=== PATIENT | male | born 1945 | race Caucasian/White ===

== ENCOUNTER 2021-09-19 07:31 | Outpatient (CLI) | payer OTHER, SELFPAY | END 2021-09-19 07:32 | disposition home or self-care (01) | LOC: INJ CL 07:32 | PROVIDERS: PCP Internal Medicine; Visit Provider Family Medicine | DX: M51.36 Other intervertebral disc degeneration, lumbar region (principal); M54.16 Radiculopathy, lumbar region | CPT/HCPCS: 62323; J0702; Q9966 ==

== ENCOUNTER 2021-10-11 08:54 | Outpatient (CLI) | payer OTHER, SELFPAY ==
[2021-10-11 11:42] LABS: Albumin* 4.1 g/dL (3.3-5.0); Chloride* 106 mmol/L (96-114)
[2021-10-11 11:43] LABS: Potassium* 4.2 mmol/L (3.6-5.1); Sodium* 138 mmol/L (135-149)
[2021-10-11 11:45] LABS: Bilirubin Total* 0.5 mg/dL (0.1-1.5); Carbon Dioxide* 26 mmol/L (20-32); Cholesterol* 158 mg/dL (90-199); Creatinine* 0.8 mg/dL (0.5-1.5); Estimated Glomerular Filt Rate 92 ml/min
[2021-10-11 11:46] LABS: Alanine Aminotransferase* 15 U/L (4-50); Alkaline Phosphatase* 94 U/L (40-150); Aspartate Amino Transferase* 21 U/L (12-35); Blood Urea Nitrogen* 9 mg/dL (7-30); Calcium* 9.4 mg/dL (8.4-10.6); Glucose* 96 mg/dL (60-115); HDL Cholesterol* 52 mg/dL (>=40); LDL Cholesterol Calculated 87 mg/dL (<100); Triglycerides* 94 mg/dL (40-149)
[2021-10-11 12:16] LABS: PSA Screen* 1.07 ng/mL (0.10-4.00)
== END 2021-10-11 08:55 | disposition home or self-care (01) ==
PROVIDERS: PCP Internal Medicine; Visit Provider Internal Medicine
DX: J30.2 Other seasonal allergic rhinitis (principal); J44.9 Chronic obstructive pulmonary disease, unspecified; Z12.5 Encounter for screening for malignant neoplasm of prostate; Z13.6 Encounter for screening for cardiovascular disorders
CPT/HCPCS: 80053; 80061; 84153; 84443

== ENCOUNTER 2022-01-22 11:34 | Emergency (ER) | payer OTHER, SELFPAY ==
[2022-01-22 11:46] VITALS: BP 129/77; PULSE 81; RESP 16; TEMP 37.4; O2SAT 95; BMI 26.6
--- NOTE | 2022-01-22 13:28 | ED.GENADULT ---
HPI - General Adult General Time Seen by Provider: 13:29 Date Seen: 01/22/22 Chief complaint: Back Injury/Pain Stated complaint: Lower back/right side pain Time Seen by Provider: 01/22/22 12:00 Source: patient and RN notes reviewed Mode of arrival: ambulatory (With a cane) Limitations: no limitations History of Present Illness HPI narrative: Butch is a 76-year-old male coming into the ER for concern of new right-sided low back issues. Over the last few days he has been starting to have right low back pain that wraps around into the right low abdomen. There has maybe been a little nausea with this. He does note that he has had increased bowel movements but not diarrheal. He has chronic back issues stemming 23 years ago. He relays the history to me that it started with a back surgery in [facility]. They ended up causing a dural leak, and he states he was leaking CSF fluid. He ended up with 2 different surgeries in the same week. He states he ended up seeing the top neurosurgeon in [place] to give him disability. He notes he is had back injections, he is scheduled to see a neurosurgeon this coming month in the beginning of February. No active fevers. He notes he is sleeping but when he goes to get up in the morning they will be severe pain there. He is wondering if this could be something in his abdomen. He has had a CABG per his report. He is taking chronic oxycodone about twice a day and 1000 mg of Tylenol usually twice a day. He states for this new right-sided low back pain he did go to the smoke shop and got some CBD gummies. They did not help at all and he has not tried them again. He was scheduled to get medicinal marijuana but thought twice about it and has not went through with that. He states he was cleared to get it. He is worried about taking it. Related Data Home Medications Medication Instructions Recorded Confirmed aspirin 81 mg chewable tablet 81 mg PO QDAY 10/11/21 01/19/22 atenolol 25 mg tablet 25 mg PO QDAY 10/11/21 01/19/22 colchicine 0.6 mg tablet 0.6 mg PO QDAY 10/11/21 01/19/22 metoprolol succinate 100 mg 100 mg PO QDAY 10/11/21 01/19/22 tablet,extended release 24 hr acetaminophen 500 mg tablet 500 - 1,000 mg PO Q6H PRN 11/09/21 01/19/22 budesonide-formoterol HFA 80 2 inhalation BID 11/09/21 01/19/22 mcg-4.5 mcg/actuation aerosol inhaler naloxone 4 mg/actuation nasal spray 4 intranasal 11/09/21 01/19/22 omeprazole 20 mg capsule,delayed 20 mg PO DAILY 11/09/21 01/19/22 release vitamin E (dl, acetate) 180 mg 180 mg PO QDAY 11/09/21 01/19/22 (400 unit) capsule THC gummies PO PRN 11/10/21 01/19/22 fexofenadine 180 mg tablet 180 mg PO QDAY 11/10/21 01/19/22 (Joanna Allergy) melatonin 5 mg capsule 10 mg PO .Bedtime as needed PRN 11/10/21 01/19/22 cpap 01/17/22 01/19/22 Previous Rx's Medication Instructions Recorded methimazole 5 mg tablet 5 mg PO QDAY #90 tabs 10/02/21 losartan 25 mg tablet 25 mg PO QDAY Hypertension #90 tabs 10/11/21 triamcinolone acetonide 0.1 % 1 applic topical BID #80 grams 11/10/21 topical cream albuterol sulfate 90 mcg/actuation 2 puff inhalation Q4H PRN 11/14/21 aerosol inhaler shortness of breath or wheezing #8.5 grams fluticasone propionate 50 2 spray intranasal BID Allergies 11/21/21 mcg/actuation nasal #48 grams spray,suspension ipratropium 0.5 mg-albuterol 3 mg 3 ml inhalation TID PRN copd 11/21/21 (2.5 mg base)/3 mL nebulization #1,080 mL soln nitroglycerin 0.4 mg sublingual 0.4 mg sublingual Q5-15M Angina 11/21/21 tablet #100 tabs tiotropium bromide 18 mcg capsule 1 cap inhalation QDAY COPD #90 caps 11/21/21 with inhalation device (Spiriva with HandiHaler) bacitracin 500 unit/gram topical 1 applic topical BID Rash #1 ea 12/06/21 ointment allopurinol 100 mg tablet 100 mg PO DAILY #90 tabs 12/11/21 ipratropium bromide 21 mcg (0.03 2 spray intranasal TID #30 mL 12/11/21 %) nasal spray rosuvastatin 40 mg tablet 40 mg PO DAILY #90 tabs 12/11/21 cyanocobalamin (vitamin B-12) 1,000 mcg PO QDAY Anemia #90 tabs 12/13/21 1,000 mcg tablet roflumilast 500 mcg tablet 500 mcg PO QDAY Anemia #90 tabs 12/13/21 (Daliresp) zolpidem 10 mg tablet 10 mg PO QHS Insomnia #30 tabs 01/04/22 nystatin 100,000 unit/mL oral 500,000 unit (5 mL) PO Q6H #200 mL 01/09/22 suspension oxycodone 5 mg capsule 5 mg PO BID PRN pain #60 caps 01/11/22 cholecalciferol (vitamin D3) 25 50 mcg PO QDAY #180 tabs 01/18/22 mcg (1,000 unit) chewable tablet (Vitamin D3) prednisone 20 mg tablet 20 mg PO BID #10 tabs 01/22/22 Allergies Allergy/AdvReac Type Severity Reaction Status Date / Time bupropion Allergy Unknown tinnitus Verified 01/22/22 11:53 isosorbide Allergy Unknown Headache Verified 01/22/22 11:53 spironolactone Allergy Unknown gynecomasti Verified 01/22/22 11:53 a topiramate Allergy Unknown doses Verified 01/22/22 11:53 higher than 50 daily not tolerated venlafaxine Allergy Unknown Anxiety Verified 01/22/22 11:53 Review of Systems Status of ROS: Reports: 10 or more systems reviewed and unremarkable except as noted in History and below [facility] Medical History (Updated 01/22/22 @ 15:54 by Tiffany Correia MD) Allergies Anemia Angina at rest Aortic aneurysm Carpal tunnel syndrome of right wrist Chronic low back pain Chronic neck pain Chronic obstructive pulmonary disease Chronic pancreatitis Chronic right shoulder pain (2018) Chronic, continuous use of opioids Congestive heart failure COPD (chronic obstructive pulmonary disease) Coronary artery disease Enlarged prostate Gastroesophageal reflux disease History of adenomatous polyp of colon (02/12/18) History of calcium pyrophosphate deposition disease (CPPD) History of depression History of malignant neoplasm of skin Hyperlipidemia Hypertension Hyperthyroidism Insomnia Monoclonal gammopathy Obstructive sleep apnea treated with continuous positive airway pressure (CPAP) Peripheral vascular disease Rash Seasonal allergic rhinitis Surgical History (Updated 01/11/22 @ 13:37 by Phyllis Owens) History of aortic aneurysm repair (2012) History of appendectomy History of carpal tunnel surgery of left wrist (2007) History of carpal tunnel surgery of right wrist (11/30/20) History of cholecystectomy History of colonoscopy with polypectomy History of endarterectomy (2012) History of operative procedure on hip (04/01/18) History of rotator cuff surgery (2007) History of spinal surgery History of umbilical hernia repair (04/16/13) S/P cubital tunnel release (11/30/20) Status post six vessel coronary artery bypass graft (1996) Family History (Updated 10/03/21 @ 12:37 by Trevin Vegas) Father Asthma Sister Asthma Breast cancer Lung cancer Mother Dementia Rheumatoid arthritis Social History Narrative: , five daughters, does not use illicit drugs, nonsmoker Smoking Status: Former smoker Do you use any of these nicotine containing products: None Second hand tobacco smoke exposure: No How often do you have a drink containing alcohol: monthly or less How often do you have six or more drinks on one occasion: Less than monthly AUDIT-C Alcohol total score: 2 Non-prescribed substance use: marijuana (any form) Non-prescribed substance use details: was trying THC gummies but not effective and hasn't had them in a while. Feeling down, depressed, or hopeless: several days service: No Exam Const: Vital Signs, click to edit/add: Vital Signs - 24 hr 01/22/22 11:46 01/22/22 14:06 Temperature 99.4 F Pulse Rate [Pulse Oximeter] 81 77 Respiratory Rate 16 20 Blood Pressure [Le ft Upper Arm] 129/77 127/72 Pulse Oximetry 95 96 Oxygen Delivery Me thod Room Air Documenting provider has reviewed patient's vital signs: yes Common normals: no apparent distress, average body habitus, oriented x3, no limitations, healthy appearing and alert General appearance: cooperative, comfortable, well kempt and well developed HENMT: Common normals: normocephalic, head/scalp atraumatic and hearing grossly normal bilaterally Head and scalp: normocephalic and atraumatic Eye: Common normals: PERRL, EOMs intact bilaterally, conjunctivae normal and no scleral icterus Conjunctiva: conjunctiva(e) normal Pupil: PERRL Neck & C-Spine: Common normals: full ROM, no lymphadenopathy, supple, no meningeal signs, no JVD and thyroid normal Thyroid: thyroid normal Chest: Common normals: inspection of chest normal Resp: Common normals: normal respiratory effort, no retractions, no use of accessory muscles and clear to auscultation bilaterally Auscultation: clear to auscultation bilaterally Cardio: Common normals: no JVD, regular rate, regular rhythm, S1 normal heart sound, S2 normal heart sound, no gallops, no clicks and no murmurs Rate: regular rate Rhythm: regular rhythm Heart sounds: S1 normal and S2 normal GI: Common normals: Normal to inspection, nondistended, normoactive bowel sounds present, soft to palpation (Mild right lower abdominal tenderness without rebound or guarding), no hepatosplenomegaly and no masses Palpation: soft (Mild right lower abdominal tenderness without rebound or guarding) and no hepatosplenomegaly : Common normals: no CVA tenderness Bladder/kidney exam: no CVA tenderness Back & Pelvis: Common normals: no CVA tenderness, thoracic and lumbar spine normal to inspection (Outside of well-healed lower central lumbar spine incision), no thoracic nor lumbar tenderness and straight leg raise negative bilaterally Extremity: Other: No lower extremity edema, no calf tenderness. Ambulates with a cane and does not seem to have any significant difficulty doing so. Neuro: Common normals: oriented x3, CN's II-XII intact bilaterally, moves all extremities, no focal motor deficits and no sensory deficits noted Sensorium/orientation: alert Meningeal signs: no meningeal signs Speech: speech normal Psych: Appearance: well kempt Course Course Hospital Course: Agree with patient, given his age do think we need to rule out intra-abdominal pathology. I have discussed with him that it sounds musculoskeletal in I do wonder if it is stemming from his back. We will get a noncontrast CT, obtain some basic blood work as well as attempt to collect a urinalysis from him. If these are normal, think we can go on with the assumption that this is musculoskeletal pain and likely coming from his back. We will guide therapy accordingly. Reevaluation(s) Reevaluation #1: Reviewed with patient his CT is not showing any significant new findings. His labs look reassuring. We discussed that this seems like it might be his back based on the evaluation today. We discussed possibly trying some prednisone. He thinks he would like to try that. He states he has not taken any recently. Time: 15:57 Vital Signs Vital signs: Initial Vital Signs Temperature 99.4 F 01/22/22 11:46 Temperature Source Temporal Artery Scan 01/22/22 11:46 Pulse Rate 81 01/22/22 11:46 Pulse Rhythm 01/22/22 11:46 Pulse Strength 3+ Normal 01/22/22 11:46 Respiratory Rate 16 01/22/22 11:46 Blood Pressure 129/77 01/22/22 11:46 Blood Pressure Mean 94 01/22/22 11:46 Blood Pressure Position Sitting 01/22/22 11:46 Pulse Oximetry 95 01/22/22 11:46 Oxygen Delivery Method 01/22/22 11:46 Vital Signs Temperature 99.4 F 01/22/22 11:46 Pulse Rate 81 01/22/22 11:46 Respiratory Rate 16 01/22/22 11:46 Blood Pressure 129/77 01/22/22 11:46 Pulse Oximetry 95 01/22/22 11:46 Oxygen Delivery Method 01/22/22 11:46 Temperature 99.4 F 01/22/22 11:46 Pulse Rate 77 01/22/22 14:06 Respiratory Rate 20 01/22/22 14:06 Blood Pressure 127/72 01/22/22 14:06 Pulse Oximetry 96 01/22/22 14:06 Oxygen Delivery Method 01/22/22 11:46 Medical Decision Making Lab Data Lab results reviewed: Yes I reviewed the patient's lab results Labs: Lab Results 01/22/22 01/22/22 01/22/22 Range/Units 02:23 02:23 13:43 WBC 8.66 (4.50-11.00) K/uL RBC 4.65 (4.30-5.90) m/uL Hgb 13.2 L (13.5-17.5) gm/dL Hct 41.4 (37.0-53.0) % MCV 89 (80-100) fL MCH 28 (26-34) pg MCHC 32 (32-36) gm/dL RDW Coeff of Donnie 13.0 (11.5-15.5) % Plt Count 179 (140-440) K/uL Neut % (Auto) 66.6 (42.0-72.0) % Lymph % (Auto) 23.1 (20-44) % [place] % (Auto) 8.1 (0.0-11.0) % Eos % (Auto) 1.8 (0.0-7.0) % Baso % (Auto) 0.1 (0.0-3.0) % Neut # (Auto) 5.76 (1.7-7.0) K/uL Lymph # (Auto) 2.00 (0.90-2.90) K/uL [place] # (Auto) 0.70 (0.00-0.90) K/UL Eos # (Auto) 0.16 (0.00-0.50) K/uL Baso # (Auto) 0.01 (0.00-0.30) K/uL Abs Immat Gran (auto) 0.03 (0.00-0.30) K/uL Imm/Tot Granulo (auto) 0.3 % Sodium 137 (135-149) mmol/L Potassium 4.4 (3.6-5.1) mmol/L Chloride 104 (96-114) mmol/L Carbon Dioxide 25 (20-32) mmol/L BUN 19 (7-30) mg/dL Creatinine 0.9 (0.5-1.5) mg/dL Estimated Creat Clear 72.13 Estimated GFR 89 ml/min Glucose 98 (60-115) mg/dL Calcium 9.4 (8.4-10.6) mg/dL Urine Color Yellow (Yellow) Urine Appearance Clear (Clear) Urine pH 5.0 (5.0-8.5) Ur Specific [place] >= 1.030 (1.000-1.030) Urine Protein Negative (Negative) Urine Glucose (UA) Negative (Negative) Urine Ketones Negative (Negative) Urine Blood Negative (Negative) Urine Nitrite Negative (Negative) Urine Bilirubin Negative (Negative) Urine Urobilinogen 0.2 (0.2-1.0) Ur Leukocyte Esterase Negative (Negative) Imaging Data CT scan - abdomen: Attestation: I have reviewed the pertinent imaging results. Radiologist's impression: Patient: BUTCH CANTRELL Facility:[facility] Patient ID:?[id number] Site Patient ID:?[id number]. Site :?[id number] Study:?CT Abdomen/Pelvis WITHOUT-01/22/2022 2:03:22 PM Ordering Physician:Mariusz Allen Final Report: INDICATION: Low back pain, right-sided pain. TECHNIQUE: CT of the abdomen and pelvis without intravenous contrast. Coronal and sagittal reconstructions. COMPARISON: CT of the abdomen and pelvis 02/11/2020. FINDINGS: The unenhanced liver, spleen, and adrenal glands are normal in appearance. Cholecystectomy. No biliary dilation. Scattered calcifications throughout the pancreas likely related to sequela of prior pancreatitis. No hydronephrosis or ureteral dilation. Mildly prominent bilateral extrarenal pelves. No obstructing urinary calculi identified. The bladder is normal in appearance. Mildly enlarged prostate gland. No small bowel dilation. Moderate to large amount of stool throughout the colon. Redundant sigmoid colon. Appendectomy. No intraperitoneal free air or fluid. Aortoiliac vascular calcifications. Infrarenal abdominal aortic aneurysm status post aortobiiliac stent graft. Stable size of the excluded aneurysm sac. Graft patency cannot be evaluated without IV contrast. Surgical clips in the groin bilaterally. No lymphadenopathy. Degenerative changes of the spine. Stable Schmorl`s nodes in the inferior endplates of L1 and L2. New prominent endplate sclerosis at L1-L2. Posterior instrumented fusion of L4-S1. Stable grade 1-2 anterolisthesis of L5 on S1. Degenerative changes of the hips with sclerosis in the femoral heads. Prior screw tract left proximal femur. Linear atelectasis or scarring in the lung bases. Coronary artery calcifications. IMPRESSION: 1. No acute findings in the abdomen or pelvis on this noncontrast exam. 2. Moderate to large amount of stool. 3. New prominent endplate sclerosis at L1-L2. Please note that all CT scans at this facility use dose modulation, iterative reconstruction, and/or weight-based dosing when appropriate to reduce radiation dose to as low as reasonably achievable. Dictated by Chhaya Sauceda MD @ 01/22/2022 3:44:37 PM (Electronic Signature) Critical Care Time Critical Care Time Critical Care Time: No Discharge Plan Discharge Clinical Impression: Acute right-sided low back pain Patient Disposition: Home, Self-Care Condition: Stable Instructions: Acute Low Back Pain (ED) Additional Instructions: Try prednisone, take as prescribed and take with food to protect your stomach. Follow up in clinic with her primary care provider in the next 1-2 weeks, sooner if worsening or concerns. If you develop any bowel or bladder dysfunction, concerns of motor dysfunction or weakness into the legs, do need to be re-evaluated. Activity Level: Activity as Tolerated Prescriptions: New prednisone 20 mg tablet 20 mg PO BID Qty: 10 0RF No Action naloxone 4 mg/actuation spray,non-aerosol 4 intranasal vitamin E (dl, acetate) 180 mg (400 unit) capsule 180 mg PO QDAY acetaminophen 500 mg tablet 500 - 1,000 mg PO Q6H PRN Rx Instructions: NO MORE THAN 4000 MG/DAY omeprazole 20 mg capsule,delayed release(DR/EC) 20 mg PO DAILY budesonide-formoterol 80-4.5 mcg/actuation HFA aerosol inhaler 2 inhalation BID fexofenadine [Joanna Allergy] 180 mg tablet 180 mg PO QDAY melatonin 5 mg capsule 10 mg PO .Bedtime as needed PRN THC gummies PO PRN triamcinolone acetonide 0.1 % cream 1 applic topical BID Qty: 80 0RF (DME) cpap 0 .Route .MEDSUPPLY colchicine 0.6 mg tablet 0.6 mg PO QDAY metoprolol succinate 100 mg tablet extended release 24 hr 100 mg PO QDAY atenolol 25 mg tablet 25 mg PO QDAY aspirin 81 mg tablet,chewable 81 mg PO QDAY nystatin 100,000 unit/mL suspension 500,000 unit PO Q6H Qty: 200 0RF Rx Instructions: swish and swallow methimazole 5 mg tablet 5 mg PO QDAY Qty: 90 3RF losartan 25 mg tablet 25 mg PO QDAY Qty: 90 3RF albuterol sulfate 90 mcg/actuation HFA aerosol inhaler 2 puff inhalation Q4H PRN (Reason: shortness of breath or wheezing) Qty: 8.5 11RF Spiriva with HandiHaler 18 mcg capsule, w/inhalation device 1 cap inhalation QDAY Qty: 90 3RF ipratropium-albuterol 0.5 mg-3 mg(2.5 mg base)/3 mL solution for nebulization 3 ml inhalation TID PRN (Reason: copd) Qty: 1080 2RF nitroglycerin 0.4 mg tablet, sublingual 0.4 mg sublingual Q5-15M Qty: 100 2RF fluticasone propionate 50 mcg/actuation spray,suspension 2 spray intranasal BID Qty: 48 2RF bacitracin 500 unit/gram ointment 1 applic topical BID Qty: 1 1RF allopurinol 100 mg tablet 100 mg PO DAILY Qty: 90 2RF rosuvastatin 40 mg tablet 40 mg PO DAILY Qty: 90 2RF ipratropium bromide 21 mcg (0.03 %) spray,non-aerosol 2 spray intranasal TID Qty: 30 8RF cyanocobalamin (vitamin B-12) 1,000 mcg tablet 1,000 mcg PO QDAY Qty: 90 3RF Daliresp 500 mcg tablet 500 mcg PO QDAY Qty: 90 2RF zolpidem 10 mg tablet 10 mg PO QHS Qty: 30 0RF oxycodone 5 mg capsule 5 mg PO BID PRN (Reason: pain) Qty: 60 0RF cholecalciferol (vitamin D3) [Vitamin D3] 25 mcg (1,000 unit) tablet,chewable 50 mcg PO QDAY Qty: 180 3RF Follow Up/Referrals: Yordy Morin MD [Primary Care Provider] - Stand Alone Forms: [employer] Info Instructions
--- NOTE | 2022-01-22 13:42 | CRLHL7_ITS ---
For Patients: As a result of the Century Cures Act, medical imaging exams and procedure reports are released immediately into your electronic medical record. You may view this report before your referring provider. If you have questions, please contact your health care provider. INDICATION: Low back pain, right-sided pain. TECHNIQUE: CT of the abdomen and pelvis without intravenous contrast. Coronal and sagittal reconstructions. COMPARISON: CT of the abdomen and pelvis 02/11/2020. FINDINGS: The unenhanced liver, spleen, and adrenal glands are normal in appearance. Cholecystectomy. No biliary dilation. Scattered calcifications throughout the pancreas likely related to sequela of prior pancreatitis. No hydronephrosis or ureteral dilation. Mildly prominent bilateral extrarenal pelves. No obstructing urinary calculi identified. The bladder is normal in appearance. Mildly enlarged prostate gland. No small bowel dilation. Moderate to large amount of stool throughout the colon. Redundant sigmoid colon. Appendectomy. No intraperitoneal free air or fluid. Aortoiliac vascular calcifications. Infrarenal abdominal aortic aneurysm status post aortobiiliac stent graft. Stable size of the excluded aneurysm sac. Graft patency cannot be evaluated without IV contrast. Surgical clips in the groin bilaterally. No lymphadenopathy. Degenerative changes of the spine. Stable Schmorl`s nodes in the inferior endplates of L1 and L2. New prominent endplate sclerosis at L1-L2. Posterior instrumented fusion of L4-S1. Stable grade 1-2 anterolisthesis of L5 on S1. Degenerative changes of the hips with sclerosis in the femoral heads. Prior screw tract left proximal femur. Linear atelectasis or scarring in the lung bases. Coronary artery calcifications. IMPRESSION: 1. No acute findings in the abdomen or pelvis on this noncontrast exam. 2. Moderate to large amount of stool. 3. New prominent endplate sclerosis at L1-L2. Please note that all CT scans at this facility use dose modulation, iterative reconstruction, and/or weight-based dosing when appropriate to reduce radiation dose to as low as reasonably achievable. Dictated by Chhaya Sauceda MD @ 01/22/2022 3:44:37 PM (Electronically Signed)
--- OUTSIDE RECORDS SUMMARY | 2022-01-22 13:46 | XMS_ITS | Clinical Summary ---
:1945 Author Organization [facility] [place] [address] Care Team Providers Name Role Phone Yordy Morin MD Primary Care Provider Allergies Active Allergy Reactions Severity Noted Date Comments Bupropion Tinnitus 12/30/2017 tinnitus Isosorbide Headache 08/19/2013 Headache Spironolactone Other - Describe In Medium 10/31/2018 gyneco mastia Comment Field Topiramate *Unknown 12/01/2018 Doses higher th an 50 daily not tolerated Venlafaxine Anxiety 07/13/2019 anxiety Medications Medication Sig Dispensed Refills Start Date End Date Status albuterol HFA 0 08/16/2021 Activ e (PRO-AIR; VENTOLIN; PROVENTIL) 90 mcg/actuation inhaler allopurinoL 0 07/05/2021 Active (ZYLOPRIM) 100 mg tablet Symbicort 80-4.5 0 08/07/2021 Ac tive mcg/actuation (80-4.5 mcg each actuation) inhaler clindamycin 1% 0 09/01/2020 Acti ve (CLEOCIN-T) 1 % lotion cyanocobalamin Take 1 Tablet 0 01/26/2020 Active (VITAMIN B12) 1,000 by mouth once mcg tablet daily. clotrimazole SLOWLY DISSOLVE 0 02/16/2020 Active (MYCELEX JORDANA) 10 ONE JORDANA IN mg jordana MOUTH 5 TIMES DAILY FOR 6 DAYS fluticasone (50 mcg USE 2 SPRAYS 0 09/11/2019 Active per actuation) nasal INTO BOTH solution (FLONASE) NOSTRILS DAILY ipratropium 0 06/07/2021 Active (ATROVENT NASAL) 21 mcg (0.03 %) nasal spray albuterol-ipratropiu 0 06/19/2021 Active m (DUONEB) (2.5-0.5 mg) in 3 mL NEBULIZATION solution losartan (COZAAR) 25 0 06/27/2021 Active mg tablet melatonin 3 mg Take 3 mg by 0 Ac tive tablet mouth. methIMAzole 0 10/23/2020 Active (TAPAZOLE) 5 mg tablet nitroglycerin 0 06/20/2021 Activ e (NITROSTAT) 0.4 mg sublingual tablet omeprazole 0 08/16/2021 Active (PRILOSEC) 20 mg Delayed-Release capsule oxyCODONE 0 08/10/2021 Active (ROXICODONE) 5 mg immediate release tablet Daliresp 500 mcg 0 07/04/2021 Ac tive tablet rosuvastatin 0 07/05/2021 Active (CRESTOR) 40 mg tablet sildenafil citrate TAKE ONE-HALF 0 01/11/2021 Active (VIAGRA) 100 mg TO ONE TABLET tablet BY MOUTH DAILY NEEDED spiriva 18 mcg 0 06/19/2021 Acti ve inhalation capsule colchicine 0.6 mg Take 1 Tablet 0 10/27/2019 Active tablet by mouth 2 times daily. tiotropium (spiriva) INHALE THE 0 01/08/2020 Active 18 mcg inhalation CONTENTS OF 1 capsule CAPSULE ONE TIME DAILY tamsulosin (FLOMAX) Take 1 Capsule 0 10/16/2019 Active 0.4 mg capsule by mouth once daily. atenoloL (TENORMIN) Take 25 mg by 0 Active 25 mg tablet mouth. cholecalciferol Take 1 Capsule 0 12/25/2021 Active (Vitamin D-3) 2,000 (2,000 units) unit capsule by mouth two times daily. metoprolol succinate Take 1 Tablet 90 Tablet 0 01/12/2022 Active (TOPROL XL) 100 mg (100 mg) by Sustained-Release mouth once tabletIndications: daily. Please ASHD schedule with (arteriosclerotic cardiology for heart disease) additional refills. metoprolol succinate Take 1 Tablet 90 Tablet 4 04/10/2021 11/0 Discontinued (Toprol XL) 100 mg (100 mg) by 2 Sustained-Release mouth once tabletIndications: daily. ASHD (arteriosclerotic heart disease) Active Problems Problem Noted Date Benign prostatic hyperplasia with weak urinary stream 10/16/2019 Overview: Last Assessment & Plan: Formatting of this note might be differe nt from the original. Urology appt next week Monoclonal gammopathy 08/19/2019 Arthritis of right acromioclavicular joint 07/09/2019 Overview: Last Assessment & Plan: Formatting of this note might be differe nt from the original. Orthopedics steroid injection 2 years ag o. He does not recall benefit or lack thereof. Recommended trial of repeat injection Avascular necrosis of right humeral head 07/09/2019 Overview: Last Assessment & Plan: Formatting of this note might be differe nt from the original. Complains of shoulder pain. Imaged 2 yea rs ago with possible loose body. He has topical and oral analgesics Actinic keratosis 10/16/2018 Overview: Last Assessment & Plan: Formatting of this note might be differe nt from the original. Discussed chapo history, rx Avascular necrosis of bone of hip, left 10/16/2018 Overview: Last Assessment & Plan: Formatting of this note might be differe nt from the original. He complains about pain. S/p coring proc edure, bike every other day. Discussed chronic pain, options. Ortho involved Intrinsic eczema 09/04/2018 Graves disease 06/30/2018 Overview: Last Assessment & Plan: Formatting of this note might be differe nt from the original. Endocrinology adjusted methimazole Tinnitus, bilateral 05/09/2018 Overview: Last Assessment & Plan: Formatting of this note might be differe nt from the original. Reduced with new hearing aides Iron deficiency 03/28/2018 History of tobacco abuse 08/21/2017 Overview: Last Assessment & Plan: Formatting of this note might be differe nt from the original. Now quit 3 years Peripheral polyneuropathy 08/21/2017 Overview: Last Assessment & Plan: Formatting of this note might be differe nt from the original. Opioid therapy Continuous opioid dependence 05/21/2017 Overview: Last Assessment & Plan: Formatting of this note might be differe nt from the original. Stable use Chronic pain syndrome 04/22/2017 Overview: Formatting of this note might be differe nt from the original. Patient is followed by Dr Brandon li MD for ongoing prescription of pain medication. All refills should only be approved by this provider, or covering partner. Last Assessment & Plan: Formatting of this note might be differe nt from the original. Controlled substance agreement filed Primary osteoarthritis of ankle 03/05/2017 Sleep related hypoventilation in conditions classified elsewhere 02/03/2016 Overview: Formatting of this note might be differe nt from the original. C PAP Replacing diagnoses that were inactivate d after the 12/09/2020 regulatory import. Primary osteoarthritis of right foot 07/25/2015 Personal history of calcium pyrophosphate deposition d isease (CPPD) 07/04/2015 Overview: Last Assessment & Plan: Formatting of this note might be differe nt from the original. Colchicine therapy Panlobular emphysema 06/13/2015 Overview: Last Assessment & Plan: Formatting of this note might be differe nt from the original. NUR, seems improved subjectively. Carpal tunnel syndrome of right wrist 01/31/2015 REGINALDO (obstructive sleep apnea) 11/23/2014 Overview: Last Assessment & Plan: Formatting of this note might be differe nt from the original. Complex sleep-disordered breathing with central apnea. No CPAP Vitamin B12 deficiency without anemia 08/10/2014 Overview: Formatting of this note might be differe nt from the original. Diagnosis updated by automated process. Provider to review and confirm. Peripheral vascular disease 02/19/2014 Overview: Last Assessment & Plan: Formatting of this note is different fro m the original. BP Readings from Last 1 Encounters: 08/17/19 117/71 continue Formatting of this note might be differe nt from the original. Right femoral endarterectomy with perica rdial patch angioplasty 2012 Last Assessment & Plan: Formatting of this note might be differe nt from the original. S/p Angioplasty, symptoms stable Coronary artery disease involving [place] coronary humberto ry of [place] heart 08/19/2013 without angina pectoris Overview: Formatting of this note might be differe nt from the original. cardiac cath 08/2017: obtuse marginal is chronically occluded; CABG 1996: ADRIENNE to RCA, sequential ARRIAZA to D1, D2 & distal LAD, SVG to OM Last Assessment & Plan: Formatting of this note might be differe nt from the original. Asymptomatic. Cardiology in October Ischemic cardiomyopathy 08/19/2013 Overview: Last Assessment & Plan: Formatting of this note might be differe nt from the original. Discussed. . Nitroglycerin spray rx sent . GERD (gastroesophageal reflux disease) 07/31/2013 Onychomycosis 06/09/2013 Hyperlipidemia LDL goal <70 02/17/2013 Overview: Last Assessment & Plan: Formatting of this note might be differe nt from the original. Treated, continue Rosuvastatin 40mg. Recurrent major depressive disorder, in partial remiss ion 01/28/2013 Overview: Last Assessment & Plan: Formatting of this note might be differe nt from the original. Did not tolerate antidepressants, declin es further interventions Abdominal aortic aneurysm 01/21/2013 Overview: Formatting of this note might be differe nt from the original. Endovascular repair Hx of coronary artery disease 01/21/2013 Overview: Last Assessment & Plan: Formatting of this note might be differe nt from the original. Chronic non cardiac chest pain. Cardiolo gy last 10/2018. Please refer to that note COPD (chronic obstructive pulmonary disease) 2 Tobacco dependence syndrome 08/01/2011 Encounters Date Type Specialty Care Team Description 01/12/2022 Dalton Díaz Refil l Request (Metoprolol Succinate) 12/25/2021 Office Visit Nigel Lanza, Musculo skeletal Problem (2 MD month follow up -[facility]: Left hip intra-artic ular injection on ) 12/25/2021 Travel 11/01/2021 Lab Requisition Emily Pryor MD 10/25/2021 Procedure Only Nigel Lanza, Han acevedoe ([facility]: Left hip MD intra-articular ... 10/25/2021 Travel from Last 3 Months Social History Tobacco Use Types Packs/Day Years Used Date Former Smoker Quit: 09/2016 Smokeless Tobacco: Never Used Tobacco Cessation: Counseling Given: Yes Alcohol Use Standard Drinks/Week Comments Not Currently 0 (1 standard drink = 0.6 oz pure alcoho l) Sex Assigned at Date Recorded Not on file COVID-19 Exposure Response Date Recorded In the last 10 days, have you been in contact with No / Unsu re 12/25/2021 7:31 AM CDT someone who was confirmed or suspected to have Coronavirus/COVID-19? Obstetrics History Last Filed Vital Signs Vital Sign Reading Time Taken Comments Blood Pressure 116/65 12/25/2021 8:00 AM CDT Pulse 67 12/25/2021 8:00 AM CDT Temperature 36.6 ??C (97.9 ??F) 12/25/2021 8:00 AM CDT Respiratory Rate 18 10/25/2021 8:22 AM CDT Oxygen Saturation 95% 12/25/2021 8:00 AM CDT Inhaled Oxygen Concentration - - Weight 92.5 kg (204 lb) 12/25/2021 8:00 AM CDT Height - - Body Mass Index - - Plan of Treatment Health Maintenance Due Date Last Done Comments Pneumococcal series for age 65+ (1 - PCV) 1952 Tdap 1957 Depression screening for age 12+ 1958 BMI (ht and wt on same day) for age 18+ 1964 Hepatitis C screening for age 18-79 1964 Tetanus booster 1966 Colonoscopy through age 75 10/04/1991 Lipids for age 45-75 10/04/1991 Zoster (shingles) series for age 50+ (1 of 1996 2) AAA screening age 55-77 2001 Medicare Wellness for age 65+ 10/04/2011 COVID-19 vaccine series (3 - Booster for 08/04/2020 021, 05/12/2020 Moderna series) Influenza for age 65+ 11/09/2021 Procedures Procedure Name Priority Date/Time Associated Diagnosis Comme nts LAB TRACKING EVENT Routine 10/31/2021 3:30 PM CDT PATH TISSUE EXAM Routine 10/31/2021 3:30 PM Resul ts for this CDT procedure are i n the results section. BEDSIDE US STUDY Routine 10/25/2021 9:51 AM Chronic left hip pain Results for this ARCHIVE CDT Primary osteoarthritis proce dure are in of left hip the results section. from Last 3 Months Results LAB TRACKING EVENT (10/31/2021 3:30 PM CDT) Specimen Anatomical Collection Method Collection Time Receive d Time (Source) Location / / Volume Laterality Other (Other) Client Collect / 10/31/2021 3:30 PM 10/10 3:32 Unknown CDT PM CDT Emily Pryor MD LAB BILL ONLY Performing Organization Address City/State/ZIP Code Phon e Number [facility] [address] [place] [address] LABORATORY-CENTRAL 2000 LABORATORY PATH TISSUE EXAM (10/31/2021 3:30 PM CDT) Component Value Ref Test Analysis Performed At [facility] gist Range Method Time Signature Case Report Pathology Report ?Case: [id number] ? 11/03/2021 [facility] Authorizing Provider: ??Emily Jackson MD ?? Collected: ? 10/31/2021 1530 ? 10:40 AM HEALTH Ordering Location: ? [facility] ?Received: ?11/01/2021 1647 ? CDT [facility]-C Pathologist: ? Nba Diehl MD ? ENTRAL Specimen: ?Right Elbow ? LABORATORY Final A) SKIN, RIGHT ELBOW, BIOPSY: 11/03/2021 [facility] Electronically Diagnosis Squamous cell carcinoma in situ: 10:40 A [facility] signed by Shanita, ?? a. Margins: POSITIVE (Deep and peripheral) CDT LABORATORY-Meme Arango MD on ?? b. No evidence of invasive neoplasm ENTRAL 11/03/2021 at LABORATORY 10:40 AM Clinical A) r/o BCC vs SCC 11/03/2021 [facility] Information vs. irritated 10:[address] [facility] solar lentigo CDT LABORATORY-C [facility]OR[facility]ORY Gross A) Received in formalin, lab eled with the patient's name and right elbow, is a 1.3 x 1.0 cm skin biopsy. There is a 1.2 x 0.9 cm crusted dawson lesion. The specimen is inked red, sectioned and entirely submitted in 2 cassettes. 11/03/2021 [facility] Description 10:[address] [facility] SSS 11/01/2021 CDT LABORATORY-C [facility] LABORATORY Microscopic The final diagnosis is based on microscopic examination of appropriate sections of all specimens. 11/03/2021 [facility] Description 10:40 [facility] CDT LABORATORY-C A) Sections show a hyperkera totic surface epithelium with significant cytologic atypia, marked lack of polarization, and mitotic activity but no invasive component. There is solar elastosis. The presence of red ink is confirmed on tissue sections. ENTRVT LABORATORY Additional 11/03/2021 [facility] Information Interpreted at [facility], Central Laboratory - [address], [place] [address] 10:40 AM HEALTH CDT LABORATORY-C ENTRAL LABORATORY Specimen Anatomical Collection Method Collection Time Receive d Time (Source) Location / / Volume Laterality Other (Right 10/31/2021 3:30 PM 4:47 Elbow) CDT PM CDT Emily Pryor MD PATHOLOGY/CYTOLOGY Performing Organization Address City/State/ZIP Code Phon e Number [facility] [address] [place] [address] LABORATORY-CENTRAL 2000 LABORATORY BEDSIDE US STUDY ARCHIVE (10/25/2021 9:51 AM CDT) Specimen (Source) Anatomical Location Collection Method / Collectio n Time Received Time / Laterality Volume Narrative Vandana [place] - 10/25/2021 9:51 AM CDT The patient was seen for ultrasound guided injection by Dr. Nigel Lanza. Ultrasound was not used for diagnostic p urposes, but to guide the needle placement and document the position of the injection. ?? See patient's EPIC encounter for the det ail of the procedure; see ETHEL for saved images of the injection. Nigel Lanza MD PROCEDURE ORD from Last 3 Months Insurance Payer Benefit Plan / Subscriber ID Effective Dates Phone Addre ss Type Group HUMANA GOLD MR HUMANA CHOICE [id number] 2017-Present [address] [address] [place] [address] Care Teams Cranberry Grower Relationship Specialty Start Date End Date Yordy Morin MD PCP - General Internal Medicine 08/17/211999 [place] [address]
[2022-01-22 14:06] VITALS: BP 127/72; PULSE 77; RESP 20; O2SAT 96
[2022-01-22 14:31] LABS: Appearance Urine Clear (Clear); Bilirubin Urine Negative (Negative); Blood Urine Negative (Negative); Color Urine Yellow (Yellow); Glucose Urine Negative (Negative); Ketones Urine Negative (Negative); Leukocyte Esterase Urine Negative (Negative); Nitrite Urine Negative (Negative); Protein Urine Negative (Negative); Specific Gravity Urine >= 1.030 (1.000-1.030); Urobilinogen Urine 0.2 (0.2-1.0)
[2022-01-22 14:37] LABS: Basophils Absolute Auto 0.01 K/uL (0.00-0.30); Basophils Percent Auto 0.1 % (0.0-3.0); Eosinophils Absolute Auto 0.16 K/uL (0.00-0.50); Eosinophils Percent Auto 1.8 % (0.0-7.0); Hematocrit 41.4 % (37.0-53.0); Hemoglobin* 13.2 gm/dL (13.5-17.5); Immature Granulocytes Abs Auto 0.03 K/uL (0.00-0.30); Immature Granulocytes Pct Auto 0.3 %; Lymphocytes Percent Auto 23.1 % (20-44); Mean Corpuscular HGB Conc 32 gm/dL (32-36); Mean Corpuscular Hemoglobin 28 pg (26-34); Mean Corpuscular Volume 89 fL (80-100); Monocytes Percent Auto 8.1 % (0.0-11.0); Neutrophils Absolute Auto 5.76 K/uL (1.7-7.0); Neutrophils Percent Auto 66.6 % (42.0-72.0); Platelet Count* 179 K/uL (140-440); Red Blood Count 4.65 m/uL (4.30-5.90); White Blood Count* 8.66 K/uL (4.50-11.00)
[2022-01-22 14:39] LABS: Slide Review Reflex No
[2022-01-22 15:03] LABS: Chloride* 104 mmol/L (96-114)
[2022-01-22 15:04] LABS: Potassium* 4.4 mmol/L (3.6-5.1); Sodium* 137 mmol/L (135-149)
[2022-01-22 15:06] LABS: Creatinine* 0.9 mg/dL (0.5-1.5); Est. Creatinine Clearance* 72.13; Estimated Glomerular Filt Rate 89 ml/min
[2022-01-22 15:07] LABS: Blood Urea Nitrogen* 19 mg/dL (7-30); Calcium* 9.4 mg/dL (8.4-10.6); Carbon Dioxide* 25 mmol/L (20-32); Glucose* 98 mg/dL (60-115)
[2022-01-22 17:01] LABS: RBC Urine 0-2 (0-2); WBC Urine 0-2 (0-5)
== END 2022-01-22 16:11 | disposition home or self-care (01) ==
PROVIDERS: Emergency Provider Family Medicine; PCP Internal Medicine
DX: M54.50 Low back pain, unspecified (principal)
CPT/HCPCS: 36415; 74176; 80048; 81001; 85025; 99284

== ENCOUNTER 2022-04-25 06:02 | Day surgery (SDC) | payer OTHER, SELFPAY ==
[2022-04-25] MEDS: LACTATED RINGERS 1000 ML 1,000 ML 100 ML IV (06:15)
[2022-04-25 06:37] VITALS: BMI 27.7
[2022-04-25 06:47] VITALS: BP 139/76; PULSE 61; RESP 18; TEMP 37.1; O2SAT 95
--- NOTE | 2022-04-25 06:51 | SUR.PREOP ---
Patient provided home covid negative results to RN.
[2022-04-25] MEDS: SODIUM CHLORIDE 0.9 % (FLUSH) 10 ML SYRINGE IVF (06:59)
[2022-04-25] MEDS: fentaNYL 100 MCG/2 ML inj IVP (07:17)
[2022-04-25] MEDS: MIDAZOLAM HCL 1 MG/ML inj IVP (07:17)
[2022-04-25 07:18] VITALS: BP 158/85; PULSE 65; RESP 18; O2SAT 97
[2022-04-25 07:25] VITALS: BP 114/75; PULSE 64; RESP 18; O2SAT 97
--- NOTE | 2022-04-25 07:26 | SUR.PREOP ---
TIME?OUT:?0716 PT/natalia castilloRN/Dr. Matt MDA?VERIFICATION?OF?SURGICAL?SITE left wrist,?PROCEDURE,?AND?CONSENT OBTAINED?PRIOR?TO?INVASIVE?PROCEDURE.
[2022-04-25] MEDS: CEFAZOLIN 2 GM in 0.9 % SODIUM CHLORIDE Mini-bag 100 ML IVPB (07:38)
[2022-04-25 08:15] VITALS: BP 120/75; PULSE 67; RESP 14; TEMP 37; O2SAT 91
--- NOTE | 2022-04-25 08:21 | W.ANESCHARGE ---
Anesthesia Charges Start Date/Time Anesthesia Start Date: 04/25/22 Anesthesia Start Time: 07:32 Stop Date/Time Anesthesia Stop Date: 04/25/22 Anesthesia Stop Time: 08:17
[2022-04-25 08:30] VITALS: BP 130/82; PULSE 61; RESP 16; O2SAT 91
[2022-04-25 08:45] VITALS: BP 131/83; PULSE 60; RESP 16; O2SAT 93
--- NOTE | 2022-04-25 08:55 | P.NB_ITS ---
Nerve Block Nerve Block Time Seen by Provider: 07:20 Date Seen: 04/25/22 Type of block requested by surgeon for post-operative analgesia: axillary Side: right Time out performed: Yes Verification of patient name: Yes Verification of date of : Yes Site marking: site marked Name of person performing procedure: Matt Continuous monitoring Was continuous monitoring of O2 sat, B/P, lunchroom monitor, recorded every 15 minutes?: Yes Procedure Checklist: sterile prep, needles and gloves Ultrasound guided. Images saved: Yes Medications given in 5ml increments after negative aspiration: Ropivicaine %: 0.5 mL: 10 Needle gauge: 22 and Lidocaine %: 2 mL: 15 Needle gauge: 22 Patient tolerated procedure well: Yes Additional comments: Needle noted adjacent to nerve Block Charges Block Charge (with Pro Fee): Brachial Plexus Use of Ultrasound Machine for Block: Yes- US Guidance/pain block
--- NOTE | 2022-04-25 08:56 | W.ANESCHARGE ---
Anesthesia Charges Start Date/Time Anesthesia Start Date: 04/25/22 Anesthesia Start Time: 07:32 Stop Date/Time Anesthesia Stop Date: 04/25/22 Anesthesia Stop Time: 08:17 Summary Extremes of Age - Over 70 or under 1: MDA
--- NOTE | 2022-04-25 09:03 | PM.ORPRC ---
Procedure Note Date of procedure: 04/25/22 Procedure: PREOPERATIVE DIAGNOSIS: 1. Left volar wrist benign cyst POSTOPERATIVE DIAGNOSIS: 1. Left volar wrist benign cyst 2. Left wrist scar tissue overlying median nerve through the carpal tunnel PROCEDURE: 1. Left volar wrist benign cyst open excision 2. Left open carpal tunnel release SURGEON: Jason Adams MD. CUSTOMER CARE MANAGER: Trevor Seals PA-C - Of note, an respiratory therapist assistant was critical for this case to aid in patient positioning, tissue retraction, limb manipulation/positioning, patient safety, & closure. ANESTHESIA: Regional block plus MAC EBL: Less than 1 mL IMPLANTS: None TOURNIQUET: 9 minutes at 225 torr COMPLICATIONS: None evident INDICATIONS: The patient is a pleasant 76-year-old male who has experienced left volar wrist benign cyst development. This was suspicious/consistent with a ganglion cyst. This became quite prominent and was putting lateral pressure with a mass effect in the volar wrist. Intermittent causing some numbness tingling symptoms. Given the size and location, surgery was indicated for cyst excision. Upon making our incision and identified the cyst, we also found there was significant thickened scar tissue overlying the median nerve through the carpal tunnel. Given the failure of nonoperative management, and how this affects daily life, surgery was recommended. DESCRIPTION OF PROCEDURE: Following a thorough discussion of risks, benefits, and alternatives consent was obtained and the operative extremity was marked. The patient was brought to the operating room and placed supine on the operating table. 2 g IV Ancef were administered within 1 hour incision preoperatively. Proper time-out was performed identifying proper patient, site, and procedure. The operative extremity was prepped and draped in the appropriate sterile fashion using ChloraPrep. The limb was exsanguinated and the tourniquet inflated. Longitudinal incision was made on the volar hand base in line with the radial border the ring finger. This extended from Ruiz's cardinal line more proximally. As it approached the wrist crease, we angled it to minimize any risk for contracture through this flexor crease. This cyst was encountered in a superficial manner but tracked deep. It was into the carpal tunnel itself. At 1 point, the cyst sac was punctured and a thick, clear, gelatinous fluid was expressed consistent with a ganglion cyst. The sac wall was excised and sent for permanent pathology. Thereafter, as we had penetrated into the carpal tunnel, for the scar tissue was seen both proximally and distally throughout the length of the carpal tunnel. We released this with a combination of 15 blade scalpel and Metzenbaum scissors under direct visualization. The carpal tunnel release was complete from distal to proximal At this stage, the tourniquet was deflated and hemostasis achieved. Closure was performed with 4-O nylon. Soft dressings were applied, and the patient was awoken/transferred to the recovery room in stable condition. PLAN: 1. Encourage elevation of the operative extremity. 2. Range of motion of the operative extremity/digits as tolerated. 3. Ibuprofen, acetaminophen and/or Percocet as needed for pain. 4. Follow up with PA visit in 12-16 days for wound check and suture removal.
== END 2022-04-25 09:09 | disposition home or self-care (01) ==
PROVIDERS: PCP Internal Medicine; Visit Provider Orthopaedic Surgery Sports Medicine
PROC: (CPT 25111; principal; 2022-04-25 07:30)
DX: M67.432 Ganglion, left wrist (principal); G56.02 Carpal tunnel syndrome, left upper limb
CPT/HCPCS: 25111; 64721; 00400; 64415; 76942; 88304; 99100; J0690; J2250; J2704; J2795; J3010; J7120

== ENCOUNTER 2022-08-17 07:44 | Outpatient (CLI) | payer OTHER, SELFPAY ==
--- NOTE | 2022-08-17 08:15 | CRLHL7_ITS ---
For Patients: As a result of the Century Cures Act, medical imaging exams and procedure reports are released immediately into your electronic medical record. You may view this report before your referring provider. If you have questions, please contact your health care provider. Technique: Double-contrast esophagram performed after the uneventful administration of effervescent crystals and thick barium followed by thin barium. Fluoroscopy time 1 minutes 7 seconds. Indication: Dysphagia Comparison: None. Findings: The swallowing mechanism is within normal limits. Postop changes is C4-C7 ACDF no aspiration. Mild tertiary contractions noted within the distal esophagus. A small sliding hiatal hernia is present. No stricture or ulcer. Decreased esophageal motility. Mild spontaneous reflux. Impression: Mild spontaneous reflux and decreased esophageal motility along with a small sliding hiatal hernia and mild distal esophageal reflux esophagitis. Dictated by Aashish Hunt MD @ 08/17/2022 4:57:31 PM (Electronically Signed)
== END 2022-08-17 07:45 | disposition home or self-care (01) ==
LOC: RAD 07:45
PROVIDERS: PCP Internal Medicine; Visit Provider Otolaryngology
DX: R13.10 Dysphagia, unspecified (principal); K21.9 Gastro-esophageal reflux disease without esophagitis; K44.9 Diaphragmatic hernia without obstruction or gangrene
CPT/HCPCS: 74221

== ENCOUNTER 2022-10-23 07:26 | Outpatient (CLI) | payer OTHER, SELFPAY ==
--- NOTE | 2022-10-23 08:15 | CRLHL7_ITS ---
For Patients: As a result of the Century Cures Act, medical imaging exams and procedure reports are released immediately into your electronic medical record. You may view this report before your referring provider. If you have questions, please contact your health care provider. Indication: Left hip pain Procedure : Informed consent was obtained. The site was marked. Time-out was performed. The skin of the left hip was cleansed with ChloraPrep. A sterile drape was placed. 8 cc of 1 percent lidocaine was administered for superficial anesthesia. Subsequently a 22 gauge spinal needle was introduced into the left hip joint under intermittent fluoroscopic guidance. 7 cc 1 percent lidocaine and 2 cc 40 milligram/cc Depo-Medrol then injected into the left hip joint. The needle was removed and hemostasis achieved with direct pressure. A dressing was placed. The patient tolerated the procedure well without immediate complication. Total fluoroscopy time 32 seconds. Impression: Successful fluoroscopically guided left hip injection with 80 milligrams of Depo-Medrol. Dictated by Aashish Hunt MD @ 10/23/2022 9:16:58 AM (Electronically Signed)
== END 2022-10-23 07:27 | disposition home or self-care (01) ==
LOC: RAD 07:27
PROVIDERS: PCP Internal Medicine; Visit Provider Orthopaedic Surgery Sports Medicine
DX: M16.12 Unilateral primary osteoarthritis, left hip (principal)
CPT/HCPCS: 20610; 77002; J1030; Q9966

== ENCOUNTER 2023-01-09 08:55 | Outpatient (CLI) | payer OTHER, SELFPAY | END 2023-01-09 08:56 | disposition home or self-care (01) | PROVIDERS: PCP Internal Medicine; Visit Provider Internal Medicine | DX: Z01.818 Encounter for other preprocedural examination (principal); I10 Essential (primary) hypertension; D64.9 Anemia, unspecified; I11.0 Hypertensive heart disease with heart failure; I50.9 Heart failure, unspecified; J44.9 Chronic obstructive pulmonary disease, unspecified; G47.33 Obstructive sleep apnea (adult) (pediatric); Z99.89 Dependence on other enabling machines and devices; Z79.02 Long term (current) use of antithrombotics/antiplatelets; Z95.828 Presence of other vascular implants and grafts; I71.40 Abdominal aortic aneurysm, without rupture, unspecified; I73.9 Peripheral vascular disease, unspecified | CPT/HCPCS: 80053; 85610 ==

== ENCOUNTER 2023-01-14 09:49 | Outpatient (RCR) | payer OTHER, MEDICAID, SELFPAY ==
--- NOTE | 2023-01-14 13:01 | PT.OPE ---
PT Corrie Outpatient Eval PT [facility] Outpatient Eval Start: 01/14/23 10:44 Freq: Status: Active Protocol: Document 01/14/23 10:58 GINETTE (Rec: 01/14/23 12:52 GINETTE [id number]) E-signed By Jesu Dorman, PT, ATC Physical Therapy Outpatient Evaluation Insurance Information Insurance Name Medicare B Insurance Information/Comments [employer] Medical Diagnosis M16.12 Unilateral primary OA, left hip. Treating Diagnosis L hip pain Referring MD Liz Subjective Subjective Reports a long history of L side hip-groin pain with recent severity increase creating difficulty with self care. Lives alone in the basement of his childrens split-level home. He does drive independently. Scheduled for L hip LOC on 01/21/23. Has questions regarding his outcome and ability to manage for himself. Wondering whether he can stay a few days longer in the hospital. PMHx includes fusion procedures to the distal cervical and mid to lower spine. R RCR, COPD, 6 way heart bypass surgery and gallbladder removal. 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 Balance & Gait Walks with significant limp, shortened L leg stride length and WB'ing time. L hip externally rotated, toes out in stance and walking. Uses can on R side Posture Forward trunk flexion and R lateral trunk lean while standing. Unable to extend knee-hip in supine position. Maintains 30 degree L knee flex Assessment Assessment/Impression Butch is a pleasant 77 year old man who is scheduled for a L LOC on 01/21/23. Because of his living situation and inconsistent help availability , he should be considered for a few extended days of supervised care in the hospital following the procedure. A split-level home, low toilet seat, high bed height and predominantly self care makes him vulnerable to disrupting the internal components and affecting his prison outcome. He has significant pain and contracture entering the procedure so skilled care and PT following is highly advised . His pre-op LOC examination today went moderately well. I think he will struggle with performing the ex.s without assistance as frequent VC'ing was needed when reviewing the program. He did show competence with walker usage. Stairs he shows the capability to climb and descend with the correct sequencing, but did lose balance once during performance. Primary Functional Limitations Walking Standing Self care Transfers Plan of Care Rehabilitation Potential Good Rehabilitation Potential Comments Strongly advise Butch be considered for short term stay and skilled assistance for a few days following procedure. Will speak with hospital PT regarding concerns. Physical Therapy Goals 1.Demonstrate safe and correct walker usage x 100 feet. 2.Able to ascend and descend stairs x 10 using rail and cane for assistance. 3.To show proper technique with HEP phase 1 LOC ex performance Pre-op goals... Post-op goals to be written on day of reevaluation in outpatient PT. Coordination/Communication With Referral Source Frequency/Duration 1 visit prior to LOC 2x per week x 6-12 weeks following procedure. Patient Will Be Discharged From Therapy Independent w/HEP, Independently Progressing Evaluation Billing Untimed Code Treatment Minutes 35 PT Eval No Charge No Complexity Low Certification Information Initial Certification Date 01/14/23 Ending Certification Date 04/16/23 Provider Signature Shows Agreement With POC & Medical Necessity Physician Signature & Date Requested Please Sign/Date Here Physician Comment/Change : Physician NPI Number #
== END 2023-04-03 15:43 | disposition home or self-care (01) ==
PROVIDERS: PCP Internal Medicine; Visit Provider Orthopaedic Surgery Sports Medicine
DX: M16.12 Unilateral primary osteoarthritis, left hip (principal); Z96.642 Presence of left artificial hip joint; M25.552 Pain in left hip; Z51.89 Encounter for other specified aftercare
CPT/HCPCS: 97110; 97116; 97161

== ENCOUNTER 2023-01-21 06:01 | Day surgery (SDC) | payer OTHER, MEDICAID, SELFPAY ==
--- NOTE | 2023-01-14 16:09 | PC.SOCIAL ---
Social work: Received call from ortho clinic requesting social studies department chair contact pt regarding his questions about insurance coverage of short term rehab after LTH scheduled for next week. Pt states he lives alone and things he will need a rehab stay. Pt has [employer] insurance and spoke with them and was promised he had coverage for a rehab stay. Explained to pt about the process for prior authorization and the short list of [employer] contracted prison facilities. Pt states of the contracted list, [facility] [place] or [facility] would be closest to his home in [place]. Pt was appreciative of the information provided. unit control worker will follow up with pt after surgery for discharge planning.
[2023-01-21] VITALS (27 sets, daily range): BP systolic 103–179; BP diastolic 57–110; PULSE 54–114; RESP 12–18; TEMP 35.9–36.9; O2SAT 91–99; BMI 27.1
--- OUTSIDE RECORDS SUMMARY | 2023-01-21 06:04 | XMS_ITS | Continuity of Care Document ---
Author Name Unknown Organization [facility] Address [address] [address] [place] [address] Phone Care Team Providers Care Technical Analyst Name Role Phone Jonas Hubbard MD Unavailable Unavailable Allergies, Adverse Reactions, Alerts Substance Reaction Status Criticality No Known Allergies Active No Inform ation Medications Medication Instructions Dosage Effective Dates (start - stop) Status Comments omeprazole 40 mg capsule,delayed release take 1 capsule by oral route every day before a meal 40 MG - Active acetaminophen 500 mg capsule take 1 capsule by oral route every 6 hours as needed not to exceed 8 capsules per 24hrs 500 MG - Active Pulmicort Flexhaler 90 mcg/actuation breath activated inhale 2 puff by inhalation route every day 180 MCG - Active VITAMIN D3 (unknown strength) Not Available - Active VITAMIN B-12 (unknown strength) take 1 capsule by oral route every day Not Available - Active ipratropium bromide 42 mcg (0.06 %) nasal spray spray 2 spray by intranasal route 3 times every day as needed 2 spray - Active loratadine 10 mg tablet take 1 tablet by oral route every day 10 MG - Active naloxone 0.4 mg/mL injection solution inject 0.4 milliliter by intravenous route over once, may repeat at 2 to 3 minute intervals as needed 0.4 MG - Active Miralax 17 gram/dose oral powder take (17G) by oral route every day mixed with 8 oz. water, juice, soda, coffee or tea - Active melatonin 5 mg tablet x1 a day - Active omeprazole 20 mg tablet,delayed release take 1 capsule by oral route every day 1 capsule - Active Vitamin D3 25 mcg (1,000 unit) tablet take 1 tablet by oral route every day 1 tablet - Active Daliresp 500 mcg tablet take 1 tablet by oral route every day 500 MCG - Active vitamin E 400 unit capsule take 1 capsule by oral route every day 1 capsule - Active methimazole 5 mg tablet take 1 tablet by oral route every day 5 MG - Active rosuvastatin 40 mg tablet take 1 tablet by oral route every day 40 MG - Active Vitamin B-12 1,000 mcg tablet take 1 tablet by oral route every day 1 tablet - Active metoprolol succinate ER 25 mg tablet,extended release 24 hr take 1 tablet by oral route 3 times every day 25 MG - Active losartan 25 mg tablet take 1 tablet by oral route every day 25 MG - Active TYLENOL (unknown strength) take 2 tablet by oral route every 4 hours as needed Not Available - Active oxycodone 5 mg tablet take 1 tablet by oral route every 4 - 6 hours as needed for pain 5 MG - Active CLOTRIMAZOLE (unknown strength) apply by topical route 2 times every day to the affected area(s) as needed Not Available - Active NORCO (unknown strength) take 1 tablet by oral route every 4 - 6 hours as needed for pain Not Available - Active Colcrys 0.6 mg tablet take 1 tablet by oral route 2 times every day 0.6 MG - Active Aspirin Low-Strength 81 mg chewable tablet chew 1 tablet (81MG) by oral route every day - Active nitroglycerin 0.[address] 1 tablet (0.4MG) by sublingual route at the 1st sign of attack; may repeat every 5 min until relief; if pain persists after 3 tablets in 15 min, prompt medical attention is recommended 0.4 MG - Active Flonase 50 mcg/actuation nasal spray,suspension inhale 1 spray (50MCG) by intranasal route every day in each nostril - Active albuterol sulfate 2.5 mg/3 mL (0.083 %) solution for nebulization inhale 3 milliliter (2.5MG) by nebulization route 3 times every day 2.5 MG - Active Spiriva with HandiHaler 18 mcg & inhalation capsules inhale 1 capsule (18MCG) by inhalation route every day - Active Symbicort 160 mcg-4.5 mcg/actuation HFA aerosol inhaler inhale 2 puff by inhalation route every day in the morning and evening 2 puff - Active ipratropium-albutero l 0.5 mg-3 mg(2.5 mg base)/3 mL nebulization soln take one ampule by nebulization every 6 hours as needed - Active Procedures Procedure Date Established Level 3 Colonoscopy Flex; W/remov Les- 21 Ugi Endo; W/remov Tumor/les-sn 21 Level Iv-surg Path Gross/micro 21 New Level 4 or 45-59 min Ugi Endo; W/bx 1/mx Ugi Endo; W/endo Ultrasound Ex 14 Offic/outpt E&m New Mod-hi Routine Serum Collection [id number] Advance Directives Directive Yes / No Effective Date File Name No Information Encounters Encounter Description Practice Location Reason(s) For Visit Diagnoses Date Provider Providers Copied on Encounter [facility], [address] [address], [place], [id number], [place] tel:[phone] [facility] No Information 1 Stevie Mcdaniel. [address], [facility] [address], [facility] [place], [id number] , [place]. tel: [phone] [facility], [address] [address], [place], [id number], [place] tel:[phone] [facility] No Information 1 Stevie Mcdaniel. [address], [place], [place], [id number] , [place]. tel: [phone] Established Level [address] [facility], [address] [address], [place], [place], [id number], [place] tel:[phone] [facility] GI Symptoms or Concerns (chief complaint) Constipation, unspecifiedGastric polyp 1 Stevie Mcdaniel. [address], [place], [place], [address] , [place]. tel: [phone] Referring Provider: Referral Self. [facility], [address] [address], [place], [id number], [place] tel:[phone] [facility] Gastric polypAbnormal weight lossDysphagia, unspecifiedHiatal herniaColorectal polypsDiverticulosi s of colonConstipation, unspecifiedPersonal history of colonic polypsBenign neoplasm of cecumDysphagia, unspecifiedBenign neoplasm of cecum 1 Stevie Mcdaniel. [address], [facility] [address], [place], [place], [id number] , [place]. tel: [phone] Referring Provider: Referral Self. New Level 4 or 45-59 min [facility], [address] [address], [place], [id number], [place] tel:[phone] [facility] GI Symptoms or Concerns (chief complaint) Constipation, unspecified constipation typeWeight lossDysphagia, unspecified typeHx of adenomatous colonic polyps 0 Stevie Mcdaniel. [address], [facility] [address], [place], [place], [id number] , [place]. tel: [phone] Referring Provider: Referral Self. [facility], [address] [address], [place], [place], [address], [place] tel:[phone] [facility] No Information 0 Stevie Mcdaniel. [address], [facility] [address], [place], [place], [id number] , [place]. tel: [phone] [facility], [address] [address], [place], [id number], [place] tel:[phone] [facility] No Information 0 Gary Gracia. [address], [place], [id number] , [place]. tel: [phone] [facility], [address] [address], [place], [id number], [place] tel:[phone] [facility] No Information 4 Ezio Smith. [address], [facility] [address], [place], [id number] , [place]. tel: [phone] Referring Provider: [place], [address], [place], [address]. tel:[phone] Offic/outpt E&m New Mod-hi [facility], [address] [address], [place], [id number], [place] tel:[phone] [facility] Abd Pain GeneralizedConstipa tion UnspecifiedDiarrhea Gastroesophageal Reflux 4 Alicia Chery. [address], [facility] [address], [place], [id number] , [place]. tel: [phone] Referring Provider: [place], [address], [place], [address]. tel:[phone] Family History Family Member Type Diagnosis Age At Onset Sister Problem (finding) Cancer, unknown First degree family history Problem (finding) No history of Cancer, colon Sister Problem (finding) Cancer, basal cell Sister Problem (finding) malignant neop lasm of breast in first degree relative Sister Problem (finding) malignant neoplasm of l lizzette First degree family history Problem (finding) No history of Ulcerative Colitis Daughter Problem (finding) GERD Daughter Problem (finding) irritable bowel syndrom e First degree family history Problem (finding) No history of Crohn's First degree family history Problem (finding) No Family history of No history of Colon Polyps Immunizations Vaccine Date Status Comments influenza, high-dose seasona l, quadrivalent, .7mL dose, preservative free administered Note: [facility] bi-direct ional interface ; Source: Other Registry influenza, high dose seasona l, preservative-free administered Note: [facility] bi-direct ional interface ; Source: Other Registry zoster vaccine recombinant administered N ote: [facility] bi-directional interface ; Source: Other Registry influenza, high dose seasona l, preservative-free administered Note: [facility] bi-direct ional interface ; Source: Other Registry zoster vaccine recombinant administered N ote: [facility] bi-directional interface ; Source: Other Registry influenza, high dose seasona l, preservative-free administered Note: [facility] bi-direct ional interface ; Source: Other Registry influenza, high dose seasona l, preservative-free administered Note: [facility] bi-direct ional interface ; Source: Other Registry Prevnar 13 administered Note: [facility] bi-d irectional interface ; Source: Other Registry tetanus toxoid, reduced diphtheria toxoid, and acellular pertussis vaccine, adsorbed administered Note: [facility] b i-directional interface ; Source: Other Registry influenza, high dose seasona l, preservative-free administered Note: [facility] bi-direct ional interface ; Source: Other Registry Pneumovax 23 administered Note: [facility] bi-d irectional interface ; Source: Other Registry Pneumovax 23 administered Note: [facility] bi-d irectional interface ; Source: Other Registry influenza, high dose seasona l, preservative-free administered Note: [facility] bi-direct ional interface ; Source: Other Registry tetanus toxoid, reduced diphtheria toxoid, and acellular pertussis vaccine, adsorbed administered Note: [facility] b i-directional interface ; Source: Other Registry tetanus and diphtheria toxoi ds, adsorbed, preservative free, for adult use (5 Lf of tetanus toxoid and 2 Lf of diphtheria toxoid) administered Note: [facility] bi-direct ional interface ; Source: Other Registry Influenza, injectable,quadrivalent, preservative free, pediatric administered Note: [facility] bi-directional interface ; Source: Other Registry Pneumovax 23 administered Note: [facility] bi-d irectional interface ; Source: Other Registry Payers Payer name Insurance type Covered republican ID Wei garcia(s) Mark Mayer [id number] Social History Type Description Quantity Date Captured Comments Sex Male Smoking Status No Information Chief Complaint And Reason For Visit No Information Reason For Referral Reason For Referral No Information Plan Of Treatment Date Type Action Status Referral Ordered: follow-up visit 2 Months Appointment date/timeframe: 2 Months ordered Referral Ordered: EGD With Dilation Appointment date/timeframe: 04/05/2020 ordered Referral Ordered: Colonoscopy Appointment date/timeframe: 04/05/2020 ordered History Of Present Illness Encounter Date Complaint History Of Prese nt Illness GI Symptoms or Concerns Butch parra is a pleasant 74-year-old man with a history of previous tobacco use, quit 3 years ago, COPD and sleep apnea, coronary artery disease, thyroiditis and previous adenomatous polyps of the colon, who presents for followup for constipation alternating with diarrhea, abdominal discomfort and weight loss. He was last seen by me on February 17, 2020 for these symptoms. Subsequent to that, we decided to do a colonoscopy and an upper endoscopy, which were completed on April 05, 2020.The upper endoscopy in March showed a medium-sized hiatal hernia and a single large gastric polyp measuring about 10 to 15 mm in diameter, which was consistent with a hyperplastic polyp. This was removed completely with a cold snare. The remainder of the upper endoscopy was normal. Biopsies were negative for H. pylori.The colonoscopy in March was significant for 5 adenomatous polyps, one of which was classified as an advanced adenoma due to the size. He was recommended for re GI Symptoms or Concerns Butch parra is a 74-year-old man with a history of tobacco use which he quit 3 years ago and consequent COPD, also stated history of sleep apnea, some coronary artery disease, thyroiditis and previous adenomatous polyps, who presents at the request of his primary care provider, Dr. Taylor, to discuss progressive weight loss and new constipation symptoms.Butch states that he has lost about 35 pounds over the last year or maybe two. He does still have an appetite, but he feels some of this is decreased appetite related. He also has noticed some constipation for about the last 6 months. He has some discomfort in his lower abdomen as well, which seems to be relieved after bowel movements. However, he still feels that his bowel movements are incomplete and he has a sensation that there is still a stool or pressure in his lower abdomen. His stools are somewhat irregular and hard. He denies any black stool or blood in his stool. He does state that for many years he rosen Functional Status Date Functional Assessmen t No Information Instructions Date Instruction Additional Infor ender Constipation Related to Const ipation, unspecified constipation type Assessments Type Assessment Date No Information Patient Care Teams Name Effective Dates (start - stop) Status Members No Information
--- OUTSIDE RECORDS SUMMARY | 2023-01-21 06:04 | XMS_ITS | Continuity of Care Document ---
Author Name Unknown Organization [facility] Address [address] [place] [address] Phone Care Team Providers Care Cnc Mill And Lathe Operator Name Role Phone Minesh Fonseca Unavailable Unavailable Procedures Procedure Date Office/Outpatient Visit,[place] 2021 Advance Directives Directive Yes / No Effective Date File Name No Information Encounters Encounter Description Practice Location Reason(s) For Visit Diagnoses Date Provider Providers Copied on Encounter Office/Outpat ient Visit,, [facility], [address], [place], [place], [id number], [place] tel:[phone] [facility] Other intervertebral disc degeneration, lumbar region 2 Chavo Edge. [facility], [address], [address], [place], [place], [address] , [place]. tel:[phone] Referring [facility]: [facility] [address] [place] [address], [address]. tel:[phone] Family History Family Member Type Diagnosis Age At Onset No Information Payers Payer name Insurance type Covered democrat ID Authoriza tion(s) [employer] Medicare Gold Choice Sienna MB [id number] Social History Type Description Quantity Date Captured Comments Alcohol Use Details Unknown Caffeine Use Details Unknown Tobacco Use Status No Information Smoking Status Former smoker Non-Smoking Tobacco Use Details : No Details Available : No Details Available Sex Male Vital Signs Date / Time: Height Weight BMI Pulse Rate Blood Pressure Temperature Respiratory Rate Body Surface Area Head Circumference Head Circ. Percentile Wt./Parrish. Percentile BMI percentile Pulse Ox Inhaled Ox 8:08 AM 70.00 in 91.626 kg (202.00 lbs) 28.9 8 kg/m eter (2) Chief Complaint And Reason For Visit No Information Reason For Referral Reason For Referral No Information History Of Present Illness Encounter Date Complaint History Of Prese nt Illness No Information Functional Status Date Functional Assessmen t No Information Instructions Date Instruction Additional Infor mation No Information Assessments Type Assessment Date assessment Other intervertebral disc degene ration, lumbar region Patient Care Teams Name Effective Dates (start - stop) Status Members No Information
--- OUTSIDE RECORDS SUMMARY | 2023-01-21 06:04 | XMS_ITS | Continuity of Care Document ---
Author Name Unknown Organization [facility] Address [facility] [place] [address] Phone Care Team Providers Care Teletypesetter Operator Name Role Phone Santi Rojas MD Unavailable Allergies, Adverse Reactions, Alerts Substance Reaction Status Criticality No Known allergies Medications Medication Instructions Dosage Effective Dates (start - stop) Status Comments bupropion HCl SR 150 mg Tab take 1 tablet (150MG) by oral route every day 150 MG - Active sucralfate 1 gram Tab take 1 tablet (1G) by oral route 4 times every day on an empty stomach 1 hour before meals and at bedtime 1 G - Active Ventolin HFA 90 mcg/Actuation Aerosol Inhaler inhale 2 puff by inhalation route every 4 - 6 hours as needed - Active omeprazole 20 mg Cap, Delayed Release take 1 capsule (20MG) by oral route every day before a meal 20 MG - Active LIPITOR (unknown strength) take 1 tablet by oral route every day Not Available - Active ATENOLOL (unknown strength) take 1 tablet by oral route every day Not Available - Active Procedures Procedure Date UPPER GI ENDOSCOPY/ BX UPPER GI ENDOSCOPY/ BX TISSUE EXAM BY PATHOLOGIST Advance Directives Directive Yes / No Effective Date File Name No Information Encounters Encounter Description Practice Location Reason(s) For Visit Diagnoses Date Provider Providers Copied on Encounter [facility], [address] [place], [place] [address], [place], [id number] tel:[phone] [facility] No Information 3 Bob Hancock. [address] [place] [address], [place], [address]. tel: [phone] [facility], [address] [place], [place] [address], [place], [id number] tel:[phone] [facility] Epigastric Pain (chief complaint)H x H-pylori (chief complaint) Abdominal Pain, EpigastricDyspepsi aChronic Gastritis 1 Bob Hancock. [address] [place] [address], [place], [address]. tel: [phone] [facility], [address] [place] [address] [place], [place], [id number] tel:[phone] [facility] No Information 1 Bob Hancock. [address] [place] [address], [place], [address]. tel: [phone] [facility], [address] [place] [address] [place], [id number] tel:[phone] [facility] No Information 1 Bob Hancock. [address] [place] [address], [place], [address]. tel: [phone] Family History Family Member Type Diagnosis Age At Onset Father Problem (finding) Father Problem (finding) pulmonary emphysema (Ca use Of ) Sister Problem (finding) Lymphoma Payers Payer name Insurance type Covered republican ID Authorracheal garcia(s) Medicare [id number] Social History Type Description Quantity Date Captured [...] mation No Information Assessments Type Assessment Date No Information Patient Care Teams Name Effective Dates (start - stop) Status Members No Information
[2023-01-21] MEDS: ACETAMINOPHEN 500 MG TABLET 1000 MG PO ×3 (06:48→17:06)
[2023-01-21] MEDS: LACTATED RINGERS 1000 ML 1,000 ML 100 ML IV (06:48)
[2023-01-21] MEDS: OXYCODONE (CR) 10 MG TAB.ER.12H PO (06:49)
[2023-01-21] MEDS: SODIUM CHLORIDE 0.9 % (FLUSH) 10 ML SYRINGE IVF ×2 (06:49→19:18)
--- NOTE | 2023-01-21 07:04 | W.PM.H&PU ---
History & Physical Update History & Physical Update H&P Reviewed and patient assessed: No changes noted
--- NOTE | 2023-01-21 07:06 | CRLHL7_ITS ---
For Patients: As a result of the Cures Act, medical imaging exams and procedure reports are released immediately into your electronic medical record. You may view this report before your referring provider. If you have questions, please contact your health care provider. Indication: Post op left LOC Technique: AP hip center pelvis and lateral view left hip Findings/Impression: Hardware from a left total hip arthroplasty is in satisfactory position. Bone alignment is normal. No sign of acute fracture. Postop changes are within normal limits. Dictated by Aashish Hunt MD @ 01/21/2023 11:18:03 AM (Electronically Signed)
--- NOTE | 2023-01-21 07:19 | SUR.PREOP ---
TIME?OUT:?0722 PT/RN/MDA?VERIFICATION?OF?SURGICAL?SITE Left Hip,?PROCEDURE Nerve Block,?AND?CONSENT OBTAINED?PRIOR?TO?INVASIVE?PROCEDURE.
[2023-01-21] MEDS: fentaNYL 100 MCG/2 ML inj IVP (07:23)
[2023-01-21] MEDS: MIDAZOLAM HCL 1 MG/ML inj IVP (07:23)
--- NOTE | 2023-01-21 07:30 | CRLHL7_ITS ---
For Patients: As a result of the Cures Act, medical imaging exams and procedure reports are released immediately into your electronic medical record. You may view this report before your referring provider. If you have questions, please contact your health care provider. Indication: Hip replacement surgery Technique: AP hip fluoroscopic image. Fluoroscopy time 38.9 seconds. Findings/Impression: Hardware from a left total hip arthroplasty is in satisfactory position. Dictated by Aashish Hunt MD @ 01/21/2023 10:58:35 AM (Electronically Signed)
[2023-01-21] MEDS: CEFAZOLIN 2 GM in 0.9 % SODIUM CHLORIDE Mini-bag 100 ML IVPB ×3 (08:10→21:56)
[2023-01-21] MEDS: TRANEXAMIC ACID 100 MG/ML INJ 1000 MG IV (08:18)
--- NOTE | 2023-01-21 10:13 | P.ORPRC_ITS ---
Procedure Note Date of procedure: 01/21/23 Procedure: PREOPERATIVE DIAGNOSIS: 1. Left hip osteoarthritis, severe, primary POSTOPERATIVE DIAGNOSIS: 1. Left hip osteoarthritis, severe, primary PROCEDURE: 1. Left total hip arthroplasty-anterior approach 2. 09648 - intraoperative fluoroscopy up to 1 hour. SURGEON: Jason Adams MD. DECORATING MACHINE TENDER: Trevor Hill; RUPESH Quiros - Of note, a skilled assistant chief train dispatcher was critical for this case to aid in patient positioning, tissue retraction, limb manipulation/positioning, dislocation/relocation, patient safety, and closure. ANESTHESIA: Spinal anesthetic EBL: 450 mL IMPLANTS: DePuy J&J uncemented total hip Sanford cup size 54, hole eliminator, +0 neutral liner Actis stem, high offset, size 9 +1.5 mm ceramic 32 mm head. COMPLICATIONS: None evident INDICATIONS: The patient is a pleasant 77-year-old male who has experienced severe left hip pain and difficulty bearing weight. Workup included x-rays which revealed severe osteoarthrosis in the hip. Given the deformity, the dysf unction, and the pain, as well as the failure of nonoperative management, recommendation was made for surgery. FINDINGS: Full-thickness chondral loss throughout the femoral head and acetabulum. Moderate effusion upon entering the joint. No loose bodies evident. Moderate osteophytes around the femoral head/neck junction and perimeter of the acetabulum. DESCRIPTION OF PROCEDURE: Following a thorough discussion of risks, benefits, and alternatives consent was obtained and the left hip was marked. The patient was brought to the operating room and placed supine on the operating table. In duction of anesthesia was undertaken. 2 g IV Ancef and 1 g tranexamic acid was administered within 1 hr of incision preoperatively. Proper time-out was performed identifying proper patient, site, procedure. The operative extremity was prepped and draped in the appropriate sterile fashion using ChloraPrep after the patient was positioned on the [place] table with head in neutral alignment and all bony prominences well padded. C-arm fluoroscopic imaging was utilized to confirm proper pelvis rotation and position, and to get true AP films of both the contralateral left, and the affected left hip. This is for comparison. A longitudinal incision was made starting approximately 1 cm distal to the ASIS, and 3-4 cm lateral. The incision was extended distally aiming toward the lateral border the patella. Sharp incision through skin and bovie cautery through the subcutaneous tissue allowed identification of the TFL fascia. This was sharply divided, and the fascia bluntly released from the muscle fibers as we dissected medial. Upon coming to the medial border, we were able to retract the TFL laterally, and penetrated the deeper fascia and identify the crossing circumflex vessels. These were ligated/cauterized. The rectus was elevated from the capsule, and retractors placed laterally and medially along the femoral neck to help with visualization of the capsule. We then performed an inverted T capsulotomy. The capsule was tagged for later repair. Retractors were placed inside the capsule. The femoral neck was visualized after releasing medially down to the lesser trochanter, along the saddle laterally, and up onto the acetabulum. The femoral neck cut was made in line with our preoperative templating. The head was removed in a single piece, and sized. We turned our attention to acetabular preparation. Initially, the labrum was resected from around the perimeter, the pulvinar was excised, allowing us to visualize the false wall. We started the reaming with a 43 mm reamer. This was medialized down to the true wall. We then enlarged our reamers sequentially up to one size less than the selected cup size. We trialed at the same size and found it to have an excellent fit. The selected cup was then opened, inserted, and impacted in line with the goal of 40-45? of abduction, and 20-25? of anteversion. This was confirmed on C-arm fluoroscopic imaging to be in the appropriate/goal position. Once the cup was placed we placed a hole eliminator and a liner consistent with preop planning. Attention was turned to the femoral preparation. The limb was extended, ex ternally rotated, and adducted. The posteromedial capsule was released, as retractors were placed allowing excellent access to the proximal femur. Initially a box lidder was followed by canal finder followed by various broaches. We broached sequentially up to size noted above, found it to have excellent rotational control, and trialing various heads and necks, revealed that appropriate neck offset, and the above noted head size provided the greatest stability, and anabaptist of length, and offset. C-arm fluoroscopic imaging confirmed position of the stem, as well as leg lengths, which were compared with the pre procedure all fluoroscopic images. Trial implants were removed, the real femoral stem inserted, as was the ceramic head. After reducing, the leg was placed through range of motion and stability was confirmed anterior, posterior, and lateral. A 3 min Betadine soak was then performed, and thorough irrigation with normal saline followed. Closure of the capsule was performed with #1 PDS. Bleeding was confirmed to be controlled at this stage, and the TFL fascia was closed with #0 strata fix. Subcutaneous, and subcuticular closure was performed with 2-0 Vicryl and 4-0 Monocryl, respectively. Dressings were applied, and the patient was awoken from anesthesia and transferred the PACU in stable condition. A skilled assistant chief train dispatcher was critical for this case to aid in patient positioning, tissue retraction, proximal femur exposure, limb manipulation/positioning, dislocation/relocation, patient safety, and closure. PLAN: 1. Weight bear as tolerated operative extremity. 2. 23 hr perioperative antibiotics. 3. Ice. 4. PT/OT consults for ambulation assistance/mobility education. 5. Social work consult for discharge planning. 6. DVT prophylaxis with at [facility], Jared [place], and Xarelbuddy x5 days followed by plavix/aspirin for a total of 1 month..
--- NOTE | 2023-01-21 10:36 | P.ANES_ITS ---
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
--- NOTE | 2023-01-21 11:00 | W.ANESCHARGE ---
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
[2023-01-21] MEDS: fentaNYL 100 MCG/2 ML inj 50 MCG IVP ×2 (11:07→11:13)
--- NOTE | 2023-01-21 11:14 | P.NB_ITS ---
Nerve Block Nerve Block Time Seen by Provider: 07:27 Date Seen: 01/21/23 Type of block requested by surgeon for post-operative analgesia: SHELBIE/LFCN Side: left Time out performed: Yes Verification of patient name: Yes Verification of date of : Yes Site marking: site marked Name of person performing procedure: Matt Continuous monitoring Was continuous monitoring of O2 sat, B/P, color television console monitor, recorded every 15 minutes?: Yes Procedure Checklist: sterile prep, needles and gloves Ultrasound guided. Images saved: Yes Medications given in 5ml increments after negative aspiration: Ropivicaine %: 0.5 mL: 30 Needle gauge: 20 Decadron (mg): 10 Precedex (mcg): 25 Patient tolerated procedure well: Yes Additional comments: Needle noted below psoas tendon needle noted adjacent to LFCN Block Charges Block Charge (with Pro Fee): Other Periph Nerve Block Use of Ultrasound Machine for Block: Yes- US Guidance/pain block
--- NOTE | 2023-01-21 11:14 | W.ANESCHARGE ---
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
[2023-01-21] MEDS: OXYCODONE 5 MG TABLET PO ×3 (12:35→21:46)
--- NOTE | 2023-01-21 16:13 | PC.SOCIAL ---
Discharge planning- Pt is requesting SNF and would like placement [facility]. [facility] and 2. [facility]. 1. [facility]- Phone call to Nela in admissions at [phone]. There are no openings. 2. [facility]- Phone call to Cathy in admissions at [phone]. Left voicemail inquiring on bed availability. Faxed referral to [phone]. Social work will follow up as needed.
--- NOTE | 2023-01-21 18:25 | P.IMCN_ITS ---
Date of Consult Patient: [facility] Patient Consult date: 01/21/23 Requesting Physician: Orthopedics Primary Care Provider: Yordy Morin MD Consult Narrative Narrative: Butch Nieves III is a 77 year old male Admitted to the hospital for left total hip arthroplasty. Procedures performed by Dr. Adams. No operative complications. He requests consultation for management of medical problems. Patient reports he has otherwise been generally doing well. No other significant new medical problem or illness. He does have a history of heart disease including coronary artery disease, heart failure, aortic aneurysm repair. he has had no recent problems. He has COPD. He has had previous surgeries without significant operative complications, adverse reaction to anesthesia, bleeding or clotting disorders. Review of Systems Narrative: He reports he has been failing well recently. No recent illness or injury. Has a tendency towards constipation with chronic opioid use [facility] Medical History (Updated 01/21/23 @ 18:37 by Nikolay Alvarez MD) TMJ (temporomandibular joint syndrome) ?M26.609 - Unspecified temporomandibular joint disorder, unspecified side (ICD-10) Lumbar degenerative disc disease ?M51.36 - Other intervertebral disc degeneration, lumbar region (ICD-10) Low back pain ?M54.50 - Low back pain, unspecified (ICD-10) COPD (chronic obstructive pulmonary disease) ?J44.9 - Chronic obstructive pulmonary disease, unspecified (ICD-10) Chronic low back pain ?M54.50 - Low back pain, unspecified (ICD-10) ?G89.29 - Other chronic pain (ICD-10) Right shoulder pain ?M25.511 - Pain in right shoulder (ICD-10) Lesion of right external ear ?H61.91 - Disorder of right external ear, unspecified (ICD-10) Thrush, oral ?B37.0 - Candidal stomatitis (ICD-10) Insomnia ?G47.00 - Insomnia, unspecified (ICD-10) Anemia ?D64.9 - Anemia, unspecified (ICD-10) Gout ?M10.9 - Gout, unspecified (ICD-10) Angina at rest ?I20.8 - Other forms of angina pectoris (ICD-10) Hypertension ?I10 - Essential (primary) hypertension (ICD-10) Seasonal allergic rhinitis ?J30.2 - Other seasonal allergic rhinitis (ICD-10) Peripheral vascular disease ?I73.9 - Peripheral vascular disease, unspecified (ICD-10) Obstructive sleep apnea treated with continuous positive airway pressure (CPAP) ?G47.33 - Obstructive sleep apnea (adult) (pediatric) (ICD-10) ?Z99.89 - Dependence on other enabling machines and devices (ICD-10) Monoclonal gammopathy ?D47.2 - Monoclonal gammopathy (ICD-10) Hyperlipidemia ?E78.5 - Hyperlipidemia, unspecified (ICD-10) History of malignant neoplasm of skin ?Z85.828 - Personal history of other malignant neoplasm of skin (ICD-10) History of depression ?Z86.59 - Personal history of other mental and behavioral disorders (ICD-10) History of calcium pyrophosphate deposition disease (CPPD) ?Z87.39 - Personal history of other diseases of the musculoskeletal system and connective tissue (ICD-10) History of adenomatous polyp of colon (02/12/18) ?Z86.010 - Personal history of colonic polyps (ICD-10) Gastroesophageal reflux disease ?K21.9 - Gastro-esophageal reflux disease without esophagitis (ICD-10) Enlarged prostate ?N40.0 - Benign prostatic hyperplasia without lower urinary tract symptoms (ICD-10) Coronary artery disease ?I25.10 - Atherosclerotic heart disease of ho-chunk coronary artery without angina pectoris (ICD-10) Congestive heart failure ?I50.9 - Heart failure, unspecified (ICD-10) Chronic, continuous use of opioids ?F11.90 - Opioid use, unspecified, uncomplicated (ICD-10) Chronic right shoulder pain (2018) ?M25.511 - Pain in right shoulder (ICD-10) ?G89.29 - Other chronic pain (ICD-10) Chronic pancreatitis ?K86.1 - Other chronic pancreatitis (ICD-10) Chronic obstructive pulmonary disease ?J44.9 - Chronic obstructive pulmonary disease, unspecified (ICD-10) Chronic neck pain ?M54.2 - Cervicalgia (ICD-10) ?G89.29 - Other chronic pain (ICD-10) Carpal tunnel syndrome of right wrist ?G56.01 - Carpal tunnel syndrome, right upper limb (ICD-10) Aortic aneurysm ?I71.9 - Aortic aneurysm of unspecified site, without rupture (ICD-10) Hyperthyroidism ?E05.90 - Thyrotoxicosis, unspecified without thyrotoxic crisis or storm (ICD-10) Surgical History H/O excision of ganglion cyst (04/25/22) ?Z98.890 - Other specified postprocedural states (ICD-10) History of carpal tunnel surgery of left wrist (04/25/22) ?Z98.890 - Other specified postprocedural states (ICD-10) Status post coronary angiogram ?Z98.890 - Other specified postprocedural states (ICD-10) History of carpal tunnel surgery of right wrist (11/30/20) ?Z98.890 - Other specified postprocedural states (ICD-10) S/P cubital tunnel release (11/30/20) ?Z98.890 - Other specified postprocedural states (ICD-10) Status post six vessel coronary artery bypass graft (1996) ?Z95.1 - Presence of aortocoronary bypass graft (ICD-10) History of umbilical hernia repair (04/16/13) ?Z98.890 - Other specified postprocedural states (ICD-10) ?Z87.19 - Personal history of other diseases of the digestive system (ICD-10) History of spinal surgery ?Z98.890 - Other specified postprocedural states (ICD-10) History of rotator cuff surgery (2007) ?Z98.890 - Other specified postprocedural states (ICD-10) History of operative procedure on hip (04/01/18) ?Z98.890 - Other specified postprocedural states (ICD-10) History of endarterectomy (2012) ?Z98.890 - Other specified postprocedural states (ICD-10) History of colonoscopy with polypectomy ?Z98.890 - Other specified postprocedural states (ICD-10) ?Z86.010 - Personal history of colonic polyps (ICD-10) History of cholecystectomy ?Z90.49 - Acquired absence of other specified parts of digestive tract (ICD- 10) History of carpal tunnel surgery of left wrist (2007) ?Z98.890 - Other specified postprocedural states (ICD-10) History of appendectomy ?Z90.49 - Acquired absence of other specified parts of digestive tract (ICD- 10) History of aortic aneurysm repair (2012) ?Z98.890 - Other specified postprocedural states (ICD-10) ?Z86.79 - Personal history of other diseases of the circulatory system (ICD- 10) Family History Father Asthma Sister Asthma Breast cancer Lung cancer Mother Dementia Rheumatoid arthritis Social History (Updated 01/21/23 @ 18:32 by Nikolay Alvarez MD) Narrative: , five daughters, does not use illicit drugs, nonsmoker. Occasional alcohol. History of some cannabis use but not recently and not regularly. Lives in [facility]. Is [facility] [place] [facility] following this surgery. What is your current living situation?: I presently have a place to live In the past 12 months, utilities in danger of being shut off: no In past 12 months, lack of transportation kept you from medical appts, meetings, work, or getting things needed for daily living: no In the past 12 mos, have been you worried that your food would run out before you had money to buy more?: never true In the past 12 mos, the food you bought just didn't last and you didn't have money to buy more?: never true Smoking Status: Former smoker Do you use any of these nicotine containing products: None Second hand tobacco smoke exposure: No How often do you have a drink containing alcohol: monthly or less How many standard drinks containing alcohol do you have on a typical day: 3 or 4 How often do you have six or more drinks on one occasion: Less than monthly AUDIT-C Alcohol total score: 3 Non-prescribed substance use: denies use Non-prescribed substance use details: was trying THC gummies but not effective and hasn't had them in a while. Caffeine: No How often does anyone, including family, friends and others, physically hurt you : never How often does anyone, including family, friends and others, insult or talk down to you: never How often does anyone, including family, friends and others, threaten you with harm: never How often does anyone, including family, friends and others, scream or curse at you: never Little interest or pleasure in doing things: more than half the days Feeling down, depressed, or hopeless: several days service: No Meds Home Medications and Allergies Home Medications Medication Instructions Recorded Confirmed Type atenolol 25 mg tablet 25 mg PO DAILY 10/11/21 01/21/23 History metoprolol succinate 100 mg 100 mg PO DAILY 10/11/21 01/21/23 History tablet,extended release 24 hr acetaminophen 500 mg tablet 500 - 1,000 mg PO Q6H PRN 11/09/21 01/21/23 History fexofenadine 180 mg tablet 180 mg PO DAILY 11/10/21 01/21/23 History (Joanna Allergy) melatonin 5 mg capsule 10 mg PO HS PRN 11/10/21 01/21/23 History cpap 01/17/22 01/09/23 History clopidogrel 75 mg tablet 75 mg PO DAILY 04/18/22 01/21/23 History famotidine 20 mg tablet 20 mg PO DAILY 01/09/23 01/21/23 History cholecalciferol (vitamin D3) 25 50 mcg PO DAILY 01/21/23 01/21/23 History mcg (1,000 unit) chewable tablet (Vitamin D3) cyanocobalamin (vitamin B-12) 1,000 mcg PO DAILY Anemia 01/21/23 01/21/23 History 1,000 mcg tablet losartan 25 mg tablet 25 mg PO DAILY Hypertension 01/21/23 01/21/23 History roflumilast 500 mcg tablet 500 mcg PO DAILY Anemia 01/21/23 01/21/23 History (Daliresp) tiotropium bromide 18 mcg capsule 1 cap inhalation DAILY COPD 01/21/23 01/21/23 History with inhalation device (Spiriva with HandiHaler) Allergies Allergy/AdvReac Type Severity Reaction Status Date / Time bupropion Allergy Unknown tinnitus Verified 01/21/23 06:25 isosorbide Allergy Unknown Headache Verified 01/21/23 06:25 spironolactone Allergy Unknown gynecomasti Verified 01/21/23 06:25 a topiramate Allergy Unknown doses Verified 01/21/23 06:25 higher than 50 daily not tolerated venlafaxine Allergy Unknown Anxiety Verified 01/21/23 06:25 Exam Narrative: Exam Narrative: He is alert and appears in no distress. He gives his own history with good detail. Oropharynx is normal. Neck is supple without mass or adenopathy. Respirations are clear to auscultation. Cardiovascular: S1, S2, 1/6 systolic ejection murmur heard best at the right upper sternal border. Regular rate and rhythm. Abdomen is soft without tenderness or mass. Extremities without edema. Intact pedal pulses. He has little weak in dorsiflexion of the left foot and ankle. Const: Vital Signs, click to edit/add: Vital Signs - 24 hr 01/21/23 06:32 01/21/23 07:22 01/21/23 07:27 Temperature 97.8 F Pulse Rate 62 60 60 Pulse Rate [Pulse Oximeter] Respiratory Rate 18 18 18 Blood Pressure 170/80 H 167/75 H 179/85 H Blood Pressure [Le ft Arm] Blood Pressure [Ri ght Arm] Pulse Oximetry 95 99 99 Oxygen Delivery Me thod Room Air Nasal Cannula Nasal Cannula Oxygen Flow Rate 2 2 01/21/23 07:33 01/21/23 10:51 01/21/23 10:55 Temperature 97.2 F L Pulse Rate 60 54 L 56 L Pulse Rate [Pulse Oximeter] Respiratory Rate 18 12 14 Blood Pressure 143/74 H 124/110 H 111/57 L Blood Pressure [Le ft Arm] Blood Pressure [Ri ght Arm] Pulse Oximetry 99 95 96 Oxygen Delivery Me thod Nasal Cannula Room Air Room Air Oxygen Flow Rate 2 01/21/23 11:00 01/21/23 11:05 01/21/23 11:10 Temperature 97.3 F L Pulse Rate 55 L 56 L 56 L Pulse Rate [Pulse Oximeter] Respiratory Rate 12 14 12 Blood Pressure 126/74 118/66 131/66 Blood Pressure [Le ft Arm] Blood Pressure [Ri ght Arm] Pulse Oximetry 96 94 93 Oxygen Delivery Me thod Room Air Room Air Room Air Oxygen Flow Rate 01/21/23 11:15 01/21/23 11:20 01/21/23 11:25 Temperature 97.3 F L Pulse Rate 57 L 56 L 55 L Pulse Rate [Pulse Oximeter] Respiratory Rate 14 14 12 Blood Pressure 125/67 121/67 122/69 Blood Pressure [Le ft Arm] Blood Pressure [Ri ght Arm] Pulse Oximetry 94 94 93 Oxygen Delivery Me thod Room Air Room Air Room Air Oxygen Flow Rate 01/21/23 11:29 01/21/23 11:35 01/21/23 12:00 Temperature 97.4 F L 96.7 F L 97.1 F L Pulse Rate 55 L 55 L Pulse Rate [Pulse Oximeter] 58 L Respiratory Rate 12 18 18 Blood Pressure 121/72 Blood Pressure [Le ft Arm] 134/70 Blood Pressure [Ri ght Arm] 119/79 Pulse Oximetry 94 91 Oxygen Delivery Me thod Room Air Room Air Room Air Oxygen Flow Rate 01/21/23 12:15 01/21/23 12:30 01/21/23 12:45 Temperature 96.9 F L 97 F L 97 F L Pulse Rate Pulse Rate [Pulse Oximeter] 60 70 114 H Respiratory Rate 18 16 16 Blood Pressure Blood Pressure [Le ft Arm] 117/79 119/75 Blood Pressure [Ri ght Arm] 128/89 Pulse Oximetry 92 99 92 Oxygen Delivery Me thod Room Air Room Air Room Air Oxygen Flow Rate 01/21/23 13:00 01/21/23 13:30 01/21/23 14:00 Temperature 97 F L Pulse Rate Pulse Rate [Pulse Oximeter] 62 69 69 Respiratory Rate 16 16 Blood Pressure Blood Pressure [Le ft Arm] 119/68 113/99 H 130/57 L Blood Pressure [Ri ght Arm] Pulse Oximetry 95 93 Oxygen Delivery Me thod Room Air Room Air Oxygen Flow Rate 01/21/23 15:00 01/21/23 15:00 01/21/23 16:00 Temperature Pulse Rate Pulse Rate [Pulse Oximeter] 61 77 Respiratory Rate 16 Blood Pressure Blood Pressure [Le ft Arm] Blood Pressure [Ri ght Arm] 115/70 108/67 Pulse Oximetry 97 Oxygen Delivery Me thod Room Air Oxygen Flow Rate 01/21/23 17:00 Temperature 98.5 F Pulse Rate Pulse Rate [Pulse Oximeter] 80 Respiratory Rate 16 Blood Pressure Blood Pressure [Le ft Arm] Blood Pressure [Ri ght Arm] 103/66 Pulse Oximetry 96 Oxygen Delivery Me thod Room Air Oxygen Flow Rate Assessment and Plan Assessment and plan (1) Osteoarthritis of left hip: Problem comment: Status post left hip arthroplasty 01/21/[address] Adams. Status: Chronic (2) COPD (chronic obstructive pulmonary disease): Problem comment: currently appears stable Status: Chronic (3) Coronary artery disease: Problem comment: no current symptoms Status: Chronic (4) Obstructive sleep apnea treated with continuous positive airway pressure (CPAP): Problem comment: Use home CPAP Status: Chronic (5) Chronic, continuous use of opioids: Problem comment: will likely need more than usual doses of opioids and close outpatient follow- up for pain management Status: Chronic Plan patient's med the hospital for care and recovery after left hip arthroplasty. Will continue Home medications except blood pressure medicines which will be started as blood pressure requires. anticipate possible need for [place] [facility] for rehab prior to returning home. total time spent today is 45 minutes, 30 minutes in coordination of care and discussing with patient and other providers ongoing evaluation management of multiple medical problems
--- NOTE | 2023-01-21 19:16 | PC.NURSE ---
Nursing Care Hours: [id number] Pt this shift arrived from PACU alert and oriented. Post op vitals remained stable, completed at 1700. Pt eating, drinking, and voiding. Ax1 with walker and gait belt to bathroom. Encouraged to use toilet vs urinal to keep active. SL after fluid bag finished. Denies nausea and itching. Bandage CDI, pedal pulses present bilat.
[2023-01-21] MEDS: HYDROmorphone 0.5 mg/0.5 ml inj IVP (19:17)
[2023-01-21] MEDS: FLUTICASONE PROPIONATE NASAL 2 SPRAY NOSTRIL-B (20:17)
[2023-01-21] MEDS: hydrOXYzine pamoate 25 MG CAPSULE PO (21:46)
[2023-01-22 00:53] VITALS: TEMP 36.9
[2023-01-22] MEDS: ACETAMINOPHEN 500 MG TABLET 1000 MG PO (00:53)
[2023-01-22] MEDS: MELATONIN 3 MG TABLET 9 MG PO (00:55)
[2023-01-22] MEDS: OXYCODONE 5 MG TABLET PO ×4 (00:55→14:44)
[2023-01-22 02:41] VITALS: BP 117/73; PULSE 76; RESP 18; TEMP 36.6; O2SAT 92
[2023-01-22] MEDS: hydrOXYzine pamoate 25 MG CAPSULE PO ×2 (04:04→09:24)
--- NOTE | 2023-01-22 06:19 | PC.NURSE ---
Pt rested well this night. allowing Home Meds in Bin. Pt up to BR and voiding. Pain controlled. No n/v. VS unremarkable.
[2023-01-22 06:52] LABS: Hematocrit 34.8 % (37.0-53.0); Hemoglobin* 11.4 gm/dL (13.5-17.5); Immature Granulocytes Pct Auto 0.2 %; Lymphocytes Percent Auto 9.2 % (20-44); Mean Corpuscular HGB Conc 33 gm/dL (32-36); Mean Corpuscular Hemoglobin 29 pg (26-34); Mean Corpuscular Volume 87 fL (80-100); Monocytes Percent Auto 7.8 % (0.0-11.0); Neutrophils Percent Auto 82.8 % (42.0-72.0); Platelet Count* 199 K/uL (140-440); RDW Coefficient of Variation % 13.1 % (11.5-15.5); Red Blood Count 3.99 m/uL (4.30-5.90); White Blood Count* 14.07 K/uL (4.50-11.00)
[2023-01-22 06:55] LABS: Slide Review Reflex No
[2023-01-22 07:12] LABS: Sodium* 136 mmol/L (135-149)
[2023-01-22 07:13] LABS: Potassium* 4.4 mmol/L (3.6-5.1)
[2023-01-22 07:16] LABS: Blood Urea Nitrogen* 16 mg/dL (7-30); Creatinine* 0.8 mg/dL (0.5-1.5); Est. Creatinine Clearance* 71.02; Estimated Glomerular Filt Rate 92 ml/min
[2023-01-22 09:00] VITALS: BP 123/71; PULSE 78; RESP 18; O2SAT 92
[2023-01-22] MEDS: ROSUVASTATIN CALCIUM 10 MG TABLET 40 MG PO (09:07)
[2023-01-22] MEDS: METOPROLOL SUCCINATE (XL) 100 MG TAB PO (09:07)
[2023-01-22] MEDS: CYANOCOBALAMIN (VITAMIN B-12) 500 MCG TABLET 1000 MCG PO (09:08)
[2023-01-22] MEDS: OMEPRAZOLE 20 MG CAPSULE DR PO (09:08)
[2023-01-22] MEDS: allopurinoL 100 MG TABLET PO (09:08)
[2023-01-22] MEDS: LOSARTAN POTASSIUM 50 MG TABLET 25 MG PO (09:08)
[2023-01-22] MEDS: FAMOTIDINE 20 MG TABLET PO (09:09)
[2023-01-22] MEDS: SENNOSIDES 1 TAB TABLET 2 TAB PO (09:09)
[2023-01-22] MEDS: RIVAROXABAN 10 MG TABLET PO (09:09)
[2023-01-22] MEDS: FLUTICASONE PROPIONATE NASAL 2 SPRAY NOSTRIL-B (09:10)
[2023-01-22] MEDS: FEXOFENADINE 180 MG TABLET PO (09:10)
[2023-01-22] MEDS: ACETAMINOPHEN 500 MG TABLET PO (09:24)
[2023-01-22] MEDS: ALBUTEROL INHALER 2 PUFF IH (09:57)
--- NOTE | 2023-01-22 10:36 | PM.ORPN ---
Subjective Subjective Date Seen: 01/22/23 Principal diagnosis: Status postop day 1, left total hip arthroplasty - anterior approach Interval history: Patient reports doing okay. Pain about the hip as well as the ipsilateral heel/ankle. Ambulating to the bathroom was difficult. No acute events over night. Pain managed with scheduled and PRN medications, ice. Patient has been on chronic oxycodone 5 mg a.m., 5 mg p.m. for the past 20 years. He reports that oxycodone does not really help his pain. Notes he was given medication last night at 25 mg which he that was helpful. I believe this is Vistaril. DVT prophylaxis: Chronically on Plavix, also now on Xarelto, bilateral knee high Jared stockings, SCDs, walking. Denies fevers, chills, aches, N/V, CP, SOB/NUR, or lightheadedness. Ortho Exam Narrative Exam Narrative: -Patient appears comfortable in bed; no apparent acute distress -Alert and oriented times 3 -Operative hip mildly swollen; soft tissues supple; no obvious erythema. Warmth appropriate -Surgical dressing clean, dry, intact; no obvious drainage, no erythematous streaking peripheral to the bandage -Bilateral calves soft and supple; no significant swelling, edema, tenderness, erythema, discoloration, warmth, or palpable cords -2+ DP/PT pulses, intact dermatomes and myotomes distally (5/5 strength). No numbness about the lateral femoral cutaneous nerve distribution. Mild discomfort the medial ankle, medial deltoid region as well as mild discomfort with calcaneus palpation; no erythema, ecchymosis, or gross swelling Const Vital Signs, click to edit/add: Vital Signs - 24 hr 01/21/23 10:51 01/21/23 10:55 01/21/23 11:00 Temperature 97.2 F L Pulse Rate 54 L 56 L 55 L Pulse Rate [Pulse Oximeter] Respiratory Rate 12 14 12 Blood Pressure 124/110 H 111/57 L 126/74 Blood Pressure [Left Arm] Blood Pressure [Right Arm] Pulse Oximetry 95 96 96 Oxygen Delivery Method Room Air Room Air Room Air Oxygen Flow Rate 01/21/23 11:05 01/21/23 11:10 01/21/23 11:15 Temperature 97.3 F L Pulse Rate 56 L 56 L 57 L Pulse Rate [Pulse Oximeter] Respiratory Rate 14 12 14 Blood Pressure 118/66 131/66 125/67 Blood Pressure [Left Arm] Blood Pressure [Right Arm] Pulse Oximetry 94 93 94 Oxygen Delivery Method Room Air Room Air Room Air Oxygen Flow Rate 01/21/23 11:20 01/21/23 11:25 01/21/23 11:29 Temperature 97.3 F L 97.4 F L Pulse Rate 56 L 55 L 55 L Pulse Rate [Pulse Oximeter] Respiratory Rate 14 12 12 Blood Pressure 121/67 122/69 121/72 Blood Pressure [Left Arm] Blood Pressure [Right Arm] Pulse Oximetry 94 93 94 Oxygen Delivery Method Room Air Room Air Room Air Oxygen Flow Rate 01/21/23 11:35 01/21/23 12:00 01/21/23 12:15 Temperature 96.7 F L 97.1 F L 96.9 F L Pulse Rate 55 L Pulse Rate [Pulse Oximeter] 58 L 60 Respiratory Rate 18 18 18 Blood Pressure Blood Pressure [Left Arm] 134/70 Blood Pressure [Right Arm] 119/79 128/89 Pulse Oximetry 91 92 Oxygen Delivery Method Room Air Room Air Room Air Oxygen Flow Rate 01/21/23 12:30 01/21/23 12:45 01/21/23 13:00 Temperature 97 F L 97 F L Pulse Rate Pulse Rate [Pulse Oximeter] 70 114 H 62 Respiratory Rate 16 16 Blood Pressure Blood Pressure [Left Arm] 117/79 119/75 119/68 Blood Pressure [Right Arm] Pulse Oximetry 99 92 Oxygen Delivery Method Room Air Room Air Oxygen Flow Rate 01/21/23 13:30 01/21/23 14:00 01/21/23 15:00 Temperature 97 F L Pulse Rate Pulse Rate [Pulse Oximeter] 69 69 Respiratory Rate 16 16 16 Blood Pressure Blood Pressure [Left Arm] 113/99 H 130/57 L Blood Pressure [Right Arm] Pulse Oximetry 95 93 Oxygen Delivery Method Room Air Room Air Oxygen Flow Rate 01/21/23 15:00 01/21/23 16:00 01/21/23 17:00 Temperature 98.5 F Pulse Rate Pulse Rate [Pulse Oximeter] 61 77 80 Respiratory Rate 16 Blood Pressure Blood Pressure [Left Arm] Blood Pressure [Right Arm] 115/70 108/67 103/66 Pulse Oximetry 97 96 Oxygen Delivery Method Room Air Room Air Oxygen Flow Rate 01/21/23 19:21 01/21/23 22:00 01/21/23 22:34 Temperature 98.5 F 98.5 F Pulse Rate Pulse Rate [Pulse Oximeter] 83 82 82 Respiratory Rate 16 16 16 Blood Pressure Blood Pressure [Left Arm] Blood Pressure [Right Arm] 128/71 133/64 Pulse Oximetry 93 93 Oxygen Delivery Method Room Air Room Air Oxygen Flow Rate 0 0 01/22/23 00:53 01/22/23 02:41 01/22/23 09:00 Temperature 98.5 F 98 F Pulse Rate Pulse Rate [Pulse Oximeter] 76 78 Respiratory Rate 18 18 Blood Pressure Blood Pressure [Left Arm] Blood Pressure [Right Arm] 117/73 123/71 Pulse Oximetry 92 92 Oxygen Delivery Method Room Air Oxygen Flow Rate Assessment and Plan Assessment and plan (1) Osteoarthritis of left hip: Problem details: Status post left hip arthroplasty 01/21/[address] Adams. Status: Chronic (2) Chronic low back pain: Status: Chronic Plan - Complete 23 hour perioperative antibiotics. - PT/OT consult for education and assistance. - Social work consult for discharge planning - plan for SNF/rehab (awaiting bed availability) - Prescribed analgesics as needed - understand the patient's pain will be difficult to manage at times due to his tolerance to oxycodone. Will add Vistaril for discharge. - DVT prophylaxis: 5 days rivaroxaban, continued Plavix and bilateral knee high Jared Hose stockings and SCDs. Continuing Plavix due to his multiple coronary stents. - Anticipation is for discharge to SNF once bed is available and if the patient remains medically stable, pain is controlled, and they are safe with mobilization.
[2023-01-22 11:00] VITALS: BP 91/48; PULSE 72; RESP 16; TEMP 37.2; O2SAT 93
--- NOTE | 2023-01-22 11:35 | PC.SOCIAL ---
Addendum entered by OUSMANE Gongora 01/22/23 13:23: Received a phone call from Cathy in admissions at [facility] at [phone]. Cathy informs that she obtained prior authorization from pt's insurance and can admit patient today at 4:00 pm. Met with pt and pt's significant other and provided update. Pt's daughter will provide transportation and will be to [facility] at 3:00 pm at the Emergency Room entrance. Provided update to charge nurse, MD, and pt's assigned nurse. Completed preadmission screening. Confirmation #[id number]. Social work will follow up as needed. Original Note: Discharge planning- Received a voicemail from Cathy at [facility] at [phone]. [facility] has accepted pt for admission in a shared room. Met with pt to provide information. Pt would like to go to [facility] and is fine with sharing a room. Informed pt that [facility] will have to obtain prior authorization from his insurance before he could go there. This worker will keep pt updated. Phone call to Cathy at [facility] and informed that pt would like to accept the room. Cathy will start the process to obtain prior authorization from pt's insurance and will keep this worker updated. Provided update to charge nurse and MD. Social work will follow up as needed.
[2023-01-22 11:42] VITALS: BP 83/47
[2023-01-22 12:01] VITALS: BP 96/51; PULSE 68; RESP 16; O2SAT 90
[2023-01-22] MEDS: CLOPIDOGREL 75 MG TABLET PO (14:53)
--- NOTE | 2023-01-22 15:51 | PC.NURSE ---
Discharge Note: The patient discharged to [facility] @ [id number] all belongings were sent with the patient... He was wheeled out anf picked up by his daughter to be taken there. IV was removed. All information for the care facility was sent with the patient and instructed to be given to them upon arrival. Pain medication given prior to discharge oxy 5mg for moderate- severe pain rating it at a 7/10. KENROY JUNG RN
--- NOTE | 2023-01-22 15:58 | PM.IMPN1 ---
Progress Note: A&P Assessment and plan (1) Osteoarthritis of left hip: Problem details: Status post left hip arthroplasty 01/21/[address] Adams. POD#1: Postoperative management per Orthopedic team. Agree with SNF placement. Recommend resuming home medications upon discharge Status: Chronic Time Spent With Patient Total time spent: Total time spent caring for the patient today was 30 minutes. This includes time spent for the visit reviewing the chart, time spent during the visit, time spent after the visit and documentation and planning in coordination of care. Subjective Date Seen: 01/22/23 Interval history: Patient seen with at bedside. Pain adequately managed. History of chronic narcotic use, > 20 years. No postoperative concerns. Exam Narrative: Exam Narrative: PHYSICAL EXAM General: Pleasant, conversant, NAD Cardiovascular: RRR Pulmonary: No dyspnea Neurological: Alert, answering questions appropriately Const: Vital Signs, click to edit/add: Vital Signs - 24 hr 01/21/23 16:00 01/21/23 17:00 01/21/23 19:21 Temperature 98.5 F 98.5 F Pulse Rate [Pulse Oximeter] 77 80 83 Respiratory Rate 16 16 Blood Pressure [Ri ght Arm] 108/67 103/66 128/71 Pulse Oximetry 96 93 Oxygen Delivery Me thod Room Air Room Air Oxygen Flow Rate 0 01/21/23 22:00 01/21/23 22:34 01/22/23 00:53 Temperature 98.5 F 98.5 F Pulse Rate [Pulse Oximeter] 82 82 Respiratory Rate 16 16 Blood Pressure [Ri ght Arm] 133/64 Pulse Oximetry 93 Oxygen Delivery Me thod Room Air Oxygen Flow Rate 0 01/22/23 02:41 01/22/23 09:00 01/22/23 11:00 Temperature 98 F 98.9 F Pulse Rate [Pulse Oximeter] 76 78 72 Respiratory Rate 18 18 16 Blood Pressure [Ri ght Arm] 117/73 123/71 91/48 L Pulse Oximetry 92 92 93 Oxygen Delivery Me thod Room Air Room Air Oxygen Flow Rate 01/22/23 11:42 01/22/23 12:01 Temperature Pulse Rate [Pulse Oximeter] 68 Respiratory Rate 16 Blood Pressure [Ri ght Arm] 83/47 L 96/51 L Pulse Oximetry 90 Oxygen Delivery Me thod Oxygen Flow Rate Labs Labs: Laboratory Results - last 24 hr 01/22/23 06:22 WBC 14.07 H RBC 3.99 L Hgb 11.4 L Hct 34.8 L MCV 87 MCH 29 MCHC 33 RDW Coeff of Odnnie 13.1 Plt Count 199 Neut % (Auto) 82.8 H Lymph % (Auto) 9.2 L Ford % (Auto) 7.8 Eos % (Auto) 0.0 Baso % (Auto) 0.0 Neut # (Auto) 11.60 H Lymph # (Auto) 1.30 Ford # (Auto) 1.10 H Eos # (Auto) 0.00 Baso # (Auto) 0.00 Abs Immat Gran (auto) 0.00 Imm/Tot Granulo (auto) 0.2 Sodium 136 Potassium 4.4 BUN 16 Creatinine 0.8 Estimated Creat Clear 71.02 Estimated GFR 92
--- OUTSIDE RECORDS SUMMARY | 2023-01-23 10:41 | XMS_ITS | Continuity of Care Document ---
Author Name Unknown Organization [facility] Address [address] [place] [address] Phone Care Team Providers Care [employer] Ambassador Name Role Phone Minesh Fonseca Unavailable Unavailable Procedures Procedure Date Office/Outpatient Visit,[place] 2021 Advance Directives Directive Yes / No Effective Date File Name No Information Encounters Encounter Description Practice Location Reason(s) For Visit Diagnoses Date Provider Providers Copied on Encounter Office/Outpat ient Visit,, [facility], [address], [place], [place], [id number], [place] tel:[phone] [facility] Other intervertebral disc degeneration, lumbar region 2 [address]. [facility], [address], [address], [place], [place], [id number] , [place]. tel:[phone] Ref[facility] Provider: [facility] [address] [place] [address], [address]. tel:[phone] Family History Family Member Type Diagnosis Age At Onset No Information Payers Payer name Insurance type Covered green party ID Authoriza tion(s) [employer] Gold Choice Sienna MB [id number] Social History Type Description Quantity Date [...]
== END 2023-01-22 15:30 ==
LOC: OR 06:02 → MEDSURG 06:04 → OR 01-22 12:51 → MEDSURG 01-22 12:52
PROVIDERS: PCP Internal Medicine; Visit Provider Orthopaedic Surgery Sports Medicine
PROC: (CPT 27130; principal; 2023-01-21 07:30)
DX: M16.12 Unilateral primary osteoarthritis, left hip (principal); G89.18 Other acute postprocedural pain; G47.33 Obstructive sleep apnea (adult) (pediatric); J44.9 Chronic obstructive pulmonary disease, unspecified; I25.10 Atherosclerotic heart disease of native coronary artery without angina pectoris; F11.90 Opioid use, unspecified, uncomplicated; I11.0 Hypertensive heart disease with heart failure; I50.9 Heart failure, unspecified; G89.29 Other chronic pain; M54.50 Low back pain, unspecified
CPT/HCPCS: 27130; 01214; 36415; 64450; 73501; 76000; 76942; 82565; 84132; 84295; 84520; 85025; 97110; 97116; 97161; 97165; 97530; 97535; 99100; A9270; C1776; J0330; J0690; J1100; J1170; J2250; J2405; J2704; J2795; J3010; J7120

== ENCOUNTER 2023-02-04 10:51 | Inpatient (IN) | payer OTHER, MEDICAID, SELFPAY ==
[2023-02-04] VITALS (41 sets, daily range): BP systolic 80–114; BP diastolic 46–71; PULSE 108–136; RESP 18–24; TEMP 37.5–38.1; O2SAT 84–98; BMI 26.8; BMI 26.5
--- NOTE | 2023-02-04 | CRLHL7_ITS ---
For Patients: As a result of the Century Cures Act, medical imaging exams and procedure reports are released immediately into your electronic medical record. You may view this report before your referring provider. If you have questions, please contact your health care provider. INDICATION: .SOB, ABD PAIN, RECENT HIP SURGERY (2 WEEKS) TECHNIQUE: CT chest PE and abdomen pelvis was acquired with 95 cc Isovue 370 IV contrast. COMPARISON: July 2022 FINDINGS: Pulmonary Arteries: Bilateral acute PE extending from the main pulmonary arteries distally into the segmental and subsegmental pulmonary arteries bilaterally, large clot burden. No pulmonary artery hypertension. Questionable right heart strain. Heart and Mediastinum: The visualized portions of the thyroid are normal. No axillary or supraclavicular lymphadenopathy. No mediastinal, hilar or retrocrural lymphadenopathy. Normal heart size. Normal caliber aorta. Atherosclerotic calcifications of the aorta and its branches. Coronary artery calcifications. Mitral annular calcifications. Lungs and Airways: Left lower lobe dependent consolidation. Right lower lobe linear atelectasis. Left lower lobe areas of endobronchial mucous plugging. Retained tracheal secretions. Pleura: Small left pleural effusion. Abdomen: Normal enhancement of the liver. Calcified hepatic granuloma. Cholecystectomy. Normal caliber bowel ducts. Normal enhancement of the spleen. Normal enhancement of the pancreas. Punctate calcifications within the pancreatic body likely reflecting sequela of chronic pancreatitis. Normal adrenal glands. Normal enhancement of the kidneys with subcentimeter hypodensities that are too small to characterize however statistically represent cysts. No hydroureteronephrosis. Stomach is relatively decompressed. Normal caliber small and large bowel loops. Appendix is not definitively visualized. Infrarenal abdominal aortic aneurysm with aorto bi-iliac stent graft. Atherosclerotic calcifications. No lymphadenopathy by size criteria. Urinary bladder is decompressed. Normal size prostate. Calcified vas deferens suggesting underlying diabetes. Bones and soft tissues: Thoracic spondylosis. Sternotomy wires. Changes of lumbar fixation hardware. Left hip arthroplasty. Right hip joint arthrosis. Grade 2 anterolisthesis of L4 on L5. 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 IMPRESSION: 1. Bilateral acute PE extending from the main pulmonary arteries distally into the segmental and subsegmental pulmonary arteries bilaterally, large clot burden. No pulmonary artery hypertension. Questionable right heart strain. 2. Left lower lobe dependent consolidation with small left pleural effusion. Right lower lobe linear atelectasis. Left lower lobe areas of endobronchial mucous plugging. Retained tracheal secretions. Constellation of findings favor aspiration/pneumonia. Please note that all CT scans at this facility use dose modulation, iterative reconstruction, and/or weight-based dosing when appropriate to reduce radiation dose to as low as reasonably achievable. Dictated by Aashish Cho MD @ 02/04/2023 1:23:18 PM (Electronically Signed)
--- NOTE | 2023-02-04 11:28 | ED.GENADULT ---
HPI - General Adult General Chief complaint: Post Op Complication Stated complaint: Pneumonia Time Seen by Provider: 02/04/23 11:16 History of Present Illness HPI narrative: This 77-year-old male comes in by ambulance because of shortness of breath and dysuria symptoms. He had a hip replacement done electively recently. He does have a history of COPD but normally is not on oxygen. He arrives here with a temperature 100.6? and he is diaphoretic. His oximetry was decreased to 85%. With nasal cannula oxygen he is up to 92% oximetry. He arrives with tachycardia. He also reports urine retention and states that a straight catheter was placed yesterday temporarily and removed around 1300 mL of urine. Today again about 600 mL were retained in his bladder. Related Data Home Medications Medication Instructions Recorded Confirmed metoprolol succinate 100 mg 100 mg PO DAILY 10/11/21 01/21/23 tablet,extended release 24 hr acetaminophen 500 mg tablet 500 - 1,000 mg PO Q6H PRN 11/09/21 01/21/23 fexofenadine 180 mg tablet 180 mg PO DAILY 11/10/21 01/21/23 (Joanna Allergy) melatonin 5 mg capsule 10 mg PO HS PRN 11/10/21 01/21/23 cpap 01/17/22 01/09/23 clopidogrel 75 mg tablet 75 mg PO DAILY 04/18/22 01/22/23 famotidine 20 mg tablet 20 mg PO DAILY 01/09/23 01/21/23 cholecalciferol (vitamin D3) 25 50 mcg PO DAILY 01/21/23 01/21/23 mcg (1,000 unit) chewable tablet (Vitamin D3) cyanocobalamin (vitamin B-12) 1,000 mcg PO DAILY Anemia 01/21/23 01/21/23 1,000 mcg tablet losartan 25 mg tablet 25 mg PO DAILY Hypertension 01/21/23 01/21/23 roflumilast 500 mcg tablet 500 mcg PO DAILY Anemia 01/21/23 01/21/23 (Daliresp) tiotropium bromide 18 mcg capsule 1 cap inhalation DAILY COPD 01/21/23 01/21/23 with inhalation device (Spiriva with HandiHaler) Previous Rx's Medication Instructions Recorded budesonide-formoterol HFA 80 2 puff inhalation BID COPD #3 ea 08/20/22 mcg-4.5 mcg/actuation aerosol inhaler (Symbicort) ipratropium 0.5 mg-albuterol 3 mg 3 ml inhalation TID PRN copd 09/03/22 (2.5 mg base)/3 mL nebulization #1,080 mL soln nitroglycerin 0.4 mg sublingual 0.4 mg sublingual Q5-15M Angina 09/03/22 tablet #100 tabs cholecalciferol (vitamin D3) 25 25 mcg PO DAILY Weakness #90 tabs 09/07/22 mcg (1,000 unit) tablet allopurinol 100 mg tablet 100 mg PO DAILY #90 tabs 09/27/22 ipratropium bromide 21 mcg (0.03 2 spray intranasal TID #30 mL 09/27/22 %) nasal spray rosuvastatin 40 mg tablet 40 mg PO DAILY #90 tabs 10/04/22 methimazole 5 mg tablet 5 mg PO QDAY #90 tabs 10/08/22 omeprazole 20 mg capsule,delayed 20 mg PO DAILY #90 caps 11/19/22 release fluticasone propionate 50 2 spray intranasal BID Allergies 12/13/22 mcg/actuation nasal #48 grams spray,suspension albuterol sulfate 90 mcg/actuation 2 puff inhalation Q4H PRN 01/02/23 aerosol inhaler shortness of breath or wheezing #8.5 grams triamcinolone acetonide 0.1 % 1 applic topical BID #80 grams 01/02/23 topical cream hydroxyzine pamoate 25 mg capsule 25 mg PO Q6-8H PRN #20 caps 01/22/23 oxycodone 5 mg tablet 2.5 - 5 mg (0.5 - 1 x 5 mg) PO 01/22/23 Q4-6H PRN pain #42 tabs rivaroxaban 10 mg tablet 10 mg PO DAILY #4 tabs 01/22/23 sennosides 8.6 mg-docusate sodium 1 - 4 tab-cap (1 - 4 x 8.6-50 mg) 01/22/23 50 mg tablet (Senna-S) PO BID PRN constipation #60 tabs Allergies Allergy/AdvReac Type Severity Reaction Status Date / Time bupropion Allergy Unknown tinnitus Verified 01/21/23 06:25 isosorbide Allergy Unknown Headache Verified 01/21/23 06:25 spironolactone Allergy Unknown gynecomasti Verified 01/21/23 06:25 a topiramate Allergy Unknown doses Verified 01/21/23 06:25 higher than 50 daily not tolerated venlafaxine Allergy Unknown Anxiety Verified 01/21/23 06:25 Review of Systems Status of ROS: Reports: 10 or more systems reviewed and unremarkable except as noted in History and below Narrative: Constitutional: No fevers, no weight gain or loss. Eyes: No discharge. No vision changes. HENT: No congestion, no sore throat, no ear pain. Cardiovascular: No chest pain, no palpitations. Respiratory: He reports a cough and shortness of breath. Gastrointestinal: No vomiting, no diarrhea. He reports abdominal pain. Genitourinary: Urinary retention. He reports dark-colored urine. Musculoskeletal: Normal range of motion. He reports some back pain. Skin: No rashes, no pruritis. Neurological: No dizziness, weakness, sensory change, speech change. Endo/Heme/Allergies: No bruising or bleeding. No polydipsia. Pysch: no suicidality, no anxiety, no insomnia. All other systems reviewed and are negative. [facility] Medical History (Updated 02/04/23 @ 14:14 by Sandro Francisco MD) Osteoarthritis of left hip ?M16.12 - Unilateral primary osteoarthritis, left hip (ICD-10) TMJ (temporomandibular joint syndrome) ?M26.609 - Unspecified temporomandibular joint disorder, unspecified side (ICD-10) Lumbar degenerative disc disease ?M51.36 - Other intervertebral disc degeneration, lumbar region (ICD-10) Low back pain ?M54.50 - Low back pain, unspecified (ICD-10) COPD (chronic obstructive pulmonary disease) ?J44.9 - Chronic obstructive pulmonary disease, unspecified (ICD-10) Chronic low back pain ?M54.50 - Low back pain, unspecified (ICD-10) ?G89.29 - Other chronic pain (ICD-10) Right shoulder pain ?M25.511 - Pain in right shoulder (ICD-10) Lesion of right external ear ?H61.91 - Disorder of right external ear, unspecified (ICD-10) Thrush, oral ?B37.0 - Candidal stomatitis (ICD-10) Insomnia ?G47.00 - Insomnia, unspecified (ICD-10) Anemia ?D64.9 - Anemia, unspecified (ICD-10) Gout ?M10.9 - Gout, unspecified (ICD-10) Angina at rest ?I20.8 - Other forms of angina pectoris (ICD-10) Hypertension ?I10 - Essential (primary) hypertension (ICD-10) Seasonal allergic rhinitis ?J30.2 - Other seasonal allergic rhinitis (ICD-10) Peripheral vascular disease ?I73.9 - Peripheral vascular disease, unspecified (ICD-10) Obstructive sleep apnea treated with continuous positive airway pressure (CPAP) ?G47.33 - Obstructive sleep apnea (adult) (pediatric) (ICD-10) ?Z99.89 - Dependence on other enabling machines and devices (ICD-10) Monoclonal gammopathy ?D47.2 - Monoclonal gammopathy (ICD-10) Hyperlipidemia ?E78.5 - Hyperlipidemia, unspecified (ICD-10) History of malignant neoplasm of skin ?Z85.828 - Personal history of other malignant neoplasm of skin (ICD-10) History of depression ?Z86.59 - Personal history of other mental and behavioral disorders (ICD-10) History of calcium pyrophosphate deposition disease (CPPD) ?Z87.39 - Personal history of other diseases of the musculoskeletal system and connective tissue (ICD-10) History of adenomatous polyp of colon (02/12/18) ?Z86.010 - Personal history of colonic polyps (ICD-10) Gastroesophageal reflux disease ?K21.9 - Gastro-esophageal reflux disease without esophagitis (ICD-10) Enlarged prostate ?N40.0 - Benign prostatic hyperplasia without lower urinary tract symptoms (ICD-10) Coronary artery disease ?I25.10 - Atherosclerotic heart disease of [place] coronary artery without angina pectoris (ICD-10) Congestive heart failure ?I50.9 - Heart failure, unspecified (ICD-10) Chronic, continuous use of opioids ?F11.90 - Opioid use, unspecified, uncomplicated (ICD-10) Chronic right shoulder pain (2018) ?M25.511 - Pain in right shoulder (ICD-10) ?G89.29 - Other chronic pain (ICD-10) Chronic pancreatitis ?K86.1 - Other chronic pancreatitis (ICD-10) Chronic obstructive pulmonary disease ?J44.9 - Chronic obstructive pulmonary disease, unspecified (ICD-10) Chronic neck pain ?M54.2 - Cervicalgia (ICD-10) ?G89.29 - Other chronic pain (ICD-10) Carpal tunnel syndrome of right wrist ?G56.01 - Carpal tunnel syndrome, right upper limb (ICD-10) Aortic aneurysm ?I71.9 - Aortic aneurysm of unspecified site, without rupture (ICD-10) Hyperthyroidism ?E05.90 - Thyrotoxicosis, unspecified without thyrotoxic crisis or storm (ICD-10) Surgical History (Updated 01/28/23 @ 09:02 by Sally Barraza ~ [facility], [facility]) History of total left hip replacement (01/21/23) ?Z96.642 - Presence of left artificial hip joint (ICD-10) H/O excision of ganglion cyst (04/25/22) ?Z98.890 - Other specified postprocedural states (ICD-10) History of carpal tunnel surgery of left wrist (04/25/22) ?Z98.890 - Other specified postprocedural states (ICD-10) Status post coronary angiogram ?Z98.890 - Other specified postprocedural states (ICD-10) History of carpal tunnel surgery of right wrist (11/30/20) ?Z98.890 - Other specified postprocedural states (ICD-10) S/P cubital tunnel release (11/30/20) ?Z98.890 - Other specified postprocedural states (ICD-10) Status post six vessel coronary artery bypass graft (1996) ?Z95.1 - Presence of aortocoronary bypass graft (ICD-10) History of umbilical hernia repair (04/16/13) ?Z98.890 - Other specified postprocedural states (ICD-10) ?Z87.19 - Personal history of other diseases of the digestive system (ICD-10) History of spinal surgery ?Z98.890 - Other specified postprocedural states (ICD-10) History of rotator cuff surgery (2007) ?Z98.890 - Other specified postprocedural states (ICD-10) History of operative procedure on hip (04/01/18) ?Z98.890 - Other specified postprocedural states (ICD-10) History of endarterectomy (2012) ?Z98.890 - Other specified postprocedural states (ICD-10) History of colonoscopy with polypectomy ?Z98.890 - Other specified postprocedural states (ICD-10) ?Z86.010 - Personal history of colonic polyps (ICD-10) History of cholecystectomy ?Z90.49 - Acquired absence of other specified parts of digestive tract (ICD-10) History of carpal tunnel surgery of left wrist (2007) ?Z98.890 - Other specified postprocedural states (ICD-10) History of appendectomy ?Z90.49 - Acquired absence of other specified parts of digestive tract (ICD-10) History of aortic aneurysm repair (2012) ?Z98.890 - Other specified postprocedural states (ICD-10) ?Z86.79 - Personal history of other diseases of the circulatory system (ICD-10) Family History Father Asthma Sister Asthma Breast cancer Lung cancer Mother Dementia Rheumatoid arthritis Social History (Updated 01/21/23 @ 18:32 by Nikolay Alvarez MD) Narrative: , five daughters, does not use illicit drugs, nonsmoker. Occasional alcohol. History of some cannabis use but not recently and not regularly. Lives in [facility]. Is seeking longterm facility for rehab following this surgery. What is your current living situation?: I presently have a place to live In the past 12 months, utilities in danger of being shut off: no In past 12 months, lack of transportation kept you from medical appts, meetings, work, or getting things needed for daily living: no In the past 12 mos, have been you worried that your food would run out before you had money to buy more?: never true In the past 12 mos, the food you bought just didn't last and you didn't have money to buy more?: never true Smoking Status: Former smoker Do you use any of these nicotine containing products: None Second hand tobacco smoke exposure: No How often do you have a drink containing alcohol: monthly or less How many standard drinks containing alcohol do you have on a typical day: 3 or 4 How often do you have six or more drinks on one occasion: Less than monthly AUDIT-C Alcohol total score: 3 Non-prescribed substance use: denies use Non-prescribed substance use details: was trying THC gummies but not effective and hasn't had them in a while. Caffeine: No How often does anyone, including family, friends and others, physically hurt you: never How often does anyone, including family, friends and others, insult or talk down to you: never How often does anyone, including family, friends and others, threaten you with harm: never How often does anyone, including family, friends and others, scream or curse at you: never Little interest or pleasure in doing things: more than half the days Feeling down, depressed, or hopeless: several days service: No Exam Narrative: Exam Narrative: Constitutional: Well-developed, well-nourished, no acute distress. He is diaphoretic. HEENT: Normocephalic, atraumatic. Neck: Normal range of motion. Nontender. Supple. Heart: Regular. No murmurs. Tachycardia. Intact distal pulses. Lungs: Clear to auscultation. No chest discomfort. No wheezes, rhonchi, or rales. Abdomen: Normal bowel sounds. Diffuse tenderness throughout the abdomen. Genitalia: Deferred. Back: Normal range of motion. Extremities: Recent left hip replacement. Skin: Intact. No rash. Warm. No erythema or pallor. Neurologic: No altered sensation. No weakness. Alert and oriented. Psychiatric: No suicidality. No anxiety or depression. No insomnia. Nursing notes and vitals signs are reviewed. Const: Vital Signs, click to edit/add: Vital Signs - 24 hr 02/04/23 10:57 02/04/23 11:06 02/04/23 11:47 Temperature 100.6 F H Pulse Rate 133 H Pulse Rate [Pulse Oximeter] 132 H Respiratory Rate 18 Blood Pressure Blood Pressure [Ri ght Upper Arm] 105/58 L Pulse Oximetry 85 L 92 94 Oxygen Delivery Me thod Room Air Nasal Cannula Oxygen Flow Rate 6 02/04/23 12:00 02/04/23 12:02 02/04/23 12:03 Temperature Pulse Rate 133 H 134 H 135 H Pulse Rate [Pulse Oximeter] Respiratory Rate Blood Pressure 82/57 L Blood Pressure [Ri ght Upper Arm] Pulse Oximetry 93 93 93 Oxygen Delivery Me thod Oxygen Flow Rate 02/04/23 12:23 02/04/23 12:24 02/04/23 12:30 Temperature Pulse Rate 129 H 127 H 136 H Pulse Rate [Pulse Oximeter] Respiratory Rate Blood Pressure 87/58 L Blood Pressure [Ri ght Upper Arm] Pulse Oximetry 92 92 93 Oxygen Delivery Me thod Oxygen Flow Rate 02/04/23 12:32 02/04/23 12:33 02/04/23 12:45 Temperature Pulse Rate 129 H 130 H 129 H Pulse Rate [Pulse Oximeter] Respiratory Rate Blood Pressure 104/59 L Blood Pressure [Ri ght Upper Arm] Pulse Oximetry 92 93 95 Oxygen Delivery Me thod Oxygen Flow Rate Course Vital Signs Vital signs: Initial Vital Signs Temperature 100.6 F H 02/04/23 10:57 Temperature Source Temporal Artery Scan 02/04/23 10:57 Pulse Rate 132 H 02/04/23 10:57 Pulse Rhythm Regular 02/04/23 10:57 Respiratory Rate 18 02/04/23 10:57 Blood Pressure 105/58 L 02/04/23 10:57 Blood Pressure Mean 73 02/04/23 10:57 Blood Pressure Position Supine 02/04/23 10:57 Pulse Oximetry 85 L 02/04/23 10:57 Oxygen Delivery Method Room Air 02/04/23 10:57 Vital Signs Temperature 100.6 F H 02/04/23 10:57 Pulse Rate 132 H 02/04/23 10:57 Respiratory Rate 18 02/04/23 10:57 Blood Pressure 105/58 L 02/04/23 10:57 Pulse Oximetry 85 L 02/04/23 10:57 Oxygen Delivery Method Room Air 02/04/23 10:57 Temperature 100.6 F H 02/04/23 10:57 Pulse Rate 129 H 02/04/23 12:45 Respiratory Rate 18 02/04/23 10:57 Blood Pressure 104/59 L 02/04/23 12:32 Pulse Oximetry 95 02/04/23 12:45 Oxygen Delivery Method Nasal Cannula 02/04/23 11:06 Oxygen Flow Rate 6 02/04/23 11:06 Medications Administered Medications: Discontinued Medications Generic Name Dose Route Start Last Admin Trade Name Freq PRN Reason Stop Dose Admin Sodium Chloride 1,000 mls @ 1,000 mls/hr 02/04/23 12:30 02/04/23 13:14 0.9 % Sodium Chloride 1000 Ml IV 02/04/23 13:29 Infused .Q1H MICHELE Infusion Medical Decision Making MDM Narrative Medical decision making narrative: This patient comes in with shortness of breath and tachycardia. He is also diaphoretic. An IV was established and the patient did receive a L of normal saline intravenously. His lactate returns normal. Chest x-ray does show suspicion of a left lower lobe pneumonia which could possibly be aspiration pneumonia. CT imaging of the chest, abdomen, and pelvis are obtained and there is evidence of large bilateral pulmonary embolism. The patient did have a hip replacement a couple weeks ago and did take Xarelto for 5 days but has been off of this medicine now for the past 8 or 9 days. He is not showing any significant sign of right heart strain but continues to have increased heart rate at around 130 beats per minute. His troponin returns at 0. The patient did receive an IV dose of heparin and arrangements are made for admission into the hospital. He also received an IV dose of Zosyn. Lab Data Labs: Lab Results 02/04/23 02/04/23 Range/Units 11:35 13:03 WBC 14.63 H (4.50-11.00) K/uL RBC 3.78 L (4.30-5.90) m/uL Hgb 10.6 L (13.5-17.5) gm/dL Hct 33.6 L (37.0-53.0) % MCV 89 (80-100) fL MCH 28 (26-34) pg MCHC 32 (32-36) gm/dL RDW Coeff of Donnie 13.0 (11.5-15.5) % Plt Count 224 (140-440) K/uL Neut % (Auto) 84.1 H (42.0-72.0) % Lymph % (Auto) 6.6 L (20-44) % [place] % (Auto) 9.0 (0.0-11.0) % Eos % (Auto) 0.0 (0.0-7.0) % Baso % (Auto) 0.1 (0.0-3.0) % Neut # (Auto) 12.30 H (1.7-7.0) K/uL Lymph # (Auto) 1.00 (0.90-2.90) K/uL [place] # (Auto) 1.30 H (0.00-0.90) K/UL Eos # (Auto) 0.00 (0.00-0.50) K/uL Baso # (Auto) 0.00 (0.00-0.30) K/uL Abs Immat Gran (auto) 0.00 (0.00-0.30) K/uL Imm/Tot Granulo (auto) 0.2 % D-Dimer Quant (PE/DVT) 6.64 H (0.00-0.50) ug/ml Sodium 134 L (135-149) mmol/L Potassium 4.3 (3.6-5.1) mmol/L Chloride 103 (96-114) mmol/L Carbon Dioxide 21 (20-32) mmol/L Anion Gap 10 (7-15) mEq/L BUN 37 H (7-30) mg/dL Creatinine 1.1 (0.5-1.5) mg/dL Estimated Creat Clear 66.42 Estimated GFR 70 ml/min Glucose 116 H (60-115) mg/dL Lactate 1.1 (0.5-1.9) mmol/L Calcium 9.6 (8.4-10.6) mg/dL NT-Pro-B Natriuret Pep 1710 pg/mL Urine Color Yellow (Yellow) Urine Appearance Cloudy A (Clear) Urine pH 5.0 (5.0-8.5) Ur Specific [place] 1.020 (1.000-1.030) Urine Protein 2+ A (Negative) Urine Glucose (UA) Negative (Negative) Urine Ketones Trace A (Negative) Urine Blood 1+ A (Negative) Urine Nitrite Negative (Negative) Urine Bilirubin 1+ A (Negative) Urine Urobilinogen 0.2 (0.2-1.0) Ur Leukocyte Esterase Negative (Negative) Urine RBC 5-10 A (0-2) Urine WBC 2-5 (0-5) Ur Squamous Epith Cells Moderate A (None-Few) Amorphous Sediment Many A (None) Other Sediment (None) Urine Bacteria Few A (None) SARS-CoV-2 (PCR) Negative SARS-CoV-2 (Negative) Influenza Type A (PCR) Negative PCR FLU A (Negative) Influenza Type B (PCR) Negative PCR FLU B (Negative) RSV (PCR) Negative PCR RSV (Negative) POC Troponin I 0.00 L (0.01-0.04) ng/ml Imaging Data CT scan - chest: Radiologist's impression: 1. Bilateral acute PE extending from the main pulmonary arteries distally into the segmental and subsegmental pulmonary arteries bilaterally, large clot burden. No pulmonary artery hypertension. Questionable right heart strain. 2. Left lower lobe dependent consolidation with small left pleural effusion. Right lower lobe linear atelectasis. Left lower lobe areas of endobronchial mucous plugging. Retained tracheal secretions. Constellation of findings favor aspiration/pneumonia. ECG Data Attestation: I personally reviewed and interpreted this ECG as follows: Interpretation: Sinus tachycardia, rate 131 beats per minute. There are no specific ST or T-wave abnormalities. Discharge Plan Discharge Clinical Impression: Pulmonary embolism, Pneumonia Patient Disposition: Admitted As Inpatient Condition: Unchanged Prescriptions: No Action acetaminophen 500 mg tablet 500 - 1,000 mg PO Q6H PRN Rx Instructions: NO MORE THAN 4000 MG/DAY fexofenadine [Joanna Allergy] 180 mg tablet 180 mg PO DAILY melatonin 5 mg capsule 10 mg PO HS PRN (DME) cpap 0 .Route .MEDSUPPLY clopidogrel 75 mg tablet 75 mg PO DAILY Hold Instructions: Resume on 01/27/23. May restart this medication after completing Xarelto. famotidine 20 mg tablet 20 mg PO DAILY metoprolol succinate 100 mg tablet extended release 24 hr 100 mg PO DAILY cyanocobalamin (vitamin B-12) 1,000 mcg tablet 1,000 mcg PO DAILY losartan 25 mg tablet 25 mg PO DAILY tiotropium bromide [Spiriva with HandiHaler] 18 mcg capsule, w/inhalation device 1 cap inhalation DAILY cholecalciferol (vitamin D3) [Vitamin D3] 25 mcg (1,000 unit) tablet,chewable 50 mcg PO DAILY roflumilast [Daliresp] 500 mcg tablet 500 mcg PO DAILY hydroxyzine pamoate 25 mg capsule 25 mg PO Q6-8H PRNQty: 20 0RF Rx Instructions: This will help augment oxycodone for pain. sennosides-docusate sodium [Senna-S] 8.6-50 mg tablet 1 - 4 tab-cap PO BID PRN (Reason: constipation) Qty: 60 0RF Rx Instructions: Hold medication if experiencing loose stools. oxycodone 5 mg tablet 2.5 - 5 mg PO Q4-6H MDD 6 PRN (Reason: pain) Qty: 42 0RF Rx Instructions: Take as needed for postop pain: 2.5mg mild pain, 5mg moderate-severe pain; wean as tolerated. rivaroxaban 10 mg tablet 10 mg PO DAILY Qty: 4 0RF Rx Instructions: Medication for deep vein clot prevention post surgery. Complete this medication before starting Aspirin. budesonide-formoterol [Symbicort] 80-4.5 mcg/actuation HFA aerosol inhaler 2 puff inhalation BID Qty: 3 3RF ipratropium-albuterol 0.5 mg-3 mg(2.5 mg base)/3 mL solution for nebulization 3 ml inhalation TID PRN (Reason: copd) Qty: 1080 3RF nitroglycerin 0.4 mg tablet, sublingual 0.4 mg sublingual Q5-15M Qty: 100 1RF cholecalciferol (vitamin D3) 25 mcg (1,000 unit) tablet 25 mcg PO DAILY Qty: 90 0RF allopurinol 100 mg tablet 100 mg PO DAILY Qty: 90 2RF ipratropium bromide 21 mcg (0.03 %) spray,non-aerosol 2 spray intranasal TID Qty: 30 10RF rosuvastatin 40 mg tablet 40 mg PO DAILY Qty: 90 3RF methimazole 5 mg tablet 5 mg PO QDAY Qty: 90 2RF omeprazole 20 mg capsule,delayed release(DR/EC) 20 mg PO DAILY Qty: 90 0RF fluticasone propionate 50 mcg/actuation spray,suspension 2 spray intranasal BID Qty: 48 0RF albuterol sulfate 90 mcg/actuation HFA aerosol inhaler 2 puff inhalation Q4H PRN (Reason: shortness of breath or wheezing) Qty: 8.5 2RF triamcinolone acetonide 0.1 % cream 1 applic topical BID Qty: 80 0RF Follow Up/Referrals: Yordy Morin MD [Primary Care Provider] -
--- OUTSIDE RECORDS SUMMARY | 2023-02-04 11:32 | XMS_ITS | Continuity of Care Document ---
Author Name Unknown Organization [facility] Address [address] [place] [address] Phone Care Team Providers Care Pest Control Applicator Name Role Phone Malachi Beth NP Unavailable Unavailable Allergies, Adverse Reactions, Alerts Substance Reaction Status Criticality No Known Drug Allergies Active No I nformation Medications Medication Instructions Dosage Effective Dates (start - stop) Status Comments aspirin 81 mg tablet,delayed release take 1 tablet by oral route every day 81 MG - Active ezetimibe 10 mg tablet take 1 tablet by oral route every day 10 MG - Active nitroglycerin 0.[address] 1 tablet by sublingual route at the first sign of an attack; no more than 3 tabs are recommended within a 15 minute period. 0.3 MG - Active Spiriva with HandiHaler 18 mcg & inhalation capsules inhale 1 capsule by inhalation route every day - Active Vitamin D2 50,000 unit capsule take 1 capsule by oral route every week - Active albuterol sulfate HFA 90 mcg/actuation Aerosol Inhaler inhale 2 puff by inhalation route every 4 hours as needed 2 puff - Active Symbicort 80 mcg-4.5 mcg/actuation HFA Aerosol Inhaler inhale 2 puff by inhalation route 2 times every day in the morning and evening 2.00 puff - Active Flonase 50 mcg/actuation Nasal Morven spray 2 spray by intranasal route every day in each nostril 2 spray - Active ipratropium-albutero l 18 mcg-103 mcg/actuation Aerosol Inhaler inhale 2 puff by INHALATION route every day - Active atenolol 25 mg tablet take 1 tablet by oral route every day 25 MG - Active loratadine 10 mg capsule take 1 by Oral route every day 1 - Active cyanocobalamin (vit B-12) 1,000 mcg tablet take 1 tablet by mouth daily - Active oxycodone-acetaminop hen 5 mg-325 mg tablet take 1/2 to 1 tablet by mouth every 4-6 hours as needed; max 2 tablets per day - No Longer Active Two month Rx; Okay to fill 04/12/16, to last until 05/12/16. Procedures Procedure Date Est Pt Eval 25 Min Est Pt Eval 25 Min Toxicology Test Group B Est Pt Eval 25 Min Est Pt Eval 25 Min Est Pt Eval 25 Min Est Pt Eval 15 Min Toxicology Test Group C Est Pt Eval 15 Min Est Pt Eval 15 Min Neuromuscular Re-education Therapeutic Procedure Est Pt Eval 15 Min Pain Assessment And Follow Up Plan Docum ent Therapeutic Procedure Neuromuscular Re-education Therapeutic Procedure Therapeutic Activities Neuromuscular Re-education Est Pt Eval 25 Min Assay of amphetamine or methamphetamine Assay of cocaine or metabolite Assay of methadone Opiate(s), drug and metabolites, each pr ocedure Drug confirmation, each procedure Pain Assessment And Follow Up Plan Docum ented Inj Anes Epidur; Lumb/sac 1 Le 15 Epidurography Rad S&i IV Cons Sed First 30M Inj Anes Epidur; Lumb/sac 1 Le 15 Inj Anes Epidur; Lumb/sac 1 Le 15 Inj Anes Epidur; Lumb/sac 1 Le 15 Mod cs by same phys, 5 yrs + Est Pt Eval 25 Min Pain Assessment And Follow Up Plan Docum ent Aquatic Therapy Aquatic Therapy Est Pt Eval 25 Min Pain Assessment And Follow Up Plan Docum ent Aquatic Therapy Aquatic Therapy Phys Therap Eval Therapeutic Procedure Neuromuscular Re-education Mobility: Walking & Moving Around, Goal Mobility: Walking & Moving Around, Curre nt Est Pt Eval 25 Min [facility] Eval 25 Min Assay of benzodiazepines Assay of amphetamine or methamphetamine Assay of barbiturates, not elsewhere spe cified Assay of cocaine or metabolite 15 Assay of methadone Opiate(s), drug and metabolites, each pr ocedure Drug confirmation, each procedure Pain Assessment And Follow Up Plan Docum ent Est Pt Eval 25 Min [facility] Pt Eval 15 Min [facility] Inj Not Lytic-epidur; Cerv/tho 15 Fluoro Guidance - Spine Adverse Events did not occur Patient without preop order for prophyla ctic IV an Epid/SAB Cerv/Thor Fluoroscopic Guidance For Needle Placeme nt - Spine Est Pt Eval 15 Min Pain Assessment And Follow Up Plan Docum ent Est Pt Eval 15 Min Est Pt Eval 25 Min Inj Anes Epidur; Lumb/sac 1 Le 14 Inj Anes Epidur; Lumb/sac 1 Le 14 Inj Anes Epidur; Lumb/sac 1 Le 14 Est Pt Eval 25 Min Inj Anes Epidur; Lumb/sac 1 Le 14 Inj Anes Epidur; Lumb/sac 1 Le 14 Inj Anes Epidur; Lumb/sac 1 Le 14 Inj Anes Epidur; Lumb/sac 1 Le 14 Est Pt Eval 25 Min Psychiatric Diagnostic Evaluation Psycho testing admin by comp Est Pt Eval 25 Min Est Pt Eval 25 Min Est Pt Eval 15 Min Greater Occipital Block Greater Occipital Block Est Pt Eval 25 Min Offic/outpt E&m Estab Mod-hi 2 14 Triggerpoint 1-2 Muscle Depomedrol 80mg Offic/outpt E&m Estab Mod-hi 2 14 Current Med Dosages Verified & Documente d Patient NOT Screened for Alcohol Use May Screen for depression not performed Patient Screened for Tobacco Use with ce ssasion co Pain Assessment And Follow Up Plan Docum ented Offic/outpt E&m Estab Mod-hi 2 14 Current Med Dosages Verified & Documente d Screen for depression not performed Pain Assessment And Follow Up Plan Docum ented Patient NOT Screened for Tobacco Use Apr BMI Not Done No F/U Plan Pre or Hypertensive Blood Pressure no fo llow up do QA DONE Epid/SAB Lumbosacral Epidurography Depomedrol 80mg Lo Osm Contr Mat (200-249mg) Fluoroscopy Radiation Exposure Documente d Celiac Plexus Fluoro Needle NonSpine Lo Osm Contr Mat (200-249mg) Depomedrol 80mg Fluoroscopy Radiation Exposure Documente d QA DONE Offic/outpt E&m New Mod-hi 45 4 Depression Screen Completed & Documented With Follow Up Plan Pain Assessment And Follow Up Plan Docum ented Patient NOT Screened for Alcohol Use Mar Current Meds Documented, Not Verified Ja Patient Screened for Tobacco Use with ce ssasion co Advance Directives Directive Yes / No Effective Date File Name No Information Encounters Encounter Description Practice Location Reason(s) For Visit Diagnoses Date Provider Providers Copied on Encounter Est Pt Eval 25 Min [facility], [address], [place], [place], [address], [place] tel:[phone] [facility] Postlaminecto my syndrome, not elsewhere classifiedLow back painOther cervical disc degeneration, unsp cervical regionLong term (current) use of opiate analgesicOthe r spondylosis with radiculopathy , lumbar regionObesity , unspecified 7 Ignacia Murillo [address], [facility] , [place], [address], [place]. tel:[phone] Referring Provider: Miri Amaya, [address] [place], [address]. tel:[phone] Est Pt Eval 25 Min [facility], [address], [place], [place], [address], [place] tel:[phone] [facility] oysterman (current) use of opiate analgesicLow back painCervicalg iaPostlaminec abel syndrome, not elsewhere classified 7 No Information Referring Provider: Miri Amaya, [address] [place] [address] [address] [place], [address]. tel:[phone] Est Pt Eval 25 Min [facility], [address], [place], [place], [address], [place] tel:[phone] [facility] correction (current) use of opiate analgesicLow back painCervicalg iaPostlaminec abel syndrome, not elsewhere classified Nov-0 6 No Information Referring Provider: Miri Amaya, [address] [place] [address] [address] [place], [address]. tel:[phone] Est Pt Eval 25 Min [facility], [address], [place], [place], [address], [place] tel:[phone] [facility] correction (current) use of opiate analgesicCerv icalgiaLow back painPostlamin ectomy syndrome, not elsewhere classified Sep-0 6 No Information Referring Provider: Miri Amaya, [address] [place] [address] [address] [place], [address]. tel:[phone] Est Pt Eval 25 Min [facility], [address], [place], [place], [address], [place] tel:[phone] [facility] Postlaminecto my syndrome, not elsewhere classifiedLow back painCervicalg iaLong term (current) use of opiate analgesic Colten-0 6 No Information Referring Provider: Miri Amaya, [address] [place] [address] [address] [place], [address]. tel:[phone] Est Pt Eval 15 Min [facility], [address], [place], [place], [address], [place] tel:[phone] [facility] Carpal tunnel syndrome, right upper limbLong term (current) use of opiate analgesicObes ityOther spondylosis with radiculopathy , lumbar region 0-201 6 Op[facility] Too. [address], [place], [address], [place]. tel:[phone] Miri Vargas.Refe rring Provider: Miri Amaya, [address] [place] [address] [address] [place], [address]. tel:[phone] Est Pt Eval 15 Min [facility], [address], [place], [place], [address], [place] tel:[phone] [facility] Other spondylosis with radiculopathy , lumbar regionObesity oysterman (current) use of opiate analgesicCarp al tunnel syndrome, right upper limb 8 6 [facility] Too. [address], [place], [address], [place]. tel:[phone] Referring Provider: Miri Amaya, [address] [place] [address] [address] [place], [address]. tel:[phone] Est Pt Eval 15 Min [facility], [address], [place], [place], [address], [place] tel:[phone] [facility] Other spondylosis with radiculopathy , lumbar regionObesity oysterman (current) use of opiate analgesicCarp al tunnel syndrome, right upper limb 6 [facility] Too. [address], [place], [address], [place]. tel:[phone] Referring Provider: Miri Amaya, [address] [place] [address] [address] [place], [address]. tel:[phone] [facility], [address], [place], [place], [address], [place] tel:[phone] [facility] No Information 5 Barthold PT [place]. [address], [place], [place], [address], [place]. tel:[phone] Referring Provider: Miri Amaya, [address] [place] [address] [address] [place], [address]. tel:[phone] Est Pt Eval 15 Min [facility], [address], [place], [place], [address], [place] tel:[phone] [facility] Other spondylosis with radiculopathy , lumbar regionObesity correction (current) use of opiate analgesic [facility] Too. [address], [place], [address], [place]. tel:[phone] Referring Provider: Miri Amaya, [address] [place] [address] [address] [place] [facility] [place], [place], [address]. tel:[phone] [facility], [address], [place], [place], [address], [place] tel:[phone] [facility] No Information 5 Barthold PT [place]. [address], [address], [place]. tel:[phone] Referring Provider: Miri Amaya, [address] [place] [address] [address] [place], [address]. [phone] [facility], [address], [place], [address], [place] tel:[phone] [facility] No Information 5 Barthold PT [place]. [address], [place], [address], [place]. tel:[phone] Referring Provider: Miri Amaya, [address] [place] [address] [address] [place], [address]. tel:[phone] Est Pt Eval 25 Min [facility], [address], [place], [place], [address], [place] tel:[phone] [facility] correction (current) use of opiate analgesicObes ityOther spondylosis with radiculopathy , lumbar region 9-201 5 Da Gallego. [address], [place], [place], [address], [place]. tel:[phone] Referring Provider: Miri Amaya, [address] [place] [address] [address] [place] [facility] [place], [place], [address]. tel:[phone] [facility], [address], [place], [address], [place] tel:[phone] [facility] No Information Sep-3 0-201 5 Lazaro Zendejas. [address], [place], [place], [address], [place]. tel:[phone] Referring Provider: Aashish Ly, [address], [place], [address]. tel:[phone] [facility], [address], [place], [place], [address], [place] tel:[phone] [facility] No Information Sep-3 0-201 5 Lazaro Zendejas. [address], [place], [place], [address], [place]. tel:[phone] Referring Provider: Miri Amaya, [address] [place] [address] [address] [place], [address]. tel:[phone] Est Pt Eval 25 Min [facility], [address], [place], [place], [address], [place] tel:[phone] [facility] No Information 0 8 5 Openda Too. [address], [place], [address], [place]. tel:[phone] Referring Provider: Miri Amaya, [address] [place] [address] [address] [place], [address]. tel:[phone] [facility], [address], [place], [place], [address], [place] tel:[phone] [facility] No Information 2 5 Herminia Swapna. [address], [place], [place], [address], [place]. tel:[phone] Referring Provider: Miri Amaya, [address] [place] [address] [address] [place], [address]. tel:[phone] [facility], [address], [place], [place], [address], [place] tel:[phone] [facility] No Information 0 5 Herminia Swapna. [address], [place], [place], [address], [place]. tel:[phone] Referring Provider: Miri Amaya, [address] [place] [address] [address] [place], [address]. tel:[phone] Est Pt Eval 25 Min [facility], [address], [place], [place], [address], [place] tel:[phone] [facility] No Information 0 9 5 King AZEEM Zendejas. [address], [facility] , [place], [place], [address], [place]. tel:[phone] Referring Provider: Miri Amaya, [address] [place] [address] [address] [place], [address]. tel:[phone] [facility], [address], [place], [place], [address], [place] tel:[phone] [facility] No Information 5 Herminia Swapna. [address], [place], [place], [address], [place]. tel:[phone] Referring Provider: Miri Amaya, [address] [place] [address] [address] [place] [facility] [place], [place], [address]. tel:[phone] [facility], [address], [place], [place], [address], [place] tel:[phone] [facility] No Information Herminia Swapna. [address], [place], [place], [address], [place]. tel:[phone] Referring Provider: Miri Amaya, [address] [place] [address] [address] [place] [facility] [place], [place], [address]. tel:[phone] [facility], [address], [place], [place], [address], [place] tel:[phone] [facility] No Information 5 Barthold PT [place]. [address], [place], [address], [place]. tel:[phone] Referring Provider: Miri Amaya, [address] [place] [address] [address] [place], [address]. tel:[phone] Est Pt Eval 25 Min [facility], [address], [place], [place], [address], [place] tel:[phone] [facility] No Information Lazaro Zendejas. [address], [place], [place], [address], [place]. tel:[phone] Referring Provider: Miri Amaya, [address] [place] [address] [address] [place], [address]. tel:[phone] Est Pt Eval 25 Min [facility], [address], [place], [place], [address], [place] tel:[phone] [facility] No Information King AZEEM Zendejas. [address], [facility] , [place], [place], [address], [place]. tel:[phone] Referring Provider: Miri Amaya, [address] [place] [address] [address] [place] [facility] [place], [place], [address]. tel:[phone] Est Pt Eval 25 Min [facility], [address], [place], [place], [address], [place] tel:[phone] [facility] No Information King AZEEM Zendejas. [address], [facility] , [place], [place], [address], [place]. tel:[phone] Referring Provider: Miri Amaya, [address] [place] [address] [address] [place], [address]. tel:[phone] Est Pt Eval 15 Min [facility], [address], [place], [place], [address], [place] tel:[phone] [facility] No Information 5 No Information Referring Provider: Miri Amaya, [address] [place] [address] [address] [place], [address]. tel:[phone] [facility] [place], [address], [place], [address], [place] tel:[phone] [facility] No Information [facility]. [address], [place], [address], [place]. Referring Provider: Ozzie Hyman MD, [address] [place] [address] [facility], [place], [address]. tel:[phone] [facility], [facility], [address], [place], [place], [address], [place] tel:[phone] [facility] No Information Boogie Horne. [address] [place], [address] [facility], [place], [address]. tel:[phone] Referring Provider: Miri Amaya, [address] [place] [address] [address] [place], [address]. [phone] Est Pt Eval 15 Min [facility], [address], [place], [place], [address], [place] tel:[phone] [facility] No Information 5 No Information Referring Provider: Miri Amaya, [address] [place] [address] [address] [place], [address]. tel:[phone] Est Pt Eval 15 Min [facility], [address], [place], [place], [address], [place] tel:[phone] [facility] No Information No Information Referring Provider: Miri Amaya, [address] [place] [address] [address] [place], [address]. tel:[phone] Est Pt Eval 25 Min [facility], [address], [place], [place], [address], [place] tel:[phone] [facility] No Information 4 Bart Reyes. [address], [place], [address], [place]. tel:[phone] Referring Provider: Miri Amaya, [address] [place] [address] [address] [place], [address]. [phone] [facility], [address], [place], [address], [place] tel:[phone] [facility] No Information 4 Gwyn Hoffman. [address] [place], [facility], [place], [address]. tel:[phone] Referring Provider: Dalton Avila, [address] [place] [facility], [place], [address]. tel:[phone] [facility], [address], [place], [place], [address], [place] tel:[phone] [facility] No Information 4 Gwyn Hoffman. [address] [place], [facility], [place], [address]. tel:[phone] Referring Provider: Miri Amaya, [address] [place] [address] [address] [place], [address]. tel:[phone] Est Pt Eval 25 Min [facility], [address], [place], [place], [address], [place] tel:[phone] [facility] No Information 4 Vinnie Berrios. [address] [place], [address], [place]. Referring Provider: Miri Amaya, [address] [place] [address] [address] [place], [address]. [phone] [facility], [address], [place], [address], [place] tel:[phone] [facility] [place] [facility] No Information 4 Gwyn Hoffman. [address] [place], [facility], [place], [address]. tel:[phone] Referring Provider: Dalton Avila, [address] [place] [facility], [place], [address]. tel:[phone] [facility], [address], [place], [place], [address], [place] tel:[phone] [facility] No Information 4 Gwyn Hoffman. [address] [place], [facility], [place], [address]. [phone] Referring Provider: Miri Amaya, [address] [place] [address] [address] [place], [address]. tel:[phone] Est Pt Eval 25 Min [facility], [address], [place], [place], [address], [place] tel:[phone] [facility] No Information 4 Vinnie Berrios. [address] [place], [address], [place]. Referring Provider: Miri Amaya, [address] [place] [address] [address] [place], [address]. tel: [phone] [facility], [address], [place], [place], [address], [place] tel:[phone] [facility] No Information 4 Ascencion Mcelroy. [address], [place], [place], [address], [place]. tel:[phone] Referring Provider: Miri Amaya, [address] [place] [address] [address] [place], [address]. tel:[phone] Est Pt Eval 25 Min [facility], [address], [place], [place], [address], [place] tel:[phone] [facility] No Information 4 No Information Referring Provider: Miri Amaya, [address] [place] [address] [address] [place], [address]. tel: [phone] Est Pt Eval 25 Min [facility], [address], [place], [place], [address], [place] tel:[phone] [facility] No Information 4 No Information Referring Provider: Miri Amaya, [address] [place] [address] [address] [place], [address]. tel:[phone] Est Pt Eval 15 Min [facility], [address], [place], [place], [address], [place] tel:[phone] [facility] No Information 4 No Information Referring Provider: Miri Amaya, [address] [place] [address] [address] [place], [address]. tel:[phone] [facility], [address], [place], [place], [address], [place] tel:[phone] [facility] No Information No Information Referring Provider: Miri Amaya, [address] [place] [address] [address] [place], [address]. tel: [phone] Est Pt Eval 25 Min [facility], [facility], [address], [place], [place], [address], [place] tel:[phone] [facility] No Information [facility]. [address] [place], [address], [place]. Referring Provider: Miri Amaya, [address] [place] [address] [address] [place], [address]. tel:[phone] Offic/outpt E&m Estab Mod-hi 2 [facility], [facility], [address], [place], [place], [address], [place] tel:[phone] [facility] No Information Vinnie Quintanilla Yash. [address] [place] [address], [address], [place]. Referring Provider: Miri Amaya, [address] [place] [address] [address] [place], [address]. tel:[phone] [facility], [facility], [address] [facility] [address], [place], [place], [id number], [place] tel:[phone] [facility] No Information No Information Referring Provider: Miri Amaya, [address] [place] [address] [address] [place], [address]. tel:[phone] Offic/outpt E&m Estab Mod-hi 2 [place], [facility], [address] [facility], [place], [place], [id number], [place] tel:[phone] [facility] No Information 4 [facility]. [address] [place], [address], [place]. Referring Provider: Miri Amaya, [address] [place] [address] [address] [place], [address]. tel:[phone] Offic/outpt E&m Estab Mod-hi 2 [place], [facility], [address], [place], [place], [id number], [place] tel:[phone] [facility] No Information 4 [facility]. [address] [place] [address], [address], [place]. Referring Provider: Miri Amaya, [address] [place] [address] [address] [place], [address]. tel:[phone] [facility], [facility], [address] [facility] [address] [address], [place], [place], [id number], [place] tel:[phone] [facility] No Information 4 No Information Referring Provider: Miri Amaya, [address] [place] [address] [address] [place], [address]. tel:[phone] [facility], [address] [facility], [place], [place], [id number], [place] tel:[phone] [facility] No Information 4 Lazaro Zendejas. [address], [place], [place], [id number], [place]. tel:[phone] Referring Provider: Miri Amaya, [address] [place] [address] [address] [place], [address]. tel:[phone] Offic/outpt E&m New Mod-hi [address], [facility], [address], [place], [place], [address], [place] tel:[phone] [facility] No Information 4 Vinnie Berrios. [address] [facility], [place], [address], [place]. Referring Provider: Miri Amaya, [address] [place], [address]. tel:[phone] Family History Family Member Type Diagnosis Age At Onset N/A Problem (finding) No Significant Family H istory Payers Payer name Insurance type Covered republican ID Authoriza tion(s) [employer] Medicare PPO 16 [id number] Social History Type Description Quantity Date Captured Comments Alcohol Use Details 2 drinks weekly Caffeine Use Details coffee 3 cups per day Tobacco Use Status Smoking Status Heavy tobacco smoker Sex Male Vital Signs Date / Time: Height Weight BMI Pulse Rate Blood Pressure Temperature Respiratory Rate Body Surface Area Head Circumference Head Circ. Percentile Wt./Parrish. Percentile BMI percentile Pulse Ox Inhaled Ox 9:22 AM 73 /min 132/75 mm[Hg] 16 /min 92 % Chief Complaint And Reason For Visit No Information Reason For Referral Reason For Referral No Information Plan Of Treatment Date Type Action Status Goal Tobacco cessation counseling completed History Of Present Illness Encounter Date Complaint History Of Prese nt Illness No Information Functional Status Date Functional Assessmen t No Information Instructions Date Instruction Additional Infor mation Epidural Steroid Injection Cervi ondina education Assessments Type Assessment Date No Information Patient Care Teams Name Effective Dates (start - stop) Status Members No Information
--- OUTSIDE RECORDS SUMMARY | 2023-02-04 11:32 | XMS_ITS | Continuity of Care Document ---
Author Name Unknown Organization 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 [address] [place] [address], [place], [id number]. tel: [phone] [facility], [address] [place], [place] [address], [place], [id number] tel:[phone] [facility] Epigastric Pain (chief complaint)H x H-pylori (chief complaint) Abdominal Pain, EpigastricDyspepsi aChronic Gastritis 1 Bob Hacnock. [address] [place] [address], [place], [id number]. tel: [phone] [facility], [address] [place] [address] [place], [place], [id number] tel:[phone] [facility] No Information 1 Bob Hancock. [address] [place] [address], [place], [address]. tel: [phone] [facility], [address] [place] [address] [place], [place], [id number] tel:[phone] [facility] No Information 1 Bob Hancock. [address] [place] [address], [place], [address]. tel: [phone] Family History Family Member Type Diagnosis Age At Onset Father Problem (finding) Father Problem (finding) pulmonary emphysema (Ca use Of ) Sister Problem (finding) Lymphoma Payers Payer name Insurance type Covered constitution party ID Authorracheal garcia(s) Medicare [id number] Social History Type Description Quantity Date Captured [...]
--- OUTSIDE RECORDS SUMMARY | 2023-02-04 11:32 | XMS_ITS | Continuity of Care Document ---
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 [facility], [address], [address], [place], [place], [id number] , [place]. tel:[phone] Ref[facility]: [facility] [address] [place] [address], [address]. tel:[phone] Family History Family Member Type Diagnosis Age At Onset No Information Payers Payer name Insurance type Covered alliance party ID Authoriza tion(s) Hum[employer] Medicare Gold Choice S[place] MB [id number] Social History Type Description Quantity Date [...]
[2023-02-04 11:47] LABS: Basophils Percent Auto 0.1 % (0.0-3.0); Hematocrit 33.6 % (37.0-53.0); Hemoglobin* 10.6 gm/dL (13.5-17.5); Immature Granulocytes Pct Auto 0.2 %; Lactate* 1.1 mmol/L (0.5-1.9); Lymphocytes Percent Auto 6.6 % (20-44); Mean Corpuscular HGB Conc 32 gm/dL (32-36); Mean Corpuscular Hemoglobin 28 pg (26-34); Mean Corpuscular Volume 89 fL (80-100); Neutrophils Percent Auto 84.1 % (42.0-72.0); Platelet Count* 224 K/uL (140-440); Red Blood Count 3.78 m/uL (4.30-5.90); White Blood Count* 14.63 K/uL (4.50-11.00)
[2023-02-04 11:48] LABS: Slide Review Reflex No
[2023-02-04 12:02] LABS: Chloride* 103 mmol/L (96-114); Potassium* 4.3 mmol/L (3.6-5.1); Sodium* 134 mmol/L (135-149)
[2023-02-04 12:04] LABS: Creatinine* 1.1 mg/dL (0.5-1.5); Est. Creatinine Clearance* 66.42; Estimated Glomerular Filt Rate 70 ml/min
[2023-02-04 12:05] LABS: Anion Gap 10 mEq/L (7-15); Blood Urea Nitrogen* 37 mg/dL (7-30); Calcium* 9.6 mg/dL (8.4-10.6); Carbon Dioxide* 21 mmol/L (20-32); Glucose* 116 mg/dL (60-115)
[2023-02-04 12:15] LABS: D Dimer Quantitative* 6.64 ug/ml (0.00-0.50); NT Pro B Type NatriureticPept* 1710 pg/mL
[2023-02-04 12:28] LABS: PCR FLU A Negative PCR FLU A (Negative); PCR FLU B Negative PCR FLU B (Negative); PCR RSV Negative PCR RSV (Negative)
[2023-02-04 12:30] LABS: SARS PCR* Negative SARS-CoV-2 (Negative)
[2023-02-04] MEDS: 0.9 % SODIUM CHLORIDE 1000 ml 1,000 ML IV ×2 (12:33→14:43)
[2023-02-04 13:22] LABS: Appearance Urine Cloudy (Clear); Bilirubin Urine 1+ (Negative); Blood Urine 1+ (Negative); Color Urine Yellow (Yellow); Glucose Urine Negative (Negative); Ketones Urine Trace (Negative); Leukocyte Esterase Urine Negative (Negative); Nitrite Urine Negative (Negative); Protein Urine 2+ (Negative); Urobilinogen Urine 0.2 (0.2-1.0)
[2023-02-04 13:32] LABS: Bacteria Urine Few; Squamous Epithelial Cell Urine Moderate (None-Few)
[2023-02-04 13:33] LABS: Amorphous Sediment Urine Many
[2023-02-04] MEDS: HEPARIN 5,000 UNIT/0.5 ML INJ 7600 UNIT IVP (14:24)
[2023-02-04] MEDS: HEPARIN 25,000 UNIT/500 ML BAG 20 UNIT IV (14:24)
--- NOTE | 2023-02-04 14:28 | ED.NURSE ---
patient resides at [facility] and updated [place] nurse manager of medical at the facility able to reach at this phone number [phone]
[2023-02-04] MEDS: PIPERACILLIN/TAZOBACTAM 3.375 GM in 0.9 % SODIUM CHLORIDE Mini-bag 100 ML IVPB ×2 (14:30→20:35)
--- NOTE | 2023-02-04 15:43 | CRLHL7_ITS ---
For Patients: As a result of the Century Cures Act, medical imaging exams and procedure reports are released immediately into your electronic medical record. You may view this report before your referring provider. If you have questions, please contact your health care provider. INDICATION: Pulmonary embolus, recent left hip surgery TECHNIQUE: Ultrasound venous duplex lower left extremity. Compression venous exam was performed using alston-scale, color Doppler, and spectral Doppler analysis. COMPARISON: None. FINDINGS: Left common femoral vein shows normal compression and waveforms. Left greater saphenous and deep femoral veins show normal compression. At the left femoral vein there is partially occlusive thrombus proximally extending into the midportion. Left popliteal, peroneal, posterior tibial and right common femoral vein show normal compression. Mildly complex, avascular cystic area in the left popliteal fossa measuring 5.0 x 2.0 x 3.7 centimeters. IMPRESSION: 1. Acute partially occlusive deep venous thrombosis involving the left femoral vein. 2. Left Mahoney`s cyst. Dictated by Roe Arenas MD @ 02/04/2023 5:01:48 PM (Electronically Signed)
[2023-02-04 16:26] LABS: Prothrombin Time 16.2 Seconds
[2023-02-04 16:40] LABS: INR 1.22 (0.91-1.10); Partial Thromboplastin Time* 38 Seconds (23-33)
[2023-02-04 16:45] LABS: Magnesium* 2.5 mg/dL (1.5-2.6)
--- NOTE | 2023-02-04 16:50 | P.IMHP_ITS ---
Hospitalist- H&P: HPI History of Present Illness Date Seen: 02/04/23 Chief complaint: Pneumonia Narrative: Butch Nieves III is a 77 year old male status post elective left total hip arthroplasty 14 days ago who presents with bilateral flank pain, abdominal pain, shortness of breath for approximately 1 week. Patient underwent an uncomplicated left total hip arthroplasty 14 days ago. He was discharged to [facility] for rehab. That was going well until about a week ago. At that time he started to have some abdominal discomfort, especially low abdominal discomfort. He also had some left knee and ankle swelling which was suspected to be gout. He became short of breath as well. Yesterday they did a bladder scan which showed 1375 mL of retained urine in his bladder. He had a straight catheter placed but had recurrent problems with emptying his bladder today. He became quite short of breath in the last couple days. Is transferred to the emergency room for evaluation. In the emergency room he was found to have a large burden of bilateral pulmonary emboli as well as a left basilar infiltrate suggestive of pneumonia. He was hypoxic, tachycardic, hypotensive. He received fluid resuscitation. He was started on antibiotics with Zosyn and heparin. I spoke to music therapist [employer], Aashish Wolfe, at [facility] about whether or not he should be given thrombolytics or heparin. They have no beds available at this time and indicated that we could continue to evaluate and treat him here and if he had any deterioration we could call back for interventional radiology doing thrombolysis. Review of Systems Narrative: Patient reports that associated with this past week of illness he has had a poor appetite he has not been able to do his therapy he has had ongoing difficulties with urination. He reports his pain in his hip is fairly well controlled. He is walking with standby assistance with a walker. He feels like the recovery from his hip is going well but this current illness is setting him back. He reports no constipation but has had some loose stools. He is not aware of any fever. [facility] Medical History (Updated 02/04/23 @ 17:10 by Nikolay Alvarez MD) Urinary retention ?R33.9 - Retention of urine, unspecified (ICD-10) Osteoarthritis of left hip ?M16.12 - Unilateral primary osteoarthritis, left hip (ICD-10) TMJ (temporomandibular joint syndrome) ?M26.609 - Unspecified temporomandibular joint disorder, unspecified side (ICD-10) Lumbar degenerative disc disease ?M51.36 - Other intervertebral disc degeneration, lumbar region (ICD-10) Low back pain ?M54.50 - Low back pain, unspecified (ICD-10) COPD (chronic obstructive pulmonary disease) ?J44.9 - Chronic obstructive pulmonary disease, unspecified (ICD-10) Chronic low back pain ?M54.50 - Low back pain, unspecified (ICD-10) ?G89.29 - Other chronic pain (ICD-10) Right shoulder pain ?M25.511 - Pain in right shoulder (ICD-10) Lesion of right external ear ?H61.91 - Disorder of right external ear, unspecified (ICD-10) Thrush, oral ?B37.0 - Candidal stomatitis (ICD-10) Insomnia ?G47.00 - Insomnia, unspecified (ICD-10) Anemia ?D64.9 - Anemia, unspecified (ICD-10) Gout ?M10.9 - Gout, unspecified (ICD-10) Angina at rest ?I20.8 - Other forms of angina pectoris (ICD-10) Hypertension ?I10 - Essential (primary) hypertension (ICD-10) Seasonal allergic rhinitis ?J30.2 - Other seasonal allergic rhinitis (ICD-10) Peripheral vascular disease ?I73.9 - Peripheral vascular disease, unspecified (ICD-10) Obstructive sleep apnea treated with continuous positive airway pressure (CPAP) ?G47.33 - Obstructive sleep apnea (adult) (pediatric) (ICD-10) ?Z99.89 - Dependence on other enabling machines and devices (ICD-10) Monoclonal gammopathy ?D47.2 - Monoclonal gammopathy (ICD-10) Hyperlipidemia ?E78.5 - Hyperlipidemia, unspecified (ICD-10) History of malignant neoplasm of skin ?Z85.828 - Personal history of other malignant neoplasm of skin (ICD-10) History of depression ?Z86.59 - Personal history of other mental and behavioral disorders (ICD-10) History of calcium pyrophosphate deposition disease (CPPD) ?Z87.39 - Personal history of other diseases of the musculoskeletal system and connective tissue (ICD-10) History of adenomatous polyp of colon (02/12/18) ?Z86.010 - Personal history of colonic polyps (ICD-10) Gastroesophageal reflux disease ?K21.9 - Gastro-esophageal reflux disease without esophagitis (ICD-10) Enlarged prostate ?N40.0 - Benign prostatic hyperplasia without lower urinary tract symptoms (ICD-10) Coronary artery disease ?I25.10 - Atherosclerotic heart disease of [place] coronary artery without angina pectoris (ICD-10) Congestive heart failure ?I50.9 - Heart failure, unspecified (ICD-10) Chronic, continuous use of opioids ?F11.90 - Opioid use, unspecified, uncomplicated (ICD-10) Chronic right shoulder pain (2018) ?M25.511 - Pain in right shoulder (ICD-10) ?G89.29 - Other chronic pain (ICD-10) Chronic pancreatitis ?K86.1 - Other chronic pancreatitis (ICD-10) Chronic obstructive pulmonary disease ?J44.9 - Chronic obstructive pulmonary disease, unspecified (ICD-10) Chronic neck pain ?M54.2 - Cervicalgia (ICD-10) ?G89.29 - Other chronic pain (ICD-10) Carpal tunnel syndrome of right wrist ?G56.01 - Carpal tunnel syndrome, right upper limb (ICD-10) Aortic aneurysm ?I71.9 - Aortic aneurysm of unspecified site, without rupture (ICD-10) Hyperthyroidism ?E05.90 - Thyrotoxicosis, unspecified without thyrotoxic crisis or storm (ICD-10) Surgical History History of total left hip replacement (01/21/23) ?Z96.642 - Presence of left artificial hip joint (ICD-10) H/O excision of ganglion cyst (04/25/22) ?Z98.890 - Other specified postprocedural states (ICD-10) History of carpal tunnel surgery of left wrist (04/25/22) ?Z98.890 - Other specified postprocedural states (ICD-10) Status post coronary angiogram ?Z98.890 - Other specified postprocedural states (ICD-10) History of carpal tunnel surgery of right wrist (11/30/20) ?Z98.890 - Other specified postprocedural states (ICD-10) S/P cubital tunnel release (11/30/20) ?Z98.890 - Other specified postprocedural states (ICD-10) Status post six vessel coronary artery bypass graft (1996) ?Z95.1 - Presence of aortocoronary bypass graft (ICD-10) History of umbilical hernia repair (04/16/13) ?Z98.890 - Other specified postprocedural states (ICD-10) ?Z87.19 - Personal history of other diseases of the digestive system (ICD-10) History of spinal surgery ?Z98.890 - Other specified postprocedural states (ICD-10) History of rotator cuff surgery (2007) ?Z98.890 - Other specified postprocedural states (ICD-10) History of operative procedure on hip (04/01/18) ?Z98.890 - Other specified postprocedural states (ICD-10) History of endarterectomy (2012) ?Z98.890 - Other specified postprocedural states (ICD-10) History of colonoscopy with polypectomy ?Z98.890 - Other specified postprocedural states (ICD-10) ?Z86.010 - Personal history of colonic polyps (ICD-10) History of cholecystectomy ?Z90.49 - Acquired absence of other specified parts of digestive tract (ICD- 10) History of carpal tunnel surgery of left wrist (2007) ?Z98.890 - Other specified postprocedural states (ICD-10) History of appendectomy ?Z90.49 - Acquired absence of other specified parts of digestive tract (ICD- 10) History of aortic aneurysm repair (2012) ?Z98.890 - Other specified postprocedural states (ICD-10) ?Z86.79 - Personal history of other diseases of the circulatory system (ICD- 10) Family History Father Asthma Sister Asthma Breast cancer Lung cancer Mother Dementia Rheumatoid arthritis Social History (Updated 02/04/23 @ 16:58 by Nikolay Alvarez MD) Narrative: , five daughters, does not use illicit drugs, nonsmoker. Occasional alcohol. History of some cannabis use but not recently and not regularly. Lives in [facility]. He has been in [facility] for the last 2 weeks for rehab following his hip surgery. What is your current living situation?: I presently have a place to live In the past 12 months, utilities in danger of being shut off: no In past 12 months, lack of transportation kept you from medical appts, meetings, work, or getting things needed for daily living: no In the past 12 mos, have been you worried that your food would run out before you had money to buy more?: never true In the past 12 mos, the food you bought just didn't last and you didn't have money to buy more?: never true Smoking Status: Former smoker Do you use any of these nicotine containing products: None Second hand tobacco smoke exposure: No How often do you have a drink containing alcohol: monthly or less How many standard drinks containing alcohol do you have on a typical day: 3 or 4 How often do you have six or more drinks on one occasion: Less than monthly AUDIT-C Alcohol total score: 3 Non-prescribed substance use: denies use Non-prescribed substance use details: was trying THC gummies but not effective and hasn't had them in a while. Caffeine: No How often does anyone, including family, friends and others, physically hurt you : never How often does anyone, including family, friends and others, insult or talk down to you: never How often does anyone, including family, friends and others, threaten you with harm: never How often does anyone, including family, friends and others, scream or curse at you: never Little interest or pleasure in doing things: more than half the days Feeling down, depressed, or hopeless: several days service: No Meds Home Medications and Allergies Home Medications Medication Instructions Recorded Confirmed Type metoprolol succinate 100 mg 100 mg PO DAILY 10/11/21 02/04/23 History tablet,extended release 24 hr acetaminophen 500 mg tablet 1,000 mg PO Q6H 11/09/21 02/04/23 History fexofenadine 180 mg tablet 180 mg PO DAILY 11/10/21 02/04/23 History (Joanna Allergy) melatonin 5 mg capsule 10 mg PO HS PRN 11/10/21 02/04/23 History cpap 01/17/22 01/09/23 History clopidogrel 75 mg tablet 75 mg PO DAILY 04/18/22 02/04/23 History famotidine 20 mg tablet 20 mg PO DAILY 01/09/23 02/04/23 History cholecalciferol (vitamin D3) 25 50 mcg PO DAILY 01/21/23 02/04/23 History mcg (1,000 unit) chewable tablet (Vitamin D3) cyanocobalamin (vitamin B-12) 1,000 mcg PO DAILY Anemia 01/21/23 02/04/23 History 1,000 mcg tablet losartan 25 mg tablet 25 mg PO DAILY Hypertension 01/21/23 02/04/23 History roflumilast 500 mcg tablet 500 mcg PO DAILY Anemia 01/21/23 02/04/23 History (Daliresp) tiotropium bromide 18 mcg capsule 1 cap inhalation DAILY COPD 01/21/23 02/04/23 History with inhalation device (Spiriva with HandiHaler) ipratropium bromide 21 mcg (0.03 2 spray intranasal TID PRN allergy 02/04/23 02/04/23 History %) nasal spray symptoms methimazole 5 mg tablet 5 mg PO DAILY 02/04/23 02/04/23 History nitroglycerin 0.4 mg sublingual 0.4 mg sublingual Q5-15M PRN Angina 02/04/23 02/04/23 History tablet oxycodone 5 mg tablet 5 mg PO BID pain 02/04/23 02/04/23 History sennosides 8.6 mg-docusate sodium 2 tab-cap PO DAILY PRN constipation 02/04/23 02/04/23 History 50 mg tablet (Senna-S) Allergies Allergy/AdvReac Type Severity Reaction Status Date / Time bupropion Allergy Unknown tinnitus Verified 01/21/23 06:25 isosorbide Allergy Unknown Headache Verified 01/21/23 06:25 spironolactone Allergy Unknown gynecomasti Verified 01/21/23 06:25 a topiramate Allergy Unknown doses Verified 01/21/23 06:25 higher than 50 daily not tolerated venlafaxine Allergy Unknown Anxiety Verified 01/21/23 06:25 Exam Narrative: Exam Narrative: He is alert and oriented. Mildly dyspneic at rest. He is able to give his own history with good detail. No apparent cognitive impairment, mental slowing or confusion. Oropharynx is normal. Neck is supple without mass or adenopathy. Respirations are clear to auscultation except for rare basilar crackle. There is no wheezing. Cardiovascular: S1, S2, regular tachycardia. No murmur gallop or rub. Abdomen: Bowel sounds active. Abdomen is soft. He has mild diffuse tenderness. Extremities 2+ to 3+ edema in the left lower extremity and no edema in the right lower extremity. Const: Vital Signs, click to edit/add: Vital Signs - 24 hr 02/04/23 10:57 02/04/23 11:06 02/04/23 11:47 Temperature 100.6 F H Pulse Rate 133 H Pulse Rate [Pulse Oximeter] 132 H Respiratory Rate 18 Blood Pressure Blood Pressure [Ri ght Upper Arm] 105/58 L Pulse Oximetry 85 L 92 94 Oxygen Delivery Me thod Room Air Nasal Cannula Oxygen Flow Rate 6 02/04/23 12:00 02/04/23 12:02 02/04/23 12:03 Temperature Pulse Rate 133 H 134 H 135 H Pulse Rate [Pulse Oximeter] Respiratory Rate Blood Pressure 82/57 L Blood Pressure [Ri ght Upper Arm] Pulse Oximetry 93 93 93 Oxygen Delivery Me thod Oxygen Flow Rate 02/04/23 12:23 02/04/23 12:24 02/04/23 12:30 Temperature Pulse Rate 129 H 127 H 136 H Pulse Rate [Pulse Oximeter] Respiratory Rate Blood Pressure 87/58 L Blood Pressure [Ri ght Upper Arm] Pulse Oximetry 92 92 93 Oxygen Delivery Me thod Oxygen Flow Rate 02/04/23 12:32 02/04/23 12:33 02/04/23 12:45 Temperature Pulse Rate 129 H 130 H 129 H Pulse Rate [Pulse Oximeter] Respiratory Rate Blood Pressure 104/59 L Blood Pressure [Ri ght Upper Arm] Pulse Oximetry 92 93 95 Oxygen Delivery Me thod Oxygen Flow Rate 02/04/23 13:00 02/04/23 13:02 02/04/23 13:15 Temperature Pulse Rate 128 H 129 H 130 H Pulse Rate [Pulse Oximeter] Respiratory Rate Blood Pressure 98/58 L Blood Pressure [Ri ght Upper Arm] Pulse Oximetry 95 94 94 Oxygen Delivery Me thod Oxygen Flow Rate 02/04/23 13:30 02/04/23 13:32 02/04/23 13:45 Temperature Pulse Rate 130 H 131 H 132 H Pulse Rate [Pulse Oximeter] Respiratory Rate Blood Pressure 109/65 Blood Pressure [Ri ght Upper Arm] Pulse Oximetry 96 96 96 Oxygen Delivery Me thod Oxygen Flow Rate 02/04/23 14:10 02/04/23 14:11 02/04/23 14:15 Temperature Pulse Rate 135 H 132 H 130 H Pulse Rate [Pulse Oximeter] Respiratory Rate Blood Pressure 84/57 L Blood Pressure [Ri ght Upper Arm] Pulse Oximetry 93 92 84 L Oxygen Delivery Me thod Oxygen Flow Rate 02/04/23 14:21 02/04/23 14:23 02/04/23 14:24 Temperature Pulse Rate 133 H 132 H Pulse Rate [Pulse Oximeter] Respiratory Rate Blood Pressure 80/67 L 104/68 Blood Pressure [Ri ght Upper Arm] Pulse Oximetry 94 93 93 Oxygen Delivery Me thod Oxygen Flow Rate 02/04/23 14:30 02/04/23 14:32 02/04/23 14:45 Temperature Pulse Rate 128 H 129 H 118 H Pulse Rate [Pulse Oximeter] Respiratory Rate Blood Pressure 92/59 L Blood Pressure [Ri ght Upper Arm] Pulse Oximetry 96 95 94 Oxygen Delivery Me thod Oxygen Flow Rate 02/04/23 15:00 02/04/23 15:02 02/04/23 15:15 Temperature Pulse Rate 127 H 117 H 108 H Pulse Rate [Pulse Oximeter] Respiratory Rate Blood Pressure 102/63 Blood Pressure [Ri ght Upper Arm] Pulse Oximetry 97 98 98 Oxygen Delivery Me thod Oxygen Flow Rate 02/04/23 15:30 02/04/23 15:32 Temperature Pulse Rate 115 H 113 H Pulse Rate [Pulse Oximeter] Respiratory Rate Blood Pressure 108/71 Blood Pressure [Ri ght Upper Arm] Pulse Oximetry 97 96 Oxygen Delivery Me thod Oxygen Flow Rate Documenting provider has reviewed patient's vital signs: yes Hospitalist - H&P: Result Labs Labs: Short CBC 02/04/23 Range/Units 11:35 WBC 14.63 H (4.50-11.00) K/uL Hgb 10.6 L (13.5-17.5) gm/dL Hct 33.6 L (37.0-53.0) % Plt Count 224 (140-440) K/uL BMP 02/04/23 11:35 Sodium 134 L Potassium 4.3 Chloride 103 Carbon Dioxide 21 BUN 37 H Creatinine 1.1 Glucose 116 H Calcium 9.6 Urine 02/04/23 Range/Units 13:03 Urine Color Yellow (Yellow) Urine Appearance Cloudy A (Clear) Urine pH 5.0 (5.0-8.5) Ur Specific [place] 1.020 (1.000-1.030) Urine Protein 2+ A (Negative) Urine Glucose (UA) Negative (Negative) Imaging CT Chest/Ab/Pelvis: Radiologist's impression: INDICATION: .SOB, ABD PAIN, RECENT HIP SURGERY (2 WEEKS) TECHNIQUE: CT chest PE and abdomen pelvis was acquired with 95 cc Isovue 370 IV contrast. COMPARISON: July 2022 FINDINGS: Pulmonary Arteries: Bilateral acute PE extending from the main pulmonary arteries distally into the segmental and subsegmental pulmonary arteries bilaterally, large clot burden. No pulmonary artery hypertension. Questionable right heart strain. Heart and Mediastinum: The visualized portions of the thyroid are normal. No axillary or supraclavicular lymphadenopathy. No mediastinal, hilar or retrocrural lymphadenopathy. Normal heart size. Normal caliber aorta. Atherosclerotic calcifications of the aorta and its branches. Coronary artery calcifications. Mitral annular calcifications. Lungs and Airways: Left lower lobe dependent consolidation. Right lower lobe linear atelectasis. Left lower lobe areas of endobronchial mucous plugging. Retained tracheal secretions. Pleura: Small left pleural effusion. Abdomen: Normal enhancement of the liver. Calcified hepatic granuloma. Cholecystectomy. Normal caliber bowel ducts. Normal enhancement of the spleen. Normal enhancement of the pancreas. Punctate calcifications within the pancreatic body likely reflecting sequela of chronic pancreatitis. Normal adrenal glands. Normal enhancement of the kidneys with subcentimeter hypodensities that are too small to characterize however statistically represent cysts. No hydroureteronephrosis. Stomach is relatively decompressed. Normal caliber small and large bowel loops. Appendix is not definitively visualized. Infrarenal abdominal aortic aneurysm with aorto bi-iliac stent graft. Atherosclerotic calcifications. No lymphadenopathy by size criteria. Urinary bladder is decompressed. Normal size prostate. Calcified vas deferens suggesting underlying diabetes. Bones and soft tissues: Thoracic spondylosis. Sternotomy wires. Changes of lumbar fixation hardware. Left hip arthroplasty. Right hip joint arthrosis. Grade 2 anterolisthesis of L4 on L5. 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 IMPRESSION: 1. Bilateral acute PE extending from the main pulmonary arteries distally into the segmental and subsegmental pulmonary arteries bilaterally, large clot burden. No pulmonary artery hypertension. Questionable right heart strain. 2. Left lower lobe dependent consolidation with small left pleural effusion. Right lower lobe linear atelectasis. Left lower lobe areas of endobronchial mucous plugging. Retained tracheal secretions. Constellation of findings favor aspiration/pneumonia. INDICATION: .SOB, ABD PAIN, RECENT HIP SURGERY (2 WEEKS) TECHNIQUE: CT chest PE and abdomen pelvis was acquired with 95 cc Isovue 370 IV contrast. COMPARISON: July 2022 FINDINGS: Pulmonary Arteries: Bilateral acute PE extending from the main pulmonary arteries distally into the segmental and subsegmental pulmonary arteries bilaterally, large clot burden. No pulmonary artery hypertension. Questionable right heart strain. Heart and Mediastinum: The visualized portions of the thyroid are normal. No axillary or supraclavicular lymphadenopathy. No mediastinal, hilar or retrocrural lymphadenopathy. Normal heart size. Normal caliber aorta. Atherosclerotic calcifications of the aorta and its branches. Coronary artery calcifications. Mitral annular calcifications. Lungs and Airways: Left lower lobe dependent consolidation. Right lower lobe linear atelectasis. Left lower lobe areas of endobronchial mucous plugging. Retained tracheal secretions. Pleura: Small left pleural effusion. Abdomen: Normal enhancement of the liver. Calcified hepatic granuloma. Cholecystectomy. Normal caliber bowel ducts. Normal enhancement of the spleen. Normal enhancement of the pancreas. Punctate calcifications within the pancreatic body likely reflecting sequela of chronic pancreatitis. Normal adrenal glands. Normal enhancement of the kidneys with subcentimeter hypodensities that are too small to characterize however statistically represent cysts. No hydroureteronephrosis. Stomach is relatively decompressed. Normal caliber small and large bowel loops. Appendix is not definitively visualized. Infrarenal abdominal aortic aneurysm with aorto bi-iliac stent graft. Atherosclerotic calcifications. No lymphadenopathy by size criteria. Urinary bladder is decompressed. Normal size prostate. Calcified vas deferens suggesting underlying diabetes. Bones and soft tissues: Thoracic spondylosis. Sternotomy wires. Changes of lumbar fixation hardware. Left hip arthroplasty. Right hip joint arthrosis. Grade 2 anterolisthesis of L4 on L5. 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 IMPRESSION: 1. Bilateral acute PE extending from the main pulmonary arteries distally into the segmental and subsegmental pulmonary arteries bilaterally, large clot burden. No pulmonary artery hypertension. Questionable right heart strain. 2. Left lower lobe dependent consolidation with small left pleural effusion. Right lower lobe linear atelectasis. Left lower lobe areas of endobronchial mucous plugging. Retained tracheal secretions. Constellation of findings favor aspiration/pneumonia. Assessment and Plan Assessment and plan (1) Sepsis with acute hypoxic respiratory failure: Problem comment: Patient presents with abnormal vitals consistent with sepsis with hypoxic respiratory failure. I believe the primary problem is large burden of pulmonary emboli with secondary issues including pneumonia. Patient will be managed here on IV heparin unless there is deterioration in his status at which point we will attempt transfer to [facility] for Interventional Radiology. Discussed with Dr. Aashish Wolfe, music therapist public [employer] at [place] Status: Acute (2) Pulmonary embolism: Problem comment: Causing hypoxia, tachycardia, hypertension. Obtain echo and follow. If deteriorating will need transfer for Interventional Radiology thrombolytics Status: Acute (3) Pneumonia: Problem comment: Zosyn. Infiltrates could be pulmonary infarcts as well Status: Acute (4) Urinary retention: Problem comment: Place Serrato catheter for now Status: Acute (5) Chronic obstructive pulmonary disease: Problem comment: Underlying COPD. Does not appear to being exacerbation at this time Status: Chronic (6) Hypertension: Problem comment: Hold antihypertensives for now Status: Chronic Plan Patient is admitted to CCU for management of septic shock and hypoxia, pulmonary embolism and pneumonia. Total time spent today is 110 minutes in critical care evaluation and management
[2023-02-04] MEDS: PERFLUTREN LIPID MICROSPHERES 2 ML VIAL IV (17:12)
--- NOTE | 2023-02-04 17:36 | RESP.RT ---
Pt assessed. SPO2 88% on 1l, He is somewhat Short of breathe, just finished Echo. Increased oxygen to 2L. Started aerobika, did well with it. Strong productive cough for thick yellow sputum. Noted his BP was soft, MD noted, and notified nurse. BBS clear after aerobika. continue with Aerobika every 2 hours. Continue with home COPD meds.
[2023-02-04] MEDS: LACTATED RINGERS 1000 ML 1,000 ML 125 ML IV (17:37)
[2023-02-04] MEDS: LACTATED RINGERS 500 ML 500 ML IV (17:38)
[2023-02-04] MEDS: PANTOPRAZOLE SODIUM 40 MG INJ IVP (17:43)
[2023-02-04] MEDS: DIGOXIN 250 MCG/ML inj IV (20:33)
[2023-02-04] MEDS: SODIUM CHLORIDE 0.9 % (FLUSH) 10 ML SYRINGE 5 ML IVF (20:34)
[2023-02-04 20:49] LABS: INR 1.26 (0.91-1.10); Prothrombin Time 16.6 Seconds
[2023-02-04 20:51] LABS: Partial Thromboplastin Time* 88 Seconds (23-33)
[2023-02-04 20:54] LABS: S pneumo Ag Urine S. pneumo Negative (Negative)
[2023-02-04 20:55] LABS: Legionella pneumo Ag Urine L. pneumo Negative (Negative)
[2023-02-04 21:02] LABS: Troponin I* 0.03 ng/mL (0.01-0.04)
[2023-02-05] VITALS (21 sets, daily range): BP systolic 89–135; BP diastolic 55–76; PULSE 77–140; RESP 18–26; TEMP 36.6–38.7; O2SAT 87–94
[2023-02-05] MEDS: LACTATED RINGERS 1000 ML 1,000 ML 125 ML IV ×2 (01:58→09:31)
[2023-02-05] MEDS: DIGOXIN 250 MCG/ML inj 125 MCG IV (02:34)
[2023-02-05] MEDS: PIPERACILLIN/TAZOBACTAM 3.375 GM in 0.9 % SODIUM CHLORIDE Mini-bag 100 ML IVPB ×4 (02:35→20:01)
[2023-02-05 04:27] LABS: HCO3 VBG 23 mmol/L (21-28); PCO2 VBG 38 mmHG (40-50); PO2 VBG 45.6 mmHG (25-47); pH VBG 7.394 (7.32-7.43)
[2023-02-05 04:30] LABS: Basophils Absolute Auto 0.01 K/uL (0.00-0.30); Basophils Percent Auto 0.1 % (0.0-3.0); Eosinophils Absolute Auto 0.09 K/uL (0.00-0.50); Eosinophils Percent Auto 0.9 % (0.0-7.0); Hematocrit 30.9 % (37.0-53.0); Hemoglobin* 9.8 gm/dL (13.5-17.5); Immature Granulocytes Abs Auto 0.02 K/uL (0.00-0.30); Immature Granulocytes Pct Auto 0.2 %; Lymphocytes Percent Auto 11.7 % (20-44); Mean Corpuscular HGB Conc 32 gm/dL (32-36); Mean Corpuscular Hemoglobin 28 pg (26-34); Mean Corpuscular Volume 89 fL (80-100); Monocytes Percent Auto 8.7 % (0.0-11.0); Neutrophils Percent Auto 78.4 % (42.0-72.0); Platelet Count* 222 K/uL (140-440); RDW Coefficient of Variation % 13.2 % (11.5-15.5); Red Blood Count 3.46 m/uL (4.30-5.90); Slide Review Reflex No; White Blood Count* 9.89 K/uL (4.50-11.00)
[2023-02-05 04:42] LABS: Chloride* 104 mmol/L (96-114); Sodium* 136 mmol/L (135-149)
[2023-02-05 04:43] LABS: Potassium* 3.9 mmol/L (3.6-5.1)
[2023-02-05 04:45] LABS: Creatinine* 0.8 mg/dL (0.5-1.5); Est. Creatinine Clearance* 73.07; Estimated Glomerular Filt Rate 92 ml/min
[2023-02-05 04:46] LABS: Anion Gap 10 mEq/L (7-15); Blood Urea Nitrogen* 27 mg/dL (7-30); Calcium* 9.1 mg/dL (8.4-10.6); Carbon Dioxide* 22 mmol/L (20-32); Glucose* 107 mg/dL (60-115); Partial Thromboplastin Time* 57 Seconds (23-33)
[2023-02-05 05:13] LABS: C Reactive Protein* 36.8 mg/dL (0.5-1.0)
[2023-02-05] MEDS: ACETAMINOPHEN 325 MG TABLET 650 MG PO ×2 (05:31→17:39)
[2023-02-05] MEDS: DIGOXIN 250 MCG/ML inj IV (07:45)
[2023-02-05] MEDS: SODIUM CHLORIDE 0.9 % (FLUSH) 10 ML SYRINGE 5 ML IVF ×2 (07:46→20:06)
[2023-02-05] MEDS: METOPROLOL TARTRATE 1 MG/ML inj 5 MG IVP ×2 (08:48→18:20)
--- NOTE | 2023-02-05 08:54 | REH.OT ---
PT/OT orders for eval and treat. Per MD, patient is not appropriate for therapies today due to medical status. He may transfer for a higher level of care. Will assess as able when medically stable.
[2023-02-05] MEDS: methIMAzole 5 MG TABLET PO (09:29)
[2023-02-05] MEDS: METOPROLOL TARTRATE 25 MG TABLET PO ×3 (09:44→20:31)
[2023-02-05 11:18] LABS: Partial Thromboplastin Time* 50 Seconds (23-33)
[2023-02-05] MEDS: HEPARIN 5,000 UNIT/0.5 ML INJ 2900 UNIT IVP ×2 (13:03→22:00)
--- NOTE | 2023-02-05 15:04 | PM.IMPN1 ---
Progress Note: A&P Assessment and plan (1) Sepsis with acute hypoxic respiratory failure: Problem details: Patient presents with abnormal vitals consistent with sepsis with hypoxic respiratory failure. I believe the primary problem is large burden of pulmonary emboli with secondary issues including pneumonia. Patient will be managed here on IV heparin unless there is deterioration in his status at which point we will attempt transfer to [facility] for Interventional Radiology. Discussed with Dr. Aashish Wolfe, cable tool operator at [place] Status: Acute (2) Pulmonary embolism: Problem details: Day 1, clinically improved with hypotension, hypoxia, tachycardia all improving Causing hypoxia, tachycardia, hypertension. Obtain echo and follow. If deteriorating will need transfer for Interventional Radiology thrombolytics Status: Acute (3) Urinary retention: Problem details: Place Serrato catheter for now Status: Acute (4) Pneumonia: Problem details: Zosyn. Infiltrates could be pulmonary infarcts as well Status: Acute (5) History of total left hip replacement: Problem details: Left total hip arthroplasty-anterior approach (Dr. Adams) Status: Acute (6) Chronic obstructive pulmonary disease: Problem details: Underlying COPD. Does not appear to being exacerbation at this time Status: Chronic (7) Congestive heart failure: Problem details: Caution with fluid resuscitation. Status: Chronic (8) Atrial fibrillation with RVR: Problem details: Rate control with digoxin and metoprolol and anticoagulation Status: Acute (9) Bilateral flank pain: Problem details: I suspect this is likely from pulmonary infarcts. No other obvious cause for this. Status: Acute Plan Continue in hospital for evaluation management of hypoxic respiratory failure, hypotension, tachycardia, AFib with RVR, pulmonary emboli with IV heparin, pneumonia, urinary retention. Patient has been improving during the day today and will be transferred to floor status for ongoing monitoring and management. Total time spent today is 70 minutes in critical care evaluation and management Subjective Date Seen: 02/05/23 Interval history: 77-year-old male 2 weeks status post left hip arthroplasty admitted with acute dyspnea, bilateral flank pain, left leg swelling and abdominal pain. Evaluation on the day of admission showed that he had large burden of bilateral PE, left lower lobe infiltrate consistent with pneumonia, left lower extremity DVT, urinary retention. He was hypotensive and tachycardic. Echocardiogram was obtained and showed only mild changes from prior echocardiograms with somewhat decreased right ventricular function. Discussion with cable tool operator at [facility] led to the decision that he would be observed here and continued to be treated with heparin for his pulmonary emboli but be transferred if he had any clinical deterioration. Last evening he went to a into atrial fibrillation with RVR. He was started on digoxin and had improved a rate control with this. This morning metoprolol was added. He is chronically on metoprolol 100 mg daily. With this he had improvement in his heart rate, blood pressure and hypoxia. He remains in the CCU on IV heparin, digoxin, metoprolol, Zosyn. Today he reports feeling a little better. He still gets dyspneic and tachycardic with any activity. Exam Narrative: Exam Narrative: He is alert and appears in no distress. Respirations are clear to auscultation. He has diminished breath sounds. Mildly prolonged expiratory phase. Abdomen is soft with mild diffuse tenderness. Improved from yesterday. Left lower extremity edema is improved from yesterday now at about 1 to 2+. Mild tenderness with palpation around his foot ankle and heel on the left. No redness. No skin breakdown. Hip incision is clean and dry without erythema. Const: Vital Signs, click to edit/add: Vital Signs - 24 hr 02/04/23 15:15 02/04/23 15:30 02/04/23 15:32 Temperature Pulse Rate 108 H 115 H 113 H Pulse Rate [Pulse Oximeter] Respiratory Rate Blood Pressure 108/71 Blood Pressure [Ri ght Arm] Pulse Oximetry 98 97 96 Oxygen Delivery Me thod Oxygen Flow Rate 02/04/23 15:55 02/04/23 16:30 02/04/23 17:14 Temperature 99.5 F Pulse Rate 114 H Pulse Rate [Pulse Oximeter] Respiratory Rate 20 20 Blood Pressure Blood Pressure [Ri ght Arm] 88/46 L Pulse Oximetry 92 91 Oxygen Delivery Me thod Nasal Cannula Nasal Cannula Oxygen Flow Rate 2 3 02/04/23 17:30 02/04/23 20:00 02/04/23 20:15 Temperature 99.5 F 100.3 F H Pulse Rate Pulse Rate [Pulse Oximeter] Respiratory Rate 20 20 Blood Pressure Blood Pressure [Ri ght Arm] 100/58 L 99/59 L Pulse Oximetry 91 90 90 Oxygen Delivery Me thod Nasal Cannula Nasal Cannula Nasal Cannula Oxygen Flow Rate 1 2 2 02/04/23 20:33 02/04/23 20:55 02/04/23 20:55 Temperature Pulse Rate 131 H 131 H Pulse Rate [Pulse Oximeter] Respiratory Rate Blood Pressure Blood Pressure [Ri ght Arm] Pulse Oximetry 92 Oxygen Delivery Me thod Oxygen Flow Rate 02/04/23 20:55 02/04/23 20:55 02/04/23 22:00 Temperature 99.6 F Pulse Rate Pulse Rate [Pulse Oximeter] 131 H Respiratory Rate 20 20 24 Blood Pressure Blood Pressure [Ri ght Arm] 114/62 Pulse Oximetry 92 92 Oxygen Delivery Me thod Nasal Cannula Nasal Cannula Oxygen Flow Rate 2 2 02/05/23 00:00 02/05/23 00:10 02/05/23 02:00 Temperature 100.0 F H 100.3 F H Pulse Rate 106 H Pulse Rate [Pulse Oximeter] 119 H Respiratory Rate 24 24 Blood Pressure Blood Pressure [Ri ght Arm] 111/68 129/69 Pulse Oximetry 92 88 Oxygen Delivery Me thod Nasal Cannula Nasal Cannula Oxygen Flow Rate 2 2 02/05/23 02:34 02/05/23 03:00 02/05/23 04:00 Temperature 101.3 F H Pulse Rate 119 H 106 H Pulse Rate [Pulse Oximeter] 109 H Respiratory Rate 24 Blood Pressure Blood Pressure [Ri ght Arm] 135/76 Pulse Oximetry 90 Oxygen Delivery Me thod Nasal Cannula Oxygen Flow Rate 2 02/05/23 05:31 02/05/23 06:00 02/05/23 07:06 Temperature 101.6 F H 99.9 F H Pulse Rate 133 H Pulse Rate [Pulse Oximeter] 138 H Respiratory Rate 26 H Blood Pressure Blood Pressure [Ri ght Arm] 90/61 Pulse Oximetry 87 L Oxygen Delivery Me thod Nasal Cannula Oxygen Flow Rate 2 02/05/23 07:42 02/05/23 07:45 02/05/23 07:54 Temperature 98.5 F Pulse Rate 135 H Pulse Rate [Pulse Oximeter] 135 H Respiratory Rate 20 Blood Pressure Blood Pressure [Ri ght Arm] 89/60 L Pulse Oximetry 89 89 Oxygen Delivery Me thod Nasal Cannula Oxygen Flow Rate 2 02/05/23 07:54 02/05/23 08:57 02/05/23 11:09 Temperature 99.2 F Pulse Rate Pulse Rate [Pulse Oximeter] 78 77 Respiratory Rate 18 Blood Pressure Blood Pressure [Ri ght Arm] 109/62 101/55 L Pulse Oximetry 89 93 Oxygen Delivery Me thod Nasal Cannula Nasal Cannula Oxygen Flow Rate 2 2 02/05/23 14:17 Temperature 100.3 F H Pulse Rate Pulse Rate [Pulse Oximeter] 93 Respiratory Rate 20 Blood Pressure Blood Pressure [Ri ght Arm] 117/71 Pulse Oximetry 92 Oxygen Delivery Me thod Nasal Cannula Oxygen Flow Rate 2 Documenting provider has reviewed patient's vital signs: yes Labs Labs: Laboratory Results - last 24 hr 02/04/23 02/04/23 02/04/23 11:35 16:11 20:26 WBC RBC Hgb Hct MCV MCH MCHC RDW Coeff of Donnie Plt Count Neut % (Auto) Lymph % (Auto) [place] % (Auto) Eos % (Auto) Baso % (Auto) Neut # (Auto) Lymph # (Auto) [place] # (Auto) Eos # (Auto) Baso # (Auto) Abs Immat Gran (auto) Imm/Tot Granulo (auto) INR 1.22 H 1.26 H APTT 38 H 88 H VBG pH VBG pCO2 VBG pO2 VBG HCO3 Sodium Potassium Chloride Carbon Dioxide Anion Gap BUN Creatinine Estimated Creat Clear Estimated GFR Glucose Calcium Magnesium 2.5 Troponin I 0.03 C-Reactive Protein TSH 1.570 Urine L. pneumophilia Ag Urine Strep pneumoniae Ag Lab Acknowledgement Test Added 02/04/23 02/05/23 02/05/23 Unknown 04:20 10:46 WBC 9.89 RBC 3.46 L Hgb 9.8 L Hct 30.9 L MCV 89 MCH 28 MCHC 32 RDW Coeff of Donnie 13.2 Plt Count 222 Neut % (Auto) 78.4 H Lymph % (Auto) 11.7 L [place] % (Auto) 8.7 Eos % (Auto) 0.9 Baso % (Auto) 0.1 Neut # (Auto) 7.80 H Lymph # (Auto) 1.20 [place] # (Auto) 0.90 Eos # (Auto) 0.09 Baso # (Auto) 0.01 Abs Immat Gran (auto) 0.02 Imm/Tot Granulo (auto) 0.2 INR APTT 57 H 50 H VBG pH 7.394 VBG pCO2 38 L VBG pO2 45.6 VBG HCO3 23 Sodium 136 Potassium 3.9 Chloride 104 Carbon Dioxide 22 Anion Gap 10 BUN 27 Creatinine 0.8 Estimated Creat Clear 73.07 Estimated GFR 92 Glucose 107 Calcium 9.1 Magnesium Troponin I C-Reactive Protein 36.8 H TSH Urine L. pneumophilia Ag L. pneumo Negative Urine Strep pneumoniae Ag S. pneumo Negative Lab Acknowledgement
[2023-02-05] MEDS: DIGOXIN 250 MCG TABLET PO (15:16)
[2023-02-05] MEDS: IPRAT-ALBUT 0.5-2.5 MG/3 ML NEB 1 NEB IH ×2 (15:50→21:59)
[2023-02-05] MEDS: PANTOPRAZOLE SODIUM 40 MG INJ IVP (16:58)
[2023-02-05] MEDS: OXYCODONE 5 MG TABLET 2.5 MG PO ×2 (17:40→22:05)
[2023-02-05] MEDS: HEPARIN 25,000 UNIT/500 ML BAG 20 UNIT IV (18:18)
[2023-02-05 19:56] LABS: INR 1.14 (0.91-1.10); Prothrombin Time 15.4 Seconds
[2023-02-05 19:57] LABS: Partial Thromboplastin Time* 51 Seconds (23-33)
[2023-02-05] MEDS: fentaNYL 100 MCG/2 ML inj 25 MCG IVP (20:31)
[2023-02-05 20:56] LABS: C.Difficile Negative (Negative); CDIFFEPI 027 PRESUMPTIVE NEGATIVE (Negative)
--- NOTE | 2023-02-05 21:31 | PC.NURSE ---
End of Shift: Patient pleasant and cooperative. Afebrile. Rating pain 5/10 and PRN Oxycodone given x1. Incision to left hip C/D/I. CMS intact. Up to bathroom and chair with 1 assist, walker and gait belt. Tolerating regular diet with no nausea. Heart rate increased to the 130s, updated MD and order for Metoprolol. Serrato patent.
[2023-02-06] VITALS (9 sets, daily range): BP systolic 110–129; BP diastolic 57–68; PULSE 70–118; RESP 18–20; TEMP 37.1–38.2; O2SAT 89–94
[2023-02-06] MEDS: METOPROLOL TARTRATE 25 MG TABLET PO ×4 (00:17→10:22)
[2023-02-06] MEDS: PIPERACILLIN/TAZOBACTAM 3.375 GM in 0.9 % SODIUM CHLORIDE Mini-bag 100 ML IVPB ×3 (02:31→15:22)
[2023-02-06 02:34] LABS: Basophils Absolute Auto 0.01 K/uL (0.00-0.30); Basophils Percent Auto 0.1 % (0.0-3.0); Eosinophils Absolute Auto 0.17 K/uL (0.00-0.50); Eosinophils Percent Auto 2.3 % (0.0-7.0); Hematocrit 29.2 % (37.0-53.0); Hemoglobin* 9.4 gm/dL (13.5-17.5); Immature Granulocytes Abs Auto 0.01 K/uL (0.00-0.30); Immature Granulocytes Pct Auto 0.1 %; Lymphocytes Percent Auto 17.7 % (20-44); Mean Corpuscular HGB Conc 32 gm/dL (32-36); Mean Corpuscular Hemoglobin 29 pg (26-34); Mean Corpuscular Volume 89 fL (80-100); Monocytes Percent Auto 9.5 % (0.0-11.0); Neutrophils Absolute Auto 5.25 K/uL (1.7-7.0); Neutrophils Percent Auto 70.3 % (42.0-72.0); Platelet Count* 243 K/uL (140-440); Red Blood Count 3.29 m/uL (4.30-5.90); White Blood Count* 7.47 K/uL (4.50-11.00)
[2023-02-06] MEDS: ACETAMINOPHEN 325 MG TABLET 650 MG PO ×2 (02:35→18:44)
[2023-02-06] MEDS: OXYCODONE 5 MG TABLET 2.5 MG PO (02:35)
[2023-02-06 02:42] LABS: Slide Review Reflex No
[2023-02-06 02:51] LABS: Chloride* 104 mmol/L (96-114); Sodium* 135 mmol/L (135-149)
[2023-02-06 02:52] LABS: Partial Thromboplastin Time* 84 Seconds (23-33); Potassium* 3.9 mmol/L (3.6-5.1)
[2023-02-06 02:54] LABS: Creatinine* 0.7 mg/dL (0.5-1.5); Est. Creatinine Clearance* 73.07; Estimated Glomerular Filt Rate 95 ml/min
[2023-02-06 02:55] LABS: Anion Gap 7 mEq/L (7-15); Blood Urea Nitrogen* 19 mg/dL (7-30); Calcium* 9.1 mg/dL (8.4-10.6); Carbon Dioxide* 24 mmol/L (20-32); Glucose* 108 mg/dL (60-115)
[2023-02-06 03:23] LABS: C Reactive Protein* 28.4 mg/dL (0.5-1.0)
--- NOTE | 2023-02-06 04:56 | PC.NURSE ---
Patient A&O throughout the night. T-max 100.1 in which PRN Tylenol given x1 dose @ 0235. Ax1 with gait belt & walker to commode d/t elevated HR. Up to commode x1 with explosive loose stool > C. Diff negative. Serrato patent & intact, draining clear, francoise urine. Patient on 2-2.5L NC overnight to maintain O2 SATS > 87%. TELE read A. Fib/A. Flutter; sustained in 130s-140s beginning of shift but PO 25mg metoprolol increased from BID to q4H. HR decreased to 60s-80s bpm while asleep. Heparin drip adjusted per MAY. Most recent PTT @ 0215: 84. Heparin gtt currently infusing at 20 mL/hr equalling 1000units/hr. Next PTT draw is @ 0910.
[2023-02-06 08:40] LABS: Troponin I* 0.04 ng/mL (0.01-0.04)
[2023-02-06 08:42] LABS: NT Pro B Type NatriureticPept* 4300 pg/mL
[2023-02-06] MEDS: methIMAzole 5 MG TABLET PO (08:51)
[2023-02-06] MEDS: METOPROLOL SUCCINATE (XL) 50 MG TAB PO (08:51)
[2023-02-06] MEDS: DIGOXIN 125 MCG TABLET PO ×2 (08:51→11:18)
[2023-02-06] MEDS: IPRAT-ALBUT 0.5-2.5 MG/3 ML NEB 1 NEB IH ×2 (08:51→15:00)
[2023-02-06] MEDS: ROSUVASTATIN CALCIUM 10 MG TABLET 40 MG PO (08:52)
[2023-02-06] MEDS: SODIUM CHLORIDE 0.9 % (FLUSH) 10 ML SYRINGE 5 ML IVF (08:53)
[2023-02-06 10:27] LABS: Partial Thromboplastin Time* 52 Seconds (23-33)
[2023-02-06] MEDS: HEPARIN 5,000 UNIT/0.5 ML INJ 2900 UNIT IVP ×2 (10:45→16:50)
[2023-02-06] MEDS: COLCHICINE 0.6 MG CAPSULE PO (11:18)
[2023-02-06 11:21] LABS: Uric Acid* 2.1 mg/dL (2.2-8.4)
--- NOTE | 2023-02-06 11:37 | CRLHL7_ITS ---
For Patients: As a result of the Century Cures Act, medical imaging exams and procedure reports are released immediately into your electronic medical record. You may view this report before your referring provider. If you have questions, please contact your health care provider. Indication: Ankle pain and swelling. Technique: Left ankle 3 views. Comparison: None. Findings: Bones: Alignment is normal. No fractures or bone lesions. Small chronic appearing bone fragment off the tip of the lateral malleolus may be the result of an old injury. Joint spaces: Unremarkable. Soft tissues: Moderate nonspecific generalized swelling. Dictated by Rafael Martel MD @ 02/08/2023 8:24:37 AM (Electronically Signed)
--- NOTE | 2023-02-06 12:15 | P.IMPN_ITS ---
Progress Note: A&P Assessment and plan (1) Sepsis with acute hypoxic respiratory failure: Problem details: Patient presents with abnormal vitals consistent with sepsis with hypoxic respiratory failure. I believe the primary problem is large burden of pulmonary emboli with secondary issues including pneumonia. Patient will be managed here on IV heparin unless there is deterioration in his status at which point we will attempt transfer to [facility] for Interventional Radiology. Slowly improving but with ongoing heart rate problems related to new AFib flutter Status: Acute (2) Pulmonary embolism: Problem details: Generally appears to be improving except heart rate control has been difficult because he is in a new AFib flutter. Blood pressure and oxygenation are Status: Acute (3) Urinary retention: Problem details: Place Serrato catheter for now Status: Acute (4) Pneumonia: Problem details: Zosyn. Infiltrates could be pulmonary infarcts as well. Status: Acute (5) History of total left hip replacement: Problem details: Left total hip arthroplasty-anterior approach (Dr. Adams) January 21 2023 Status: Acute (6) Chronic obstructive pulmonary disease: Problem details: Underlying COPD. Does not appear to being exacerbation at this time Status: Chronic (7) Congestive heart failure: Problem details: No overt signs of heart failure Status: Chronic (8) Atrial fibrillation with RVR: Problem details: Rate control with digoxin and metoprolol and anticoagulation. Increasing doses of metoprolol required for rate control Status: Acute (9) Bilateral flank pain: Problem details: I suspect this is likely from pulmonary infarcts. No other obvious cause for this. Getting better. Status: Acute (10) Gout: Problem details: Left ankle swelling may be gout. Will cautiously treat with colchicine. Possible intra-articular steroids will help as well. Status: Acute Plan Continue in hospital. Continue on IV heparin for now due to slow improvement in cardiac status. Continue to work on rate control with AFib and flutter and provide oxygen. Address left ankle pain which is probably a gout. This will help his ability to rehab his hip surgery as well Time Spent With Patient Total time spent: Total time spent is 55 minutes, 40 minutes in coordination of care discussing with patient other providers management of PE, gout, AFib flutter, pneumonia Subjective Date Seen: 02/06/23 Interval history: 77-year-old male 2 weeks status post left hip arthroplasty admitted with acute dyspnea, bilateral flank pain, left leg swelling and abdominal pain. Evaluation on the day of admission showed that he had large burden of bilateral PE, left lower lobe infiltrate consistent with pneumonia, left lower extremity DVT, urinary retention. He was hypotensive and tachycardic. Echocardiogram was obtained and showed only mild changes from prior echocardiograms with somewhat decreased right ventricular function. Discussion with cold header operator at [facility] led to the decision that he would be observed here and continued to be treated with heparin for his pulmonary emboli but be transferred if he had any clinical deterioration. Last evening he went to into atrial fibrillation with RVR. He was started on digoxin and had improved a rate control with this. This morning metoprolol was added. He is chronically on metoprolol 100 mg daily. With this he had improvement in his heart rate, blood pressure and hypoxia. He remains in the CCU on IV heparin, digoxin, metoprolol, Zosyn. Transferred to medical-surgical bed yesterday afternoon. Had a episode of atrial fib with RVR last evening managed with increased metoprolol. Occurred again this morning with increased metoprolol. He is on 1.5 L of oxygen per nasal cannula to maintain O2 sats in the low to mid 90s.. Exam Narrative: Exam Narrative: He is alert and appears in no distress. Breathing is unlabored. Respirations are clear to auscultation. No wheezing rales or rhonchi. Cardiovascular: S1, S2, irregular tachycardia. Abdomen: Bowel sounds active. Abdomen is soft without tenderness. Extremities notable for right heel and ankle area being quite tender to touch. Not particularly warm. There is mild edema of this area as well. Const: Vital Signs, click to edit/add: Vital Signs - 24 hr 02/05/23 14:17 02/05/23 15:00 02/05/23 15:00 Temperature 100.3 F H Pulse Rate Pulse Rate [Apical ] Pulse Rate [Pulse Oximeter] 93 Respiratory Rate 20 Blood Pressure [Le ft Arm] Blood Pressure [Ri ght Arm] 117/71 Pulse Oximetry 92 94 94 Oxygen Delivery Me thod Nasal Cannula Nasal Cannula Oxygen Flow Rate 2 1 02/05/23 15:00 02/05/23 15:00 02/05/23 15:00 Temperature 98.9 F Pulse Rate 96 Pulse Rate [Apical ] Pulse Rate [Pulse Oximeter] 94 94 Respiratory Rate 20 20 Blood Pressure [Le ft Arm] Blood Pressure [Ri ght Arm] 128/63 Pulse Oximetry 94 Oxygen Delivery Me thod Nasal Cannula Oxygen Flow Rate 1 02/05/23 15:16 02/05/23 18:21 02/05/23 19:47 Temperature 97.9 F 98.8 F Pulse Rate 94 Pulse Rate [Apical ] 140 H Pulse Rate [Pulse Oximeter] 138 H Respiratory Rate 20 Blood Pressure [Le ft Arm] Blood Pressure [Ri ght Arm] 115/70 94/60 Pulse Oximetry 90 87 L Oxygen Delivery Me thod Nasal Cannula Nasal Cannula Oxygen Flow Rate 1 2 02/05/23 22:50 02/05/23 22:50 02/05/23 22:50 Temperature Pulse Rate 109 H Pulse Rate [Apical ] Pulse Rate [Pulse Oximeter] 91 Respiratory Rate 20 Blood Pressure [Le ft Arm] Blood Pressure [Ri ght Arm] Pulse Oximetry 89 Oxygen Delivery Me thod Oxygen Flow Rate 02/05/23 22:50 02/05/23 23:00 02/06/23 02:46 Temperature 100.1 F H 100.1 F H Pulse Rate Pulse Rate [Apical ] Pulse Rate [Pulse Oximeter] 95 85 Respiratory Rate 20 18 18 Blood Pressure [Le ft Arm] 122/71 125/66 Blood Pressure [Ri ght Arm] Pulse Oximetry 90 90 89 Oxygen Delivery Me thod Nasal Cannula Nasal Cannula Nasal Cannula Oxygen Flow Rate 2 2 2 02/06/23 06:57 02/06/23 07:37 02/06/23 07:37 Temperature 98.7 F Pulse Rate Pulse Rate [Apical ] Pulse Rate [Pulse Oximeter] 99 Respiratory Rate Blood Pressure [Le ft Arm] 119/57 L Blood Pressure [Ri ght Arm] Pulse Oximetry 94 94 Oxygen Delivery Me thod Nasal Cannula Oxygen Flow Rate 2 02/06/23 07:37 02/06/23 07:40 02/06/23 08:51 Temperature 99.0 F Pulse Rate 82 82 Pulse Rate [Apical ] 70 Pulse Rate [Pulse Oximeter] Respiratory Rate 20 Blood Pressure [Le ft Arm] Blood Pressure [Ri ght Arm] 110/64 Pulse Oximetry 94 Oxygen Delivery Me thod Nasal Cannula Oxygen Flow Rate 2 02/06/23 11:15 02/06/23 11:18 Temperature 100.7 F H Pulse Rate 118 H Pulse Rate [Apical ] 118 H Pulse Rate [Pulse Oximeter] Respiratory Rate 20 Blood Pressure [Le ft Arm] Blood Pressure [Ri ght Arm] 127/68 Pulse Oximetry 91 Oxygen Delivery Me thod Nasal Cannula Oxygen Flow Rate 2 Documenting provider has reviewed patient's vital signs: yes Labs Labs: Laboratory Results - last 24 hr 02/05/23 02/05/23 02/05/23 10:46 17:23 19:16 WBC RBC Hgb Hct MCV MCH MCHC RDW Coeff of Donnie Plt Count Neut % (Auto) Lymph % (Auto) [place] % (Auto) Eos % (Auto) Baso % (Auto) Neut # (Auto) Lymph # (Auto) [place] # (Auto) Eos # (Auto) Baso # (Auto) Abs Immat Gran (auto) Imm/Tot Granulo (auto) INR 1.14 H APTT 50 H 51 H Sodium Potassium Chloride Carbon Dioxide Anion Gap BUN Creatinine Estimated Creat Clear Estimated GFR Glucose Uric Acid Calcium Troponin I C-Reactive Protein NT-Pro-B Natriuret Pep Stl C. diff Tox B Gene Negative Stl C. diff [id number]-NAP1-BI PRESUMPTIVE NEGATIVE Lab Acknowledgement 02/06/23 02/06/23 02/06/23 02:25 09:46 10:59 WBC 7.47 RBC 3.29 L Hgb 9.4 L Hct 29.2 L MCV 89 MCH 29 MCHC 32 RDW Coeff of Donnie 13.0 Plt Count 243 Neut % (Auto) 70.3 Lymph % (Auto) 17.7 L [place] % (Auto) 9.5 Eos % (Auto) 2.3 Baso % (Auto) 0.1 Neut # (Auto) 5.25 Lymph # (Auto) 1.30 [place] # (Auto) 0.70 Eos # (Auto) 0.17 Baso # (Auto) 0.01 Abs Immat Gran (auto) 0.01 Imm/Tot Granulo (auto) 0.1 INR APTT 84 H 52 H Sodium 135 Potassium 3.9 Chloride 104 Carbon Dioxide 24 Anion Gap 7 BUN 19 Creatinine 0.7 Estimated Creat Clear 73.07 Estimated GFR 95 Glucose 108 Uric Acid 2.1 L Cancelled Calcium 9.1 Troponin I 0.04 C-Reactive Protein 28.4 H NT-Pro-B Natriuret Pep 4300 Stl C. diff Tox B Gene Stl C. diff [id number] Lab Acknowledgement Test Added Test Added
--- NOTE | 2023-02-06 15:13 | PM.ORCN ---
History of Present Illness HPI Date Seen: 02/06/23 Consult date: 02/06/23 Requesting physician: Nikoaly Alvarez Chief complaint: Breathing difficulty, rapid heart rate Narrative: The patient is known to our clinic, and now 2.5 weeks status post left total hip arthroplasty - anterior approach. Returned to [facility] 02/04/2023 with concerns for shortness of breath, rapid breathing, rapid heart rate. Found to have bilateral PE and is currently undergoing treatment at [facility] with heparin drip, rate control medications, supplemental oxygen - transfer of the patient to [facility] for further PE care is pending. Patient also expresses concerns for left ankle discomfort, swelling, stiffness that he has noticed for the last few weeks, now worsening. Reports history of gout in this left foot/ankle. Has taken allopurinol in the past for gout prevention. Pain in the left ankle present with passive and active motion, deep in the joint per patient. Per patient, his symptoms are similar to gout flares he has experienced in the past. Orthopedics consulted for left ankle pain. Review of Systems Narrative: No recent fevers, chills, or aches; no numbness or tingling distally [facility] Medical History Gout ?M10.9 - Gout, unspecified (ICD-10) Atrial fibrillation with RVR ?I48.91 - Unspecified atrial fibrillation (ICD-10) Urinary retention ?R33.9 - Retention of urine, unspecified (ICD-10) Osteoarthritis of left hip ?M16.12 - Unilateral primary osteoarthritis, left hip (ICD-10) TMJ (temporomandibular joint syndrome) ?M26.609 - Unspecified temporomandibular joint disorder, unspecified side (ICD-10) Lumbar degenerative disc disease ?M51.36 - Other intervertebral disc degeneration, lumbar region (ICD-10) Low back pain ?M54.50 - Low back pain, unspecified (ICD-10) COPD (chronic obstructive pulmonary disease) ?J44.9 - Chronic obstructive pulmonary disease, unspecified (ICD-10) Chronic low back pain ?M54.50 - Low back pain, unspecified (ICD-10) ?G89.29 - Other chronic pain (ICD-10) Right shoulder pain ?M25.511 - Pain in right shoulder (ICD-10) Lesion of right external ear ?H61.91 - Disorder of right external ear, unspecified (ICD-10) Thrush, oral ?B37.0 - Candidal stomatitis (ICD-10) Insomnia ?G47.00 - Insomnia, unspecified (ICD-10) Anemia ?D64.9 - Anemia, unspecified (ICD-10) Angina at rest ?I20.8 - Other forms of angina pectoris (ICD-10) Hypertension ?I10 - Essential (primary) hypertension (ICD-10) Seasonal allergic rhinitis ?J30.2 - Other seasonal allergic rhinitis (ICD-10) Peripheral vascular disease ?I73.9 - Peripheral vascular disease, unspecified (ICD-10) Obstructive sleep apnea treated with continuous positive airway pressure (CPAP) ?G47.33 - Obstructive sleep apnea (adult) (pediatric) (ICD-10) ?Z99.89 - Dependence on other enabling machines and devices (ICD-10) Monoclonal gammopathy ?D47.2 - Monoclonal gammopathy (ICD-10) Hyperlipidemia ?E78.5 - Hyperlipidemia, unspecified (ICD-10) History of malignant neoplasm of skin ?Z85.828 - Personal history of other malignant neoplasm of skin (ICD-10) History of depression ?Z86.59 - Personal history of other mental and behavioral disorders (ICD-10) History of calcium pyrophosphate deposition disease (CPPD) ?Z87.39 - Personal history of other diseases of the musculoskeletal system and connective tissue (ICD-10) History of adenomatous polyp of colon (02/12/18) ?Z86.010 - Personal history of colonic polyps (ICD-10) Gastroesophageal reflux disease ?K21.9 - Gastro-esophageal reflux disease without esophagitis (ICD-10) Enlarged prostate ?N40.0 - Benign prostatic hyperplasia without lower urinary tract symptoms (ICD-10) Coronary artery disease ?I25.10 - Atherosclerotic heart disease of tribe coronary artery without angina pectoris (ICD-10) Congestive heart failure ?I50.9 - Heart failure, unspecified (ICD-10) Chronic, continuous use of opioids ?F11.90 - Opioid use, unspecified, uncomplicated (ICD-10) Chronic right shoulder pain (2018) ?M25.511 - Pain in right shoulder (ICD-10) ?G89.29 - Other chronic pain (ICD-10) Chronic pancreatitis ?K86.1 - Other chronic pancreatitis (ICD-10) Chronic obstructive pulmonary disease ?J44.9 - Chronic obstructive pulmonary disease, unspecified (ICD-10) Chronic neck pain ?M54.2 - Cervicalgia (ICD-10) ?G89.29 - Other chronic pain (ICD-10) Carpal tunnel syndrome of right wrist ?G56.01 - Carpal tunnel syndrome, right upper limb (ICD-10) Aortic aneurysm ?I71.9 - Aortic aneurysm of unspecified site, without rupture (ICD-10) Hyperthyroidism ?E05.90 - Thyrotoxicosis, unspecified without thyrotoxic crisis or storm (ICD-10) Surgical History History of total left hip replacement (01/21/23) ?Z96.642 - Presence of left artificial hip joint (ICD-10) H/O excision of ganglion cyst (04/25/22) ?Z98.890 - Other specified postprocedural states (ICD-10) History of carpal tunnel surgery of left wrist (04/25/22) ?Z98.890 - Other specified postprocedural states (ICD-10) Status post coronary angiogram ?Z98.890 - Other specified postprocedural states (ICD-10) History of carpal tunnel surgery of right wrist (11/30/20) ?Z98.890 - Other specified postprocedural states (ICD-10) S/P cubital tunnel release (11/30/20) ?Z98.890 - Other specified postprocedural states (ICD-10) Status post six vessel coronary artery bypass graft (1996) ?Z95.1 - Presence of aortocoronary bypass graft (ICD-10) History of umbilical hernia repair (04/16/13) ?Z98.890 - Other specified postprocedural states (ICD-10) ?Z87.19 - Personal history of other diseases of the digestive system (ICD-10) History of spinal surgery ?Z98.890 - Other specified postprocedural states (ICD-10) History of rotator cuff surgery (2007) ?Z98.890 - Other specified postprocedural states (ICD-10) History of operative procedure on hip (04/01/18) ?Z98.890 - Other specified postprocedural states (ICD-10) History of endarterectomy (2013) ?Z98.890 - Other specified postprocedural states (ICD-10) History of colonoscopy with polypectomy ?Z98.890 - Other specified postprocedural states (ICD-10) ?Z86.010 - Personal history of colonic polyps (ICD-10) History of cholecystectomy ?Z90.49 - Acquired absence of other specified parts of digestive tract (ICD-10) History of carpal tunnel surgery of left wrist (2007) ?Z98.890 - Other specified postprocedural states (ICD-10) History of appendectomy ?Z90.49 - Acquired absence of other specified parts of digestive tract (ICD-10) History of aortic aneurysm repair (2012) ?Z98.890 - Other specified postprocedural states (ICD-10) ?Z86.79 - Personal history of other diseases of the circulatory system (ICD-10) Family History Father Asthma Sister Asthma Breast cancer Lung cancer Mother Dementia Rheumatoid arthritis Social History Narrative: , five daughters, does not use illicit drugs, nonsmoker. Occasional alcohol. History of some cannabis use but not recently and not regularly. Lives in [facility]. He has been in [facility] for the last 2 weeks for rehab following his hip surgery. What is your current living situation?: I presently have a place to live Problems where you live: no known problems Problems where you live details: na In the past 12 months, utilities in danger of being shut off: no In past 12 months, lack of transportation kept you from medical appts, meetings, work, or getting things needed for daily living: no In the past 12 mos, have been you worried that your food would run out before you had money to buy more?: never true In the past 12 mos, the food you bought just didn't last and you didn't have money to buy more?: never true Highest level of school completed/degree received: 12th grade, no diploma Smoking Status: Former smoker Do you use any of these nicotine containing products: None Second hand tobacco smoke exposure: No How often do you have a drink containing alcohol: monthly or less How many standard drinks containing alcohol do you have on a typical day: 1 or 2 How often do you have six or more drinks on one occasion: Less than monthly AUDIT-C Alcohol total score: 2 Non-prescribed substance use: denies use Non-prescribed substance use details: was trying THC gummies but not effective and hasn't had them in a while. Caffeine: Yes How often does anyone, including family, friends and others, physically hurt you: never How often does anyone, including family, friends and others, insult or talk down to you: never How often does anyone, including family, friends and others, threaten you with harm: never How often does anyone, including family, friends and others, scream or curse at you: never Little interest or pleasure in doing things: more than half the days Feeling down, depressed, or hopeless: several days service: Yes Meds Home Medications and Allergies Home Medications Medication Instructions Recorded Confirmed Type metoprolol succinate 100 mg 100 mg PO DAILY 10/11/21 02/04/23 History tablet,extended release 24 hr acetaminophen 500 mg tablet 1,000 mg PO Q6H 11/09/21 02/04/23 History fexofenadine 180 mg tablet 180 mg PO DAILY 11/10/21 02/04/23 History (Joanna Allergy) melatonin 5 mg capsule 10 mg PO HS PRN 11/10/21 02/04/23 History cpap 01/17/22 01/09/23 History clopidogrel 75 mg tablet 75 mg PO DAILY 04/18/22 02/04/23 History famotidine 20 mg tablet 20 mg PO DAILY 01/09/23 02/04/23 History cholecalciferol (vitamin D3) 25 50 mcg PO DAILY 01/21/23 02/04/23 History mcg (1,000 unit) chewable tablet (Vitamin D3) cyanocobalamin (vitamin B-12) 1,000 mcg PO DAILY Anemia 01/21/23 02/04/23 History 1,000 mcg tablet losartan 25 mg tablet 25 mg PO DAILY Hypertension 01/21/23 02/04/23 History roflumilast 500 mcg tablet 500 mcg PO DAILY Anemia 01/21/23 02/04/23 History (Daliresp) tiotropium bromide 18 mcg capsule 1 cap inhalation DAILY COPD 01/21/23 02/04/23 History with inhalation device (Spiriva with HandiHaler) ipratropium bromide 21 mcg (0.03 2 spray intranasal TID PRN allergy 02/04/23 02/04/23 History %) nasal spray symptoms methimazole 5 mg tablet 5 mg PO DAILY 02/04/23 02/04/23 History nitroglycerin 0.4 mg sublingual 0.4 mg sublingual Q5-15M PRN Angina 02/04/23 02/04/23 History tablet oxycodone 5 mg tablet 5 mg PO BID pain 02/04/23 02/04/23 History sennosides 8.6 mg-docusate sodium 2 tab-cap PO DAILY PRN constipation 02/04/23 02/04/23 History 50 mg tablet (Senna-S) Allergies Allergy/AdvReac Type Severity Reaction Status Date / Time bupropion Allergy Unknown tinnitus Verified 01/21/23 06:25 isosorbide Allergy Unknown Headache Verified 01/21/23 06:25 spironolactone Allergy Unknown gynecomasti Verified 01/21/23 06:25 a topiramate Allergy Unknown doses Verified 01/21/23 06:25 higher than 50 daily not tolerated venlafaxine Allergy Unknown Anxiety Verified 01/21/23 06:25 Ortho Exam Narrative Exam Narrative: General: Well-developed, well-nourished, A&Ox 3, no apparent acute distress. Pulmonary: Breathing pattern regular, even, without apparent distress or audible wheeze present. Left Ankle/Foot: Antalgic gait favoring left (also favoring left lower extremity due to recent hip arthroplasty) Moderate swelling and +2 pitting ankle edema, very mild erythema noted just anterior to the medial malleolus, marker outline without erythema extension outside of the marker outline. Mildly increased heat to touch around the ankle, including the lower leg. Painful touch with palpation tibiotalar joint, especially medial. Mild discomfort to calcaneal squeeze. No pain to palpation midfoot and forefoot. Nontender great MTP joint Passive ankle range of motion 15? dorsiflexion, 25? plantar flexion with discomfort deep tibiotalar joint, less discomfort in this treatment with active range of motion 2+ DP/PT pulses, pink warm digits with brisk cap refill; intact dermatomes and myotomes distally including the common peroneal, tibial, saphenous, and sural nerve distributions; 5/5 strength dorsal and plantar flexion. Left hip: Anterior approach wound appears healthy and healing, intact, no drainage Mild discomfort to palpation along the lateral thigh Moderate swelling thigh Intact sensation lateral femoral cutaneous nerve distribution No significant pain to palpation bilateral calves Const Vital Signs, click to edit/add: Vital Signs - 24 hr 02/05/23 15:16 02/05/23 18:21 02/05/23 19:47 Temperature 97.9 F 98.8 F Pulse Rate 94 Pulse Rate [Apical] 140 H Pulse Rate [Pulse Oximeter] 138 H Respiratory Rate 20 Blood Pressure [Left Arm] Blood Pressure [Right Arm] 115/70 94/60 Pulse Oximetry 90 87 L Oxygen Delivery Method Nasal Cannula Nasal Cannula Oxygen Flow Rate 1 2 02/05/23 22:50 02/05/23 22:50 02/05/23 22:50 Temperature Pulse Rate 109 H Pulse Rate [Apical] Pulse Rate [Pulse Oximeter] 91 Respiratory Rate 20 Blood Pressure [Left Arm] Blood Pressure [Right Arm] Pulse Oximetry 89 Oxygen Delivery Method Oxygen Flow Rate 02/05/23 22:50 02/05/23 23:00 02/06/23 02:46 Temperature 100.1 F H 100.1 F H Pulse Rate Pulse Rate [Apical] Pulse Rate [Pulse Oximeter] 95 85 Respiratory Rate 20 18 18 Blood Pressure [Left Arm] 122/71 125/66 Blood Pressure [Right Arm] Pulse Oximetry 90 90 89 Oxygen Delivery Method Nasal Cannula Nasal Cannula Nasal Cannula Oxygen Flow Rate 2 2 2 02/06/23 06:57 02/06/23 07:37 02/06/23 07:37 Temperature 98.7 F Pulse Rate Pulse Rate [Apical] Pulse Rate [Pulse Oximeter] 99 Respiratory Rate Blood Pressure [Left Arm] 119/57 L Blood Pressure [Right Arm] Pulse Oximetry 94 94 Oxygen Delivery Method Nasal Cannula Oxygen Flow Rate 2 02/06/23 07:37 02/06/23 07:40 02/06/23 08:51 Temperature 99.0 F Pulse Rate 82 82 Pulse Rate [Apical] 70 Pulse Rate [Pulse Oximeter] Respiratory Rate 20 Blood Pressure [Left Arm] Blood Pressure [Right Arm] 110/64 Pulse Oximetry 94 Oxygen Delivery Method Nasal Cannula Oxygen Flow Rate 2 02/06/23 11:15 02/06/23 11:18 Temperature 100.7 F H Pulse Rate 118 H Pulse Rate [Apical] 118 H Pulse Rate [Pulse Oximeter] Respiratory Rate 20 Blood Pressure [Left Arm] Blood Pressure [Right Arm] 127/68 Pulse Oximetry 91 Oxygen Delivery Method Nasal Cannula Oxygen Flow Rate 2 Results Labs Labs: Laboratory Results - last 48 hr 02/04/23 02/04/23 02/04/23 11:35 16:11 20:26 WBC RBC Hgb Hct MCV MCH MCHC RDW Coeff of Donnie Plt Count Neut % (Auto) Lymph % (Auto) [place] % (Auto) Eos % (Auto) Baso % (Auto) Neut # (Auto) Lymph # (Auto) [place] # (Auto) Eos # (Auto) Baso # (Auto) Abs Immat Gran (auto) Imm/Tot Granulo (auto) INR 1.22 H 1.26 H APTT 38 H 88 H VBG pH VBG pCO2 VBG pO2 VBG HCO3 Sodium Potassium Chloride Carbon Dioxide Anion Gap BUN Creatinine Estimated Creat Clear Estimated GFR Glucose Uric Acid Calcium Magnesium 2.5 Troponin I 0.03 C-Reactive Protein NT-Pro-B Natriuret Pep TSH 1.570 Urine L. pneumophilia Ag Urine Strep pneumoniae Ag Stl C. diff Tox B Gene Stl C. diff [id number]-[id number] Lab Acknowledgement Test Added 02/04/23 02/05/23 02/05/23 Unknown 04:20 10:46 WBC 9.89 RBC 3.46 L Hgb 9.8 L Hct 30.9 L MCV 89 MCH 28 MCHC 32 RDW Coeff of Donnie 13.2 Plt Count 222 Neut % (Auto) 78.4 H Lymph % (Auto) 11.7 L [place] % (Auto) 8.7 Eos % (Auto) 0.9 Baso % (Auto) 0.1 Neut # (Auto) 7.80 H Lymph # (Auto) 1.20 [place] # (Auto) 0.90 Eos # (Auto) 0.09 Baso # (Auto) 0.01 Abs Immat Gran (auto) 0.02 Imm/Tot Granulo (auto) 0.2 INR APTT 57 H 50 H VBG pH 7.394 VBG pCO2 38 L VBG pO2 45.6 VBG HCO3 23 Sodium 136 Potassium 3.9 Chloride 104 Carbon Dioxide 22 Anion Gap 10 BUN 27 Creatinine 0.8 Estimated Creat Clear 73.07 Estimated GFR 92 Glucose 107 Uric Acid Calcium 9.1 Magnesium Troponin I C-Reactive Protein 36.8 H NT-Pro-B Natriuret Pep TSH Urine L. pneumophilia Ag L. pneumo Negative Urine Strep pneumoniae Ag S. pneumo Negative Stl C. diff Tox B Gene Stl C. diff -NAP1-BI Lab Acknowledgement 02/05/23 02/05/23 02/06/23 17:23 19:16 02:25 WBC 7.47 RBC 3.29 L Hgb 9.4 L Hct 29.2 L MCV 89 MCH 29 MCHC 32 RDW Coeff of Donnie 13.0 Plt Count 243 Neut % (Auto) 70.3 Lymph % (Auto) 17.7 L [place] % (Auto) 9.5 Eos % (Auto) 2.3 Baso % (Auto) 0.1 Neut # (Auto) 5.25 Lymph # (Auto) 1.30 [place] # (Auto) 0.70 Eos # (Auto) 0.17 Baso # (Auto) 0.01 Abs Immat Gran (auto) 0.01 Imm/Tot Granulo (auto) 0.1 INR 1.14 H APTT 51 H 84 H VBG pH VBG pCO2 VBG pO2 VBG HCO3 Sodium 135 Potassium 3.9 Chloride 104 Carbon Dioxide 24 Anion Gap 7 BUN 19 Creatinine 0.7 Estimated Creat Clear 73.07 Estimated GFR 95 Glucose 108 Uric Acid 2.1 L Calcium 9.1 Magnesium Troponin I 0.04 C-Reactive Protein 28.4 H NT-Pro-B Natriuret Pep 4300 TSH Urine L. pneumophilia Ag Urine Strep pneumoniae Ag Stl C. diff Tox B Gene Negative Stl C. diff -NAP1- PRESUMPTIVE NEGATIVE Lab Acknowledgement Test Added 02/06/23 02/06/23 09:46 10:59 WBC RBC Hgb Hct MCV MCH MCHC RDW Coeff of Donnie Plt Count Neut % (Auto) Lymph % (Auto) [place] % (Auto) Eos % (Auto) Baso % (Auto) Neut # (Auto) Lymph # (Auto) [place] # (Auto) Eos # (Auto) Baso # (Auto) Abs Immat Gran (auto) Imm/Tot Granulo (auto) INR APTT 52 H VBG pH VBG pCO2 VBG pO2 VBG HCO3 Sodium Potassium Chloride Carbon Dioxide Anion Gap BUN Creatinine Estimated Creat Clear Estimated GFR Glucose Uric Acid Cancelled Calcium Magnesium Troponin I C-Reactive Protein NT-Pro-B Natriuret Pep TSH Urine L. pneumophilia Ag Urine Strep pneumoniae Ag Stl C. diff Tox B Gene Stl C. diff [id number] Lab Acknowledgement Test Added Diagnostic results Ankle/Foot x-ray: report reviewed and image reviewed Additional Comments: Three views left ankle ordered and preliminarily reviewed today. Images show mild joint space narrowing of the tibiotalar joint, without significant osteophytosis. Generalized soft tissue swelling noted both medial and lateral malleoli. No clear effusion. No fracture. No interosseous pathology. Metallic vascular clips noted along medial lower leg. Assessment and Plan Assessment and plan (1) Sepsis with acute hypoxic respiratory failure: Problem comment: Patient presents with abnormal vitals consistent with sepsis with hypoxic respiratory failure. I believe the primary problem is large burden of pulmonary emboli with secondary issues including pneumonia. Patient will be managed here on IV heparin unless there is deterioration in his status at which point we will attempt transfer to [facility] for Interventional Radiology. Slowly improving but with ongoing heart rate problems related to new AFib flutter Status: Acute Total time spent: Total time spent is greater than 50% in coordination of care (as documented) at patient's floor/unit and/or counseling patient: (2) Pulmonary embolism: Problem comment: Generally appears to be improving except heart rate control has been difficult because he is in a new AFib flutter. Blood pressure and oxygenation are Status: Acute Total time spent: Total time spent is greater than 50% in coordination of care (as documented) at patient's floor/unit and/or counseling patient: (3) Urinary retention: Problem comment: Place Serrato catheter for now Status: Acute Total time spent: Total time spent is greater than 50% in coordination of care (as documented) at patient's floor/unit and/or counseling patient: (4) Pneumonia: Problem comment: Zosyn. Infiltrates could be pulmonary infarcts as well. Status: Acute Total time spent: Total time spent is greater than 50% in coordination of care (as documented) at patient's floor/unit and/or counseling patient: (5) History of total left hip replacement: Problem comment: Left total hip arthroplasty-anterior approach (Dr. Adams) January 21 2023 Status: Acute Total time spent: Total time spent is greater than 50% in coordination of care (as documented) at patient's floor/unit and/or counseling patient: (6) Chronic obstructive pulmonary disease: Problem comment: Underlying COPD. Does not appear to being exacerbation at this time Status: Chronic Total time spent: Total time spent is greater than 50% in coordination of care (as documented) at patient's floor/unit and/or counseling patient: (7) Congestive heart failure: Problem comment: No overt signs of heart failure Status: Chronic Total time spent: Total time spent is greater than 50% in coordination of care (as documented) at patient's floor/unit and/or counseling patient: (8) Atrial fibrillation with RVR: Problem comment: Rate control with digoxin and metoprolol and anticoagulation. Increasing doses of metoprolol required for rate control Status: Acute Total time spent: Total time spent is greater than 50% in coordination of care (as documented) at patient's floor/unit and/or counseling patient: (9) Bilateral flank pain: Problem comment: I suspect this is likely from pulmonary infarcts. No other obvious cause for this. Getting better. Status: Acute Total time spent: Total time spent is greater than 50% in coordination of care (as documented) at patient's floor/unit and/or counseling patient: (10) Gout: Problem comment: Left ankle swelling, probable gout with patient's history of left foot/ankle gout. Initially treated with oral colchicine. Status: Acute Assessment and Plan: We had a thorough discussion regarding pathology. Clinically patient's symptoms and signs support diagnosis of tibiotalar joint acute gout flare. He has some mild joint space narrowing of the tibiotalar joint seen on radiographs, thus primary tibiotalar joint OA is not the primary diagnosis. Treatment options for acute gout flare include oral medications, ice, heat, modified activities. We also discussed corticosteroid injection and possible aspiration. In the setting of 2.5 weeks status post left total hip arthroplasty, and current treatment for pulmonary embolism including imminent transfer to [facility] for further treatment regarding the bilateral PE, with patient shared decision-making, we elect to pursue left ankle corticosteroid injection and attempted aspiration. Risks, benefits, and alternatives to injection provided, including but not limited to: infection, needle encroachment on a nerve or vascular structure, or non sustaining symptom relief. Patient stated understanding, and elects to proceed with the injection and aspiration attempt. After patient written consent was obtained for left ankle aspiration attempt and corticosteroid injection, the left ankle was prepped with iodine swabs. Landmarks identified, and Ethyl Chloride spray was applied to the site as topical anesthetic. Then a 19 gauge needle was introduced with attempted aspirate, no success. Then, combination of 1cc Depo-Medrol (80 mg) and 2cc 0.25% bupivacaine (5mg) was injected from an anterior approach into the right tibiotalar joint space within the sulcus between the medial malleolus and the anterior tibialis tendon, entering just medial to the tendon with the foot in a plantar flexed position, aiming posterior and lateral using a 25 gauge needle without complications. The procedure was tolerated well by the patient. Band-aid applied. Post injection instructions and precautions provided. Post injection, patient had far less discomfort with passive and active ankle range of motion. He may weight as tolerated with his left lower extremity in regards to both status post left total hip arthroplasty and left ankle acute gout flare. He is encouraged to follow up Orthopedics as needed regarding his left ankle. Total time spent: Total time spent is greater than 50% in coordination of care (as documented) at patient's floor/unit and/or counseling patient:
[2023-02-06] MEDS: PANTOPRAZOLE SODIUM 40 MG INJ IVP (15:22)
[2023-02-06] MEDS: AMIODARONE 50 MG/ML inj 150 MG in 5 % DEXTROSE 100 ML 100 ML 618 MG IVPB (15:43)
[2023-02-06] MEDS: AMIODARONE INFUSION 360 MG/200 ML PLAST..BAG 33 MG IV (16:12)
[2023-02-06 16:30] LABS: Partial Thromboplastin Time* 54 Seconds (23-33)
[2023-02-06] MEDS: HEPARIN 25,000 UNIT/500 ML BAG 28 UNIT IV (16:54)
--- NOTE | 2023-02-06 18:47 | PC.NURSE ---
Addendum entered by Sofia Tyler RN 02/06/23 19:13: Pt. transferred to [facility] via [facility] at 1912. Original Note: Pt. will be transferring to [facility] this evening. [id number] report given to Gisell at [facility] - [id number].
== END 2023-02-06 19:12 | disposition short-term general hospital (02) | DRG 871 ==
LOC: ED 14:14 → MEDSURG 14:31
PROVIDERS: Family Medicine; Admitting Provider Family Medicine; Emergency Provider Emergency Medicine Emergency Medical Services; PCP Internal Medicine; Visit Provider Family Medicine
DX: A41.9 Sepsis, unspecified organism (principal); I26.99 Other pulmonary embolism without acute cor pulmonale; J69.0 Pneumonitis due to inhalation of food and vomit; J96.01 Acute respiratory failure with hypoxia; R65.21 Severe sepsis with septic shock; I48.92 Unspecified atrial flutter; I48.20 Chronic atrial fibrillation, unspecified; J44.0 Chronic obstructive pulmonary disease with (acute) lower respiratory infection; R33.9 Retention of urine, unspecified; M10.072 Idiopathic gout, left ankle and foot; F11.90 Opioid use, unspecified, uncomplicated; G47.33 Obstructive sleep apnea (adult) (pediatric); Z99.89 Dependence on other enabling machines and devices; I71.9 Aortic aneurysm of unspecified site, without rupture; G89.29 Other chronic pain; Z79.01 Long term (current) use of anticoagulants; D47.2 Monoclonal gammopathy; I11.0 Hypertensive heart disease with heart failure; I50.9 Heart failure, unspecified; R10.9 Unspecified abdominal pain; I25.10 Atherosclerotic heart disease of native coronary artery without angina pectoris; E05.90 Thyrotoxicosis, unspecified without thyrotoxic crisis or storm; I73.9 Peripheral vascular disease, unspecified; Z96.642 Presence of left artificial hip joint
CPT/HCPCS: 36415; 51701; 71275; 73610; 74177; 80048; 81001; 82803; 83605; 83735; 83880; 84443; 84484; 84550; 85025; 85027; 85379; 85610; 85730; 86140; 87040; 87081; 87086; 87449; 87493; 87631; 87899; 93005; 93306; 93971; 94640; 94664; 94761; 97110; 97163; 97165; 97535; 99285; A9270; C9113; J0282; J1160; J1644; J2543; J3010; J7030; J7120; Q9957; Q9967

== ENCOUNTER 2023-02-06 18:52 | Outpatient (CLI) | payer OTHER, SELFPAY ==
--- OUTSIDE RECORDS SUMMARY | 2023-02-07 09:54 | XMS_ITS | Continuity of Care Document ---
Author Name Unknown Organization [facility] Address [address] [place] [address] Phone Care Team Providers Care Oyster Preparer Name Role Phone Minesh Fonseca Unavailable Unavailable Procedures Procedure Date Office/Outpatient Visit,[place] 2021 Advance Directives Directive Yes / No Effective Date File Name No Information Encounters Encounter Description Practice Location Reason(s) For Visit Diagnoses Date Provider Providers Copied on Encounter Office/Outpat ient Visit,, [facility] [place] [place] [facility], [address], [place], [place], [id number], [place] tel:[phone] [facility] Other intervertebral disc degeneration, lumbar region 2 [address]. [facility], [address], [address], [place], [place], [id number] , [place]. tel:[phone] [facility] [address] [place] [address], [id number]. tel:[phone] Family History Family Member Type Diagnosis Age At Onset No Information Payers Payer name Insurance type Covered green party ID Authoriza tion(s) [employer] Gold Choice [place] MB [id number] Social History Type Description Quantity Date [...]
--- OUTSIDE RECORDS SUMMARY | 2023-02-07 09:55 | XMS_ITS | Continuity of Care Document ---
Author Name Unknown Organization [facility] Address [address] [place] [address] Phone Care Team Providers Care Controls Engineer Name Role Phone Malachi Beth NP Unavailable [...] puff - Active Flonase 50 mcg/actuation Nasal [place] spray 2 spray by intranasal route every [...] Min [facility] Pt Eval 25 Min Assay of benzodiazepines Assay of amphetamine or methamphetamine Assay of barbiturates, not elsewhere spe cified Assay of cocaine or metabolite 15 Assay of methadone Opiate(s), drug and metabolites, each pr ocedure Drug confirmation, each procedure Pain Assessment And Follow Up Plan Docum ent Est Pt Eval 25 Min [facility] Pt Eval 15 Min [facility] Inj Not Lytic-epidur; Cerv/tho 15 Fluoro Guidance [...] Encounter Est Pt Eval 25 Min [facility], [facility], [address], [place], [place], [address], [place] tel:[phone] [facility] Obesity, unspecifiedOt her spondylosis with radiculopathy , lumbar regionLong term (current) use of opiate analgesicOthe r cervical disc degeneration, unsp cervical regionLow back painPostlamin ectomy syndrome, not elsewhere classified 7 Ignacia M. [address], [facility] , [place], [address], [place]. tel:[phone] Referring Provider: Miri Amaya, [address] [facility] [address] [place], [address]. tel:[phone] Est Pt Eval 25 Min [facility], [address], [place], [place], [address], [place] tel:[phone] [facility] parts counterman (current) use of opiate analgesicLow back painCervicalg iaPostlaminec abel syndrome, not elsewhere classified 7 No Information Referring Provider: Miri Amaya, [address] [place] [address] [address] [place], [address]. tel:[phone] Est Pt Eval 25 Min [facility], [address], [place], [place], [address], [place] tel:[phone] [facility] senior living (current) use of opiate analgesicLow back painCervicalg iaPostlaminec abel syndrome, not elsewhere classified Nov-0 6 No Information Referring Provider: Miri Amaya, [address] [place] [address] [address] [place], [address]. tel:[phone] Est Pt Eval 25 Min [facility], [address], [place], [place], [address], [place] tel:[phone] [facility] senior living (current) use of opiate analgesicCerv icalgiaLow back painPostlamin ectomy syndrome, not elsewhere classified Sep-0 - 6 No Information Referring Provider: Miri Amaya, [address] [place] [address] [address] [place], [address]. tel:[phone] Est Pt Eval 25 Min [facility], [address], [place], [place], [address], [place] tel:[phone] [facility] Postlaminecto my syndrome, not elsewhere classifiedLow back painCervicalg iaLong term (current) use of opiate analgesic Col[place]-0 6 No Information Referring Provider: Miri Amaya, [address] [place] [address] [address] [place], [address]. tel:[phone] Est Pt Eval 15 Min [facility], [address], [place], [place], [address], [place] tel:[phone] [facility] Other spondylosis with radiculopathy , lumbar regionObesity senior living (current) use of opiate analgesicCarp al tunnel syndrome, right upper limb 0-201 6 Openda Too. [address], [place], [address], [place]. tel:[phone] Miri Vargas.Refe rring Provider: Miri Amaya, [address] [place] [address] [address] [place], [address]. tel:[phone] Est Pt Eval 15 Min [facility], [address], [place], [place], [address], [place] tel:[phone] [facility] Other spondylosis with radiculopathy , lumbar regionObesity senior living (current) use of opiate analgesicCarp al tunnel syndrome, right upper limb 8- 6 Openda Too. [address], [place], [address], [place]. tel:[phone] Referring Provider: Miri Amaya, [address] [place] [address] [address] [place], [address]. tel:[phone] Est Pt Eval 15 Min [facility], [address], [place], [place], [address], [place] tel:[phone] [facility] Other spondylosis with radiculopathy , lumbar regionObesity parts counterman (current) use of opiate analgesicCarp al tunnel syndrome, right upper limb 6 Openda Too. [address], [place], [address], [place]. tel:[phone] Referring Provider: Miri Amaya, [address] [place] [address] [address] [place], [address]. tel:[phone] [facility], [address], [place], [place], [address], [place] tel:[phone] [facility] No Information 5 Barthold PT [place]. [address], [place], [place], [address], [place]. tel:[phone] Referring Provider: Miri Amaya, [address] [place] [address] [address] [place], [place], [address]. [phone] Est Pt Eval 15 Min Vaughn, [facility], [address], [place], [place], [address], [place] tel:[phone] [facility] Other spondylosis with radiculopathy , lumbar regionObesity parts counterman (current) use of opiate analgesic Openda Too. [address], [place], [address], [place]. tel:[phone] Referring Provider: Miri Amaya, [address] [place] [address] [address] [place], [place], [address]. tel:[phone] [facility], [facility], [address], [place], [place], [address], [place] tel:[phone] [facility] No Information 5 Barthold PT [place]. [address], [address], [place], [address], [place]. tel:[phone] Referring Provider: Miri Amaya, [address] [place] [address] [address] [place], [address]. [phone] [address], [facility], [address], [place], [place], [address], [place] tel:[phone] [facility] No Information 5 Barthold PT [place]. [address], [place], [place], [address], [place]. tel:[phone] Referring Provider: Miri Amaya, [address] [place] [address] [address] [place], [address]. tel:[phone] Est Pt Eval 25 Min [facility], [address], [place], [place], [address], [place] tel:[phone] [facility] Other spondylosis with radiculopathy , lumbar regionObesity senior living (current) use of opiate analgesic Dec- 9 5 Roberson Lashonda. [address], [place], [place], [address], [place]. tel:[phone] Referring Provider: Miri Amaya, [address] [place] [address] [address] [place], [place], [address]. [phone] [facility], [address], [facility], [place], [address], [place] tel:[phone] [facility] No Information Sep-3 0-201 5 Lazaro Zendejas. [address], [place], [place], [address], [place]. tel:[phone] Referring Provider: Aashish Ly, [address], [place], [address]. tel:[phone] [facility], [address], [place], [place], [address], [place] tel:[phone] [facility] No Information Sep-3 0-201 5 Lazaro Zendejas. [address], [place], [place], [address], [place]. tel:[phone] Referring Provider: Miri Amaya, [address] [place] [address] [address] [place], [address]. [phone] Est Pt Eval 25 Min [facility], [address], [place], [place], [address], [place] tel:[phone] [facility] No Information 0 8 5 Openda Too. [address], [place], [address], [place]. tel:[phone] Referring Provider: Miri Amaya, [address] [place] [address] [address] [place], [address]. tel:[phone] [facility], [address], [place], [place], [address], [place] tel:[phone] [facility] No Information 5 Herminia Swapna. [address], [place], [place], [address], [place]. [phone] Referring Provider: Miri Amaya, [address] [place] [address] [address] [place], [address]. tel:[phone] [facility], [address], [place], [place], [address], [place] tel:[phone] [facility] No Information 0 5 Herminia Swapna. [address], [place], [place], [address], [place]. [phone] Referring Provider: Miri Amaya, [address] [place] [address] [address] [place], [address]. tel:[phone] Est Pt Eval [address] [facility], [address], [place], [place], [address], [place] tel:[phone] [facility] No Information 0 9 5 King AZEEM Zendejas. [address], [facility] , [place], [place], [address], [place]. tel:[phone] Referring Provider: Miri Amaya, [address] [place] [address] [address] [place], [address]. tel:[phone] [facility], [address], [place], [place], [address], [place] tel:[phone] [facility] No Information Herminia Swapna. [address], [address], [place], [place], [address], [place]. tel:[phone] Referring Provider: Miri Amaya, [address] [place] [address] [address] [place], [place], [address]. tel:[phone] [facility], [address], [place], [place], [address], [place] tel:[phone] [facility] No Information Herminia Swapna. [address], [place], [place], [address], [place]. [phone] Referring Provider: Miri Amaya, [address] [place] [address] [address] [place], [place], [address]. tel:[phone] [facility], [address], [place], [place], [address], [place] tel:[phone] [facility] No Information 5 Barthold PT [place]. [address], [place], [place], [address], [place]. tel:[phone] Referring Provider: Miri Amaya, [address] [place] [address] [address] [place], [place], [address]. tel:[phone] Est Pt Eval 25 Min [facility], [facility], [address], [place], [place], [address], [place] tel:[phone] [facility] No Information - 5 Lazaro Zendejas. [address], [place], [place], [address], [place]. [phone] Referring Provider: Miri Amaya, [address] [place] [address] [address] [place], [address]. tel:[phone] Est Pt Eval 25 Min [facility], [address], [place], [place], [address], [place] tel:[phone] [facility] No Information King AZEEM Zendejas. [address], [facility] , [place], [place], [address], [place]. tel:[phone] Referring Provider: Miri Amaya, [address] [place] [address] [address] [place], [place], [address]. tel:[phone] Est Pt Eval 25 Min [facility], [address], [place], [place], [address], [place] tel:[phone] [facility] No Information King AZEEM Zendejas. [address], [facility] , [place], [place], [address], [place]. tel:[phone] Referring Provider: Miri Amaya, [address] [place] [address] [address] [place], [address]. tel:[phone] Est Pt Eval 15 Min [facility], [address], [place], [place], [address], [place] tel:[phone] [facility] No Information 5 No Information Referring Provider: Miri Amaya, [address] [place] [address] [address] [place], [address]. tel:[phone] [facility] [place], [address], [place], [address], [place] tel:[phone] [facility] No Information [facility]. [address], [place], [address], [place]. Referring Provider: Ozzie Hyman MD, [address] [place] [facility], , [address]. tel:[phone] [address], [facility], [address], [place], [place], [address], [place] tel:[phone] [facility] No Information Boogie Horne. [address] [place], N [facility], [place], [address]. tel:[phone] Referring Provider: Miri Amaya, [address] [place] [address] [address] [place] [facility] [place], [place], [address]. tel:[phone] Est Pt Eval 15 Min [facility], [facility], [address], [place], [place], [address], [place] tel:[phone] [facility] No Information 5 No Information Referring Provider: Miri Amaya, [address] [place] [address] [address] [place], [address]. tel:[phone] Est Pt Eval 15 Min [facility], [facility], [address], [place], [place], [address], [place] tel:[phone] [facility] No Information No Information Referring Provider: Miri Amaya, [address] [place] [address] [address] [place], [place], [address]. tel:[phone] Est Pt Eval 25 Min [facility], [address], [place], [place], [address], [place] tel:[phone] [facility] No Information 4 Bart Reyes. [address], [place], [address], [place]. tel:[phone] Referring Provider: Miri Amaya, [address] [place] [address] [address] [place], [address]. tel:[phone] [facility], [address], [place], [address], [place] tel:[phone] [facility] No Information 4 Gwyn Hoffman. [address] [place], [facility], [place], [address]. tel:[phone] Referring Provider: Dalton Avila, [address] [place] [facility], , [address]. tel:[phone] [facility], [address], [place], [place], [address], [place] tel:[phone] [facility] No Information 4 Gwyn Hoffman. [address] [place], [facility], [place], [address]. tel:[phone] Referring Provider: Miri Amaya, [address] [place] [address] [address] [place]astro[facility], [address]. tel:[phone] Est Pt Eval 25 Min [facility], [address], [place], [place], [address], [place] tel:[phone] [facility] No Information 4 Vinnie Berrios. [address] [place], [address], [place]. Referring Provider: Miri Amaay, [address] [place] [address] [address] [place], [address]. tel:[phone] [facility], [address], [place], [address], [place] tel:[phone] [facility] No Information 4 Gwyn Hoffman. [address] [place], [facility], [place], [address]. tel:[phone] Referring Provider: Dalton Avila, [address] [place] [facility], , [address]. [phone] [facility], [address], [place], [place], [address], [place] tel:[phone] [facility] No Information 4 Gwyn Hoffman. [address] [place], [facility], [place], [address]. tel:[phone] Referring Provider: Miri Amaya, [address] [place] [address] [address] [place], [address]. [phone] Est Pt Eval [address] [facility], [address], [place], [place], [address], [place] tel:[phone] [facility] No Information 4 Vinnie Berrios. [address] [place], [address], [place]. Referring Provider: Miri Amaya, [address] [place] [address] [address] [place], [address]. tel:[phone] [facility], [address], [place], [place], [address], [place] tel:[phone] [facility] No Information Ascencion Mcelroy. [address], [place], [place], [address], [place]. tel:[phone] Referring Provider: Miri Amaya, [address] [place] [address] [address] [place], [address]. tel:[phone] Est Pt Eval 25 Min [facility], [address], [place], [place], [address], [place] tel:[phone] [facility] No Information No Information Referring Provider: Miri Amaya, [address] [place] [address] [address] [place], [address]. tel:[phone] Est Pt Eval 25 Min [facility], [address], [place], [place], [address], [place] tel:[phone] [facility] No Information No Information Referring Provider: Miri Amaya, [address] [place] [address] [address] [place]astroent[facility] [place], [address]. tel:[phone] Est Pt Eval 15 Min [facility], [address], [place], [place], [address], [place] tel:[phone] [facility] No Information 4 No Information Referring Provider: Miri Amaya, [address] [place] [address] [address] [place], [address]. tel:[phone] [facility], [address], [place], [place], [address], [place] tel:[phone] [facility] No Information No Information Referring Provider: Miri Amaya, [address] [place] [address] [address] [place], [address]. tel:[phone] Est Pt Eval 25 Min [facility], [facility], [address] [facility], [place], [address], [place] tel:[phone] [facility] No Information [facility]. [address] [place], [address], [place]. Referring Provider: Miri Amaya, [address] [place] [address] [address] [place], [address]. tel:[phone] Offic/outpt E&m Estab Mod-hi 2 Vaugh[address], [facility], [address], [address], [place] tel:[phone] [facility] No Information Vinnie Quintanilla [facility]. [address] [place] [address], [address], [place]. Referring Provider: Miri Amaya, [address] [place] [address] [address] [place], [address]. tel:[phone], [facility], [address] [facility], [place], [address], [place] tel:[phone] [facility] No Information No Information Referring Provider: Miri Amaya, [address] [place] [address] [address] [place]astroent[place], [address]. tel:[phone] Offic/outpt E&m Estab Mod-hi [address] [facility], [address], [place], [place], [address], [place] tel:[phone] [facility] No Information 4 [facility] [place] [facility]. [address] [place], [address], [place]. Referring Provider: Miri Amaya, [address] [place] [address] [address] [place], [address]. tel:[phone] Offic/outpt E&m Estab Mod-hi [address], [facility], [address], [place], [place], [address], [place] tel:[phone] [facility] No Information 4 [place] [facility]. [address] [place], [address], [place]. Referring Provider: Miri Amaya, [address] [place] [address] [address] [place], [address]. tel:[phone] [facility], [facility], [address] [facility] [address], [place], [place], [address], [place] tel:[phone] [facility] No Information 4 No Information Referring Provider: Miri Amaya, [address] [place] [address] [address] [place], [address]. tel:[phone] [facility], [address], [place], [address], [place] tel:[phone] [facility] No Information 4 Lazaro Zendejas. [address], [place], [place], [address], [place]. tel:[phone] Referring Provider: Miri Amaya, [address] [place] [address] [address] [place], [address]. tel:[phone] Offic/outpt E&m New Mod-hi [address] [facility], [facility], [address], [place], [place], [address], [place] tel:[phone] [facility] No Information 4 Vinnie Berrios. [address] [facility], [facility] [place], [address], [place]. Referring Provider: Miri Amaya, [address] [facility] [address] [place], [address]. tel:[phone] Family History Family Member Type Diagnosis Age At Onset N/A Problem (finding) No Significant Family H istory Payers Payer name Insurance type Covered green party ID Authorfarhana radha(s) [employer] Medicare PPO 16 [id number] Social History Type Description Quantity Date Captured [...]
--- OUTSIDE RECORDS SUMMARY | 2023-02-07 09:55 | XMS_ITS | Continuity of Care Document ---
Author Name Unknown Organization [facility] Address [facility] [place] [address] Phone Care Team Providers Care Theology Professor Name Role Phone Santi Rojas MD Unavailable [...] Diagnoses Date Provider Providers Copied on Encounter [facility], [address] [place], [place] [address], [place], [id number] tel:[phone] [facility] No Information 3 Bob Hancock. [address] [place] [address], [place], [address]. tel: [phone] [facility], [address] [place], [place] [address], [place], [id number] tel:[phone] [facility] Epigastric Pain (chief complaint)H x H-pylori (chief complaint) Abdominal Pain, EpigastricDyspepsi aChronic Gastritis 1 Bob Hancock. [address] [place] [address], [place], [address]. tel: [phone] [facility], [address] [place] [address] [place], [place], [id number] tel:[phone] [facility] No Information 1 Bob Hancock. [address] [place] [address], [place], [address]. tel: [phone] [facility], [address] [place] [address] [place], [place], [id number] tel:[phone] [facility] No Information 1 Bob Hancock. [address] [place] [address], [place], [address]. tel: [phone] Family History Family Member Type Diagnosis Age At Onset Father Problem (finding) Father Problem (finding) pulmonary emphysema (Ca use Of ) Sister Problem (finding) Lymphoma Payers Payer name Insurance type Covered democrat ID Authorracheal garcia(s) Medicare [id number] Social History Type Description Quantity Date Captured [...]
== END 2023-02-06 18:53 | disposition home or self-care (01) ==
LOC: AMB 02-07 09:52
PROVIDERS: PCP Internal Medicine; Visit Provider Emergency Medicine
DX: R06.09 Other forms of dyspnea (principal)
CPT/HCPCS: A0425; A0434

== ENCOUNTER 2023-03-07 11:34 | Emergency (ER) | payer OTHER, MEDICAID, SELFPAY ==
[2023-03-07 11:57] VITALS: BP 114/72; PULSE 91; RESP 18; TEMP 36.9; O2SAT 94; BMI 25.7
--- NOTE | 2023-03-07 12:11 | CRLHL7_ITS ---
For Patients: As a result of the Century Cures Act, medical imaging exams and procedure reports are released immediately into your electronic medical record. You may view this report before your referring provider. If you have questions, please contact your health care provider. INDICATION: LEFT LEG SWELLING, PREVIOUS DVT 1 MONTH AGO TECHNIQUE: Ultrasound venous duplex lower left extremity. Compression venous exam was performed using alston-scale, color Doppler, and spectral Doppler analysis. COMPARISON: DVT study on 02/04/2023 FINDINGS: Deep veins: Sonographic imaging demonstrates the left common femoral, deep femoral, superficial femoral, popliteal, posterior tibial, peroneal and the contralateral right common femoral veins to be fully compressible with normal color Doppler blood flow. Superficial veins: Greater saphenous vein is fully compressible. Similar-appearing mildly complex popliteal cyst measuring 5.5 x 1.8 x 3.0 centimeters. IMPRESSION: 1. No deep vein thrombosis. Previously visualized DVT in the left femoral vein has resolved. 2. Similar-appearing left Mahoney`s cyst. Dictated by Major Noland MD @ 03/07/2023 2:04:27 PM (Electronically Signed)
--- NOTE | 2023-03-07 12:17 | ED.GENADULT ---
HPI - General Adult General Date Seen: 03/07/23 Chief complaint: Extremity Pain/Injury, Lower Stated complaint: Swollen L leg/foot Time Seen by Provider: 03/07/23 11:36 Source: patient Mode of arrival: ambulatory Limitations: no limitations History of Present Illness HPI narrative: patient is a 77-year-old male with a history of AFib with RVR, recent PE and DVT 1 month ago, left hip surgery 6 weeks ago, currently on Eliquis presenting to the emergency department for left leg swelling. he had hip surgery 6 weeks ago and after that developed a blood clot in his legs and then developed a pulmonary embolism. This happened at the end of January. Since then he has been on Eliquis and he states he is having large amount of edema to his left leg. Does note a gets better when he keeps his leg up but the swelling gets worse as the day goes on as he moves around. States the amount of swelling seems to be getting worse. is having pain in his foot in the lower extremity due to the amount of swelling. He has not had issues with this prior to the surgery and blood clots. Denies fevers, chills, chest pain, shortness of breath, weakness, lightheadedness, dizziness, nausea / vomiting. he states the finding came in today because the physical therapist that helps him at home told him to come in to get evaluated. No other concerns noted at this time Related Data Home Medications Medication Instructions Recorded Confirmed metoprolol succinate 100 mg 100 mg PO DAILY 10/11/21 02/26/23 tablet,extended release 24 hr acetaminophen 500 mg tablet 1,000 mg PO Q6H 11/09/21 02/26/23 fexofenadine 180 mg tablet 180 mg PO DAILY 11/10/21 02/26/23 (Joanna Allergy) melatonin 5 mg capsule 10 mg PO HS PRN 11/10/21 02/26/23 cpap 01/17/22 02/26/23 clopidogrel 75 mg tablet 75 mg PO DAILY 04/18/22 02/26/23 famotidine 20 mg tablet 20 mg PO DAILY 01/09/23 02/26/23 cyanocobalamin (vitamin B-12) 1,000 mcg PO DAILY Anemia 01/21/23 02/26/23 1,000 mcg tablet losartan 25 mg tablet 25 mg PO DAILY Hypertension 01/21/23 02/26/23 roflumilast 500 mcg tablet 500 mcg PO DAILY Anemia 01/21/23 02/26/23 (Daliresp) tiotropium bromide 18 mcg capsule 1 cap inhalation DAILY COPD 01/21/23 02/26/23 with inhalation device (Spiriva with HandiHaler) ipratropium bromide 21 mcg (0.03 2 spray intranasal TID PRN allergy 02/04/23 02/26/23 %) nasal spray symptoms methimazole 5 mg tablet 5 mg PO DAILY 02/04/23 02/26/23 nitroglycerin 0.4 mg sublingual 0.4 mg sublingual Q5-15M PRN Angina 02/04/23 02/26/23 tablet sennosides 8.6 mg-docusate sodium 2 tab-cap PO DAILY PRN constipation 02/04/23 02/26/23 50 mg tablet (Senna-S) apixaban 5 mg tablet (Eliquis) 5 mg PO BID 03/05/23 carvedilol 12.5 mg tablet 12.5 mg PO BID 03/05/23 finasteride 5 mg tablet 5 mg PO QDAY 03/05/23 tamsulosin 0.4 mg capsule 0.4 mg PO QHS 03/05/23 Previous Rx's Medication Instructions Recorded budesonide-formoterol HFA 80 2 puff inhalation BID COPD #3 ea 08/20/22 mcg-4.5 mcg/actuation aerosol inhaler (Symbicort) ipratropium 0.5 mg-albuterol 3 mg 3 ml inhalation TID PRN copd 09/03/22 (2.5 mg base)/3 mL nebulization #1,080 mL soln allopurinol 100 mg tablet 100 mg PO DAILY #90 tabs 09/27/22 rosuvastatin 40 mg tablet 40 mg PO DAILY #90 tabs 10/04/22 omeprazole 20 mg capsule,delayed 20 mg PO DAILY #90 caps 11/19/22 release albuterol sulfate 90 mcg/actuation 2 puff inhalation Q4H PRN 01/02/23 aerosol inhaler shortness of breath or wheezing #8.5 grams triamcinolone acetonide 0.1 % 1 applic topical BID #80 grams 01/02/23 topical cream oxycodone 5 mg tablet 5 mg PO BID pain #60 tabs 02/15/23 cholecalciferol (vitamin D3) 25 50 mcg (2 x 25 mcg (1,000 unit)) 02/26/23 mcg (1,000 unit) chewable tablet PO DAILY Low Vitamin D #90 tabs (Vitamin D3) fluticasone propionate 50 2 spray intranasal BID Allergies 02/26/23 mcg/actuation nasal #48 grams spray,suspension Allergies Allergy/AdvReac Type Severity Reaction Status Date / Time bupropion Allergy Unknown tinnitus Verified 02/26/23 11:10 isosorbide Allergy Unknown Headache Verified 02/26/23 11:10 spironolactone Allergy Unknown gynecomasti Verified 02/26/23 11:10 a topiramate Allergy Unknown doses Verified 02/26/23 11:10 higher than 50 daily not tolerated venlafaxine Allergy Unknown Anxiety Verified 02/26/23 11:10 Review of Systems Status of ROS: Reports: 10 or more systems reviewed and unremarkable except as noted in History and below [facility] Medical History Gout ?M10.9 - Gout, unspecified (ICD-10) Atrial fibrillation with RVR ?I48.91 - Unspecified atrial fibrillation (ICD-10) Urinary retention ?R33.9 - Retention of urine, unspecified (ICD-10) Osteoarthritis of left hip ?M16.12 - Unilateral primary osteoarthritis, left hip (ICD-10) TMJ (temporomandibular joint syndrome) ?M26.609 - Unspecified temporomandibular joint disorder, unspecified side (ICD-10) Lumbar degenerative disc disease ?M51.36 - Other intervertebral disc degeneration, lumbar region (ICD-10) Low back pain ?M54.50 - Low back pain, unspecified (ICD-10) COPD (chronic obstructive pulmonary disease) ?J44.9 - Chronic obstructive pulmonary disease, unspecified (ICD-10) Chronic low back pain ?M54.50 - Low back pain, unspecified (ICD-10) ?G89.29 - Other chronic pain (ICD-10) Right shoulder pain ?M25.511 - Pain in right shoulder (ICD-10) Lesion of right external ear ?H61.91 - Disorder of right external ear, unspecified (ICD-10) Thrush, oral ?B37.0 - Candidal stomatitis (ICD-10) Insomnia ?G47.00 - Insomnia, unspecified (ICD-10) Anemia ?D64.9 - Anemia, unspecified (ICD-10) Angina at rest ?I20.8 - Other forms of angina pectoris (ICD-10) Hypertension ?I10 - Essential (primary) hypertension (ICD-10) Seasonal allergic rhinitis ?J30.2 - Other seasonal allergic rhinitis (ICD-10) Peripheral vascular disease ?I73.9 - Peripheral vascular disease, unspecified (ICD-10) Obstructive sleep apnea treated with continuous positive airway pressure (CPAP) ?G47.33 - Obstructive sleep apnea (adult) (pediatric) (ICD-10) ?Z99.89 - Dependence on other enabling machines and devices (ICD-10) Monoclonal gammopathy ?D47.2 - Monoclonal gammopathy (ICD-10) Hyperlipidemia ?E78.5 - Hyperlipidemia, unspecified (ICD-10) History of malignant neoplasm of skin ?Z85.828 - Personal history of other malignant neoplasm of skin (ICD-10) History of depression ?Z86.59 - Personal history of other mental and behavioral disorders (ICD-10) History of calcium pyrophosphate deposition disease (CPPD) ?Z87.39 - Personal history of other diseases of the musculoskeletal system and connective tissue (ICD-10) History of adenomatous polyp of colon (02/12/18) ?Z86.010 - Personal history of colonic polyps (ICD-10) Gastroesophageal reflux disease ?K21.9 - Gastro-esophageal reflux disease without esophagitis (ICD-10) Enlarged prostate ?N40.0 - Benign prostatic hyperplasia without lower urinary tract symptoms (ICD-10) Coronary artery disease ?I25.10 - Atherosclerotic heart disease of [place] coronary artery without angina pectoris (ICD-10) Congestive heart failure ?I50.9 - Heart failure, unspecified (ICD-10) Chronic, continuous use of opioids ?F11.90 - Opioid use, unspecified, uncomplicated (ICD-10) Chronic right shoulder pain (2018) ?M25.511 - Pain in right shoulder (ICD-10) ?G89.29 - Other chronic pain (ICD-10) Chronic pancreatitis ?K86.1 - Other chronic pancreatitis (ICD-10) Chronic obstructive pulmonary disease ?J44.9 - Chronic obstructive pulmonary disease, unspecified (ICD-10) Chronic neck pain ?M54.2 - Cervicalgia (ICD-10) ?G89.29 - Other chronic pain (ICD-10) Carpal tunnel syndrome of right wrist ?G56.01 - Carpal tunnel syndrome, right upper limb (ICD-10) Aortic aneurysm ?I71.9 - Aortic aneurysm of unspecified site, without rupture (ICD-10) Hyperthyroidism ?E05.90 - Thyrotoxicosis, unspecified without thyrotoxic crisis or storm (ICD-10) Surgical History History of total left hip replacement (01/21/23) ?Z96.642 - Presence of left artificial hip joint (ICD-10) H/O excision of ganglion cyst (04/25/22) ?Z98.890 - Other specified postprocedural states (ICD-10) History of carpal tunnel surgery of left wrist (04/25/22) ?Z98.890 - Other specified postprocedural states (ICD-10) Status post coronary angiogram ?Z98.890 - Other specified postprocedural states (ICD-10) History of carpal tunnel surgery of right wrist (11/30/20) ?Z98.890 - Other specified postprocedural states (ICD-10) S/P cubital tunnel release (11/30/20) ?Z98.890 - Other specified postprocedural states (ICD-10) Status post six vessel coronary artery bypass graft (1996) ?Z95.1 - Presence of aortocoronary bypass graft (ICD-10) History of umbilical hernia repair (04/16/13) ?Z98.890 - Other specified postprocedural states (ICD-10) ?Z87.19 - Personal history of other diseases of the digestive system (ICD-10) History of spinal surgery ?Z98.890 - Other specified postprocedural states (ICD-10) History of rotator cuff surgery (2007) ?Z98.890 - Other specified postprocedural states (ICD-10) History of operative procedure on hip (04/01/18) ?Z98.890 - Other specified postprocedural states (ICD-10) History of endarterectomy (2012) ?Z98.890 - Other specified postprocedural states (ICD-10) History of colonoscopy with polypectomy ?Z98.890 - Other specified postprocedural states (ICD-10) ?Z86.010 - Personal history of colonic polyps (ICD-10) History of cholecystectomy ?Z90.49 - Acquired absence of other specified parts of digestive tract (ICD-10) History of carpal tunnel surgery of left wrist (2007) ?Z98.890 - Other specified postprocedural states (ICD-10) History of appendectomy ?Z90.49 - Acquired absence of other specified parts of digestive tract (ICD-10) History of aortic aneurysm repair (2012) ?Z98.890 - Other specified postprocedural states (ICD-10) ?Z86.79 - Personal history of other diseases of the circulatory system (ICD-10) Family History Father Asthma Sister Asthma Breast cancer Lung cancer Mother Dementia Rheumatoid arthritis Social History Narrative: , five daughters, does not use illicit drugs, nonsmoker. Occasional alcohol. History of some cannabis use but not recently and not regularly. Lives in [facility]. He has been in [facility] for the last 2 weeks for rehab following his hip surgery. What is your current living situation?: I presently have a place to live Problems where you live: no known problems Problems where you live details: na In the past 12 months, utilities in danger of being shut off: no In past 12 months, lack of transportation kept you from medical appts, meetings, work, or getting things needed for daily living: no In the past 12 mos, have been you worried that your food would run out before you had money to buy more?: never true In the past 12 mos, the food you bought just didn't last and you didn't have money to buy more?: never true Highest level of school completed/degree received: 12th grade, no diploma Smoking Status: Former smoker Do you use any of these nicotine containing products: None Second hand tobacco smoke exposure: No How often do you have a drink containing alcohol: monthly or less How many standard drinks containing alcohol do you have on a typical day: 1 or 2 How often do you have six or more drinks on one occasion: Less than monthly AUDIT-C Alcohol total score: 2 Non-prescribed substance use: denies use Non-prescribed substance use details: was trying THC gummies but not effective and hasn't had them in a while. Caffeine: Yes How often does anyone, including family, friends and others, physically hurt you: never How often does anyone, including family, friends and others, insult or talk down to you: never How often does anyone, including family, friends and others, threaten you with harm: never How often does anyone, including family, friends and others, scream or curse at you: never Little interest or pleasure in doing things: more than half the days Feeling down, depressed, or hopeless: several days service: Yes Exam Narrative: Exam Narrative: Const: Well-nourished, Well-developed, in Now distress Eyes: PERRL, no conjunctival injection, and symmetrical lids HENT: Atraumatic external nose and ears. Moist mucous membranes. Neck: Symmetric, trachea midline, No thyromegaly. CVS: RRR, No murmurs or gallops. Peripheral pulses 2+ and equal in all extremities RESP: Unlabored respiratory effort. Clear to auscultation bilaterally. GI: Nontender/Nondistended, No rebound or guarding. MSK:Extremities w/o deformity, Normal Active ROM, +2 left lower extremity pitting edema Skin: Warm, Dry. No rashes or lesions. Neuro: Normal Muscle tone, No focal neurological deficits. Psych: Awake, Alert, & Oriented x3. Appropriate mood and affect. Const: Vital Signs, click to edit/add: Vital Signs - 24 hr 03/07/23 11:57 Temperature 98.4 F Pulse Rate [Right Pulse Oximeter] 91 Respiratory Rate 18 Blood Pressure [Ri ght Upper Arm] 114/72 Pulse Oximetry 94 Oxygen Delivery Me thod Room Air Course Vital Signs Vital signs: Initial Vital Signs Temperature 98.4 F 03/07/23 11:57 Temperature Source Temporal Artery Scan 03/07/23 11:57 Pulse Rate 91 03/07/23 11:57 Respiratory Rate 18 03/07/23 11:57 Blood Pressure 114/72 03/07/23 11:57 Blood Pressure Mean 86 03/07/23 11:57 Blood Pressure Position Sitting 03/07/23 11:57 Pulse Oximetry 94 03/07/23 11:57 Oxygen Delivery Method Room Air 03/07/23 11:57 Vital Signs Temperature 98.4 F 03/07/23 11:57 Pulse Rate 91 03/07/23 11:57 Respiratory Rate 18 03/07/23 11:57 Blood Pressure 114/72 03/07/23 11:57 Pulse Oximetry 94 03/07/23 11:57 Oxygen Delivery Method Room Air 03/07/23 11:57 Temperature 98.4 F 03/07/23 11:57 Pulse Rate 91 03/07/23 11:57 Respiratory Rate 18 03/07/23 11:57 Blood Pressure 114/72 03/07/23 11:57 Pulse Oximetry 94 03/07/23 11:57 Oxygen Delivery Method Room Air 03/07/23 11:57 Medical Decision Making MDM Narrative Medical decision making narrative: Patient is a 77-year-old male presenting for left lower extremity edema. Edema has been going on since his surgery and previous DVTs the occurred over the past month and a half. He is taking Eliquis as directed. While DVTs usually take a few months to resolve completely we will repeat the ultrasound to make sure it is not getting worse. This no signs of cellulitis at this time. 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 Denies any other symptoms other than the leg swelling and pain. He does have some mild swelling to the right leg but not nearly as much. While there could be some CHF related causes of his lower extremity edema since it is mostly on the left side seems more likely related to his recent procedures and dependent edema. I informed him and his daughter the importance of using compression stockings and they state they will go and pick some up today. Patient be discharged home. Discharge Plan Discharge Clinical Impression: Unilateral edema of lower extremity Patient Disposition: Home, Self-Care Condition: Stable Instructions: Leg Edema (ED) Additional Instructions: Follow-up with the primary care provider. Make sure you wear a compression stocking to the legs during the day. Can have them off at night when your legs are elevated. Return to emergency department for new or worsening symptoms Prescriptions: No Action acetaminophen 500 mg tablet 1,000 mg PO Q6H Rx Instructions: NO MORE THAN 4000 MG/DAY fexofenadine [Joanna Allergy] 180 mg tablet 180 mg PO DAILY melatonin 5 mg capsule 10 mg PO HS PRN (DME) cpap 0 .Route .MEDSUPPLY clopidogrel 75 mg tablet 75 mg PO DAILY Hold Instructions: Resume on 01/27/23. May restart this medication after completing Xarelto. famotidine 20 mg tablet 20 mg PO DAILY metoprolol succinate 100 mg tablet extended release 24 hr 100 mg PO DAILY sennosides-docusate sodium [Senna-S] 8.6-50 mg tablet 2 tab-cap PO DAILY PRN (Reason: constipation) nitroglycerin 0.4 mg tablet, sublingual 0.4 mg sublingual Q5-15M PRN (Reason: Angina) methimazole 5 mg tablet 5 mg PO DAILY ipratropium bromide 21 mcg (0.03 %) spray,non-aerosol 2 spray intranasal TID PRN (Reason: allergy symptoms) cyanocobalamin (vitamin B-12) 1,000 mcg tablet 1,000 mcg PO DAILY losartan 25 mg tablet 25 mg PO DAILY tiotropium bromide [Spiriva with HandiHaler] 18 mcg capsule, w/inhalation device 1 cap inhalation DAILY roflumilast [Daliresp] 500 mcg tablet 500 mcg PO DAILY budesonide-formoterol [Symbicort] 80-4.5 mcg/actuation HFA aerosol inhaler 2 puff inhalation BID Qty: 3 3RF ipratropium-albuterol 0.5 mg-3 mg(2.5 mg base)/3 mL solution for nebulization 3 ml inhalation TID PRN (Reason: copd) Qty: 1080 3RF allopurinol 100 mg tablet 100 mg PO DAILY Qty: 90 2RF rosuvastatin 40 mg tablet 40 mg PO DAILY Qty: 90 3RF omeprazole 20 mg capsule,delayed release(DR/EC) 20 mg PO DAILY Qty: 90 0RF albuterol sulfate 90 mcg/actuation HFA aerosol inhaler 2 puff inhalation Q4H PRN (Reason: shortness of breath or wheezing) Qty: 8.5 2RF triamcinolone acetonide 0.1 % cream 1 applic topical BID Qty: 80 0RF oxycodone 5 mg tablet 5 mg PO BID MDD 6 Qty: 60 0RF Rx Instructions: plus 5mg q4h prn fluticasone propionate 50 mcg/actuation spray,suspension 2 spray intranasal BID Qty: 48 0RF cholecalciferol (vitamin D3) [Vitamin D3] 25 mcg (1,000 unit) tablet,chewable 50 mcg PO DAILY Qty: 90 3RF carvedilol 12.5 mg tablet 12.5 mg PO BID Rx Instructions: must administer with a meal/food Eliquis 5 mg tablet 5 mg PO BID finasteride 5 mg tablet 5 mg PO QDAY tamsulosin 0.4 mg capsule 0.4 mg PO QHS Follow Up/Referrals: Yordy Morin MD [Primary Care Provider] - Stand Alone [facility]
== END 2023-03-07 14:26 | disposition home or self-care (01) ==
PROVIDERS: Emergency Provider Student in an Organized Health Care Education/Training Program; PCP Internal Medicine
DX: R60.9 Edema, unspecified (principal)
CPT/HCPCS: 93971; 99283; 99284

== ENCOUNTER 2023-05-31 13:30 | Outpatient (CLI) | payer OTHER, MEDICAID, SELFPAY ==
--- NOTE | 2023-05-31 14:00 | US_ITS ---
Patient: KANDY CANTRELL Facility:?[facility] Patient ID:?[id number] Site Patient ID:?[id number]. Site :?[id number] Study:?US-Extremity left venous-05/31/2023 2:28:41 PM Ordering Physician:Trevor Schreiber Final Report: INDICATION: Lower leg swelling and pain. COMPARISON: Left lower extremity venous ultrasound 03/07/2023. TECHNIQUE: A compression venous ultrasound exam was performed of the left lower extremity using alston-scale imaging, color Doppler, and spectral Doppler analysis. FINDINGS: Sonographic imaging of the left lower extremity demonstrates normal compressibility and color Doppler venous blood flow within the common femoral, femoral, deep femoral, and proximal greater saphenous veins. At a lower level the popliteal, peroneal, and posterior tibial veins also show normal compressibility and color Doppler venous blood flow. IMPRESSION: Negative for acute DVT in the left lower extremity. Dictated by Chhaya Sauceda MD @ 06/02/2023 12:22:02 AM Signed by:?Chhaya Sauceda MD @06/02/2023 12:22:02 AM (Electronic Signature)
== END 2023-05-31 13:31 | disposition home or self-care (01) ==
LOC: US 13:32
PROVIDERS: PCP Internal Medicine; Visit Provider Physician Assistant Surgical
DX: R22.42 Localized swelling, mass and lump, left lower limb (principal); M79.605 Pain in left leg; R60.0 Localized edema; I26.99 Other pulmonary embolism without acute cor pulmonale; I82.409 Acute embolism and thrombosis of unspecified deep veins of unspecified lower extremity
CPT/HCPCS: 93971

== ENCOUNTER 2023-06-05 08:05 | Outpatient (CLI) | payer OTHER, SELFPAY | END 2023-06-05 08:06 | disposition home or self-care (01) | LOC: NFLDREF 06-07 10:31 | PROVIDERS: PCP Internal Medicine; Referring Provider Internal Medicine; Visit Provider Internal Medicine | DX: E05.90 Thyrotoxicosis, unspecified without thyrotoxic crisis or storm (principal); I26.99 Other pulmonary embolism without acute cor pulmonale | CPT/HCPCS: 84443 ==

== ENCOUNTER 2023-09-26 14:04 | Emergency (ER) | payer OTHER, MEDICAID, SELFPAY ==
[2023-09-26] VITALS (15 sets, daily range): BP systolic 101–112; BP diastolic 55–86; PULSE 55–86; RESP 18; TEMP 36.8; O2SAT 95–100; BMI 23.8
--- NOTE | 2023-09-26 14:34 | CRLHL7_ITS ---
For Patients: As a result of the Century Cures Act, medical imaging exams and procedure reports are released immediately into your electronic medical record. You may view this report before your referring provider. If you have questions, please contact your health care provider. Indication: Shortness of breath Technique: Chest 2 views Comparison: Chest x-ray 09/18/2023 Findings/Impression: Cardiovascular and mediastinum: Normal heart size with atherosclerotic calcification. Lungs and pleural spaces: Mild hyperinflation without pleural effusion or pneumothorax. No focal consolidation or significant interval change compared to the prior exam. Bones and soft tissues: Status post median sternotomy. Dictated by Roe Arneas MD @ 09/26/2023 3:10:05 PM (Electronically Signed)
--- OUTSIDE RECORDS SUMMARY | 2023-09-26 14:48 | XMS_ITS | Continuity of Care Document ---
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 Name Role Phone Minesh Fonseca Unavailable Unavailable Procedures Procedure Date Office/Outpatient Visit,[facility] [place] Advance Directives Directive Yes / No Effective Date File Name No Information Encounters Encounter Description Practice Location Reason(s) For Visit Diagnoses Date Provider Providers Copied on Encounter Office/Outpat ient Visit,, [facility], [address], [place], [place], [id number], [place] tel:[phone] [facility] Other intervertebral disc degeneration, lumbar region 2 Chavo Edge. [facility], [address] [place] [address], [address], [place], [place], [id number] , [place]. tel:[phone] Referring Provider: Arnoldo Meyers, [facility] [address] [place] [address], [address]. tel:[phone] Family History Family Member Type Diagnosis Age At Onset No Information Payers Payer name Insurance type Covered republican ID Authoriza tion(s) [employer] Medicare Gold Choice Sienna LAZO [id number] Social History Type Description Quantity Date [...]
--- OUTSIDE RECORDS SUMMARY | 2023-09-26 14:48 | XMS_ITS | Encounter Summary ---
Author Organization [facility] Address [address] [place] [phone] Care Team Providers Care Pediatric Sports Medicine Specialist Name Role Phone Unavailable Primary Care Provider Unavailabl e Reason for Referral * Outpatient (Routine) - Authorized Specialty Diagnoses / Procedures Referred By Contac t Referred To Contact Research Diagnoses Bronchitis Chronic (HCC) Chronic Obstructive Pulmonary Disease (HCC) Fox Alvarez M.D. [address] [place] [phone] [facility] Referral ID Status Reason Start Date Expiration Date V isits Requested Visits Authorized [id number] Authorized 09/19/2023 03/20/2025 1 1 Scheduling Instructions IRB [id number] * Outpatient (Routine) - Authorized Specialty Diagnoses / Procedures Referred By Contac t Referred To Contact Pulmonary Medicine Diagnoses Bronchitis Chronic (HCC) Chronic Obstructive Pulmonary Disease (HCC) Fox Alvarez M.D. [address] [place] [address] [facility] Referral ID Status Reason Start Date Expiration Date Visits Requested Visits Authorized [id number] Authorized Specialty Services Required 09/19/2023 03/20/2025 1 1 Scheduling Instructions Rivera to schedule, IRB [id number] Encounter Details Date Type Department Care Team (Late st Contact Info) Description 09/19/2023 Orders Only Division of Pulmonary Medicine in [place], [place] [address] [place] [phone] LouiseRivera Mandy [address] [place] [phone] Bronchitis Chronic (HCC) (Primary Dx); Chronic Obstructive Pulmonary Disease (HCC) Social History Tobacco Use Types Packs/Day Years Used Date Smoking Tobacco: Never Assessed Nutrition Answer Date Recorded Nutrition: EVOO Fat Source Unknown 05/16 Nutrition: Servings of Fruits/Vegetables per Day Not on file 05/16/2020 Dental Answer Date Recorded Dental: Regular Dentist Unknown 05/19/19 21 Sex and Gender Information Value Date Recorded Sex Assigned at Not on file Gender Identity Not on file Sexual Orientation Not on file documented as of this encounter Plan of Treatment Upcoming Encounters Date Type Department Care Team (Late st Contact Info) Description 10/08/2023 7:30 AM CDT Diagnostic Division of Pulmonary Medicine in [place], [place] [address] [place] [phone] Fox Alvarez M.D. [address] [place] [phone] 10/08/2023 9:30 AM CDT Comprehensive Visit Division of Pulmonary Medicine in [place], [place] [address] [place] [phone] Brooke Sanabria M.D. [address] [place] [phone] 10/08/2023 11:50 AM CDT Appointment Department of Laboratory Medicine and Pathology, [facility], in [place], [place] [address] [place] [phone] Fox Alvarez M.D. [address] [place] [phone] Scheduled Orders Name Type Priority Associated Diagnoses Orde r Schedule Nicotine and Metabolites Lab Routine Bronchitis Chronic (HCC) Chronic Obstructive Pulmonary Disease (HCC) Expected: 09/30/2023, Expires: 12/19/2024 Pulmonary Function Tests PFT Routine Bronchitis Chronic (HCC) Chronic Obstructive Pulmonary Disease (HCC) Expected: 09/30/2023, Expires: 12/19/2024 Scheduled Referrals Name Type Priority Associated Diagnoses Orde r Schedule Pulmonary Medicine - General consult (clinic) Outpatient Referral Routine Bronchitis Chronic (HCC) Chronic Obstructive Pulmonary Disease (HCC) Expected: 09/30/2023, Expires: 12/19/2024 Research Associate Civil Engineer office visit (clinic) Outpatient Referral Routine Bronchitis Chronic (HCC) Chronic Obstructive Pulmonary Disease (HCC) Expected: 09/30/2023, Expires: 12/19/2024 documented as of this encounter Visit Diagnoses Diagnosis Bronchitis Chronic (HCC)- Primary Chronic Obstructive Pulmonary Disease (HCC) documented in this encounter
--- OUTSIDE RECORDS SUMMARY | 2023-09-26 14:48 | XMS_ITS | Continuity of Care Document ---
Author Organization [facility] Address [facility] [place] [address] Phone Care Team Providers Care Commercial Stripper Name Role Phone Santi Rojas MD Unavailable Unavailable Allergies, Adverse Reactions, Alerts Substance Reaction Status Criticality No Known allergies Medications Medication Instructions Dosage Effective Dates (start - stop) Status Comments sucralfate 1 gram Tab take 1 tablet (1G) by oral route 4 times every day on an empty stomach 1 hour before meals and at bedtime 1 G - Active bupropion HCl SR 150 mg Tab take 1 tablet (150MG) by oral route every day 150 MG - Active omeprazole 20 mg Cap, Delayed Release take 1 capsule (20MG) by oral route every day before a meal 20 MG - Active Ventolin HFA 90 mcg/Actuation Aerosol Inhaler inhale 2 puff by inhalation route every 4 - 6 hours as needed - Active ATENOLOL (unknown strength) take 1 tablet by oral route every day Not Available - Active LIPITOR (unknown strength) take 1 tablet by oral route every day Not Available - Active Procedures Procedure Date UPPER GI ENDOSCOPY/ BX UPPER GI ENDOSCOPY/ BX TISSUE EXAM BY PATHOLOGIST Advance Directives Directive Yes / No Effective Date File Name No Information Encounters Encounter Description Practice Location Reason(s) For Visit Diagnoses Date Provider Providers Copied on Encounter [facility], [address] [place], [place] [address], [place], [id number] tel:[phone] [facility] No Information 3 Bob Hancock. [address] [place] [address], [place], [id number]. tel: [phone] [facility], [address] [place], [place] [address], [place], [id number] tel:[phone] [facility] Epigastric Pain (chief complaint)H x H-pylori (chief complaint) Abdominal Pain, EpigastricDyspepsi aChronic Gastritis 1 Bob Hancock. [address] [place] [address], [place], [id number]. tel: [phone] [facility], [address] [place], [place] [address], [place], [id number] tel:[phone] [facility] No Information 1 Bob Hancock. [address] [place] [address], [place], [id number]. tel: [phone] [facility], [address] [place], [place] [address], [place], [id number] tel:[phone] [facility] No Information 1 Bob Hancock. [address] [place] [address], [place], [id number]. tel: [phone] Family History Family Member Type Diagnosis Age At Onset Father Problem (finding) Father Problem (finding) pulmonary emphysema (Ca use Of ) Sister Problem (finding) Lymphoma Payers Payer name Insurance type Covered republican [place] Authorracheal garcia(s) Medicare [id number] Social History Type Description Quantity Date Captured [...]
--- OUTSIDE RECORDS SUMMARY | 2023-09-26 14:48 | XMS_ITS | Continuity of Care Document ---
Author Organization [facility] Address [address] [facility] [place] [address] Phone Care Team Providers Care Cullet Washer Name Role Phone Malachi Beth NP Unavailable [...] puff - Active Flonase 50 mcg/actuation Nasal [place] spray 2 spray by intranasal route every [...] Min [facility] Procedure Neuromuscular Re-education Therapeutic Procedure Therapeutic [...] Docum ent Est Pt Eval 25 Min Assay of benzodiazepines Assay of amphetamine or methamphetamine Assay of barbiturates, not elsewhere spe cified Assay of cocaine or metabolite 15 Assay of methadone Opiate(s), drug and metabolites, each pr ocedure Drug confirmation, each procedure Pain Assessment And Follow Up Plan Docum ent Est Pt Eval 25 Min Pain Assessment And Follow Up Plan Doc ent Est Pt Eval 15 Min Pain Assessment And Follow Up Plan Docum ent Inj Not Lytic-epidur; Cerv/tho 15 Fluoro Guidance - Spine Adverse Events did not occur Patient without preop order for prophyla ctic IV an Epid/SAB Cerv/Thor Fluoroscopic Guidance For Needle Placeme nt - Spine Est Pt Eval 15 Min Pain Assessment And Follow Up Plan Docum ented Est Pt Eval 15 Min Est Pt [...] Pt Eval 25 Min [facility], [address] [facility] [address], [place], [place], [address], [place] tel:[phone] [facility] Postlaminecto my syndrome, not elsewhere classifiedLow back painOther cervical disc degeneration, unsp cervical regionLong term (current) use of opiate analgesicOthe r spondylosis with radiculopathy , lumbar regionObesity , unspecified 7 Ignacia Murillo [address] [facility] [address], [facility] , [place], [address], [place]. tel:[phone] Referring Provider: Miri Amaya, [address] [facility] [address] [place], [address]. tel:[phone] Est Pt Eval 25 Min [facility], [address] [facility] [address], [place], [place], [address], [place] tel:[phone] [facility] Postlaminecto my syndrome, not elsewhere classifiedCer vicalgiaLow back painLong term (current) use of opiate analgesic 7 No Information Referring Provider: Miri Amaya, [address] [place] [address] [address] [place], [address]. tel:[phone] Est Pt Eval 25 Min [facility], [address], [place], [place], [address], [place] tel:[phone] [facility] longterm (current) use of opiate analgesicLow back painCervicalg iaPostlaminec abel syndrome, not elsewhere classified 0 6 No Information Referring Provider: Miri Amaya, [address] [place] [address] [address] [place], [address]. tel:[phone] Est Pt Eval 25 Min [facility], [address], [place], [place], [address], [place] tel:[phone] [facility] exterminator termite (current) use of opiate analgesicCerv icalgiaLow back painPostlamin ectomy syndrome, not elsewhere classified Sep0 6 No Information Referring Provider: Miri Amaya, [address] [place] [address] [address] [place], [address]. tel:[phone] Est Pt Eval 25 Min [facility], [address], [place], [place], [address], [place] tel:[phone] [facility] exterminator termite (current) use of opiate analgesicCerv icalgiaLow back painPostlamin ectomy syndrome, not elsewhere classified 0 6 No Information Referring Provider: Miri Amaya, [address] [place] [address] [address] [place], [address]. tel:[phone] Est Pt Eval 15 Min [facility], [address], [place], [place], [address], [place] tel:[phone] [facility] Other spondylosis with radiculopathy , lumbar regionObesity exterminator termite (current) use of opiate analgesicCarp al tunnel syndrome, right upper limb 0-201 6 Openda Too. [address], [place], [address], [place]. tel:[phone] Miri Vargas.Refe rring Provider: Miri Amaya, [address] [place] [address] [address] [place], [address]. tel:[phone] Est Pt Eval 15 Min [facility], [address], [place], [place], [address], [place] tel:[phone] [facility] Other spondylosis with radiculopathy , lumbar regionObesity longterm (current) use of opiate analgesicCarp al tunnel syndrome, right upper limb 8-201 6 Openda Too. [address], [place], [address], [place]. tel:[phone] Referring Provider: Miri Amaya, [address] [place] [address] [address] [place], [address]. tel:[phone] Est Pt Eval 15 Min [facility], [address], [place], [place], [address], [place] tel:[phone] [facility] Carpal tunnel syndrome, right upper limbLong term (current) use of opiate analgesicObes ityOther spondylosis with radiculopathy , lumbar region 6 Openda Too. [address], [place], [address], [place]. tel:[phone] Referring Provider: Miri Amaya, [address] [place] [address] [address] [place], [address]. tel:[phone] [facility], [address], [place], [place], [address], [place] tel:[phone] [facility] 7390 No Information 5 [facility] [place]. [address], [place], [address], [place]. [phone] Referring Provider: Miri Amaya, [address] [place] [address] [address] [place], [address]. tel:[phone] Est Pt Eval 15 Min [facility], [facility], [address], [place], [place], [address], [place] tel:[phone] [facility] Other spondylosis with radiculopathy , lumbar regionObesity longterm (current) use of opiate analgesic Feb- [facility] Too. [address], [place], [address], [place]. tel:[phone] Referring Provider: Miri Amaya, [address] [place] [address] [address] [place], [address]. tel:[phone] [facility], [address], [place], [address], [place] tel:[phone] [facility] 7390 No Information 5 [facility] [place]. [address], [place], [address], [place]. tel:[phone] Referring Provider: Miri Amaya, [address] [place] [address] [address] [place], [address]. tel:[phone] [facility], [address], [place], [address], [place] tel:[phone] [facility] 7390 No Information 5 [facility] [place]. [address], [place], [address], [place]. tel:[phone] Referring Provider: Miri Amaya, [address] [place] [address] [address] [place], [address]. tel:[phone] Est Pt Eval 25 Min [facility] [address], [place], [place], [address], [place] tel:[phone] [facility] longterm (current) use of opiate analgesicObes ityOther spondylosis with radiculopathy , lumbar region 9-201 5 Da Gallego. [address] [facility], [place], [place], [address], [place]. tel:[phone] Referring Provider: Miri Amaya, [address] [place] [address] [address] [place], [place], [address]. [phone] [facility] [place], [address] [facility], [place], [address], [place] tel:[phone] [facility] [place] No Information Sep-3 0-201 5 Lazaro Zendejas. [address], [place], [place], [address], [place]. tel:[phone] Referring Provider: Aashish Ly, [address], [place], [address]. tel:[phone] [facility], [address], [place], [place], [address], [place] tel:[phone] [facility] Cony No Information Sep-3 0-201 5 Lazaro Zendejas. [address], [place], [place], [address], [place]. tel:[phone] Referring Provider: Miri Amaya, [address] [place] [address] [address] [place], [address]. [phone] Est Pt Eval 25 Min [facility], [address], [place], [place], [address], [place] tel:[phone] [facility] No Information Nov-0 8- 5 Openda Too. [address], [place], [address], [place]. [phone] Referring Provider: Miri Amaya, [address] [place] [address] [address] [place], [address]. tel:[phone] [facility], [facility], [address], [place], [place], [address], [place] tel:[phone] [facility] 7390 No Information Aug-2 3-201 5 Herminia Swapna. [address], [place], [place], [address], [place]. tel:[phone] Referring Provider: Miri Amaya, [address] [place] [address] [address] [place], [address]. tel:[phone] [facility], [facility], [address], [place], [place], [address], [place] tel:[phone] [facility] 7390 No Information 0- 5 Herminia Swapna. [address], [place], [place], [address], [place]. tel:[phone] Referring Provider: Miri Amaya, [address] [place] [address] [address] [place], [address]. tel:[phone] Est Pt Eval 25 Min [facility], [facility], [address], [place], [place], [address], [place] tel:[phone] [facility] No Information Aug-0 9- 5 King AZEEM Zendejas. [address], [facility] , [place], [place], [address], [place]. tel:[phone] Referring Provider: Miri Amaya, [address] [place] [address] [address] [place]astro[place], [address]. tel:[phone] [facility], [address], [place], [place], [address], [place] tel:[phone] [facility] No Information 5 Herminia Swapna. [address], [place], [place], [address], [place]. tel:[phone] Referring Provider: Miri Amaya, [address] [place] [address] [address] [place] Gastroent[place], [place], [address]. tel:[phone] [facility], [address], [place], [place], [address], [place] tel:[phone] [facility] No Information 5 Herminia Swapna. [address], [place], [place], [address], [place]. tel:[phone] Referring Provider: Miri Amaya, [address] [place] [address] [address] [place], [address]. tel:[phone] [facility], [address], [place], [place], [address], [place] tel:[phone] [facility] 7390 No Information 5 [facility] [place]. [address], [place], [address], [place]. tel:[phone] Referring Provider: Miri Amaya, [address] [place] [address] [address] [place], [address]. tel:[phone] Est Pt Eval 25 Min [facility], [address], [place], [place], [address], [place] tel:[phone] [facility] No Information 5 Lazaro Zendejas. [address], [place], [place], [address], [place]. tel:[phone] Referring Provider: Miri Amaya, [address] [place] [address] [address] [place], [place], [address]. tel:[phone] Est Pt Eval 25 Min [facility], [address], [place], [place], [address], [place] tel:[phone] [facility] No Information 5 King AZEEM Zendejas. [address], [facility] , [place], [place], [address], [place]. tel:[phone] Referring Provider: Miri Amaya, [address] [place] [address] [address] [place], [place], [address]. tel:[phone] Est Pt Eval 25 Min [facility], [address], [place], [place], [address], [place] tel:[phone] [facility] No Information 5 King AZEEM Zendejas. [address], [facility] , [place], [place], [address], [place]. tel:[phone] Referring Provider: Miri Amaya, [address] [place] [address] [address] [place], [address]. tel:[phone] Est Pt Eval 15 Min [facility], [address], [place], [place], [address], [place] tel:[phone] [facility] No Information No Information Referring Provider: Miri Amaya, [address] [place] [address] [address] [place], [address]. tel:[phone] [facility], [address], [place], [address], [place] tel:[phone] [facility] No Information [facility]. [address], [place], [address], [place]. Referring Provider: Ozzie Hyman MD, [address] [place] [address] [facility], [place], [address]. tel:[phone] [facility], [address], [place], [place], [address], [place] tel:[phone] [facility] No Information Boogie Horne. [address] [place], N [facility], [place], [address]. tel:[phone] Referring Provider: Miri Amaya, [address] [place] [address] [address] [place], [place], [address]. tel:[phone] Est Pt Eval 15 Min [facility], [facility], [address], [place], [place], [address], [place] tel:[phone] [facility] No Information 5 No Information Referring Provider: Miri Amaya, [address] [place] [address] [address] [place], [address]. tel:[phone] Est Pt Eval 15 Min [facility], [facility], [address], [place], [place], [address], [place] tel:[phone] [facility] No Information Dec-1 1-201 4 No Information Referring Provider: Miri Amaya, [address] [place] [address] [address] [place], [address]. tel:[phone] Est Pt Eval 25 Min [facility], [address], [place], [place], [address], [place] tel:[phone] [facility] No Information 4 Bart Amy. [address], [place], [address], [place]. tel:[phone] Referring Provider: Miri Amaya, [address] [place] [address] [address] [place], [address]. tel:[phone] [facility], [address], [place], [address], [place] tel:[phone] [facility] No Information 4 Gwyn Hoffman. [address] [place], [facility], [place], [address]. tel:[phone] Referring Provider: Dalton Avila, [address] [place] [facility], [place], [address]. tel:[phone] [facility], [address], [place], [place], [address], [place] tel:[phone] [facility] [place] No Information 4 Gwyn Hoffman. [address] [place], [facility], [place], [address]. tel:[phone] Referring Provider: Miri Amaya, [address] [place] [address] [address] [place], [address]. tel:[phone] Est Pt Eval 25 Min [facility], [address], [place], [place], [address], [place] tel:[phone] [facility] No Information 4 Vinnie Berrios. [address] [place], [address], [place]. Referring Provider: Miri Amaya, [address] [place] [address] [address] [place], [address]. tel:[phone] [facility], [address], [place], [address], [place] tel:[phone] [facility] [facility] No Information Nov- 4 Gwyn Hoffman. [address] [place], [facility], [place], [address]. tel:[phone] Referring Provider: Dalton Avila, [address] [place] [facility], [place], [address]. tel:[phone] [facility], [facility], [address], [place], [place], [address], [place] tel:[phone] [facility] No Information 4 Gywn Hoffman. [address] [place], [facility], [place], [address]. tel:[phone] Referring Provider: Miri Amaya, [address] [place] [address] [address] [place], [address]. tel:[phone] Est Pt Eval 25 Min [facility], [facility], [address], [place], [place], [address], [place] tel:[phone] [facility] No Information 4 Vinnie Berrios. [address] [place], [address], [place]. Referring Provider: Miri Amaya, [address] [place] [address] [address] [place], [address]. tel:[phone] Psych[facility], [facility], [address], [place], [place], [address], [place] tel:[phone] [place] [facility] 7390 No Information Lexau Navi. [address] [facility] [address], [place], [place], [address], [place]. tel:[phone] Referring Provider: Miri Amaya, [address] [place] [address] [address] [place], [address]. tel:[phone] Est Pt Eval 25 Min [facility], [facility], [address] [facility], [place], [place], [address], [place] tel:[phone] [facility] No Information No Information Referring Provider: Miri Amaya, [address] [place] [address] [address] [place], [address]. tel:[phone] Est Pt Eval 25 Min [facility], [facility], [address], [place], [place], [address], [place] tel:[phone] [facility] No Information No Information Referring Provider: Miri Amaya, [address] [place] [address] [address] [place], [address]. tel:[phone] Est Pt Eval 15 Min [facility], [facility], [address], [place], [place], [address], [place] tel:[phone] [facility] No Information 4 No Information Referring Provider: Miri Amaya, [address] [place] [address] [address] [place], [address]. tel:[phone] [facility], [address], [place], [place], [address], [place] tel:[phone] [facility] No Information 4 No Information Referring Provider: Miri Amaya, [address] [place] [address] [address] [place], [address]. tel: [phone] Est Pt Eval 25 Min [facility], [facility], [address] [facility] [address], [place], [place], [address], [place] tel:[phone] [facility] No Information Vinnie Nyei. [address] [place], [address], [place]. Referring Provider: Miri Amaya, [address] [place] [address] [address] [place], [address]. tel:[phone] Offic/outpt E&m Estab Mod-hi 2 [facility], [facility], [address], [place], [place], [address], [place] tel:[phone] [facility] No Information 4 Vinnie Nyei. [address] [place], [address], [place]. Referring Provider: Miri Amaya, [address] [place] [address] [address] [place], [address]. tel: [phone] [facility], [address], [place], [place], [address], [place] tel:[phone] [facility] No Information 4 No Information Referring Provider: Miri Amaya, [address] [place] [address] [address] [place], [address]. tel:[phone] Offic/outpt E&m Estab Mod-hi 2 [facility], [facility], [address], [place], [place], [address], [place] tel:[phone] [facility] No Information [address] [facility]. [address] [place], [address], [place]. Referring Provider: Miri Amaya, [address] [place] [address] [address] [place], [address]. tel:[phone] Offic/outpt E&m Estab Mod-hi 2 [facility], [facility], [address], [place], [place], [address], [place] tel:[phone] [facility] No Information 4 [facility]. [address] [place], [address], [place]. Referring Provider: Miri Amaya, [address] [place] [address] [address] [place] og[place]get[place], [place], [address]. tel:[phone] [facility], [address], [place], [place], [address], [place] tel:[phone] [facility] No Information 4 No Information Referring Provider: Miri Amaya, [address] [place] [address] [address] [place], [place], [address]. tel:[phone] [facility], [address], [place], [place], [address], [place] tel:[phone] [facility] No Information 4 Lazaro Zendejas. [address], [place], [place], [address], [place]. tel:[phone] Referring Provider: Miri Amaya, [address] [place] [address] [address] [place], [address]. tel:[phone] Offic/outpt E&m New Mod-hi 45 [facility], [address], [place] Griffith [place], [address], [place] tel:[phone] [facility] No Information 4 Vinnie Berrios. [address] [facility], [place], [address], [place]. Referring Provider: Miri Amaya, [address] [facility] [address] [place], [address]. tel:[phone] Family History Family Member Type Diagnosis Age At Onset N/A Problem (finding) No Significant Family H istory Payers Payer name Insurance type Covered democrat ID Authoriza tion(s) [employer] Medicare PPO 16 [id number] Social History Type Description Quantity Date Captured [...]
--- OUTSIDE RECORDS SUMMARY | 2023-09-26 14:48 | XMS_ITS ---
Author Organization [facility] Address [address] [place] [address] Care Team Providers Care Single Resource Boss Name Role Phone Unavailable Unavailable Unavailable Surgery Details Not on file Complications Check Surgery Details section. Procedure Estimated Blood Loss Check Surgery Details section. Procedure Findings Check Surgery Details section. Procedure Specimens Taken Check Surgery Details section.
--- OUTSIDE RECORDS SUMMARY | 2023-09-26 14:48 | XMS_ITS | Referral Summary ---
Author Organization [facility] Address [address] [place] [address] Care Team Providers Care Deputy Chief Magistrate Name Role Phone Unavailable Primary Care Provider Unavailabl e Source Comments Patient records contain information from all sites at [facility]. For routine questions regarding patient records, call [phone] during business hours, M-F 8:00 AM - 5:00 PM Central Time. Record requests for emergency care only can be directed to [phone] at any time.[facility] Encounters Date Type Department Care Team Description 09/19/2023 Orders Only Division of Pulmonary Medicine in [place], [place] [address] [place] [address] Rivera Gil Bronchitis Chronic (HCC) (Primary Dx); Chronic Obstructive Pulmonary Disease (HCC) from Last 3 Months Social History Tobacco [...] on file Sexual Orientation Not on file Plan of Treatment Upcoming Encounters Date Type Department Care Team (Late st Contact Info) Description 10/08/2023 7:30 AM CDT Diagnostic Division of Pulmonary Medicine in [place], [place] [address] [place] [phone] Fox Alvarez M.D. [address] [place] [address] 10/08/2023 9:30 AM CDT Comprehensive Visit Division of Pulmonary Medicine in [place], [place] [address] [place] [address] Brooke Sanabria M.D. [address] [place] [address] 10/08/2023 11:50 AM CDT Appointment Department of Laboratory Medicine and Pathology, [facility] in [place], [place] [address] [place] [address] Fox Alvarez M.D. [address] [place] [phone] Procedures Procedure Name Priority Date/Time Associated Diagnosis Comments CT ABDOMEN PELVIS WITH IV CONTRAST RAD - Routine (most inpatients and all outpatients) 01/29/2018 1:38 PM CORPORATE ACCOUNTANT from Last 3 Months or Most Recently Relevant to Health Maintenance
--- OUTSIDE RECORDS SUMMARY | 2023-09-26 14:48 | XMS_ITS | Clinical Summary ---
Author Organization [facility] Address [address] [place] [address] Care Team Providers Care International Marketing Manager Name Role Phone Unavailable Primary Care Provider Unavailabl e Source Comments Patient records contain information from all sites at [facility]. For routine questions regarding patient records, call [phone] during business hours, M-F 8:00 AM - 5:00 PM Central Time. Record requests for emergency care only can be directed to [phone] at any time.[facility] Encounters Date Type Department Care Team Description 09/19/2023 Orders Only Division of Pulmonary Medicine in [place], [place] [address] [place] [address] Rivera Gil Bronchitis Chronic (HCC) (Primary Dx); [...] CDT Diagnostic Division of Pulmonary Medicine in [place], [place] [address] [place] [phone] Fox Alvarez M.D. [address] [place] [address] 10/08/2023 9:30 AM CDT Comprehensive Visit Division of Pulmonary Medicine in [place], [place] [address] [place] [address] Brooke Sanabria M.D. [address] [place] [phone] 10/08/2023 11:50 AM CDT Appointment Department of Laboratory Medicine and Pathology, [facility] in [place], [place] [address] [place] [phone] Fox Alvarez M.D. [address] [place] [phone] Health Maintenance Due Date Last Done Comments Hepatitis C Screening 1945 Depression Screening (Annual PHQ-2) 03/11/2023 Fall Risk Screen (Annual) 03/11/2023 COVID-19 Vaccine (2022-2 4 season) 2023 12/25/2022, 10/15/2022, 11/28/2021, Additional history exists Influenza Vaccine (#1) 2023 , 11/15/2021, 01/11/2021, Additional history exists DTaP,Tdap,and Td Vaccines (3 - Td or Tdap) 10/19/2025 10/20/2015, 01/11/2014, 01/21/2013, Additional history exists Pneumococcal vaccine (65+ years) Completed 10/20/2015, 02/10/2014, 01/11/2014, Additional history exists Zoster Vaccines Completed 12/18/2017, 0811/2017, 07/09/2012 Abdominal Aortic Aneurysm (A AA) Screen Discontinued 01/29/2018, 05/03/2013, 02/13/2013 Colonoscopy Discontinued 02/12/2018 Colorectal Cancer Screening Discontinued CT Colonography Discontinued Cologuard Discontinued FIT Discontinued Procedures Procedure Name Priority Date/Time Associated Diagnosis Comments CT ABDOMEN PELVIS WITH IV CONTRAST RAD - Routine (most inpatients and all outpatients) 01/29/2018 1:38 PM ORAL AND MAXILLOFACIAL SURGEON from Last 3 Months or Most Recently Relevant to Health Maintenance
--- OUTSIDE RECORDS SUMMARY | 2023-09-26 14:48 | XMS_ITS | Encounter Summary ---
Author Organization [facility] Address [address] [place] [address] Care Team Providers Care Oracle Dba Name Role Phone Unavailable Primary Care Provider Unavailabl e Encounter Details Date Type Department Care Team (Late st Contact Info) Description 02/06/2018 [facility] [address] [place] [address] Wesley Dugan M.D. [address] [place] [phone] Graves' Disease (Primary Dx) Social History Tobacco Use Types Packs/Day Years Used Date Smoking Tobacco: Never Assessed Sex and Gender Information Value Date Recorded Sex Assigned at Not on file Gender Identity Not on file Sexual Orientation Not on file documented as of this encounter Plan of Treatment Upcoming Encounters Date Type Department Care Team (Late st Contact Info) Description 10/08/2023 7:30 AM CDT Diagnostic Division of Pulmonary Medicine in [place], [place] [address] [place] [phone] Fox Alvarez M.D. [address] [place] [phone] 10/08/2023 9:30 AM CDT Comprehensive Visit Division of Pulmonary Medicine in [place], [place] [address] [place] [address] Brooke Sanabria M.D. [address] [place] [address] 10/08/2023 11:50 AM CDT Appointment Department of Laboratory Medicine and Pathology, [facility], in [place], [place] [address] [place] [phone] Fox Alvarez M.D. [address] [place] [address] documented as of this encounter Visit Diagnoses Diagnosis Graves' Disease- Primary documented in this encounter
--- OUTSIDE RECORDS SUMMARY | 2023-09-26 14:49 | XMS_ITS | Encounter Summary ---
Author Organization [facility] Address [address] [place] [address]. [place] [address] Care Team Providers Care Hose Inspector Name Role Phone Wesley Dugan MD Primary Care Provider Wesley Dugan MD Unavailable [phone] Nela Sheth RN Unavailable Unavailable Ella Matias PA-C Unavailable Santi Heller MD Unavailable [phone] Aashish Leone MD Unavailable Unavail able Tato Mallory MD Unavailable Chirag Taylor MD Primary Care Provider + Miguel Culver PA-C Unavailable Wesley Dugan MD Unavailable [phone] Reason for Visit * Reason Comments Medication Refill Encounter Details Date Type Department Care Team (Late st Contact Info) Description 08/26/2019 Refill [facility] [id number] [place] [address] [place] [id number] [place] [address] Medication Refill Social History Tobacco Use Types Packs/Day Years Used Date Smoking Tobacco: Former Cigarettes 0 1958 - 2016 Smokeless Tobacco: Never Alcohol Use Standard Drinks/Week Comments Not Currently 0 (1 standard drink = 0.6 oz pur e alcohol) PHQ-2 Answer Date Recorded PHQ-2 Score 0 08/17/2019 Sex and Gender Information Value Date Recorded Sex Assigned at Male 03/30/2018 7:28 AM BOARD SETTER Gender Identity Male 03/30/2018 7:28 AM BOARD SETTER Sexual Orientation Straight 02/18/2018 9: 07 AM BOARD SETTER COVID-19 Exposure Response Date Recorded In the last month, have you been in contact with someone who was confirmed or suspected to have Coronavirus / COVID-19? No / Unsure 08/28/2019 8:30 AM CDT documented as of this encounter Miscellaneous Notes * Telephone Encounter - Charlotte Castro RN - 08/26/2019 1:13 PM CDT Medication refilled per [facility] protocol Charlotte Castro RN documented in this encounter Plan of Treatment Not on file documented as of this encounter Visit Diagnoses Diagnosis Hx of coronary artery disease Personal history of other diseases of circulatory system documented in this encounter Additional Health Concerns Assessment Noted Time PHQ-9 Depression Total Score: 8 08/15/19 7:03 AM CDT documented as of this encounter Care Teams Hose Inspector Relationship Specialty [place] [address] [place] [address] PCP - General Family Practice 03/14/21 Chirag Taylor MD [address] [place] [address] PCP - General 03/15/20 03/13/21 [place] [address] [place] [address] Assigned PCP 09/19/14 02/23/22 Ephrata, Nela A, RN Personal Advocate & Liaison (PAL) Family Practice 10/13/19 03/14/20 Ella Matias PA-C [address] [place] [address] Assigned Cancer Care Provider 01/01/20 03/18/21 Santi Heller MD [address] [facility] [address] [place] [address] Assigned Surgical Provider 01/01/2003/01 Aashish Leone MD Assigned Heart and Vascular Provider 01/01/20 05/07/20 [place] [address] [facility] [address] [place] [address] Assigned Musculoskeletal Provider 01/01/20 07/23/20 Miguel Culver PA-C [address] [facility] [place] [address] Assigned Heart and Vascular Provider 05/25/20 04/29/21 [place] [address] [place], [place] [id number] Assigned PCP 05/05/22 10/19/22 documented as of this encounter
--- OUTSIDE RECORDS SUMMARY | 2023-09-26 14:49 | XMS_ITS | Encounter Summary ---
Author Organization [facility] Address [address] [place] [address]. [place] [address] Care Team Providers Care Navy Material Inspector Name Role Phone Wesley Dugan MD Primary Care Provider [phone] Wesley Dugan MD Unavailable [phone] Nela Sheth RN Unavailable Unavailable Ella Matias PA-C Unavailable Santi Heller MD Unavailable Aashish Leone MD Unavailable Unavail able Tato Mallory MD Unavailable [phone] Chirag Taylor MD Primary Care Provider + Miguel Culver PA-C Unavailable [phone] Wesley Dugan MD Unavailable [phone] Reason for Visit * Reason Comments Medication Refill Encounter Details Date Type Department Care Team (Late st Contact Info) Description [facility] [address] [place] [address] [place] Dugan MD [id number] [place] [address] Medication Refill Social History Tobacco Use Types Packs/Day Years Used Date Smoking Tobacco: Former Cigarettes 0 1958 - 2016 Smokeless Tobacco: Never Alcohol Use Standard Drinks/Week Comments Not Currently 0 (1 standard drink = 0.6 oz pur e alcohol) PHQ-2 Answer Date Recorded PHQ-2 Score 2 10/16/2019 Sex and Gender Information Value Date Recorded Sex Assigned at Male 03/30/2018 7:28 AM MAKE UP WORKER Gender Identity Male 03/30/2018 7:28 AM MAKE UP WORKER Sexual Orientation Straight 02/18/2018 9: 07 AM MAKE UP WORKER documented as of this encounter Miscellaneous Notes * Telephone Encounter - Chen Ruiz RN - 12/15/2019 1:04 PM CDT Routing refill request to provider for review/approval because: Drug not on the [facility] refill protocol Chen Ruiz RN [facility] -- Triage Nurse documented in this encounter Plan of Treatment Not on file documented as of this encounter Visit Diagnoses Diagnosis Peripheral polyneuropathy Unspecified hereditary and idiopathic peripheral neuropathy Chronic pain syndrome documented in this encounter Additional Health Concerns Assessment Noted Time PHQ-9 Depression Total Score: 7 10/16/19 20 7:11 AM CDT documented as of this encounter Care Teams Navy Material Inspector Relationship Specialty [place] [address] [place] [address] PCP - General Family Practice 03/14/21 Chirag Taylor MD [address] [place] [address] PCP - General 03/15/20 03/13/21 [place] [address] [place] [address] Assigned PCP 09/19/14 02/23/22 Nela Sheth RN Personal Advocate & Liaison (PAL) Family Practice 10/13/19 03/14/20 Ella Matias PA-C [address] [place] [address] Assigned Cancer Care Provider 01/01/20 03/18/21 Santi Heller MD [address] [facility] [address] [place] [address] Assigned Surgical Provider 01/01/2003/01 Aashish Leone MD Assigned Heart and Vascular Provider 01/01/20 05/07/20 [place] [address] [facility] [address] [place] [address] Assigned Musculoskeletal Provider 01/01/20 07/23/20 Miguel Culver PA-C [address] [place] [address] Assigned Heart and Vascular Provider 05/25/20 04/29/21 [place] [address] [place] [address] Assigned PCP 05/05/22 10/19/22 documented as of this encounter
--- OUTSIDE RECORDS SUMMARY | 2023-09-26 14:49 | XMS_ITS | Encounter Summary ---
Author Organization [facility] Address [address] [place] [address] Care Team Providers Care Feed Mill Tender Name Role Phone Wesley Dugan MD Primary Care Provider [phone] Wesley Dugan MD Unavailable [phone] Wesley Dugan MD Unavailable [phone] Encounter Details Date Type Department Care Team (Late st Contact Info) Description 11/20/2021 [facility] Advice [address] [address] Yael Bardales MA Social History Tobacco Use Types Packs/Day Years Used Date Smoking Tobacco: Former Cigarettes 0 1958 - 2016 Smokeless Tobacco: Never Alcohol Use Standard Drinks/Week Comments Not Currently 0 (1 standard drink = 0.6 oz pur e alcohol) PHQ-2 Answer Date Recorded PHQ-2 Score 2 10/16/2019 Sex and Gender Information Value Date Recorded Sex Assigned at Male 03/30/2018 7:28 AM INTERIM CONTROLLER Gender Identity Male 03/30/2018 7:28 AM INTERIM CONTROLLER Sexual Orientation Straight 02/18/2018 9: 07 AM INTERIM CONTROLLER documented as of this encounter Plan of Treatment Not on file documented as of this encounter Visit Diagnoses Not on filedocumented in this encounter Additional Health Concerns Assessment Noted Time PHQ-9 Depression Total Score: 7 10/16/19 20 7:11 AM CDT documented as of this encounter Care Teams Feed Mill Tender Relationship Specialty [place] [address] [place] [address] PCP - General Family Practice 03/14/21 [place] [address] [place] [address] Assigned PCP 09/19/14 02/23/22 [place] [address] [place] [address] Assigned PCP 05/05/22 10/19/22 documented as of this encounter
--- OUTSIDE RECORDS SUMMARY | 2023-09-26 14:49 | XMS_ITS | Clinical Summary ---
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 Name Role Phone Wesley Dugan MD Primary Care Provider [phone] Allergies Active Allergy Reactions Criticality Noted Date Comments Bupropion 12/30/2017 tinnitus Isosorbide Nitrate 08/19/2013 Headache Spironolactone Other (See Comments) Medium 10/31/2018 gynecomastia Topiramate 12/01/2018 Doses higher than 50 daily not tolerated Venlafaxine 07/13/2019 anxiety Medications Medication Sig Dispensed Refills Start Date End Date Status aspirin 81 MG tabletIndications:C AD (coronary artery disease) Take 1 tablet (81 mg) by mouth daily 30 tablet 3 08/20/2013 Active ORDER FOR DMEIndications:COPD (chronic obstructive pulmonary disease) (H),Hypoxia Equipment being ordered: Home Portable Oxygen Concentrator, Use at 2 Liters/min SpO2 levels: 86% with stairs, 92 % with walking, 95 % at rest Denice 1 each 0 01/11/2014 Active ORDER FOR DMEIndications:COPD (chronic obstructive pulmonary disease) (H) Equipment being ordered: Nasal Cannula 1 Device 11 07/15/2014 Active order for DMEIndications:Slee p-related hypoventilation,[place] lobular emphysema (H),Hypoxia Equipment being ordered: Oxygen concentrator with battery 1 each 06/11/2016 Active order for DMEIndications:Avas cular necrosis of bone of hip, left (H) Equipment being ordered: walk in tub with door 1 each 10/16/2018 Active VITAMIN E PO Take 180 mg by mouth daily Active metoprolol succinate ER (TOPROL XL) 25 MG 24 hr tabletIndications:H TN, goal below 140/90,Hx of coronary artery disease Take 3 tablets (75 mg) by mouth daily 270 tablet 3 02/27/2019 Active rosuvastatin (CRESTOR) 40 MG tabletIndications:H yperlipidemia LDL goal <70 TAKE 1 TABLET EVERY DAY 90 tablet 3 02/27/2019 Active budesonide-formoter ol (SYMBICORT) 160-4.5 MCG/ACT InhalerIndications: Panlobular emphysema (H) Inhale 2 puffs into the lungs 2 times daily 3 Inhaler 3 02/27/2019 Active NARCAN 4 MG/0.1ML nasal sprayIndications:Co ntinuous opioid dependence (H) USE 1 SPRAY IN ONE NOSTRIL, ALTERNATING NOSTRILS ONCE NEEDED FOR OPIOID REVERSAL EVERY 2-3 MINS UNTIL ASSISTANCE ARRIVES 2 each 03/17/2019 Active roflumilast (DALIRESP) 500 MCG TABS tabletIndications:P anlobular emphysema (H) Take 1 tablet (500 mcg) by mouth daily 90 tablet 3 07/09/2019 Active nitroGLYcerin (NITROSTAT) 0.4 MG sublingual tabletIndications:C oronary artery disease involving levelock coronary artery of levelock heart without angina pectoris For chest pain place 1 tablet under the tongue every 5 minutes for 3 doses. If symptoms persist 5 minutes after 1st dose call 911. 25 tablet 11 08/17/2019 Active Vitamin D3 (VITAMIN D3) 25 mcg (1000 units) tabletIndications:V itamin D deficiency Take 1 tablet (25 mcg) by mouth daily 100 tablet 3 08/17/2019 Active losartan (COZAAR) 25 MG tabletIndications:H x of coronary artery disease TAKE 1 TABLET (25 MG) BY MOUTH DAILY 90 tablet 4 08/26/2019 Active melatonin 3 MG tablet Take 3 mg by mouth nightly as needed for sleep Active fluticasone (FLONASE) 50 MCG/ACT nasal sprayIndications:Ch ronic rhinitis USE 2 SPRAYS INTO BOTH NOSTRILS DAILY 48 g 3 09/11/2019 Active tamsulosin (FLOMAX) 0.4 MG capsuleIndications: Benign prostatic hyperplasia with weak urinary stream TAKE 1 CAPSULE EVERY DAY 90 capsule 3 10/16/2019 Active colchicine (COLCRYS) 0.6 MG tabletIndications:P ersonal history of calcium pyrophosphate deposition disease (CPPD) TAKE 1 TABLET TWICE DAILY 180 tablet 1 10/27/2019 Active ipratropium - albuterol 0.5 mg/2.5 mg/3 mL (DUONEB) 0.5-2.5 (3) MG/3ML neb solutionIndications :Panlobular emphysema (H) INHALE THE CONTENTS OF 1 VIAL VIA NEBULIZER EVERY 6 HOURS NEEDED 360 mL 3 12/15/2019 Active SPIRIVA HANDIHALER 18 MCG inhaled capsuleIndications: Panlobular emphysema (H) INHALE THE CONTENTS OF 1 CAPSULE ONE TIME DAILY 90 capsule 01/08/2020 Active oxyCODONE (ROXICODONE) 5 MG tabletIndications:P eripheral polyneuropathy,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 TAKE ONE TABLET BY MOUTH TWICE A DAY NEEDED 60 tablet 01/15/2020 Active methimazole (TAPAZOLE) 5 MG tabletIndications:H yperthyroidism,Hype rthyroidism TAKE 1 TABLET EVERY DAY 90 tablet 1 01/20/2020 Active cyanocobalamin (VITAMIN B-12) 1000 MCG tabletIndications:V itamin B12 deficiency without anemia TAKE 1 TABLET EVERY DAY 90 tablet 2 01/26/2020 Active albuterol (PROAIR HFA/PROVENTIL HFA/VENTOLIN HFA) 108 (90 Base) MCG/ACT inhalerIndications: Panlobular emphysema (H) INHALE 2 PUFFS INTO THE LUNGS EVERY 4 HOURS NEEDED FOR SHORTNESS OF BREATH, DYSPNEA OR WHEEZING 54 g 1 01/26/2020 Active nitroGLYcerin (NITROLINGUAL) 0.4 MG/SPRAY sprayIndications:Hx of coronary artery disease FOR CHEST PAIN SPRAY 1 SPRAY UNDER TONGUE EVERY 5 MINUTES FOR 3 DOSES. IF SYMPTOMS PERSIST 5 MIN AFTER 1ST DOSE CALL 911 4.9 g 1 01/26/2020 Active clotrimazole (MYCELEX) 10 MG lozengeIndications: Stomatitis monilial SLOWLY DISSOLVE ONE MICHELLE IN MOUTH 5 TIMES DAILY FOR 6 DAYS 140 lozenge 3 02/16/2020 Active omeprazole (PRILOSEC) [address] capsuleIndications: Heartburn TAKE 1 CAPSULE EVERY DAY 90 capsule 2 02/23/2020 Active Hospital, Clinic, or Other Facility Administered Medication Ordered Dose Route Frequency Start Date End Date Status lidocaine (XYLOCAINE) 2 % external gelIndications:Dysuria UR ONCE 10/19/2019 Ac tive lidocaine (XYLOCAINE) 2 % external gelIndications:Dysuria UR ONCE 10/19/2019 Ac tive Active Problems Problem Noted Date Diagnosed Date Retrograde ejaculation 10/16/2019 Last Assessment & Plan: Urology investigating Benign prostatic hyperplasia with weak urinary s tream 10/16/2019 Last Assessment & Plan: Urology appt next week Other insomnia 10/16/2019 Last Assessment & Plan: Melatonin discussed Monoclonal gammopathy 08/19/2019 Dysuria 08/17/2019 Last Assessment & Plan: Since Hydroxyzine, continues. BPH likely, nascent obstruction discussed, surgery discussed Weight loss 08/17/2019 Last Assessment & Plan: W/u by oncology, methimazole adjusted downward, weight up Avascular necrosis of right humeral head 020 Last Assessment & Plan: Complains of shoulder pain. Imaged 2 years ago with possible loose body. He has topical and oral analgesics Arthritis of right acromioclavicular joint 07/08 Last Assessment & Plan: Orthopedics steroid injection 2 years ago. He does not recall benefit or lack thereof. Recommended trial of repeat injection Coryza 05/29/2019 Last Assessment & Plan: Cold a few days. Discussed self-isolation. Discussed COVID deterioration. Recommended ready telephone consult for same Stomatitis monilial 02/27/2019 Last Assessment & Plan: Attributed to inhalers. Periodic antifungal Avascular necrosis of bone of hip, left 10/17/19 19 Last Assessment & Plan: He complains about pain. S/p coring procedure, bike every other day. Discussed chronic pain, options. Ortho involved Actinic keratosis 10/16/2018 Last Assessment & Plan: Discussed chapo history, rx Intrinsic eczema 09/04/2018 Heartburn 09/04/2018 Last Assessment & Plan: Controlled, continue Omeprazole. Graves disease 06/30/2018 Last Assessment & Plan: Endocrinology adjusted methimazole Tinnitus, bilateral 05/09/2018 Last Assessment & Plan: Reduced with new hearing aides Iron deficiency 03/28/2018 History of tobacco abuse 08/21/2017 Last Assessment & Plan: Now quit 3 years Peripheral polyneuropathy 08/21/2017 Last Assessment & Plan: Opioid therapy Continuous opioid dependence 05/21/2017 Last Assessment & Plan: Stable use Chronic pain syndrome 04/22/2017 Overview: Patient is followed by Dr Brandon Kelly MD for ongoing prescription of pain medication. All refills should only be approved by this provider, or covering partner. Last Assessment & Plan: Controlled substance agreement filed Primary osteoarthritis of ankle, unspecified lat erality 03/05/2017 Sleep-related hypoventilation 02/03/2016 Overview: C PAP Replacing diagnoses that were inactivated after the 12/09/2020 regulatory import. Primary osteoarthritis of right foot 07/25/2015 Personal history of calcium pyrophosphate deposition disease (CPPD) 07/04/2015 Last Assessment & Plan: Colchicine therapy Synovitis of foot 06/14/2015 Panlobular emphysema 06/13/2015 Last Assessment & Plan: NUR, seems improved subjectively. Carpal tunnel syndrome of right wrist 01/31/2015 Lesion of right ulnar nerve 01/31/2015 REGINALDO (obstructive sleep apnea) 11/23/2014 Last Assessment & Plan: Complex sleep-disordered breathing with central apnea. No CPAP Vitamin B12 deficiency without anemia 08/10/2014 Overview: Diagnosis updated by automated process. Provider to review and confirm. Peripheral vascular disease (H24) 02/19/2014 Overview: Right femoral endarterectomy with pericardial patch angioplasty 2012 Last Assessment & Plan: S/p Angioplasty, symptoms stable Hypoxia 01/19/2014 Last Assessment & Plan: Intermittent O2 at home Seasonal allergic rhinitis 01/08/2014 Last Assessment & Plan: Stop claritin Ischemic cardiomyopathy 08/19/2013 Last Assessment & Plan: Discussed. . Nitroglycerin spray rx sent. Edema 08/19/2013 Coronary artery disease invo lving levelock coronary artery of levelock heart without angina pectoris 08/19/2013 Overview: cardiac cath 08/2017: obtuse marginal is chronically occluded; CABG 1997: ADRIENNE to RCA, sequential ARRIAZA to D1, D2 & distal LAD, SVG to OM Last Assessment & Plan: Asymptomatic. Cardiology in October GERD (gastroesophageal reflux disease) 4 Neck pain 07/12/2013 Cervicalgia 07/03/2013 Onychomycosis 06/09/2013 HTN, goal below 140/90 05/25/2013 Last Assessment & Plan: BP Readings from Last 1 Encounters: 08/17/19 117/71 continue Hyperlipidemia LDL goal <70 02/17/2013 Last Assessment & Plan: Treated, continue Rosuvastatin 40mg. Recurrent major depressive d isorder, in partial remission (H24) 01/28/2013 Last Assessment & Plan: Did not tolerate antidepressants, declines further interventions Abdominal aortic aneurysm (H24) 01/21/2013 Overview: Endovascular repair Hx of coronary artery disease 01/21/2013 Last Assessment & Plan: Chronic non cardiac chest pain. Cardiology last 10/2018. Please refer to that note Resolved Problems Problem Noted Date Diagnosed Date Resolved Date Hyperuricemia 08/17/2019 08/17/2019 Hot flash in male 08/17/2019 10/16/2019 Last Assessment & Plan: With pristiq cessation, weight loss. Broaden data base Special screening for malign ant neoplasm of prostate 08/17/2019 08/17/2019 Last Assessment & Plan: Likely BPH. Urinary hesitancy, decreased stream. 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 Provider to review and confirm. COPD (chronic obstructive pulmonary disease) 4 04/07/2015 Overview: O2 pulmonary medicine Chronic pancreatitis 02/17/2013 017 History of Shingles 01/28/2013 07/19/19 14 History of colonic polyps 01/28/2013 Chronic abdominal pain 01/21/201305/28 Overview: MAPS no longer Hx of cholecystectomy 01/21/20132013 Hx of appendectomy 01/21/2013 4 Tobacco abuse 01/21/2013 08/21/2017 Left Rotator cuff tear with repair 01/21/2013 07/18/2013 History of left carpal tunnel release 01/21/2013 07/18/2013 Immunizations Name Administration Dates Next Due COVID-19 Monovalent 18+ (Moderna) 06/09/2020,06/2020 Influenza (High Dose) 3 olegario nt vaccine 12/01/2018,12/18/2017,12/24/2016,2015,12/21/2014,01/11/2014 Influenza (IIV3) PF 12/09/2012,03/11/2007,2006 Influenza Vaccine 65+ (Fluzone HD) 11/20/2019 Influenza Vaccine IM Ages 6- 35 Months 4 Valent (PF) 12/29/2012 Influenza, Whole Virus 12/25/2010 Influenza, seasonal, injectable, PF 01/04/2012 Pneumo Conj 13-V (2010&after) 10/20/2015 Pneumococcal 23 valent 02/10/2014,01/11/2014,03/2006 Pneumococcal, Unspecified 10/19/2011 TD,PF 7+ (Tenivac) 01/21/2013 TDAP Vaccine (Adacel) 10/20/2015 Zoster recombinant adjuvante d (SHINGRIX) 12/18/2017,10/17/2017 Zoster vaccine, live 07/09/2012 Family History Medical History Relation Comments No Known Problems Brother Asthma Father Dementia Mother Rheumatoid Arthritis Mother Asthma Sister 1 Breast Cancer Sister 1 Lung Cancer Sister 1 No Known Problems Sister 2 Relation Status Comments Brother Alive Daughter 1 Alive Daughter 2 Alive Daughter 3 Alive Daughter 4 Alive Father Maternal Grandfather Maternal Grandmother Mother Alive Other Alive Paternal Grandfather Paternal Grandmother Sister 1 Alive Sister 2 Alive Son Alive Social History Tobacco Use Types Packs/Day Years Used Date Smoking Tobacco: Former Cigarettes 0 1958 - 2016 Smokeless Tobacco: Never Tobacco Cessation:Counseling Given: Yes Alcohol Use Standard Drinks/Week Comments Not Currently 0 (1 standard drink = 0.6 oz pur e alcohol) PHQ-2 Answer Date Recorded PHQ-2 Score 2 10/16/2019 Adolescent Education Answer Date Record ed Getting School Help Needed Not on file 11/30 Sex and Gender Information Value Date Recorded Sex Assigned at Male 03/30/2018 7:28 AM NUCLEAR MONITORING TECHNICIAN Gender Identity Male 03/30/2018 7:28 AM NUCLEAR MONITORING TECHNICIAN Sexual Orientation Straight 02/18/2018 9: 07 AM NUCLEAR MONITORING TECHNICIAN Last Filed Vital Signs Vital Sign Reading Time Taken Comments Blood Pressure 110/60 10/19/2019 10:35 AM CDT Pulse 72 10/16/2019 8:47 AM CDT Temperature 37 ??C (98.6 ??F) 10/16/2019 8:47 AM CDT Respiratory Rate 16 10/16/2019 8:47 AM CDT Oxygen Saturation 96% 10/16/2019 8:47 AM CDT Inhaled Oxygen Concentration - - Weight 84.4 kg (186 lb) 10/19/2019 10:35 AM CDT Height 185.4 cm (6' 1) 10/19/2019 10:35 AM CDT Body Mass Index 24.54 10/19/2019 10:35 AM CDT Plan of Treatment Health Maintenance Due Date Last Done Comments HEPATITIS A IMMUNIZATION (1 of 2 - Risk 2-dose series) 1964 RSV VACCINE ( & 60+) (1 - 1-dose 60+ series) 2006 ANNUAL REVIEW OF HM ORDERS 08/16/2020 08/17/2019, CONTROLLED SUBSTANCE AGREEMENT FOR CHRONIC PAIN MANAGEMENT 08/16/2020 08/17/2019 MEDICARE ANNUAL WELLNESS VISIT 08/16/2020 08/17/2019, 09/15/2013 URINE DRUG SCREEN 08/16/2020 08/17/2019, , 06/14/2017, Additional history exists CMP 09/06/2020 09/07/2019, 10/2019, 09/04/2018, Additional history exists BRITTNEY ASSESSMENT 10/15/2020 10/16/2019, 10/2019, 07/09/2019, Additional history exists PHQ-9 10/15/2020 10/16/2019, 10/2019, 07/09/2019, Additional history exists FALL RISK ASSESSMENT 11/24/2020 11/25/2019, 10/16/2019, 09/25/2018, Additional history exists COVID-19 Vaccine ( season) 2023 12/25/2022, 10/15/2022, 11/28/2021, Additional history exists BMP 07/25/2023 01/24/2023, 10/09, 09/07/2019, Additional history exists LIPID 11/01/2023 10/31/2018, 08/10, 10/02/2016, Additional history exists INFLUENZA VACCINE (#1) 2023 3, 11/15/2021, 01/11/2021, Additional history exists URIC ACID 02/01/2024 01/31/2023, 06/0 10/2019, 02/22/2017, Additional history exists LUNG CANCER SCREENING 02/07/2024 02/06/2023 , 09/10/2019, 11/03/2014 ADVANCE CARE PLANNING 11/24/2024 11/25/2019 , 11/22/2015, 11/23/2014, Additional history exists DTAP/TDAP/TD IMMUNIZATION (3 - Td or Tdap) 10/19/2025 10/20/2015, 01/11/2014, 01/21/2013, Additional history exists GLUCOSE 01/24/2026 01/24/2023, 10/09, 09/07/2019, Additional history exists HEPATITIS C SCREENING Completed 07/25/2015 Pneumococcal Vaccine: 65+ Years Completed 10/20/2015, 02/10/2014, 01/11/2014, Additional history exists DEPRESSION ACTION PLAN Completed 7, 09/28/2016, 10/20/2015, Additional history exists ZOSTER IMMUNIZATION Completed 12/18/2017, 10/17/2017, 07/09/2012 SPIROMETRY Completed 12/20/2017, 11/09, 07/15/2015, Additional history exists COLONOSCOPY Discontinued 02/12/2018, 01/10, 12/24/2007, Additional history exists COLORECTAL CANCER SCREENING Discontinued COPD ACTION PLAN Completed 05/08/2018, , 02/22/2017 CT COLONOGRAPHY Discontinued FIT Discontinued FLEX SIG Discontinued HPV IMMUNIZATION Aged Out No longer e ligible based on patient's age to complete this topic IPV IMMUNIZATION Aged Out No longer e ligible based on patient's age to complete this topic MENINGITIS IMMUNIZATION Aged Out No l onger eligible based on patient's age to complete this topic RSV MONOCLONAL ANTIBODY Aged Out No l onger eligible based on patient's age to complete this topic sDNA (Cologuard) Discontinued Medical Devices Implanted Type Area Pig 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 Device Identifier Shelf Expiration Date Model / Serial / Lot Mesh Ventralex Hernia 2.5 Vidal Med W/Strap [id number] Implanted:Qty: 1 on 04/16/2013 by Hans Schultz MD at [facility] N/A: Umbilical 01/02/2015 [id number] / / [id number] Procedures Procedure Name Priority Date/Time Associated Diagnosis Comments CT CHEST/ABDOMEN/PELVIS W CONTRAST Routine 02/06/2023 10:43 PM NUCLEAR MONITORING TECHNICIAN URIC ACID STAT 01/31/2023 8:25 AM NUCLEAR MONITORING TECHNICIAN Hematuria, unspecified BASIC METABOLIC PANEL Routine 01/24/2023 5:45 AM NUCLEAR MONITORING TECHNICIAN Aftercare following joint replacement surgery COMPREHENSIVE METABOLIC PANEL Routine 09/07/2019 12:48 PM CDT Monoclonal gammopathy Weight loss Fatigue, unspecified type Tarry stools COMPREHEN DRUG ANALYSIS UR Routine 08/17/2019 9:49 AM CDT Chronic pain syndrome LIPID PROFILE STAT 10/31/2018 7:23 AM CDT HTN, goal below 140/90 Hx of coronary artery disease COLONOSCOPY Routine 02/12/2018 9:47 AM NUCLEAR MONITORING TECHNICIAN SPIROMETRY - HIM SCAN Routine 12/20/2017 HEPATITIS C ANTIBODY Routine 07/25/2015 9:30 AM CDT Need for hepatitis C screening test from Last 3 Months or Most Recently Relevant to Health Maintenance Results * Uric acid (01/31/2023 8:25 AM NUCLEAR MONITORING TECHNICIAN) Uric Acid 4.0 3.4 - 7.0 mg/dL 01/31/2023 11:18 AM NUCLEAR MONITORING TECHNICIAN [facility] Blood BLOOD SPECIMEN / Unknown Client Draw / Unknown 01/31/2023 8:25 AM NUCLEAR MONITORING TECHNICIAN 01/31/2023 10:46 AM NUCLEAR MONITORING TECHNICIAN Jazmin Alvarado MD LAB - BLOOD ORDERABL ES [facility] [address] [facility], [address] [id number], [facility] [phone] * Basic metabolic panel (01/24/2023 5:45 AM NUCLEAR MONITORING TECHNICIAN) [facility] Sodium 138 135 - 145 mmol/L 01/24/2023 10:21 AM NUCLEAR MONITORING TECHNICIAN [facility] Comment:Reference intervals for this test were updated on 12/04/2022 to more accurately reflect our healthy population. There may be differences in the flagging of prior results with similar values performed with this method. Interpretation of those prior results can be made in the context of the updated reference intervals. Potassium 4.1 3.4 - 5.3 mmol/L 01/24/2023 10:21 AM NUCLEAR MONITORING TECHNICIAN [facility] Chloride 104 98 - 107 mmol/L 01/24/2023 10:21 AM NUCLEAR MONITORING TECHNICIAN [facility] Carbon Dioxide (CO2) 24 22 - 29 mmol/L 01/24/2023 10:21 AM NUCLEAR MONITORING TECHNICIAN [facility] Anion Gap 10 7 - 15 mmol/L 01/24/2023 10:21 AM NUCLEAR MONITORING TECHNICIAN [facility] Urea Nitrogen 15.2 8.0 - 23.0 mg/dL 01/24/2023 10:21 AM NUCLEAR MONITORING TECHNICIAN [facility] Creatinine 0.87 0.67 - 1.17 mg/dL 01/24/2023 10:21 AM NUCLEAR MONITORING TECHNICIAN [facility] GFR Estimate 89 >60 mL/min/1. 73m2 01/24/2023 10:21 AM NUCLEAR MONITORING TECHNICIAN [facility] Calcium 9.4 8.8 - 10.2 mg/dL 01/24/2023 10:21 AM NUCLEAR MONITORING TECHNICIAN [facility] Glucose 88 70 - 99 mg/dL 01/24/2023 10:21 AM NUCLEAR MONITORING TECHNICIAN [facility] Blood STRUCTURE OF LEFT UPPER LIMB / Unknown Venipuncture / Unknown 01/24/2023 5:45 AM NUCLEAR MONITORING TECHNICIAN 01/24/2023 8:02 AM NUCLEAR MONITORING TECHNICIAN Jazmin Alvarado MD LAB - BLOOD ORDERABL ES [facility] [place] [facility] [address] [facility] [address], [address] [place] [address], [facility] [phone] * (ABNORMAL) Comprehensive metabolic panel (09/07/2019 12:48 PM CDT) Sodium 139 133 - 144 mmol/L 09/07/2019 1:20 PM CDT [facility] Potassium 3.6 3.4 - 5.3 mmol/L 09/07/2019 1:20 PM T [facility] Chloride 107 94 - 109 mmol/L 09/07/2019 1:20 PM [facility] Carbon Dioxide 26 20 - 32 mmol/L 09/07/2019 1:28 PM [facility] Anion Gap 6 3 - 14 mmol/L 09/07/2019 1:28 PM [facility] Glucose 106(H) 70 - 99 mg/dL 09/07/2019 1:28 PM T [facility] Urea Nitrogen 12 7 - 30 mg/dL 09/07/2019 1:28 PM [facility] Creatinine 0.79 0.66 - 1.25 mg/dL 09/07/2019 1:28 PM [facility] GFR Estimate 89 >60 mL/min/{1. 73_m2} 09/07/2019 1:28 PM [facility] Comment: Non GFR Calc Starting 02/25/2018, serum creatinine based estimated GFR (eGFR) will be calculated using the Chronic Kidney Disease Epidemiology Collaboration (CKD-EPI) equation. GFR Estimate If Black >90 >60 mL/min/{1. 73_m2} 09/07/2019 1:28 PM [facility] Comment: GFR Calc Starting 02/25/2018, serum creatinine based estimated GFR (eGFR) will be calculated using the Chronic Kidney Disease Epidemiology Collaboration (CKD-EPI) equation. Calcium 9.0 8.5 - 10.1 mg/dL 09/07/2019 1:28 PM [facility] Bilirubin Total 0.8 0.2 - 1.3 mg/dL 09/07/2019 1:30 PM CDT [facility] Albumin 3.7 3.4 - 5.0 g/dL 09/07/2019 1:30 PM CDT [facility] Protein Total 7.2 6.8 - 8.8 g/dL 09/07/2019 1:30 PM CDT [facility] Alkaline Phosphatase 101 40 - 150 U/L 09/07/2019 1:30 PM CDT [facility] ALT 25 0 - 70 U/L 09/07/2019 1:30 PM CDT [facility] AST 19 0 - 45 U/L 09/07/2019 1:30 PM CDT [facility] Blood specimen (specimen) 09/07/2019 12:48 PM CDT 09/07/2019 12:54 PM CDT Migue Browne MD LAB - BLOOD ORDERA BLES Performing Organization Address City/State/[facility] Co de Phone Number [facility] [address] [phone] * Drug Screen Comprehensive, Urine w/o Reported Meds (Pain Care Package) (08/17/2019 9:49 AM CDT) Pathologist [facility] Drug Analysis UR FINAL 08/20/2019 4:37 PM CDT [facility] Comment: (Note) COMPREHENSIVE DRUG ANALYSIS,UR Test ? Result ? Flag ? Units ? Drug Present Oxycodone ?68 ?ng/mg creat Oxymorphone ?300 ? ng/mg creat Noroxycodone ? 444 ? ng/mg creat Noroxymorphone ? 236 ? ng/mg creat ??Sources of oxycodone are scheduled prescription medications. ??Oxymorphone, noroxycodone, and noroxymorphone are expected ??metabolites of oxycodone. Oxymorphone is also available as a ??scheduled prescription medication. Topiramate ? PRESENT ? Metoprolol ? PRESENT ? Test ?Result ?Flag ?? Units ?Ref Range ? Creatinine ?179 ?mg/dL ?>=20 ? For clinical consultation, please call . Analysis performed by [facility], [employer] [place] [address] Urine specimen (specimen) 08/17/2019 9:49 AM CDT 08/17/2019 9:50 AM CDT Wesley Dugan MD LAB - URINE ORDERABL ES Performing Organization Address City/State/[facility] Co de Phone Number [facility] [phone] [place] [phone] * (ABNORMAL) Lipid Profile (10/31/2018 7:23 AM CDT) Cholesterol 136 <200 mg/dL 10/31/2018 7:55 AM CDT [facility] Triglycerides 113 <150 mg/dL 10/31/2018 7:55 AM CDT [facility] Comment:Fasting specimen HDL Cholesterol 36(L) >39 mg/dL 9 7:58 AM CDT [facility] LDL Cholesterol Calculated 77 <100 mg/dL 10/31/2018 7:58 AM CDT [facility] Comment:Desirable: <100 mg/d l Non HDL Cholesterol 100 <130 mg/dL 10/31/2018 7:58 AM CDT [facility] Blood specimen (specimen) 10/31/2018 7:23 AM CDT 10/31/2018 7:29 AM CDT Miguel Culver PA-C LAB - BLOOD ORDERABL ES [facility] [address] [place] [address], [facility] [phone] [facility] [address] [place] [address], [facility] [phone] * COLONOSCOPY (02/12/2018 9:47 AM NUCLEAR MONITORING TECHNICIAN) COLONOSCOPY [facility] Patient Name: Butch Nieves ?Procedure Date: 02/12/2018 9:47 AM ? Date of : 1945 ?Admit Type: Outpatient Age: 72 ? Gender: Male Attending MD: Joe Dent MD ?? Total Sedation Time: 32_minutes continuous bedside 1:1 Instrument Name: 214 - Pediatric Colonoscope Procedure: ?Colonoscopy Indications: ?High risk colon cancer surveillance: Personal ?history of colonic polyps Providers: ?Joe Dent MD (Doctor) Referring MD: ? Medicines: ?Midazolam 2 mg IV, Fentanyl 100 micrograms IV Complications: ?No immediate complications. Procedure: ?Pre-Anesthesia Assessment: ?- Prior to the procedure, a History and Physical ?was performed, and patient medications and ?allergies were reviewed. The patient is competent. ?The risks and benefits of the procedure and the ?sedation options and risks were discussed with the ?patient. All questions were answered and informed ?consent was obtained. Patient identification and ?proposed procedure were verified by the physician ?in the procedure room. Mental Status Examination: ?alert and oriented. Airway Examination: normal ?oropharyngeal airway and neck mobility. Respiratory ?Examination: clear to auscultation. CV Examination: ?normal. Prophylactic Antibiotics: The patient does ?not require prophylactic antibiotics. Prior ?Anticoagulants: The patient has taken aspirin, last ?dose was 4 days prior to procedure. ASA Grade ?Assessment: II - A patient with mild systemic ?disease. After reviewing the risks and benefits, ?the patient was deemed in satisfactory condition to ?undergo the procedure. The anesthesia plan was to ?use moderate sedation / analgesia (conscious ?sedation). Immediately prior to administration of ?medications, the patient was re-assessed for ?adequacy to receive sedatives. The heart rate, ?respiratory rate, oxygen saturations, blood ?pressure, adequacy of pulmonary ventilation, and ?response to care were monitored throughout the ?procedure. The physical status of the patient was ?re-assessed after the procedure. ?After obtaining informed consent, the colonoscope ?was passed under direct vision. Throughout the ?procedure, the patient's blood pressure, pulse, and ?oxygen saturations were monitored continuously. The ?Olympus Pediatric Colonoscope, Model # [id number]-H190DL, ?Endora # 214, SN # [id number] was introduced through ?the anus and advanced to the cecum, identified by ?appendiceal orifice and ileocecal valve. The ?colonoscopy was performed without difficulty. The ?patient tolerated the procedure well. The quality ?of the bowel preparation was good. ? Findings: ? The perianal and digital rectal examinations were normal. ? Four sessile polyps were found in the hepatic flexure, ascending colon ? and distal ascending colon. The polyps were 4 to 5 mm in size. These ? polyps were removed with a cold snare. Resection and retrieval were ? complete. Verification of patient identification for the specimen was ? done. Estimated blood loss was minimal. ? The exam was otherwise without abnormality on direct and retroflexion ? views. ? Impression: ? - Four 4 to 5 mm polyps at the hepatic flexure, in ?the ascending colon and in the distal ascending ?colon, removed with a cold snare. Resected and ?retrieved. ?- The examination was otherwise normal on direct ?and retroflexion views. Recommendation: ? - Await pathology results. ?- Repeat colonoscopy date to be determined after ?pending pathology results are reviewed for ?surveillance based on pathology results. ? Procedure Code(s): ? --- Professional --- ? 86378, Colonoscopy, flexible; with removal of tumor(s), polyp(s), or ? other lesion(s) by snare technique Diagnosis Code(s): ? --- Professional --- ? D12.3, Benign neoplasm of transverse colon (hepatic flexure or splenic ? flexure) ? D12.2, Benign neoplasm of ascending colon CPT copyright 2017 [employer]. All rights reserved. The codes documented in this report are preliminary and upon public bath attendant review may be revised to meet current compliance requirements. Electronically signed by Joe Dent MD __ Joe Dent MD 02/12/2018 10:36:09 AM I was physically present for the entire viewing portion of the exam. Joe Dent MD Number of Addenda: 0 Note Initiated On: 02/12/2018 9:47 AM MRN: ?[id number] Procedure Date: ? 02/12/2018 9:47:22 AM Scope Withdrawal Time: 0 hours 6 minutes 17 seconds Total Procedure Duration: 0 hours 14 minutes 28 seconds Estimated Blood Loss: ? Scope In: 10:18:46 AM Scope Out: 10:33:14 AM RADIOLOGY RESULTS 02/12/2018 9:47 AM NUCLEAR MONITORING TECHNICIAN Joe Dent MD PROCEDURES RADIOLOGY RESULTS * Spirometry - HIM Scan (12/20/2017) Narrative Arin Berkowitz - 12/20/2017 [facility]-Progress note Provider Outside PFT ORDERABLES * Hepatitis C antibody (07/25/2015 9:30 AM CDT) Hepatitis C Antibody Nonreactive Assay performance characteristics have not been established for newborns, infants, and children NR [facility] Blood specimen (specimen) 07/25/2015 9:30 AM CDT 07/25/2015 9:31 AM CDT Wesley Dugan MD LAB - BLOOD ORDERABL ES [facility] [address] [place] [address] from Last 3 Months or Most Recently Relevant to Health Maintenance Advance Directives For more information, please contact: [phone] Documents on File Type Date Recorded Patient Open Soaper Tender Expl anation Advance Directives and Living Will 11/15/2017 2:53 PM Health Care Directiv e 11/12/17 * Full Code (Latest Code Status on File) Date Activated Date Inactivated Comments 03/06/2015 9:26 AM 04/01/2018 1:20 PM * Full Code Date Activated Date Inactivated Comments 03/05/2015 6:19 PM 03/06/2015 9:26 AM Care Teams Paper Mill Superintendent Relationship Specialty [place] [address] [place] [address] PCP - General Family Practice 03/14/21
--- OUTSIDE RECORDS SUMMARY | 2023-09-26 14:49 | XMS_ITS | Referral Summary ---
Author Organization [facility] Address [address] [place] [address] Care Team Providers Care Lamp Shade Sewer Name Role Phone Wesley Dugan MD Primary Care Provider [phone] Allergies Active Allergy Reactions Criticality Noted Date [...] MG sublingual tabletIndications:C oronary artery disease involving [place] coronary artery of [place] heart without angina pectoris For chest pain [...] Active oxyCODONE (ROXICODONE) 5 MG tabletIndications:P eripheral polyneuropathy,Journeyman Wireman lida pain syndrome TAKE ONE TABLET BY [...] Edema 08/19/2013 Coronary artery disease invo lving [place] coronary artery of [place] heart without angina pectoris 08/19/2013 Overview: cardiac [...] Senior Living 03/09/2015 08/26/2023 Overview: Status: Closed Fruit And Vegetable Parer: Laurence Steele RN [phone] See Letters for [facility] Care Plan Date: [...] d (SHINGRIX) 12/18/2017,10/17/2017 Zoster vaccine, live 07/09/2012 Social History Tobacco Use Types Packs/Day Years [...] Sex Assigned at Male 03/30/2018 7:28 AM TELEVISION MECHANIC Gender Identity Male 03/30/2018 7:28 AM TELEVISION MECHANIC Sexual Orientation Straight 02/18/2018 9: 07 AM TELEVISION MECHANIC Last Filed Vital Signs Vital Sign Reading [...] 10/19/2019 10:35 AM CDT Plan of Treatment Not on file Medical Devices Implanted Type Area Stained Glass Glazier Helper Device Identifier Shelf Expiration Date Model / Serial / Lot Mesh Ventralex Hernia 2.5 [employer] Med W/Strap [id number] Implanted:Qty: 1 on 04/16/2013 by Hans Schultz MD at [facility] N/A: Umbilical 01/02/2015 [id number] / / [id number] Procedures Procedure Name Priority Date/Time Associated Diagnosis Comments CT CHEST/ABDOMEN/PELVIS W CONTRAST Routine 02/06/2023 10:43 PM TELEVISION MECHANIC URIC ACID STAT 01/31/2023 8:25 AM TELEVISION MECHANIC Hematuria, unspecified BASIC METABOLIC PANEL Routine 01/24/2023 5:45 AM TELEVISION MECHANIC Aftercare following joint replacement surgery COMPREHENSIVE METABOLIC PANEL Routine 09/07/2019 12:48 PM CDT Monoclonal gammopathy Weight loss Fatigue, unspecified type Tarry stools COMPREHEN DRUG ANALYSIS UR Routine 08/17/2019 9:49 AM CDT Chronic pain syndrome LIPID PROFILE STAT 10/31/2018 7:23 AM CDT HTN, goal below 140/90 Hx of coronary artery disease COLONOSCOPY Routine 02/12/2018 9:47 AM TELEVISION MECHANIC SPIROMETRY - HIM SCAN Routine 12/20/2017 HEPATITIS C ANTIBODY Routine 07/25/2015 9:30 AM CDT Need for hepatitis C screening test from Last 3 Months or Most Recently Relevant to Health Maintenance Results * Uric acid (01/31/2023 8:25 AM TELEVISION MECHANIC) Uric Acid 4.0 3.4 - 7.0 mg/dL 01/31/2023 11:18 AM TELEVISION MECHANIC [facility] Blood BLOOD SPECIMEN / Unknown Client Draw / Unknown 01/31/2023 8:25 AM TELEVISION MECHANIC 01/31/2023 10:46 AM TELEVISION MECHANIC Jazmin Alvarado MD LAB - BLOOD ORDERABL ES [facility] Core Lab [address] [facility], Room [address] [place] [phone], [facility] [phone] * Basic metabolic panel (01/24/2023 5:45 AM TELEVISION MECHANIC) Sodium 138 135 - 145 mmol/L 01/24/2023 10:21 AM TELEVISION MECHANIC [facility] Comment:Reference intervals for this test were updated on 12/04/2022 to more accurately reflect our healthy population. There may be differences in the flagging of prior results with similar values performed with this method. Interpretation of those prior results can be made in the context of the updated reference intervals. Potassium 4.1 3.4 - 5.3 mmol/L 01/24/2023 10:21 AM TELEVISION MECHANIC [facility] Chloride 104 98 - 107 mmol/L 01/24/2023 10:21 AM TELEVISION MECHANIC [facility] Carbon Dioxide (CO2) 24 22 - 29 mmol/L 01/24/2023 10:21 AM TELEVISION MECHANIC [facility] Anion Gap 10 7 - 15 mmol/L 01/24/2023 10:21 AM TELEVISION MECHANIC [facility] Urea Nitrogen 15.2 8.0 - 23.0 mg/dL 01/24/2023 10:21 AM TELEVISION MECHANIC [facility] Creatinine 0.87 0.67 - 1.17 mg/dL 01/24/2023 10:21 AM TELEVISION MECHANIC [facility] GFR Estimate 89 >60 mL/min/1. 73m2 01/24/2023 10:21 AM TELEVISION MECHANIC [facility] Calcium 9.4 8.8 - 10.2 mg/dL 01/24/2023 10:21 AM TELEVISION MECHANIC [facility] Glucose 88 70 - 99 mg/dL 01/24/2023 10:21 AM TELEVISION MECHANIC [facility] Blood STRUCTURE OF LEFT UPPER LIMB / Unknown Venipuncture / Unknown 01/24/2023 5:45 AM TELEVISION MECHANIC 01/24/2023 8:02 AM TELEVISION MECHANIC Jazmin Alvarado MD LAB - BLOOD ORDERABL ES [facility] [place] Core Lab [address] [facility], [address] [place] [address], [facility] [phone] * (ABNORMAL) Comprehensive metabolic panel (09/07/2019 12:48 PM CDT) Sodium 139 133 - 144 mmol/L 09/07/2019 1:20 PM [facility] Potassium 3.6 3.4 - 5.3 mmol/L 09/07/2019 1:20 PM [facility] Chloride 107 94 - 109 mmol/L 09/07/2019 1:20 PM [facility] Carbon Dioxide 26 20 - 32 mmol/L 09/07/2019 1:28 PM [facility] Anion Gap 6 3 - 14 mmol/L 09/07/2019 1:28 PM [facility] Glucose 106(H) 70 - 99 mg/dL 09/07/2019 1:28 PM [facility] Urea Nitrogen 12 7 - 30 mg/dL 09/07/2019 1:28 PM [facility] Creatinine 0.79 0.66 - 1.25 mg/dL 09/07/2019 1:28 PM [facility] GFR Estimate 89 >60 mL/min/{1. 73_m2} 09/07/2019 1:28 PM [facility] Comment: Non GFR Calc Starting 02/25/2018, serum creatinine based estimated GFR (eGFR) will be calculated using the Chronic Kidney Disease Epidemiology Collaboration (CKD-EPI) equation. GFR Estimate If Black >90 >60 mL/min/{1. 73_m2} 09/07/2019 1:28 PM CDT [facility] Comment: GFR Calc Starting 02/25/2018, serum creatinine based estimated GFR (eGFR) will be calculated using the Chronic Kidney Disease Epidemiology Collaboration (CKD-EPI) equation. Calcium 9.0 8.5 - 10.1 mg/dL 09/07/2019 1:28 PM CDT [facility] Bilirubin Total 0.8 0.2 - 1.3 mg/dL 09/07/2019 1:30 PM CDT [facility] Albumin 3.7 3.4 - 5.0 g/dL 09/07/2019 1:30 PM CDT [facility] Protein Total 7.2 6.8 - 8.8 g/dL 09/07/2019 1:30 PM CDT [facility] Alkaline Phosphatase 101 40 - 150 U/L 09/07/2019 1:30 PM CDT [facility] ALT 25 0 - 70 U/L 09/07/2019 1:30 PM CDT [facility] AST 19 0 - 45 U/L 09/07/2019 1:30 PM CDT [facility] Blood specimen (specimen) 09/07/2019 12:48 PM CDT 09/07/2019 12:54 PM CDT Migue Browne MD LAB - BLOOD ORDERA BLES [facility] [address] [place] [address], [facility] [phone] * Drug Screen Comprehensive, Urine w/o Reported Meds (Pain Care Package) (08/17/2019 9:49 AM CDT) Comprehen Drug Analysis UR FINAL 08/20/2019 4:37 PM CDT [facility] Comment: (Note) COMPREHENSIVE DRUG ANALYSIS,UR Test ? [...] consultation, please call . Analysis performed by [employer] [place] [address] Urine specimen (specimen) 08/17/2019 9:49 AM CDT 08/17/2019 9:50 AM CDT Wesley Dugan MD LAB - URINE ORDERABL ES Performing Organization Address [facility] Co de Phone Number [facility] [id number] [place] [address] * (ABNORMAL) Lipid Profile (10/31/2018 7:23 AM CDT) Cholesterol 136 <200 mg/dL 10/31/2018 7:[address] [facility] Triglycerides 113 <150 mg/dL 10/31/2018 7:[address] [facility] Comment:Fasting specimen HDL Cholesterol 36(L) >39 mg/dL 9 7:58 AM CDT [facility] LDL Cholesterol Calculated 77 <100 mg/dL 10/31/2018 7:58 AM CDT [facility] Comment:Desirable: <100 mg/d l Non HDL Cholesterol 100 <130 mg/dL 10/31/2018 7:58 AM CDT [facility] Blood specimen (specimen) 10/31/2018 7:23 AM CDT 10/31/2018 7:29 AM CDT Miguel Culver PA-C LAB - BLOOD ORDERABL ES [facility] [address] [place] [address], [facility] [phone] [facility] [address] [place] [address], [facility] [phone] * COLONOSCOPY (02/12/2018 9:47 AM TELEVISION MECHANIC) COLONOSCOPY [facility] Patient Name: Butch Nieves ?Procedure Date: 02/12/2018 [...] # [id number], ?Endora # 214, SN # [id number] was introduced through ?the anus and advanced [...] Procedure Code(s): ? --- Professional --- ? 53325, Colonoscopy, flexible; with removal of tumor(s), polyp(s), or ? other lesion(s) by snare technique Diagnosis Code(s): ? --- Professional --- ? D12.3, Benign neoplasm of transverse colon (hepatic flexure or splenic ? flexure) ? D12.2, Benign neoplasm of ascending colon CPT copyright 2017 [employer]. All rights reserved. The codes documented in this report are preliminary and upon sports management intern review may be revised to meet current compliance requirements. Electronically signed by Joe Dent MD __ Joe Dent MD 02/12/2018 10:36:09 AM I was physically present for the entire viewing portion of the exam. Joe Dent MD Number of Addenda: 0 Note Initiated On: 02/12/2018 9:47 AM MRN: ?[id number] Procedure Date: ? 02/12/2018 9:47:22 AM Scope Withdrawal Time: 0 hours 6 minutes 17 seconds Total Procedure Duration: 0 hours 14 minutes 28 seconds Estimated Blood Loss: ? Scope In: 10:18:46 AM Scope Out: 10:33:14 AM RADIOLOGY RESULTS 02/12/2018 9:47 AM TELEVISION MECHANIC Joe Dent MD PROCEDURES RADIOLOGY RESULTS * Spirometry - HIM Scan (12/20/2017) Narrative Arin Berkowitz - 12/20/2017 [facility]-Progress note Provider Outside PFT ORDERABLES * Hepatitis C antibody (07/25/2015 9:30 AM CDT) Hepatitis C Antibody Nonreactive Assay performance characteristics have not been established for newborns, infants, and children NR [facility] Blood specimen (specimen) 07/25/2015 9:30 AM CDT 07/25/2015 9:31 AM CDT Wesley Dugan MD LAB - BLOOD ORDERABL ES [facility] [address] [place] [address] from Last 3 Months or Most Recently Relevant to Health Maintenance Advance Directives For more information, please contact: [phone] Documents on File Type Date Recorded Patient Device Sales Consultant Expl anation Advance Directives and Living Will 11/15/2017 2:53 PM Health Care Directiv e 11/12/17 * Full Code (Latest Code Status on File) Date Activated Date Inactivated Comments 03/06/2015 9:26 AM 04/01/2018 1:20 PM * Full Code Date Activated Date Inactivated Comments 03/05/2015 6:19 PM 03/06/2015 9:26 AM Care Teams Lamp Shade Sewer Relationship Specialty [place] [address] [place] [address] PCP - General Family Practice 03/14/21
--- OUTSIDE RECORDS SUMMARY | 2023-09-26 14:49 | XMS_ITS | Encounter Summary ---
Author Organization [facility] Address [address] [place] [address]. [place] [address] Care Team Providers Care Business Analyst Consultant Name Role Phone Wesley Dugan MD Primary Care Provider [phone] Wesley Dugan MD Unavailable [phone] Nela Sheth RN Unavailable Unavailable Ella Matias PA-C Unavailable Santi Heller MD Unavailable Aashish Leone MD Unavailable Unavail able Tato Mallory MD Unavailable Chirag Taylor MD Primary Care Provider + Miguel Culver PA-C Unavailable Wesley Dugan MD Unavailable [phone] Reason for Visit * Reason Comments Medication Refill Encounter Details Date Type Department Care Team (Late st Contact Info) Description 01/24/2020 Refill [facility] [address] [place] [phone] [place] [id number] [place] [address] Medication Refill Social History Tobacco Use Types Packs/Day Years Used Date Smoking Tobacco: Former Cigarettes 0 1958 - 2016 Smokeless Tobacco: Never Alcohol Use Standard Drinks/Week Comments Not Currently 0 (1 standard drink = 0.6 oz pur e alcohol) PHQ-2 Answer Date Recorded PHQ-2 Score 2 10/16/2019 Sex and Gender Information Value Date Recorded Sex Assigned at Male 03/30/2018 7:28 AM DIGITAL MARKETING OFFICER Gender Identity Male 03/30/2018 7:28 AM DIGITAL MARKETING OFFICER Sexual Orientation Straight 02/18/2018 9: 07 AM DIGITAL MARKETING OFFICER COVID-19 Exposure Response Date Recorded In the last month, have you been in contact with someone who was confirmed or suspected to have Coronavirus / COVID-19? No / Unsure 01/15/2020 9:30 AM DIGITAL MARKETING OFFICER documented as of this encounter Miscellaneous Notes * Telephone Encounter - Amarilis Noble RN - 01/26/2020 1:38 PM CST Routing refill request to provider for review/approval because: Allergy warning Amarilis Noble RN, BSN TAL MARKETING OFFICER documented in this encounter Plan of Treatment Not on file documented as of this encounter Visit Diagnoses Diagnosis Hx of coronary artery disease- Primary Personal history of other diseases of circulatory system Vitamin B12 deficiency without anemia Other B-complex deficiencies Panlobular emphysema (H) Other emphysema documented in this encounter Additional Health Concerns Assessment Noted Time PHQ-9 Depression Total Score: 7 10/16/19 20 7:11 AM CDT documented as of this encounter Care Teams Business Analyst Consultant Relationship Specialty [place] [address] [place] [address] PCP - General Family Practice 03/14/21 [place] [address] [address] PCP - General 03/15/20 03/13/21 [place] [address] [place] [address] Assigned PCP 09/19/14 02/23/22 Nela Sheth, RN Personal Advocate & Liaison (PAL) Family Practice 10/13/19 03/14/20 Ella Matias PA-C [address] [place] [address] Assigned Cancer Care Provider 01/01/20 03/18/21 Santi Heller MD [address] [facility] [address] [place], [place] [address] Assigned Surgical Provider 01/01/2003/01 Aashish Leone MD Assigned Heart and Vascular Provider 01/01/20 05/07/20 [place] [address] [facility] [address] [place] [address] Assigned Musculoskeletal Provider 01/01/20 07/23/20 Miguel Culver PA-C [address] [place] [address] Assigned Heart and Vascular Provider 05/25/20 04/29/21 [place] [address] [place] [address] Assigned PCP 05/05/22 10/19/22 documented as of this encounter
--- OUTSIDE RECORDS SUMMARY | 2023-09-26 14:49 | XMS_ITS | Encounter Summary ---
Author Organization [facility] Address [address] [place] [address]. [place] [address] Care Team Providers Care Horizontal Boring Mill Set Up Operator Name Role Phone Wesley Dugan MD Primary Care Provider Wesley Dugan MD Unavailable [phone] Nela Sheth RN Unavailable Unavailable Ella Matias PA-C Unavailable Santi Heller MD Unavailable Aashish Leone MD Unavailable Unavail able Tato Mallory MD Unavailable Chirag Taylor MD Primary Care Provider + Miguel Culver PA-C Unavailable Wesley Dugan MD Unavailable [phone] Reason for Visit * Reason Comments Medication Refill Encounter Details Date Type Department Care Team (Late st Contact Info) Description [facility] [address] [place] [phone] [place] [id number] [place] [address] Medication Refill Social History Tobacco Use Types Packs/Day Years Used Date Smoking Tobacco: Former Cigarettes 0 1958 - 2016 Smokeless Tobacco: Never Alcohol Use Standard Drinks/Week Comments Not Currently 0 (1 standard drink = 0.6 oz pur e alcohol) PHQ-2 Answer Date Recorded PHQ-2 Score 2 10/16/2019 Sex and Gender Information Value Date Recorded Sex Assigned at Male 03/30/2018 7:28 AM MANAGER OF ENGINEERING Gender Identity Male 03/30/2018 7:28 AM MANAGER OF ENGINEERING Sexual Orientation Straight 02/18/2018 9: 07 AM MANAGER OF ENGINEERING documented as of this encounter Miscellaneous Notes * Telephone Encounter - Brooklyn Katz RN - 12/15/2019 9:15 AM CDT Prescription approved per [facility] Refill Protocol. Brooklyn Katz RN on 12/15/2019 at 9:15 AM documented in this encounter Plan of Treatment Not on file documented as of this encounter Visit Diagnoses Diagnosis Panlobular emphysema (H) Other emphysema documented in this encounter Additional Health Concerns Assessment Noted Time PHQ-9 Depression Total Score: 7 10/16/19 20 7:11 AM CDT documented as of this encounter Care Teams Horizontal Boring Mill Set Up Operator Relationship Specialty [place] [address] [place], [place] [id number] PCP - General Family Practice 03/14/21 Chirag Taylor MD [address] [place] [id number] PCP - General 03/15/20 03/13/21 [place] [address] [place] [address] Assigned PCP 09/19/14 02/23/22 Nela Sheth RN Personal Advocate & Liaison (PAL) Family Practice 10/13/19 03/14/20 Ella Matias, NIRC [address] [place] [address] Assigned Cancer Care Provider 01/01/20 03/18/21 Santi Heller MD [address] [facility] [address] [place] [address] Assigned Surgical Provider 01/01/2003/01 Aashish Leone MD Assigned Heart and Vascular Provider 01/01/20 05/07/20 [place] [address] [facility] [address] [place], [place] [address] Assigned Musculoskeletal Provider 01/01/20 07/23/20 Miguel Cuvler PA-C [address] [place] [address] Assigned Heart and Vascular Provider 05/25/20 04/29/21 [place] [address] [place] [address] Assigned PCP 05/05/22 10/19/22 documented as of this encounter
--- OUTSIDE RECORDS SUMMARY | 2023-09-26 14:49 | XMS_ITS | Encounter Summary ---
Author Organization [facility] Address [address] [place] [address]. [place] [address] Care Team Providers Care Automation Control Technician Name Role Phone Wesley Dugan MD Primary Care Provider Wesley Dugan MD Unavailable [phone] Nela Sheth RN Unavailable Unavailable Ella Matias PA-C Unavailable Santi Heller MD Unavailable Aashish Leone MD Unavailable Unavail able Tato Mallory MD Unavailable [phone] Chirag Taylor MD Primary Care Provider + Miguel Culver PA-C Unavailable [phone] Wesley Dugan MD Unavailable [phone] Reason for Visit * Reason Comments Medication Refill Encounter Details Date Type Department Care Team (Late st Contact Info) Description 12/11/[facility] [address] [place] [phone] [place] [id number] [place] [address] Medication Refill Social History Tobacco Use Types Packs/Day Years Used Date Smoking Tobacco: Former Cigarettes 0 1958 - 2016 Smokeless Tobacco: Never Alcohol Use Standard Drinks/Week Comments Not Currently 0 (1 standard drink = 0.6 oz pur e alcohol) PHQ-2 Answer Date Recorded PHQ-2 Score 2 10/16/2019 Sex and Gender Information Value Date Recorded Sex Assigned at Male 03/30/2018 7:28 AM FILTERING MACHINE TENDER HELPER Gender Identity Male 03/30/2018 7:28 AM FILTERING MACHINE TENDER HELPER Sexual Orientation Straight 02/18/2018 9: 07 AM FILTERING MACHINE TENDER HELPER documented as of this encounter Miscellaneous Notes * Telephone Encounter - Naida Vasquez RN - 12/11/2019 11:27 AM CDT Prescription approved per [facility] Refill Protocol. Naida Vasquez RN Flex documented in this encounter Plan of Treatment Not on file documented as of this encounter Visit Diagnoses Diagnosis Panlobular emphysema (H) Other emphysema documented in this encounter Additional Health Concerns Assessment Noted Time PHQ-9 Depression Total Score: 7 10/16/19 20 7:11 AM CDT documented as of this encounter Care Teams Automation Control Technician Relationship Specialty [place] [address] [place], [place] [id number] PCP - General Family Practice 03/14/21 [place] [address] [address] PCP - General 03/15/20 03/13/21 [place] [address] [place] [address] Assigned PCP 09/19/14 02/23/22 Nela Sheth RN Personal Advocate & Liaison (PAL) Family Practice 10/13/19 03/14/20 Ella Matias, PA-C [address] [place] [address] Assigned Cancer Care Provider 01/01/20 03/18/21 Santi Heller MD 6363 [facility] 500 [place] [address] Assigned Surgical Provider 01/01/2003/01 Aasihsh Leone MD Assigned Heart and Vascular Provider 01/01/20 05/07/20 [place] [address] [facility] [address] [place], [place] [address] Assigned Musculoskeletal Provider 01/01/20 07/23/20 Miguel Culver PA-C 6405 [place], [place] [address] Assigned Heart and Vascular Provider 05/25/20 04/29/21 [place] [address] [place], [place] [id number] Assigned PCP 05/05/22 10/19/22 documented as of this encounter
--- OUTSIDE RECORDS SUMMARY | 2023-09-26 14:49 | XMS_ITS | Encounter Summary ---
Author Organization [facility] Address [address] [place] [address] Care Team Providers Care Mathematics Teacher Name Role Phone Wesley Dugan MD Primary Care Provider Wesley Dugan MD Unavailable [phone] Ella Matias PA-C Unavailable Santi Heller MD Unavailable [phone] Tato Mallory MD Unavailable [phone] Chirag Taylor MD Primary Care Provider + Miguel Culver PA-C Unavailable Wesley Dugan MD Unavailable [phone] Encounter Details Date Type Department Care Team (Late st Contact Info) Description 06/10/2020 Documentation Only INTERFACED REPORT Unknown, Provider Social History Tobacco Use Types Packs/Day Years Used Date Smoking Tobacco: Former Cigarettes 0 1958 - 2016 Smokeless Tobacco: Never Alcohol Use Standard Drinks/Week Comments Not Currently 0 (1 standard drink = 0.6 oz pur e alcohol) PHQ-2 Answer Date Recorded PHQ-2 Score 2 10/16/2019 Sex and Gender Information Value Date Recorded Sex Assigned at Male 03/30/2018 7:28 AM FISH HATCHERY MAN Gender Identity Male 03/30/2018 7:28 AM FISH HATCHERY MAN Sexual Orientation Straight 02/18/2018 9: 07 AM FISH HATCHERY MAN documented as of this encounter Plan of Treatment Not on file documented as of this encounter Visit Diagnoses Not on filedocumented in this encounter Additional Health Concerns Assessment Noted Time PHQ-9 Depression Total Score: 7 10/16/19 20 7:11 AM CDT documented as of this encounter Care Teams Mathematics Teacher Relationship Specialty [place] [address] [place] [address] PCP - General Family Practice 03/14/21 [place] [address] [address] PCP - General 03/15/20 03/13/21 [place] [address] [place] [address] Assigned PCP 09/19/14 02/23/22 Ella Matias PA-C [address]09 [place], [place] [address] Assigned Cancer Care Provider 01/01/20 03/18/21 Santi Heller MD [address] [address] Assigned Surgical Provider 01/01/2003/01 [place] [address] [address] Assigned Musculoskeletal Provider 01/01/20 07/23/20 Miguel Culver PA-C 6405 [place] [address] Assigned Heart and Vascular Provider 05/25/20 04/29/21 [place] [address] [place] [address] Assigned PCP 05/05/22 10/19/22 documented as of this encounter
--- OUTSIDE RECORDS SUMMARY | 2023-09-26 14:49 | XMS_ITS | Clinical Summary ---
Author Organization [facility] [place], [place] [address] Care Team Providers Care Protective Service Specialist Name Role Phone Yordy Morin MD Primary Care Provider Bennett Ayala Unavailable [phone] Allergies Active Allergy Reactions Criticality Noted Date Comments Bupropion Tinnitus 12/30/2017 tinnitus Isosorbide Headache 08/19/2013 Headache Isosorbide Dinitrate Headache 08/19/2013 Headache Spironolactone Other - Describe In Comment Field Medium 10/31/2018 gynecomastia Topiramate *Unknown 12/01/2018 Doses higher than 50 daily not tolerated Venlafaxine Anxiety 07/13/2019 anxiety Medications Medication Sig Dispensed Refills Start Date End Date Status cyanocobalamin (VITAMIN B12) 1,000 mcg tablet Take 1 Tablet by mouth once daily. 01/26/2020 Active tiotropium (spiriva) 18 mcg inhalation capsule Inhale 18 mcg by mouth once daily. 01/08/2020 Active fexofenadine (EUFEMIA) 180 mg tablet Take 180 mg by mouth once daily with a meal. Do not crush or chew. Active albuterol HFA (PRO-AIR; VENTOLIN; PROVENTIL) 90 mcg/actuation inhaler 2 Puffs every 4 hours if needed for Wheezing. 0 01/24/2023 Active allopurinoL (ZYLOPRIM) 100 mg tablet Take 100 mg by mouth once daily. 0 01/24/2023 Active Symbicort 80-4.5 mcg/actuation (80-4.5 mcg each actuation) inhaler Inhale 2 Puffs by mouth two times daily. 10.2 g 01/24/2023 Active famotidine (PEPCID) 20 mg tabletIndications:Gas troesophageal reflux disease, unspecified whether esophagitis present,Dysphagia, unspecified type Take 1 Tablet (20 mg) by mouth once daily. 01/24/2023 Active fluticasone (50 mcg per actuation) nasal solution (FLONASE) Inhale 2 Sprays to both nostrils two times daily. 16 g 01/24/2023 Active albuterol-ipratropium (DUONEB) (2.5-0.5 mg) in 3 mL NEBULIZATION solution Inhale 3 ml via nebulizer up to three times daily if needed 0 01/24/2023 Active melatonin 5 mg tab tablet Take 2 Tablets (10 mg) by mouth at bedtime if needed for Sleep. 01/24/2023 Active methIMAzole (TAPAZOLE) 5 mg tablet Take 5 mg by mouth once daily. Active nitroglycerin (NITROSTAT) 0.4 mg sublingual tabletIndications:Car diovascular symptoms,Peripheral vascular disease (HC),Hx of coronary artery disease Place 0.4 mg under the tongue every 5 minutes if needed. 30 Tablet 01/24/2023 Active omeprazole (PRILOSEC) 20 mg Delayed-Release capsule Take 1 Capsule (20 mg) by mouth once daily before a meal. 0 01/24/2023 Active Daliresp 500 mcg tablet Take 500 mcg by mouth once daily. 0 01/24/2023 Active rosuvastatin (CRESTOR) 40 mg tablet Take 1 Tablet (40 mg) by mouth at bedtime. 0 01/24/2023 Active triamcinolone (ARISTOCORT; KENALOG) 0.1 % cream Apply topically to affected area(s) 2 times daily if needed. Active cholecalciferol, Vitamin D3, 25 mcg (1,000 unit) chew chewable tablet Chew 2 Tablets (2,000 units) by mouth once daily. 40 units = 1 mcg (1000 units = 25 mcg) 0 01/24/2023 Active acetaminophen (TYLENOL EXTRA STRGTH) 500 mg tabletIndications:S/P total left hip arthroplasty Take 1,000 mg by mouth every 6 hours if needed. Max acetaminophen dose: 4000mg in 24 hrs. 90 Tablet 01/24/2023 Active carvediloL (COREG) 12.5 mg tabletIndications:Typ ical atrial flutter (HC) Take 1 Tablet (12.5 mg) by mouth two times daily with meals. 0 02/11/2023 Active aspirin chewable 81 mg chewable tabletIndications:Ath erosclerotic heart disease of [place] coronary artery with other forms of angina pectoris (HC) Chew 1 Tablet (81 mg) by mouth once daily with a meal. 0 02/12/2023 Active apixaban (ELIQUIS) 5 mg tabletIndications:pul monary thromboembolism Take 1 Tablet (5 mg) by mouth two times daily. 60 Tablet 02/12/2023 Active finasteride (PROSCAR) 5 mg tabletIndications:Navi ign prostatic hyperplasia, unspecified whether lower urinary tract symptoms present Take 0.25 Tablets (1.25 mg) by mouth every morning. 0 02/12/2023 Active tamsulosin (FLOMAX) 0.4 mg capsuleIndications:Be nign prostatic hyperplasia, unspecified whether lower urinary tract symptoms present Take 2 Capsules (0.8 mg) by mouth once daily after a meal. 0 02/12/2023 Active oxyCODONE (ROXICODONE) 5 mg immediate release tabletIndications:S/P total left hip arthroplasty Take 1 tablet by mouth twice daily. May take an additional 1 tablet by mouth every 4 hours if needed, but not to exceed more than 3 PRN doses per 24 hours. 20 Tablet 02/18/2023 Active Active Problems Problem Noted Date Diagnosed Date Acute pulmonary embolism with acute cor pulmonal e 02/06/2023 Atrial flutter 02/06/2023 Gout 02/06/2023 Congestive heart failure, un specified HF chronicity, unspecified heart failure type 02/01/2023 Chronic pancreatitis, unspecified pancreatitis t ype 02/01/2023 Atherosclerotic heart diseas e of [place] coronary artery with other forms of angina pectoris 02/01/2023 Benign prostatic hyperplasia with weak urinary s tream 10/16/2019 Overview: Last Assessment & Plan: Urology appt next week Monoclonal gammopathy 08/19/2019 Arthritis of right acromioclavicular joint 07/08 Overview: Last Assessment & Plan: Orthopedics steroid injection 2 years ago. He does not recall benefit or lack thereof. Recommended trial of repeat injection Avascular necrosis of right humeral head 020 Overview: Last Assessment & Plan: Complains of shoulder pain. Imaged 2 years ago with possible loose body. He has topical and oral analgesics Actinic keratosis 10/16/2018 Overview: Last Assessment & Plan: Discussed chapo history, rx Avascular necrosis of bone of hip, left 10/17/19 19 Overview: Last Assessment & Plan: He complains about pain. S/p coring procedure, bike every other day. Discussed chronic pain, options. Ortho involved Intrinsic eczema 09/04/2018 Graves disease 06/30/2018 Overview: Last Assessment & Plan: Endocrinology adjusted methimazole Tinnitus, bilateral 05/09/2018 Overview: Last Assessment & Plan: Reduced with new hearing aides Iron deficiency 03/28/2018 History of tobacco abuse 08/21/2017 Overview: Last Assessment & Plan: Now quit 3 years Peripheral polyneuropathy 08/21/2017 Overview: Last Assessment & Plan: Opioid therapy Continuous opioid dependence 05/21/2017 Overview: Last Assessment & Plan: Stable use Chronic pain syndrome 04/22/2017 Overview: Patient is followed by Dr Brandon Kelly MD for ongoing prescription of pain medication. All refills should only be approved by this provider, or covering partner. Last Assessment & Plan: Controlled substance agreement filed Primary osteoarthritis of ankle 03/05/2017 Sleep related hypoventilatio n in conditions classified elsewhere 02/03/2016 Overview: C PAP Replacing diagnoses that were inactivated after the 12/09/2020 regulatory import. Primary osteoarthritis of right foot 07/25/2015 Personal history of calcium pyrophosphate deposition disease (CPPD) 07/04/2015 Overview: Last Assessment & Plan: Colchicine therapy Panlobular emphysema 06/13/2015 Overview: Last Assessment & Plan: NUR, seems improved subjectively. Carpal tunnel syndrome of right wrist 01/31/2015 REGINALDO (obstructive sleep apnea) 11/23/2014 Overview: Last Assessment & Plan: Complex sleep-disordered breathing with central apnea. No CPAP Vitamin B12 deficiency without anemia 08/10/2014 Overview: Diagnosis updated by automated process. Provider to review and confirm. Peripheral vascular disease 02/19/2014 Overview: Last Assessment & Plan: BP Readings from Last 1 Encounters: 08/17/19 117/71 continue Right femoral endarterectomy with pericardial patch angioplasty 2012 Last Assessment & Plan: S/p Angioplasty, symptoms stable Coronary artery disease invo lving [place] coronary artery of [place] heart without angina pectoris 08/19/2013 Overview: cardiac cath 08/2017: obtuse marginal is chronically occluded; CABG 1996: ADRIENNE to RCA, sequential ARRIAZA to D1, D2 & distal LAD, SVG to OM Last Assessment & Plan: Asymptomatic. Cardiology in October Ischemic cardiomyopathy 08/19/2013 Overview: Last Assessment & Plan: Discussed. . Nitroglycerin spray rx sent. GERD (gastroesophageal reflux disease) 4 Onychomycosis 06/09/2013 Hyperlipidemia LDL goal <70 02/17/2013 Overview: Last Assessment & Plan: Treated, continue Rosuvastatin 40mg. Recurrent major depressive disorder, in partial remission 01/28/2013 Overview: Last Assessment & Plan: Did not tolerate antidepressants, declines further interventions Abdominal aortic aneurysm 01/21/2013 Overview: Endovascular repair Hx of coronary artery disease 01/21/2013 Overview: Last Assessment & Plan: Chronic non cardiac chest pain. Cardiology last 10/2018. Please refer to that note COPD (chronic obstructive pulmonary disease) Tobacco dependence syndrome 08/01/2011 Encounters Date Type Department Care Team Description 07/22/2023 8:00 AM CDT Office Visit [facility] [address] [facility] [address] [place] [address] Dalton Escobar MD Follow Up (3 month f/u review zio done 05/02. /patient states feeling not well. States lots of congestion, SOB, coughing up a lot of flem. Hip replacement 6 month ago.) 07/22/2023 Travel from Last 3 Months Social History Tobacco Use Types Packs/Day Years Used Date Smoking Tobacco: Former Cigarettes Q uit: 09/2016 Smokeless Tobacco: Never Tobacco Cessation:Counseling Given: No Alcohol Use Standard Drinks/Week Comments Not Currently 0 (1 standard drink = 0.6 oz pur e alcohol) Social Connections Answer Date Recorded Frequency of Communication with Friends and Fami ly Not on file 03/11/2021 Financial Resource Strain Answer Date R ecorded Difficulty of Paying Living Expenses Not on file 03/11/2021 Difficulty of Paying Living Expenses Not on file 03/11/2021 Sex and Gender Information Value Date Recorded Sex Assigned at Not on file Gender Identity Not on file Sexual Orientation Not on file Obstetrics History Last Filed Vital Signs Vital Sign Reading Time Taken Comments Blood Pressure 94/62 07/22/2023 7:55 AM CDT Pulse 88 07/22/2023 7:55 AM CDT Temperature 36.6 ??C (97.8 ??F) 02/12/2023 5:55 AM CS T Respiratory Rate 18 02/12/2023 7:55 AM LAB TECH Oxygen Saturation 95% 07/22/2023 7:55 AM CDT Inhaled Oxygen Concentration - - Weight 89.4 kg (197 lb 3.2 oz) 07/22/2023 7:55 A M CDT Height 185.4 cm (6' 1) 07/22/2023 7:55 AM CDT Body Mass Index 26.02 07/22/2023 7:55 AM CDT Plan of Treatment Upcoming Encounters Date Type Department Care Team (Late st Contact Info) Description 11/18/2023 10:00 AM CDT Office Visit [facility] [address] [facility] [address] [place] [phone] Maurilio Thurman MD [address] [facility] [address] [place], [place] [id number] Health Maintenance Due Date Last Done Comments Pneumococcal series for age 65+ (1 of 2 - PCV) 1952 Tdap 1957 Depression screening for age 12+ 1958 Hepatitis C screening for age 18-79 1964 Tetanus booster 1966 Zoster (shingles) series for age 50+ (1 of 2) 1996 Medicare Wellness for age 65+ 10/04/2011 COVID-19 vaccine series ( season) 2022 10/15/2022, 06/09/2020, 05/12/2020 Influenza for age 65+ 11/10/2023 BMI (ht and wt on same day) for age 18+ 07/21/2024 07/22/2023 Advance Directives * Full Code (Latest Code Status on File) Date Activated Date Inactivated Comments 02/06/2023 8:49 PM 02/12/2023 11:55 AM Question Answer Comments Code Status Discussion: Reviewed Preferences * Full Code Date Activated Date Inactivated Comments 02/22/2022 9:26 AM 02/22/2022 6:27 PM Question Answer Comments Code Status Discussion: Reviewed Preferences Care Teams Protective Service Specialist Relationship Specialty Start Date End Date Yordy Morin MD [address] [place] [address] PCP - General Internal Medicine 08/17/21 Bennett Ayala [facility] [address] [place], [place] [id number] Occupational Therapy 02/14/23
--- OUTSIDE RECORDS SUMMARY | 2023-09-26 14:49 | XMS_ITS | Encounter Summary ---
Author Organization [facility] Address [address] [place] [address]. [place] [address] Care Team Providers Care Housetrailer Servicer Name Role Phone Wesley Dugan MD Primary Care Provider [phone] Wesley Dugan MD Unavailable [phone] Nela Sheth RN Unavailable Unavailable Ella Matias PA-C Unavailable Santi Heller MD Unavailable Aashish Leone MD Unavailable Unavail able Tato Mallory MD Unavailable Chirag Taylor MD Primary Care Provider + Miguel Culver PA-C Unavailable [phone] Wesley Dugan MD Unavailable [phone] Reason for Visit * Reason Comments Medication Refill Encounter Details Date Type Department Care Team (Late st Contact Info) Description 02/21/2020 Refill [facility] [address] [place] [phone] [place] [id number] [place] [address] Medication Refill Social History Tobacco Use Types Packs/Day Years Used Date Smoking Tobacco: Former Cigarettes 0 1958 - 2016 Smokeless Tobacco: Never Alcohol Use Standard Drinks/Week Comments Not Currently 0 (1 standard drink = 0.6 oz pur e alcohol) PHQ-2 Answer Date Recorded PHQ-2 Score 2 10/16/2019 Sex and Gender Information Value Date Recorded Sex Assigned at Male 03/30/2018 7:28 AM MEASURING MACHINE OPERATOR Gender Identity Male 03/30/2018 7:28 AM MEASURING MACHINE OPERATOR Sexual Orientation Straight 02/18/2018 9: 07 AM MEASURING MACHINE OPERATOR documented as of this encounter Miscellaneous Notes * Telephone Encounter - Charlotte Castro RN - 02/23/2020 2:24 PM CST Medication refilled per [facility] protocol Charlotte Castro RN URING MACHINE OPERATOR documented in this encounter Plan of Treatment Not on file documented as of this encounter Visit Diagnoses Diagnosis Heartburn documented in this encounter Additional Health Concerns Assessment Noted Time PHQ-9 Depression Total Score: 7 10/16/19 20 7:11 AM CDT documented as of this encounter Care Teams Housetrailer Servicer Relationship Specialty [place] [address] [place] [address] PCP - General Family Practice 03/14/21 Chirag Taylor MD [address] [place] [id number] PCP - General 03/15/20 03/13/21 [place] [address] [place] [address] Assigned PCP 09/19/14 02/23/22 Nela Sheth RN Personal Advocate & Liaison (PAL) Family Practice 10/13/19 03/14/20 Ella Matias, NIRC [address] [place] [address] Assigned Cancer Care Provider 01/01/20 03/18/21 Santi Heller MD 6363 [facility] [address] [place] [address] Assigned Surgical Provider 01/01/2003/01 Aashish Leone MD Assigned Heart and Vascular Provider 01/01/20 05/07/20 [place] [address] [facility] [address] [place], [place] [address] Assigned Musculoskeletal Provider 01/01/20 07/23/20 Miguel Culver PA-C [address] [facility] [place] [address] Assigned Heart and Vascular Provider 05/25/20 04/29/21 [place] [address] [place], [place] [id number] Assigned PCP 05/05/22 10/19/22 documented as of this encounter
--- OUTSIDE RECORDS SUMMARY | 2023-09-26 14:49 | XMS_ITS | Encounter Summary ---
Author Organization [facility] Address [address] [place] [address]. [place] [address] Care Team Providers Care Tour Bus Driver/Guide Name Role Phone Wesley Dugan MD Primary Care Provider Wesley Dugan MD Unavailable [phone] Nela Sheth RN Unavailable Unavailable Ella Matias PA-C Unavailable Santi Heller MD Unavailable Aashish Leone MD Unavailable Unavail able Tato Mallory MD Unavailable [phone] Chirag Taylor MD Primary Care Provider + Miguel Culver PA-C Unavailable [phone] Wesley Dugan MD Unavailable [phone] Reason for Visit * Reason Comments Medication Refill Encounter Details Date Type Department Care Team (Late st Contact Info) Description 03/10/2020 Refill [facility] [address] [place] [phone] [place]ug[place] [address] [place] [address] Medication Refill Social History Tobacco Use Types Packs/Day Years Used Date Smoking Tobacco: Former Cigarettes 0 1958 - 2016 Smokeless Tobacco: Never Alcohol Use Standard Drinks/Week Comments Not Currently 0 (1 standard drink = 0.6 oz pur e alcohol) PHQ-2 Answer Date Recorded PHQ-2 Score 2 10/16/2019 Sex and Gender Information Value Date Recorded Sex Assigned at Male 03/30/2018 7:28 AM AFFILIATE MARKETING SPECIALIST Gender Identity Male 03/30/2018 7:28 AM AFFILIATE MARKETING SPECIALIST Sexual Orientation Straight 02/18/2018 9: 07 AM AFFILIATE MARKETING SPECIALIST documented as of this encounter Miscellaneous Notes * Telephone Encounter - Nela Sheth RN - 03/15/2020 3:34 PM CST PCP changes to Dr. Lane Taylor @ [facility] in [place], [place]. Pt's future rx refills to be obtained from pt's PCP for insurance purposes. Nela Sheth, Registered Nurse, Patient Advocate [facility] LIATE MARKETING SPECIALIST * Telephone Encounter - Wesley Dugan MD - 03/14/2020 5:12 PM CST Due to insurance, changed to Sienna Taylor [place] Please change PCP Refills to new PCP Wesley Dugan MD LIATE MARKETING SPECIALIST * Telephone Encounter - Jazmin Rothman RN - 03/14/2020 8:07 AM CST Routing refill request to provider for review/approval because: Drug not active on patient's medication list Not on med list Jazmin Rothman RN, BSN Message handled by CLINIC NURSE. LIATE MARKETING SPECIALIST documented in this encounter Plan of Treatment Not on file documented as of this encounter Visit Diagnoses Not on filedocumented in this encounter Additional Health Concerns Assessment Noted Time PHQ-9 Depression Total Score: 7 10/16/19 20 7:11 AM CDT documented as of this encounter Care Teams Tour Bus Driver/Guide Relationship Specialty [place] [address] [place] [address] PCP - General Family Practice 03/14/21 [place] [address] [address] PCP - General 03/15/20 03/13/21 [place] [address] [place] [address] Assigned PCP 09/19/14 02/23/22 Nela Sheth RN Personal Advocate & Liaison (PAL) Family Practice 10/13/19 03/14/20 Ella Matias PA-C [address] [place] [address] Assigned Cancer Care Provider 01/01/20 03/18/21 Santi Heller MD [address] [facility] [address] [address] Assigned Surgical Provider 01/01/2003/01 Aashish Leone MD Assigned Heart and Vascular Provider 01/01/20 05/07/20 [place] [address] [address] Assigned Musculoskeletal Provider 01/01/20 07/23/20 Miguel Culver PA-C [address] [facility] [address] [place], [place] [address] Assigned Heart and Vascular Provider 05/25/20 04/29/21 [place] [address] [place] [address] Assigned PCP 05/05/22 10/19/22 documented as of this encounter
--- OUTSIDE RECORDS SUMMARY | 2023-09-26 14:49 | XMS_ITS | Encounter Summary ---
Author Organization [place] Address [address] [place] [address]. [place] [address] Care Team Providers Care Poly Area Supervisor Name Role Phone Wesley Dugan MD Primary Care Provider [phone] Wesely Dugan MD Unavailable [phone] Nela Sheth RN Unavailable Unavailable Ella Matias PA-C Unavailable Santi Heller MD Unavailable Aashish Leone MD Unavailable Unavail able Tato Mallory MD Unavailable [phone] Chirag Taylor MD Primary Care Provider + Miguel Culver PA-C Unavailable Wesley Dugan MD Unavailable [phone] Reason for Visit * Reason Onset Date Comments Medication Refill Refill Request 01/12/2020 Encounter Details Date Type Department Care Team (Late st Contact Info) Description 01/11/2020 Refill [facility] [id number] [place] [phone] [place] [address] [place] [address] Medication Refill; Refill Request Social History Tobacco Use Types Packs/Day Years Used Date Smoking Tobacco: Former Cigarettes 0 1958 - 2016 Smokeless Tobacco: Never Alcohol Use Standard Drinks/Week Comments Not Currently 0 (1 standard drink = 0.6 oz pur e alcohol) PHQ-2 Answer Date Recorded PHQ-2 Score 2 10/16/2019 Sex and Gender Information Value Date Recorded Sex Assigned at Male 03/30/2018 7:28 AM MOTOR EQUIPMENT COMMANDING OFFICER Gender Identity Male 03/30/2018 7:28 AM MOTOR EQUIPMENT COMMANDING OFFICER Sexual Orientation Straight 02/18/2018 9: 07 AM MOTOR EQUIPMENT COMMANDING OFFICER COVID-19 Exposure Response Date Recorded In the last month, have you been in contact with someone who was confirmed or suspected to have Coronavirus / COVID-19? No / Unsure 01/07/2020 7:50 AM CDT documented as of this encounter Miscellaneous Notes * Telephone Encounter - Wesley Dugan MD - 01/11/2020 12:03 PM CST Sent Needs visit virtual Dec Wesley Dugan MD R EQUIPMENT COMMANDING OFFICER * Telephone Encounter - Brooklyn Katz RN - 01/11/2020 10:23 AM MOTOR EQUIPMENT COMMANDING OFFICER Routing refill request to provider for review/approval because: Drug not on the [facility] refill protocol Brooklyn Katz RN on 01/11/2020 at 10:23 AM R EQUIPMENT COMMANDING OFFICER documented in this encounter Plan of Treatment Not on file documented as of this encounter Visit Diagnoses Diagnosis Peripheral polyneuropathy Unspecified hereditary and idiopathic peripheral neuropathy Chronic pain syndrome documented in this encounter Additional Health Concerns Assessment Noted Time PHQ-9 Depression Total Score: 7 10/16/19 20 7:11 AM CDT documented as of this encounter Care Teams Poly Area Supervisor Relationship Specialty [place] [address] [place] [address] PCP - General Family Practice 03/14/21 [place] [address] [address] PCP - General 03/15/20 03/13/21 [place] [address] [place] [address] Assigned PCP 09/19/14 02/23/22 Nela Sheth, RN Personal Advocate & Liaison (PAL) Family Practice 10/13/19 03/14/20 Ella Matias PA-C [address]09 [place] [address] Assigned Cancer Care Provider 01/01/20 03/18/21 Santi Heller MD [address] [facility] [address] [place] [address] Assigned Surgical Provider 01/01/2003/01 Aashish Leone MD Assigned Heart and Vascular Provider 01/01/20 05/07/20 [place] [address] [facility] [address] [place] [address] Assigned Musculoskeletal Provider 01/01/20 07/23/20 Miguel Culver PA-C [address] [place] [address] Assigned Heart and Vascular Provider 05/25/20 04/29/21 [place] [address] [place] [address] Assigned PCP 05/05/22 10/19/22 documented as of this encounter
--- OUTSIDE RECORDS SUMMARY | 2023-09-26 14:49 | XMS_ITS | Encounter Summary ---
Author Organization [place] Address [facility] [place] [address] Care Team Providers Care Quality Assurance Consultant Name Role Phone Wesley Dugan MD Primary Care Provider [phone] Wesley Dugan MD Unavailable [phone] Nela Sheth RN Unavailable Unavailable Ella Matias PA-C Unavailable Santi Heller MD Unavailable [phone] Aashish Leone MD Unavailable Unavail able Tato Mallory MD Unavailable [phone] Chirag Taylor MD Primary Care Provider + Miguel Culver PA-C Unavailable [phone] Wesley Dugan MD Unavailable [phone] Reason for Visit * Reason Onset Date Comments Call Back 10/12/2019 after 1pm call B ack- 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 Please call Butch at: [phone]) Social History Tobacco Use Types Packs/Day Years Used Date Smoking Tobacco: Former Cigarettes 0 1958 - 2016 Smokeless Tobacco: Never Alcohol Use Standard Drinks/Week Comments Not Currently 0 (1 standard drink = 0.6 oz pur e alcohol) PHQ-2 Answer Date Recorded PHQ-2 Score 2 10/16/2019 Sex and Gender Information Value Date Recorded Sex Assigned at Male 03/30/2018 7:28 AM POLYMERIZATION OVEN TENDER Gender Identity Male 03/30/2018 7:28 AM POLYMERIZATION OVEN TENDER Sexual Orientation Straight 02/18/2018 9: 07 AM POLYMERIZATION OVEN TENDER COVID-19 Exposure Response Date Recorded In the last month, have you been in contact with someone who was confirmed or suspected to have Coronavirus / COVID-19? 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 Please call Butch at: [phone] Action Taken: Message routed to: [facility] Clinical Pool Travel Screening: Not Applicable documented in this encounter Plan of Treatment Not on file documented as of this encounter Visit Diagnoses Not on filedocumented in this encounter Additional Health Concerns Assessment Noted Time PHQ-9 Depression Total Score: 8 08/15/19 20 7:03 AM CDT documented as of this encounter Care Teams Quality Assurance Consultant Relationship Specialty [place] [address] [place] [address] PCP - General Family Practice 03/14/21 [place] [address] [address] PCP - General 03/15/20 03/13/21 [place] [address] [place] [address] Assigned PCP 09/19/14 02/23/22 Nela Sheth, JARON Personal Advocate & Liaison (PAL) Family Practice 10/13/19 03/14/20 Ella Matias PA-C [address] [place] [id number] Assigned Cancer Care Provider 01/01/20 03/18/21 Santi Heller MD [address] [address] Assigned Surgical Provider 01/01/2003/01 Aashish Leone MD Assigned Heart and Vascular Provider 01/01/20 05/07/20 Tato Mallory MD [address] [place] [address] Assigned Musculoskeletal Provider 01/01/20 07/23/20 Miguel Culver PA-C [address] [place] [address] Assigned Heart and Vascular Provider 05/25/20 04/29/21 [place] [address] [place] [address] Assigned PCP 05/05/22 10/19/22 documented as of this encounter
--- OUTSIDE RECORDS SUMMARY | 2023-09-26 14:50 | XMS_ITS | Encounter Summary ---
Author Organization [place] Address [address] [place] [address]. [place] [address] Care Team Providers Care Driver Retraining Instructor Name Role Phone Wesley Dugan MD Primary Care Provider Wesley Dugan MD Unavailable [phone] Nela Sheth RN Unavailable Unavailable Ella Matias PA-C Unavailable Santi Heller MD Unavailable Aashish Leone MD Unavailable Unavail able Tato Mallory MD Unavailable Chirag Taylor MD Primary Care Provider + Miguel Culver PA-C Unavailable Wesley Dugan MD Unavailable [phone] Reason for Visit * Reason Comments Medication Refill Encounter Details Date Type Department Care Team (Late st Contact Info) Description 02/23/2019 Refill [facility] [address] [place] [phone] [place] [id number] [place] [address] Medication Refill Social History Tobacco Use Types Packs/Day Years Used Date Smoking Tobacco: Former Cigarettes 0 1958 - 2016 Smokeless Tobacco: Never Alcohol Use Standard Drinks/Week Comments Not Currently 0 (1 standard drink = 0.6 oz pur e alcohol) PHQ-2 Answer Date Recorded PHQ-2 Score 3 02/27/2019 Sex and Gender Information Value Date Recorded Sex Assigned at Male 03/30/2018 7:28 AM DINING MANAGER Gender Identity Male 03/30/2018 7:28 AM DINING MANAGER Sexual Orientation Straight 02/18/2018 9: 07 AM DINING MANAGER documented as of this encounter Miscellaneous Notes * Telephone Encounter - Catherine Posadas RN - 02/25/2019 1:54 PM CST Requested Prescriptions Pending Prescriptions Disp Refills ??? losartan (COZAAR) 25 MG tablet [Pharmacy Med Name: LOSARTAN POTASSIUM 25 MG Tablet] 90 tablet 0 Sig: TAKE 1 TABLET (25 MG) BY MOUTH DAILY Angiotensin-II Receptors Passed - 02/23/2019 1:23 PM Passed - Last blood pressure under 140/90 in past 12 months BP Readings from Last 3 Encounters: 01/19/19 122/76 01/15/19 120/68 01/02/19 129/67 Passed - Recent (12 mo) or future (30 days) visit within the authorizing provider's specialty Patient has had an office visit with the authorizing provider or a provider within the authorizing providers department within the previous 12 mos or has a future within next 30 days. See Patient Info tab in inbasket, or Choose Columns in Meds & Orders section of the refill encounter. Passed - Medication is active on med list Passed - Patient is age 18 or older Passed - Normal serum creatinine on file in past 12 months Recent Labs Lab Test 10/31/18 0723 01/29/18 1317 CR 0.92 < > -- CREAT -- -- 0.8 < > = values in this interval not displayed. Passed - Normal serum potassium on file in past 12 months Recent Labs Lab Test 10/31/18 0723 POTASSIUM 3.9 ??? colchicine (COLCRYS) 0.6 MG tablet [Pharmacy Med Name: COLCRYS 0.6 MG Tablet] 180 tablet 0 Sig: TAKE 1 TABLET TWICE DAILY Gout Agents Protocol Failed - 02/23/2019 1:23 PM Failed - Has Uric Acid on file in past 12 months and value is less than 6 Recent Labs Lab Test 02/22/17 1441 URIC 3.5 If level is 6mg/dL or greater, ok to refill one time and refer to provider. Passed - CBC on file in past 12 months Recent Labs Lab Test 01/02/19 0829 WBC 8.1 RBC 4.96 HGB 14.0 HCT 43.9 PLT 221 Passed - ALT on file in past 12 months Recent Labs Lab Test 01/02/19 0829 ALT 22 Passed - Recent (12 mo) or future (30 days) visit within the authorizing provider's specialty Patient has had an office visit with the authorizing provider or a provider within the authorizing providers department within the previous 12 mos or has a future within next 30 days. See Patient Info tab in inbasket, or Choose Columns in Meds & Orders section of the refill encounter. Passed - Medication is active on med list Passed - Patient is age 18 or older Passed - Normal serum creatinine on file in the past 12 months Recent Labs Lab Test 10/31/18 0723 01/29/18 1317 CR 0.92 < > -- CREAT -- -- 0.8 < > = values in this interval not displayed. ??? SPIRIVA HANDIHALER 18 MCG inhaled capsule [Pharmacy Med Name: SPIRIVA HANDIHALER 18 MCG Capsule] 90 capsule 0 Sig: INHALE THE CONTENTS OF 1 CAPSULE ONE TIME DAILY Asthma Maintenance Inhalers - Anticholinergics Passed - 02/23/2019 1:23 PM Passed - Patient is age 12 years or older Passed - Recent (12 mo) or future (30 days) visit within the authorizing provider's specialty Patient has had an office visit with the authorizing provider or a provider within the authorizing providers department within the previous 12 mos or has a future within next 30 days. See Patient Info tab in inbasket, or Choose Columns in Meds & Orders section of the refill encounter. Passed - Medication is active on med list ??? rosuvastatin (CRESTOR) 40 MG tablet [Pharmacy Med Name: ROSUVASTATIN CALCIUM 40 MG Tablet] 90 tablet 0 Sig: TAKE 1 TABLET EVERY DAY Statins Protocol Passed - 02/23/2019 1:23 PM Passed - LDL on file in past 12 months Recent Labs Lab Test 10/31/18 0723 LDL 77 Passed - No abnormal creatine kinase in past 12 months Recent Labs Lab Test 09/04/18 1528 CKT 171 Passed - Recent (12 mo) or future (30 days) visit within the authorizing provider's specialty Patient has had an office visit with the authorizing provider or a provider within the authorizing providers department within the previous 12 mos or has a future within next 30 days. See Patient Info tab in inbasket, or Choose Columns in Meds & Orders section of the refill encounter. Passed - Medication is active on med list Passed - Patient is age 18 or older Routing refill request to provider for review/approval because: Labs not current: Last uric acid 2016 NG MANAGER documented in this encounter Plan of Treatment Not on file documented as of this encounter Visit Diagnoses Diagnosis Hx of coronary artery disease Personal history of other diseases of circulatory system Personal history of calcium pyrophosphate deposition disease (CPPD) Personal history of arthritis Panlobular emphysema (H) Other emphysema Hyperlipidemia LDL goal <70 Other and unspecified hyperlipidemia documented in this encounter Additional Health Concerns Infection Onset Date Last Indicated Resolved Time Rule Out COVID-19 07/27/2019 07/27/2019 07/27/2019 10:15 PM CDT Assessment Noted Time PHQ-9 Depression Total Score: 8 09/05/19 19 3:51 PM CDT documented as of this encounter Care Teams Driver Retraining Instructor Relationship Specialty [place] [address] [place] [address] PCP - General Family Practice 03/14/21 Chirag Taylor MD [address] [place] [address] PCP - General 03/15/20 03/13/21 [place] [address] [place] [address] Assigned PCP 09/19/14 02/23/22 Nela Sheth RN Personal Advocate & Liaison (PAL) Family Practice 10/13/19 03/14/20 Ella Matias PA-C [address] [place] [address] Assigned Cancer Care Provider 01/01/20 03/18/21 Santi Heller MD 6[address] [facility] [address] [place] [address] Assigned Surgical Provider 01/01/2003/01 Aashish Leone MD Assigned Heart and Vascular Provider 01/01/20 05/07/20 [place] [address] [facility] [address] [place] [address] Assigned Musculoskeletal Provider 01/01/20 07/23/20 Miguel Culver PA-C [address] [place] [address] Assigned Heart and Vascular Provider 05/25/20 04/29/21 [place] [address] [place] [address] Assigned PCP 05/05/22 10/19/22 documented as of this encounter
--- OUTSIDE RECORDS SUMMARY | 2023-09-26 14:50 | XMS_ITS | Encounter Summary ---
Author Organization [facility] Address [address] [place] [address] Care Team Providers Care Dry Cleaning Manager Name Role Phone [facility] Unavailable Ana Maravilla MD Primary Care Provide r Unavailable Wesley Dugan MD Primary Care Provider [phone] Laurence Steele RN Unavailable [phone] Wesley Dugan MD Unavailable [phone] Wesley Dugan MD Unavailable [phone] Nela Sheth RN Unavailable Unavailable Ella Matias PA-C Unavailable Santi Heller MD Unavailable [phone] Aashish Leone MD Unavailable Unavail able Tato Mallory MD Unavailable [phone] Chirag Taylor MD Primary Care Provider + Miguel Culver PA-C Unavailable Wesley Dugan MD Unavailable [phone] Encounter Details Date Type Department Care Team (Late st Contact Info) Description 07/02/2013 Office Visit-[facility] [address] [place] [id number] Milagros Manzano, LEAD PERSON COMPUTER INSTRUCTOR [address] [facility] [address] [place] [address] Social History Tobacco Use Types Packs/Day Years Used Date Smoking Tobacco: Every Day Cigarettes 0.8 53 Smokeless Tobacco: Never Alcohol Use Standard Drinks/Week Comments Yes 0 (1 standard drink = 0.6 oz pur e alcohol) social 2 drinks/week Sex and Gender Information Value Date Recorded Sex Assigned at Male 03/30/2018 7:28 AM BELT PICKER Gender Identity Male 03/30/2018 7:28 AM BELT PICKER Sexual Orientation Straight 02/18/2018 9: 07 AM BELT PICKER documented as of this encounter Progress Notes * Milagros Manzano, AZEEM - 07/08/2013 9:34 AM CDT Progress Note Created by: Milagros Manzano, BRIAN [id number] DATE: 07/02/2013 KANDY CANTRELL DATE OF : 1945 AGE: [age] years old Referring Physician: ANA MARAVILLA Referring Clinic: [facility] CURRENT DIAGNOSES 1. - Hyperlipidemia, 272.4 2. - CAD, 414.00 3. Aneurysm-Abdominal Aortic, 441.4 4. - Cardiomyopathy Ischemic, 414.8 5. - Shortness of Breath, 786.05 6. - Chest Pain-unspecified, 786.50 7. - CABG, V45.81 8. 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 albuterol sulfate 2.5 mg/0.5 mL solution for nebulization, Take as Directed 2. Aspirin Low Dose 81 mg tablet,delayed release (DR/EC), One tablet p.o. daily 3. Crestor 20 mg tablet, 1 p.o. daily 4. Cymbalta 60 mg capsule,delayed release(DR/EC), 1 p.o. daily 5. Flonase 50 mcg/actuation spray,suspension, Take as Directed 6. ipratropium-albuterol 0.5 mg-3 mg(2.5 mg base)/3 mL solution for nebinhl, Take as Directed 7. loratadine 10 mg tablet, 1 p.o. daily 8. losartan 25 mg tablet, One tablet p.o. dailyl 9. metoprolol succinate 25 mg tablet extended release 24 hr, One tablet p.o. daily 10. Neurontin 300 mg capsule, 1 three times daily 11. nitroglycerin 0.4 mg tablet, sublingual, 1 p.o. PRN as Directed 12. omeprazole 20 mg capsule,delayed release(DR/EC), 1 p.o. daily 13. oxycodone 5 mg capsule, 1 p.o. as Directed 14. Spiriva with HandiHaler 18 mcg capsule, w/inhalation device, 1 p.o. daily 15. Symbicort 160-4.5mcg/actuation HFA aerosol inhaler, Take as Directed 16. Vitamin D2 50,000 unit capsule, 1 p.o. every other week CHIEF COMPLAINTS Lightheadedness HISTORY OF PRESENT ILLNESS CHIEF COMPLAINT: Lightheadedness. Mr. Cantrell is a pleasant 67-year-old gentleman who has been seen by Dr. Garrido, as wellas Dr. Mallory for peripheral vascular care. He has a significant history again of peripheral vascular disease. He also has a history of coronary artery disease, having undergone what he tells me was a six-vessel coronary artery bypass graft surgery approximately 15 years ago. He has been treated previously at [facility] for peripheral arterial disease. He underwent endovascular repair of a 5.2 cm abdominal aortic aneurysm, as well as a right femoral endarterectomy with treatment of the common and superficial femoral arteries. Follow-up CT abdomen has shown a stable, type II endoleak with stable aneurysmal sac size and patent iliac runoff. His last visit with Dr. Garrido was in March. She placed him on a small dose of lisinoprilat that time. Follow-up echocardiogram showed an ejection fraction of 35-40% with distal anterior mid and distal anteroseptal and apical wall akinesis. A nuclear stress exam, also done in March, showed a large, fixed defect involving the anterior/anteroseptal and apical wall in the distribution of the LAD representing a nontransmural scar. There was a second, partially fixed defect involving the inferior wall with very mild reversibility, likely representing mild ischemia in the inferior wall. Ejection fraction on that study was noted at 43%. He has visited with Pulmonary Medicine since his last visit. He does wear chronic oxygen. He continues to smoke cigarettes. He has undergone a sleep study and is scheduled to undergo a repeat sleep study tomorrow night. Apparently, he has a history of a central sleep apnea and is being set up to use CPAP. Mr. Cantrell made the appointment today and complains of two episodes of lightheadedness. The first episode was with position change when he had gone from sitting to standing. He became very lightheaded and somewhat diaphoretic. He got down on one knee and rested for a minute. When he felt able, he went up to find his daughter who checked his blood pressure and found it quite elevated at 160/110. After sitting and relaxing for a number of minutes, his blood pressure came down to normal and hefelt fine. He had one additional episode. However, checking his blood pressure during this episode,he found that it was very low with a systolic pressure in the 90s. He denies any chest pain. No palp itations, no syncope, no increased shortness of breath. That last episode was about a month ago. Atthat point, he stopped taking the lisinopril and has no reoccurrence since that time and, in fact, has felt well. On exam, this is a well developed, well nourished male who appears his stated age. He is cooperative and appropriate. Vital signs are stable. Neurologically, he is intact. HEENT: Normocephalic, atraumatic, without tenderness or involuntary movements. Face appears symmetric. Visual reddy are full. EOMs intact, conjunctivae clear. Oral mucosa is pink and moist. Neck is supple with full range of motion. Trachea appears midline. There is no thyromegaly, JVD, or carotid bruit noted. Cardiac exam reveals S1 and S2, regular rate and rhythm with a grade 2/6 systolic murmur. Lungs: Chest expansion appears symmetric. Breath sounds are diminished to the bases. No wheeze or accessory muscle use. Abdomen is soft, nontender. Bowel sounds are present. Extremities are warm and dry without edema. For additional details regarding this clinic visit please see the note below. PAST HISTORY Past Medical Illnesses: Abdominal aortic aneurysm, depression, shingles, hyperlipidemia, chronic pancreatitis, hypertension, COPD, skin cancer, smokes, Past Cardiac Illnesses: coronary artery disease Surgeries/Procedures - General: appendectomy, cholecystectomy, Left rotator cuff repair, left carpal tunnel release, back surgery, head and neck surgery Cardiac and Vascular Surgeries: CABG X -11/1996, R Femoral endarterectomy, Infrarenal abdominal aortic aneurysm repair Cardiology Procedures-NonInvasive: CT abdomen and pelvis, MRA abdomen Feb 2013, echocardiogram Mar 2013, myocardial perfusion (Nuc) Mar 2013 Vascular Procedures-Noninvasive: RUBIN Mar 2012, Carotid Ultrasound Mar 2012 Pulmonary Testing: PFTs/DLCO Mar 2013 PMHx Echo Results: 03/24- Anterior, Septal and apical wall akinesis. Ascending Aorta mild dilated Left Ventricular Ejection Fraction: EF 35-40% by echo 03/24, EF 43% by nuc 03/24 Nuclear Results: 03/2013 large fixed defect involving the anterior anteroseptal and apical wall, mild ischemia in theinferior wall CT Results: Post aortic stent graft repair of AAA with Aneurysm sac 5.3 cm X 4.8 cm Feb 2013 LVEF of 43% documented via nuclear study on 04/09/2013 FAMILY HISTORY: CARDIAC RISK FACTORS SOCIAL HISTORY Alcohol Use - socially; Smoking - smokes cigarettes, less than 1/2 ppd and 53 years; Diet - regulardiet and caffeine use-3-4 per day; Lifestyle - , children and drives car; Exercise - exercise is limited due to physical disability and back; Occupation - disabled and since 1997; Residence -lives with, daughter and lives in [place] year round; REVIEW OF SYSTEMS GENERAL increased energy, no change in appetite INTEGUMENTARY hx skin cancer EYES readers, occasional eye problems EARS, NOSE, THROAT, MOUTH change in voice RESPIRATORY history of COPD, dyspnea with exertion, snoring, on Oxygen 3 ltr prn CARDIOVASCULAR palpitations, Flutter , hx of CABG - 1996, chest discomfort, pains here and there - per pt, pt was told he has a hole in heart , and hx of abdominal aortic aneuryrism, positive for edema of the ankles - has improved ABDOMINAL denies ulcer disease, hematochezia or melena., abdominal bloating, abdominal discomfort, GERD , Hernia , ulcers, positive for constipation and positive for diarrhea (watery) GENITOURINARY-MALE frequency, nocturia MUSCULOSKELETAL chronic back pain, neck pain, joint stiffness, both knees - all over, pain in right hand , left shoulder , left hand carpal tunnel surgery NEUROLOGICAL headaches, Minor - sometimes - per pt PSYCHIATRIC positive for anxiety, positive for stress, positive for depression ENDOCRINE denies any history of thyroid disease or diabetes mellitus. HEMATOLOGICAL/IMMUNOLOGIC denies any food allergies, seasonal allergies, bleeding disorders. PHYSICAL EXAMINATION VITAL SIGNS: Blood Pressure: 128/62Sitting, Right arm, regular cuff Pulse- 72.00/min. Weight- 235.30 lbs. Height- 71 BMI Measurement: 33 CONSTITUTIONAL cooperative, alert and oriented,well developed, well nourished, in no acute distress. SKIN warm and dry to touch, no apparent skin lesions, or masses noted. HEAD normocephalic, atraumatic EYES Pupils equal and round, conjunctivae and lids unremarkable, sclera white, no xanthalasma ENT no pallor or cyanosis, dentition good NECK carotids normal in upstroke, volume and contour.soft bilat bruits. No JVD CHEST poor air entry throughout. No adventitious sounds CARDIAC S1, S2 regular with 2/6 hsm apex. Early 1-2/6 esm base without radiation. No rub. No clear gallop. Distant heart sounds. ABDOMEN abdomen soft, bowel sounds normoactive, no masses, no hepatosplenomegaly, non- tender, no bruits EXTREMITIES & BACK no deformities, clubbing, cyanosis, erythema or edema observed. There are no spinal abnormalities noted. Normal muscle strength and tone. NEUROLOGICAL no gross motor deficits noted, affect appropriate, oriented to time, person and place. VASCULAR Normal PT and radial pulses bilat MEDICATIONS UPDATED/STARTED TODAY: Aspirin Low Dose 81 mg tablet,delayed release (DR/EC), One tablet p.o. daily, #30 (Thirty) Pgqmnoun48 mg capsule,delayed release(DR/EC), 1 p.o. daily, #0 (Zero) losartan 25 mg tablet, One tablet p.o. dailyl, #30 (Thirty) metoprolol succinate 25 mg tablet extended release 24 hr, One tablet p.o. daily, #30 (Thirty) Vitamin D2 50,000 unit capsule, 1 p.o. every other week, #0 (Zero) MEDICATIONS REFILLED/STOPPED TODAY: atenolol 25 mg tablet 1 p.o. daily #0 (Zero) Substitution, Cymbalta 20 mg capsule,delayed release(DR/EC) Dose/instruction UNKNOWN #0 (Zero) Dosage Increased, lisinopril 2.5 mg tablet one tablet daily#30 (Thirty) Patient Terminated, Vitamin D2 50 and 00 unit capsule 1 p.o. weekly #0 (Zero) Dosage De creased IMPRESSIONS/PLAN 1. Lightheadedness. At this time, I am not completely certain what caused Mr. Worthy two episodes of lightheadedness. This could be related to orthostatic changes going from a sitting to standing position; however, he did note very high blood pressure on one of these occasions. Subsequently, he stopped his lisinopril. He has not had any additional episodes in the past month. At this time, I recommended that he simply continue to monitor his symptoms. If this occurs again, or if it becomes more frequent, then certainly we may consider additional diagnostics. 2. Ischemic cardiomyopathy. Ejection fraction by echocardiogram 35-40%, by nuclear exam 43%. He is currently on atenolol and as previously noted, stopped his lisinopril. At this point, I would suggest he switch his atenolol to metoprolol succinate 25 mg daily. I am also going to start him on a low dose of losartan at 25 mg daily. I have asked him to come back and visit with me in two weeks. We will check a BMP, monitor his blood pressures and see how he is feeling at that time. 3. Coronary artery disease with history of coronary artery bypass graft surgery. Most recent stress exam showed a mild area of ischemia in the inferior wall, but otherwise was unremarkable. He has no symptoms of chest pain and no complaints of increased shortness of breath. I have recommended he continue his current medication regimen. He is notcurrently taking an aspirin due to a quite remote history of peptic ulcer disease. At this point, Ihave recommended he resume aspirin 81 mg daily. He is also going to continue his beta-trey and statin therapies. 4. History of peripheral arterial disease and abdominal aortic aneurysm with endovascular repair. Will defer further treatment to Dr. Mallory in the Vascular Clinic. Again, Mr. Cantrell will visit with me in two weeks. If he has any questions or concerns prior tothat time, I have encouraged him to contact the office. Thank you for allowing me to participate in the care of this patient. TODAYS ORDERS 1. BMP 2 weeks 2. Return Visit 2 weeks Milagros Manzano CNP documented in this encounter Plan of Treatment Not on file documented as of this encounter Visit Diagnoses Not on filedocumented in this encounter Additional Health Concerns Infection Onset Date Last Indicated Resolved Time Rule Out COVID-19 07/27/2019 07/27/2019 07/27/2019 10:15 PM CDT documented as of this encounter Care Teams Dry Cleaning Manager Relationship Specialty [place] [address] [place] [address] PCP - General Family Practice 03/02/13 12/21/14 [place] [address] [place] [address] PCP - General Family Practice 03/14/21 [place] [address] [place] [address] PCP - Assigned PCP 09/19/14 05/13/18 [place] [address] [address] PCP - General 03/15/20 03/13/[address] [id number] 02/10/13 03/08/15 Laurence Steele RN Clinic Chocolate Molder Nurse 03/09/15 [place] [address] [place] [address] Assigned PCP 09/19/14 02/23/22 Nela Sheth RN Personal Advocate & Liaison (PAL) Family Practice 10/13/19 03/14/20 Ella Matias, PA-C [address] [place] [address] Assigned Cancer Care Provider 01/01/20 03/18/21 Santi Heller MD [address] [facility] [address] [place] [address] Assigned Surgical Provider 01/01/2003/01 Aashish Leone MD Assigned Heart and Vascular Provider 01/01/20 05/07/20 [place] [address] [address] Assigned Musculoskeletal Provider 01/01/20 07/23/20 Miguel Culver PA-C [address] [place] [address] Assigned Heart and Vascular Provider 05/25/20 04/29/21 [place] [address] [place] [address] Assigned PCP 05/05/22 10/19/22 documented as of this encounter
--- OUTSIDE RECORDS SUMMARY | 2023-09-26 14:50 | XMS_ITS | Encounter Summary ---
Author Organization [facility] Address [address] [place] [address] Care Team Providers Care Welfare Centre Manager Name Role Phone [facility] Unavailable Lashonda Maravilla MD Primary Care Provide r Unavailable Wesley Dugan MD Primary Care Provider [phone] Laurence Steele RN Unavailable [phone] Wesley Dugan MD Unavailable [phone] Wesley Dugan MD Unavailable [phone] Nela Sheth RN Unavailable Unavailable Ella Matias PA-C Unavailable Santi Heller MD Unavailable [phone] Aashish Leone MD Unavailable Unavail able Tato Mallory MD Unavailable [phone] Chirag Taylor MD Primary Care Provider + iMguel Culver PA-C Unavailable [phone] Wesley Dugan MD Unavailable [phone] Encounter Details Date Type Department Care Team (Late st Contact Info) Description 04/13/2013 [facility] [address] [address] Lashonda Maravilla MD NO INFO AVAILABLE 07/12/2022 Social History Tobacco Use Types Packs/Day Years Used Date Smoking Tobacco: Every Day Cigarettes 1 53 Smokeless Tobacco: Never Alcohol Use Standard Drinks/Week Comments Yes 0 (1 standard drink = 0.6 oz pur e alcohol) social 2 drinks/week Sex and Gender Information Value Date Recorded Sex Assigned at Male 03/30/2018 7:28 AM PRODUCT INFO SPECIALIST Gender Identity Male 03/30/2018 7:28 AM PRODUCT INFO SPECIALIST Sexual Orientation Straight 02/18/2018 9: 07 AM PRODUCT INFO SPECIALIST documented as of this encounter Plan of Treatment Not on file documented as of this encounter Visit Diagnoses Not on filedocumented in this encounter Additional Health Concerns Infection Onset Date Last Indicated Resolved Time Rule Out COVID-19 07/27/2019 07/27/2019 07/27/2019 10:15 PM CDT documented as of this encounter Care Teams Welfare Centre Manager Relationship Specialty Start [place] [address] [place] [address] PCP - General Family Practice 03/02/13 12/21/14 [place] [address] [place] [address] PCP - General Family Practice 03/14/21 [place] [address] [place] [address] PCP - Assigned PCP 09/19/14 05/13/18 [place] [address] [address] PCP - General 03/15/20 03/13/21 [facility] [id number] [place] [address] 02/10/13 03/08/15 Laurence Steele RN Clinic Product Support Rep Nurse 03/09/15 [place] [address] [place] [address] Assigned PCP 09/19/14 02/23/22 Nela Sheth, RN Personal Advocate & Liaison (PAL) Family Practice 10/13/19 03/14/20 Ella Matias PA-C [address] [place] [address] Assigned Cancer Care Provider 01/01/20 03/18/21 Santi Heller MD [address] [facility] [address] [place] [address] Assigned Surgical Provider 01/01/2003/01 Aashish Leone MD Assigned Heart and Vascular Provider 01/01/20 05/07/20 [place] [address] [facility] [address] [place] [address] Assigned Musculoskeletal Provider 01/01/20 07/23/20 Miguel Culver PA-C [address] [facility] [place] [address] Assigned Heart and Vascular Provider 05/25/20 04/29/21 [place] [address] [place] [address] Assigned PCP 05/05/22 10/19/22 documented as of this encounter
--- OUTSIDE RECORDS SUMMARY | 2023-09-26 14:50 | XMS_ITS | Encounter Summary ---
Author Organization [facility] Address [address] [place] [address] Care Team Providers Care Bookbinding Machine Operator Name Role Phone Wesley Dugan MD Primary Care Provider Wesley Dugan MD Unavailable [phone] Nela Sheth RN Unavailable Unavailable Ella Matias PA-C Unavailable Santi Heller MD Unavailable [phone] Aashish Leone MD Unavailable Unavail able Tato Mallory MD Unavailable Chirag Taylor MD Primary Care Provider + Miguel Culver PA-C Unavailable [phone] Wesley Dugan MD Unavailable [phone] Reason for Visit * Reason Onset Date Comments Referral 08/18/2019 Pt being referre d for Dysuria/Benign prostatic hyperplasia with weak urinary stream, records and referral in [facility] Referral 08/18/2019 pt is calling ab out the referral, hoping to get a call today Encounter Details Date Type Department Care Team (Late st Contact Info) Description 08/18/2019 Telephone [facility] Prostate and Urologic Cancers [address] [facility] 4th [place] [address] Unknown Referral (Pt being referred for Dysuria/Benign prostatic hyperplasia with weak urinary stream, records and referral in [facility]); Referral (pt is calling about the referral, hoping to get a call today) Social History Tobacco Use Types Packs/Day Years Used Date Smoking Tobacco: Former Cigarettes 0 1958 - 2016 Smokeless Tobacco: Never Alcohol Use Standard Drinks/Week Comments Not Currently 0 (1 standard drink = 0.6 oz pur e alcohol) PHQ-2 Answer Date Recorded PHQ-2 Score 0 08/17/2019 Sex and Gender Information Value Date Recorded Sex Assigned at Male 03/30/2018 7:28 AM SOCIAL SERVICES ANALYST Gender Identity Male 03/30/2018 7:28 AM SOCIAL SERVICES ANALYST Sexual Orientation Straight 02/18/2018 9: 07 AM SOCIAL SERVICES ANALYST COVID-19 Exposure Response Date Recorded In the last month, have you been in contact with someone who was confirmed or suspected to have Coronavirus / COVID-19? No / Unsure 08/17/2019 8:20 AM CDT documented as of this encounter Miscellaneous Notes * Telephone Encounter - Lefty Felipe CMA - 08/21/2019 2:37 PM CDT Hi all, Patient states that he would like to have his ER follow up done at [facility] urology department not here at the [facility]-urology department. Please call patient to coordinate this appointment. Thanks, Lefty Felipe MA * Telephone Encounter - Jeannine Zavala - 08/21/2019 2:24 PM CDT [facility] Phone Message May a detailed message be left on voicemail: yes Reason for Call: Other: Pt is still waiting to hear from the clinic. Please call him back AN as he is having extreme burning and does not want to go the whole weekend without talking to someone. Action Taken: Message routed to: Other: [facility] Travel Screening: Not Applicable * Telephone Encounter - Danette Ye - 08/20/2019 9:17 AM CDT [facility] Phone Message May a detailed message be left on voicemail: yes Reason for Call: Other: pt would like to get in AN. He has burning pain. Please call to schedule. Action Taken: Message routed to: [facility] ([facility]): urology Travel Screening: Not Applicable * Telephone Encounter - Danilo Aracely - 08/18/2019 2:30 PM CDT [facility] Center Phone Message May a detailed message be left on voicemail: yes Reason for Call: Other: Pt being referred for Dysuria/Benign prostatic hyperplasia with weak urinary stream, records and referral in epic Action Taken: Message routed to: [facility] ([facility]): urology. Travel Screening: Not Applicable documented in this encounter Plan of Treatment Not on file documented as of this encounter Visit Diagnoses Not on filedocumented in this encounter Additional Health Concerns Assessment Noted Time PHQ-9 Depression Total Score: 8 08/15/19 7:03 AM CDT documented as of this encounter Care Teams Bookbinding Machine Operator Relationship Specialty Start [place] [address] [place], [place] [id number] PCP - General Family Practice 03/14/21 [place] [address] [address] PCP - General 03/15/20 03/13/21 [place] [address] [place] [address] Assigned PCP 09/19/14 02/23/22 Nela Sheth, JARON Personal Advocate & Liaison (PAL) Family Practice 10/13/19 03/14/20 Ella Matias, PA-C [address] [place] [address] Assigned Cancer Care Provider 01/01/20 03/18/21 Santi Heller MD [address] [facility] 500 [place] [address] Assigned Surgical Provider 01/01/2003/01 Aashish Leone MD Assigned Heart and Vascular Provider 01/01/20 05/07/20 [place] [address] [facility] [address] [place] [address] Assigned Musculoskeletal Provider 01/01/20 07/23/20 Miguel Culver PA-C [address] [place] [address] Assigned Heart and Vascular Provider 05/25/20 04/29/21 [place] [address] [place] [address] Assigned PCP 05/05/22 10/19/22 documented as of this encounter
--- OUTSIDE RECORDS SUMMARY | 2023-09-26 14:50 | XMS_ITS | Encounter Summary ---
Author Organization [facility] Address [address] [place] [address] Care Team Providers Care Switchgear Repairer Name Role Phone [facility] Unavailable Ana Maravilla MD Primary Care Provide r Unavailable Wesley Dugan MD Primary Care Provider [phone] Laurence Steele RN Unavailable Wesley Dugan MD Unavailable [phone] Wesley Dugan MD Unavailable [phone] Nela Sheth RN Unavailable Unavailable Ella Matias PA-C Unavailable Santi Heller MD Unavailable [phone] Aashish Leone MD Unavailable Unavail able Tato Mallory MD Unavailable [phone] Chirag Taylor MD Primary Care Provider + Miguel Culver PA-C Unavailable [phone] Wesley Dugan MD Unavailable [phone] Encounter Details Date Type Department Care Team (Late st Contact Info) Description 07/16/2013 Office Visit-[facility] [address] [place] [phone] Milagros Manzano, COMPUTER NETWORKING INSTRUCTOR ADJUNCT TRUST ACCOUNTS SUPERVISOR [address] [facility] [address] [place] [address] Social History Tobacco Use Types Packs/Day Years Used Date Smoking Tobacco: Every Day Cigarettes 0.8 53 Smokeless Tobacco: Never Alcohol Use Standard Drinks/Week Comments Yes 0 (1 standard drink = 0.6 oz pur e alcohol) social 2 drinks/week Sex and Gender Information Value Date Recorded Sex Assigned at Male 03/30/2018 7:28 AM TYPE INSPECTOR Gender Identity Male 03/30/2018 7:28 AM TYPE INSPECTOR Sexual Orientation Straight 02/18/2018 9: 07 AM TYPE INSPECTOR documented as of this encounter Progress Notes * Milagros Manzano, AZEEM - 07/20/2013 10:50 AM CDT Progress Note Created by: Milagros Manzano, BRIAN [id number] DATE: 07/16/2013 KANDY CANTRELL DATE OF : 1945 AGE: [age] years old Referring Physician: ANA MARAVILLA Referring Clinic: [facility] CURRENT DIAGNOSES 1. - Hyperlipidemia, 272.4 2. - CAD, 414.00 3. - Shortness of Breath, 786.05 4. - Cardiomyopathy Ischemic, 414.8 5. - Chest Pain-unspecified, 786.50 6. - CABG, V45.81 7. 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 Aneurysm-Abdominal Aortic, 441.4 ALLERGIES isosorbide, Headache MEDICATIONS (prior to changes made today) 1. albuterol sulfate 2.5 mg/0.5 mL solution for nebulization, Take as Directed 2. Aspirin Low Dose 81 mg tablet,delayed release (DR/EC), One tablet p.o. daily 3. azithromycin 250 mg tablet, 2 p.o. daily 4. Crestor 40 mg tablet, 1 p.o. daily 5. Flonase 50 mcg/actuation spray,suspension, Take as Directed 6. ipratropium-albuterol 0.5 mg-3 mg(2.5 mg base)/3 mL solution for nebinhl, Take as Directed 7. levofloxacin 500 mg tablet, 1 p.o. daily 8. loratadine 10 mg tablet, 1 p.o. daily 9. losartan 25 mg tablet, One tablet p.o. dailyl 10. metoprolol succinate 25 mg tablet extended release 24 hr, One tablet p.o. daily 11. Neurontin 300 mg capsule, 1 three times daily 12. nicotine 21-14-7 mg/24 hr patch, TD daily, sequential, One patch daily as directed 13. nitroglycerin 0.4 mg tablet, sublingual, 1 p.o. PRN as Directed 14. omeprazole 20 mg capsule,delayed release(DR/EC), 1 p.o. daily 15. oxycodone 5 mg capsule, 1 p.o. as Directed 16. prednisone 20 mg tablet, 1 p.o. daily 17. Spiriva with HandiHaler 18 mcg capsule, w/inhalation device, 1 p.o. daily 18. spironolactone 25mg tablet, 1/2 tablet p.o. daily 19. Symbicort 160-4.5 mcg/actuation HFA aerosol inhaler, Take as Directed 20. Vitamin D2 50,000 unit capsule, 1 p.o. every other week CHIEF COMPLAINTS F/u med changes CHIEF COMPLAINT: Follow up cardiomyopathy. HISTORY OF PRESENT ILLNESS: Mr. Cantrell is a pleasant 67-year-old patient who has been seen previously by Dr. Garrido, as well as by Dr. Mallory, for his history of peripheral vascular disease.He has a history of again of peripheral vascular disease. He also has a history of coronary artery disease, having undergone what he tells me what a six-vessel coronary artery bypass graft surgery approximately 15 years ago. He was treated previously at [facility] for peripheral arterial disease. He underwent endovascular repair of a 5.2 cm abdominal aortic aneurysm, as well as a right femoral endarterectomy with treatment of the common and superficial femoral arteries. Followup CT abdomen h as shown a stable type 2 endoleak with stable aneurysmal sac size and patent iliac runoff. His last visit with Dr. Garrido was in March. She placed him on a small dose of lisinoprilat that time. Followup echocardiogram showed an ejection fraction of 35-40%, with distal anterior, mid and distal anteroseptal and apical wall akinesis. A nuclear stress exam was also done in Marchshowing a large fixed defect involving the anterior/anteroseptal and apical wall in the distribution of the LAD, representing a nontransmural scar. There was a second partially fixed defect involvingthe inferior wall with very mild reversibility, likely representing mild ischemia in the inferior wall. Ejection fraction on that study was noted at 43%. He visits regularly with Pulmonary Medicine for his history of COPD and sleep apnea. He wears chronic oxygen. Unfortunately, he continues to smoke cigarettes, though he expresses a strong desire to quit. He tells me he needs help in doing so and is interested in pursuing nicotine patches. He has central sleep apnea and he uses a CPAP at night. When I saw him last in the clinic it was July 02. He had a couple of complaints of lightheadednessbut beyond that was doing okay. He did not feel that he was tolerating the lisinopril and felt thatit was causing spikes in his blood pressure. That being said, given his cardiomyopathy we stopped the lisinopril and placed him on losartan. We also stopped his atenolol and put him on metoprolol succinate. He returns to clinic today in followup. Overall, he is doing relatively well. Again, he is very frustrated in his inability to quit smoking on his own and expresses a great desire to quit. Laboratories today showed a sodium of 141, potassium 4.1, chloride 102, bicarb 28, BUN 13, creatinine 0.4. He is noticing some lower extremity edema. Breathing has not really changed. There is no orthopnea or paroxysmal nocturnal dyspnea. He denies any specific chest discomfort. On exam this is a well developed, well nourished male who appears his stated age. He is cooperativeand appropriate. Vital signs are stable. Neurologically he is intact. HEENT: Normocephalic, atraumatic, without tenderness or involuntary movements. Face appears symmetric. Visual reddy are full, EOMs intact, conjunctivae clear. Oral mucosa is pink and moist. Neck is supple with full range of motion. Trachea appears midline. No thyromegaly, JVD, or carotid bruit. Cardiac exam reveals S1 and S2, regular rate and rhythm. Lungs: Chest expansion appears symmetric. Breath sounds are clear to auscultation bilaterally. No wheeze or accessory muscle use. Abdomen is soft, nontender. Bowel sounds are p resent. Extremities are warm and dry with trace pretibial edema. For additional details regarding this visit, please see the note below. PAST HISTORY [...] Residence -lives with, daughter and lives in [place] year round; REVIEW OF SYSTEMS GENERAL negative for energy, fatigue, no change in appetite, no change in weight INTEGUMENTARY hx skin cancer, bruising EYES readers, occasional eye problems EARS, NOSE, THROAT, MOUTH change in voice, hoarseness RESPIRATORY history of COPD, dyspnea with exertion, snoring, on Oxygen 4-5 ltr prn, c-pap CARDIOVASCULAR palpitations, Flutter , hx of CABG - 1996, chest discomfort, pains here and there - per pt, pt was told he has a hole in heart , and hx of abdominal aortic aneuryrism, positive for edema of the ankles ABDOMINAL abdominal bloating, abdominal discomfort, GERD , Hernia [...] of thyroid disease or diabetes mellitus. HEMATOLOGICAL/IMMUNOLOGIC easy bruising PHYSICAL EXAMINATION VITAL SIGNS: Blood Pressure: 128/70Sitting, Right arm, large cuff Pulse- 79.00/min. Weight- 235.10 lbs. Height- 71.0 BMI Measurement: 33 CONSTITUTIONAL cooperative, alert and [...] and radial pulses bilat MEDICATIONS UPDATED/STARTED TODAY: azithromycin 250 mg tablet, 2 p.o. daily, #0 (Zero) Crestor 40 mg tablet, 1 p.o. daily, #0 (Zero) levofloxacin 500 mg tablet, 1 p.o. daily, #0 (Zero) nicotine 21-14-7 mg/24 hr patch, TD daily, sequential, One patch daily as directed, #30 (Thirty) prednisone 20 mg tablet, 1 p.o. daily, #0 (Zero) spironolactone 25 mg tablet, 1/2 tablet p.o. daily, #90 (Ninety) MEDICATIONS REFILLED/STOPPED TODAY: Crestor 20 mg tablet 1 p.o. daily #0 (Zero) Dosage Increased, Cymbalta 60 mg capsule and elayed release(DR/EC) 1 p.o. daily #0 (Zero) Patient Terminated IMPRESSION/PLAN: 1. Ischemic cardiomyopathy with history of coronary artery bypass graft surgery and echocardiogram indicating an ejection fraction of 35-40%. Previously we placed him on metoprolol succinate which heis tolerating well. He is also tolerating losartan in place of the lisinopril. At this point I would like to place him on a small dose of spironolactone at 12.5 mg q.d. I am hopeful this will help torelieve some of his lower extremity edema. In addition to this, I did talk to him about restrictingthe sodium in his diet. He will return to visit with me in two months. We will check a BMP at that time. 2. History of coronary artery disease and bypass graft surgery. Most recent stress exam showeda mild area of ischemia in the inferior wall but was otherwise unremarkable. He has no symptoms of chest pain or anginal type equivalents. The last I visited with him I did suggest he resume 81 mg q.d. dose of aspirin. He will also continue his beta-trey and statin therapy. 3. Tobacco abuse. I did send in today a prescription for Mr. Cantrell for a nicotine patch utilizing the 21 mg, 14 mg, 7 mg stepdown approach. He tells me if his insurance does not assist in covering the cost he will not be able to afford it, but he is going to try. 4. Mr. Cantrell is going to visit with me again intwo weeks. We will review his BMP at that time and see how he is doing on his spironolactone. If hehas questions or concerns prior to the next visit I have encouraged him to contact the [...] documented as of this encounter Care Teams Switchgear Repairer Relationship Specialty [place] [address] [place] [address] PCP - General Family Practice 03/02/13 12/21/14 [place] [address] [place] [address] PCP - General Family Practice 03/14/21 [place] [address] [place] [address] PCP - Assigned PCP 09/19/14 05/13/18 [place] [address] [address] PCP - General 03/15/20 03/13/[address] [address] 02/10/13 03/08/15 Laurence Steele RN Clinic Loan Assistant Nurse 03/09/15 [place] [address] [place] [address] Assigned PCP 09/19/14 02/23/22 Nela Sheth RN Personal Advocate & Liaison (PAL) Family Practice 10/13/19 03/14/20 Ella Matias PA-C [address] [place] [address] Assigned Cancer Care Provider 01/01/20 03/18/21 Santi Heller MD [address] [facility] [address] [place] [address] Assigned Surgical Provider 01/01/2003/01 Aashish Leone MD Assigned Heart and Vascular Provider 01/01/20 05/07/20 [place] [address] [address] [facility] [address] [place] [address] Assigned Musculoskeletal Provider 01/01/20 07/23/20 Miguel Culver PA-C [address] [place] [address] Assigned Heart and Vascular Provider 05/25/20 04/29/21 [place] [address] [place] [address] Assigned PCP 05/05/22 10/19/22 documented as of this encounter
--- OUTSIDE RECORDS SUMMARY | 2023-09-26 14:50 | XMS_ITS | Encounter Summary ---
Author Organization [facility] Address [address] [place] [address] Care Team Providers Care Jig Inspector Name Role Phone Wesley Dugan MD Primary Care Provider [phone] Wesley Dugan MD Unavailable [phone] Nela Sheth RN Unavailable Unavailable Ella Matias PA-C Unavailable Santi Heller MD Unavailable Aashish Loene MD Unavailable Unavail able Tato Mallory MD Unavailable Chirag Taylor MD Primary Care Provider + Miguel Culver PA-C Unavailable [phone] Wesley Dugan MD Unavailable [phone] Encounter Details Date Type Department Care Team (Late st Contact Info) Description 07/16/[address] [place] [address] Duran Qureshi Social History Tobacco Use Types Packs/Day Years Used Date Smoking Tobacco: Former Cigarettes 0 1958 - 2016 Smokeless Tobacco: Never Alcohol Use Standard Drinks/Week Comments No 0 (1 standard drink = 0.6 oz pur e alcohol) PHQ-2 Answer Date Recorded PHQ-2 Score 4 03/18/2018 Sex and Gender Information Value Date Recorded Sex Assigned at Male 03/30/2018 7:28 AM SOLUTION SALES SENIOR EXECUTIVE Gender Identity Male 03/30/2018 7:28 AM SOLUTION SALES SENIOR EXECUTIVE Sexual Orientation Straight 02/18/2018 9: 07 AM SOLUTION SALES SENIOR EXECUTIVE documented as of this encounter Plan of Treatment Not on file documented as of this encounter Visit Diagnoses Not on filedocumented in this encounter Additional Health Concerns Infection Onset Date Last Indicated Resolved Time Rule Out COVID-19 07/27/2019 07/27/2019 07/27/2019 10:15 PM CDT Assessment Noted Time PHQ-9 Depression Total Score: 12 019 11:34 AM CDT documented as of this encounter Care Teams Jig Inspector Relationship Specialty Start [place] [address] [place] [address] PCP - General Family Practice 03/14/21 [place] [address] [address] PCP - General 03/15/20 03/13/21 [place] [address] [place] [address] Assigned PCP 09/19/14 02/23/22 Nela Sheth RN Personal Advocate & Liaison (PAL) Family Practice 10/13/19 03/14/20 Ella Matias, PALizzethC [address] [place] [address] Assigned Cancer Care Provider 01/01/20 03/18/21 Santi Heller MD [address] [facility] [address] [place] [address] Assigned Surgical Provider 01/01/2003/01 Aashish Leone MD Assigned Heart and Vascular Provider 01/01/20 05/07/20 [place] [address] [facility] [address] [place] [address] Assigned Musculoskeletal Provider 01/01/20 07/23/20 Miguel Culver PA-C [address] [place] [address] Assigned Heart and Vascular Provider 05/25/20 04/29/21 [place] [address] [place] [address] Assigned PCP 05/05/22 10/19/22 documented as of this encounter
--- OUTSIDE RECORDS SUMMARY | 2023-09-26 14:50 | XMS_ITS | Encounter Summary ---
Author Organization [facility] Address [address] [place] [address]. [place] [address] Care Team Providers Care Boat Camp Operator Name Role Phone [facility] Unavailable Lashonda Maravilla MD Primary Care Provide r Unavailable Wesley uDgan MD Primary Care Provider [phone] Laurence Steele RN Unavailable Wesley Dugan MD Unavailable [phone] Wesley Dugan MD Unavailable [phone] Nela Sheth RN Unavailable Unavailable Ella Matias PA-C Unavailable Santi Heller MD Unavailable [phone] Aashish Leone MD Unavailable Unavail able Tato Mallory MD Unavailable [phone] Chirag Taylor MD Primary Care Provider + Miguel Culver PA-C Unavailable [phone] Wesley Dugan MD Unavailable [phone] Encounter Details Date Type Department Care Team (Late st Contact Info) Description 04/28/2013 Office Visit-[facility] [place] [address] [facility] [address] [place] [phone] Leopoldo Mallory MD [address] [facility] [address] [place] [address] Social History Tobacco Use Types Packs/Day Years Used Date Smoking Tobacco: Every Day Cigarettes 1 53 Smokeless Tobacco: Never Alcohol Use Standard Drinks/Week Comments Yes 0 (1 standard drink = 0.6 oz pur e alcohol) social 2 drinks/week Sex and Gender Information Value Date Recorded Sex Assigned at Male 03/30/2018 7:28 AM GAS LINE SERVICER Gender Identity Male 03/30/2018 7:28 AM GAS LINE SERVICER Sexual Orientation Straight 02/18/2018 9: 07 AM GAS LINE SERVICER documented as of this encounter Progress Notes * Leopoldo Mallory MD - 04/28/2013 10:17 AM CST Progress Note Created by: Leopoldo Mallory MD DATE: 04/23/2013 KANDY CANTRELL DATE OF : 1945 AGE: [age] years old Referring Physician: LEOPOLDO GARDUNO Referring Clinic: [facility] CURRENT DIAGNOSES 1. - Hyperlipidemia, 272.4 2. - CAD, 414.00 3. - Shortness of Breath, 786.05 4. - Chest Pain-unspecified, 786.50 5. - CABG, V45.81 6. 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 Aneurysm-Abdominal Aortic, 441.4 ALLERGIES isosorbide, Headache MEDICATIONS (prior to changes made today) 1. albuterol sulfate 2.5 mg/0.5 mL solution for nebulization, Take as Directed 2. atenolol 25 mg tablet, 1 p.o. daily 3. Crestor 20 mg tablet, 1 p.o. daily 4. Cymbalta 20 mg capsule,delayed release(DR/EC), Dose/instruction UNKNOWN 5. Flonase 50 mcg/actuation spray,suspension, Take as Directed 6. ipratropium-albuterol 0.5 mg-3 mg(2.5 mg base)/3 mL solution for nebinhl, Take as Directed 7. lisinopril 2.5 mg tablet, one tablet daily 8. loratadine 10 mg tablet, 1 p.o. daily 9. Neurontin 300 mg capsule, 1 three times daily 10. nitroglycerin 0.4 mg tablet, sublingual, 1 p.o. PRN as Directed 11. omeprazole 20 mg capsule,delayed release(DR/EC), 1 p.o. daily 12. oxycodone 5 mg capsule, 1 p.o. as Directed 13. Spiriva with HandiHaler 18 mcg capsule, w/inhalation device, 1 p.o. daily 14. Symbicort 160-4.5mcg/actuation HFA aerosol inhaler, Take as Directed 15. Vitamin D2 50,000 unit capsule, 1 p.o. weekly CHIEF COMPLAINTS AAA, PAD HISTORY OF PRESENT ILLNESS Kandy is a very pleasant 67-year-old who sees Dr. Garrido for cardiovascular care. He has asignificant history of peripheral vascular disease and [facility]. He most recently saw Dr. Garrido on 04-07-13 for a preoperative evaluation prior to hernia surgery. He had a transthoracic echocardiogram done on 04-09-13 as well as a nuclear stress test on the. The nuclear stress test was consistent with his past known anterior infarction. There wasvery mild inferior ischemia as well. EF was calculated at 43%. On the transthoracic echocardiogram, the EF was estimated at 35% to 40% with similar regional wall motion abnormalities. No significant valvular heart disease was noted. The patient underwent his abdominal hernia repair uneventfully on 04-16-13. He states that all of hisabdominal and chest discomfort went away after his hernia repair. His peripheral arterial disease history is as follows: He has had been treated previously at [facility]. I have reviewed his records. He had been diagnosed with severe right femoral artery disease on 03-13-12 via an ultrasound. He then underwent further evaluation and eventually underwent endovascular repair of a 5.2 cm abdominal aortic aneurysm as well as a right femoral endarterectomy with treatment of the common and superficial femoral arteries. He had a follow up RUBIN, which showed a normal RUBIN on the right with triphasic waveforms. This was done on 11-26-12. RUBIN on the right was 1.08 and0.[address] of the abdomen for follow up showed a stable Type 2 endoleak with a stableaneurysm sac size and patent iliac runoff. The patient has some exertional leg discomfort that stops him after 1/2 block. He has a difficult time this out from his neurogenic claudication from back pain. He has excellent pulses bilaterally. He has tried to cutback on his cigarette smoking. He has not tolerated isosorbide in the past secondary to severe headaches. He has overall good control of his blood pressure. PAST HISTORY Past Medical Illnesses: Abdominal aortic [...] via nuclear study on 04/09/2013 FAMILY HISTORY: SOCIAL HISTORY Alcohol Use - socially; Smoking - smokes cigarettes, less than 1 ppd and 53 years; Diet - regular diet and caffeine use-3-4 per day; Lifestyle - , children and drives car; Exercise - exerciseis limited due to physical disability and back; Occupation - disabled and since 1997; Residence - lives with, daughter and lives in [place] year round; REVIEW OF SYSTEMS GENERAL increased energy, no change in appetite INTEGUMENTARY hx skin cancer EYES readers, occasional eye problems EARS, NOSE, THROAT, MOUTH change in voice RESPIRATORY history of COPD, cough, dyspnea with exertion, snoring, on Oxygen 3 [...] disorders. PHYSICAL EXAMINATION VITAL SIGNS: Blood Pressure: 128/74Sitting, Left arm, regular cuff Pulse- 68.00/min. Weight- 235.40 lbs. Height- 71 BMI Measurement: 33 CONSTITUTIONAL [...] and radial pulses bilat MEDICATIONS UPDATED/STARTED TODAY: IMPRESSIONS/PLAN 1. Peripheral arterial disease, status post endovascular aortoiliac stent graft + right endarterectomy with normalization of his RUBIN. He currently has stable symptoms. We will consider rechecking with a CT one year from his last one. He had a Type 2 endoleak, which is common. We will check for resolution and stability of the sac size in one to two years. We will see him back in approximately ninemonths to revisit with him. I have urged him to continue nicotine cessation attempts. 2. Coronary artery disease. We reviewed his recent echocardiogram and nuclear stress test. The patient had resolution of his chest discomfort after his hernia surgery. TODAYS ORDERS 1. Return Visit 9 months Leopoldo Mallory MD documented in this encounter Plan of Treatment Not on file documented as of this encounter Visit Diagnoses Not on filedocumented in this encounter Additional Health Concerns Infection Onset Date Last Indicated Resolved Time Rule Out COVID-19 07/27/2019 07/27/2019 07/27/2019 10:15 PM CDT documented as of this encounter Care Teams Boat Camp Operator Relationship Specialty Start [place] [address] [place] [address] PCP - General Family Practice 03/02/13 12/21/14 Wesley Dug[place] [address] [place] [address] PCP - General Family Practice 03/14/21 [place] [address] [place] [address] PCP - Assigned PCP 09/19/14 05/13/18 [place] [address] [address] PCP - General 03/15/20 03/13/21 [facility] [address] [place] [address] 02/10/13 03/08/15 Laurence Steele, J[facility] Clinic Concrete Float Maker Nurse 03/09/15 Wesley Dugan MD [id number] [place] [address] Assigned PCP 09/19/14 02/23/22 Nela Sheth RN Personal Advocate & Liaison (PAL) Family Practice 10/13/19 03/14/20 Ella Matias, PA-C [address] [place] [address] Assigned Cancer Care Provider 01/01/20 03/18/21 Santi Heller MD [address] [place] [address] [place] [address] Assigned Surgical Provider 01/01/2003/01 Aashish Leone MD Assigned Heart and Vascular Provider 01/01/20 05/07/20 [place] [address] [facility] [address] [place], [place] [address] Assigned Musculoskeletal Provider 01/01/20 07/23/20 Miguel Culver PA-C [address] [place] [address] Assigned Heart and Vascular Provider 05/25/20 04/29/21 [place] [address] [place], [place] [address] Assigned PCP 05/05/22 10/19/22 documented as of this encounter
--- OUTSIDE RECORDS SUMMARY | 2023-09-26 14:50 | XMS_ITS | Encounter Summary ---
Author Organization [facility] Address [address] [place] [address]. [place] [address] Care Team Providers Care Retail Service Technician Name Role Phone Wesley Dugan MD Primary Care Provider [phone] Laurence Steele RN Unavailable [phone] Wesley Dugan MD Unavailable [phone] Wesley Dugan MD Unavailable [phone] Nela Sheth RN Unavailable Unavailable Ella Matias PA-C Unavailable Santi Heller MD Unavailable Aashish Leone MD Unavailable Unavail able Tato Mallory MD Unavailable Chirag Taylor MD Primary Care Provider + Miguel Culver PA-C Unavailable Wesley Dugan MD Unavailable [phone] Reason for Visit * Reason Onset Date Comments Medication Question 03/23/2015 Probiotic Encounter Details Date Type Department Care Team (Late st Contact Info) Description 03/23/2015 MyC Medical Advice [facility] [id number] [place] [address] [phone] Wesley Dugan MD [address] [place] [address] Medication Question (Probiotic) Social History Tobacco Use Types Packs/Day Years Used Date Smoking Tobacco: Every Day Cigarettes 1 65 Started: 1957 Smokeless Tobacco: Never Comments:Trying to quit cut down to 1/2 pack daily Alcohol Use Standard Drinks/Week Comments Yes 0 (1 standard drink = 0.6 oz pur e alcohol) 1+ drink per day Sex and Gender Information Value Date Recorded Sex Assigned at Male 03/30/2018 7:28 AM SR. LOGISTICS ANALYST Gender Identity Male 03/30/2018 7:28 AM SR. LOGISTICS ANALYST Sexual Orientation Straight 02/18/2018 9: 07 AM SR. LOGISTICS ANALYST documented as of this encounter Miscellaneous Notes * Telephone Encounter - Wesley Dugan MD - 03/23/2015 4:46 PM CST culturelle is fine Still having diarrhea? Wesley Dugan . LOGISTICS ANALYST * Telephone Encounter - Karo Saini RN - 03/23/2015 9:[address] Dugan-see [employer] Messaging message below. Please advise. Karo Saini RN . LOGISTICS ANALYST documented in this encounter Plan of Treatment Not on file documented as of this encounter Visit Diagnoses Not on filedocumented in this encounter Additional Health Concerns Infection Onset Date Last Indicated Resolved Time Rule Out COVID-19 07/27/2019 07/27/2019 07/27/2019 10:15 PM CDT Assessment Noted Time PHQ-9 Depression Total Score: 15 015 7:16 AM CDT documented as of this encounter Care Teams Retail Service Technician Relationship Specialty [place] [address] [place] [address] PCP - General Family Practice 03/14/21 [place] [address] [place], [place] [id number] PCP - Assigned PCP 09/19/14 05/13/18 [place] [address] [facility] [address] [place], [place] [address] PCP - General 03/15/20 03/13/21 Laurence Steele, JARON Clinic Corporate Manager Nurse 03/09/15 [place] [address] [place], [place] [id number] Assigned PCP 09/19/14 02/23/22 Nela Sheth RN Personal Advocate & Liaison (PAL) Family Practice 10/13/19 03/14/20 Ella Matias PA-C 9 [place] [address] Assigned Cancer Care Provider 01/01/20 03/18/21 Santi Heller MD 6[address] [facility] [address] [address] Assigned Surgical Provider 01/01/2003/01 Aashish Leone MD Assigned Heart and Vascular Provider 01/01/20 05/07/20 [place] [address] 572927 Assigned Musculoskeletal Provider 01/01/20 07/23/20 Miguel Culver PA-C 6405 [facility] [place], [place] [address] Assigned Heart and Vascular Provider 05/25/20 04/29/21 [place] [address] [place] [address] Assigned PCP 05/05/22 10/19/22 documented as of this encounter
--- OUTSIDE RECORDS SUMMARY | 2023-09-26 14:50 | XMS_ITS | Encounter Summary ---
Author Organization [place] Address [address] [place] [address] Care Team Providers Care Airplane Electrician Name Role Phone [facility] Unavailable Lashonda Maravilla MD Primary Care Provide r Unavailable Wesley Dugan MD Primary Care Provider [phone] Laurence Steele RN Unavailable Wesley Dugan MD Unavailable [phone] Wesley Dugan MD Unavailable [phone] Nela Sheth RN Unavailable Unavailable Ella Matias PA-C Unavailable Santi Heller MD Unavailable Aashish Leone MD Unavailable Unavail able Tato Mallory MD Unavailable [phone] Chirag Taylor MD Primary Care Provider + Miguel Culver PA-C Unavailable Wesley Dugan MD Unavailable [phone] Encounter Details Date Type Department Care Team (Late st Contact Info) Description 04/07/2013 Office [facility] [address] [place] [phone] Milagros Garrido MD HEART [facility] [address] [place] [id number] Social History Tobacco Use Types Packs/Day Years Used Date Smoking Tobacco: Every Day Cigarettes 1 53 Smokeless Tobacco: Never Alcohol Use Standard Drinks/Week Comments Yes 0 (1 standard drink = 0.6 oz pur e alcohol) social 2 drinks/week Sex and Gender Information Value Date Recorded Sex Assigned at Male 03/30/2018 7:28 AM SUPERVISOR MAJOR APPLIANCE ASSEMBLY Gender Identity Male 03/30/2018 7:28 AM SUPERVISOR MAJOR APPLIANCE ASSEMBLY Sexual Orientation Straight 02/18/2018 9: 07 AM SUPERVISOR MAJOR APPLIANCE ASSEMBLY documented as of this encounter Progress Notes * Milagros Garrido MD - 04/08/2013 8:34 AM CST Progress Note Created by: Milagros Garrido M.D. [id number] DATE: 04/07/2013 KANDY CANTRELL DATE OF : 1945 AGE: [age] years old Referring Physician: SARMAD AGRDUNO Referring Clinic: [facility] CURRENT DIAGNOSES 1. - Hyperlipidemia, 272.4 2. - CAD, 414.00 3. - Shortness of Breath, 786.05 4. - Chest Pain-unspecified, 786.50 5. - CABG, V45.81 ALLERGIES NKDA MEDICATIONS (prior to changes made today) 1. [...] unit capsule, 1 p.o. weekly CHIEF COMPLAINTS HISTORY OF PRESENT ILLNESS CHIEF COMPLAINT: New patient evaluation for establishment of care. Mr. Cantrell is a pleasant 67-year-old gentleman with an unfortunate longstanding tobacco abuse history and horrible coronary and vascular disease. He had a six vessel bypass in 1996 in [place]. According to the patient, he had a stent repair of a AAA one year ago with repair of the arteries in his groin area. This was done at [facility]. Review of the available records suggests that he did have a right femoral endarterectomy with a pericardial patch angioplasty and infrarenal abdominal aortic aneurysm repair with an gkrus-wl-vavno stent graft and a two piece graft with a femoral cutdown in April 2012. He states that he still has claudicatory symptoms. He has also had back surgery with neurologic impingement causing claudication as well. He states that he gets minor chest pain and has taken a couple of nitroglycerin tablets once every four to five months since the time of his last stress test, which showed no evidence of ischemia in March 2012. His last chest discomfort was a month ago with on set at rest as they always are. He gets no chest discomfort with exertion, but does get substantialshortness of breath with exertion and cannot go up and down stairs at all. He states that it has been getting worse very gradually over the years. Unfortunately, he continues to smoke. He does state that he is trying very hard to stop. He has occasional palpitations that are felt as a skipped heartbeat. He has no prolonged palpitations. He has no clear lightheadedness, presyncope, or syncope. He has no substantial pedal edema or orthopnea. He states that he is having a hernia fixed in his naval on . PAST HISTORY Past Medical Illnesses: Abdominal aortic [...] CT abdomen and pelvis, MRA abdomen Feb 2013 Vascular Procedures-Noninvasive: RUBIN Mar 2012, Carotid Ultrasound Mar 2012 [address] Results: Post aortic stent graft repair of AAA with Aneurysm sac 5.3 cm X 4.8 cm Feb 2013 LVEF not documented FAMILY HISTORY: CARDIAC RISK FACTORS SOCIAL HISTORY Alcohol Use - socially; Smoking - smokes cigarettes, less than 1 ppd and 53 years; Diet - regular diet and caffeine use-3-4 per day; Lifestyle - , children and drives car; Exercise - exerciseis limited due to physical disability and back; Occupation - disabled and since 1997; Residence - lives with, daughter and lives in [place] year round; REVIEW OF SYSTEMS GENERAL weight gain of approximately 30 lbs, in past year, negative for energy, no change in appetite INTEGUMENTARY hx skin cancer EYES readers, occasional eye problems EARS, NOSE, THROAT, MOUTH change in voice RESPIRATORY history of COPD, cough, dyspnea, snoring, on Oxygen 3 ltr prn CARDIOVASCULAR palpitations, Flutter , hx of CABG - 1996, chest discomfort, pains here and there - per pt, pt was told he has a whole in heart , and hx of aeortic annyerism, positive for edema of the ankles ABDOMINAL denies ulcer disease, hematochezia or melena., [...] disorders. PHYSICAL EXAMINATION VITAL SIGNS: Blood Pressure: 108/76Sitting, Right arm, regular cuff Pulse- 66.00/min. Weight- 235.90 lbs. Height- 71.00 BMI Measurement: 33 CONSTITUTIONAL cooperative, alert and [...] adventitious sounds CARDIAC S1, S2 regular with 3/6 hsm apex. Early 1-2/6 esm base without [...] appropriate, oriented to time, person and place. MEDICATIONS UPDATED/STARTED TODAY: albuterol sulfate 2.5 mg/0.5 mL solution for nebulization, Take as Directed, #0 (Zero) atenolol 25 mg tablet, 1 p.o. daily, #0 (Zero) Crestor 20 mg tablet, 1 p.o. daily, #0 (Zero) Cymbalta 20 mg capsule,delayed release(DR/EC), Dose/instruction UNKNOWN, #0 (Zero) Flonase 50 mcg/actuation spray,suspension, Take as Directed, #0 (Zero) ipratropium-albuterol 0.5 mg-3 mg(2.5 mg base)/3 mL solution for nebinhl, Take as Directed, #0 (Zero) lisinopril 2.5 mg tablet, one tablet daily, #30 (Thirty) loratadine 10 mg tablet, 1 p.o. daily, #0 (Zero) Neurontin 300 mg capsule, 1 three times daily, #0 (Zero) nitroglycerin 0.4 mg tablet, sublingual, 1 p.o. PRN as Directed, #0 (Zero) omeprazole 20 mg capsule,delayed release(DR/EC), 1 p.o. daily, #0 (Zero) oxycodone 5 mg capsule, 1 p.o. as Directed, #0 (Zero) Spiriva with HandiHaler 18 mcg capsule, w/inhalation device, 1 p.o. daily, #0 (Zero) Symbicort 160-4.5 mcg/actuation HFA aerosol inhaler, Take as Directed, #0 (Zero) Vitamin D2 50,000 unit capsule, 1p.o. weekly, #0 (Zero) MEDICATIONS REFILLED/STOPPED TODAY: Aspirin Childrens 81 mg tablet,chewable 1 p.o. daily #0 (Zero) Other Physician Order, Crestor 20 mgtablet Dose/instruction UNKNOWN #0 (Zero) Directions Changed-No Abbrvs, hydrochlorothiazide 25 mg tablet 1 p.o. daily #0 (Zero) Physician Order, hydrochlorothiazide 25 mg tablet Dose/instruction UNKNOWN #0 (Zero) Directions Changed-No Abbrvs, Lyrica 100 mg capsule Dose/instruction UNKNOWN #0 (Zero)Substitution, Neurontin 300 mg capsule Take as Directed #0 (Zero) Directions Changed-No Abbrvs and Zetia 10 mg tablet 1 p.o. daily #0 (Zero) Physician Order IMPRESSIONS/PLAN This is a 67-year-old gentleman with dyslipidemia, coronary disease, ongoing tobacco abuse, historyof coronary artery bypass grafting, severe peripheral vascular disease as outlined above, hypertension, and ischemic cardiomyopathy with the last ejection fraction being 40% at the time of a nuclear stress test (which showed a large severe anterior defect in March 2012). At this point, I would recommend a referral to one of our vascular physicians. I have strongly reinforced the importance of stopping smoking at great length. With respect to his medical regimen, I would stop the Zetia with an absence of outcomes benefit as well as his hydrochlorothiazide. Instead, I would initiate lisinopril 2.5 mg daily. We will follow up his labs in a week's time. He will have a clinical evaluation at that point as well. He is not on aspirin because he was told that he had ulcers on an EGD recently. This was temporarily discontinued. I have encouraged him to follow up with the electrical project engineer to determine when he could restart that or another antiplatelet agent given his vascular disease. He has verbalized understanding and agrees. I would like to check a Lexiscan sestamibi and an echocardiogram given his chest discomfort since his last Lexiscan. I would recommend that his hernia surgery be postponed until the Lexiscan sestamibi can be obtained. This will be communicated to his primary physician. We will see him back as soon as possible and will make further recommendations at that time. It was a pleasure being involved in his care. Total time was 45 minutes and 40 minutes was spent in coordination of care and counseling. TODAYS ORDERS 1. 2D, color flow, doppler 1 Day 2. F/U with Any CONTROL CLERK HEAD 7-14 days 3. Lexiscan Infusion 2 Days, able to convert to treadmill stress if pt able to exercise 4. Pulmonary [place] [place] [facility] [place] 5. Pulmonary Function Test Schedule at [facility] Milagros Garrido M.D. documented in this encounter Plan of Treatment Not on file documented as of this encounter Visit Diagnoses Not on filedocumented in this encounter Additional Health Concerns Infection Onset Date Last Indicated Resolved Time Rule Out COVID-19 07/27/2019 07/27/2019 07/27/2019 10:15 PM CDT documented as of this encounter Care Teams Airplane Electrician Relationship Specialty Start [place] [address] [place] [address] PCP - General Family Practice 03/02/13 12/21/14 [place] [address] [place] [address] PCP - General Family Practice 03/14/21 [place] [address] [place] [address] PCP - Assigned PCP 09/19/14 05/13/18 [place] [address] [address] PCP - General 03/15/20 03/13/21 [facility] [address] [place] [address] 02/10/13 03/08/15 Laurence Steele, JARON Clinic Restaurant Management Internship Nurse 03/09/15 [place] [address] [place] [address] Assigned PCP 09/19/14 02/23/22 Nela Sheth, RN Personal Advocate & Liaison (PAL) Family Practice 10/13/19 03/14/20 Ella Matias PA-C 909 [place] [address] Assigned Cancer Care Provider 01/01/20 03/18/21 Santi Heller MD 6363 [facility] 500 [place] [address] Assigned Surgical Provider 01/01/2003/01 Aashish Leone MD Assigned Heart and Vascular Provider 01/01/20 05/07/20 [place] [address] [facility] [address] [place] [address] Assigned Musculoskeletal Provider 01/01/20 07/23/20 Miguel Culver PA-C 6[address] [facility] [place] [address] Assigned Heart and Vascular Provider 05/25/20 04/29/21 [place] [address] [place], [place] [address] Assigned PCP 05/05/22 10/19/22 documented as of this encounter
--- OUTSIDE RECORDS SUMMARY | 2023-09-26 14:50 | XMS_ITS | Encounter Summary ---
Author Organization [place] Address [address] [place] [address] Care Team Providers Care Cotton Ball Bagger Name Role Phone Wesley Dugan MD Primary Care Provider [phone] Laurence Steele RN Unavailable Wesley Dugan MD Unavailable [phone] Wesley Dugan MD Unavailable [phone] Nela Sheth RN Unavailable Unavailable Ella Matias PA-C Unavailable Santi Heller MD Unavailable Aashish Leone MD Unavailable Unavail able Tato Mallory MD Unavailable Chirag Taylor MD Primary Care Provider + Miguel Culver PA-C Unavailable Wesley Dugan MD Unavailable [phone] Encounter Details Date Type Department Care Team (Late st Contact Info) Description 01/30/2016 [facility] Surgery [facility] [address] [place] [address] Hans Schultz MD [address] [place] [address] Social History Tobacco Use Types Packs/Day Years [...] Sex Assigned at Male 03/30/2018 7:28 AM ASPHALT DISTRIBUTOR TENDER Gender Identity Male 03/30/2018 7:28 AM ASPHALT DISTRIBUTOR TENDER Sexual Orientation Straight 02/18/2018 9: 07 AM ASPHALT DISTRIBUTOR TENDER documented as of this encounter Plan of Treatment Not on file documented as of this encounter Visit Diagnoses Not on filedocumented in this encounter Additional Health Concerns Infection Onset Date Last Indicated Resolved Time Rule Out COVID-19 07/27/2019 07/27/2019 07/27/2019 10:15 PM CDT Assessment Noted Time PHQ-9 Depression Total Score: 13 11/22/ 016 7:18 AM CDT documented as of this encounter Care Teams Cotton Ball Bagger Relationship Specialty [place] [address] [place] [address] PCP - General Family Practice 03/14/21 [place] [address] [place] [address] PCP - Assigned PCP 09/19/14 05/13/18 [place] [address] [address] PCP - General 03/15/20 03/13/21 Laurence Steele RN Clinic Press Worker Helper Nurse 03/09/15 [place] [address] [place], [place] [address] Assigned PCP 09/19/14 02/23/22 Nela Sheth, RN Personal Advocate & Liaison (PAL) Family Practice 10/13/19 03/14/20 Ella Matias PA-C 909 [place] [address] Assigned Cancer Care Provider 01/01/20 03/18/21 Santi Heller MD 6363 [facility] 500 [place], [place] [address] Assigned Surgical Provider 01/01/2003/01 Aashish Leone MD Assigned Heart and Vascular Provider 01/01/20 05/07/20 [place] [address] [facility] 300 [place] [address] Assigned Musculoskeletal Provider 01/01/20 07/23/20 Miguel Culver PA-C [address]405 [place] [address] Assigned Heart and Vascular Provider 05/25/20 04/29/21 [place] [address] [place] [address] Assigned PCP 05/05/22 10/19/22 documented as of this encounter
--- OUTSIDE RECORDS SUMMARY | 2023-09-26 14:50 | XMS_ITS | Encounter Summary ---
Author Organization [facility] Address [address] [place] [address]. [place] [address] Care Team Providers Care Research Program Assistant Name Role Phone Wesley Dugan MD Primary Care Provider Wesley Dugan MD Unavailable [phone] Nela Sheth RN Unavailable Unavailable Ella Matias PA-C Unavailable Santi Heller MD Unavailable Aashish Leone MD Unavailable Unavail able Tato Mallory MD Unavailable Chirag Taylor MD Primary Care Provider + Miguel Culver PA-C Unavailable Wesley Dugan MD Unavailable [phone] Reason for Visit * Reason Comments Medication Refill Oxycodone Encounter Details Date Type Department Care Team (Late st Contact Info) Description 06/17/2019 Refill [facility] [address] [place] [address] [place] [address] [place] [address] Medication Refill (Oxycodone) Social History Tobacco Use Types Packs/Day Years Used Date Smoking Tobacco: Former Cigarettes 0 1958 - 2016 Smokeless Tobacco: Never Alcohol Use Standard Drinks/Week Comments Not Currently 0 (1 standard drink = 0.6 oz pur e alcohol) PHQ-2 Answer Date Recorded PHQ-2 Score 2 04/13/2019 Sex and Gender Information Value Date Recorded Sex Assigned at Male 03/30/2018 7:28 AM METAL GAUGE MAKER Gender Identity Male 03/30/2018 7:28 AM METAL GAUGE MAKER Sexual Orientation Straight 02/18/2018 9: 07 AM METAL GAUGE MAKER COVID-19 Exposure Response Date Recorded In the last month, have you been in contact with someone who was confirmed or suspected to have Coronavirus / COVID-19? Unable to assess 05/29/2019 7:44 AM CDT documented as of this encounter Miscellaneous Notes * Telephone Encounter - Karo Saini RN - 06/17/2019 10:36 AM CDT Oxycodone Last OV 05/29/19 telephone Last RF 05/21/19 #60 HOSPITALITY DIRECTOR updated. No concerns noted. Due 06/20/19. Not [facility] med. Sent to provider. Please advise. Karo Saini RN documented in this encounter Plan of Treatment Not on file documented as of this encounter Visit Diagnoses Diagnosis Peripheral polyneuropathy Unspecified hereditary and idiopathic peripheral neuropathy Chronic pain syndrome documented in this encounter Additional Health Concerns Infection Onset Date Last Indicated Resolved Time Rule Out COVID-19 07/27/2019 07/27/2019 07/27/2019 10:15 PM CDT Assessment Noted Time PHQ-9 Depression Total Score: 5 04/14/19 20 7:02 AM METAL GAUGE MAKER documented as of this encounter Care Teams Research Program Assistant Relationship Specialty Start [place] [address] [place] [address] PCP - General Family Practice 03/14/21 [place] [address] [address] PCP - General 03/15/20 03/13/21 [place] [address] [place] [address] Assigned PCP 09/19/14 02/23/22 Nela Sheth, RN Personal Advocate & Liaison (PAL) Family Practice 10/13/19 03/14/20 Ella Matias PA-C 9 [place] [address] Assigned Cancer Care Provider 01/01/20 03/18/21 Santi Heller MD 6363 [facility] 500 [place] [address] Assigned Surgical Provider 01/01/2003/01 Aashish Leone MD Assigned Heart and Vascular Provider 01/01/20 05/07/20 [place] [address] [facility] 300 [place] [address] Assigned Musculoskeletal Provider 01/01/20 07/23/20 Miguel Culver PA-C 6405 [place] [address] Assigned Heart and Vascular Provider 05/25/20 04/29/21 [place] [address] [place], [place] [address] Assigned PCP 05/05/22 10/19/22 documented as of this encounter
--- OUTSIDE RECORDS SUMMARY | 2023-09-26 14:50 | XMS_ITS | Encounter Summary ---
Author Organization [facility] Address [address] [place] [address] Care Team Providers Care Electrical And Instrument Engineer Name Role Phone Wesley Dugan MD Primary Care Provider [phone] Wesley Dugan MD Unavailable [phone] Nela Sheth RN Unavailable Unavailable Ella Matias PA-C Unavailable Santi Heller MD Unavailable Aashish Leone MD Unavailable Unavail able Tato Mallory MD Unavailable [phone] Chirag Taylor MD Primary Care Provider + Miguel Culver PA-C Unavailable [phone] Wesley Dugan MD Unavailable Encounter Details Date Type Department Care Team (Late st Contact Info) Description 09/30/2018 [facility] [address] [address] Varsha Jeronimo RN Social History Tobacco Use Types Packs/Day Years Used Date Smoking Tobacco: Former Cigarettes 0 1958 - 2016 Smokeless Tobacco: Never Alcohol Use Standard Drinks/Week Comments Not Currently 0 (1 standard drink = 0.6 oz pur e alcohol) PHQ-2 Answer Date Recorded PHQ-2 Score 4 03/18/2018 Sex and Gender Information Value Date Recorded Sex Assigned at Male 03/30/2018 7:28 AM BATCH MIXER OPERATOR Gender Identity Male 03/30/2018 7:28 AM BATCH MIXER OPERATOR Sexual Orientation Straight 02/18/2018 9: 07 AM BATCH MIXER OPERATOR documented as of this encounter Plan of Treatment Not on file documented as of this encounter Visit Diagnoses Not on filedocumented in this encounter Additional Health Concerns Infection Onset Date Last Indicated Resolved Time Rule Out COVID-19 07/27/2019 07/27/2019 07/27/2019 10:15 PM CDT Assessment Noted Time PHQ-9 Depression Total Score: 8 09/05/19 19 3:51 PM CDT documented as of this encounter Care Teams Electrical And Instrument Engineer Relationship Specialty Start [place] [address] [place] [address] PCP - General Family Practice 03/14/21 [place] [address] [address] PCP - General 03/15/20 03/13/21 [place] [address] [place] [address] Assigned PCP 09/19/14 02/23/22 Nela Sheth RN Personal Advocate & Liaison (PAL) Family Practice 10/13/19 03/14/20 Ella Matias, PALizzethC 909 [place] [address] Assigned Cancer Care Provider 01/01/20 03/18/21 Santi Heller MD 6363 [facility] 500 [place] [address] Assigned Surgical Provider 01/01/2003/01 Aashish Leone MD Assigned Heart and Vascular Provider 01/01/20 05/07/20 [place] [address] [address] Assigned Musculoskeletal Provider 01/01/20 07/23/20 Miguel Culver PA-C 6405 [place] [address] Assigned Heart and Vascular Provider 05/25/20 04/29/21 [place] [address] [place] [address] Assigned PCP 05/05/22 10/19/22 documented as of this encounter
--- NOTE | 2023-09-26 14:53 | ED.GENADULT ---
HPI - General Adult General Chief complaint: Hypotension Stated complaint: Low bp 63/57, eyesight fuzzy-history of heart issu Time Seen by Provider: 09/26/23 14:09 Source: patient Mode of arrival: ambulatory Limitations: no limitations History of Present Illness HPI narrative: 77-year-old male coming in today with episodes of feeling lightheaded. Patient states he has had 2 episodes today where he was sitting at home relaxing well with some his vision became blurry and he felt lightheaded. The 1st episode happened approximately 5 hours ago and the last episode happened approximately 1 hour ago. They lasted a few minutes. But it leaves him feeling generally unwell. He denies chest pain, no increasing shortness of breath. Patient does state that he is chronically short of breath, has a chronic cough that is unchanged. He does say that he has stomach upset lately-he describes it as a discomfort of the entire stomach area, he denies nausea or vomiting. States that he has been eating normally. He states that he has alternating a constipation and diarrhea which is not new. He denies any urinary symptoms such as increased frequency, urgency or dysuria. No blood in his stool or urine. He complains of losing weight recently-however he cannot tell me how many lb over what amount of time. He does tell me that he has weight has been stable over the last 2 days and tells me that he checks his weight daily. Patient is very concerned today because he was diagnosed with basal cell carcinoma of the skin and has had a couple spots removed, he is concerned about his COPD, he is concerned about his low back pain which is chronic. He does state that he has baseline anxiety and has had panic attacks in the past. Patient is here today with his daughter who is concerned that he has been having panic attacks today. However, when she checked his blood pressure when he was having these episodes and the 1st time his systolic blood pressure was 63 and the 2nd time his systolic blood pressure was 76. Patient is currently taking blood pressure medications including carvedilol, losartan. He is also on amiodarone for chronic atrial flutter/fibrillation which has been rate controlled. Related Data Home Medications ?Medication ?Instructions ?Recorded ?Confirmed acetaminophen 500 mg tablet 1,000 mg PO Q6H 11/09/21 09/18/23 fexofenadine 180 mg tablet 180 mg PO DAILY 11/10/21 09/18/23 (Joanna Allergy) melatonin 5 mg capsule 10 mg PO HS PRN 11/10/21 09/18/23 cpap 01/17/22 08/07/23 clopidogrel 75 mg tablet 75 mg PO DAILY 04/18/22 09/18/23 losartan 25 mg tablet 25 mg PO DAILY Hypertension 01/21/23 09/18/23 sennosides 8.6 mg-docusate sodium 2 tab-cap PO DAILY PRN constipation 02/04/23 09/18/23 50 mg tablet (Senna-S) aspirin 81 mg chewable tablet 81 mg PO QDAY 03/12/23 09/18/23 Previous Rx's ?Medication ?Instructions ?Recorded rosuvastatin 40 mg tablet 40 mg PO DAILY #90 tabs 10/04/22 cholecalciferol (vitamin D3) 25 50 mcg (2 x 25 mcg (1,000 unit)) 02/26/23 mcg (1,000 unit) chewable tablet PO DAILY Low Vitamin D #90 tabs (Vitamin D3) amiodarone 200 mg tablet 200 mg PO QDAY #90 tabs 03/14/23 apixaban 5 mg tablet (Eliquis) 5 mg PO BID #180 tabs 03/14/23 carvedilol 12.5 mg tablet 12.5 mg PO BID #180 tabs 03/14/23 famotidine 20 mg tablet 20 mg PO DAILY #90 tabs 03/14/23 nitroglycerin 0.4 mg sublingual 0.4 mg sublingual DIRECTED for 04/08/23 tablet angina #100 tabs tiotropium bromide 18 mcg capsule 1 cap inhalation QDAY #90 04/19/23 with inhalation device (Spiriva inhalations with HandiHaler) methimazole 5 mg tablet 5 mg PO DAILY #90 tabs 05/31/23 triamcinolone acetonide 0.1 % 1 applic topical BID #80 grams 06/11/23 topical cream allopurinol 100 mg tablet 100 mg PO DAILY #90 tabs 07/19/23 ipratropium bromide 21 mcg (0.03 2 spray intranasal TID PRN COPD 07/19/23 %) nasal spray #90 mL budesonide-formoterol HFA 80 2 puff inhalation BID COPD #3 ea 08/21/23 mcg-4.5 mcg/actuation aerosol inhaler (Symbicort) cyanocobalamin (vitamin B-12) 1,000 mcg PO DAILY Anemia #90 tabs 08/21/23 1,000 mcg tablet fluticasone propionate 50 2 spray intranasal BID for 09/03/23 mcg/actuation nasal allergies #48 grams spray,suspension oxycodone 5 mg tablet 5 mg PO BID pain #60 tabs 09/04/23 ipratropium 0.5 mg-albuterol 3 mg 3 ml inhalation TID PRN copd 09/05/23 (2.5 mg base)/3 mL nebulization #1,080 mL soln albuterol sulfate 90 mcg/actuation 2 puff inhalation Q4H PRN 09/16/23 aerosol inhaler shortness of breath or wheezing #8.5 grams omeprazole 20 mg capsule,delayed 20 mg PO DAILY #90 caps 09/16/23 release roflumilast 500 mcg tablet 500 mcg PO DAILY Anemia #90 tabs 09/16/23 (Daliresp) azithromycin 250 mg tablet See Rx Instructions PO .COMPLEX #6 09/18/23 (Zithromax Z-Brijesh) tabs prednisone 20 mg tablet 20 mg PO BID #10 tabs 09/18/23 Allergies Allergy/AdvReac Type Severity Reaction Status Date / Time bupropion Allergy Unknown tinnitus Verified 09/18/23 12:41 isosorbide Allergy Unknown Headache Verified 09/18/23 12:41 spironolactone Allergy Unknown gynecomasti Verified 09/18/23 12:41 a topiramate Allergy Unknown doses Verified 09/18/23 12:41 higher than 50 daily not tolerated venlafaxine Allergy Unknown Anxiety Verified 09/18/23 12:41 Review of Systems Status of ROS: Reports: 10 or more systems reviewed and unremarkable except as noted in History and below [facility] Medical History Anemia ?D64.9 - Anemia, unspecified (ICD-10) Cough ?R05.9 - Cough, unspecified (ICD-10) Gout ?M10.9 - Gout, unspecified (ICD-10) Atrial fibrillation with RVR ?I48.91 - Unspecified atrial fibrillation (ICD-10) Urinary retention ?R33.9 - Retention of urine, unspecified (ICD-10) Osteoarthritis of left hip ?M16.12 - Unilateral primary osteoarthritis, left hip (ICD-10) TMJ (temporomandibular joint syndrome) ?M26.609 - Unspecified temporomandibular joint disorder, unspecified side (ICD-10) Lumbar degenerative disc disease ?M51.36 - Other intervertebral disc degeneration, lumbar region (ICD-10) Low back pain ?M54.50 - Low back pain, unspecified (ICD-10) COPD (chronic obstructive pulmonary disease) ?J44.9 - Chronic obstructive pulmonary disease, unspecified (ICD-10) Chronic low back pain ?M54.50 - Low back pain, unspecified (ICD-10) ?G89.29 - Other chronic pain (ICD-10) Right shoulder pain ?M25.511 - Pain in right shoulder (ICD-10) Lesion of right external ear ?H61.91 - Disorder of right external ear, unspecified (ICD-10) Thrush, oral ?B37.0 - Candidal stomatitis (ICD-10) Insomnia ?G47.00 - Insomnia, unspecified (ICD-10) Angina at rest ?I20.8 - Other forms of angina pectoris (ICD-10) Hypertension ?I10 - Essential (primary) hypertension (ICD-10) Seasonal allergic rhinitis ?J30.2 - Other seasonal allergic rhinitis (ICD-10) Peripheral vascular disease ?I73.9 - Peripheral vascular disease, unspecified (ICD-10) Obstructive sleep apnea treated with continuous positive airway pressure (CPAP) ?G47.33 - Obstructive sleep apnea (adult) (pediatric) (ICD-10) ?Z99.89 - Dependence on other enabling machines and devices (ICD-10) Monoclonal gammopathy ?D47.2 - Monoclonal gammopathy (ICD-10) Hyperlipidemia ?E78.5 - Hyperlipidemia, unspecified (ICD-10) History of malignant neoplasm of skin ?Z85.828 - Personal history of other malignant neoplasm of skin (ICD-10) History of depression ?Z86.59 - Personal history of other mental and behavioral disorders (ICD-10) History of calcium pyrophosphate deposition disease (CPPD) ?Z87.39 - Personal history of other diseases of the musculoskeletal system and connective tissue (ICD-10) History of adenomatous polyp of colon (02/12/18) ?Z86.010 - Personal history of colonic polyps (ICD-10) Gastroesophageal reflux disease ?K21.9 - Gastro-esophageal reflux disease without esophagitis (ICD-10) Enlarged prostate ?N40.0 - Benign prostatic hyperplasia without lower urinary tract symptoms (ICD-10) Coronary artery disease ?I25.10 - Atherosclerotic heart disease of [place] coronary artery without angina pectoris (ICD-10) Congestive heart failure ?I50.9 - Heart failure, unspecified (ICD-10) Chronic, continuous use of opioids ?F11.90 - Opioid use, unspecified, uncomplicated (ICD-10) Chronic right shoulder pain (2018) ?M25.511 - Pain in right shoulder (ICD-10) ?G89.29 - Other chronic pain (ICD-10) Chronic pancreatitis ?K86.1 - Other chronic pancreatitis (ICD-10) Chronic obstructive pulmonary disease ?J44.9 - Chronic obstructive pulmonary disease, unspecified (ICD-10) Chronic neck pain ?M54.2 - Cervicalgia (ICD-10) ?G89.29 - Other chronic pain (ICD-10) Carpal tunnel syndrome of right wrist ?G56.01 - Carpal tunnel syndrome, right upper limb (ICD-10) Aortic aneurysm ?I71.9 - Aortic aneurysm of unspecified site, without rupture (ICD-10) Hyperthyroidism ?E05.90 - Thyrotoxicosis, unspecified without thyrotoxic crisis or storm (ICD-10) Surgical History History of total left hip replacement (01/21/23) ?Z96.642 - Presence of left artificial hip joint (ICD-10) H/O excision of ganglion cyst (04/25/22) ?Z98.890 - Other specified postprocedural states (ICD-10) History of carpal tunnel surgery of left wrist (04/25/22) ?Z98.890 - Other specified postprocedural states (ICD-10) Status post coronary angiogram ?Z98.890 - Other specified postprocedural states (ICD-10) History of carpal tunnel surgery of right wrist (11/30/20) ?Z98.890 - Other specified postprocedural states (ICD-10) S/P cubital tunnel release (11/30/20) ?Z98.890 - Other specified postprocedural states (ICD-10) Status post six vessel coronary artery bypass graft (1996) ?Z95.1 - Presence of aortocoronary bypass graft (ICD-10) History of umbilical hernia repair (04/16/13) ?Z98.890 - Other specified postprocedural states (ICD-10) ?Z87.19 - Personal history of other diseases of the digestive system (ICD-10) History of spinal surgery ?Z98.890 - Other specified postprocedural states (ICD-10) History of rotator cuff surgery (2007) ?Z98.890 - Other specified postprocedural states (ICD-10) History of operative procedure on hip (04/01/18) ?Z98.890 - Other specified postprocedural states (ICD-10) History of endarterectomy (2012) ?Z98.890 - Other specified postprocedural states (ICD-10) History of colonoscopy with polypectomy ?Z98.890 - Other specified postprocedural states (ICD-10) ?Z86.010 - Personal history of colonic polyps (ICD-10) History of cholecystectomy ?Z90.49 - Acquired absence of other specified parts of digestive tract (ICD-10) History of carpal tunnel surgery of left wrist (2007) ?Z98.890 - Other specified postprocedural states (ICD-10) History of appendectomy ?Z90.49 - Acquired absence of other specified parts of digestive tract (ICD-10) History of aortic aneurysm repair (2012) ?Z98.890 - Other specified postprocedural states (ICD-10) ?Z86.79 - Personal history of other diseases of the circulatory system (ICD-10) Family History Father Asthma Sister Asthma Breast cancer Lung cancer Mother Dementia Rheumatoid arthritis Social History Narrative: , five daughters, does not use illicit drugs, nonsmoker. Occasional alcohol. History of some cannabis use but not recently and not regularly. Lives in [facility]. He has been in [facility] for the last 2 weeks for rehab following his hip surgery. What is your current living situation?: I presently have a place to live Problems where you live: no known problems Problems where you live details: na In the past 12 months, utilities in danger of being shut off: no In past 12 months, lack of transportation kept you from medical appts, meetings, work, or getting things needed for daily living: no In the past 12 mos, have been you worried that your food would run out before you had money to buy more?: never true In the past 12 mos, the food you bought just didn't last and you didn't have money to buy more?: never true Highest level of school completed/degree received: 12th grade, no diploma Smoking Status: Former smoker Do you use any of these nicotine containing products: None Second hand tobacco smoke exposure: No How often do you have a drink containing alcohol: monthly or less How many standard drinks containing alcohol do you have on a typical day: 1 or 2 How often do you have six or more drinks on one occasion: Less than monthly AUDIT-C Alcohol total score: 2 Non-prescribed substance use: denies use Non-prescribed substance use details: was trying THC gummies but not effective and hasn't had them in a while. Caffeine: Yes How often does anyone, including family, friends and others, physically hurt you: never How often does anyone, including family, friends and others, insult or talk down to you: never How often does anyone, including family, friends and others, threaten you with harm: never How often does anyone, including family, friends and others, scream or curse at you: never Little interest or pleasure in doing things: more than half the days Feeling down, depressed, or hopeless: several days service: Yes Exam Narrative: Exam Narrative: Well-nourished well-developed patient in no acute distress but is anxious. Alert and oriented. Answers questions appropriately. Thoughts are goal oriented and rational. Patient speaks in full sentences without needing to catch his breath. HEENT: Normocephalic atraumatic. Pupils are equally round reactive to light. Extraocular muscles are intact. Conjunctivae are moist without any icterus noted. Moist mucous membranes. Posterior pharynx is normal. Neck is soft without any lymphadenopathy or thyromegaly. No masses are appreciated. Cardiovascular: Heart is regular rate and rhythm S1 and S2 are present without any murmurs. Lungs: Decreased breath sounds bilaterally with end-expiratory crackles bilaterally. Abdomen: Soft and nontender nondistended with normal bowel sounds. No guarding or rebound. No masses or organomegaly appreciated. Extremities: Bilateral lower extremities show trace edema. Normal DP and PT pulses. Skin: Well perfused without any obvious rashes. Scattered ecchymosis of the upper extremities. Const: Vital Signs, click to edit/add: Vital Signs - 24 hr 09/26/23 14:14 09/26/23 14:24 09/26/23 14:30 Temperature 98.3 F Pulse Rate 78 80 Pulse Rate [Right Pulse Oximeter] 86 Respiratory Rate 18 Blood Pressure Blood Pressure [Ri ght Upper Arm] 112/86 Pulse Oximetry 96 96 98 Oxygen Delivery Me thod Room Air 09/26/23 14:33 09/26/23 15:02 09/26/23 15:03 Temperature Pulse Rate 69 56 L 55 L Pulse Rate [Right Pulse Oximeter] Respiratory Rate Blood Pressure 107/59 L Blood Pressure [Ri ght Upper Arm] Pulse Oximetry 99 97 96 Oxygen Delivery Me thod 09/26/23 15:06 09/26/23 15:15 Temperature Pulse Rate 60 59 L Pulse Rate [Right Pulse Oximeter] Respiratory Rate Blood Pressure 103/65 Blood Pressure [Ri ght Upper Arm] Pulse Oximetry 99 96 Oxygen Delivery Me thod Course Course ED Course: EKG, read by me, shows atrial flutter, pulse 75. Blood pressure upon presentation is stable at 112/86 CBC shows normal white cell count, anemia worsen at 8.9 hemoglobin, platelet count 252. UA shows 2+ protein, positive nitrites, positive bilirubin. Troponin is normal. Chemistry shows slightly low sodium at 1:33 a.m., otherwise unremarkable. LFTs are unremarkable. CRP is elevated at 4.3. BNP 688. TSH pending at this time. Triple swab is negative. Chest x-ray, read by me, is unremarkable. I discussed results with patient and his daughter. We discussed doing a blood transfusion at this time verses monitoring. The patient is well wish to do a transfusion at this time. He states that he has appoint with his primary care provider in about 4-5 days and he wants to follow up there to decide what to do next. I think that is appropriate at this time. I do want him to stop his losartan. Patient had no other questions. Patient currently asymptomatic. Vital Signs Vital signs: Initial Vital Signs Temperature 98.3 F 09/26/23 14:14 Temperature Source Temporal Artery Scan 09/26/23 14:14 Pulse Rate 86 09/26/23 14:14 Pulse Rhythm Regular 09/26/23 14:14 Pulse Strength 3+ Normal 09/26/23 14:14 Respiratory Rate 18 09/26/23 14:14 Blood Pressure 112/86 09/26/23 14:14 Blood Pressure Mean 94 09/26/23 14:14 Blood Pressure Position High-Fowlers 09/26/23 14:14 Pulse Oximetry 96 09/26/23 14:14 Oxygen Delivery Method Room Air 09/26/23 14:14 Vital Signs Temperature 98.3 F 09/26/23 14:14 Pulse Rate 86 09/26/23 14:14 Respiratory Rate 18 09/26/23 14:14 Blood Pressure 112/86 09/26/23 14:14 Pulse Oximetry 96 09/26/23 14:14 Oxygen Delivery Method Room Air 09/26/23 14:14 Temperature 98.3 F 09/26/23 14:14 Pulse Rate 59 L 09/26/23 15:15 Respiratory Rate 18 09/26/23 14:14 Blood Pressure 103/65 09/26/23 15:06 Pulse Oximetry 96 09/26/23 15:15 Oxygen Delivery Method Room Air 09/26/23 14:14 Medical Decision Making MDM Narrative Medical decision making narrative: 77-year-old male with episodes of lightheadedness and low blood pressure. Patient does have anemia that is worsening over the last year. He will follow up with primary care provider this coming week for repeat hemoglobin. Discussed reasons for anemia, and stop losartan in the meantime. If he feels worse within this time period, he is encouraged to return to the ER. Medical Records Medical records reviewed: Yes I reviewed the patient's medical records Lab Data Lab results reviewed: Yes I reviewed the patient's lab results Labs: Lab Results 09/26/23 09/26/23 09/26/23 Range/Units 14:35 14:40 14:50 WBC 8.18 (4.50-11.00) K/uL RBC 4.26 L (4.30-5.90) m/uL Hgb 8.9 L (13.5-17.5) gm/dL Hct 30.6 L (37.0-53.0) % MCV 72 L (80-100) fL MCH 21 L (26-34) pg MCHC 29 L (32-36) gm/dL RDW Coeff of Donnie 16.0 H (11.5-15.5) % Plt Count 252 (140-440) K/uL Neut % (Auto) 56.5 (42.0-72.0) % Lymph % (Auto) 28.9 (20-44) % [place] % (Auto) 12.8 H (0.0-11.0) % Eos % (Auto) 1.5 (0.0-7.0) % Baso % (Auto) 0.1 (0.0-3.0) % Neut # (Auto) 4.62 (1.7-7.0) K/uL Lymph # (Auto) 2.36 (0.90-2.90) K/uL [place] # (Auto) 1.00 H (0.00-0.90) K/UL Eos # (Auto) 0.12 (0.00-0.50) K/uL Baso # (Auto) 0.01 (0.00-0.30) K/uL Abs Immat Gran (auto) 0.02 (0.00-0.30) K/uL Imm/Tot Granulo (auto) 0.2 % Sodium 133 L (135-149) mmol/L Potassium 3.8 (3.6-5.1) mmol/L Chloride 103 (96-114) mmol/L Carbon Dioxide 24 (20-32) mmol/L Anion Gap 6 L (7-15) mEq/L BUN 21 (7-30) mg/dL Creatinine 1.0 (0.5-1.5) mg/dL Estimated Creat Clear 73.07 Estimated GFR 78 ml/min Glucose 97 (60-115) mg/dL Lactate 1.1 (0.5-1.9) mmol/L Calcium 8.8 (8.4-10.6) mg/dL Magnesium 2.2 (1.5-2.6) mg/dL Total Bilirubin 0.7 (0.1-1.5) mg/dL Direct Bilirubin 0.3 (0.0-0.5) mg/dL AST 15 (12-35) U/L ALT 14 (4-50) U/L Alkaline Phosphatase 87 (40-150) U/L Troponin I < 0.01 L (0.01-0.04) ng/mL C-Reactive Protein 4.3 H (0.5-1.0) mg/dL NT-Pro-B Natriuret Pep 688 pg/mL Total Protein 6.4 (6.0-8.3) g/dL Albumin 3.7 (3.3-5.0) g/dL Urine Color [place] A (Yellow) Urine Appearance Clear (Clear) Urine pH 5.5 (5.0-8.5) Ur Specific [place] >= 1.030 (1.000-1.030) Urine Protein 2+ A (Negative) Urine Glucose (UA) Negative (Negative) Urine Ketones Negative (Negative) Urine Blood Negative (Negative) Urine Nitrite Positive A (Negative) Urine Bilirubin 1+ A (Negative) Urine Urobilinogen 1.0 (0.2-1.0) Ur Leukocyte Esterase Negative (Negative) Urine RBC 0-2 (0-2) Urine WBC 0-2 (0-5) Ur Squamous Epith Cells Few (None-Few) Other Sediment Few A (None) Urine Bacteria Moderate A (None) Urine Mucus Many A (None) SARS-CoV-2 (PCR) (Negative) Influenza Type A (PCR) (Negative) Influenza Type B (PCR) (Negative) RSV (PCR) (Negative) POC Troponin I 0.00 L (0.01-0.04) ng/ml 09/26/23 Range/Units 15:00 WBC (4.50-11.00) K/uL RBC (4.30-5.90) m/uL Hgb (13.5-17.5) gm/dL Hct (37.0-53.0) % MCV (80-100) fL MCH (26-34) pg MCHC (32-36) gm/dL RDW Coeff of Donnie (11.5-15.5) % Plt Count (140-440) K/uL Neut % (Auto) (42.0-72.0) % Lymph % (Auto) (20-44) % [place] % (Auto) (0.0-11.0) % Eos % (Auto) (0.0-7.0) % Baso % (Auto) (0.0-3.0) % Neut # (Auto) (1.7-7.0) K/uL Lymph # (Auto) (0.90-2.90) K/uL [place] # (Auto) (0.00-0.90) K/UL Eos # (Auto) (0.00-0.50) K/uL Baso # (Auto) (0.00-0.30) K/uL Abs Immat Gran (auto) (0.00-0.30) K/uL Imm/Tot Granulo (auto) % Sodium (135-149) mmol/L Potassium (3.6-5.1) mmol/L Chloride (96-114) mmol/L Carbon Dioxide (20-32) mmol/L Anion Gap (7-15) mEq/L BUN (7-30) mg/dL Creatinine (0.5-1.5) mg/dL Estimated Creat Clear Estimated GFR ml/min Glucose (60-115) mg/dL Lactate (0.5-1.9) mmol/L Calcium (8.4-10.6) mg/dL Magnesium (1.5-2.6) mg/dL Total Bilirubin (0.1-1.5) mg/dL Direct Bilirubin (0.0-0.5) mg/dL AST (12-35) U/L ALT (4-50) U/L Alkaline Phosphatase (40-150) U/L Troponin I (0.01-0.04) ng/mL C-Reactive Protein (0.5-1.0) mg/dL NT-Pro-B Natriuret Pep pg/mL Total Protein (6.0-8.3) g/dL Albumin (3.3-5.0) g/dL Urine Color (Yellow) Urine Appearance (Clear) Urine pH (5.0-8.5) Ur Specific [place] (1.000-1.030) Urine Protein (Negative) Urine Glucose (UA) (Negative) Urine Ketones (Negative) Urine Blood (Negative) Urine Nitrite (Negative) Urine Bilirubin (Negative) Urine Urobilinogen (0.2-1.0) Ur Leukocyte Esterase (Negative) Urine RBC (0-2) Urine WBC (0-5) Ur Squamous Epith Cells (None-Few) Other Sediment (None) Urine Bacteria (None) Urine Mucus (None) SARS-CoV-2 (PCR) Negative SARS-CoV-2 (Negative) Influenza Type A (PCR) Negative PCR FLU A (Negative) Influenza Type B (PCR) Negative PCR FLU B (Negative) RSV (PCR) Negative PCR RSV (Negative) POC Troponin I (0.01-0.04) ng/ml Imaging Data Chest x-ray: Attestation: I have reviewed the pertinent imaging results. Radiologist's impression: Chest 2 views Comparison: Chest x-ray 09/18/2023 Findings/Impression: Cardiovascular and mediastinum: Normal heart size with atherosclerotic calcification. Lungs and pleural spaces: Mild hyperinflation without pleural effusion or pneumothorax. No focal consolidation or significant interval change compared to the prior exam. Bones and soft tissues: Status post median sternotomy. ECG Data Attestation: I personally reviewed and interpreted this ECG as follows: Discharge Plan Discharge Clinical Impression: Blood pressure abnormally low, Anemia Patient Disposition: Home, Self-Care Condition: Stable Additional Instructions: Your workup today reveals a hemoglobin of 8.9. It appears that your blood counts have been slowly decreasing over the last year. You should follow-up with your primary care provider this coming week to discuss reasons for this and to have a hemoglobin repeated. Because her blood pressure has been low I do recommend you stop the Losartan at this time until you talk to your primary care provider. If you feel like your symptoms are getting worse before you see your doctor, return to the ER. Prescriptions: No Action acetaminophen 500 mg tablet 1,000 mg PO Q6H Rx Instructions: NO MORE THAN 4000 MG/DAY fexofenadine [Joanna Allergy] 180 mg tablet 180 mg PO DAILY melatonin 5 mg capsule 10 mg PO HS PRN (DME) cpap 0 .Route .MEDSUPPLY clopidogrel 75 mg tablet 75 mg PO DAILY Hold Instructions: Resume on 01/27/23. May restart this medication after completing Xarelto. aspirin 81 mg tablet,chewable 81 mg PO QDAY prednisone 20 mg tablet 20 mg PO BID Qty: 10 0RF azithromycin [Zithromax Z-Brijesh] 250 mg tablet See Rx Instructions PO .COMPLEX Qty: 6 0RF Rx Instructions: For 250 mg dose pack: take 500 mg today (day 1), then 250 mg for 4 days (days 2-5) PO sennosides-docusate sodium [Senna-S] 8.6-50 mg tablet 2 tab-cap PO DAILY PRN (Reason: constipation) losartan 25 mg tablet 25 mg PO DAILY rosuvastatin 40 mg tablet 40 mg PO DAILY Qty: 90 3RF cholecalciferol (vitamin D3) [Vitamin D3] 25 mcg (1,000 unit) tablet,chewable 50 mcg PO DAILY Qty: 90 3RF carvedilol 12.5 mg tablet 12.5 mg PO BID Qty: 180 3RF Rx Instructions: must administer with a meal/food Eliquis 5 mg tablet 5 mg PO BID Qty: 180 3RF amiodarone 200 mg tablet 200 mg PO QDAY Qty: 90 3RF famotidine 20 mg tablet 20 mg PO DAILY Qty: 90 3RF nitroglycerin 0.4 mg tablet, sublingual 0.4 mg sublingual DIRECTED Qty: 100 3RF tiotropium bromide [Spiriva with HandiHaler] 18 mcg capsule, w/inhalation device 1 cap inhalation QDAY Qty: 90 3RF Rx Instructions: puncture 1 cap using device; one dose = 2 inhalations methimazole 5 mg tablet 5 mg PO DAILY Qty: 90 3RF triamcinolone acetonide 0.1 % cream 1 applic topical BID Qty: 80 3RF allopurinol 100 mg tablet 100 mg PO DAILY Qty: 90 0RF ipratropium bromide 21 mcg (0.03 %) spray,non-aerosol 2 spray intranasal TID PRN (Reason: COPD) Qty: 90 0RF budesonide-formoterol [Symbicort] 80-4.5 mcg/actuation HFA aerosol inhaler 2 puff inhalation BID Qty: 3 3RF cyanocobalamin (vitamin B-12) 1,000 mcg tablet 1,000 mcg PO DAILY Qty: 90 3RF fluticasone propionate 50 mcg/actuation spray,suspension 2 spray intranasal BID Qty: 48 11RF oxycodone 5 mg tablet 5 mg PO BID MDD 6 Qty: 60 0RF Rx Instructions: plus 5mg q4h prn ipratropium-albuterol 0.5 mg-3 mg(2.5 mg base)/3 mL solution for nebulization 3 ml inhalation TID PRN (Reason: copd) Qty: 1080 3RF omeprazole 20 mg capsule,delayed release(DR/EC) 20 mg PO DAILY Qty: 90 3RF albuterol sulfate 90 mcg/actuation HFA aerosol inhaler 2 puff inhalation Q4H PRN (Reason: shortness of breath or wheezing) Qty: 8.5 2RF Rx Instructions: 3 inhalers roflumilast [Daliresp] 500 mcg tablet 500 mcg PO DAILY Qty: 90 3RF Follow Up/Referrals: Yordy Morin MD [Primary Care Provider] - Stand Alone Forms: [employer] Info Instructions
[2023-09-26 14:56] LABS: Lactate* 1.1 mmol/L (0.5-1.9)
[2023-09-26 14:58] LABS: Basophils Absolute Auto 0.01 K/uL (0.00-0.30); Basophils Percent Auto 0.1 % (0.0-3.0); Eosinophils Absolute Auto 0.12 K/uL (0.00-0.50); Eosinophils Percent Auto 1.5 % (0.0-7.0); Hematocrit 30.6 % (37.0-53.0); Hemoglobin* 8.9 gm/dL (13.5-17.5); Immature Granulocytes Abs Auto 0.02 K/uL (0.00-0.30); Immature Granulocytes Pct Auto 0.2 %; Lymphocytes Absolute Auto 2.36 K/uL (0.90-2.90); Lymphocytes Percent Auto 28.9 % (20-44); Mean Corpuscular HGB Conc 29 gm/dL (32-36); Mean Corpuscular Hemoglobin 21 pg (26-34); Mean Corpuscular Volume 72 fL (80-100); Monocytes Percent Auto 12.8 % (0.0-11.0); Neutrophils Absolute Auto 4.62 K/uL (1.7-7.0); Neutrophils Percent Auto 56.5 % (42.0-72.0); Platelet Count* 252 K/uL (140-440); Red Blood Count 4.26 m/uL (4.30-5.90); White Blood Count* 8.18 K/uL (4.50-11.00)
[2023-09-26 14:59] LABS: Appearance Urine Clear (Clear); Bilirubin Urine 1+ (Negative); Blood Urine Negative (Negative); Color Urine Orange (Yellow); Glucose Urine Negative (Negative); Ketones Urine Negative (Negative); Leukocyte Esterase Urine Negative (Negative); Nitrite Urine Positive (Negative); Protein Urine 2+ (Negative); Specific Gravity Urine >= 1.030 (1.000-1.030); pH Urine 5.5 (5.0-8.5)
[2023-09-26 14:59] LABS: Slide Review Reflex No
[2023-09-26 15:15] LABS: Albumin* 3.7 g/dL (3.3-5.0); Chloride* 103 mmol/L (96-114); Sodium* 133 mmol/L (135-149)
[2023-09-26 15:16] LABS: Potassium* 3.8 mmol/L (3.6-5.1)
[2023-09-26 15:18] LABS: Anion Gap 6 mEq/L (7-15); Aspartate Amino Transferase* 15 U/L (12-35); Bilirubin Direct* 0.3 mg/dL (0.0-0.5); Bilirubin Total* 0.7 mg/dL (0.1-1.5); Carbon Dioxide* 24 mmol/L (20-32); Est. Creatinine Clearance* 73.07; Estimated Glomerular Filt Rate 78 ml/min; Total Protein* 6.4 g/dL (6.0-8.3)
[2023-09-26 15:19] LABS: Alanine Aminotransferase* 14 U/L (4-50); Alkaline Phosphatase* 87 U/L (40-150); Blood Urea Nitrogen* 21 mg/dL (7-30); Calcium* 8.8 mg/dL (8.4-10.6); Glucose* 97 mg/dL (60-115); Magnesium* 2.2 mg/dL (1.5-2.6)
[2023-09-26 15:21] LABS: C Reactive Protein* 4.3 mg/dL (0.5-1.0)
[2023-09-26 15:23] LABS: Bacteria Urine Moderate; Mucus Urine Many; RBC Urine 0-2 (0-2); Squamous Epithelial Cell Urine Few (None-Few); WBC Urine 0-2 (0-5)
[2023-09-26 15:24] LABS: Other Sediment Urine Few
[2023-09-26 15:36] LABS: NT Pro B Type NatriureticPept* 688 pg/mL
[2023-09-26 15:37] LABS: Troponin I* < 0.01 ng/mL (0.01-0.04)
[2023-09-26 16:08] LABS: PCR FLU A Negative PCR FLU A (Negative); PCR FLU B Negative PCR FLU B (Negative); PCR RSV Negative PCR RSV (Negative); SARS PCR* Negative SARS-CoV-2 (Negative)
== END 2023-09-26 16:27 | disposition home or self-care (01) ==
PROVIDERS: Emergency Provider Family Medicine; PCP Internal Medicine
DX: I95.9 Hypotension, unspecified (principal); D64.9 Anemia, unspecified
CPT/HCPCS: 36415; 71046; 80048; 80076; 81001; 83605; 83735; 83880; 84443; 84484; 85025; 86140; 87086; 87631; 93005; 94761; 99284; 99285

== ENCOUNTER 2023-10-02 09:08 | Outpatient (CLI) | payer OTHER, SELFPAY | END 2023-10-02 09:09 | disposition home or self-care (01) | PROVIDERS: PCP Internal Medicine; Visit Provider Internal Medicine | DX: D64.9 Anemia, unspecified (principal); M10.9 Gout, unspecified; I10 Essential (primary) hypertension; E05.90 Thyrotoxicosis, unspecified without thyrotoxic crisis or storm | CPT/HCPCS: 82607; 82746; 83540; 83550; 85045 ==

== ENCOUNTER 2023-10-07 08:15 | Outpatient (CLI) | payer OTHER, MEDICAID, SELFPAY ==
--- OUTSIDE RECORDS SUMMARY | 2023-10-07 08:18 | XMS_ITS ---
Author Organization [facility] Address [address] [place] [address] Care Team Providers Care Tai Chi Instructor Name Role Phone Unavailable Unavailable Unavailable Surgery Details Not on file Complications Check Surgery Details section. Procedure Estimated Blood Loss Check Surgery Details section. Procedure Findings Check Surgery Details section. Procedure Specimens Taken Check Surgery Details section.
--- OUTSIDE RECORDS SUMMARY | 2023-10-07 08:18 | XMS_ITS | Referral Summary ---
Author Organization [facility] Address [address] [place] [address] Care Team Providers Care Ip Architect Name Role Phone Unavailable Primary Care Provider Unavailabl e Source Comments Patient records contain information from all sites at [facility]. For routine questions regarding patient records, call [phone] during business hours, M-F 8:00 AM - 5:00 PM Central Time. Record requests for emergency care only can be directed to [phone] at any time.[facility] Encounters Date Type Department Care Team Description 09/19/2023 Orders Only Division of Pulmonary Medicine in [place], [place] [address] [place] [address] Rivera Gil Bronchitis Chronic (HCC) (Primary Dx); Chronic Obstructive Pulmonary Disease (HCC) from Last 3 Months Social History Tobacco Use Types Packs/Day Years Used Date Smoking Tobacco: Never Assessed [facility] Utilities Answer Date Recorded In the past 12 months has [facility] [employer], gas, oil, or water [employer] threatened to shut off services in your home? No 10/02/2023 Exercise Vital Sign Answer Date Recorde d On average, how many days pe r week do you engage in moderate to strenuous exercise (like a brisk walk)? 0 days 10/02/2023 On average, how many minutes do you engage in exercise at this level? 0 min 10/02/2023 Hunger Vital Sign Answer Date Recorded Within the past 12 months, y ou worried that your food would run out before you got the money to buy more. Never true Within the past 12 months, t he food you bought just didn't last and you didn't have money to get more. Sometimes true PRAPARE - Transportation Answer Date Re corded In the past 12 months, has l ack of transportation kept you from medical appointments or from getting medications? No 09/09 In the past 12 months, has l ack of transportation kept you from meetings, work, or from getting things needed for daily living? No 10/02/2023 Nutrition Answer Date Recorded On average, how many serving s of fruits and vegetables do you eat per day (serving size is equal to 1 cup or approximately the size of a tennis ball)? 0-2 10/02/2023 Dental Answer Date Recorded Dental: Regular Dentist No 10/02/19 Employment Answer Date Recorded Employment status Permanently disabled Housing Stability Answer Date Recorded What is your living situation today? I [facility] place to [facility] 10/02/2023 Sex and Gender Information Value Date Recorded Sex Assigned at Male 10/02/2023 12:12 PM CDT Gender Identity Male 10/02/2023 12:12 PM CDT Sexual Orientation Straight 10/02/2023 12 :12 PM CDT Plan of Treatment Upcoming Encounters Date Type Department Care Team (Late st Contact Info) Description 10/08/2023 7:30 AM CDT Diagnostic Division of Pulmonary Medicine in [place], [place] [address] [place] [address] Fox Alvarez M.D. [address] [place] [phone] 10/08/2023 9:30 AM CDT Comprehensive Visit Division of Pulmonary Medicine in [place], [place] [address] [place] [address] Brooke Sanabria M.D. [address] [place] [phone] 10/08/2023 11:50 AM CDT Appointment Department of Laboratory Medicine and Pathology, [facility], in [place], [place] [address] [place] [address] Fox Alvarez M.D. [address] [place] [phone]
--- OUTSIDE RECORDS SUMMARY | 2023-10-07 08:18 | XMS_ITS | Encounter Summary ---
Author Organization [facility] Address [address] [place] [address] Care Team Providers Care Cruise Guide Name Role Phone Unavailable Primary Care Provider Unavailabl e Encounter Details Date Type Department Care Team (Late st Contact Info) Description 02/06/2018 [facility] [address] [place] [address] Wesley Dugan M.D. [address] [place] [phone] Graves' Disease (Primary Dx) Social History Tobacco Use Types Packs/Day Years Used Date Smoking Tobacco: Never Assessed Sex and Gender Information Value Date Recorded Sex Assigned at Male 10/02/2023 12:12 PM CDT Gender Identity Male 10/02/2023 12:12 PM CDT Sexual Orientation Straight 10/02/2023 12 :12 PM CDT documented as of this encounter Plan of Treatment Upcoming Encounters Date Type Department Care Team (Late st Contact Info) Description 10/08/2023 7:30 AM CDT Diagnostic Division of Pulmonary Medicine in [place], [place] [address] [place] [phone] Fox Alvarez M.D. [address] [place] [phone] 10/08/2023 9:30 AM CDT Comprehensive Visit Division of Pulmonary Medicine in [place], [place] [address] [place] [phone] Brooke Sanabria M.D. [address] [place] [address] 10/08/2023 11:50 AM CDT Appointment Department of Laboratory Medicine and Pathology, [facility] in [place], [place] [address] [place] [address] Fox Alvarez M.D. [address] [place] [address] documented as of this encounter Visit Diagnoses Diagnosis Graves' Disease- Primary documented in this encounter
--- OUTSIDE RECORDS SUMMARY | 2023-10-07 08:18 | XMS_ITS | Encounter Summary ---
Author Organization [facility] Address [address] [place] [address] Care Team Providers Care Commercial Real Estate Underwriter Name Role Phone Unavailable Primary Care Provider Unavailabl e Reason for Referral * Outpatient (Routine) - Authorized Specialty Diagnoses / Procedures Referred By Contac t Referred To Contact Research Diagnoses Bronchitis Chronic (HCC) Chronic Obstructive Pulmonary Disease (HCC) Fox Alvarez M.D. 200 [place] [address] [facility] Referral ID Status Reason Start Date Expiration Date V isits Requested Visits Authorized [id number] Authorized 09/19/2023 03/20/2025 1 1 Scheduling Instructions IRB [id number] * Outpatient (Routine) - Authorized Specialty Diagnoses / Procedures Referred By Contac t Referred To Contact Pulmonary Medicine Diagnoses Bronchitis Chronic (HCC) Chronic Obstructive Pulmonary Disease (HCC) Fox Alvarez M.D. [address] [place] [address] [facility] Referral ID Status Reason Start Date Expiration Date Visits Requested Visits Authorized [id number] Authorized Specialty Services Required 09/19/2023 03/20/2025 1 1 Scheduling Instructions Rivera to schedule, IRB [id number] Encounter Details Date Type Department Care Team (Late st Contact Info) Description 09/19/2023 Orders Only Division of Pulmonary Medicine in [place], [place] [address] [place] [phone] LouiseRivera [address] [place] [phone] Bronchitis Chronic (HCC) (Primary Dx); Chronic Obstructive [...] CDT Diagnostic Division of Pulmonary Medicine in [place], [place] [address] [place] [phone] Fox Alvarez M.D. [address] [place] [phone] 10/08/2023 9:30 AM CDT Comprehensive Visit Division of Pulmonary Medicine in [place], [place] [address] [place] [phone] Brooke Sanabria M.D. [address] [place] [phone] 10/08/2023 11:50 AM CDT Appointment Department of Laboratory Medicine and Pathology, [facility], in [place], [place] [address] [place] [phone] Fox Alvarez M.D. [address] [place] [phone] Scheduled Orders Name Type Priority Associated Diagnoses [...] Disease (HCC) Expected: 09/30/2023, Expires: 12/19/2024 Research Dispenser Operator office visit (clinic) Outpatient Referral Routine Bronchitis Chronic (HCC) Chronic Obstructive Pulmonary Disease (HCC) Expected: 09/30/2023, Expires: 12/19/2024 documented as of this encounter Visit Diagnoses Diagnosis Bronchitis Chronic (HCC)- Primary Chronic Obstructive Pulmonary Disease (HCC) documented in this encounter
--- OUTSIDE RECORDS SUMMARY | 2023-10-07 08:18 | XMS_ITS | Continuity of Care Document ---
Author Organization [facility] Address [facility] [place] [address] Phone Care Team Providers Care Chief Operator Reformer Name Role Phone Santi Rojas MD Unavailable [...] Diagnoses Date Provider Providers Copied on Encounter [facility], [address] [place], [place] [address], [place], [id number] tel:[phone] [facility] No Information 3 Bob Hancock. [address] [place] [address], [place], [id number]. tel: [phone] [facility], [address] [place], [place] [address], [place], [id number] tel:[phone] [facility] Epigastric Pain (chief complaint)H x H-pylori (chief complaint) Abdominal Pain, EpigastricDyspepsi aChronic Gastritis 1 Bob Hancock. [address] [place] [address], [place], [id number]. tel: [phone] [facility], [address] [place], [place] [address], [place], [id number] tel:[phone] [facility] No Information 1 Bob Hancock. [address] [place] [address], [place], [id number]. tel: [phone] [facility], [address] [place], [place] [address], [place], [id number] tel:[phone] [facility] No Information 1 Bob Hancock. [address] [place] [address], [place], [id number]. tel: [phone] Family History Family Member Type Diagnosis Age At Onset Father Problem (finding) Father Problem (finding) pulmonary emphysema (Ca use Of ) Sister Problem (finding) Lymphoma Payers Payer name Insurance type Covered democrat ID Authorracheal garcia(s) Medicare [id number] Social History Type Description Quantity Date Captured [...]
--- OUTSIDE RECORDS SUMMARY | 2023-10-07 08:18 | XMS_ITS | Clinical Summary ---
Author Organization [facility] Address [address] [place] [address] Care Team Providers Care Tomahawk Weapon System Operator Name Role Phone Unavailable Primary Care Provider Unavailabl e Source Comments Patient records contain information from all sites at [facility]. For routine questions regarding patient records, call [phone] during business hours, M-F 8:00 AM - 5:00 PM Central Time. Record requests for emergency care only can be directed to [phone] at any time.[facility] Encounters Date Type Department Care Team Description 09/19/2023 Orders Only Division of Pulmonary Medicine in [place], [place] [address] [place] [address] Rivera Gil Bronchitis Chronic (HCC) (Primary Dx); Chronic Obstructive Pulmonary Disease (HCC) from Last 3 Months Social History Tobacco Use Types Packs/Day Years Used Date Smoking Tobacco: Never Assessed [facility] Utilities Answer Date Recorded In the past 12 months has [facility] [employer], gas, oil, or water [employer] threatened to shut off services in your [...] your living situation today? I have a [facility] place to live 10/02/2023 Sex and Gender Information Value Date Recorded Sex Assigned at Male 10/02/2023 12:12 PM CDT Gender Identity Male 10/02/2023 12:12 PM CDT Sexual Orientation Straight 10/02/2023 12 :12 PM CDT Plan of Treatment Upcoming Encounters Date Type Department Care Team (Late st Contact Info) Description 10/08/2023 7:30 AM CDT Diagnostic Division of Pulmonary Medicine in [place], [place] [address] [place] [address] Fox Alvarez M.D. [address] [place] [phone] 10/08/2023 9:30 AM CDT Comprehensive Visit Division of Pulmonary Medicine in [place], [place] [address] [place] [address] Brooke Sanabria M.D. [address] [place] [phone] 10/08/2023 11:50 AM CDT Appointment Department of Laboratory Medicine and Pathology, [facility], in [place], [place] [address] [place] [address] Fox Alvarez M.D. [address] [place] [phone] Health Maintenance Due Date Last Done Comments Hepatitis C Screening 1945 Depression Screening (Annual PHQ-2) 03/11/2023 Fall Risk Screen (Annual) 03/11/2023 COVID-19 Vaccine (8 - 2022-2 4 season) 2023 12/25/2022, 10/15/2022, 11/28/2021, Additional history exists Influenza Vaccine (#1) 2023 3, 11/15/2021, 01/11/2021, Additional history exists DTaP,Tdap,and Td Vaccines (3 - Td or Tdap) 10/19/2025 10/20/2015, 01/11/2014, 01/21/2013, Additional history exists Pneumococcal vaccine (65+ years) Completed 10/20/2015, 02/10/2014, 01/11/2014, Additional history exists Zoster Vaccines Completed 12/18/2017, 11/2017, 07/09/2012 Abdominal Aortic Aneurysm (A AA) Screen Discontinued 01/29/2018, 05/03/2013, 02/13/2013 Colonoscopy Discontinued 02/12/2018 Colorectal Cancer Screening Discontinued CT Colonography Discontinued Cologuard Discontinued FIT Discontinued
--- OUTSIDE RECORDS SUMMARY | 2023-10-07 08:19 | XMS_ITS | Clinical Summary ---
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 [address] [facility] [address] [place] [address] Dalton Escobar MD Follow Up (3 month [...] T Respiratory Rate 18 02/12/2023 7:55 AM SCREW EYE ASSEMBLER Oxygen Saturation 95% 07/22/2023 7:55 AM CDT Inhaled Oxygen Concentration - - Weight 89.4 kg (197 lb 3.2 oz) 07/22/2023 7:55 A M CDT Height 185.4 cm (6' 1) 07/22/2023 7:55 AM CDT Body Mass Index 26.02 07/22/2023 7:55 AM CDT Plan of Treatment Upcoming Encounters Date Type Department Care Team (Late st Contact Info) Description 11/18/2023 10:00 AM CDT Office Visit [facility] [address] [facility] [address] [place] [phone] Maurilio Thurman MD [address] [facility] [address] [place], [place] [phone] Health Maintenance Due Date Last Done Comments [...] Code Status Discussion: Reviewed Preferences Care Teams Urogynaecologist Relationship Specialty Start Date End Date Yrody Morin MD [address] [place] [address] PCP - General Internal Medicine 08/17/21 Bennett Ayala COTA [address] [place], [place] [phone] Occupational Therapy 02/14/23
--- OUTSIDE RECORDS SUMMARY | 2023-10-07 08:19 | XMS_ITS | Continuity of Care Document ---
Author Organization [facility] Address [address] [place] [address] Phone Care Team Providers Care Salt Grinder Name Role Phone Minesh Fonseca Unavailable Unavailable Procedures Procedure Date Office/Outpatient Visit,[facility] Advance Directives Directive Yes / No Effective Date File Name No Information Encounters Encounter Description Practice Location Reason(s) For Visit Diagnoses Date Provider Providers Copied on Encounter Office/Outpat ient Visit,, [facility], [address], [place], [place], [id number], [place] tel:[phone] [facility] Other intervertebral disc degeneration, lumbar region 2 Chavo Edge. [facility], [address] [place] [address], [address], [place], [place], [id number] , [place]. tel:[phone] Referring Provider: Arnoldo Meyers, [facility] [address] [place] [address], [address]. tel:[phone] Family History Family Member Type Diagnosis Age At Onset No Information Payers Payer name Insurance type Covered republican ID Authoriza tion(s) [employer] Medicare Gold Choice Sienna LAZO [id number] Social History Type Description Quantity Date [...]
--- OUTSIDE RECORDS SUMMARY | 2023-10-07 08:20 | XMS_ITS | Referral Summary ---
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 TAKE ONE TABLET BY [...] Edema 08/19/2013 Coronary artery disease invo lving [place] coronary artery of [place] heart without angina pectoris 08/19/2013 Overview: cardiac [...] disease, unspecified COPD type 12/25/2016 08/21/2017 [facility] 03/09/2015 08/26/2023 Overview: Status: Closed Aboriginal Education Worker Coordinator: Laurence Steele RN [phone] See Letters for [facility] Care Plan Date: [...] Assigned at Male 03/30/2018 7:28 AM FISH AND WILDLIFE SCIENTIFIC AID Gender Identity Male 03/30/2018 7:28 AM FISH AND WILDLIFE SCIENTIFIC AID Sexual Orientation Straight 02/18/2018 9: 07 AM FISH AND WILDLIFE SCIENTIFIC AID Last Filed Vital Signs Vital Sign Reading [...] on file Medical Devices Implanted Type Area Ic Designer Standard Cells Device Identifier Shelf Expiration Date Model / Serial / Lot Mesh Ventralex Hernia 2.5 [place] [employer] W/Strap [id number] Implanted:Qty: 1 on 04/16/2013 by Hans Schultz MD at [facility] N/A: Umbilical 01/02/2015 [id number] / / [id number] Procedures Procedure Name Priority Date/Time Associated Diagnosis Comments CT CHEST/ABDOMEN/PELVIS W CONTRAST Routine 02/06/2023 10:43 PM [employer] WILDLIFE SCIENTIFIC A[employer] URIC ACID STAT 01/31/2023 8:25 AM [employer]ILDLIFE SCIENTIFIC A[employer] Hematuria, unspecified BASIC METABOLIC PANEL Routine 01/24/2023 5:45 AM [employer]ILDLIFE SCIENT[employer] A[employer] Aftercare following joint replacement surgery COMPREHENSIVE METABOLIC PANEL Routine 09/07/2019 12:48 PM CDT Monoclonal gammopathy Weight loss Fatigue, unspecified type Tarry stools COMPREHEN DRUG ANALYSIS UR Routine 08/17/2019 9:49 AM CDT Chronic pain syndrome LIPID PROFILE STAT 10/31/2018 7:23 AM CDT HTN, goal below 140/90 Hx of coronary artery disease COLONOSCOPY Routine 02/12/2018 9:47 AM [employer]ILDLIFE SCIENT[employer] SPIROMETRY - HIM SCAN Routine 12/20/2017 HEPATITIS C ANTIBODY Routine 07/25/2015 9:30 AM CDT Need for hepatitis C screening test from Last 3 Months or Most Recently Relevant to Health Maintenance Results * Uric acid (01/31/2023 8:25 AM [employer]) Uric Acid 4.0 3.4 - 7.0 mg/dL 01/31/2023 11:18 AM [employer] AND WILDLIFE SCIENT[employer] [facility] Blood BLOOD SPECIMEN / Unknown Client Draw / Unknown 01/31/2023 8:25 AM [employer]ILDLIFE SCIENTIFIC A[employer] 01/31/2023 10:46 AM [employer]IL[employer]IFE SCIENT[employer] A[employer] Jazmin Alvarado MD LAB - BLOOD ORDERABL ES [facility] [address], [address] [place] [phone], [facility] [phone] * Basic metabolic panel (01/24/2023 5:45 AM [employer] WILDLIFE SCIENTIFIC A[employer]) Sodium 138 135 - 145 mmol/L 01/24/2023 10:21 AM [employer]ILDLIFE SCIENTIFIC [employer] [facility] Comment:Reference intervals for this test were updated on 12/04/2022 to more accurately reflect our healthy population. There may be differences in the flagging of prior results with similar values performed with this method. Interpretation of those prior results can be made in the context of the updated reference intervals. Potassium 4.1 3.4 - 5.3 mmol/L 01/24/2023 10:21 AM [employer]ILDLIFE SCIENTIFIC [employer] [facility] Chloride 104 98 - 107 mmol/L 01/24/2023 10:21 AM [employer]ILDLIFE SCIENT[employer] [facility] Carbon Dioxide (CO2) 24 22 - 29 mmol/L 01/24/2023 10:21 AM [employer]IL[employer]IFE [employer]ENT[employer] [facility] Anion Gap 10 7 - 15 mmol/L 01/24/2023 10:21 AM [employer]ENT[employer] [facility] Urea Nitrogen 15.2 8.0 - 23.0 mg/dL 01/24/2023 10:21 AM [employer]IFE [employer] [facility] Creatinine 0.87 0.67 - 1.17 mg/dL 01/24/2023 10:21 AM [employer]IFE [employer] [facility] GFR Estimate 89 >60 mL/min/1. 73m2 01/24/2023 10:21 AM [employer] [facility] Calcium 9.4 8.8 - 10.2 mg/dL 01/24/2023 10:21 AM [employer]ENT[employer] [facility] Glucose 88 70 - 99 mg/dL 01/24/2023 10:21 AM [employer]ILDLIFE SCIENT[employer] [facility] Blood STRUCTURE OF LEFT UPPER LIMB / Unknown Venipuncture / Unknown 01/24/2023 5:45 AM [employer]IFE [employer] A[employer] 01/24/2023 8:02 AM [employer]IFE SCIENT[employer] A[employer] Jazmin Alvarado MD LAB - BLOOD ORDERABL ES [facility] [place] [facility] [address], [address] [place] [address], [facility] [phone] * (ABNORMAL) Comprehensive metabolic panel (09/07/2019 12:48 PM CDT) Sodium 139 133 - 144 mmol/L 09/07/2019 1:20 PM [facility] Potassium 3.6 3.4 - 5.3 mmol/L 09/07/2019 1:20 PM [facility] Chloride 107 94 - 109 mmol/L 09/07/2019 1:20 PM [facility] Carbon Dioxide 26 20 - 32 mmol/L 09/07/2019 1:28 PM [facility] Anion Gap 6 3 - 14 mmol/L 09/07/2019 1:28 PM [facility] Glucose 106(H) 70 - 99 mg/dL 09/07/2019 1:28 PM [facility] Urea Nitrogen 12 7 - 30 mg/dL 09/07/2019 1:28 PM [facility] Creatinine 0.79 0.66 - 1.25 mg/dL 09/07/2019 1:28 PM [facility] GFR Estimate 89 >60 mL/min/{1. 73_m2} 09/07/2019 1:28 PM [facility] Comment: Non GFR Calc Starting 02/25/2018, serum creatinine based estimated GFR (eGFR) will be calculated using the Chronic Kidney Disease Epidemiology Collaboration (CKD-EPI) equation. GFR Estimate If Black >90 >60 mL/min/{1. 73_m2} 09/07/2019 1:28 PM CDT [facility] Comment: GFR Calc Starting 02/25/2018, serum creatinine based estimated GFR (eGFR) will be calculated using the Chronic Kidney Disease Epidemiology Collaboration (CKD-EPI) equation. Calcium 9.0 8.5 - 10.1 mg/dL 09/07/2019 1:28 PM CDT [facility] Bilirubin Total 0.8 0.2 - 1.3 mg/dL 09/07/2019 1:30 PM CDT [facility] Albumin 3.7 3.4 - 5.0 g/dL 09/07/2019 1:30 PM CDT [facility] Protein Total 7.2 6.8 - 8.8 g/dL 09/07/2019 1:30 PM CDT [facility] Alkaline Phosphatase 101 40 - 150 U/L 09/07/2019 1:30 PM CDT [facility] ALT 25 0 - 70 U/L 09/07/2019 1:30 PM CDT [facility] AST 19 0 - 45 U/L 09/07/2019 1:30 PM CDT [facility] Blood specimen (specimen) 09/07/2019 12:48 PM CDT 09/07/2019 12:54 PM CDT Migue Browne MD LAB - BLOOD ORDERA BLES [facility] [address] [place] [address], [facility] [phone] * Drug Screen Comprehensive, Urine w/o Reported Meds (Pain Care Package) (08/17/2019 9:49 AM CDT) Comprehen Drug Analysis UR FINAL 08/20/2019 4:37 PM CDT [facility] Comment: (Note) COMPREHENSIVE DRUG ANALYSIS,UR Test [...] consultation, please call . Analysis performed by [employer] [place] [address] Urine specimen (specimen) 08/17/2019 9:49 AM CDT 08/17/2019 9:50 AM CDT Wesley Dugan MD LAB - URINE ORDERABL ES Performing Organization Address [facility] Co de Phone Number [facility] [id number] [place] [address] * (ABNORMAL) Lipid Profile (10/31/2018 7:23 AM CDT) Cholesterol 136 <200 mg/dL 10/31/2018 7:55 AM CDT [facility] Triglycerides 113 <150 mg/dL 10/31/2018 7:55 AM CDT [facility] Comment:Fasting specimen HDL Cholesterol 36(L) >39 mg/dL 9 7:58 AM CDT [facility] LDL Cholesterol Calculated 77 <100 mg/dL 10/31/2018 7:58 AM CDT [facility] Comment:Desirable: <100 mg/d l Non HDL Cholesterol 100 <130 mg/dL 10/31/2018 7:58 AM CDT [facility] Blood specimen (specimen) 10/31/2018 7:23 AM CDT 10/31/2018 7:29 AM CDT Miguel Culver PA-C LAB - BLOOD ORDERABL ES [facility] [address] [place] [address], [facility] [phone] [facility] [address] [place] [address], [facility] [phone] * COLONOSCOPY (02/12/2018 9:47 AM [employer] WILDLIFE SCIENTIFIC AID) COLONOSCOPY [facility] Patient Name: Butch Nieves ?Procedure Date: [...] # [id number], ?[place] # [id number], SN # [id number] was introduced through ?the anus and advanced [...] Procedure Code(s): ? --- Professional --- ? 00534, Colonoscopy, flexible; with removal of tumor(s), polyp(s), or ? other lesion(s) by snare technique Diagnosis Code(s): ? --- Professional --- ? D12.3, Benign neoplasm of transverse colon (hepatic flexure or splenic ? flexure) ? D12.2, Benign neoplasm of ascending colon CPT copyright 2017 [employer]. All rights reserved. The codes documented in this report are preliminary and upon client solutions director review may be revised to meet current compliance requirements. Electronically signed by Joe Dent MD __ Joe Dent MD 02/12/2018 10:36:09 AM I was physically present for the entire viewing portion of the exam. Joe Dent MD Number of Addenda: 0 Note Initiated On: 02/12/2018 9:47 AM MRN: ?[id number] Procedure Date: ? 02/12/2018 9:47:22 AM Scope Withdrawal Time: 0 hours 6 minutes 17 seconds Total Procedure Duration: 0 hours 14 minutes 28 seconds Estimated Blood Loss: ? Scope In: 10:18:46 AM Scope Out: 10:33:14 AM RADIOLOGY RESULTS 02/12/2018 9:47 AM [employer] A[employer] Joe Dent MD PROCEDURES RADIOLOGY RESULTS * Spirometry - HIM Scan (12/20/2017) Narrative Arin Berkowitz - 12/20/2017 [facility]-Progress note Provider Outside PFT ORDERABLES * Hepatitis C antibody (07/25/2015 9:30 AM CDT) Hepatitis C Antibody Nonreactive Assay performance characteristics have not been established for newborns, infants, and children NR [facility] Blood specimen (specimen) 07/25/2015 9:30 AM CDT 07/25/2015 9:31 AM CDT Wesley Dugan MD LAB - BLOOD ORDERABL ES [facility] [address] [place] [address] from Last 3 Months or Most Recently Relevant to Health Maintenance Advance Directives For more information, please contact: [phone] Documents on File Type Date Recorded Patient Naturalization Examiner Expl anation Advance Directives and Living Will 11/15/2017 2:53 PM Health Care Directiv e 11/12/17 * Full Code (Latest Code Status on File) Date Activated Date Inactivated Comments 03/06/2015 9:26 AM 04/01/2018 1:20 PM * Full Code Date Activated Date Inactivated Comments 03/05/2015 6:19 PM 03/06/2015 9:26 AM Care Teams Cloth Cutter Relationship Specialty [place] [address] [place] [address] PCP - General Family Practice 03/14/21
--- OUTSIDE RECORDS SUMMARY | 2023-10-07 08:20 | XMS_ITS | Encounter Summary ---
Author Organization [facility] Address [address] [place] [address]. [place] [address] Care Team Providers Care Environmental Health And Safety Leader Name Role Phone Wesley Dugan MD Primary Care Provider Wesley Dugan MD Unavailable [phone] Nela Sheth RN Unavailable Unavailable Ella Matias PA-C Unavailable Santi Heller MD Unavailable Aashish Leone MD Unavailable Unavail able Tato Mallory MD Unavailable [phone] Chirag Taylor MD Primary Care Provider + Miguel Culver PA-C Unavailable Wesley Dugan MD Unavailable [phone] Reason for Visit * Reason Comments Medication Refill Encounter Details Date Type Department Care Team (Late st Contact Info) Description [facility] [address] [place] [phone] [place] [id number] [place] [address] Medication Refill Social History Tobacco Use Types Packs/Day Years Used Date Smoking Tobacco: Former Cigarettes 0 1958 - 2016 Smokeless Tobacco: Never Alcohol Use Standard Drinks/Week Comments Not Currently 0 (1 standard drink = 0.6 oz pur e alcohol) PHQ-2 Answer Date Recorded PHQ-2 Score 2 10/16/2019 Sex and Gender Information Value Date Recorded Sex Assigned at Male 03/30/2018 7:28 AM ASSISTANT THERAPY AIDE Gender Identity Male 03/30/2018 7:28 AM ASSISTANT THERAPY AIDE Sexual Orientation Straight 02/18/2018 9: 07 AM ASSISTANT THERAPY AIDE documented as of this encounter Miscellaneous Notes * Telephone Encounter - Chen Ruiz RN - 12/15/2019 1:04 PM CDT Routing refill request to provider for review/approval because: Drug not on the [facility] refill protocol Chen Ruiz RN [facility] -- Triage Nurse documented in this encounter Plan of Treatment Not on file documented as of this encounter Visit Diagnoses Diagnosis Peripheral polyneuropathy Unspecified hereditary and idiopathic peripheral neuropathy Chronic pain syndrome documented in this encounter Additional Health Concerns Assessment Noted Time PHQ-9 Depression Total Score: 7 10/16/19 20 7:11 AM CDT documented as of this encounter Care Teams Environmental Health And Safety Leader Relationship Specialty [place] [address] [place] [address] PCP - General Family Practice 03/14/21 Chirag Taylor MD [address] [place] [address] PCP - General 03/15/20 03/13/21 [place] [address] [place] [address] Assigned PCP 09/19/14 02/23/22 Nela Sheth RN Personal Advocate & Liaison (PAL) Family Practice 10/13/19 03/14/20 Ella Matias PA-C [address] [place] [address] Assigned Cancer Care Provider 01/01/20 03/18/21 Santi Heller MD [address] [facility] [address] [place] [address] Assigned Surgical Provider 01/01/2003/01 Aashish Leone MD Assigned Heart and Vascular Provider 01/01/20 05/07/20 [place] [address] [facility] [address] [place] [address] Assigned Musculoskeletal Provider 01/01/20 07/23/20 Miguel Culver PA-C [address] [place] [address] Assigned Heart and Vascular Provider 05/25/20 04/29/21 [place] [address] [place] [address] Assigned PCP 05/05/22 10/19/22 documented as of this encounter
--- OUTSIDE RECORDS SUMMARY | 2023-10-07 08:20 | XMS_ITS | Encounter Summary ---
Author Organization [place] Address [address] [place] [address]. [place] [address] Care Team Providers Care Predator Control Trapper Name Role Phone Wesley Dugan MD Primary Care Provider Wesley Dugan MD Unavailable [phone] Nela Sheth RN Unavailable Unavailable Ella Matias PA-C Unavailable Santi Heller MD Unavailable [phone] Aashish Leone MD Unavailable Unavail able Tato Mallory MD Unavailable Chirag Taylor MD Primary Care Provider + Miguel Culver PA-C Unavailable Wesley Dugan MD Unavailable [phone] Reason for Visit * Reason Comments Medication Refill Encounter Details Date Type Department Care Team (Late st Contact Info) Description [facility] [address] [place] [phone] [place]ug[place] [address] [place] [address] Medication Refill Social History Tobacco Use Types Packs/Day Years Used Date Smoking Tobacco: Former Cigarettes 0 1958 - 2016 Smokeless Tobacco: Never Alcohol Use Standard Drinks/Week Comments Not Currently 0 (1 standard drink = 0.6 oz pur e alcohol) PHQ-2 Answer Date Recorded PHQ-2 Score 2 10/16/2019 Sex and Gender Information Value Date Recorded Sex Assigned at Male 03/30/2018 7:28 AM VACUUM EVAPORATION OPERATOR Gender Identity Male 03/30/2018 7:28 AM VACUUM EVAPORATION OPERATOR Sexual Orientation Straight 02/18/2018 9: 07 AM VACUUM EVAPORATION OPERATOR documented as of this encounter Miscellaneous Notes * Telephone Encounter - Brooklyn Katz RN - 12/15/2019 9:15 AM CDT Prescription approved per [facility] Refill Protocol. Brooklyn Katz RN on 12/15/2019 at 9:15 AM documented in this encounter Plan of Treatment Not on file documented as of this encounter Visit Diagnoses Diagnosis Panlobular emphysema (H) Other emphysema documented in this encounter Additional Health Concerns Assessment Noted Time PHQ-9 Depression Total Score: 7 10/16/19 20 7:11 AM CDT documented as of this encounter Care Teams Predator Control Trapper Relationship Specialty [place] [address] [place], [place] [id number] PCP - General Family Practice 03/14/21 Chirag Taylor MD [address] [place] [address] PCP - General 03/15/20 03/13/21 [place] [address] [place] [address] Assigned PCP 09/19/14 02/23/22 Nela Sheth RN Personal Advocate & Liaison (PAL) Family Practice 10/13/19 03/14/20 Ella Matias, NIRC [address] [place] [address] Assigned Cancer Care Provider 01/01/20 03/18/21 Santi Heller MD [address] [facility] [address] [place] [address] Assigned Surgical Provider 01/01/2003/01 Aashish Leone MD Assigned Heart and Vascular Provider 01/01/20 05/07/20 [place] [address] [facility] [address] [place], [place] [address] Assigned Musculoskeletal Provider 01/01/20 07/23/20 Miguel Culver PA-C [address] [place] [address] Assigned Heart and Vascular Provider 05/25/20 04/29/21 [place] [address] [place] [address] Assigned PCP 05/05/22 10/19/22 documented as of this encounter
--- OUTSIDE RECORDS SUMMARY | 2023-10-07 08:20 | XMS_ITS | Encounter Summary ---
Author Organization [facility] Address [address] [place] [address]. [place] [address] Care Team Providers Care Maint Mechanic Name Role Phone Wesley Dugan MD Primary Care Provider Wesley Dugan MD Unavailable [phone] Nela Sheth RN Unavailable Unavailable Ella Matias PA-C Unavailable Santi Heller MD Unavailable Aashish Leone MD Unavailable Unavail able Tato Mallory MD Unavailable [phone] Chirag Taylor MD Primary Care Provider + Miguel Culver PA-C Unavailable [phone] Wesley Dugan MD Unavailable [phone] Reason for Visit * Reason Comments Medication Refill Encounter Details Date Type Department Care Team (Late st Contact Info) Description 03/10/2020 Refill [facility] [address] [place] [phone] Wesley Dugan [place] [address] [place] [address] Medication Refill Social History Tobacco Use Types Packs/Day Years Used Date Smoking Tobacco: Former Cigarettes 0 1958 - 2016 Smokeless Tobacco: Never Alcohol Use Standard Drinks/Week Comments Not Currently 0 (1 standard drink = 0.6 oz pur e alcohol) PHQ-2 Answer Date Recorded PHQ-2 Score 2 10/16/2019 Sex and Gender Information Value Date Recorded Sex Assigned at Male 03/30/2018 7:28 AM CHIEF ACCOUNTANT Gender Identity Male 03/30/2018 7:28 AM CHIEF ACCOUNTANT Sexual Orientation Straight 02/18/2018 9: 07 AM CHIEF ACCOUNTANT documented as of this encounter Miscellaneous Notes * Telephone Encounter - Nela Sheth RN - 03/15/2020 3:34 PM CST PCP changes to Dr. Lane Taylor @ [facility] in [place], [place]. Pt's future rx refills to be obtained from pt's PCP for insurance purposes. Nela Sheth, Registered Nurse, Patient Advocate [facility] F ACCOUNTANT * Telephone Encounter - Wesley Dugan MD - 03/14/2020 5:12 PM CST Due to insurance, changed to Sienna Taylor [facility] Please change PCP Refills to new PCP Wesley Dugan MD F ACCOUNTANT * Telephone Encounter - Jazmin Rothman RN - 03/14/2020 8:07 AM CST Routing refill request to provider for review/approval because: Drug not active on patient's medication list Not on med list Jazmin Rothman RN, BSN Message handled by CLINIC NURSE. F ACCOUNTANT documented in this encounter Plan of Treatment Not on file documented as of this encounter Visit Diagnoses Not on filedocumented in this encounter Additional Health Concerns Assessment Noted Time PHQ-9 Depression Total Score: 7 10/16/19 20 7:11 AM CDT documented as of this encounter Care Teams Maint Mechanic Relationship Specialty [place] [address] [place] [address] PCP - General Family Practice 03/14/21 [place] [address] [address] PCP - General 03/15/20 03/13/21 [place] [address] [place] [address] Assigned PCP 09/19/14 02/23/22 Nela Sheth RN Personal Advocate & Liaison (PAL) Family Practice 10/13/19 03/14/20 Ella Matias PA-C [address] [place] [address] Assigned Cancer Care Provider 01/01/20 03/18/21 Santi Heller MD [address] [facility] [address] [address] Assigned Surgical Provider 01/01/2003/01 Aashish Leone MD Assigned Heart and Vascular Provider 01/01/20 05/07/20 [place] [address] [address] Assigned Musculoskeletal Provider 01/01/20 07/23/20 Miguel Culver PA-C [address] [facility] [address] [place], [place] [address] Assigned Heart and Vascular Provider 05/25/20 04/29/21 [place] [address] [place] [address] Assigned PCP 05/05/22 10/19/22 documented as of this encounter
--- OUTSIDE RECORDS SUMMARY | 2023-10-07 08:20 | XMS_ITS | Encounter Summary ---
Author Organization [place] Address [address] [place] [address]. [place] [address] Care Team Providers Care Straddle Buggy Operator Name Role Phone Wesley Dugan MD Primary Care Provider [phone] Wesley Dugan MD Unavailable [phone] Nela Sheth RN Unavailable Unavailable Ella Matias PA-C Unavailable Santi Heller MD Unavailable Aashish Leone MD Unavailable Unavail able Tato Mallory MD Unavailable [phone] Chirag Taylor MD Primary Care Provider + Miguel Culver PA-C Unavailable Wesley Dugan MD Unavailable [phone] Reason for Visit * Reason Onset Date Comments Medication Refill Refill Request 01/12/2020 Encounter Details Date Type Department Care Team (Late st Contact Info) Description 01/11/2020 Refill [facility] [id number] [place] [address] [place] [address] [place] [address] Medication Refill; Refill Request Social [...] Sex Assigned at Male 03/30/2018 7:28 AM CONICAL MIXER Gender Identity Male 03/30/2018 7:28 AM CONICAL MIXER Sexual Orientation Straight 02/18/2018 9: 07 AM CONICAL MIXER COVID-19 Exposure Response Date Recorded In the last month, have you been in contact with someone who was confirmed or suspected to have Coronavirus / COVID-19? No / Unsure 01/07/2020 7:50 AM CDT documented as of this encounter Miscellaneous Notes * Telephone Encounter - Wesley Dugan MD - 01/11/2020 12:03 PM CST Sent Needs visit virtual Dec Wesley Dugan MD CAL MIXER * Telephone Encounter - Brooklyn Katz RN - 01/11/2020 10:23 AM CONICAL MIXER Routing refill request to provider for review/approval because: Drug not on the [facility] refill protocol Brooklyn Katz RN on 01/11/2020 at 10:23 AM CAL MIXER documented in this encounter Plan of Treatment Not on file documented as of this encounter Visit Diagnoses Diagnosis Peripheral polyneuropathy Unspecified hereditary and idiopathic peripheral neuropathy Chronic pain syndrome documented in this encounter Additional Health Concerns Assessment Noted Time PHQ-9 Depression Total Score: 7 10/16/19 20 7:11 AM CDT documented as of this encounter Care Teams Straddle Buggy Operator Relationship Specialty [place] [address] [place] [address] PCP - General Family Practice 03/14/21 [place] [address] [address] PCP - General 03/15/20 03/13/21 [place] [address] [place] [address] Assigned PCP 09/19/14 02/23/22 Nela Sheth, RN Personal Advocate & Liaison (PAL) Family Practice 10/13/19 03/14/20 Ella Matias PA-C 909 [place] [address] Assigned Cancer Care Provider 01/01/20 03/18/21 Santi Heller MD 6363 [facility] 500 [place] [address] Assigned Surgical Provider 01/01/2003/01 Aashish Leone MD Assigned Heart and Vascular Provider 01/01/20 05/07/20 [place] [address] [facility] [address] [place] [address] Assigned Musculoskeletal Provider 01/01/20 07/23/20 Miguel Culver PA-C 6405 [place] [address] Assigned Heart and Vascular Provider 05/25/20 04/29/21 [place] [address] [place] [address] Assigned PCP 05/05/22 10/19/22 documented as of this encounter
--- OUTSIDE RECORDS SUMMARY | 2023-10-07 08:20 | XMS_ITS | Encounter Summary ---
Author Organization [place] Address [address] [place] [address] Care Team Providers Care Personnel Assistant Name Role Phone Wesley Dugan MD Primary Care Provider Wesley Dugan MD Unavailable [phone] Ella Matias PA-C Unavailable Santi Heller MD Unavailable Tato Mallory MD Unavailable Chirag Taylor MD Primary Care Provider + Miguel Culver PA-C Unavailable Wesley Dugan MD Unavailable [phone] Encounter Details Date Type Department Care [...] Sex Assigned at Male 03/30/2018 7:28 AM RECORDING STUDIO INTERNSHIP Gender Identity Male 03/30/2018 7:28 AM RECORDING STUDIO INTERNSHIP Sexual Orientation Straight 02/18/2018 9: 07 AM RECORDING STUDIO INTERNSHIP documented as of this encounter Plan of Treatment Not on file documented as of this encounter Visit Diagnoses Not on filedocumented in this encounter Additional Health Concerns Assessment Noted Time PHQ-9 Depression Total Score: 7 10/16/19 20 7:11 AM CDT documented as of this encounter Care Teams Personnel Assistant Relationship Specialty [place] [address] [place] [address] PCP - General Family Practice 03/14/21 [place] [address] [address] PCP - General 03/15/20 03/13/21 [place] [address] [place] [address] Assigned PCP 09/19/14 02/23/22 Ella Matias PA-C 909 [place], [place] [address] Assigned Cancer Care Provider 01/01/20 03/18/21 Santi Heller MD [address] [address] Assigned Surgical Provider 01/01/2003/01 [place] [address] [address] Assigned Musculoskeletal Provider 01/01/20 07/23/20 Miguel Culver PA-C 6405 [place] [address] Assigned Heart and Vascular Provider 05/25/20 04/29/21 [place] [address] [place] [address] Assigned PCP 05/05/22 10/19/22 documented as of this encounter
--- OUTSIDE RECORDS SUMMARY | 2023-10-07 08:20 | XMS_ITS | Encounter Summary ---
Author Organization [place] Address [address] [place] [address]. [place] [address] Care Team Providers Care Glass Laminating Operator Name Role Phone Wesley Dugan MD Primary Care Provider [phone] Wesley Dugan MD Unavailable [phone] Nela Sheth RN Unavailable Unavailable Ella Matias PA-C Unavailable Santi Heller MD Unavailable [phone] Aashish Leone MD Unavailable Unavail able Tato Mallory MD Unavailable Chirag Taylor MD Primary Care Provider + Miguel Culver PA-C Unavailable [phone] Wesley Dugan MD Unavailable [phone] Reason for Visit * Reason Comments Medication Refill Encounter Details Date Type Department Care Team (Late st Contact Info) Description 01/24/2020 Refill [facility] [address] [place] [address] Wesley [place]ug[place] [address] [place] [address] Medication Refill Social History Tobacco Use Types Packs/Day Years Used Date Smoking Tobacco: Former Cigarettes 0 1958 - 2016 Smokeless Tobacco: Never Alcohol Use Standard Drinks/Week Comments Not Currently 0 (1 standard drink = 0.6 oz pur e alcohol) PHQ-2 Answer Date Recorded PHQ-2 Score 2 10/16/2019 Sex and Gender Information Value Date Recorded Sex Assigned at Male 03/30/2018 7:28 AM MANAGEMENT DEVELOPMENT SPECIALIST Gender Identity Male 03/30/2018 7:28 AM MANAGEMENT DEVELOPMENT SPECIALIST Sexual Orientation Straight 02/18/2018 9: 07 AM MANAGEMENT DEVELOPMENT SPECIALIST COVID-19 Exposure Response Date Recorded In the last month, have you been in contact with someone who was confirmed or suspected to have Coronavirus / COVID-19? No / Unsure 01/15/2020 9:30 AM MANAGEMENT DEVELOPMENT SPECIALIST documented as of this encounter Miscellaneous Notes * Telephone Encounter - Amarilis Noble RN - 01/26/2020 1:38 PM CST Routing refill request to provider for review/approval because: Allergy warning Amarilis Noble RN, BSN GEMENT DEVELOPMENT SPECIALIST documented in this encounter Plan of [...] documented as of this encounter Care Teams Glass Laminating Operator Relationship Specialty [place] [address] [place] [address] PCP - General Family Practice 03/14/21 [place] [address] [address] PCP - General 03/15/20 03/13/21 [place] [address] [place] [address] Assigned PCP 09/19/14 02/23/22 Nela Sheth, RN Personal Advocate & Liaison (PAL) Family Practice 10/13/19 03/14/20 Ella Matias PA-C 909 [place] [address] Assigned Cancer Care Provider 01/01/20 03/18/21 Santi Heller MD 6363 [facility] 500 [place], [place] [address] Assigned Surgical Provider 01/01/2003/01 Aashish Leone MD Assigned Heart and Vascular Provider 01/01/20 05/07/20 [place] [address] [facility] 300 [place] [address] Assigned Musculoskeletal Provider 01/01/20 07/23/20 Miguel Culver PA-C [address] [facility] [place] [address] Assigned Heart and Vascular Provider 05/25/20 04/29/21 [place] [address] [place] [address] Assigned PCP 05/05/22 10/19/22 documented as of this encounter
--- OUTSIDE RECORDS SUMMARY | 2023-10-07 08:20 | XMS_ITS | Encounter Summary ---
Author Organization [place] Address [address] [place] [address] Care Team Providers Care Motor Patrol Operator Name Role Phone Wesley Dugan MD Primary Care Provider [phone] Wesley Dugan MD Unavailable [phone] Wesley Dugan MD Unavailable [phone] Encounter Details Date Type Department Care Team (Late st Contact Info) Description 11/20/2021 [facility] [address] [address] Yael Bardales MA Social History [...] Sex Assigned at Male 03/30/2018 7:28 AM MANUFACTURING MILLWRIGHT Gender Identity Male 03/30/2018 7:28 AM MANUFACTURING MILLWRIGHT Sexual Orientation Straight 02/18/2018 9: 07 AM MANUFACTURING MILLWRIGHT documented as of this encounter Plan of Treatment Not on file documented as of this encounter Visit Diagnoses Not on filedocumented in this encounter Additional Health Concerns Assessment Noted Time PHQ-9 Depression Total Score: 7 10/16/19 20 7:11 AM CDT documented as of this encounter Care Teams Motor Patrol Operator Relationship Specialty [place] [address] [place] [address] PCP - General Family Practice 03/14/21 [place] [address] [place] [address] Assigned PCP 09/19/14 02/23/22 [place] [address] [place] [address] Assigned PCP 05/05/22 10/19/22 documented as of this encounter
--- OUTSIDE RECORDS SUMMARY | 2023-10-07 08:20 | XMS_ITS | Encounter Summary ---
Author Organization [place] Address [address] [place] [address]. [place] [address] Care Team Providers Care Rack Puller Name Role Phone Wesley Dugan MD Primary Care Provider Wesley Dugan MD Unavailable [phone] Nela Sheth RN Unavailable Unavailable Ella Matias PA-C Unavailable Santi Heller MD Unavailable [phone] Aashish Leoen MD Unavailable Unavail able Tato Mallory MD Unavailable Chirag Taylor MD Primary Care Provider + Miguel Culver PA-C Unavailable [phone] Wesley Dugan MD Unavailable [phone] Reason for Visit * Reason Comments Medication Refill Encounter Details Date Type Department Care Team (Late st Contact Info) Description [facility] [address] [place] [address] [place] [address] [place] [address] Medication Refill Social History Tobacco Use Types Packs/Day Years Used Date Smoking Tobacco: Former Cigarettes 0 1958 - 2016 Smokeless Tobacco: Never Alcohol Use Standard Drinks/Week Comments Not Currently 0 (1 standard drink = 0.6 oz pur e alcohol) PHQ-2 Answer Date Recorded PHQ-2 Score 2 10/16/2019 Sex and Gender Information Value Date Recorded Sex Assigned at Male 03/30/2018 7:28 AM DEHYDRATION PLANT OPERATOR Gender Identity Male 03/30/2018 7:28 AM DEHYDRATION PLANT OPERATOR Sexual Orientation Straight 02/18/2018 9: 07 AM DEHYDRATION PLANT OPERATOR documented as of this encounter Miscellaneous Notes * Telephone Encounter - Naida Vasquez RN - 12/11/2019 11:27 AM CDT Prescription approved per [facility] Refill Protocol. Naida Vasquez RN Flex documented in this encounter Plan of Treatment Not on file documented as of this encounter Visit Diagnoses Diagnosis Panlobular emphysema (H) Other emphysema documented in this encounter Additional Health Concerns Assessment Noted Time PHQ-9 Depression Total Score: 7 10/16/19 20 7:11 AM CDT documented as of this encounter Care Teams Rack Puller Relationship Specialty [place] [address] [place], [place] [id number] PCP - General Family Practice 03/14/21 [place] [address] [address] PCP - General 03/15/20 03/13/21 [place] [address] [place] [address] Assigned PCP 09/19/14 02/23/22 Nela Sheth RN Personal Advocate & Liaison (PAL) Family Practice 10/13/19 03/14/20 Ella Matisa, PA-C [address] [place] [address] Assigned Cancer Care Provider 01/01/20 03/18/21 Santi Heller MD 6363 [facility] 500 [place] [address] Assigned Surgical Provider 01/01/2003/01 Aashish Leone MD Assigned Heart and Vascular Provider 01/01/20 05/07/20 [place] [address] [facility] 300 [place], [place] [address] Assigned Musculoskeletal Provider 01/01/20 07/23/20 Miguel Culver PA-C 6405 [place], [place] [address] Assigned Heart and Vascular Provider 05/25/20 04/29/21 [place] [address] [place], [place] [address] Assigned PCP 05/05/22 10/19/22 documented as of this encounter
--- OUTSIDE RECORDS SUMMARY | 2023-10-07 08:20 | XMS_ITS | Encounter Summary ---
Author Organization [place] Address [address] [place] [address]. [place] [address] Care Team Providers Care Sill Worker Name Role Phone Wesley Dugan MD Primary Care Provider Wesley Dugan MD Unavailable [phone] Nela Sheth RN Unavailable Unavailable Ella Matias PA-C Unavailable Santi Heller MD Unavailable [phone] Aashish Leone MD Unavailable Unavail able Tato Mallory MD Unavailable Chirag Taylor MD Primary Care Provider + Miguel Culver PA-C Unavailable Wesley Dugan MD Unavailable [phone] Reason for Visit * Reason Comments Medication Refill Encounter Details Date Type Department Care Team (Late st Contact Info) Description 02/21/2020 Refill [facility] [address] [place] [address] Wesley Dugan [place] [address] [place] [address] Medication Refill Social History Tobacco Use Types Packs/Day Years Used Date Smoking Tobacco: Former Cigarettes 0 1958 - 2016 Smokeless Tobacco: Never Alcohol Use Standard Drinks/Week Comments Not Currently 0 (1 standard drink = 0.6 oz pur e alcohol) PHQ-2 Answer Date Recorded PHQ-2 Score 2 10/16/2019 Sex and Gender Information Value Date Recorded Sex Assigned at Male 03/30/2018 7:28 AM DOG RACES MANAGER Gender Identity Male 03/30/2018 7:28 AM DOG RACES MANAGER Sexual Orientation Straight 02/18/2018 9: 07 AM DOG RACES MANAGER documented as of this encounter Miscellaneous Notes * Telephone Encounter - Charlotte Castro RN - 02/23/2020 2:24 PM CST Medication refilled per [facility] protocol Charlotte Castro RN RACES MANAGER documented in this encounter Plan of Treatment Not on file documented as of this encounter Visit Diagnoses Diagnosis Heartburn documented in this encounter Additional Health Concerns Assessment Noted Time PHQ-9 Depression Total Score: 7 10/16/19 20 7:11 AM CDT documented as of this encounter Care Teams Sill Worker Relationship Specialty [place] [address] [place] [address] PCP - General Family Practice 03/14/21 Chirag Taylor MD [address] [place] [address] PCP - General 03/15/20 03/13/21 [place] [address] [place] [address] Assigned PCP 09/19/14 02/23/22 Nela Sheth RN Personal Advocate & Liaison (PAL) Family Practice 10/13/19 03/14/20 Ella Matias, NIRC [address] [place] [address] Assigned Cancer Care Provider 01/01/20 03/18/21 Santi Heller MD 6363 [facility] 500 [place] [address] Assigned Surgical Provider 01/01/2003/01 Aashish Leone MD Assigned Heart and Vascular Provider 01/01/20 05/07/20 Tato Mallory MD [facility] 300 [place], [place] [address] Assigned Musculoskeletal Provider 01/01/20 07/23/20 Miguel Culver PA-C 6405 [facility] [place] [address] Assigned Heart and Vascular Provider 05/25/20 04/29/21 [place] [address] [place], [place] [address] Assigned PCP 05/05/22 10/19/22 documented as of this encounter
--- OUTSIDE RECORDS SUMMARY | 2023-10-07 08:20 | XMS_ITS | Encounter Summary ---
Author Organization [place] Address [address] [place] [address]. [place] [address] Care Team Providers Care Hospice Bereavement Coordinator Name Role Phone Wesley Dugan MD Primary Care Provider Wesley Dugan MD Unavailable [phone] Nela Sheth RN Unavailable Unavailable Ella Matias PA-C Unavailable Santi Heller MD Unavailable [phone] Aashish Leone MD Unavailable Unavail able Tato Mallory MD Unavailable Chirag Taylor MD Primary Care Provider + Miguel Culver PA-C Unavailable Wesley Dugan MD Unavailable [phone] Reason for Visit * Reason Comments Medication Refill Encounter Details Date Type Department Care Team (Late st Contact Info) Description 08/26/2019 Refill [facility] [address] [place] [phone] Wesley Dugan [place] [address] [place] [address] Medication Refill Social History Tobacco Use Types Packs/Day Years Used Date Smoking Tobacco: Former Cigarettes 0 1958 - 2016 Smokeless Tobacco: Never Alcohol Use Standard Drinks/Week Comments Not Currently 0 (1 standard drink = 0.6 oz pur e alcohol) PHQ-2 Answer Date Recorded PHQ-2 Score 0 08/17/2019 Sex and Gender Information Value Date Recorded Sex Assigned at Male 03/30/2018 7:28 AM SEWING MACHINE OPERATOR PAPER BAGS Gender Identity Male 03/30/2018 7:28 AM SEWING MACHINE OPERATOR PAPER BAGS Sexual Orientation Straight 02/18/2018 9: 07 AM SEWING MACHINE OPERATOR PAPER BAGS COVID-19 Exposure Response Date Recorded In the last month, have you been in contact with someone who was confirmed or suspected to have Coronavirus / COVID-19? No / Unsure 08/28/2019 8:30 AM CDT documented as of this encounter Miscellaneous Notes * Telephone Encounter - Charlotte Castro RN - 08/26/2019 1:13 PM CDT Medication [place]illed [place] [facility] [place] Charlotte Castro RN documented in this encounter Plan of Treatment Not on file documented as of this encounter Visit Diagnoses Diagnosis Hx of coronary artery disease Personal history of other diseases of circulatory system documented in this encounter Additional Health Concerns Assessment Noted Time PHQ-9 Depression Total Score: 8 08/15/19 7:03 AM CDT documented as of this encounter Care Teams Hospice Bereavement Coordinator Relationship Specialty [place] [address] [place] [address] PCP - General Family Practice 03/14/21 Chirag Taylor MD [address] [place] [address] PCP - General 03/15/20 03/13/21 [place] [address] [place] [address] Assigned PCP 09/19/14 02/23/22 Satilla, Nela A, RN Personal Advocate & Liaison (PAL) Family Practice 10/13/19 03/14/20 Ella Matias PA-C 909 [place] [address] Assigned Cancer Care Provider 01/01/20 03/18/21 Santi Heller MD 6363 [facility] 500 [place] [address] Assigned Surgical Provider 01/01/2003/01 Aashish Leone MD Assigned Heart and Vascular Provider 01/01/20 05/07/20 [place] [address] [facility] 300 [place] [address] Assigned Musculoskeletal Provider 01/01/20 07/23/20 Miguel Culver PA-C [address] [facility] [place] [address] Assigned Heart and Vascular Provider 05/25/20 04/29/21 [place] [address] [place], [place] [address] Assigned PCP 05/05/22 10/19/22 documented as of this encounter
--- OUTSIDE RECORDS SUMMARY | 2023-10-07 08:20 | XMS_ITS | Encounter Summary ---
Author Organization [place] Address [facility] 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 Please call Butch at: [phone]) Social History Tobacco Use Types Packs/Day Years Used Date Smoking Tobacco: Former Cigarettes 0 1958 - 2016 Smokeless Tobacco: Never Alcohol Use Standard Drinks/Week Comments Not Currently 0 (1 standard drink = 0.6 oz pur e alcohol) PHQ-2 Answer Date Recorded PHQ-2 Score 2 10/16/2019 Sex and Gender Information Value Date Recorded Sex Assigned at Male 03/30/2018 7:28 AM INSTRUCTIONAL TECHNOLOGY DIRECTOR Gender Identity Male 03/30/2018 7:28 AM INSTRUCTIONAL TECHNOLOGY DIRECTOR Sexual Orientation Straight 02/18/2018 9: 07 AM INSTRUCTIONAL TECHNOLOGY DIRECTOR COVID-19 Exposure Response Date Recorded In the last month, have you been in contact with someone who was confirmed or suspected to have Coronavirus / COVID-19? 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 Please call Butch at: Action Taken: Message routed to: [facility] Clinical Pool Travel Screening: Not Applicable documented in this encounter Plan of Treatment Not on file documented as of this encounter Visit Diagnoses Not on filedocumented in this encounter Additional Health Concerns Assessment Noted Time PHQ-9 Depression Total Score: 8 08/15/19 20 7:03 AM CDT documented as of this encounter Care Teams Washer Machine Relationship Specialty [place] [address] [place] [address] PCP - General Family Practice 03/14/21 [place] [address] [address] PCP - General 03/15/20 03/13/21 [place] [address] [place] [address] Assigned PCP 09/19/14 02/23/22 Nela Sheth, JARON Personal Advocate & Liaison (PAL) Family Practice 10/13/19 03/14/20 Ella Matias PA-C [address] [place] [id number] Assigned Cancer Care Provider 01/01/20 03/18/21 Santi Heller MD [address] [address] Assigned Surgical Provider 01/01/2003/01 Aashish Leone MD Assigned Heart and Vascular Provider 01/01/20 05/07/20 Tato Mallory MD [address] [place] [address] Assigned Musculoskeletal Provider 01/01/20 07/23/20 Miguel Culver PA-C 6405 [place] [address] Assigned Heart and Vascular Provider 05/25/20 04/29/21 [place] [address] [place] [address] Assigned PCP 05/05/22 10/19/22 documented as of this encounter
--- OUTSIDE RECORDS SUMMARY | 2023-10-07 08:20 | XMS_ITS | Clinical Summary ---
Author Organization [place] Address [address] [place] [address] Care Team Providers Care Machine Wedger Name Role Phone Wesley Dugan MD Primary Care Provider [phone] Allergies Active Allergy Reactions Criticality Noted Date [...] MG sublingual tabletIndications:C oronary artery disease involving [place] coronary artery of [place] heart without angina pectoris For chest pain [...] Active oxyCODONE (ROXICODONE) 5 MG tabletIndications:P eripheral polyneuropathy,Middleware Architect lida pain syndrome TAKE ONE TABLET BY [...] Edema 08/19/2013 Coronary artery disease invo lving [place] coronary artery of [place] heart without angina pectoris 08/19/2013 Overview: cardiac [...] disease, unspecified COPD type 12/25/2016 08/21/2017 Health Retirement 03/09/2015 08/26/2023 Overview: Status: Closed Director Of Environmental Services: Laurence Steele RN [phone] See Letters for [facility] Care Plan Date: [...] Sex Assigned at Male 03/30/2018 7:28 AM CONTROL CLERK FOOD AND BEVERAGE Gender Identity Male 03/30/2018 7:28 AM CONTROL CLERK FOOD AND BEVERAGE Sexual Orientation Straight 02/18/2018 9: 07 AM CONTROL CLERK FOOD AND BEVERAGE Last Filed Vital Signs Vital Sign Reading [...] (Cologuard) Discontinued Medical Devices Implanted Type Area Fourdrinier Operator Device Identifier Shelf Expiration Date Model / Serial / Lot Mesh Ventralex Hernia 2.5 [place] [employer] W/Strap [id number] Implanted:Qty: 1 on 04/16/2013 by Hans Schultz MD at [facility] N/A: Umbilical 01/02/2015 [id number] / / [id number] Procedures Procedure Name Priority Date/Time Associated Diagnosis Comments CT CHEST/ABDOMEN/PELVIS W CONTRAST Routine 02/06/2023 10:43 PM CONTROL CLERK FOOD AND BEVERAGE URIC ACID STAT 01/31/2023 8:25 AM CONTROL CLERK FOOD AND BEVERAGE Hematuria, unspecified BASIC METABOLIC PANEL Routine 01/24/2023 5:45 AM CONTROL CLERK FOOD AND BEVERAGE Aftercare following joint replacement surgery COMPREHENSIVE METABOLIC PANEL Routine 09/07/2019 12:48 PM CDT Monoclonal gammopathy Weight loss Fatigue, unspecified type Tarry stools COMPREHEN DRUG ANALYSIS UR Routine 08/17/2019 9:49 AM CDT Chronic pain syndrome LIPID PROFILE STAT 10/31/2018 7:23 AM CDT HTN, goal below 140/90 Hx of coronary artery disease COLONOSCOPY Routine 02/12/2018 9:47 AM CONTROL CLERK FOOD AND BEVERAGE SPIROMETRY - HIM SCAN Routine 12/20/2017 HEPATITIS C ANTIBODY Routine 07/25/2015 9:30 AM CDT Need for hepatitis C screening test from Last 3 Months or Most Recently Relevant to Health Maintenance Results * Uric acid (01/31/2023 8:25 AM CONTROL CLERK FOOD AND BEVERAGE) Uric Acid 4.0 3.4 - 7.0 mg/dL 01/31/2023 11:18 AM CONTROL CLERK FOOD AND BEVERAGE [facility] Blood BLOOD SPECIMEN / Unknown Client Draw / Unknown 01/31/2023 8:25 AM CONTROL CLERK FOOD AND BEVERAGE 01/31/2023 10:46 AM CONTROL CLERK FOOD AND BEVERAGE Jazmin Alvarado MD LAB - BLOOD ORDERABL ES [facility] [address] [facility], [address] [phone], [facility] [phone] * Basic metabolic panel (01/24/2023 5:45 AM CONTROL CLERK FOOD AND BEVERAGE) [facility] Sodium 138 135 - 145 mmol/L 01/24/2023 10:21 AM CONTROL CLERK FOOD AND BEVERAGE [facility] Comment:Reference intervals for this test were updated on 12/04/2022 to more accurately reflect our healthy population. There may be differences in the flagging of prior results with similar values performed with this method. Interpretation of those prior results can be made in the context of the updated reference intervals. Potassium 4.1 3.4 - 5.3 mmol/L 01/24/2023 10:21 AM CONTROL CLERK FOOD AND BEVERAGE [facility] Chloride 104 98 - 107 mmol/L 01/24/2023 10:21 AM CONTROL CLERK FOOD AND BEVERAGE [facility] Carbon Dioxide (CO2) 24 22 - 29 mmol/L 01/24/2023 10:21 AM CONTROL CLERK FOOD AND BEVERAGE [facility] Anion Gap 10 7 - 15 mmol/L 01/24/2023 10:21 AM CONTROL CLERK FOOD AND BEVERAGE [facility] Urea Nitrogen 15.2 8.0 - 23.0 mg/dL 01/24/2023 10:21 AM CONTROL CLERK FOOD AND BEVERAGE [facility] Creatinine 0.87 0.67 - 1.17 mg/dL 01/24/2023 10:21 AM CONTROL CLERK FOOD AND BEVERAGE [facility] GFR Estimate 89 >60 mL/min/1. 73m2 01/24/2023 10:21 AM CONTROL CLERK FOOD AND BEVERAGE [facility] Calcium 9.4 8.8 - 10.2 mg/dL 01/24/2023 10:21 AM CONTROL CLERK FOOD AND BEVERAGE [facility] Glucose 88 70 - 99 mg/dL 01/24/2023 10:21 AM CONTROL CLERK FOOD AND BEVERAGE [facility] Blood STRUCTURE OF LEFT UPPER LIMB / Unknown Venipuncture / Unknown 01/24/2023 5:45 AM CONTROL CLERK FOOD AND BEVERAGE 01/24/2023 8:02 AM CONTROL CLERK FOOD AND BEVERAGE Jazmin Alvarado MD LAB - BLOOD ORDERABL ES [facility] [address] [facility] [address] Building, [address] [place] [address], [facility] [phone] * (ABNORMAL) Comprehensive metabolic panel (09/07/2019 12:48 PM CDT) Sodium 139 133 - 144 mmol/L 09/07/2019 1:20 PM CDT [facility] Potassium 3.6 3.4 - 5.3 mmol/L 09/07/2019 1:20 PM T [facility] Chloride 107 94 - 109 mmol/L 09/07/2019 1:20 PM [facility] Carbon Dioxide 26 20 - 32 mmol/L 09/07/2019 1:28 PM [facility] Anion Gap 6 3 - 14 mmol/L 09/07/2019 1:28 PM [facility] Glucose 106(H) 70 - 99 mg/dL 09/07/2019 1:28 PM T [facility] Urea Nitrogen 12 7 - 30 mg/dL 09/07/2019 1:28 PM [facility] Creatinine 0.79 0.66 - 1.25 mg/dL 09/07/2019 1:28 PM [facility] GFR Estimate 89 >60 mL/min/{1. 73_m2} 09/07/2019 1:28 PM [facility] Comment: Non GFR Calc Starting 02/25/2018, serum creatinine based estimated GFR (eGFR) will be calculated using the Chronic Kidney Disease Epidemiology Collaboration (CKD-EPI) equation. GFR Estimate If [place] >90 >60 mL/min/{1. 73_m2} 09/07/2019 1:28 PM [facility] Comment: GFR Calc Starting 02/25/2018, serum creatinine based estimated GFR (eGFR) will be calculated using the Chronic Kidney Disease Epidemiology Collaboration (CKD-EPI) equation. Calcium 9.0 8.5 - 10.1 mg/dL 09/07/2019 1:28 PM [facility] Bilirubin Total 0.8 0.2 - 1.3 mg/dL 09/07/2019 1:30 PM CDT [facility] Albumin 3.7 3.4 - 5.0 g/dL 09/07/2019 1:30 PM CDT [facility] Protein Total 7.2 6.8 - 8.8 g/dL 09/07/2019 1:30 PM CDT [facility] Alkaline Phosphatase 101 40 - 150 U/L 09/07/2019 1:30 PM CDT [facility] ALT 25 0 - 70 U/L 09/07/2019 1:30 PM CDT [facility] AST 19 0 - 45 U/L 09/07/2019 1:30 PM CDT [facility] Blood specimen (specimen) 09/07/2019 12:48 PM CDT 09/07/2019 12:54 PM CDT Migue Browne MD LAB - BLOOD ORDERA BLES Performing Organization Address City/State/[facility] Co de Phone Number [facility] [address] [phone] * Drug Screen Comprehensive, Urine w/o Reported Meds (Pain Care Package) (08/17/2019 9:49 AM CDT) Pathologist [facility] Drug Analysis UR FINAL 08/20/2019 4:37 PM CDT [facility] Comment: (Note) COMPREHENSIVE DRUG ANALYSIS,UR Test [...] consultation, please call . Analysis performed by [employer], [employer] [place] [address] Urine specimen (specimen) 08/17/2019 9:49 AM CDT 08/17/2019 9:50 AM CDT Wesley Dugan MD LAB - URINE ORDERABL ES Performing Organization Address City/State/[facility] Co de Phone Number [facility] [phone] [place] [address] * (ABNORMAL) Lipid Profile (10/31/2018 7:23 AM CDT) Cholesterol 136 <200 mg/dL 10/31/2018 7:55 AM CDT [facility] Triglycerides 113 <150 mg/dL 10/31/2018 7:55 AM CDT [facility] Comment:Fasting specimen HDL Cholesterol 36(L) >39 mg/dL 9 7:58 AM CDT [facility] LDL Cholesterol Calculated 77 <100 mg/dL 10/31/2018 7:58 AM CDT [facility] Comment:Desirable: <100 mg/d l Non HDL Cholesterol 100 <130 mg/dL 10/31/2018 7:58 AM CDT [facility] Blood specimen (specimen) 10/31/2018 7:23 AM CDT 10/31/2018 7:29 AM CDT Miguel Culver PA-C LAB - BLOOD ORDERABL ES [facility] [address] [place] [address] [place] [address], [facility] [phone] [facility] [address] [place] [address], [facility] [phone] * COLONOSCOPY (02/12/2018 9:47 AM CONTROL CLERK FOOD AND BEVERAGE) COLONOSCOPY [facility] Patient Name: Butch Nieves ?Procedure Date: 02/12/2018 [...] # [id number], ?[place] # [id number], SN # [id number] was introduced through ?the anus and advanced [...] Procedure Code(s): ? --- Professional --- ? 74149, Colonoscopy, flexible; with removal of tumor(s), polyp(s), or ? other lesion(s) by snare technique Diagnosis Code(s): ? --- Professional --- ? D12.3, Benign neoplasm of transverse colon (hepatic flexure or splenic ? flexure) ? D12.2, Benign neoplasm of ascending colon CPT copyright 2017 [employer]. All rights reserved. The codes documented in this report are preliminary and upon palm and back forger review may be revised to meet current compliance requirements. Electronically signed by Joe Dent MD __ Joe Dent MD 02/12/2018 10:36:09 AM I was physically present for the entire viewing portion of the exam. Joe Dent MD Number of Addenda: 0 Note Initiated On: 02/12/2018 9:47 AM MRN: ?[id number] Procedure Date: ? 02/12/2018 9:47:22 AM Scope Withdrawal Time: 0 hours 6 minutes 17 seconds Total Procedure Duration: 0 hours 14 minutes 28 seconds Estimated Blood Loss: ? Scope In: 10:18:46 AM Scope Out: 10:33:14 AM RADIOLOGY RESULTS 02/12/2018 9:47 AM CONTROL CLERK FOOD AND BEVERAGE Joe Dent MD PROCEDURES RADIOLOGY RESULTS * Spirometry - HIM Scan (12/20/2017) Narrative Arin Berkowitz - 12/20/2017 [facility]-Progress note Provider Outside PFT ORDERABLES * Hepatitis C antibody (07/25/2015 9:30 AM CDT) Hepatitis C Antibody Nonreactive Assay performance characteristics have not been established for newborns, infants, and children NR [facility] Blood specimen (specimen) 07/25/2015 9:30 AM CDT 07/25/2015 9:31 AM CDT Wesley Dugan MD LAB - BLOOD ORDERABL ES [facility] [address] [place] [address] from Last 3 Months or Most Recently Relevant to Health Maintenance Advance Directives For more information, please contact: [phone] Documents on File Type Date Recorded Patient Head Chopper Expl anation Advance Directives and Living Will 11/15/2017 2:53 PM Health Care Directiv e 11/12/17 * Full Code (Latest Code Status on File) Date Activated Date Inactivated Comments 03/06/2015 9:26 AM 04/01/2018 1:20 PM * Full Code Date Activated Date Inactivated Comments 03/05/2015 6:19 PM 03/06/2015 9:26 AM Care Teams Machine Wedger Relationship Specialty [place] [address] [place] [address] PCP - General Family Practice 03/14/21
--- OUTSIDE RECORDS SUMMARY | 2023-10-07 08:21 | XMS_ITS | Encounter Summary ---
Author Organization [place] Address [address] [place] [address] Care Team Providers Care Couples Therapist Name Role Phone [facility] Unavailable Lashonda Maravilla MD Primary Care Provide r Unavailable Wesley Dugan MD Primary Care Provider [phone] Laurence Steele RN Unavailable [phone] Wesley Dugan MD Unavailable [phone] Wesley Dugan MD Unavailable [phone] Nela Sheth RN Unavailable Unavailable Ella Matias PA-C Unavailable Santi Heller MD Unavailable Aashish Leone MD Unavailable Unavail able Tato Mallory MD Unavailable [phone] Chirag Taylor MD Primary Care Provider + Miguel Culver PA-C Unavailable Wesley Dugan MD Unavailable [phone] Encounter Details Date Type Department Care Team (Late st Contact Info) Description 04/07/2013 Office Visit-[facility] [address] [place] [phone] Milagros Garrido MD HEART [facility] [address] [place] [id number] Social History Tobacco Use Types Packs/Day Years Used Date Smoking Tobacco: Every Day Cigarettes 1 53 Smokeless Tobacco: Never Alcohol Use Standard Drinks/Week Comments Yes 0 (1 standard drink = 0.6 oz pur e alcohol) social 2 drinks/week Sex and Gender Information Value Date Recorded Sex Assigned at Male 03/30/2018 7:28 AM INTERN BRAND Gender Identity Male 03/30/2018 7:28 AM INTERN BRAND Sexual Orientation Straight 02/18/2018 9: 07 AM INTERN BRAND documented as of this encounter Progress Notes * Milagros Garrido MD - 04/08/2013 8:34 AM CST Progress Note Created by: Milagros Garrido M.D. [id number] DATE: 04/07/2013 KANDY CANTRELL DATE OF : 1945 AGE: [age] years old Referring Physician: SARMAD GARDUNO Referring Clinic: [facility] CURRENT DIAGNOSES 1. - Hyperlipidemia, 272.4 2. [...] a six vessel bypass in 1996 in [place]. According to the patient, he had a stent repair of a AAA one year ago with repair of the arteries in his groin area. This was done at [facility]. Review of the available records suggests that he did have a right femoral endarterectomy with a pericardial patch angioplasty and infrarenal abdominal aortic aneurysm repair with an ulowx-pr-drink stent graft and a two piece graft [...] - lives with, daughter and lives in [place] year round; REVIEW OF SYSTEMS GENERAL weight [...] encouraged him to follow up with the enterprise solutions architect to determine when he could restart that [...] doppler 1 Day 2. F/U with Any ANNUAL GIVING DIRECTOR 7-14 days 3. Lexiscan Infusion 2 Days, able to convert to treadmill stress if pt able to exercise 4. Pulmonary [place] [place] [facility] [place] 5. Pulmonary Function Test Schedule at [facility] 234 BEDS AT [facility] Milagros Garrido M.D. documented in this encounter Plan of Treatment Not on file documented as of this encounter Visit Diagnoses Not on filedocumented in this encounter Additional Health Concerns Infection Onset Date Last Indicated Resolved Time Rule Out COVID-19 07/27/2019 07/27/2019 07/27/2019 10:15 PM CDT documented as of this encounter Care Teams Couples Therapist Relationship Specialty Start [place] [address] [place] [address] PCP - General Family Practice 03/02/13 12/21/14 [place] [address] [place] [address] PCP - General Family Practice 03/14/21 [place] [address] [place] [address] PCP - Assigned PCP 09/19/14 05/13/18 [place] [address] [address] PCP - General 03/15/20 03/13/21 [facility] [id number] [place] [address] 02/10/13 03/08/15 Laurence Steele, JARON Clinic Senior Pharmacy Technician Nurse 03/09/15 [place] [address] [place] [address] Assigned PCP 09/19/14 02/23/22 Nela Sheth, RN Personal Advocate & Liaison (PAL) Family Practice 10/13/19 03/14/20 Ella Matias PA-C [address] [place] [address] Assigned Cancer Care Provider 01/01/20 03/18/21 Santi Heller MD [address] [facility] [address] [place] [address] Assigned Surgical Provider 01/01/2003/01 Aashish Leone MD Assigned Heart and Vascular Provider 01/01/20 05/07/20 [place] [address] [facility] [address] [place] [address] Assigned Musculoskeletal Provider 01/01/20 07/23/20 Miguel Culver PA-C [address] [facility] [place] [address] Assigned Heart and Vascular Provider 05/25/20 04/29/21 [place] [address] [place], [place] [address] Assigned PCP 05/05/22 10/19/22 documented as of this encounter
--- OUTSIDE RECORDS SUMMARY | 2023-10-07 08:21 | XMS_ITS | Encounter Summary ---
Author Organization [place] Address [address] [place] [address] Care Team Providers Care Tow Feeder Name Role Phone [facility] Unavailable Lashonda Maravilla MD Primary Care Provide r Unavailable Wesley Dugan MD Primary Care Provider [phone] Laurence Steele RN Unavailable [phone] Wesley Dugan MD Unavailable [phone] Wesley Dugan MD Unavailable [phone] Nela Sheth RN Unavailable Unavailable Ella Matias PA-C Unavailable Santi Heller MD Unavailable [phone] Aashish Leone MD Unavailable Unavail able Tato Mallory MD Unavailable [phone] Chirag Taylor MD Primary Care Provider + Miguel Culver PA-C Unavailable [phone] Wesley Dugan MD Unavailable [phone] Encounter Details Date Type Department Care Team (Late st Contact Info) Description 04/13/2013 [facility] [address] [address] Lashonda Maravilla MD NO INFO AVAILABLE 07/12/2022 Social History Tobacco Use Types Packs/Day Years Used Date Smoking Tobacco: Every Day Cigarettes 1 53 Smokeless Tobacco: Never Alcohol Use Standard Drinks/Week Comments Yes 0 (1 standard drink = 0.6 oz pur e alcohol) social 2 drinks/week Sex and Gender Information Value Date Recorded Sex Assigned at Male 03/30/2018 7:28 AM CREPING MACHINE OPERATOR HELPER Gender Identity Male 03/30/2018 7:28 AM CREPING MACHINE OPERATOR HELPER Sexual Orientation Straight 02/18/2018 9: 07 AM CREPING MACHINE OPERATOR HELPER documented as of this encounter Plan of Treatment Not on file documented as of this encounter Visit Diagnoses Not on filedocumented in this encounter Additional Health Concerns Infection Onset Date Last Indicated Resolved Time Rule Out COVID-19 07/27/2019 07/27/2019 07/27/2019 10:15 PM CDT documented as of this encounter Care Teams Tow Feeder Relationship Specialty Start [place] [address] [place] [address] PCP - General Family Practice 03/02/13 12/21/14 [place] [address] [place] [address] PCP - General Family Practice 03/14/21 [place] [address] [place] [address] PCP - Assigned PCP 09/19/14 05/13/18 [place] [address] [address] PCP - General 03/15/20 03/13/21 [facility] [address] [place] [address] 02/10/13 03/08/15 Laurence Steele RN Clinic Spinneret Person Nurse 03/09/15 [place] [address] [place] [address] Assigned PCP 09/19/14 02/23/22 Nela Sheth, RN Personal Advocate & Liaison (PAL) Family Practice 10/13/19 03/14/20 Ella Matias PA-C [address] [place] [address] Assigned Cancer Care Provider 01/01/20 03/18/21 Santi Heller MD [address] [facility] [address] [place] [address] Assigned Surgical Provider 01/01/2003/01 Aashish Leone MD Assigned Heart and Vascular Provider 01/01/20 05/07/20 [place] [address] [facility] [address] [place] [address] Assigned Musculoskeletal Provider 01/01/20 07/23/20 Miguel Culver PA-C [address] [facility] [place] [address] Assigned Heart and Vascular Provider 05/25/20 04/29/21 [place] [address] [place] [address] Assigned PCP 05/05/22 10/19/22 documented as of this encounter
--- OUTSIDE RECORDS SUMMARY | 2023-10-07 08:21 | XMS_ITS | Encounter Summary ---
Author Organization [place] Address [address] [place] [address] Care Team Providers Care Dogman/Woman Name Role Phone [facility] Unavailable Ana Maravilla MD Primary Care Provide r Unavailable Wesley Dugan MD Primary Care Provider [phone] Laurence Steele RN Unavailable Wesley Dugan MD Unavailable [phone] Wesley Dugan MD Unavailable [phone] Nela Sheth RN Unavailable Unavailable Ella Matias PA-C Unavailable Santi Heller MD Unavailable [phone] Aashish Leone MD Unavailable Unavail able Tato Mallory MD Unavailable [phone] Chirag Taylor MD Primary Care Provider + Miguel Culver PA-C Unavailable [phone] Wesley Dugan MD Unavailable Encounter Details Date Type Department Care Team (Late st Contact Info) Description 07/16/2013 Office Visit-[facility] [address] [place] [phone] Milagros Manzano, AUTOMATIC SPINNING LATHE OPERATOR SYSTEM VALIDATION ENGINEER [address] [facility] [address] [place] [address] Social History Tobacco Use Types Packs/Day Years Used Date Smoking Tobacco: Every Day Cigarettes 0.8 53 Smokeless Tobacco: Never Alcohol Use Standard Drinks/Week Comments Yes 0 (1 standard drink = 0.6 oz pur e alcohol) social 2 drinks/week Sex and Gender Information Value Date Recorded Sex Assigned at Male 03/30/2018 7:28 AM CREDIT ASSESSMENT ANALYST Gender Identity Male 03/30/2018 7:28 AM CREDIT ASSESSMENT ANALYST Sexual Orientation Straight 02/18/2018 9: 07 AM CREDIT ASSESSMENT ANALYST documented as of this encounter Progress Notes * Milagros Manzano, AZEEM - 07/20/2013 10:50 AM CDT Progress Note Created by: Milagros Manzano, BRIAN [id number] DATE: 07/16/2013 KANDY CANTRELL DATE OF : [...] years ago. He was treated previously at [facility] for peripheral arterial disease. He [...] Residence -lives with, daughter and lives in [place] year round; REVIEW OF SYSTEMS GENERAL negative [...] documented as of this encounter Care Teams Dogman/Woman Relationship Specialty [place] [address] [place] [address] PCP - General Family Practice 03/02/13 12/21/14 [place] [address] [place] [address] PCP - General Family Practice 03/14/21 [place] [address] [place] [address] PCP - Assigned PCP 09/19/14 05/13/18 [place] [address] [address] PCP - General 03/15/20 03/13/[address] [address] 02/10/13 03/08/15 Laurence Steele RN Clinic Channel Supervisor Nurse 03/09/15 [place] [address] [place] [address] Assigned PCP 09/19/14 02/23/22 Nela Sheth RN Personal Advocate & Liaison (PAL) Family Practice 10/13/19 03/14/20 Ella Matias PA-C [address] [place] [address] Assigned Cancer Care Provider 01/01/20 03/18/21 Santi Heller MD [address] [facility] 500 [place] [address] Assigned Surgical Provider 01/01/2003/01 Aashish Leone MD Assigned Heart and Vascular Provider 01/01/20 05/07/20 [place] [address] [facility] [address] [place] [address] Assigned Musculoskeletal Provider 01/01/20 07/23/20 Miguel Culver PA-C [address] [place] [address] Assigned Heart and Vascular Provider 05/25/20 04/29/21 [place] [address] [place] [address] Assigned PCP 05/05/22 10/19/22 documented as of this encounter
--- OUTSIDE RECORDS SUMMARY | 2023-10-07 08:21 | XMS_ITS | Encounter Summary ---
Author Organization [place] Address [address] [place] [address]. [place] [address] Care Team Providers Care Manpower Development Specialist Manager Name Role Phone Wesley Dugan MD Primary Care Provider [phone] Laurence Steele RN Unavailable Wesley Dugan MD Unavailable [phone] Wesley Dugan MD Unavailable Nela Sheth RN Unavailable Unavailable Ella Matias PA-C Unavailable Santi Heller MD Unavailable Aashish Leone MD Unavailable Unavail able Tato Mallory MD Unavailable Chirag Taylor MD Primary Care Provider + Miguel Culver PA-C Unavailable [phone] Wesley Dugan MD Unavailable [phone] Reason for Visit * Reason Onset Date Comments Medication Question 03/23/2015 Probiotic Encounter Details Date Type Department Care Team (Late st Contact Info) Description 03/23/2015 MyC Medical Advice [facility] [address] [place] [address] [phone] Wesley Dugan MD [address] [place] [address] Medication Question (Probiotic) Social History Tobacco [...] Sex Assigned at Male 03/30/2018 7:28 AM VENDING SUPERVISOR Gender Identity Male 03/30/2018 7:28 AM VENDING SUPERVISOR Sexual Orientation Straight 02/18/2018 9: 07 AM VENDING SUPERVISOR documented as of this encounter Miscellaneous Notes * Telephone Encounter - Wesley Dugan MD - 03/23/2015 4:46 PM CST culturelle is fine Still having diarrhea? Wesley Dugan ING SUPERVISOR * Telephone Encounter - Karo Saini RN - 03/23/2015 9:[address] Dugan-see [employer] message below. Please advise. Karo Saini RN ING SUPERVISOR documented in this encounter Plan of Treatment Not on file documented as of this encounter Visit Diagnoses Not on filedocumented in this encounter Additional Health Concerns Infection Onset Date Last Indicated Resolved Time Rule Out COVID-19 07/27/2019 07/27/2019 07/27/2019 10:15 PM CDT Assessment Noted Time PHQ-9 Depression Total Score: 15 015 7:16 AM CDT documented as of this encounter Care Teams Manpower Development Specialist Manager Relationship Specialty [place] [address] [place] [address] PCP - General Family Practice 03/14/21 [place] [address] [place], [place] [address] PCP - Assigned PCP 09/19/14 05/13/18 [place] [address] [facility] 300 [place], [place] [address] PCP - General 03/15/20 03/13/21 Laurence Steele, JARON Clinic Wood Preserving Plant Laborer Nurse 03/09/15 [place] [address] [place], [place] [address] Assigned PCP 09/19/14 02/23/22 Nela Sheth RN Personal Advocate & Liaison (PAL) Family Practice 10/13/19 03/14/20 Ella Matais PA-C 9 [place] [address] Assigned Cancer Care Provider 01/01/20 03/18/21 Santi Heller MD 6363 [facility] [address] [address]220[address] Assigned Surgical Provider 01/01/2003/01 Aashish Leone MD Assigned Heart and Vascular Provider 01/01/20 05/07/20 [place] [address] [address] Assigned Musculoskeletal Provider 01/01/20 07/23/20 Miguel Culver PA-C 6405 [facility] [place], [place] [address] Assigned Heart and Vascular Provider 05/25/20 04/29/21 [place] [address] [place] [address] Assigned PCP 05/05/22 10/19/22 documented as of this encounter
--- OUTSIDE RECORDS SUMMARY | 2023-10-07 08:21 | XMS_ITS | Encounter Summary ---
Author Organization [place] Address [address] [place] [address] Care Team Providers Care Dobie Worker Name Role Phone Wesley Dugan MD Primary Care Provider [phone] Laurence Steele RN Unavailable [phone] Wesley Dugan MD Unavailable [phone] Wesley Dugan MD Unavailable [phone] Nela Sheth RN Unavailable Unavailable Ella Matias PA-C Unavailable Santi Heller MD Unavailable Aashish Leone MD Unavailable Unavail able Tato Mallory MD Unavailable [phone] Chirag Taylor MD Primary Care Provider + Miguel Culver PA-C Unavailable Wesley Dugan MD Unavailable [phone] Encounter Details Date Type Department Care Team (Late st Contact Info) Description 01/30/2016 [facility] [address] [place] [address] Hans Schultz MD [address] [place] [address] Social History Tobacco Use Types [...] Sex Assigned at Male 03/30/2018 7:28 AM DIE MOUNTER Gender Identity Male 03/30/2018 7:28 AM DIE MOUNTER Sexual Orientation Straight 02/18/2018 9: 07 AM DIE MOUNTER documented as of this encounter Plan of Treatment Not on file documented as of this encounter Visit Diagnoses Not on filedocumented in this encounter Additional Health Concerns Infection Onset Date Last Indicated Resolved Time Rule Out COVID-19 07/27/2019 07/27/2019 07/27/2019 10:15 PM CDT Assessment Noted Time PHQ-9 Depression Total Score: 13 11/22/ 016 7:18 AM CDT documented as of this encounter Care Teams Dobie Worker Relationship Specialty [place] [address] [place] [address] PCP - General Family Practice 03/14/21 [place] [address] [place] [address] PCP - Assigned PCP 09/19/14 05/13/18 [place] [address] [address] PCP - General 03/15/20 03/13/21 Laurence Steele RN Clinic Gardening Instructor Nurse 03/09/15 [place] [address] [place], [place] [address] Assigned PCP 09/19/14 02/23/22 Nela Sheth, RN Personal Advocate & Liaison (PAL) Family Practice 10/13/19 03/14/20 Ella Matias PA-C 909 [place] [address] Assigned Cancer Care Provider 01/01/20 03/18/21 Santi Heller MD 6363 [facility] 500 [place], [place] [address] Assigned Surgical Provider 01/01/2003/01 Aashish Leone MD Assigned Heart and Vascular Provider 01/01/20 05/07/20 [place] [address] [facility] 300 [place] [address] Assigned Musculoskeletal Provider 01/01/20 07/23/20 Miguel Culver PA-C 6405 [place] [address] Assigned Heart and Vascular Provider 05/25/20 04/29/21 [place] [address] [place] [address] Assigned PCP 05/05/22 10/19/22 documented as of this encounter
--- OUTSIDE RECORDS SUMMARY | 2023-10-07 08:21 | XMS_ITS | Encounter Summary ---
Author Organization [place] Address [address] [place] [address] Care Team Providers Care Pond Tender Name Role Phone Wesley Dugan MD Primary Care Provider Wesley Dugan MD Unavailable [phone] Nela Sheth RN Unavailable Unavailable Ella Matias PA-C Unavailable Santi Heller MD Unavailable [phone] Aashish Leone MD Unavailable Unavail able Tato Mallory MD Unavailable [phone] Chirag Taylor MD Primary Care Provider + Miguel Culver PA-C Unavailable [phone] Wesley Dugan MD Unavailable [phone] Encounter Details Date Type Department Care Team (Late st Contact Info) Description 07/16/[address] [place] [address] Duran Qureshi Social History Tobacco Use Types Packs/Day Years Used Date Smoking Tobacco: Former Cigarettes 0 1958 - 2016 Smokeless Tobacco: Never Alcohol Use Standard Drinks/Week Comments No 0 (1 standard drink = 0.6 oz pur e alcohol) PHQ-2 Answer Date Recorded PHQ-2 Score 4 03/18/2018 Sex and Gender Information Value Date Recorded Sex Assigned at Male 03/30/2018 7:28 AM A AUXILIARY Gender Identity Male 03/30/2018 7:28 AM A AUXILIARY Sexual Orientation Straight 02/18/2018 9: 07 AM A AUXILIARY documented as of this encounter Plan of Treatment Not on file documented as of this encounter Visit Diagnoses Not on filedocumented in this encounter Additional Health Concerns Infection Onset Date Last Indicated Resolved Time Rule Out COVID-19 07/27/2019 07/27/2019 07/27/2019 10:15 PM CDT Assessment Noted Time PHQ-9 Depression Total Score: 12 019 11:34 AM CDT documented as of this encounter Care Teams Pond Tender Relationship Specialty [place] [address] [place] [address] PCP - General Family Practice 03/14/21 [place] [address] [address] PCP - General 03/15/20 03/13/21 [place] [address] [place] [address] Assigned PCP 09/19/14 02/23/22 Nela Sheth RN Personal Advocate & Liaison (PAL) Family Practice 10/13/19 03/14/20 Ella Matias, PALizzethC 9 [place] [address] Assigned Cancer Care Provider 01/01/20 03/18/21 Santi Heller MD 6363 [facility] 500 [place] [address] Assigned Surgical Provider 01/01/2003/01 Aashish Leone MD Assigned Heart and Vascular Provider 01/01/20 05/07/20 [place] [address] [facility] 300 [place] [address] Assigned Musculoskeletal Provider 01/01/20 07/23/20 Miguel Culver PA-C 6405 [place] [address] Assigned Heart and Vascular Provider 05/25/20 04/29/21 [place] [address] [place] [address] Assigned PCP 05/05/22 10/19/22 documented as of this encounter
--- OUTSIDE RECORDS SUMMARY | 2023-10-07 08:21 | XMS_ITS | Encounter Summary ---
Author Organization [place] Address [address] [place] [address]. [place] [address] Care Team Providers Care Junior Legal Secretary Name Role Phone Wesley Dugan MD Primary Care Provider Wesley Dugan MD Unavailable [phone] Nela Sheth RN Unavailable Unavailable Ella Matias PA-C Unavailable Santi Heller MD Unavailable Aashish Leone MD Unavailable Unavail able Tato Mallory MD Unavailable Chirag Taylor MD Primary Care Provider + Miguel Culver PA-C Unavailable [phone] Wesley Dugan MD Unavailable [phone] Reason for Visit * Reason Comments Medication Refill Oxycodone Encounter Details Date Type Department Care Team (Late st Contact Info) Description 06/17/2019 Refill [facility] [address] [place] [address] [place] [address] [place] [address] Medication Refill (Oxycodone) Social History [...] Sex Assigned at Male 03/30/2018 7:28 AM WIRE WRAPPER MACHINE OPERATOR Gender Identity Male 03/30/2018 7:28 AM WIRE WRAPPER MACHINE OPERATOR Sexual Orientation Straight 02/18/2018 9: 07 AM WIRE WRAPPER MACHINE OPERATOR COVID-19 Exposure Response Date Recorded In the last month, have you been in contact with someone who was confirmed or suspected to have Coronavirus / COVID-19? Unable to assess 05/29/2019 7:44 AM CDT documented as of this encounter Miscellaneous Notes * Telephone Encounter - Karo Saini RN - 06/17/2019 10:36 AM CDT Oxycodone Last OV 05/29/19 telephone Last RF 05/21/19 #60 MULTIMEDIA EDUCATIONAL SPECIALIST updated. No concerns noted. Due 06/20/19. Not [...] Total Score: 5 04/14/19 20 7:02 AM WIRE WRAPPER MACHINE OPERATOR documented as of this encounter Care Teams Junior Legal Secretary Relationship Specialty [place] [address] [place] [address] PCP - General Family Practice 03/14/21 [place] [address] [address] PCP - General 03/15/20 03/13/21 [place] [address] [place] [address] Assigned PCP 09/19/14 02/23/22 Nela Sheth, RN Personal Advocate & Liaison (PAL) Family Practice 10/13/19 03/14/20 Ella Matias PA-C 9 [place] [address] Assigned Cancer Care Provider 01/01/20 03/18/21 Santi Heller MD 6363 [facility] 500 [place] [address] Assigned Surgical Provider 01/01/2003/01 Aashish Leone MD Assigned Heart and Vascular Provider 01/01/20 05/07/20 [place] [address] [facility] 300 [place] [address] Assigned Musculoskeletal Provider 01/01/20 07/23/20 Miguel Culver PA-C 6405 [place] [address] Assigned Heart and Vascular Provider 05/25/20 04/29/21 [place] [address] [place], [place] [address] Assigned PCP 05/05/22 10/19/22 documented as of this encounter
--- OUTSIDE RECORDS SUMMARY | 2023-10-07 08:21 | XMS_ITS | Encounter Summary ---
Author Organization [place] Address [address] [place] [address] Care Team Providers Care Manager Floor Name Role Phone Wesley Dugan MD Primary Care Provider Wesley Dugan MD Unavailable [phone] Nela Sheth RN Unavailable Unavailable Ella Matias PA-C Unavailable Santi Heller MD Unavailable Aashish Leone MD Unavailable Unavail able Tato Mallory MD Unavailable Chirag Taylor MD Primary Care Provider + Miguel Culver PA-C Unavailable [phone] Wesley Dugan MD Unavailable [phone] Reason for Visit * Reason Onset Date Comments Referral 08/18/2019 Pt being referre d for Dysuria/Benign prostatic hyperplasia with weak urinary stream, records and referral in [facility] Referral 08/18/2019 pt is calling ab out the referral, hoping to get a call today Encounter Details Date Type Department Care Team (Late st Contact Info) Description 08/18/[address] [facility] [address] [facility] 4th [place] [address] Unknown Referral (Pt being referred for Dysuria/Benign prostatic hyperplasia with weak urinary stream, records and referral in [facility]); Referral (pt is calling about the [...] Assigned at Male 03/30/2018 7:28 AM CHIEF LIBRARIAN CIRCULATION DEPARTMENT Gender Identity Male 03/30/2018 7:28 AM CHIEF LIBRARIAN CIRCULATION DEPARTMENT Sexual Orientation Straight 02/18/2018 9: 07 AM CHIEF LIBRARIAN CIRCULATION DEPARTMENT COVID-19 Exposure Response Date Recorded In the [...] have his ER follow up done at [facility] urology department not here at the [facility]-urology department. Please call patient to coordinate this [...] someone. Action Taken: Message routed to: Other: [facility] Travel Screening: Not Applicable * Telephone Encounter - Danette Ye - 08/20/2019 9:17 AM CDT [facility] Phone Message May a detailed message be left on voicemail: yes Reason for Call: Other: pt would like to get in AN. He has burning pain. Please call to schedule. Action Taken: Message routed to: [facility] ([facility]): urology Travel Screening: Not Applicable * Telephone Encounter - Danilo Aracely - 08/18/2019 2:[address] [facility] Phone Message May a detailed message be left on voicemail: yes Reason for Call: Other: Pt being referred for Dysuria/Benign prostatic hyperplasia with weak urinary stream, records and referral in [facility] Action Taken: Message routed to: [facility] ([facility]): urology. Travel Screening: Not Applicable documented in this encounter Plan of Treatment Not on file documented as of this encounter Visit Diagnoses Not on filedocumented in this encounter Additional Health Concerns Assessment Noted Time PHQ-9 Depression Total Score: 8 08/15/19 7:03 AM CDT documented as of this encounter Care Teams Manager Floor Relationship Specialty [place] [address] [place], [place] [id number] PCP - General Family Practice 03/14/21 [place] [address] [address] PCP - General 03/15/20 03/13/21 [place] [address] [place] [address] Assigned PCP 09/19/14 02/23/22 Nela Sheth, JARON Personal Advocate & Liaison (PAL) Family Practice 10/13/19 03/14/20 Ella Matias, PA-C 909 [place] [address] Assigned Cancer Care Provider 01/01/20 03/18/21 Santi Heller MD 6363 [facility] 500 [place] [address] Assigned Surgical Provider 01/01/2003/01 Aashish Leone MD Assigned Heart and Vascular Provider 01/01/20 05/07/20 [place] [address] [facility] 300 [place] [address] Assigned Musculoskeletal Provider 01/01/20 07/23/20 Miguel Culver PA-C 6405 [place] [address] Assigned Heart and Vascular Provider 05/25/20 04/29/21 [place] [address] [place] [address] Assigned PCP 05/05/22 10/19/22 documented as of this encounter
--- OUTSIDE RECORDS SUMMARY | 2023-10-07 08:21 | XMS_ITS | Encounter Summary ---
Author Organization [place] Address [address] [place] [address] Care Team Providers Care Watch Technician Name Role Phone Wesley Dugan MD Primary Care Provider [phone] Wesley Dugan MD Unavailable [phone] Nela Sheth RN Unavailable Unavailable Ella Matias PA-C Unavailable Santi Heller MD Unavailable [phone] Aashish Leone MD Unavailable Unavail able Tato Mallory MD Unavailable [phone] Chirag Taylor MD Primary Care Provider + Miguel Culver PA-C Unavailable [phone] Wesley Dugan MD Unavailable [phone] Encounter Details Date Type Department Care Team (Late st Contact Info) Description 09/30/2018 [facility] [address] [address] Varsha Jeronimo RN Social History [...] Sex Assigned at Male 03/30/2018 7:28 AM FILM PROJECTOR OPERATOR Gender Identity Male 03/30/2018 7:28 AM FILM PROJECTOR OPERATOR Sexual Orientation Straight 02/18/2018 9: 07 AM FILM PROJECTOR OPERATOR documented as of this encounter Plan [...] documented as of this encounter Care Teams Watch Technician Relationship Specialty [place] [address] [place] [address] PCP - General Family Practice 03/14/21 [place] [address] [address] PCP - General 03/15/20 03/13/21 [place] [address] [place] [address] Assigned PCP 09/19/14 02/23/22 Nela Sheth RN Personal Advocate & Liaison (PAL) Family Practice 10/13/19 03/14/20 Ella Matias, PALizzethC 909 [place] [address] Assigned Cancer Care Provider 01/01/20 03/18/21 Santi Heller MD 6363 [facility] 500 [place] [address] Assigned Surgical Provider 01/01/2003/01 Aashish Leone MD Assigned Heart and Vascular Provider 01/01/20 05/07/20 [place] [address] [address] Assigned Musculoskeletal Provider 01/01/20 07/23/20 Miguel Culver PA-C 6405 [place] [address] Assigned Heart and Vascular Provider 05/25/20 04/29/21 [place] [address] [place] [address] Assigned PCP 05/05/22 10/19/22 documented as of this encounter
--- OUTSIDE RECORDS SUMMARY | 2023-10-07 08:21 | XMS_ITS | Encounter Summary ---
Author Organization [facility] Address [address] [place] [address]. [place] [address] Care Team Providers Care Urban Gardening Specialist Name Role Phone Welsey Dugan MD Primary Care Provider [phone] Wesely Dugan MD Unavailable [phone] Nela Sheth RN Unavailable Unavailable Ella Matias PA-C Unavailable Santi Heller MD Unavailable Aashish Leone MD Unavailable Unavail able Tato Mallory MD Unavailable Chirag Taylor MD Primary Care Provider + Miguel Culver PA-C Unavailable [phone] Wesley Dugan MD Unavailable [phone] Reason for Visit * Reason Comments Medication Refill Encounter Details Date Type Department Care Team (Late st Contact Info) Description 02/23/2019 Refill [facility] [address] [place] [address] [place] [address] [place] [address] Medication Refill Social History Tobacco Use Types Packs/Day Years Used Date Smoking Tobacco: Former Cigarettes 0 1958 - 2016 Smokeless Tobacco: Never Alcohol Use Standard Drinks/Week Comments Not Currently 0 (1 standard drink = 0.6 oz pur e alcohol) PHQ-2 Answer Date Recorded PHQ-2 Score 3 02/27/2019 Sex and Gender Information Value Date Recorded Sex Assigned at Male 03/30/2018 7:28 AM INSULATION FOREMAN Gender Identity Male 03/30/2018 7:28 AM INSULATION FOREMAN Sexual Orientation Straight 02/18/2018 9: 07 AM INSULATION FOREMAN documented as of this encounter Miscellaneous Notes [...] Labs not current: Last uric acid 2016 LATION FOREMAN documented in this encounter Plan of Treatment [...] documented as of this encounter Care Teams Urban Gardening Specialist Relationship Specialty [place] [address] [place] [address] PCP - General Family Practice 03/14/21 Chirag Taylor MD [address] [place] [address] PCP - General 03/15/20 03/13/21 [place] [address] [place] [address] Assigned PCP 09/19/14 02/23/22 Nela Sheth RN Personal Advocate & Liaison (PAL) Family Practice 10/13/19 03/14/20 Ella Matias PA-C 909 [place] [address] Assigned Cancer Care Provider 01/01/20 03/18/21 Santi Heller MD 6363 [facility] 500 [place] [address] Assigned Surgical Provider 01/01/2003/01 aAshish Leone MD Assigned Heart and Vascular Provider 01/01/20 05/07/20 [place] [address] [facility] 300 [place] [address] Assigned Musculoskeletal Provider 01/01/20 07/23/20 Miguel Culver PA-C 6405 [place] [address] Assigned Heart and Vascular Provider 05/25/20 04/29/21 [place] [address] [place] [address] Assigned PCP 05/05/22 10/19/22 documented as of this encounter
--- OUTSIDE RECORDS SUMMARY | 2023-10-07 08:21 | XMS_ITS | Encounter Summary ---
Author Organization [place] Address [address] [place] [address] Care Team Providers Care Grinder Set Up Operator Centerless Name Role Phone [facility] Unavailable Ana Maravilla MD Primary Care Provide r Unavailable Wesley Dugan MD Primary Care Provider [phone] Laurence Steele RN Unavailable Wesley Dugan MD Unavailable [phone] Wesley Dugan MD Unavailable Nela Sheth RN Unavailable Unavailable Ella Matias PA-C Unavailable Santi Heller MD Unavailable [phone] Aashish Leone MD Unavailable Unavail able Tato Mallory MD Unavailable [phone] Chirag Taylor MD Primary Care Provider + Miguel Culver PA-C Unavailable Wesley Dugan MD Unavailable [phone] Encounter Details Date Type Department Care Team (Late st Contact Info) Description 07/02/2013 Office Visit-[facility] [address] [place] [phone] Milagros Manzano, SUPERVISOR FISH PROCESSING SOFTWARE DEVELOPMENT TEST ENGINEER 6[address] [facility] [address] [place] [address] Social History Tobacco Use Types Packs/Day Years Used Date Smoking Tobacco: Every Day Cigarettes 0.8 53 Smokeless Tobacco: Never Alcohol Use Standard Drinks/Week Comments Yes 0 (1 standard drink = 0.6 oz pur e alcohol) social 2 drinks/week Sex and Gender Information Value Date Recorded Sex Assigned at Male 03/30/2018 7:28 AM BUFFING AND POLISHING WHEEL REPAIRER Gender Identity Male 03/30/2018 7:28 AM BUFFING AND POLISHING WHEEL REPAIRER Sexual Orientation Straight 02/18/2018 9: 07 AM BUFFING AND POLISHING WHEEL REPAIRER documented as of this encounter Progress Notes * Milagros Manzano, AZEEM - 07/08/2013 9:34 AM CDT Progress Note Created by: Milagros Manzano, BRIAN [id number] DATE: 07/02/2013 KANDY CANTRELL DATE OF : [...] ago. He has been treated previously at [facility] for peripheral arterial disease. He underwent endovascular [...] Residence -lives with, daughter and lives in [place] year round; REVIEW OF SYSTEMS GENERAL increased [...] (DR/EC), One tablet p.o. daily, #30 (Thirty) Pravlnee00 mg capsule,delayed release(DR/EC), 1 p.o. daily, #0 [...] documented as of this encounter Care Teams Grinder Set Up Operator Centerless Relationship Specialty [place] [address] [place] [address] PCP - General Family Practice 03/02/13 12/21/14 [place] [address] [place] [address] PCP - General Family Practice 03/14/21 [place] [address] [place] [address] PCP - Assigned PCP 09/19/14 05/13/18 [place] [address] [address] PCP - General 03/15/20 03/13/[address] [id number] 02/10/13 03/08/15 Laurence Steele RN Clinic Chemical Processing Technician Nurse 03/09/15 [place] [address] [place] [address] Assigned PCP 09/19/14 02/23/22 Nela Sheth RN Personal Advocate & Liaison (PAL) Family Practice 10/13/19 03/14/20 Ella Matias, PA-C 909 [place] [address] Assigned Cancer Care Provider 01/01/20 03/18/21 Santi Heller MD 6363 [facility] 500 [place] [address] Assigned Surgical Provider 01/01/2003/01 Aashish Leone MD Assigned Heart and Vascular Provider 01/01/20 05/07/20 [place] [address] [address] Assigned Musculoskeletal Provider 01/01/20 07/23/20 Miguel Culver PA-C 6405 [place] [address] Assigned Heart and Vascular Provider 05/25/20 04/29/21 [place] [address] [place] [address] Assigned PCP 05/05/22 10/19/22 documented as of this encounter
--- OUTSIDE RECORDS SUMMARY | 2023-10-07 08:21 | XMS_ITS | Encounter Summary ---
Author Organization [place] Address [address] [place] [address]. [place] [address] Care Team Providers Care Flotation Tender Name Role Phone [facility] Unavailable Lashonda Maravilla MD Primary Care Provide r Unavailable Wesley Dugan MD Primary Care Provider [phone] Laurence Steele RN Unavailable [phone] Wesley Dugan MD Unavailable [phone] Wesley Dugan MD Unavailable [phone] Nela Sheth RN Unavailable Unavailable Ella Matias PA-C Unavailable Santi Heller MD Unavailable [phone] Aashish Leone MD Unavailable Unavail able Tato Mallory MD Unavailable [phone] Chirag Taylor MD Primary Care Provider + Miguel Culver PA-C Unavailable [phone] Wesley Dugan MD Unavailable [phone] Encounter Details Date Type Department Care Team (Late st Contact Info) Description 04/28/2013 Office Visit-[facility] [place] [address] [facility] [address] [place] [id number] Leopoldo Mallory MD [address] [facility] [address] [place] [address] Social History Tobacco Use Types Packs/Day Years Used Date Smoking Tobacco: Every Day Cigarettes 1 53 Smokeless Tobacco: Never Alcohol Use Standard Drinks/Week Comments Yes 0 (1 standard drink = 0.6 oz pur e alcohol) social 2 drinks/week Sex and Gender Information Value Date Recorded Sex Assigned at Male 03/30/2018 7:28 AM LIQUID FLAVOR COMPOUNDER Gender Identity Male 03/30/2018 7:28 AM LIQUID FLAVOR COMPOUNDER Sexual Orientation Straight 02/18/2018 9: 07 AM LIQUID FLAVOR COMPOUNDER documented as of this encounter Progress Notes * Leopoldo Mallory MD - 04/28/2013 10:17 AM CST Progress Note Created by: Leopoldo Mallory MD DATE: 04/23/2013 KANDY CANTRELL DATE OF : 1945 AGE: [age] years old Referring Physician: LEOPOLDO GARDUNO Referring Clinic: [facility] CURRENT DIAGNOSES 1. - Hyperlipidemia, 272.4 2. [...] He has had been treated previously at [facility]. I have reviewed his records. He had [...] - lives with, daughter and lives in [place] year round; REVIEW OF SYSTEMS GENERAL increased [...] documented as of this encounter Care Teams Flotation Tender Relationship Specialty [place] [address] [place] [address] PCP - General Family Practice 03/02/13 12/21/14 [place]ug[place] [id number] [place] [address] PCP - General Family Practice 03/14/21 [place] [address] [place] [address] PCP - Assigned PCP 09/19/14 05/13/18 [place] [address] [address] PCP - General 03/15/20 03/13/21 [facility] [id number] [place] [address] 02/10/13 03/08/15 Laurence Steele, [facility] Operator Nurse 03/09/15 Wesley Dugan MD [id number] [place] [address] Assigned PCP 09/19/14 02/23/22 Nela Sheth RN Personal Advocate & Liaison (PAL) Family Practice 10/13/19 03/14/20 Ella Matias, PA-C [address] [place] [address] Assigned Cancer Care Provider 01/01/20 03/18/21 Santi Heller MD [address] [place] [address] Assigned Surgical Provider 01/01/2003/01 Aashish Leone MD Assigned Heart and Vascular Provider 01/01/20 05/07/20 [place] [address] [facility] [address] [place], [place] [address] Assigned Musculoskeletal Provider 01/01/20 07/23/20 Miguel Culver PA-C [address] [place] [address] Assigned Heart and Vascular Provider 05/25/20 04/29/21 [place] [address] [place], [place] [id number] Assigned PCP 05/05/22 10/19/22 documented as of this encounter
--- NOTE | 2023-10-07 09:20 | P.ANES_ITS ---
Anesthesia Charges Start Date/Time Anesthesia Start Date: 10/07/23 Anesthesia Start Time: 08:45 Stop Date/Time Anesthesia Stop Date: 10/07/23 Anesthesia Stop Time: 09:17 Summary Extremes of Age - Over 70 or under 1: FACTORY REPRESENTATIVE
== END 2023-10-07 08:16 | disposition home or self-care (01) ==
LOC: OP CLINIC 08:16
PROVIDERS: PCP Internal Medicine; Visit Provider Internal Medicine
DX: D50.9 Iron deficiency anemia, unspecified (principal); K64.8 Other hemorrhoids
CPT/HCPCS: 00813; 43239; 45378; 88305; 99100; J2704; J3010

== ENCOUNTER 2023-11-15 07:56 | Outpatient (CLI) | payer OTHER, MEDICAID, SELFPAY ==
--- OUTSIDE RECORDS SUMMARY | 2023-11-15 07:59 | XMS_ITS | Encounter Summary ---
Author Organization [facility] Address [address] [place] [address] Care Team Providers Care Learning Analyst Name Role Phone Unavailable Primary Care Provider Unavailabl e Encounter Details Date Type Department Care Team (Late st Contact Info) Description 11/08/2023 Orders Only Division of Pulmonary Medicine in [place], [place] [address] [place] [address] Astrid Sullivan Social History Tobacco Use Types Packs/Day Years Used Date Smoking Tobacco: Former Cigarettes Q uit: 2017 Smokeless Tobacco: Never Alcohol Use Standard Drinks/Week Comments Not Currently 0 (1 standard drink = 0.6 oz pur e alcohol) [facility] Utilities Answer Date Recorded In the past 12 months has th e electric, gas, oil, or water company threatened to shut off services in your [...] your living situation today? I have a [facility] place to live 10/02/2023 Sex and Gender Information Value Date Recorded Sex Assigned at Male 10/02/2023 12:12 PM CDT Gender Identity Male 10/02/2023 12:12 PM CDT Sexual Orientation Straight 10/02/2023 12 :12 PM CDT documented as of this encounter Plan of Treatment Upcoming Encounters Date Type Department Care Team (Latest Contact Info) Description 12/13/2023 8:00 AM CDT Hospital Encounter Post Anesthesia Care Unit in [place], [place] [address] [place] [phone] Hans Felix M.D. [address] [place] [phone] 12/13/2023 8:00 AM CDT - 12/13/2023 9:30 AM CDT Surgery [facility]IN OR [address] [place] [phone] Hans Felix M.D. [address] [place] [phone] BRONCHOSCOPY FLEXIBLE Scheduled Procedures Name Priority Associated Diagnoses Date/Ti me BRONCHOSCOPY FLEXIBLE Bronchitis Chronic (HCC) Chronic Obstructive Pulmonary Disease (HCC) 12/13/2023 8:00 AM CDT documented as of this encounter Visit Diagnoses Not on filedocumented in this encounter
--- OUTSIDE RECORDS SUMMARY | 2023-11-15 07:59 | XMS_ITS | Encounter Summary ---
Author Organization [facility] Address [address] [place] [address] Care Team Providers Care Personal Secretary Name Role Phone Unavailable Primary Care Provider Unavailabl e Reason for Visit * Auth/Cert (Routine) Specialty Diagnoses / Procedures Referred By Contac t Referred To Contact Diagnoses Bronchitis Chronic (HCC) Chronic Obstructive Pulmonary Disease (HCC) Bronchitis Chronic (HCC) [J42] Chronic Obstructive Pulmonary Disease (HCC) [J44.9] Procedures MD BRONCH DX W CELL WASH FLUOR BRONCHOSCOPY FLEXIBLE Harsha Roberto M.D. 200 [place] [address] Referral ID Status Reason Start Date Expiration Date Visits Re quested Visits Authorized [id number] 1 1 Encounter Details Date Type Department Care Team (Late st Contact Info) Description 11/08/2023 7:15 AM CDT - 11/08/2023 8:36 AM CDT Surgery [facility] OR [address] [place] [phone] Harsha Roberto M.D. [address] [place] [phone] 1st case, BRONCHOSCOPY FLEXIBLE, Rheoplast. Social History Tobacco Use Types Packs/Day Years Used Date Smoking Tobacco: Former Cigarettes Q uit: 2017 Smokeless Tobacco: Never Tobacco Cessation:Counseling Given: Not Answered Alcohol Use Standard Drinks/Week Comments Not Currently 0 (1 standard drink = 0.6 oz pur e alcohol) [facility] Utilities Answer Date Recorded In the [...] your living situation today? I have a [facility] place to live 10/02/2023 Sex and Gender Information Value Date Recorded Sex Assigned at Male 10/02/2023 12:12 PM CDT Gender Identity Male 10/02/2023 12:12 PM CDT Sexual Orientation Straight 10/02/2023 12 :12 PM CDT documented as of this encounter Last Filed Vital Signs Vital Sign Reading Time Taken Comments Blood Pressure 123/64 11/08/2023 6:53 AM CDT Pulse - - Temperature 36.7 ??C (98.1 ??F) 11/08/2023 6:53 AM CD T Respiratory Rate 16 11/08/2023 6:53 AM CDT Oxygen Saturation 95% 11/08/2023 6:53 AM CDT Inhaled Oxygen Concentration - - Weight 79 kg (174 lb 2.6 oz) 11/08/2023 6:53 AM CDT Height 177.8 cm (5' 10) 11/08/2023 6:53 AM CDT Body Mass Index 24.99 11/08/2023 6:53 AM CDT documented in this encounter Discharge Instructions * Attachments The following attachments cannot be sent through Care Everywhere. * Bronchoscopy: Looking at Your Airways (Faroese) documented in this encounter Medications at Time of Discharge Medication Sig Dispensed Refills Start Date End Date acetaminophen (TylenoL) 500 mg tablet Take 1,000 mg by mouth every 6 (six) hours as needed. 01/24/2023 albuterol 90 mcg/actuation inhaler Inhale 2 puffs every 4 (four) hours as needed for wheezing or shortness of breath. 01/26/2020 allopurinoL (Zyloprim) 100 mg tablet Take 100 mg by mouth daily. 07/19/2023 amiodarone (Pacerone) 200 mg tablet Take 200 mg by mouth 2 (two) times a day. 03/14/2023 apixaban (Eliquis) 5 mg tablet Take 1 tablet by mouth daily. 02/12/[address] tablet Take 1 tablet by mouth daily. 08/20/2013 budesonide-formoteroL (Symbicort) 80-4.5 mcg/actuation inhaler Inhale 2 puffs 2 (two) times a day. 08/21/2023 carvediloL (Coreg) 12.5 mg tablet Take 12.5 mg by mouth 2 (two) times a day with meals. 02/11/2023 cholecalciferol, vitamin D3, 25 mcg (1,000 Unit) tablet Take 25 mcg by mouth daily. 08/17/2019 clopidogreL (Plavix) 75 mg tablet Take 75 mg by mouth daily. 04/18/2022 cyanocobalamin (Vitamin B-12) 1,000 mcg tablet Take 1 tablet by mouth daily. 01/26/2020 diphenhydrAMINE (BenadryL) 25 mg capsule Take 25 mg by mouth as needed for allergies. famotidine (Pepcid) 20 mg tablet Take 1 tablet by mouth daily. 01/24/2023 ferrous sulfate 325 mg (65 mg iron) DR tablet Take 65 mg of iron by mouth daily. ferrous sulfate 325 mg (65 mg iron) tablet Take 325 mg by mouth daily. fexofenadine (Joanna) 180 mg tablet Take 180 mg by mouth daily. 11/10/2021 fluticasone propionate (Flonase) 50 mcg/actuation nasal spray Administer 2 sprays into nostril(s) 2 (two) times a day. 09/03/2023 ipratropium-albuteroL (DuoNeb) 0.5-2.5 mg/3 mL nebulizer solution Inhale 3 mL 4 (four) times a day as needed. 09/05/2023 losartan (Cozaar) 25 mg tablet Take 12.5 mg by mouth daily. 01/21/2023 melatonin 5 mg capsule Take 10 mg by mouth at bedtime as needed. 11/10/2021 methIMAzole (Tapazole) 5 mg tablet Take 5 mg by mouth daily. 05/31/2023 Narcan 4 mg/actuation nasal spray Administer 4 mg into one nostril as needed. 03/17/2019 nitroglycerin (Nitrostat) 0.[address] 0.4 mg under the tongue as needed for chest pain. 08/17/2019 omeprazole (PriLOSEC) [address] capsule Take 1 capsule by mouth daily. 02/23/2020 oxyCODONE (Roxicodone) 5 mg immediate release tablet Take 5 mg by mouth as needed for pain. 01/15/2020 predniSONE (Deltasone) 20 mg tablet Take 2 tablets (40 mg total) by mouth daily. 10 tablet 11/05/2023 roflumilast (Daliresp) 500 mcg tablet Take 500 mcg by mouth daily. 09/16/2023 rosuvastatin (Crestor) 40 mg tablet Take 40 mg by mouth daily. 02/27/2019 sennosides-docusate sodium (Senokot-S) 8.6-50 mg per tablet Take 2 tablets by mouth as needed for constipation. 02/04/2023 Spiriva with HandiHaler 18 mcg inhalation capsule Inhale 1 capsule daily. 11/26/2011 documented as of this encounter OR Notes * Op Note - Harsha Roberto M.D. - 11/08/2023 7:56 AM CDT Pre-op Diagnosis Bronchitis Chronic (HCC) Chronic Obstructive Pulmonary Disease (HCC) Post-op Diagnosis Bronchitis Chronic (HCC) Chronic Obstructive Pulmonary Disease (HCC) Findings As expected Complications None Operative Note Narrative Procedures #1 Fiberoptic bronchoscopy #2 Bronchial rheoplasty for study purposes to the right lung After standard procedural pause and adequate general anesthesia the therapeutic bronchoscope was inserted through an existing endotracheal tube and inspection of the visible tracheobronchial tree completed. This demonstrated a copious amount of tenacious mucoid secretions bilaterally. The underlying mucosa was otherwise unremarkable. The rheoplasty device was then deployed through the therapeuticbronchoscope and the right lung sequentially treated starting at RB [address] to RB 1 with treatments to include the right lower lobe bronchus, right middle lobe bronchus, bronchus intermedius, and right mainstem as well as segmental and subsegmental bronchi. A total of 73 actuations were performed. The procedure was tolerated well and the patient was extubated and in stable condition when transferred to the recovery area. Washings were sent for culture. Harsha Roberto M.D. documented in this encounter Plan of Treatment Upcoming Encounters Date Type Department Care Team (Latest Contact Info) Description 12/13/2023 8:00 AM CDT Hospital Encounter Post Anesthesia Care Unit in [address] [phone] Hans Felix M.D. [address] [place] [phone] 12/13/2023 8:00 AM CDT - 12/13/2023 9:30 AM CDT Surgery [facility] OR [address] [place] [phone] Hans Felix M.D. [address] [place] [phone] BRONCHOSCOPY FLEXIBLE Pending Results Name Type Priority Associated Diagnoses Date /Time Fungal Culture, Routine Microbiology Routine Bronchitis Chronic (HCC) Chronic Obstructive Pulmonary Disease (HCC) 11/08/2023 8:14 AM CDT Mycobacterial Culture Microbiology Routine Bronchitis Chronic (HCC) Chronic Obstructive Pulmonary Disease (HCC) 11/08/2023 8:14 AM CDT Scheduled Orders Name Type Priority Associated Diagnoses Orde r Schedule Mycobacterial Culture Microbiology Routine Bronchitis Chronic (HCC) Chronic Obstructive Pulmonary Disease (HCC) Release Upon Ordering for 1 Occurrences starting 11/08/2023 until 11/17/2023 Scheduled Procedures Name Priority Associated Diagnoses Date/Ti me BRONCHOSCOPY FLEXIBLE Bronchitis Chronic (HCC) Chronic Obstructive Pulmonary Disease (HCC) 12/13/2023 8:00 AM CDT documented as of this encounter Procedures Procedure Name Priority Date/Time Associated Diagnosis Comments ADULT OXYGEN THERAPY Routine 11/08/2023 8:55 AM CDT BACTERIAL CULTURE, AEROBIC + SUSC, RESP Routine 11/08/2023 8:14 AM CDT FUNGAL SMEAR Routine 11/08/2023 8:14 AM CDT Bronchitis Chronic (HCC) Chronic Obstructive Pulmonary Disease (HCC) ACID FAST SMEAR FOR MYCOBACTERIUM Routine 11/08/2023 8:14 AM CDT Bronchitis Chronic (HCC) Chronic Obstructive Pulmonary Disease (HCC) GRAM STAIN Routine 11/08/2023 8:14 AM CDT Bronchitis Chronic (HCC) Chronic Obstructive Pulmonary Disease (HCC) FUNGAL CULTURE, ROUTINE Routine 11/08/2023 8:14 AM CDT Bronchitis Chronic (HCC) Chronic Obstructive Pulmonary Disease (HCC) BRONCHOSCOPY FLEXIBLE 11/08/2023 7:14 AM CDT Bronchitis Chronic (HCC) Chronic Obstructive Pulmonary Disease (HCC) ECG STAT 11/08/2023 6:55 AM CDT documented in this encounter Results * Bacterial Culture, Aerobic + Susceptibility, Respiratory (11/08/2023 8:14 AM CDT) Bacterial Culture, Aerobic, Resp Upper respiratory/or al microbiota 11/10/2023 9:15 AM CDT DTL Bronchial Washing 11/08/2023 8:14 AM CDT 11/08/2023 9:55 AM CDT Comment:Specimen Source Site : Wash Harsha Roberto M.D. LAB MICROBIOLOGY - G ENERAL ORDERABLES Performing Organization Address City/[facility]/ZIP Co de Phone Number [facility] [address] [place] [address], [facility] [address] [place] [address] * Fungal Smear (11/08/2023 8:14 AM CDT) Fungal Smear Negative. 11/08/2023 3:02 PM CDT DTL Wash (Bronchus) 11/08/2023 8 :14 AM CDT Harsha Roberto M.D. LAB MICROBIOLOGY - G ENERAL ORDERABLES Performing Organization Address City/[facility] Co de Phone Number [facility] [address] [place], [place] [address] [address] [place] [address] * Acid Fast Smear for Mycobacterium (11/08/2023 8:14 AM CDT) Acid Fast Smear For Mycobacterium Negative. 11/08/2023 6:22 PM CDT DTL Wash (Bronchus) 11/08/2023 8 :14 AM CDT Harsha Roberto M.D. LAB MICROBIOLOGY - G ENERAL ORDERABLES Performing Organization Address City/[facility] Co de Phone Number [facility] [address] [place] [address], [facility] [address] [place] [address] * Gram Stain (11/08/2023 8:14 AM CDT) Gram Stain Upper respiratory/ora l microbiota White blood cells, Few Epithelial cells, Rare 11/08/2023 12:38 PM CDT DTL Wash (Bronchus) 11/08/2023 8 :14 AM CDT Harsha Roberto M.D. LAB MICROBIOLOGY - G ENERAL ORDERABLES [facility] [address] [place] [address], [facility] DTL [facility] [address] [place] [address] * ECG 12 Lead (11/08/2023 6:55 AM CDT) Ventricular Rate ECG/Min 88 BPM MUSE QRSD Interval 102 ms MUSE QT Interval 402 ms MUSE QTC Interval 486 ms MUSE P [place] 77 degrees MUSE R [place] 62 degrees MUSE T Wave [place] 68 degrees MUSE 11/08/2023 6:55 AM CDT 11/08/2023 6:57 AM CDT Impressions MUSE - 11/08/2023 6:57 AM CDT Atrial flutter with variable A-V block Low anterior forces Nonspecific ST and T wave abnormality When compared with ECG of 08-Oct-2023 12:14, No significant change was found Reviewed by ALEK Weston Narrative Procedure Note Joe Rehman M.D. - 11/08/2023 IMPRESSION: Atrial flutter with variable A-V block Low anterior forces Nonspecific ST and T wave abnormality When compared with ECG of 08-Oct-2023 12:14, No significant change was found Reviewed by ALEK Weston Marifer Coleman APRN, CRNA, D.NTarunP. ECG [facility] Organization Address City/State/ZIP Co de Phone Number MUSE NA documented in this encounter Visit Diagnoses Diagnosis Bronchitis Chronic (HCC) Chronic Obstructive Pulmonary Disease (HCC) Bronchitis Chronic (HCC) Chronic Obstructive Pulmonary Disease (HCC) Bronchitis Chronic (HCC) Chronic Obstructive Pulmonary Disease (HCC) documented in this encounter Administered Medications documented in this encounter Active and Recently Administered Medications Times are shown in CDT. Scheduled Medication Order 11/06/2023 11/07/2023 11/08/2023 acetaminophen tablet 1,000 mg (TylenoL) 1,000 mg, oral, Once, On Sat11/08/23 at 0700, For 1 dose, Pre-Op 0700 (Due) ipratropium-albuteroL 0.5-2.5 mg/3 mL nebulizer solution 3 mL (DuoNeb) 3 mL, nebulization, Once, On Sat11/08/23 at 0700, For 1 dose, Pre-Op 0700 (Due) sodium chloride 0.9 % injection 3 mL 3 mL, intravenous, Every 12 hours scheduled, First dose on Sat11/08/23 at 0900, Pre-Op, Peripheral Intravenous Catheter and Rapid Infusion Catheter, when no infusion to maintain patency 0900 (Due) Continuous Medication Order 11/06/2023 11/07/2023 11/08/2023 Lactated Ringer's 20 mL/hr, intravenous, Continuous, Starting on Sat11/08/23 at 0700, Pre-Op 0700 (Due) Lactated Ringer's 20 mL/hr, intravenous, Continuous, Starting on Sat11/08/23 at 0900, PACU & Post-Op 0900 (Due) PRN Medication Order 11/06/2023 11/07/2023 11/08/2023 fentaNYL injection 25 mcg (Sublimaze) 25 mcg, intravenous, Every 2 min PRN, moderate pain or score 4-6 of 10, severe pain or score 7-10 of 10, Starting on Sat11/08/23 at 0855, PACU (only), Up to maximum total dose of 200 mcg granisetron (PF) injection 1 mg (KytriL) 1 mg, intravenous, Once as needed, nausea, vomiting, Starting on Sat11/08/23 at 0855, For 1 dose, PACU (only), If patient does not respond to ondansetron or haloperidol. (Order of antiemetic administration - ondansetron then haloperidol or droperidol then granisetron) ipratropium-albuteroL 0.5-2.5 mg/3 mL nebulizer solution 3 mL (DuoNeb) 3 mL, nebulization, Once as needed, shortness of breath, Starting on Sat11/08/23 at 0855, For 1 dose, PACU (only) sodium chloride 0.9 % injection 10 mL 10 mL, intravenous, As needed, line care, Starting on Sat11/08/23 at 0630, Pre-Op, Peripheral Intravenous Catheter and Rapid Infusion Catheter, prior to blood sampling, post blood transfusion or post blood sampling sodium chloride 0.9 % injection 3 mL 3 mL, intravenous, As needed, line care, Starting on Sat11/08/23 at 0630, Pre-Op, Prior to and following infusion and between multiple consecutive infusions: sodium chloride 0.9 % injection documented in this encounter
--- OUTSIDE RECORDS SUMMARY | 2023-11-15 07:59 | XMS_ITS | Encounter Summary ---
Author Organization [facility] Address [address] [place] [id number] Care Team Providers Care Serology Technician Name Role Phone Unavailable Primary Care Provider Unavailabl e Reason for Visit * Auth/Cert (Routine) Specialty Diagnoses / Procedures Referred By Contac t Referred To Contact Diagnoses Bronchitis Chronic (HCC) Chronic Obstructive Pulmonary Disease (HCC) Bronchitis Chronic (HCC) [J42] Chronic Obstructive Pulmonary Disease (HCC) [J44.9] Procedures CT BRONCH DX W CELL WASH FLUOR BRONCHOSCOPY FLEXIBLE Harsha Roberto M.D. [address] [place] [phone] Referral ID Status Reason Start Date Expiration Date Visits Re quested Visits Authorized [id number] 1 1 Encounter Details Date Type Department Care Team ([facility] st Contact Info) Description 11/08/2023 7:46 AM CDT Anesthesia Event RST ROMB MAIN OR [address] [place] [phone] Fox Oswald M.D. [address] [place] [phone] Brooke Tran M.D. [address] [place] [phone] Anesthesia Record Procedure Summary Procedure Name Responsible Anesthesiologist Anesthesia Start Time Anesthesia Stop Time 1st case, BRONCHOSCOPY FLEXIBLE, Rheoplast. Fox Oswald M.D. 11/08/23 0746 11/08/23 0854 Events Date Time Event Comment 11/08/2023 0746 An Start Machine/Equipme nt Checked Infection Precautions Followed Procedure/Site Verified NPO Status Verified Supine Standard ASA Monitors Applied 0749 An Induction 0751 An Intubation 0753 Turnover to Proceduralist 0756 Proc Start 0833 Turnover to ANE Staff 0835 Proc Fin 0846 Airway Removal Criteria Met 0846 Extubation/Airway Removed 0846 an stop data 0854 An End I completed my handoff to the receiving staff during which we 1. Identified the patient 2. Identified the responsible provider 3. Reviewed the pertinent medical history 4. Discussed the surgical course 5. Reviewed intra-op anesthesia management and issues during anesthesia 6. Set expectations for post-procedure period 7. Allowed opportunity for questions and acknowledgement of understanding. Meds Name Total fentanyl injection 50 mcg/mL 50 mcg lidocaine 2% (mg) injection 80 mg rocuronium 10 mg/mL injection 50 mg phenylephrine 100 mcg/mL injection 300 m cg sugammadex 100 mg/mL injection 200 mg propofol 10 mg/mL infusion 389.87 mg propofol 10 mg/mL injection 130 mg dexAMETHasone (Decadron) injection 4 mg/ mL 8 mg Lactated Ringers Free Drip 350 mL * Agents No agents on file. * Blood No blood administrations on file. Lines, Drains, and Airways Type Details Placement Removal Peripheral IV Placement Date: 10/11 ; Placement Time: 06; Catheter Size: 18 G; Orientation: Anterior, Left, Lower; Location: Forearm; Site Prep: Chlorhexidine (Preferred); Insertion Attempts: 1 11/08/23 0635 by Verito Garcia ETT Placement Date: 10/11 ; Placement Time: 075 (created via procedure documentation); Mask Ventilation: Easy mask; Technique: Video laryngoscopy; Type: Standard ETT; Single Lumen Tube Size: 8.5 mm; Cuffed: Yes; Location: Oral; Grade View: Grade 1; Insertion Attempts: 1; Placement Verification: Bilateral breath sounds, Positive ETCO2, Symmetrical chest wall movement; Removal Date: 11/08/23; Removal Time: 0846 11/08/23 0751 by Marifer Coleman APRN, CRNA, D.N.P. 11/08/23 0846 by Marifer Coleman APRN, CRNA, D.N.P. documented in this encounter Social History Tobacco Use Types Packs/Day Years Used Date Smoking Tobacco: Former Cigarettes Q uit: 2017 Smokeless Tobacco: Never Alcohol Use Standard Drinks/Week Comments Not Currently 0 (1 standard drink = 0.6 oz pur e alcohol) [facility] Utilities Answer Date Recorded In the past [...] your living situation today? I have a [facility] place to live 10/02/2023 Sex and Gender Information Value Date Recorded Sex Assigned at Male 10/02/2023 12:12 PM CDT Gender Identity Male 10/02/2023 12:12 PM CDT Sexual Orientation Straight 10/02/2023 12 :12 PM CDT documented as of this encounter OR Notes * Anesthesia Postprocedure Evaluation - Fox Oswald M.D. - 11/08/2023 10:00 AM CDT Patient: Butch Nieves Procedure Summary Date: 11/08/23 Room / Location: [place] [address] / [facility] in [place], [place] Anesthesia Start: 745 Anesthesia Stop: 853 Procedure: 1st case, BRONCHOSCOPY FLEXIBLE, Rheoplast. Diagnosis: Bronchitis Chronic (HCC) Chronic Obstructive Pulmonary Disease (HCC) (Bronchitis Chronic (HCC) [J42], Chronic Obstructive Pulmonary Disease (HCC) [J44.9].) Providers: Harsha Roberto M.D. Responsible Provider: Fox Oswald M.D. Anesthesia Type: general ASA Status: 4 Anesthesia Type: general Last vitals Vitals Value Taken Time BP 119/77 11/08/23 0920 Temp 36.2 ??C 11/08/23 0850 Pulse 95 11/08/23 0920 Resp 19 11/08/23 0920 SpO2 92 % 11/08/23 0920 Please reference Vitals flowsheet for most recent vital signs. Anesthesia Post Evaluation Cardiovascular status: hemodynamics (HR & BP) acceptable Respiratory status: patent airway with spontaneous effort Temperature: normothermic Oxygen requirements: room air Level of consciousness: awake Pain score: pain adequately controlled and/or at baseline Post Op nausea/vomiting: none Hydration status: euvolemic Comments: Patient discharged by the PACU nurse after discharge criteria were met. Notable Events No notable events documented. * Anesthesia Procedure Notes - Marifer Coleman APRN, CRNA, D.N.P. - 11/08/2023 8:00 AM CDTAssociated Order(s): Airway Airway Date/Time: 11/08/2023 7:51 AM Performed by: Marifer Coleman APRN, CRNA, D.N.P. Authorized by: Fox Oswald M.D. Patient location during procedure: OR / Procedure Area PROCEDURE DETAILS: Mask difficulty assessment: easy mask Final airway type: video laryngoscope Laryngeal Manipulation: no Final best view of glottic structures - Cormack/Lehane Score: grade 1 ETT location: oral VL device: glide scope [place] scope blade size: 4 Tube size: 8.5 ETT distance at teeth/gum: 25 Oral tube type: standard ETT Cuffed: yes Number of attempt to successful placement: 1 Airway confirmation: bilateral breath sounds, positive ETCO2 and bilateral chest rise Other previous techniques attempted: none PRE PROCEDURE DETAILS: Pre evaluation for airway management: procedure Urgency: elective Preop assessment of probable difficulty: no difficulty anticipated Preoxygenation: bag valve mask SEDATION / ANESTHESIA Anesthesia method: anesthesia POST PROCEDURE DETAILS: Procedure outcome: successful Notable Events: no complications * Anesthesia Preprocedure Evaluation - Fox Oswald M.D. - 11/07/2023 5:33 PM CDT Preprocedure Anesthesia & H&P Assessment Procedure Summary Date/Time: 11/08/23714 Procedure: 1st case, BRONCHOSCOPY FLEXIBLE, Rheoplast. - Schedule as first case if possible, per Dr. Felix IRB#[id number]. Diagnosis: Bronchitis Chronic (HCC) [J42] Chronic Obstructive Pulmonary Disease (HCC) [J44.9] Pre-op diagnosis: Bronchitis Chronic (HCC) [J42], Chronic Obstructive Pulmonary Disease (HCC) [J44.9]. Location: [place] [address] / [facility] in [place], [place] Providers: Harsha Roberto M.D. Pertinent components of the patient's history including current problem list, medical history, surgical history, family history, social history, medications and allergies were reviewed. Present illness and pre-op diagnosis were confirmed. The planned surgery / procedure was verified with the patient / legal guardian. The patient's general health condition remains unchanged RELEVANT COMORBID CONDITIONS No relevant active problems OBJECTIVE PHYSICAL EXAMINATION Airway (HEENT) Mallampati: II TM Distance: >3 FB Neck ROM: Full Mouth Opening: >3 cm Cardiovascular Rhythm: Irregular Rate: Normal Cardiovascular Assessment: cardiovascular normal Functional Capacity: <4 METS Pulmonary Pulmonary Assessment: Clear and non labored General / Constitutional Constitutional Assessment: Normal General State of Health:: calm Neurological Neurologic Assessment: alert Dental edentuous ASSESSMENT / PLAN ANESTHESIA PLAN ASA: 4 Anesthesia Plan: MAC Patient seen and allergies reviewed; anesthesia plan and risks discussed directly with patient / legal guardian, or through an contact worker; patient evaluated and approved for anesthesia / sedation Risks/Benefits/Alternatives of Blood transfusion discussed with patient / legal guardian, includingan opportunity to ask questions and/or decline some or all transfusion therapies. The patient / legal guardian consented to the use of all blood products, as deemed medically necessary Approval to Proceed: approved for anesthesia History reviewed with the patient and his friend. Plan MAC, GA prn documented in this encounter Plan of Treatment Upcoming Encounters Date Type Department Care Team (Latest Contact Info) Description 12/13/2023 8:00 AM CDT Hospital Encounter Post Anesthesia Care Unit in [place] [id number] [place] [phone] Hans Felix M.D. [address] [place] [phone] 12/13/2023 8:00 AM CDT - 12/13/2023 9:30 AM CDT Surgery RST ROMB MAIN OR [address] [place] [phone] Hans Felix M.D. [address] [place] [phone] BRONCHOSCOPY FLEXIBLE Scheduled Procedures Name Priority Associated Diagnoses Date/Ti me BRONCHOSCOPY FLEXIBLE Bronchitis Chronic (HCC) Chronic Obstructive Pulmonary Disease (HCC) 12/13/2023 8:00 AM CDT documented as of this encounter Procedures Procedure Name Priority Date/Time Associated Diagnosis Comments LDA ANE ENDOTRACHEAL AIRWAY Routine 11/08/2023 7:51 AM CDT documented in this encounter Results * LDA ANE ENDOTRACHEAL AIRWAY (11/08/2023 7:51 AM CDT) Narrative Marifer Coleman APRN, CRNA, D.N.P. - 11/08/2023 7:51 AM CDT Marifer Coleman APRN, CRNA, D.N.P. ? 11/08/2023 ??8:01 AM Airway Date/Time: 11/08/2023 7:51 AM Performed by: Marifer Coleman APRN, PEMA, D.N.P. Authorized by: Fox Oswald M.D. ?? Patient location during procedure: OR / Procedure Area PROCEDURE DETAILS: Mask difficulty assessment: easy mask Final airway type: video laryngoscope Laryngeal Manipulation: no ?? Final best view of glottic structures - Cormack/Lehane Score: grade 1 ETT location: oral VL device: glide scope [place] scope blade size: 4 Tube size: 8.5 ETT distance at teeth/gum: 25 Oral tube type: standard ETT Cuffed: yes Number of attempt to successful placement: 1 Airway confirmation: bilateral breath sounds, positive ETCO2 and bilateral chest rise Other previous techniques attempted: none PRE PROCEDURE DETAILS: Pre evaluation for airway management: procedure Urgency: elective Preop assessment of probable difficulty: no difficulty anticipated Preoxygenation: bag valve mask SEDATION / ANESTHESIA Anesthesia method: anesthesia POST PROCEDURE DETAILS: ? Procedure outcome: successful ?? Notable Events: no complications Fox Oswald M.D. ANESTHESIA ALESHA DOZIER documented in this encounter Visit Diagnoses Not on filedocumented in this encounter Administered Medications Inactive Administered Medications - up to 3 most recent administrations Medication Order MAR Action Action Date Dose Rate Site dexAMETHasone injection (Decadron) intravenous, As needed, Starting on Sat11/08/23 at 0801, Anesthesia Intra-op Given 11/08/2023 8:01 AM CDT 8 mg fentaNYL injection (Sublimaze) intravenous, As needed, Starting on Sat11/08/23 at 0750, Anesthesia Intra-op Given 11/08/2023 7:50 AM CDT 50 mcg Lactated Ringer's intravenous, Continuous Infusion: Per Instructions PRN, Starting on Sat11/08/23 at 0748, Anesthesia Intra-op New Bag 11/08/2023 7:48 AM CDT lidocaine (PF) (cardiac) injection intravenous, As needed, Starting on Sat11/08/23 at 0750, Anesthesia Intra-op Given 11/08/2023 7:50 AM CDT 80 mg phenylephrine injection intravenous, As needed, Starting on Sat11/08/23 at 0808, Anesthesia Intra-op Given 11/08/2023 8:30 AM CDT 100 mcg Given 11/08/2023 8:08 AM CDT 200 mcg propofol 10 mg/mL infusion (Diprivan) intravenous, Continuous Infusion: Per Instructions PRN, Starting on Sat11/08/23 at 0752, Anesthesia Intra-op Rate/Dose Change 11/08/2023 8:31 AM CDT 80 mcg/kg/min 37.92 mL/hr New Bag 11/08/2023 8:21 AM CDT 100 mcg/kg/min 47.4 mL/h r Rate/Dose Change 11/08/2023 8:12 AM CDT 100 mcg/kg/min 47. 4 mL/hr propofoL injection (Diprivan) intravenous, As needed, Starting on Sat11/08/23 at 0750, Anesthesia Intra-op Given 11/08/2023 7:50 AM CDT 130 mg rocuronium injection (Zemuron) intravenous, As needed, Starting on Sat11/08/23 at 0750, Anesthesia Intra-op Given 11/08/2023 7:50 AM CDT 50 mg sugammadex injection (Bridion) intravenous, As needed, Starting on Sat11/08/23 at 0833, Anesthesia Intra-op Given 11/08/2023 8:33 AM CDT 200 mg documented in this encounter
--- OUTSIDE RECORDS SUMMARY | 2023-11-15 07:59 | XMS_ITS | Clinical Summary ---
Author Organization [facility] Address [address] [place] [address] Care Team Providers Care Alodize Machine Helper Name Role Phone Unavailable Primary Care Provider Unavailabl e Source Comments Patient records contain information from all sites at [facility]. For routine questions regarding patient records, call [phone] during business hours, M-F 8:00 AM - 5:00 PM Central Time. Record requests for emergency care only can be directed to [phone] at any time.[facility] Allergies No known active allergies Medications Medication Sig Dispensed Refills Start Date End Date Status predniSONE (Deltasone) 20 mg tablet Take 2 tablets (40 mg total) by mouth daily. 10 tablet 11/05/2023 Active acetaminophen (TylenoL) 500 mg tablet Take 1,000 mg by mouth every 6 (six) hours as needed. 01/24/2023 Active albuterol 90 mcg/actuation inhaler Inhale 2 puffs every 4 (four) hours as needed for wheezing or shortness of breath. 01/26/2020 Active allopurinoL (Zyloprim) 100 mg tablet Take 100 mg by mouth daily. 07/19/[address] tablet Take 1 tablet by mouth daily. 08/20/2013 Active budesonide-formoter oL (Symbicort) 80-4.5 mcg/actuation inhaler Inhale 2 puffs 2 (two) times a day. 08/21/2023 Active clopidogreL (Plavix) 75 mg tablet Take 75 mg by mouth daily. 04/18/2022 Active fluticasone propionate (Flonase) 50 mcg/actuation nasal spray Administer 2 sprays into nostril(s) 2 (two) times a day. 09/03/2023 Active ipratropium-albuter oL (DuoNeb) 0.5-2.5 mg/3 mL nebulizer solution Inhale 3 mL 4 (four) times a day as needed. 09/05/2023 Active melatonin 5 mg capsule Take 10 mg by mouth at bedtime as needed. 11/10/2021 Active methIMAzole (Tapazole) 5 mg tablet Take 5 mg by mouth daily. 05/31/2023 Active Narcan 4 mg/actuation nasal spray Administer 4 mg into one nostril as needed. 03/17/2019 Active nitroglycerin (Nitrostat) 0.[address] 0.4 mg under the tongue as needed for chest pain. 08/17/2019 Active omeprazole (PriLOSEC) [address] capsule Take 1 capsule by mouth daily. 02/23/2020 Active oxyCODONE (Roxicodone) 5 mg immediate release tablet Take 5 mg by mouth as needed for pain. 01/15/2020 Active roflumilast (Daliresp) 500 mcg tablet Take 500 mcg by mouth daily. 09/16/2023 Active famotidine (Pepcid) 20 mg tablet Take 1 tablet by mouth daily. 01/24/2023 Active rosuvastatin (Crestor) 40 mg tablet Take 40 mg by mouth daily. 02/27/2019 Active Spiriva with HandiHaler 18 mcg inhalation capsule Inhale 1 capsule daily. 11/26/2011 Active cyanocobalamin (Vitamin B-12) 1,000 mcg tablet Take 1 tablet by mouth daily. 01/26/2020 Active cholecalciferol, vitamin D3, 25 mcg (1,000 Unit) tablet Take 25 mcg by mouth daily. 08/17/2019 Active amiodarone (Pacerone) 200 mg tablet Take 200 mg by mouth 2 (two) times a day. 03/14/2023 Active carvediloL (Coreg) 12.5 mg tablet Take 12.5 mg by mouth 2 (two) times a day with meals. 02/11/2023 Active apixaban (Eliquis) 5 mg tablet Take 1 tablet by mouth daily. 02/12/2023 Active losartan (Cozaar) 25 mg tablet Take 12.5 mg by mouth daily. 01/21/2023 Active sennosides-docusate sodium (Senokot-S) 8.6-50 mg per tablet Take 2 tablets by mouth as needed for constipation. 02/04/2023 Active fexofenadine (Joanna) 180 mg tablet Take 180 mg by mouth daily. 11/10/2021 Active ferrous sulfate 325 mg (65 mg iron) DR tablet Take 65 mg of iron by mouth daily. Active diphenhydrAMINE (BenadryL) 25 mg capsule Take 25 mg by mouth as needed for allergies. Active ferrous sulfate 325 mg (65 mg iron) tablet Take 325 mg by mouth daily. Active Encounters Date Type Department Care Team Description 11/12/2023 Orders Only Division of Pulmonary Medicine in [place], [place] [address] [place] [phone] Gildardo Canales Bronchitis Chronic (HCC) (Primary Dx); Chronic Obstructive Pulmonary Disease (HCC) 11/08/2023 7:46 AM CDT Anesthesia Event [facility] OR [address] [place] [phone] Fox Oswald M.D. Manento, Megan N, M.D. 11/08/2023 7:15 AM CDT - 11/08/2023 8:36 AM CDT [facility] [address] [place] [phone] Harsha Roberto M.D. 1st case, BRONCHOSCOPY FLEXIBLE, Rheoplast. 11/08/2023 5:53 AM CDT - 11/08/2023 9:45 AM CDT Hospital Encounter [facility] OR [address] [place] [phone] Harsha Roberto M.D. Bronchitis Chronic (HCC); Chronic Obstructive Pulmonary Disease (HCC) Discharge Disposition: Home or Self Care 11/08/2023 Orders Only Division of Pulmonary Medicine in [place], [place] [address] [place] [phone] Astrid Sullivan 11/05/2023 Orders Only Division of Pulmonary Medicine in [place], [place] [address] [place] [phone] Gildardo Canales 11/05/2023 Orders Only Division of Pulmonary Medicine in [place], [place] [address] [place] [phone] Brooke Sanabria M.D. 10/23/2023 Orders Only Division of Pulmonary Medicine in [place], [place] [address] [place] [phone] Gildardo Canales Bronchitis Chronic (HCC) (Primary Dx); Chronic Obstructive Pulmonary Disease (HCC) 10/22/2023 Orders Only Division of Pulmonary Medicine in [place], [place] [address] [place] [address] Gildardo Canales 10/08/2023 11:20 AM CDT - 10/08/2023 11:59 PM CDT Hospital Encounter Department of Laboratory Medicine and Pathology, [facility] in [place], [place] [address] [place] [phone] Fox Alvarez M.D. Bronchitis Chronic (HCC); Chronic Obstructive Pulmonary Disease (HCC) Discharge Disposition: Home or Self Care 10/08/2023 11:07 AM CDT - 10/08/2023 11:19 AM CDT Hospital Encounter Department of Radiology, [facility], in [place], [place] [address] [place] [address] Brooke Sanabria M.D. Bronchitis Chronic (HCC); Chronic Obstructive Pulmonary Disease (HCC) Discharge Disposition: Home or Self Care 10/08/2023 9:30 AM CDT Comprehensive Visit Division of Pulmonary Medicine in [place], [place] [address] [place] [phone] Brooke Sanabria M.D. Chronic Obstructive Pulmonary Disease (HCC) (Primary Dx); Bronchitis Chronic (HCC); Flutter Atrial (HCC); Embolus Pulmonary Personal History 09/19/2023 Orders Only Division of Pulmonary Medicine in [place], [place] [address] [place] [phone] Rivera Gil Bronchitis Chronic (HCC) (Primary Dx); Chronic Obstructive Pulmonary Disease (HCC) from Last 3 Months Social History Tobacco Use Types Packs/Day Years Used Date Smoking Tobacco: Former Cigarettes Q uit: 2017 Smokeless Tobacco: Never Tobacco Cessation:Counseling Given: Not Answered Alcohol Use Standard Drinks/Week Comments Not Currently 0 (1 standard drink = 0.6 oz pur e alcohol) [facility] Utilities Answer Date Recorded In [...] your living situation today? I have a [facility] place to live 10/02/2023 Sex and Gender Information Value Date Recorded Sex Assigned at Male 10/02/2023 12:12 PM CDT Gender Identity Male 10/02/2023 12:12 PM CDT Sexual Orientation Straight 10/02/2023 12 :12 PM CDT Last Filed Vital Signs Vital Sign Reading Time Taken Comments Blood Pressure 119/77 11/08/2023 9:20 AM CDT Pulse 95 11/08/2023 9:20 AM CDT Temperature 36.2 ??C (97.2 ??F) 11/08/2023 8:50 AM CD T Respiratory Rate 19 11/08/2023 9:20 AM CDT Oxygen Saturation 92% 11/08/2023 9:20 AM CDT Inhaled Oxygen Concentration - - Weight 79 kg (174 lb 2.6 oz) 11/08/2023 6:53 AM CDT Height 177.8 cm (5' 10) 11/08/2023 6:53 AM CDT Body Mass Index 24.99 11/08/2023 6:53 AM CDT Plan of Treatment Upcoming Encounters Date Type Department Care Team (Latest Contact Info) Description 12/13/2023 8:00 AM CDT Hospital Encounter Post Anesthesia Care Unit in [place], [place] [address] [place] [phone] Hans Felix M.D. [address] [place] [phone] 12/13/2023 8:00 AM CDT - 12/13/2023 9:30 AM CDT Surgery [facility] OR [address] [place] [phone] Hans Felix M.D. [address] [place] [phone] BRONCHOSCOPY FLEXIBLE Scheduled Procedures Name Priority Associated Diagnoses Date/Ti me BRONCHOSCOPY FLEXIBLE Bronchitis Chronic (HCC) Chronic Obstructive Pulmonary Disease (HCC) 12/13/2023 8:00 AM CDT Health Maintenance Due Date Last Done Comments Hepatitis C Screening 1945 Depression Screening (Annual PHQ-2) 03/11/2023 COVID-19 Vaccine (2022- 4 season) 2023 12/25/2022, 10/15/2022, 11/28/2021, Additional history exists Influenza Vaccine (#1) 2023 3, 11/15/2021, 01/11/2021, Additional history exists Creatinine Level (Kidney Fun ction Test) 02/12/2024 02/11/2023, 02/09/2023, 02/08/2023, Additional history exists Potassium Level 02/12/2024 02/11/2023, 04/2022, 02/08/2023, Additional history exists Sodium Level 02/12/2024 02/11/2023, 04/2022, 02/08/2023, Additional history exists DTaP,Tdap,and Td Vaccines (3 - Td or Tdap) 10/19/2025 10/20/2015, 01/11/2014, 01/21/2013, Additional history exists Pneumococcal vaccine (65+ years) Completed 10/20/2015, 02/10/2014, 01/11/2014, Additional history exists Zoster Vaccines Completed 12/18/2017, 11/2017, 07/09/2012 Abdominal Aortic Aneurysm (A AA) Screen Discontinued 01/29/2018, 05/03/2013, 02/13/2013 Colonoscopy Discontinued 02/12/2018 Colorectal Cancer Screening Discontinued Fall Risk Screen (Annual) Completed 11/08/2023 CT Colonography Discontinued Cologuard Discontinued FIT Discontinued Medical Devices Implanted Type Area Motor Bus Driver Device Identifier Shelf Expiration Date Model / Serial / Lot Cardiac Stent Cardiac Stent Chest Hardware E.G. Pins/Screws/R ods Hardware e.g. pins/screws/ rods Neck Hardware E.G. Pins/Screws/R ods Hardware e.g. pins/screws/ rods Back Hip Implant Hip Implant Left: Hip Imaging Marker Imaging Marker Abdomen Description:Galbladder surge ry marker Mesh Or Patch Mesh or Patch Abdomen Valve Clip Valve Clip Chest Procedures Procedure Name Priority Date/Time Associated Diagnosis [...] Chronic (HCC) Chronic Obstructive Pulmonary Disease (HCC) LDA ANE ENDOTRACHEAL AIRWAY Routine 11/08/2023 7:51 AM CDT BRONCHOSCOPY FLEXIBLE 11/08/2023 7:14 AM CDT Bronchitis Chronic (HCC) Chronic Obstructive Pulmonary Disease (HCC) ECG STAT 11/08/2023 6:55 AM CDT ECG Routine 10/08/2023 12:14 PM CDT Bronchitis Chronic (HCC) Chronic Obstructive Pulmonary Disease (HCC) Flutter Atrial (HCC) NICOTINE AND METABOLITES, S Routine 10/08/2023 11:33 AM CDT Bronchitis Chronic (HCC) Chronic Obstructive Pulmonary Disease (HCC) DX CHEST AP OR PA AND LATERAL 2 VIEWS RAD - Routine (most inpatients and all outpatients) 10/08/2023 11:14 AM CDT Bronchitis Chronic (HCC) Chronic Obstructive Pulmonary Disease (HCC) PULMONARY FUNCTION TESTS Routine 10/08/2023 7:31 AM CDT Bronchitis Chronic (HCC) Chronic Obstructive Pulmonary Disease (HCC) from Last 3 Months Results * Bacterial Culture, Aerobic + Susceptibility, Respiratory (11/08/2023 8:14 AM CDT) Bacterial Culture, Aerobic, Resp Upper respiratory/or al microbiota 11/10/2023 9:15 AM CDT DTL Bronchial Washing 11/08/2023 8:14 AM CDT 11/08/2023 9:55 AM CDT Comment:Specimen Source Site : Wash Harsha Roberto M.D. LAB MICROBIOLOGY - G ENERAL ORDERABLES [facility] [address] [place] [address], [place] DTL [facility] [place][note 2] [address] [place] [address] * Fungal Smear (11/08/2023 8:14 AM CDT) Fungal Smear Negative. 11/08/2023 3:02 PM CDT DTL Wash (Bronchus) 11/08/2023 8 :14 AM CDT Harsha Roberto M.D. LAB MICROBIOLOGY - G ENERAL ORDERABLES Performing Organization Address City/[facility]/ZIP Co de Phone Number [facility] [address] [place] [address] * Acid Fast Smear for Mycobacterium (11/08/2023 8:14 AM CDT) Acid Fast Smear For Mycobacterium Negative. 11/08/2023 6:22 PM CDT DTL Wash (Bronchus) 11/08/2023 8 :14 AM CDT Harsha Roberto M.D. LAB MICROBIOLOGY - G ENERAL ORDERABLES Performing Organization Address City/[facility]/ZIP Co de Phone Number [facility] [address] [place] [address], [facility] [address] [place] [address] * Gram Stain (11/08/2023 8:14 AM CDT) Gram Stain Upper respiratory/ora l microbiota White blood cells, Few Epithelial cells, Rare 11/08/2023 12:38 PM CDT DTL Wash (Bronchus) 11/08/2023 8 :14 AM CDT Harsha Roberto M.D. LAB MICROBIOLOGY - G ENERAL ORDERABLES Performing Organization Address City/[facility]/ZIP Co de Phone Number [facility] [address] [place] [address], [facility] [address] [place] [address] * LDA ANE ENDOTRACHEAL AIRWAY (11/08/2023 7:51 AM CDT) Narrative Marifer Coleman APRN, PEMA, D.N.P. - 11/08/2023 7:51 AM CDT Marifer Coleman APRN, CRNA, D.N.P. ? 11/08/2023 ??8:01 AM Airway Date/Time: 11/08/2023 7:51 AM Performed by: Marifer Coleman APRN, CRNA D.N.P. Authorized by: Fox Oswald M.D. ?? Patient location during procedure: OR / Procedure Area PROCEDURE DETAILS: Mask difficulty assessment: easy mask Final airway type: video laryngoscope Laryngeal Manipulation: no ?? Final best view of glottic structures - Cormack/Lehane Score: grade 1 ETT location: oral VL device: glide scope Tolar scope blade size: 4 Tube size: 8.5 [...] complications Fox Oswald M.D. ANESTHESIA ALESHA DOZIER * ECG 12 Lead (11/08/2023 6:55 AM CDT) Only the most recent of2 resultswithin the time period is included. Ventricular Rate ECG/Min 88 BPM MUSE QRSD Interval 102 ms MUSE QT Interval 402 ms MUSE QTC Interval 486 ms MUSE P [place] 77 degrees MUSE R [place] 62 degrees MUSE T Wave [place] 68 degrees MUSE 11/08/2023 6:55 AM CDT 11/08/2023 6:57 AM CDT Impressions MUSE - 11/08/2023 6:57 AM CDT Atrial flutter with variable A-V block Low anterior forces Nonspecific ST and T wave abnormality When compared with ECG of 08-Oct-2023 12:14, No significant change was found Reviewed by ALEK Weston Narrative Procedure Note Rehman, Vic, M.D. - 11/08/2023 IMPRESSION: Atrial flutter with variable A-V block Low anterior forces Nonspecific ST and T wave abnormality When compared with ECG of 08-Oct-2023 12:14, No significant change was found Reviewed by ALEK Weston Marifer Coleman APRN, CRNA, D.N.P. ECG ALESHA DOZIER MUSE NA * Nicotine and Metabolites (10/08/2023 11:33 AM CDT) Pathologist [facility] Nicotine <3.0 <3.0 ng/mL 10/09/2023 10:09 AM CDT SDS Cotinine <3.0 <3.0 ng/mL 10/09/2023 10:09 AM CDT [facility] Comment: ----ADDITIONAL INFORMATION---- This test was developed and its performance characteristics determined by [facility] in a manner consistent with CLIA requirements. This test has not been cleared or approved by the U.S. Food and Drug Administration. Blood (Blood, Venous) 10/08/2023 11:33 AM CDT 10/09/2023 7:30 AM CDT Fox Alvarez M.D. LAB BLOOD ADD-ON Performing Organization Address City/[facility] Co de Phone Number [facility] SUPPORT [place] [address] [place] [address] [facility] [address] [place] [address] [place] [address] * DX Chest AP or PA and Lateral 2 Views (10/08/2023 11:14 AM CDT) Anatomical Region Laterality Modality Chest, Thoracic RST LOS, Tho racic ARZ LOS, Thoracic FLA LOS N/A Digital Radiography Impressions 10/08/2023 11:42 AM CDT Sternotomy. Calcification aorta. Hyperinflation both lungs. Scarring in the lung bases. Anterior wedging of mid thoracic vertebral bodies. PO changes cervical spine. Narrative 10/08/2023 11:42 AM CDT EXAM: ??DX CHEST AP OR PA AND LATERAL 2 VIEWS Procedure Note Andrey Sahni M.D. - 10/08/2023 EXAM: DX CHEST AP OR PA AND LATERAL 2 VIEWS IMPRESSION: Sternotomy. Calcification aorta. Hyperinflation both lungs. Scarring inthe lung bases. Anterior wedging of mid thoracic vertebral bodies. POchanges cervical spine. Brooke BARBAG DIAGNO STIC IMAGING PROCEDURES * Pulmonary Function Tests (10/08/2023 7:31 AM CDT) PostFVC 3.44 L 10/08/2023 1:58 PM CDT [facility] PostFEV1 1.34 L 10/08/2023 1:58 PM CDT [facility] FEV1/FVC POST 38.95 % 10/08/2023 1:58 PM CDT [facility] FEF 25-75 % POST 0.32 L/s 10/08/2023 1:58 PM CDT [facility] PEF POST 4.11 L/s 10/08/2023 1:58 PM CDT [facility] PIF POST 4.66 L/s 10/08/2023 1:58 PM CDT [facility] FEF 50 % FIF 50 POST 7.13 % 10/08/2023 1:58 PM CDT [facility] FET POST 15.22 sec 10/08/2023 1:58 PM CDT [facility] DLCO SINGLE BREATH POST 9.13 ml/(min*mm Hg) 10/08/2023 1:58 PM CDT [facility] VA SINGLE BREATH POST 6.40 L 10/08/2023 1:58 PM CDT [facility] TLC POST 9.37 L 10/08/2023 1:58 PM CDT [facility] RV 5.64 L 10/08/2023 1:58 PM CDT [facility] RV % TLC POST 60.17 % 10/08/2023 1:58 PM CDT [facility] FVC 3.04 L 10/08/2023 1:58 PM CDT [facility] FEV1 1.09 L 10/08/2023 1:58 PM CDT [facility] FEV1/FVC 35.80 % 10/08/2023 1:58 PM CDT [facility] ZXY64-66% 0.24 L/s 10/08/2023 1:58 PM CDT [facility] PEF PRE 4.38 L/s 10/08/2023 1:58 PM CDT [facility] PIF PRE 4.29 L/s 10/08/2023 1:58 PM CDT [facility] FEF 50 % FIF 50 PRE 6.33 % 10/08/2023 1:58 PM CDT [facility] FET PRE 15.54 sec 10/08/2023 1:58 PM CDT [facility] SUBSTANCE POST Albuterol 10/08/2023 1:58 PM CDT [facility] 10/08/2023 7:31 AM CDT Impressions [facility] - 10/08/2023 1:58 PM CDT Abnormal. Moderate obstruction with air trapping. No significant bronchodilator response. Severe reduction in diffusion capacity secondary to a pulmonary parenchymal abnormality, vascular process, or anemia. Resting pulse oximetery is normal. Exercise not performed due to saftey concerns. Narrative Procedure Note Nanda London M.B.BTarunS. - 10/08/2023 IMPRESSION: Abnormal. Moderate obstruction with air trapping. No significantbronchodilator response. Severe reduction in diffusion capacity secondaryto a pulmonary parenchymal abnormality, vascular process, or anemia.Resting pulse oximetery is normal. Exercise not performed due to saftey concerns. Fox Alvarez M.D. PFT ORDERABLES [facility] NA from Last 3 Months
--- OUTSIDE RECORDS SUMMARY | 2023-11-15 07:59 | XMS_ITS | Encounter Summary ---
Author Organization [facility] Address [address] [place] [address] Care Team Providers Care Tax Preparer Name Role Phone Unavailable Primary Care Provider Unavailabl e Encounter Details Date Type Department Care Team (Late st Contact Info) Description 11/12/2023 Orders Only Division of Pulmonary Medicine in [place], [place] [address] [place] [phone] Gildardo Canales Bronchitis Chronic (HCC) (Primary Dx); Chronic Obstructive Pulmonary Disease (HCC) Social History Tobacco Use Types Packs/Day Years Used Date Smoking Tobacco: Former Cigarettes Q uit: 2017 Smokeless Tobacco: Never Alcohol Use Standard Drinks/Week Comments Not Currently 0 (1 standard drink = 0.6 oz pur e alcohol) [facility] Utilities Answer Date Recorded In the past 12 months has e electric, gas, oil, or water Rep threatened to shut off services in your [...] your living situation today? I have a [facility] place to live 10/02/2023 Sex and [...] Hospital Encounter Post Anesthesia Care Unit in [place], [place] [address] [place] [phone] Hans Felix M.D. [address] [place] [phone] 12/13/2023 8:00 AM CDT - 12/13/2023 9:30 AM CDT Surgery [facility] OR [address] [place] [phone] Hans Felix M.D. [address] [place] [phone] BRONCHOSCOPY FLEXIBLE Scheduled Procedures Name Priority Associated Diagnoses Date/Ti me BRONCHOSCOPY FLEXIBLE Bronchitis Chronic (HCC) Chronic Obstructive Pulmonary Disease (HCC) 12/13/2023 8:00 AM CDT documented as of this encounter Visit Diagnoses Diagnosis Bronchitis Chronic (HCC)- Primary Chronic Obstructive Pulmonary Disease (HCC) Bronchitis Chronic (HCC) Chronic Obstructive Pulmonary Disease (HCC) documented in this encounter
--- OUTSIDE RECORDS SUMMARY | 2023-11-15 07:59 | XMS_ITS | Referral Summary ---
Author Organization [facility] Address [address] [place] [address] Care Team Providers Care Tariff Compiling Clerk Name Role Phone Unavailable Primary Care Provider Unavailabl e Source Comments Patient records contain information from all sites at [facility]. For routine questions regarding patient records, call [phone] during business hours, M-F 8:00 AM - 5:00 PM Central Time. Record requests for emergency care only can be directed to [phone] at any time.[facility] Encounters Date Type Department Care Team Description 11/12/2023 Orders Only Division of Pulmonary Medicine in [place], [place] [address] [place] [address] Gildardo Canales Bronchitis Chronic (HCC) (Primary Dx); Chronic Obstructive Pulmonary Disease (HCC) 11/08/2023 Orders Only Division of Pulmonary Medicine in [place], [place] [address] [place] [address] Astrid Sullivan 11/08/2023 7:15 AM CDT - 11/08/2023 8:36 AM CDT Surgery [facility] OR [address] [place] [phone] Harsha Roberto M.D. 1st case, BRONCHOSCOPY FLEXIBLE, Rheoplast. 11/08/2023 7:46 AM CDT Anesthesia Event [facility] OR [address] [place] [phone] Fox Oswald M.D. Manento, Megan N, M.D. 11/08/2023 5:53 AM CDT - 11/08/2023 9:45 AM CDT Hospital Encounter [facility] [address] [place] [address] Harsha Roberto M.D. Bronchitis Chronic (HCC); Chronic Obstructive Pulmonary Disease (HCC) Discharge Disposition: Home or Self Care 11/05/2023 Orders Only Division of Pulmonary Medicine in [place], [place] [address] [place] [phone] Gildardo Canales 11/05/2023 Orders Only Division of Pulmonary Medicine in [place], [place] [address] [place] [phone] Brooke Sanabria M.D. 10/23/2023 Orders Only Division of Pulmonary Medicine in [place], [place] [address] [place] [phone] Gildardo Canales Bronchitis Chronic (HCC) (Primary Dx); Chronic Obstructive Pulmonary Disease (HCC) 10/22/2023 Orders Only Division of Pulmonary Medicine in [place], [place] [address] [place] [phone] Gildardo Canales 10/08/2023 11:07 AM CDT - 10/08/2023 11:19 AM CDT Hospital Encounter Department of Radiology, [facility] in [place], [place] [address] [place] [phone] Brooke Sanabria M.D. Bronchitis Chronic (HCC); Chronic Obstructive Pulmonary Disease (HCC) Discharge Disposition: Home or Self Care 10/08/2023 11:20 AM CDT - 10/08/2023 11:59 PM CDT Hospital Encounter Department of Laboratory Medicine and Pathology, [facility] in [place], [place] [address] [place] [address] Fox Alvarez M.D. Bronchitis Chronic (HCC); Chronic Obstructive Pulmonary Disease (HCC) Discharge Disposition: Home or Self Care 10/08/2023 9:30 AM CDT Comprehensive Visit Division of Pulmonary Medicine in [place], [place] [address] [place] [address] Dulohery Scrodin, Brooke M, M.D. Chronic Obstructive Pulmonary Disease (HCC) (Primary Dx); Bronchitis Chronic (HCC); Flutter Atrial (HCC); Embolus Pulmonary Personal History 09/19/2023 Orders Only Division of Pulmonary Medicine in [place], [place] [address] [place] [address] Rivera Gil Bronchitis Chronic (HCC) (Primary Dx); Chronic Obstructive Pulmonary Disease (HCC) from Last 3 Months Allergies No known active allergies Medications Medication [...] Take 325 mg by mouth daily. Active Social History Tobacco Use Types Packs/Day Years Used Date Smoking Tobacco: Former Cigarettes Q uit: 2017 Smokeless Tobacco: Never Tobacco Cessation:Counseling Given: Not Answered Alcohol Use Standard Drinks/Week Comments Not Currently 0 (1 standard drink = 0.6 oz pur e alcohol) [facility] Utilities Answer Date [...] situation today? I have a [facility] place to live 10/02/2023 Sex and [...] Hospital Encounter Post Anesthesia Care Unit in [place], [place] [address] [place] [phone] Hans Felix M.D. [address] [place] [phone] 12/13/2023 8:00 AM CDT - 12/13/2023 9:30 AM CDT Surgery [facility] OR [address] [place] [phone] Hans Felix M.D. [address] [place] [phone] BRONCHOSCOPY FLEXIBLE Scheduled Procedures Name Priority Associated Diagnoses Date/Ti me BRONCHOSCOPY FLEXIBLE Bronchitis Chronic (HCC) Chronic Obstructive Pulmonary Disease (HCC) 12/13/2023 8:00 AM CDT Medical Devices Implanted Type Area Account Manager Trainee Device Identifier Shelf Expiration Date Model / [...] M.D. LAB MICROBIOLOGY - G ENERAL ORDERABLES [facility] [address] [place] [address], [facility] 200 [place] [address] * Fungal Smear (11/08/2023 8:14 AM CDT) Fungal Smear Negative. 11/08/2023 3:02 PM CDT DTL Wash (Bronchus) 11/08/2023 8 :14 AM CDT Harsha Roberto M.D. LAB MICROBIOLOGY - G ENERAL ORDERABLES Performing Organization Address City/[facility]/ZIP Co de Phone Number [facility] [address] [place] [address], [facility] 200 [place] [address] * Acid Fast Smear for Mycobacterium (11/08/2023 8:14 AM CDT) Acid Fast Smear For Mycobacterium Negative. 11/08/2023 6:22 PM CDT DTL Wash (Bronchus) 11/08/2023 8 :14 AM CDT Harsha Roberto M.D. LAB MICROBIOLOGY - G ENERAL ORDERABLES Performing Organization Address City/[facility]/ZIP Co de Phone Number [facility] [address] [place] [address], [facility] [address] [place] [address] * Gram Stain (11/08/2023 8:14 AM CDT) Gram Stain Upper respiratory/ora l microbiota White blood cells, Few Epithelial cells, Rare 11/08/2023 12:38 PM CDT DTL Wash (Bronchus) 11/08/2023 8 :14 AM CDT Harsha Roberto M.D. LAB MICROBIOLOGY - G ENERAL ORDERABLES [facility] [address] [place] [address], [place] DTL [facility] [address] [place] [address] * LDA ANE ENDOTRACHEAL AIRWAY (11/08/2023 7:51 AM CDT) Narrative Marifer Coleman APRN, CRNA D.N.P. - 11/08/2023 7:51 AM CDT Marifer Coleman APRN, CRNA D.N.P. ? 11/08/2023 ??8:01 AM Airway Date/Time: 11/08/2023 7:51 AM Performed by: Marifer Coleman APRN, CRNA, D.N.P. Authorized by: Fox Oswald M.D. ?? Patient location during procedure: OR / Procedure Area PROCEDURE DETAILS: Mask difficulty assessment: easy mask Final airway type: video laryngoscope Laryngeal Manipulation: no ?? Final best view of glottic structures - Cormack/Lehane Score: grade 1 ETT location: oral VL device: glide scope [place] scope blade size: 4 Tube size: 8.5 [...] MUSE QTC Interval 486 ms MUSE P [place] 77 degrees MUSE R [place] 62 degrees MUSE T Wave [place] 68 degrees MUSE 11/08/2023 6:55 AM CDT [...] [place] Marifer Coleman APRN, CRNA, D.N.P. ECG ORDE RABLES Performing Organization Address [facility] Co de Phone Number MUSE NA * Nicotine and Metabolites (10/08/2023 11:33 AM CDT) [facility] Nicotine <3.0 <3.0 ng/mL 10/09/2023 10:09 AM CDT [facility] Cotinine <3.0 <3.0 ng/mL 10/09/2023 10:09 AM CDT [facility] Comment: ----ADDITIONAL INFORMATION---- This test was developed and its performance characteristics determined by [facility] in a manner consistent with CLIA requirements. This test has not been cleared or approved by the U.S. Food and Drug Administration. Blood (Blood, Venous) 10/08/2023 11:33 AM CDT 10/09/2023 7:30 AM CDT Fox Alvarez M.D. LAB BLOOD ADD-ON [facility] [place] [address] [place] [address] [facility] [address] [place] [address] [place] [address] * DX Chest AP or PA and [...] thoracic vertebral bodies. POchanges cervical spine. Brooke SAUCEDA DIAGNO STIC IMAGING PROCEDURES * Pulmonary Function Tests (10/08/2023 7:31 AM CDT) PostFVC 3.44 L 10/08/2023 1:58 PM CDT [facility] PostFEV1 1.34 L 10/08/2023 1:58 PM CDT [facility] FEV1/FVC POST 38.95 % 10/08/2023 1:58 PM CDT [facility] FEF 25-75 % POST 0.32 L/s 10/08/2023 1:58 PM CDT [facility] PEF POST 4.11 L/s 10/08/2023 1:58 PM CDT [facility] PIF POST 4.66 L/s 10/08/2023 1:58 PM CDT [facility] FEF 50 % FIF 50 POST 7.13 % 10/08/2023 1:58 PM CDT [facility] FET POST 15.22 sec 10/08/2023 1:58 PM CDT [facility] DLCO SINGLE BREATH POST 9.13 ml/(min*mm Hg) 10/08/2023 1:58 PM CDT [facility] VA SINGLE BREATH POST 6.40 L 10/08/2023 1:58 PM CDT [facility] TLC POST 9.37 L 10/08/2023 1:58 PM CDT [facility] RV 5.64 L 10/08/2023 1:58 PM CDT [facility] RV % TLC POST 60.17 % 10/08/2023 1:58 PM CDT [facility] FVC 3.04 L 10/08/2023 1:58 PM CDT [facility] FEV1 1.09 L 10/08/2023 1:58 PM CDT [facility] FEV1/FVC 35.80 % 10/08/2023 1:58 PM CDT [facility] PXS94-12% 0.24 L/s 10/08/2023 1:58 PM CDT [facility] PEF PRE 4.38 L/s 10/08/2023 1:58 PM CDT [facility] PIF PRE 4.29 L/s 10/08/2023 1:58 PM CDT [facility] FEF 50 % FIF 50 PRE 6.33 % 10/08/2023 1:58 PM CDT [facility] FET PRE 15.54 sec 10/08/2023 1:58 PM CDT [facility] SUBSTANCE POST Albuterol 10/08/2023 1:58 PM CDT [facility] 10/08/2023 7:31 AM CDT Impressions [facility] - 10/08/2023 1:58 PM CDT Abnormal. Moderate [...] saftey concerns. Fox Alvarez M.D. PFT ORDERABLES [facility] NA from Last 3 Months
--- OUTSIDE RECORDS SUMMARY | 2023-11-15 07:59 | XMS_ITS ---
Author Organization [facility] Address [address] [place] [address] Care Team Providers Care Artificial Glass Eye Maker Name Role Phone Unavailable Unavailable Unavailable Surgery Details Not on file Complications Check Surgery Details section. Procedure Estimated Blood Loss Check Surgery Details section. Procedure Findings Check Surgery Details section. Procedure Specimens Taken Check Surgery Details section.
--- OUTSIDE RECORDS SUMMARY | 2023-11-15 08:00 | XMS_ITS | Encounter Summary ---
Author Organization [facility] Address [address] [place] [address] Care Team Providers Care Director Of Student Financial Services Name Role Phone Unavailable Primary Care Provider Unavailabl e Encounter Details Date Type Department Care Team (Late st Contact Info) Description 10/23/2023 Orders Only Division of Pulmonary Medicine in [place], [place] [address] [place] [address] Gildardo Canales Bronchitis Chronic (HCC) (Primary Dx); Chronic Obstructive Pulmonary Disease (HCC) Social History Tobacco Use Types Packs/Day Years Used Date Smoking Tobacco: Never Assessed [facility] Utilities Answer Date Recorded In the past [...] your living situation today? I have a [facility] place to live 10/02/2023 Sex and Gender [...] Hospital Encounter Post Anesthesia Care Unit in [place], [place] [address] [place] [phone] Hans Felix M.D. [address] [place] [phone] 12/13/2023 8:00 AM CDT - 12/13/2023 9:30 AM CDT Surgery [facility] OR [address] [place] [phone] Hans Felix M.D. [address] [place] [phone] BRONCHOSCOPY FLEXIBLE Scheduled Procedures Name Priority Associated Diagnoses Date/Ti me BRONCHOSCOPY FLEXIBLE Bronchitis Chronic (HCC) Chronic Obstructive Pulmonary Disease (HCC) 12/13/2023 8:00 AM CDT documented as of this encounter Visit Diagnoses Diagnosis Bronchitis Chronic (HCC)- Primary Chronic Obstructive Pulmonary Disease (HCC) Bronchitis Chronic (HCC) Chronic Obstructive Pulmonary Disease (HCC) documented in this encounter
--- OUTSIDE RECORDS SUMMARY | 2023-11-15 08:00 | XMS_ITS | Encounter Summary ---
Author Organization [facility] Address [address] [place] [address] Care Team Providers Care Fitness Specialist Name Role Phone Unavailable Primary Care Provider Unavailabl e Encounter Details Date Type Department Care Team (Late st Contact Info) Description 02/06/2018 [facility] [address] [place] [address] Wesley Dugan M.D. [address] [place] [phone] Graves' Disease (Primary Dx) Social History Tobacco [...] Hospital Encounter Post Anesthesia Care Unit in [place], [place] [address] [place] [phone] Hans Felix M.D. [address] [place] [phone] 12/13/2023 8:00 AM CDT - 12/13/2023 9:30 AM CDT Surgery [facility] OR [address] [place] [phone] Hans Felix M.D. [address] [place] [address] BRONCHOSCOPY FLEXIBLE Scheduled Procedures Name Priority Associated Diagnoses Date/Ti me BRONCHOSCOPY FLEXIBLE Bronchitis Chronic (HCC) Chronic Obstructive Pulmonary Disease (HCC) 12/13/2023 8:00 AM CDT documented as of this encounter Visit Diagnoses Diagnosis Graves' Disease- Primary Bronchitis Chronic (HCC) Chronic Obstructive Pulmonary Disease (HCC) documented in this encounter
--- OUTSIDE RECORDS SUMMARY | 2023-11-15 08:00 | XMS_ITS | Encounter Summary ---
Author Organization [facility] Address [address] [place] [address] Care Team Providers Care Boiler Or Engine Operator Name Role Phone Unavailable Primary Care Provider Unavailabl e Reason for Referral * Outpatient (Routine) - Closed Specialty Diagnoses / Procedures Referred By Kajal ramirez Referred To Contact Diagnoses Bronchitis Chronic (HCC) Chronic Obstructive Pulmonary Disease (HCC) Procedures DX Chest AP or PA and Lateral 2 Views Brooke Sanabria M.D. [address] [place] [address] [facility] Referral ID Status Reason Start Date Expiration Date Visits Re quested Visits Authorized [id number] Closed 10/08/2023 10/07/2024 1 1 * Outpatient (Routine) - Closed Specialty Diagnoses / Procedures Referred By Kajal ramierz Referred To Contact Diagnoses Bronchitis Chronic (HCC) Chronic Obstructive Pulmonary Disease (HCC) Flutter Atrial (HCC) Procedures ECG 12 Lead Brooke Sanabria M.D. [address] [place] [address] [facility] Referral ID Status Reason Start Date Expiration Date Visits Re quested Visits Authorized [id number] Closed 10/08/2023 10/07/2024 1 1 Reason for Visit * Outpatient (Routine) - Closed Specialty Diagnoses / Procedures Referred By Contac t Referred To Contact Pulmonary Medicine Diagnoses Bronchitis Chronic (HCC) Chronic Obstructive Pulmonary Disease (HCC) Fox Alvarez M.D. [address] [place] [address] [facility] Referral ID Status Reason Start Date Expiration Date V isits Requested Visits Authorized [id number] Closed Specialty Services Required 09/19/2023 03/20/2025 1 1 Encounter Details Date Type Department Care Team (Latest Contact Info) Description 10/08/2023 9:30 AM CDT Comprehensive Visit Division of Pulmonary Medicine in [place], [place] [address] [place] [phone] Brooke Sanabria M.D. [address] [place] [address] Chronic Obstructive Pulmonary Disease (HCC) (Primary Dx); Bronchitis Chronic (HCC); Flutter Atrial (HCC); Embolus Pulmonary Personal History Social History Tobacco Use Types Packs/Day Years Used Date Smoking Tobacco: Never Assessed [facility] Utilities Answer Date Recorded In the past 12 months has th e electric, gas, oil, or water [employer] threatened to shut off services in your [...] your living situation today? I have a [facility] place to live 10/02/2023 Sex and [...] Hospital Encounter Post Anesthesia Care Unit in [place] [id number] [place] [phone] Hans Felix M.D. [address] [place] [phone] 12/13/2023 8:00 AM CDT - 12/13/2023 9:30 AM CDT Surgery [facility] OR [address] [place] [phone] Hans Felix M.D. [address] [place] [phone] BRONCHOSCOPY FLEXIBLE Scheduled Procedures Name Priority Associated Diagnoses Date/Ti me BRONCHOSCOPY FLEXIBLE Bronchitis Chronic (HCC) Chronic Obstructive Pulmonary Disease (HCC) 12/13/2023 8:00 AM CDT documented as of this encounter Results * ECG 12 Lead (10/08/2023 12:14 PM CDT) Ventricular Rate ECG/Min 105 BPM MUSE QRSD Interval 100 ms MUSE QT Interval 388 ms MUSE QTC Interval 512 ms MUSE R [place] 61 degrees MUSE T Wave [place] 76 degrees MUSE 10/08/2023 12:1 4 PM CDT 10/08/2023 4:09 PM CDT Impressions MUSE - 10/08/2023 12:47 PM CDT Atrial flutter with variable A-V block Low anterior forces Nonspecific ST and T wave abnormality No previous ECGs available Revised Report Narrative Procedure Note Vic Petty Jr., M.D. - 10/08/2023 IMPRESSION: Atrial flutter with variable A-V block Low anterior forces Nonspecific ST and T wave abnormality No previous ECGs available Revised Report Brooke Mulligan M.D. ECG ORDERA BLES MUSE NA * DX Chest AP or PA and [...] thoracic vertebral bodies. POchanges cervical spine. Brooke Mulligan M.D. IMG DIAGNO STIC IMAGING PROCEDURES documented in this encounter Visit Diagnoses Diagnosis Chronic Obstructive Pulmonary Disease (HCC)- Primary Bronchitis Chronic (HCC) Flutter Atrial (HCC) Embolus Pulmonary Personal History Bronchitis Chronic (HCC) Chronic Obstructive Pulmonary Disease (HCC) Bronchitis Chronic (HCC) Chronic Obstructive Pulmonary Disease (HCC) documented in this encounter
--- OUTSIDE RECORDS SUMMARY | 2023-11-15 08:00 | XMS_ITS | Continuity of Care Document ---
[facility] [address] [place] [address] Phone Care Team Providers Care Organizational Development Manager Name Role Phone Malachi Beth NP Unavailable Unavailable Allergies, Adverse Reactions, Alerts Substance Reaction Status Criticality No Known Drug Allergies Active No I nformation Medications Medication Instructions Dosage Effective Dates (start - stop) Status Comments loratadine 10 mg capsule take 1 by Oral route every day 1 - Active atenolol 25 mg tablet take 1 tablet by oral route every day 25 MG - Active ipratropium-albutero l 18 mcg-103 mcg/actuation Aerosol Inhaler inhale 2 puff by INHALATION route every day - Active Flonase 50 mcg/actuation Nasal [place] spray 2 spray by intranasal route every day in each nostril 2 spray - Active Symbicort 80 mcg-4.5 mcg/actuation HFA Aerosol Inhaler inhale 2 puff by inhalation route 2 times every day in the morning and evening 2.00 puff - Active albuterol sulfate HFA 90 mcg/actuation Aerosol Inhaler inhale 2 puff by inhalation route every 4 hours as needed 2 puff - Active Vitamin D2 50,000 unit capsule take 1 capsule by oral route every week - Active Spiriva with HandiHaler 18 mcg & inhalation capsules inhale 1 capsule by inhalation route every day - Active nitroglycerin 0.[address] 1 tablet by sublingual route at the first sign of an attack; no more than 3 tabs are recommended within a 15 minute period. 0.3 MG - Active ezetimibe 10 mg tablet take 1 tablet by oral route every day 10 MG - Active aspirin 81 mg tablet,delayed release take 1 tablet by oral route every day 81 MG - Active cyanocobalamin (vit B-12) 1,000 mcg [...] Min Pain Assessment And Follow Up Plan [facility] Therapeutic Procedure Neuromuscular Re-education Therapeutic Procedure Therapeutic Activities Neuromuscular Re-education Est Pt Eval 25 Min Assay of amphetamine or methamphetamine Assay of cocaine or metabolite 15 Assay of methadone Opiate(s), drug and metabolites, each pr ocedure Drug confirmation, each procedure Pain Assessment And Follow Up Plan Docum ent Inj Anes Epidur; Lumb/sac 1 Le 15 [...] Pt Eval 25 Min [facility], [address], [place], [place], [address], [place] tel:[phone] [facility] Postlaminecto my syndrome, not elsewhere classifiedLow back painOther cervical disc degeneration, unsp cervical regionLong term (current) use of opiate analgesicOthe r spondylosis with radiculopathy , lumbar regionObesity , unspecified 7 Ignacia Murillo [address], [facility] , [place], [address], [place]. tel:[phone] Referring Provider: Miri Amaya, [address] [facility] [address] [facility] [address] [place], [address]. tel:[phone] Est Pt Eval 25 Min [facility], [address], [place], [place], [address], [place] tel:[phone] [facility] alf (current) use of opiate analgesicLow back painCervicalg iaPostlaminec abel syndrome, not elsewhere classified 7 No Information Referring Provider: Miri Amaya, [address] [place] [address] [address] [place], [address]. tel:[phone] Est Pt Eval 25 Min [facility], [address], [place], [place], [address], [place] tel:[phone] [facility] alf (current) use of opiate analgesicLow back painCervicalg iaPostlaminec abel syndrome, not elsewhere classified Nov-0 6 No Information Referring Provider: Miri Amaya, [address] [place] [address] [address] [place], [address]. tel:[phone] Est Pt Eval 25 Min [facility], [address], [place], [place], [address], [place] tel:[phone] [facility] alf (current) use of opiate analgesicCerv icalgiaLow back painPostlamin ectomy syndrome, not elsewhere classified Sep-0 - 6 No Information Referring Provider: Miri Amaya, [address] [place] [address] [address] [place], [address]. tel:[phone] Est Pt Eval 25 Min [facility], [address], [place], [place], [address], [place] tel:[phone] [facility] Postlaminecto my syndrome, not elsewhere classifiedLow back painCervicalg iaLong term (current) use of opiate analgesic Col[place]-0 6 No Information Referring Provider: Miri Amaya, [address] [place] [address] [address] [place], [address]. tel:[phone] Est Pt Eval 15 Min [facility], [address], [place], [place], [address], [place] tel:[phone] [facility] Other spondylosis with radiculopathy , lumbar regionObesity ferry terminal agent (current) use of opiate analgesicCarp al tunnel syndrome, right upper limb 0-201 6 Openda Too. [address], [place], [address], [place]. tel:[phone] Miri Vargas.Refe rring Provider: Miri Amaya, [address] [place] [address] [address] [place], [address]. tel:[phone] Est Pt Eval 15 Min [facility], [address], [place], [place], [address], [place] tel:[phone] [facility] Other spondylosis with radiculopathy , lumbar regionObesity alf (current) use of opiate analgesicCarp al tunnel syndrome, right upper limb 8-201 6 Openda Too. [address], [place], [address], [place]. tel:[phone] Referring Provider: Miri Amaya, [address] [place] [address] [address] [place], [address]. tel:[phone] Est Pt Eval 15 Min [facility], [address], [place], [place], [address], [place] tel:[phone] [facility] Carpal tunnel syndrome, right upper limbLong term (current) use of opiate analgesicObes ityOther spondylosis with radiculopathy , lumbar region 6 Openda Too. [address], [place], [address], [place]. tel:[phone] Referring Provider: Miri Amaya, [address] [place] [address] [address] [place], [address]. tel:[phone] [facility], [address], [place], [place], [address], [place] tel:[phone] [facility] 7390 No Information 5 [facility] [place]. [address], [place], [address], [place]. [phone] Referring Provider: Miri Amaya, [address] [place] [address] [address] [place], [address]. tel:[phone] Est Pt Eval 15 Min [facility], [facility], [address], [place], [place], [address], [place] tel:[phone] [facility] Other spondylosis with radiculopathy , lumbar regionObesity alf (current) use of opiate analgesic Feb- Openda Too. [address], [place], [address], [place]. tel:[phone] Referring Provider: Miri Amaya, [address] [place] [address] [address] [place], [address]. tel:[phone] [facility], [address], [place], [address], [place] tel:[phone] [facility] 7390 No Information 5 [facility] [place]. [address], [place], [address], [place]. tel:[phone] Referring Provider: Miri Amaya, [address] [place] [address] [address] [place], [address]. tel:[phone] [facility], [address], [place], [address], [place] tel:[phone] [facility] 7390 No Information 5 [facility] [place]. [address], [place], [address], [place]. tel:[phone] Referring Provider: Miri Amaya, [address] [place] [address] [address] [place], [address]. 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 [address], [place], [place], [address], [place]. tel:[phone] Referring Provider: Miri Amaya, [address] [place] [address] [address] [place], [place], [address]. [phone] [facility] [place], [address], [place], [address], [place] tel:[phone] [facility] No Information Sep-3 0-201 5 Lazaro Zendejas. [address], [place], [place], [address], [place]. tel:[phone] Referring Provider: Aashish Ly, [address], [place], [address]. tel:[phone] [facility], [address], [place], [place], [address], [place] tel:[phone] [facility] [place] No Information Sep-3 0-201 5 Lazaro Zendejas. [address], [place], [place], [address], [place]. tel:[phone] Referring Provider: Miri Amaya, [address] [place] [address] [address] [place], [address]. [phone] Est Pt Eval 25 Min [facility], [address], [place], [place], [address], [place] tel:[phone] [facility] No Information Nov-0 8- 5 Openda Too. [address], [place], [address], [place]. [phone] Referring Provider: Miri Amaya, [address] [place] [address] [address] [place], [address]. tel:[phone] [facility], [address], [place], [place], [address], [place] tel:[phone] [facility] 7390 No Information Aug-2 3-201 5 Herminia Swapna. [address], [place], [place], [address], [place]. tel:[phone] Referring Provider: Miri Amaya, [address] [place] [address] [address] [place], [address]. tel:[phone] [facility], [facility], [address], [place], [place], [address], [place] tel:[phone] [facility] 7390 No Information 0- 5 Herminia Swapna. [address], [place], [place], [address], [place]. tel:[phone] Referring Provider: Miri Amaya, [address] [place] [address] [address] [place], [address]. tel:[phone] Est Pt Eval 25 Min [facility], [facility], [address], [place], [place], [address], [place] tel:[phone] [facility] No Information Aug-0 9- 5 King AZEEM Zendejas. [address], [facility] , [place], [place], [address], [place]. tel:[phone] Referring Provider: Miri Amaya, [address] [place] [address] [address] [place], [address]. tel:[phone] [facility], [address], [place], [place], [address], [place] tel:[phone] [facility] No Information 5 Herminia Swapna. [address], [place], [place], [address], [place]. tel:[phone] Referring Provider: Miri Amaya, [address] [place] [address] [address] [place]astroent[place], [place], [address]. tel:[phone] [facility], [address], [place], [place], [address], [place] tel:[phone] [facility] No Information 5 Herminia Swapna. [address], [place], [place], [address], [place]. tel:[phone] Referring Provider: Miri Amaya, [address] [place] [address] [address] [place], [address]. tel:[phone] [facility], [address], [place], [place], [address], [place] tel:[phone] [facility] 7390 No Information 5 Barth[facility] PT [place]. [address], [place], [address], [place]. tel:[phone] Referring Provider: Miri Amaya, [address] [place] [address] [address] [place], [address]. tel:[phone] Est Pt Eval 25 Min [facility], [address], [place], [place], [address], [place] tel:[phone] [facility] No Information 5 Lazaro Zendejas. [address], [place], [place], [address], [place]. tel:[phone] Referring Provider: Miri Amaya, [address] [place] [address] [address] [place], [place], [address]. tel:[phone] Est Pt Eval 25 Min [facility], [address], [place], [place], [address], [place] tel:[phone] [facility] No Information 5 King AZEEM Zendejas. [address], [facility] , [place], [place], [address], [place]. tel:[phone] Referring Provider: Miri Amaya, [address] [place] [address] [address] [place] [facility] [place], [place], [address]. tel:[phone] Est Pt Eval 25 Min [facility], [address], [place], [place], [address], [place] tel:[phone] [facility] No Information 5 King AZEEM Zendejas. [address], [facility] , [place], [place], [address], [place]. tel:[phone] Referring Provider: Miri Amaya, [address] [place] [address] [address] [place], [address]. tel:[phone] Est Pt Eval 15 Min [facility], [address], [place], [place], [address], [place] tel:[phone] [facility] No Information No Information Referring Provider: Miri Amaya, [address] [place] [address] [address] [place], [address]. tel:[phone] [facility], [address], [place], [address], [place] tel:[phone] [facility] No Information [facility]. [address], [place], [address], [place]. Referring Provider: Ozzie Hyman MD, [address] [place] [address] [facility], [place], [address]. tel:[phone] [facility], [address], [place], [place], [address], [place] tel:[phone] [facility] No Information Boogie Horne. [address] [place], [address] [facility], [place], [address]. tel:[phone] Referring Provider: Miri Amaya, [address] [place] [address] [address] [place] [facility] [place], [place], [address]. tel:[phone] Est Pt Eval 15 Min [facility], [address], [place], [place], [address], [place] tel:[phone] [facility] No Information 5 No Information Referring Provider: Miri Amaya, [address] [place] [address] [address] [place], [address]. tel:[phone] Est Pt Eval 15 Min [facility], [address], [place], [place], [address], [place] tel:[phone] [facility] No Information Dec-1 1-201 4 No Information Referring Provider: Miri Amaya, [address] [place] [address] [address] [place], [address]. tel:[phone] Est Pt Eval 25 Min [facility], [address], [place], [place], [address], [place] tel:[phone] [facility] No Information 4 Bart Amy. [address], [place], [address], [place]. tel:[phone] Referring Provider: Miri Amaya, [address] [place] [address] [address] [place], [address]. tel:[phone] [facility], [address], [place], [address], [place] tel:[phone] [facility] No Information 4 Gwyn Hoffman. [address] [place], [facility], [place], [address]. tel:[phone] Referring Provider: Dalton Avila, [address] [place] [facility], [place], [address]. tel:[phone] [facility], [address], [place], [place], [address], [place] tel:[phone] [facility] [place] No Information 4 Gwyn Hoffman. [address] [place], [facility], [place], [address]. tel:[phone] Referring Provider: Miri Amaya, [address] [place] [address] [address] [place], [address]. tel:[phone] Est Pt Eval 25 Min [facility], [address], [place], [place], [address], [place] tel:[phone] [facility] No Information 4 Vinnie Berrios. [address] [place], [address], [place]. Referring Provider: Miri Amaya, [address] [place] [address] [address] [place], [address]. tel:[phone] [facility], [address], [place], [address], [place] tel:[phone] [facility] [place] No Information Nov- 4 Gwyn Hoffman. [address] [place], [facility], [place], [address]. tel:[phone] Referring Provider: Dalton Avila, [address] [place] [facility], [place], [address]. tel:[phone] [facility], [address], [place], [place], [address], [place] tel:[phone] [facility] No Information 4 Gwyn Hoffman. [address] [place], [facility], [place], [address]. tel:[phone] Referring Provider: Miri Amaya, [address] [place] [address] [address] [place], [address]. tel:[phone] Est Pt Eval 25 Min [facility], [address], [place], [place], [address], [place] tel:[phone] [facility] No Information 4 Vinnie Berrios. [address] [place], [address], [place]. Referring Provider: Miri Amaya, [address] [place] [address] [address] [place], [address]. tel:[phone] Psychiatric Diagnostic Evaluation [facility], [facility], [address], [place], [place], [address], [place] tel:[phone] Con[facility] 7390 No Information Lexau Navi. [address], [place], [place], [address], [place]. tel:[phone] Referring Provider: Miri Amaya, [address] [place] [address] [address] [place], [address]. tel:[phone] Est Pt Eval 25 Min [facility], [facility], [address], [place], [place], [address], [place] tel:[phone] [facility] No Information No Information Referring Provider: Miri Amaya, [address] [place] [address] [address] [place], [address]. tel:[phone] Est Pt Eval 25 Min [facility], [facility], [address], [place], [place], [address], [place] tel:[phone] [facility] No Information No Information Referring Provider: Miri Amaya, [address] [place] [address] [address] [place], [address]. tel:[phone] Est Pt Eval 15 Min [facility], [facility], [address], [place], [place], [address], [place] tel:[phone] [facility] No Information 4 No Information Referring Provider: Miri Amaya, [address] [place] [address] [address] [place], [address]. tel:[phone] [facility], [address], [place], [place], [address], [place] tel:[phone] [facility] No Information 4 No Information Referring Provider: Miri Amaya, [address] [place] [address] [address] [place], [address]. tel: [phone] Est Pt Eval 25 Min [facility], [address], [place], [place], [address], [place] tel:[phone] [facility] No Information Vinnie Nyei. [address] [place], [address], [place]. Referring Provider: Miri Amaya, [address] [place] [address] [address] [place], [address]. tel:[phone] Offic/outpt E&m Estab Mod-hi 2 [facility], [address], [place], [place], [address], [place] tel:[phone] [facility] No Information 4 Vinnie Nyei. [address] [place], [address], [place]. Referring Provider: Miri Amaya, [address] [place] [address] [address] [place], [address]. tel: [phone] [facility], [address], [place], [place], [address], [place] tel:[phone] [facility] No Information 4 No Information Referring Provider: Miri Amaya, [address] [place] [address] [address] [place], [address]. tel:[phone] Offic/outpt E&m Estab Mod-hi 2 [facility], [address], [place], [place], [address], [place] tel:[phone] [facility] No Information 4 [facility]. [address] [place], [address], [place]. Referring Provider: Miri Amaya, [address] [place] [address] [address] [place], [address]. tel:[phone] Offic/outpt E&m Estab Mod-hi 2 [facility], [facility], [address], [place], [place], [address], [place] tel:[phone] [facility] No Information 4 [facility]. [address] [place], [address], [place]. Referring Provider: Miri Amaya, [address] [place] [address] [address] [place] [place], [place], [address]. tel:[phone] [facility], [address], [place], [place], [address], [place] tel:[phone] [facility] No Information 4 No Information Referring Provider: Miri Amaya, [address] [place] [address] [address] [place] [facility] [place], [place], [address]. tel:[phone] [facility], [address], [place], [place], [address], [place] tel:[phone] [facility] No Information 4 Lazaro Zendejas. [address], [place], [place], [address], [place]. tel:[phone] Referring Provider: Miri Amaya, [address] [place] [address] [address] [place], [address]. tel:[phone] Offic/outpt E&m New Mod-hi 45 [facility], [address], [place], [address], [place] tel:[phone] [facility] No Information 4 Vinnie Berrios. [address] [facility], [place], [address], [place]. Referring Provider: Miri Amaya, [address] [facility] [address] [place], [address]. tel:[phone] Family History Family Member Type Diagnosis Age At Onset N/A Problem (finding) No Significant Family H istory Payers Payer name Insurance type Covered alliance party ID Authoriza tion(s) [employer] Medicare PPO 16 [id number] Social History Type Description Quantity Date Captured [...]
--- OUTSIDE RECORDS SUMMARY | 2023-11-15 08:00 | XMS_ITS | Encounter Summary ---
Author Organization [facility] Address [address] [place] [address] Care Team Providers Care Youth Court Judge Name Role Phone Unavailable Primary Care Provider Unavailabl e Encounter Details Date Type Department Care Team (Late st Contact Info) Description 11/05/2023 Orders Only Division of Pulmonary Medicine in [place], [place] [address] [place] [phone] Brooke Sanabria M.D. [address] [place] [address] Social History Tobacco Use Types Packs/Day Years Used Date Smoking Tobacco: Never Assessed [facility] Utilities Answer Date Recorded In the [...] Hospital Encounter Post Anesthesia Care Unit in [place], [place] [address] [place] [phone] Hans Felix M.D. [address] [place] [phone] 12/13/2023 8:00 AM CDT - 12/13/2023 9:30 AM CDT Surgery RST ROMB MAIN OR [address] [place] [phone] Hans Felix M.D. [address] [place] [phone] BRONCHOSCOPY FLEXIBLE Scheduled Procedures Name Priority Associated Diagnoses Date/Ti me BRONCHOSCOPY FLEXIBLE Bronchitis Chronic (HCC) Chronic Obstructive Pulmonary Disease (HCC) 12/13/2023 8:00 AM CDT documented as of this encounter Visit Diagnoses Not on filedocumented in this encounter
--- OUTSIDE RECORDS SUMMARY | 2023-11-15 08:00 | XMS_ITS | Encounter Summary ---
Author Organization [facility] Address [address] [place] [address] Care Team Providers Care Washing Machine Loader Name Role Phone Unavailable Primary Care Provider Unavailabl e Reason for Referral * Outpatient (Routine) - Closed Specialty Diagnoses / Procedures Referred By Contac t Referred To Contact Research Diagnoses Bronchitis Chronic (HCC) Chronic Obstructive Pulmonary Disease (HCC) Fox Alvarez M.D. [address] [place] [phone] [facility] Referral ID Status Reason Start Date Expiration Date Visits Re quested Visits Authorized [id number] Closed 09/19/2023 03/20/2025 1 1 Scheduling Instructions IRB [id number] * Outpatient (Routine) - Closed Specialty Diagnoses / Procedures Referred By Contac t Referred To Contact Pulmonary Medicine Diagnoses Bronchitis Chronic (HCC) Chronic Obstructive Pulmonary Disease (HCC) Fox Alvarez M.D. 200 [place] [address] [facility] Referral ID Status Reason Start Date Expiration Date V isits Requested Visits Authorized [id number] Closed Specialty Services Required 09/19/2023 03/20/2025 1 1 Scheduling Instructions Rivera to schedule, IRB [id number] Encounter Details Date Type Department Care Team (Late st Contact Info) Description 09/19/2023 Orders Only Division of Pulmonary Medicine in [place], [place] [address] [place] [phone] Rivera Gil [address] [place] [phone] Bronchitis Chronic (HCC) (Primary Dx); Chronic Obstructive [...] Hospital Encounter Post Anesthesia Care Unit in [place], [place] [address] [place] [phone] Hans Felix M.D. [address] [place] [phone] 12/13/2023 8:00 AM CDT - 12/13/2023 9:30 AM CDT Surgery [facility]ST ROMB MAIN OR [address] [place] [phone] Hans Felix M.D. [address] [place] [phone] BRONCHOSCOPY FLEXIBLE Scheduled Procedures Name Priority Associated Diagnoses Date/Ti me BRONCHOSCOPY FLEXIBLE Bronchitis Chronic (HCC) Chronic Obstructive Pulmonary Disease (HCC) 12/13/2023 8:00 AM CDT Scheduled Referrals Name Type Priority Associated Diagnoses Orde r Schedule Pulmonary Medicine - General consult (clinic) Outpatient Referral Routine Bronchitis Chronic (HCC) Chronic Obstructive Pulmonary Disease (HCC) Expected: 09/30/2023, Expires: 12/19/2024 Research Installer office visit (clinic) Outpatient Referral Routine Bronchitis Chronic (HCC) Chronic Obstructive Pulmonary Disease (HCC) Expected: 09/30/2023, Expires: 12/19/2024 documented as of this encounter Results * Nicotine and Metabolites (10/08/2023 11:33 AM CDT) [facility] Nicotine <3.0 <3.0 ng/mL 10/09/2023 10:09 AM CDT [facility] Cotinine <3.0 <3.0 ng/mL 10/09/2023 10:09 AM CDT [facility] Comment: ----ADDITIONAL INFORMATION---- This test was developed and its performance characteristics determined by [facility] in a manner consistent with CLIA requirements. This test has not been cleared or approved by the U.S. Food and Drug Administration. Blood (Blood, Venous) 10/08/2023 11:33 AM CDT 10/09/2023 7:30 AM CDT Fox Alvarez M.D. LAB BLOOD ADD-ON [facility] [address] [place] [address] [facility] [address] [place] [address] [place] [address] * Pulmonary Function Tests (10/08/2023 7:31 AM CDT) [facility] PostFVC 3.44 L 10/08/2023 1:58 PM CDT [facility] PostFEV1 1.34 L 10/08/2023 1:58 PM CDT [facility] FEV1/FVC POST 38.95 % 10/08/2023 1:58 PM CDT [facility] FEF 25-75 % POST 0.32 L/s 10/08/2023 1:58 PM CDT [facility] PEF POST 4.11 L/s 10/08/2023 1:58 PM CDT [facility] PIF POST 4.66 L/s 10/08/2023 1:58 PM CDT [facility] FEF 50 % FIF 50 POST 7.13 % 10/08/2023 1:58 PM CDT [facility] FET POST 15.22 sec 10/08/2023 1:58 PM CDT [facility] DLCO SINGLE BREATH POST 9.13 ml/(min*mm Hg) 10/08/2023 1:58 PM CDT [facility] VA SINGLE BREATH POST 6.40 L 10/08/2023 1:58 PM CDT [facility] TLC POST 9.37 L 10/08/2023 1:58 PM CDT [facility] RV 5.64 L 10/08/2023 1:58 PM CDT [facility] RV % TLC POST 60.17 % 10/08/2023 1:58 PM CDT [facility] FVC 3.04 L 10/08/2023 1:58 PM CDT [facility] FEV1 1.09 L 10/08/2023 1:58 PM CDT [facility] FEV1/FVC 35.80 % 10/08/2023 1:58 PM CDT [facility] PXS40-39% 0.24 L/s 10/08/2023 1:58 PM CDT [facility] PEF PRE 4.38 L/s 10/08/2023 1:58 PM CDT [facility] PIF PRE 4.29 L/s 10/08/2023 1:58 PM CDT [facility] FEF 50 % FIF 50 PRE 6.33 % 10/08/2023 1:58 PM CDT [facility] FET PRE 15.54 sec 10/08/2023 1:58 PM CDT [facility] SUBSTANCE POST Albuterol 10/08/2023 1:58 PM CDT [facility] 10/08/2023 7:31 AM CDT Impressions [facility] - 10/08/2023 1:58 PM CDT Abnormal. Moderate [...] saftey concerns. Fox Alvarez M.D. PFT ORDERABLES [facility] NA documented in this encounter Visit Diagnoses Diagnosis Bronchitis Chronic (HCC)- Primary Chronic Obstructive Pulmonary Disease (HCC) Bronchitis Chronic (HCC) Chronic Obstructive Pulmonary Disease (HCC) documented in this encounter
--- OUTSIDE RECORDS SUMMARY | 2023-11-15 08:00 | XMS_ITS | Encounter Summary ---
Author Organization [facility] Address [address] [place] [address] Care Team Providers Care Archival Studies Professor Name Role Phone Unavailable Primary Care Provider Unavailabl e Encounter Details Date Type Department Care Team (Latest Contact Info) Description 10/08/2023 11:20 AM CDT - 10/08/2023 11:59 PM CDT Hospital Encounter Department of Laboratory Medicine and Pathology, [facility], in [place], [place] [address] [place] [address] Fox Alvarez M.D. [address] [place] [phone] Bronchitis Chronic (HCC); Chronic Obstructive Pulmonary Disease (HCC) Discharge Disposition: Home or Self Care Social History Tobacco Use Types Packs/Day Years Used Date Smoking Tobacco: Never Assessed [facility] Utilities Answer Date Recorded In the past 12 months has [facility] [employer], gas, oil, or water [employer] threatened to shut off services in your [...] your living situation today? I have a [facility] place to live 10/02/2023 Sex and Gender Information Value Date Recorded Sex Assigned at Male 10/02/2023 12:12 PM CDT Gender Identity Male 10/02/2023 12:12 PM CDT Sexual Orientation Straight 10/02/2023 12 :12 PM CDT documented as of this encounter Medications at Time of Discharge [...] Take 1 tablet by mouth daily. 01/26/2020 famotidine (Pepcid) 20 mg tablet Take 1 tablet by mouth daily. 01/24/2023 fexofenadine (Joanna) 180 mg tablet Take 180 [...] by mouth as needed for pain. 01/15/2020 roflumilast (Daliresp) 500 mcg tablet Take 500 mcg by mouth daily. 09/16/2023 rosuvastatin (Crestor) 40 mg tablet Take 40 mg by mouth daily. 02/27/2019 sennosides-docusate sodium (Senokot-S) 8.6-50 mg per tablet Take 2 tablets by mouth as needed for constipation. 02/04/2023 Spiriva with HandiHaler 18 mcg inhalation capsule Inhale 1 capsule daily. 11/26/2011 documented as of this encounter Plan of Treatment Upcoming Encounters Date Type Department Care Team (Latest Contact Info) Description 12/13/2023 8:00 AM CDT Hospital Encounter Post Anesthesia Care Unit in [place], [place] [address] [place] [phone] Hans Felix M.D. [address] [place] [phone] 12/13/2023 8:00 AM CDT - 12/13/2023 9:30 AM CDT Surgery [facility]ST ROMB MAIN OR [address] [place] [phone] Hans Felix M.D. [address] [place] [phone] BRONCHOSCOPY FLEXIBLE Scheduled Procedures Name Priority Associated Diagnoses Date/Ti me BRONCHOSCOPY FLEXIBLE Bronchitis Chronic (HCC) Chronic Obstructive Pulmonary Disease (HCC) 12/13/2023 8:00 AM CDT documented as of this encounter Procedures Procedure Name Priority Date/Time Associated Diagnosis Comments NICOTINE AND METABOLITES, S Routine 10/08/2023 11:33 AM CDT Bronchitis Chronic (HCC) Chronic Obstructive Pulmonary Disease (HCC) documented in this encounter Results * Nicotine and Metabolites (10/08/2023 11:33 AM CDT) Pathologist [facility] Nicotine <3.0 <3.0 ng/mL 10/09/2023 10:09 AM CDT [facility] Cotinine <3.0 <3.0 ng/mL 10/09/2023 10:09 AM CDT [facility] Comment: ----ADDITIONAL INFORMATION---- This test was developed and its performance characteristics determined by [facility] in a manner consistent with CLIA requirements. This test has not been cleared or approved by the U.S. Food and Drug Administration. Blood (Blood, Venous) 10/08/2023 11:33 AM CDT 10/09/2023 7:30 AM CDT Fox Alvarez M.D. LAB BLOOD ADD-ON [facility] [address] [place] [address] [facility] [address] [place] [address] [place] [address] documented in this encounter Visit Diagnoses Diagnosis Bronchitis Chronic (HCC) Chronic Obstructive Pulmonary Disease (HCC) Bronchitis Chronic (HCC) Chronic Obstructive Pulmonary Disease (HCC) documented in this encounter
--- OUTSIDE RECORDS SUMMARY | 2023-11-15 08:00 | XMS_ITS | Encounter Summary ---
Author Organization [facility] Address 200 [place] [address] Care Team Providers Care Signal Tester Name Role Phone Unavailable Primary Care Provider Unavailabl e Reason for Visit * Auth/Cert (Routine) Specialty Diagnoses / Procedures Referred By Contac t Referred To Contact Diagnoses Bronchitis Chronic (HCC) Chronic Obstructive Pulmonary Disease (HCC) Bronchitis Chronic (HCC) [J42] Chronic Obstructive Pulmonary Disease (HCC) [J44.9] Procedures WI BRONCH DX W CELL WASH FLUOR BRONCHOSCOPY FLEXIBLE Harsha Roberto M.D. 200 [place] [address] Referral ID Status Reason Start Date Expiration Date Visits Re quested Visits Authorized [id number] 1 1 Encounter Details Date Type Department Care Team (Latest Contact Info) Description 11/08/2023 5:53 AM CDT - 11/08/2023 9:45 AM CDT Hospital Encounter RST ROMB MAIN OR [address] [place] [phone] Harsha Roberto M.D. 200 [place] [address] Bronchitis Chronic (HCC); Chronic Obstructive Pulmonary Disease (HCC) Discharge Disposition: Home or Self Care Social History Tobacco Use Types Packs/Day Years Used Date Smoking Tobacco: Former Cigarettes Q uit: 2017 Smokeless Tobacco: Never Tobacco Cessation:Counseling Given: Not Answered Alcohol Use Standard Drinks/Week Comments Not Currently 0 (1 standard drink = 0.6 oz pur e alcohol) [place] Utilities Answer Date Recorded In the past 12 months has th e [employer], gas, oil, or water [employer] threatened to shut off services in your [...] your living situation today? I have a [facility] place to live 10/02/2023 Sex and [...] Everywhere. * Bronchoscopy: Looking at [employer] (Indonesian) documented in this encounter Medications at Time [...] Hospital Encounter Post Anesthesia Care Unit in [place] [phone] [place] [phone] Hans Felix M.D. [address] [place] [phone] 12/13/2023 8:00 AM CDT - 12/13/2023 9:30 AM CDT Surgery RST ROMB MAIN OR [address] [place] [phone] Hans Felix M.D. [address] [place] [phone] BRONCHOSCOPY FLEXIBLE Pending Results Name Type Priority [...] - G ENERAL ORDERABLES Performing Organization Address City/[facility]/ZIP Co de Phone Number [facility] [address] 200 [place] [address] * Fungal Smear (11/08/2023 8:14 AM CDT) Fungal Smear Negative. 11/08/2023 3:02 PM CDT DTL Wash (Bronchus) 11/08/2023 8 :14 AM CDT Harsha Roberto M.D. LAB MICROBIOLOGY - G ENERAL ORDERABLES Performing Organization Address City/[facility] Co de Phone Number [facility] 200 [place], [place] [phone] [place] [address] 200 [place] [address] * Acid Fast Smear for Mycobacterium (11/08/2023 8:14 AM CDT) Acid Fast Smear For Mycobacterium Negative. 11/08/2023 6:22 PM CDT DTL Wash (Bronchus) 11/08/2023 8 :14 AM CDT Harsha Roberto M.D. LAB MICROBIOLOGY - G ENERAL ORDERABLES Performing Organization Address City/[facility] Co de Phone Number [facility] 200 [place], [place] [address] [place] [address] 200 [place] [address] * Gram Stain (11/08/2023 8:14 AM CDT) Gram Stain Upper respiratory/ora l microbiota White blood cells, Few Epithelial cells, Rare 11/08/2023 12:38 PM CDT DTL Wash (Bronchus) 11/08/2023 8 :14 AM CDT Harsha Roberto M.D. LAB MICROBIOLOGY - G ENERAL ORDERABLES Performing Organization Address [facility] Co de Phone Number [facility] [address] [place] [address], [facility] DTL [facility] [address] [place] [address] * ECG 12 Lead (11/08/2023 6:55 AM CDT) Ventricular Rate ECG/Min 88 BPM MUSE QRSD Interval 102 ms MUSE QT Interval 402 ms MUSE QTC Interval 486 ms MUSE P [place] 77 degrees MUSE R [place] 62 degrees MUSE T Wave [place] 68 degrees MUSE 11/08/2023 6:55 AM CDT [...] D.N.P. ECG ORDE RABLES Performing Organization Address [facility] Co de Phone Number MUSE NA documented [...]
--- OUTSIDE RECORDS SUMMARY | 2023-11-15 08:00 | XMS_ITS | Encounter Summary ---
Author Organization [facility] Address [address] [place] [address] Care Team Providers Care Lens Assistant Name Role Phone Unavailable Primary Care Provider Unavailabl e Encounter Details Date Type Department Care Team (Late st Contact Info) Description 11/05/2023 Orders Only Division of Pulmonary Medicine in [place], [place] [address] [place] [address] Gildardo Canales Social History Tobacco Use Types Packs/Day Years Used Date Smoking Tobacco: Never Assessed [facility] Utilities Answer Date Recorded In the [...] your living situation today? I have a [facility] place to live 10/02/2023 Sex and [...] Hospital Encounter Post Anesthesia Care Unit in [place], [place] [address] [place] [phone] Hnas Felix M.D. [address] [place] [phone] 12/13/2023 8:00 AM CDT - 12/13/2023 9:30 AM CDT Surgery RST ROMB MAIN OR [address] [place] [phone] Hans Felix M.D. [address] [place] [phone] BRONCHOSCOPY FLEXIBLE Scheduled Procedures Name Priority Associated Diagnoses Date/Ti me BRONCHOSCOPY FLEXIBLE Bronchitis Chronic (HCC) Chronic Obstructive Pulmonary Disease (HCC) 12/13/2023 8:00 AM CDT documented as of this encounter Visit Diagnoses Not on filedocumented in this encounter
--- OUTSIDE RECORDS SUMMARY | 2023-11-15 08:00 | XMS_ITS | Encounter Summary ---
Author Organization [facility] Address [address] [place] [address] Care Team Providers Care Day Care Aide Name Role Phone Unavailable Primary Care Provider Unavailabl e Reason for Referral * Outpatient (Routine) - Closed Specialty Diagnoses / Procedures Referred By Rojasac t Referred To Contact Diagnoses Bronchitis Chronic (HCC) Chronic Obstructive Pulmonary Disease (HCC) Procedures DX Chest AP or PA and Lateral 2 Views Brooke Sanabria M.D. [address] [place] [phone] [facility] Referral ID Status Reason Start Date Expiration Date Visits Re quested Visits Authorized [id number] Closed 10/08/2023 10/07/2024 1 1 Reason for Visit * Outpatient (Routine) - Closed Specialty Diagnoses / Procedures Referred By Kajal ramirez Referred To Contact Diagnoses Bronchitis Chronic (HCC) Chronic Obstructive Pulmonary Disease (HCC) Procedures DX Chest AP or PA and Lateral 2 Views Brooke Sanabria M.D. [address] [place] [phone] [facility] Referral ID Status Reason Start Date Expiration Date Visits Re quested Visits Authorized [id number] Closed 10/08/2023 10/07/2024 1 1 Encounter Details Date Type Department Care Team (Latest Contact Info) Description 10/08/2023 11:07 AM CDT - 10/08/2023 11:19 AM CDT Hospital Encounter Department of Radiology, [facility], in [place], [place] 200 [place] [address] Brooke Sanabria M.D. 200 [place] [address] Bronchitis Chronic (HCC); Chronic Obstructive Pulmonary Disease (HCC) Discharge Disposition: Home or Self Care Social History Tobacco Use Types Packs/Day Years Used Date Smoking Tobacco: Never Assessed [facility] Utilities Answer Date Recorded In the past 12 months has th e [employer], gas, oil, or water [employer] threatened to shut off services in your [...] your living situation today? I have a [facility] place to live 10/02/2023 Sex and [...] Hospital Encounter Post Anesthesia Care Unit in [place] [address] [place] [phone] Hans Felix M.D. [address] [place] [phone] 12/13/2023 8:00 AM CDT - 12/13/2023 9:30 AM CDT Surgery RST ROMB MAIN OR [address] [place] [phone] Hans Felix M.D. [address] [place] [phone] BRONCHOSCOPY FLEXIBLE Scheduled Procedures Name Priority Associated Diagnoses Date/Ti me BRONCHOSCOPY FLEXIBLE Bronchitis Chronic (HCC) Chronic Obstructive Pulmonary Disease (HCC) 12/13/2023 8:00 AM CDT documented as of this encounter Procedures Procedure Name Priority Date/Time Associated Diagnosis Comments DX CHEST AP OR PA AND LATERAL 2 VIEWS RAD - Routine (most inpatients and all outpatients) 10/08/2023 11:14 AM CDT Bronchitis Chronic (HCC) Chronic Obstructive Pulmonary Disease (HCC) documented in this encounter Results * DX Chest AP or PA and [...] bodies. POchanges cervical spine. Brooke Mulligan M.D. [employer] DIAGNO STIC IMAGING PROCEDURES documented in this encounter Visit Diagnoses Diagnosis Bronchitis Chronic (HCC) Chronic Obstructive Pulmonary Disease (HCC) Bronchitis Chronic (HCC) Chronic Obstructive Pulmonary Disease (HCC) documented in this encounter
--- OUTSIDE RECORDS SUMMARY | 2023-11-15 08:00 | XMS_ITS | Continuity of Care Document ---
Author Organization [facility] Address [address] [place] [address] Phone Care Team Providers Care Mine Development Engineer Name Role Phone Minesh Fonseca Unavailable Unavailable Procedures Procedure Date Office/Outpatient Visit,[facility] 2021 Advance Directives Directive Yes / No Effective Date File Name No Information Encounters Encounter Description Practice Location Reason(s) For Visit Diagnoses Date Provider Providers Copied on Encounter Office/Outpat ient Visit,, [facility], [address], [place], [place], [id number], [place] tel:[phone] [facility] Other intervertebral disc degeneration, lumbar region 2 Chavo Edge. [facility], [address] [place] [address], [address], [place], [place], [id number] , [place]. tel:[phone] Referring Provider: Arnoldo Meyers, [facility] [address] [place] [address], [address]. tel:[phone] Family History Family Member Type Diagnosis Age At Onset No Information Payers Payer name Insurance type Covered constitution party ID Authoriza tion(s) [employer] Medicare Gold Choice Sienna LAZO [id number] Social History Type Description Quantity Date [...]
--- OUTSIDE RECORDS SUMMARY | 2023-11-15 08:00 | XMS_ITS | Encounter Summary ---
Author Organization [facility] Address [address] [place] [address] Care Team Providers Care Paper Sample Clerk Name Role Phone Unavailable Primary Care Provider Unavailabl e Encounter Details Date Type Department Care Team (Late st Contact Info) Description 10/22/2023 Orders Only Division of Pulmonary Medicine in [place], [place] [address] [place] [address] Gildardo Canales Social History Tobacco Use Types [...] your living situation today? I have a [facility] place to live 10/02/2023 Sex [...] Hospital Encounter Post Anesthesia Care Unit in [place], [place] [address] [place] [phone] Hans Felix M.D. [address] [place] [phone] 12/13/2023 8:00 AM CDT - 12/13/2023 9:30 AM CDT Surgery RST ROMB MAIN OR [address] [place] [phone] Hans Felix M.D. [address] [place] [phone] BRONCHOSCOPY FLEXIBLE Scheduled Procedures Name Priority Associated Diagnoses Date/Ti me BRONCHOSCOPY FLEXIBLE Bronchitis Chronic (HCC) Chronic Obstructive Pulmonary Disease (HCC) 12/13/2023 8:00 AM CDT documented as of this encounter Visit Diagnoses Not on filedocumented in this encounter
--- OUTSIDE RECORDS SUMMARY | 2023-11-15 08:01 | XMS_ITS | Clinical Summary ---
Author Organization [place] Address [address] [place] [address] Care Team Providers Care Varnish Finisher Name Role Phone Wesley Dugan MD Primary Care Provider [phone] Allergies Active Allergy Reactions Criticality Noted Date [...] MG sublingual tabletIndications:C oronary artery disease involving angoon coronary artery of [place] heart without angina pectoris For chest pain [...] Active oxyCODONE (ROXICODONE) 5 MG tabletIndications:P eripheral polyneuropathy,Plumber And Tinner lida pain syndrome TAKE ONE TABLET BY [...] Edema 08/19/2013 Coronary artery disease invo lving angoon coronary artery of [place]go[place] heart without angina pectoris 08/19/2013 Overview: cardiac [...] disease, unspecified COPD type 12/25/2016 08/21/2017 [facility] 03/09/2015 08/26/2023 Overview: Status: Closed Manager Oracle: Laurence Steele RN [phone] See Letters for [facility] Care Plan Date: [...] Monovalent 18+ (Moderna) 06/09/2020,06/2020 Influenza (High Dose) Trival ent,PF (Fluzone) 12/01/2018,12/18/2017,12/24/2016,2015,12/21/2014,01/11/2014 Influenza (IIV3) PF 12/09/2012,03/11/2007,2006 Influenza Vaccine [...] Sex Assigned at Male 03/30/2018 7:28 AM ASSURANCE ASSISTANT Gender Identity Male 03/30/2018 7:28 AM ASSURANCE ASSISTANT Sexual Orientation Straight 02/18/2018 9: 07 AM ASSURANCE ASSISTANT Last Filed Vital Signs Vital Sign Reading [...] - Risk 2-dose series) 1965 RSV VACCINE (1 - 1-dose 60+ series) 2006 ANNUAL [...] 11/24/2020 11/25/2019, 10/16/2019, 09/25/2018, Additional history exists BMP 07/25/2023 01/24/2023, 10/09, 09/07/2019, Additional history exists LIPID 11/01/2023 10/31/2018, 2 09/2018, 10/02/2016, Additional history exists COVID-19 Vaccine ( season) 2023 12/25/2022, 10/15/2022, 11/28/2021, Additional history exists INFLUENZA VACCINE (#1) 2023 , 11/15/2021, 01/11/2021, Additional history exists URIC ACID [...] (Cologuard) Discontinued Medical Devices Implanted Type Area Installment Agent Device Identifier Shelf Expiration Date Model / Serial / Lot Mesh Ventralex Hernia 2.5 [place] [employer] W/Strap [id number] Implanted:Qty: 1 on 04/16/2013 by Hans Schultz MD at [facility] N/A: Umbilical 01/02/2015 [id number] / / [id number] Procedures Procedure Name Priority Date/Time Associated Diagnosis Comments URIC ACID STAT 01/31/2023 8:25 AM ASSURANCE ASSISTANT Hematuria, unspecified BASIC METABOLIC PANEL Routine 01/24/2023 5:45 AM ASSURANCE ASSISTANT Aftercare following joint replacement surgery CT CHEST/ABDOMEN/PELVIS W CONTRAST Routine 09/10/2019 9:34 AM CDT Monoclonal gammopathy Weight loss Fatigue, unspecified type Tarry stools COMPREHENSIVE METABOLIC PANEL Routine 09/07/2019 12:48 PM CDT Monoclonal gammopathy Weight loss Fatigue, unspecified type Tarry stools COMPREHEN DRUG ANALYSIS UR Routine 08/17/2019 9:49 AM CDT Chronic pain syndrome LIPID PROFILE STAT 10/31/2018 7:23 AM CDT HTN, goal below 140/90 Hx of coronary artery disease COLONOSCOPY Routine 02/12/2018 9:47 AM ASSURANCE ASSISTANT SPIROMETRY - HIM SCAN Routine 12/20/2017 HEPATITIS C ANTIBODY Routine 07/25/2015 9:30 AM CDT Need for hepatitis C screening test from Last 3 Months or Most Recently Relevant to Health Maintenance Results * Uric acid (01/31/2023 8:25 AM ASSURANCE ASSISTANT) Uric Acid 4.0 3.4 - 7.0 mg/dL 01/31/2023 11:18 AM ASSURANCE ASSISTANT [facility] Blood BLOOD SPECIMEN / Unknown Client Draw / Unknown 01/31/2023 8:25 AM ASSURANCE ASSISTANT 01/31/2023 10:46 AM ASSURANCE ASSISTANT Jazmin Alvarado MD LAB - BLOOD ORDERABL ES [facility] [place] [facility] [address] [facility], [address] [address], [facility] [phone] * Basic metabolic panel (01/24/2023 5:45 AM ASSURANCE ASSISTANT) [facility] Sodium 138 135 - 145 mmol/L 01/24/2023 10:21 AM ASSURANCE ASSISTANT [facility] Comment:Reference intervals for this test were updated on 12/04/2022 to more accurately reflect our healthy population. There may be differences in the flagging of prior results with similar values performed with this method. Interpretation of those prior results can be made in the context of the updated reference intervals. Potassium 4.1 3.4 - 5.3 mmol/L 01/24/2023 10:21 AM ASSURANCE ASSISTANT [facility] Chloride 104 98 - 107 mmol/L 01/24/2023 10:21 AM ASSURANCE ASSISTANT [facility] Carbon Dioxide (CO2) 24 22 - 29 mmol/L 01/24/2023 10:21 AM ASSURANCE ASSISTANT [facility] Anion Gap 10 7 - 15 mmol/L 01/24/2023 10:21 AM ASSURANCE ASSISTANT [facility] Urea Nitrogen 15.2 8.0 - 23.0 mg/dL 01/24/2023 10:21 AM ASSURANCE ASSISTANT [facility] Creatinine 0.87 0.67 - 1.17 mg/dL 01/24/2023 10:21 AM ASSURANCE ASSISTANT [facility] GFR Estimate 89 >60 mL/min/1. 73m2 01/24/2023 10:21 AM ASSURANCE ASSISTANT [facility] Calcium 9.4 8.8 - 10.2 mg/dL 01/24/2023 10:21 AM ASSURANCE ASSISTANT [facility] Glucose 88 70 - 99 mg/dL 01/24/2023 10:21 AM ASSURANCE ASSISTANT [facility] Blood STRUCTURE OF LEFT UPPER LIMB / Unknown Venipuncture / Unknown 01/24/2023 5:45 AM ASSURANCE ASSISTANT 01/24/2023 8:02 AM ASSURANCE ASSISTANT Jazmin Alvarado MD LAB - BLOOD ORDERABL ES [facility] [place] [facility] [address] [facility] [address] [facility], [address] [place] [address], [facility] [phone] * CT Chest/Abdomen/Pelvis w Contrast (09/10/2019 9:34 AM CDT) Anatomical Region Laterality Modality Abdomen/Pelvis, Chest, SUBRA D CT BODY, UMP CT CHEST, UMP CT ABDOMEN PELVIS, RAD CT Computed Tomography Impressions 09/10/2019 10:15 AM CDT IMPRESSION: 1. ??No evidence of malignancy in the chest, abdomen, or pelvis. 2. ??Slight asymmetry of the prostate gland is unchanged. Consider urology consultation and correlation with PSA if clinically indicated. 3. ??Atherosclerotic disease with mild aneurysmal enlargement of the ascending aorta (4.1 cm). An infrarenal abdominal aortic aneurysm has not significantly changed in size at 5.8 cm in transverse dimension. An aortobiiliac stent graft is present. Again seen is high attenuation within the excluded lumen. 4. ??2 mm pulmonary nodules. Consider 12 month follow-up. JULIET LISA MD Narrative 09/10/2019 10:[address] CHEST/ABDOMEN/PELVIS W CONTRAST 09/10/2019 9:34 AM CLINICAL HISTORY: 15 lbs weight loss in a month; change in caliber of stool; poor appetite and energy; Monoclonal gammopathy; Weight loss; Fatigue, unspecified type; Tarry stools TECHNIQUE: CT scan of the chest, abdomen, and pelvis was performed following injection of IV contrast. Multiplanar reformats were obtained. Dose reduction techniques were used. CONTRAST: 100mL Isovue-370 COMPARISON: 01/29/2018 FINDINGS: LUNGS AND PLEURA: There is a small amount of debris and airways. No bronchial wall thickening or bronchiectasis. There is centrilobular emphysema. A 2 mm right upper lobe nodule has not changed (series 12 image 116). There is a 2 mm left lower lobe nodule (image 189). MEDIASTINUM/AXILLAE: Normal size of the heart. Normal esophagus. No lymphadenopathy. The ascending aorta is enlarged at 41 mm in maximum diameter (unchanged). There is coronary artery calcification. Status post CABG. HEPATOBILIARY: Cholecystectomy. PANCREAS: Punctate pancreatic calcifications. SPLEEN: Normal. ADRENAL GLANDS: Normal. KIDNEYS/BLADDER: Normal. BOWEL: Normal stomach. Normal caliber of the small bowel. Normal appearance of the colon. PELVIC ORGANS: There is unchanged slight asymmetry of the prostate gland. ADDITIONAL FINDINGS: There is atherosclerotic disease. An aortobiiliac stent graft is present. The excluded aneurysm is 4.8 cm AP by 5.8 cm transverse (previously 4.7 x 5.7 cm). Again seen is high attenuation within the excluded aneurysm. There is a 1.7 x 1.3 cm structure in the left lower pelvis near internal iliac artery branches which could represent a small aneurysm and has not changed (series 4 image 284). 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 Evidence of prior left femur hardware. There is hardware from L4 to S1. Anterior cervical fusion hardware is noted. Diffuse median sternotomy noted. Procedure Note Juliet Lisa MD - 09/10/2019 CT CHEST/ABDOMEN/PELVIS W CONTRAST 09/10/2019 9:34 AM CLINICAL HISTORY: 15 lbs weight loss in a month; change in caliber of stool; poor appetite and energy; Monoclonal gammopathy; Weight loss; Fatigue, unspecified type; Tarry stools TECHNIQUE: CT scan of the chest, abdomen, and pelvis was performed following injection of IV contrast. Multiplanar reformats were obtained. Dose reduction techniques were used. CONTRAST: 100mL Isovue-370 COMPARISON: 01/29/2018 FINDINGS: LUNGS AND PLEURA: There is a small amount of debris and airways. No bronchial wall thickening or bronchiectasis. There is centrilobular emphysema. A 2 mm right upper lobe nodule has not changed (series 12 image 116). There is a 2 mm left lower lobe nodule (image 189). MEDIASTINUM/AXILLAE: Normal size of the heart. Normal esophagus. No lymphadenopathy. The ascending aorta is enlarged at 41 mm in maximum diameter (unchanged). There is coronary artery calcification. Status post CABG. HEPATOBILIARY: Cholecystectomy. PANCREAS: Punctate pancreatic calcifications. SPLEEN: Normal. ADRENAL GLANDS: Normal. KIDNEYS/BLADDER: Normal. BOWEL: Normal stomach. Normal caliber of the small bowel. Normal appearance of the colon. PELVIC ORGANS: There is unchanged slight asymmetry of the prostate gland. ADDITIONAL FINDINGS: There is atherosclerotic disease. An aortobiiliac stent graft is present. The excluded aneurysm is 4.8 cm AP by 5.8 cm transverse (previously 4.7 x 5.7 cm). Again seen is high attenuation within the excluded aneurysm. There is a 1.7 x 1.3 cm structure in the left lower pelvis near internal iliac artery branches which could represent a small aneurysm and has not changed (series 4 image 284). 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 Evidence of prior left femur hardware. There is hardware from L4 to S1. Anterior cervical fusion hardware is noted. Diffuse median sternotomy noted. IMPRESSION: 1. No evidence of malignancy in the chest, abdomen, or pelvis. 2. Slight asymmetry of the prostate gland is unchanged. Consider urology consultation and correlation with PSA if clinically indicated. 3. Atherosclerotic disease with mild aneurysmal enlargement of the ascending aorta (4.1 cm). An infrarenal abdominal aortic aneurysm has not significantly changed in size at 5.8 cm in transverse dimension. An aortobiiliac stent graft is present. Again seen is high attenuation within the excluded lumen. 4. 2 mm pulmonary nodules. Consider 12 month follow-up. JULIET LISA MD Migue Browne MD IMG CT ORDERABLES * (ABNORMAL) Comprehensive metabolic panel (09/07/2019 12:48 PM CDT) Sodium 139 133 - 144 mmol/L 09/07/2019 1:20 PM [facility] Potassium 3.6 3.4 - 5.3 mmol/L 09/07/2019 1:20 PM T [facility] Chloride 107 94 - 109 mmol/L 09/07/2019 1:20 PM T [facility] Carbon Dioxide 26 20 - 32 mmol/L 09/07/2019 1:28 PM T [facility] Anion Gap 6 3 - 14 mmol/L 09/07/2019 1:28 PM [facility] Glucose 106(H) 70 - 99 mg/dL 09/07/2019 1:28 PM T [facility] Urea Nitrogen 12 7 - 30 mg/dL 09/07/2019 1:28 PM [facility] Creatinine 0.79 0.66 - 1.25 mg/dL 09/07/2019 1:28 PM T [facility] GFR Estimate 89 >60 mL/min/{1. 73_m2} 09/07/2019 1:28 PM T [facility] Comment: Non GFR Calc Starting 02/25/2018, serum creatinine based estimated GFR (eGFR) will be calculated using the Chronic Kidney Disease Epidemiology Collaboration (CKD-EPI) equation. GFR Estimate If Black >90 >60 mL/min/{1. 73_m2} 09/07/2019 1:28 PM CDT [facility] Comment: GFR Calc Starting 02/25/2018, serum creatinine based estimated GFR (eGFR) will be calculated using the Chronic Kidney Disease Epidemiology Collaboration (CKD-EPI) equation. Calcium 9.0 8.5 - 10.1 mg/dL 09/07/2019 1:28 PM T [facility] Bilirubin Total 0.8 0.2 - 1.3 mg/dL 09/07/2019 1:30 PM [facility] Albumin 3.7 3.4 - 5.0 g/dL 09/07/2019 1:30 PM [facility] Protein Total 7.2 6.8 - 8.8 g/dL 09/07/2019 1:30 PM [facility] Alkaline Phosphatase 101 40 - 150 U/L 09/07/2019 1:30 PM [facility] ALT 25 0 - 70 U/L 09/07/2019 1:30 PM [facility] AST 19 0 - 45 U/L 09/07/2019 1:30 PM [facility] Blood specimen (specimen) 09/07/2019 12:48 PM CDT 09/07/2019 12:54 PM CDT Migue Browne MD LAB - BLOOD ORDERA BLES [facility] [place] [address] [address], [facility] [phone] * Drug Screen Comprehensive, Urine w/o Reported Meds (Pain Care Package) (08/17/2019 9:49 AM CDT) [facility] Drug Analysis UR FINAL 08/20/2019 4:37 PM CDT [facility] Comment: (Note) COMPREHENSIVE DRUG ANALYSIS,UR Test [...] consultation, please call . Analysis performed by [employer] [place] [address] Urine specimen (specimen) 08/17/2019 9:49 AM CDT 08/17/2019 9:50 AM CDT Wesley Dugan MD LAB - URINE ORDERABL ES Performing Organization Address City/State/[facility] [[email or web address]] Co il Phone Number [facility] [address] [place] [address] * (ABNORMAL) Lipid Profile (10/31/2018 7:23 AM CDT) Cholesterol 136 <200 mg/dL 10/31/2018 7:55 AM CDT [facility] Triglycerides 113 <150 mg/dL 10/31/2018 7:55 AM CDT [facility] Comment:Fasting specimen HDL Cholesterol 36(L) >39 mg/dL 9 7:58 AM CDT [facility] LDL Cholesterol Calculated 77 <100 mg/dL 10/31/2018 7:58 AM CDT [facility] Comment:Desirable: <100 mg/d l Non HDL Cholesterol 100 <130 mg/dL 10/31/2018 7:58 AM CDT [facility] Blood specimen (specimen) 10/31/2018 7:23 AM CDT 10/31/2018 7:29 AM CDT Miguel Culver PA-C LAB - BLOOD ORDERABL ES Performing Organization Address City/[facility]/ZIP Co de Phone Number [facility] [address] [place] [address], [facility] [phone] [facility] [address] [place] [address], [facility] [phone] * COLONOSCOPY (02/12/2018 9:47 AM ASSURANCE ASSISTANT) COLONOSCOPY [facility] Patient Name: Butch Nieves ?Procedure [...] # [id number], ?[place] # [id number], SN # [id number] was introduced through ?the anus and advanced [...] Procedure Code(s): ? --- Professional --- ? 59682, Colonoscopy, flexible; with removal of tumor(s), polyp(s), or ? other lesion(s) by snare technique Diagnosis Code(s): ? --- Professional --- ? D12.3, Benign neoplasm of transverse colon (hepatic flexure or splenic ? flexure) ? D12.2, Benign neoplasm of ascending colon CPT copyright 2017 [employer]. All rights reserved. The codes documented in this report are preliminary and upon general service technician review may be revised to meet current compliance requirements. Electronically signed by Joe Dent MD __ Joe Dent MD 02/12/2018 10:36:09 AM I was physically present for the entire viewing portion of the exam. Joe Dent MD Number of Addenda: 0 Note Initiated On: 02/12/2018 9:47 AM MRN: [id number] Procedure Date: ? 02/12/2018 9:47:22 AM Scope Withdrawal Time: 0 hours 6 minutes 17 seconds Total Procedure Duration: 0 hours 14 minutes 28 seconds Estimated Blood Loss: ? Scope In: 10:18:46 AM Scope Out: 10:33:14 AM RADIOLOGY RESULTS 02/12/2018 9:47 AM ASSURANCE ASSISTANT Joe Dent MD PROCEDURES RADIOLOGY RESULTS * Spirometry - HIM Scan (12/20/2017) Narrative Arin Berkowitz - 12/20/2017 [facility]-Progress note Provider Outside PFT ORDERABLES * Hepatitis C antibody (07/25/2015 9:30 AM CDT) Hepatitis C Antibody Nonreactive Assay performance characteristics have not been established for newborns, infants, and children [facility] Blood specimen (specimen) 07/25/2015 9:30 AM CDT 07/25/2015 9:31 AM CDT Wesley Dugan MD LAB - BLOOD ORDERABL ES [facility] [address] [place] [address] from Last 3 Months or Most Recently Relevant to Health Maintenance Advance Directives For more information, please contact: [phone] Documents on File Type Date Recorded Patient Final Inspector Shuttle Expl anation Advance Directives and Living Will 11/15/2017 2:53 PM Health Care Directiv e 11/12/17 * Full Code (Latest Code Status on File) Date Activated Date Inactivated Comments 03/06/2015 9:26 AM 04/01/2018 1:20 PM * Full Code Date Activated Date Inactivated Comments 03/05/2015 6:19 PM 03/06/2015 9:26 AM Care Teams Varnish Finisher Relationship Specialty [place] [address] [place] [address] PCP - General Family Practice 03/14/21
--- OUTSIDE RECORDS SUMMARY | 2023-11-15 08:01 | XMS_ITS | Clinical Summary ---
Author Organization [facility] Address [place], [place] [address] Care Team Providers Care Oil Dipper Name Role Phone Yordy Morin MD Primary [...] mg chewable tabletIndications:Ath erosclerotic heart disease of [place] coronary artery with other forms of angina [...] ype 02/01/2023 Atherosclerotic heart diseas e of [place] coronary artery with other forms of angina [...] symptoms stable Coronary artery disease invo lving lovelock coronary artery of lo[place] heart without angina pectoris 08/19/2013 Overview: cardiac [...] Encounters Date Type Department Care Team Description 11/14/2023 Travel 10/09/[address] Baird [address] [place] [address] Dalton Escobar MD Questions 10/07/2023 Lab Requisition [facility] [phone] Yordy Morin MD from Last 3 Months Social History Tobacco [...] T Respiratory Rate 18 02/12/2023 7:55 AM VESSEL WELDER Oxygen Saturation 95% 07/22/2023 7:55 AM CDT Inhaled Oxygen Concentration - - Weight 89.4 kg (197 lb 3.2 oz) 07/22/2023 7:55 A M CDT Height 185.4 cm (6' 1) 07/22/2023 7:55 AM CDT Body Mass Index 26.02 07/22/2023 7:55 AM CDT Plan of Treatment Upcoming Encounters Date Type Department Care Team (Late st Contact Info) Description 11/18/2023 10:00 AM CDT Office Visit [facility] [address] [facility] [address] [place] [address] Maurilio Thurman MD [address] [place], [place] [id number] Health Maintenance Due Date Last Done Comments Pneumococcal series for age 65+ (1 of 2 - PCV) 1952 Tdap 1957 Depression screening for age 12+ 1958 Hepatitis C screening for age 18-79 1964 Tetanus booster 1966 Zoster (shingles) series for age 50+ (1 of 2) 1996 RSV vaccine for adults or pr egnancy (1 - 1-dose 60+ series) 2006 Medicare Wellness for age 65+ 10/04/2011 COVID-19 vaccine series (2022- season) 2023 10/15/2022, 06/09/2020, 05/12/2020 Influenza for age 65+ 11/10/2023 BMI (ht and wt on same day) for age 18+ 07/21/2024 07/22/2023 Procedures Procedure Name Priority Date/Time Associated Diagnosis Comments LAB TRACKING EVENT Routine 10/07/2023 8: 50 AM CDT PATH TISSUE EXAM Routine 10/07/2023 8:50 AM CDT from Last 3 Months Results * LAB TRACKING EVENT (10/07/2023 8:50 AM CDT) Other (Other) Client Collect / Unknown 10/07/2023 8:50 AM CDT 10/07/2023 10:08 PM CDT Yordy Morin MD LAB BILL ONLY [facility] [address] [place] [address], * PATH TISSUE EXAM (10/07/2023 8:50 AM CDT) Case Report Pathology Report ?Case: [id number] ? Authorizing Provider: ??Yordy Morin MD ?Collected: ? 10/07/2023 0850 ? Ordering Location: ? [facility] ?Received: ?10/08/2023 0823 ? Pathologist: ? Antoine Wade, ? MD ? Specimens: ?? A) - Duodenum Biopsy ? B) - Stomach Biopsy ? 10/09/2023 11:33 AM CDT [email or web address] Final Diagnosis A) DUODENUM, BIOPSY: 1. Normal duodenal mucosa 2. Negative for celiac disease and other enteropathy B) STOMACH, ANTRUM AND BODY, BIOPSY: 1. Normal gastric antral and body mucosae 2. Negative for Helicobacter 10/09/2023 11:33 AM T [email or web address] Clinical Information Iron deficiency anemia. Upper endoscopy was grossly normal. 10/09/2023 11:33 AM T [email or web address] Gross Description A) Received in formalin is a dawson mucosal fragment measuring 3 mm in greatest dimension, which is entirely submitted in one cassette. It is labeled with the patient's name and designated duodenum. B) Received in formalin are 2 dawson mucosal fragments averaging 2 mm in greatest dimension, which are entirely submitted in one cassette. It is labeled with the patient's name and designated random stomach. Victor Hugo Basilio 10/08/2023 9:08 AM 10/09/2023 11:33 AM CDT [facility] Microscopic Description The final diagnosis is based on microscopic examination of appropriate sections of all specimens. 10/09/2023 11:33 AM CDT [facility] Additional Information Interpreted at [facility] Central Laboratory - [address] [facility] [address], [place] [address] 10/09/2023 11:33 AM CDT [facility] Other (Duodenum Biopsy) 10/07/2023 8:50 AM CDT 10/08/2023 8:23 AM CDT Specimen (specimen) (Stomach Biopsy) 10/07/2023 8:50 AM CDT 10/08/2023 8:23 AM CDT Yordy Morin MD PATHOLOGY/CYTOLOGY [facility] [address] [place] [address], from Last 3 Months Advance Directives * Full Code (Latest Code Status on File) Date Activated Date Inactivated Comments 02/06/2023 8:49 PM 02/12/2023 11:55 AM Question Answer Comments Code Status Discussion: Reviewed Preferences * Full Code Date Activated Date Inactivated Comments 02/22/2022 9:26 AM 02/22/2022 6:27 PM Question Answer Comments Code Status Discussion: Reviewed Preferences Care Teams Oil Dipper Relationship Specialty Start Date End Date Yordy Morin MD [address] [place], [place] [phone] PCP - General Internal Medicine 08/17/21 Bennett Ayala COTA [address] [place], [place] [phone] Occupational Therapy 02/14/23
--- OUTSIDE RECORDS SUMMARY | 2023-11-15 08:01 | XMS_ITS | Referral Summary ---
Author Organization [facility] Address [address] [place] [address] Care Team Providers Care Radial Arm Saw Operator Name Role Phone Wesley Dugan MD Primary Care Provider [phone] Allergies Active Allergy Reactions Criticality Noted Date [...] MG sublingual tabletIndications:C oronary artery disease involving koi coronary artery of koi heart without angina pectoris For chest pain [...] Active oxyCODONE (ROXICODONE) 5 MG tabletIndications:P eripheral polyneuropathy,Clinical Engineering Manager lida pain syndrome TAKE ONE TABLET BY [...] Edema 08/19/2013 Coronary artery disease invo lving koi coronary artery of koi heart without angina pectoris 08/19/2013 Overview: cardiac [...] disease, unspecified COPD type 12/25/2016 08/21/2017 Health Skilled Nursing 03/09/2015 08/26/2023 Overview: Status: Closed Mine Boss: Laurence Steele RN [phone] See Letters for [facility] Care Plan Date: [...] Sex Assigned at Male 03/30/2018 7:28 AM TAG MARKER Gender Identity Male 03/30/2018 7:28 AM TAG MARKER Sexual Orientation Straight 02/18/2018 9: 07 AM TAG MARKER Last Filed Vital Signs Vital Sign Reading [...] on file Medical Devices Implanted Type Area Fax Machine Repairer Device Identifier Shelf Expiration Date Model / Serial / Lot Mesh Ventralex Hernia 2.5 Jackson Med W/Strap [id number] Implanted:Qty: 1 on 04/16/2013 by Hans Schultz MD at [facility] N/A: Umbilical 01/02/2015 [id number] / / [id number] Procedures Procedure Name Priority Date/Time Associated Diagnosis Comments URIC ACID STAT 01/31/2023 8:25 AM TAG MARKER Hematuria, unspecified BASIC METABOLIC PANEL Routine 01/24/2023 5:45 AM TAG MARKER Aftercare following joint replacement surgery CT CHEST/ABDOMEN/PELVIS [...] artery disease COLONOSCOPY Routine 02/12/2018 9:47 AM TAG MARKER SPIROMETRY - HIM SCAN Routine 12/20/2017 HEPATITIS C ANTIBODY Routine 07/25/2015 9:30 AM CDT Need for hepatitis C screening test from Last 3 Months or Most Recently Relevant to Health Maintenance Results * Uric acid (01/31/2023 8:25 AM TAG MARKER) Uric Acid 4.0 3.4 - 7.0 mg/dL 01/31/2023 11:18 AM TAG MARKER [facility] Blood BLOOD SPECIMEN / Unknown Client Draw / Unknown 01/31/2023 8:25 AM TAG MARKER 01/31/2023 10:46 AM TAG MARKER Jazmin Alvarado MD LAB - BLOOD ORDERABL ES [facility] [place] [facility] Lab [address] [facility], [address] [id number], [facility] [phone] * Basic metabolic panel (01/24/2023 5:45 AM TAG MARKER) Sodium 138 135 - 145 mmol/L 01/24/2023 10:21 AM TAG MARKER [facility] Comment:Reference intervals for this test were updated on 12/04/2022 to more accurately reflect our healthy population. There may be differences in the flagging of prior results with similar values performed with this method. Interpretation of those prior results can be made in the context of the updated reference intervals. Potassium 4.1 3.4 - 5.3 mmol/L 01/24/2023 10:21 AM TAG MARKER [facility] Chloride 104 98 - 107 mmol/L 01/24/2023 10:21 AM TAG MARKER [facility] Carbon Dioxide (CO2) 24 22 - 29 mmol/L 01/24/2023 10:21 AM TAG MARKER [facility] Anion Gap 10 7 - 15 mmol/L 01/24/2023 10:21 AM TAG MARKER [facility] Urea Nitrogen 15.2 8.0 - 23.0 mg/dL 01/24/2023 10:21 AM TAG MARKER [facility] Creatinine 0.87 0.67 - 1.17 mg/dL 01/24/2023 10:21 AM TAG MARKER [facility] GFR Estimate 89 >60 mL/min/1. 73m2 01/24/2023 10:21 AM TAG MARKER [facility] Calcium 9.4 8.8 - 10.2 mg/dL 01/24/2023 10:21 AM TAG MARKER [facility] Glucose 88 70 - 99 mg/dL 01/24/2023 10:21 AM TAG MARKER [facility] Blood STRUCTURE OF LEFT UPPER LIMB / Unknown Venipuncture / Unknown 01/24/2023 5:45 AM TAG MARKER 01/24/2023 8:02 AM TAG MARKER Jazmin Alvarado MD LAB - BLOOD ORDERABL ES [facility] [place] [facility] [address] [facility] [place] [address], [facility] [phone] * CT Chest/Abdomen/Pelvis w Contrast (09/10/2019 9:34 [...] - 144 mmol/L 09/07/2019 1:20 PM CDT [facility] Potassium 3.6 3.4 - 5.3 mmol/L 09/07/2019 1:20 PM CDT [facility] Chloride 107 94 - 109 mmol/L 09/07/2019 1:20 PM [facility] Carbon Dioxide 26 20 - 32 mmol/L 09/07/2019 1:28 PM [facility] Anion Gap 6 3 - 14 mmol/L 09/07/2019 1:28 PM [facility] Glucose 106(H) 70 - 99 mg/dL 09/07/2019 1:28 PM [facility] Urea Nitrogen 12 7 - 30 mg/dL 09/07/2019 1:28 PM [facility] Creatinine 0.79 0.66 - 1.25 mg/dL 09/07/2019 1:28 PM [facility] GFR Estimate 89 >60 mL/min/{1. 73_m2} 09/07/2019 1:28 PM [facility] Comment: Non GFR Calc Starting 02/25/2018, serum creatinine based estimated GFR (eGFR) will be calculated using the Chronic Kidney Disease Epidemiology Collaboration (CKD-EPI) equation. GFR Estimate If Black >90 >60 mL/min/{1. 73_m2} 09/07/2019 1:28 PM [facility] Comment: GFR Calc Starting 02/25/2018, serum creatinine based estimated GFR (eGFR) will be calculated using the Chronic Kidney Disease Epidemiology Collaboration (CKD-EPI) equation. Calcium 9.0 8.5 - 10.1 mg/dL 09/07/2019 1:28 PM [facility] Bilirubin Total 0.8 0.2 - 1.3 mg/dL 09/07/2019 1:30 PM [facility] Albumin 3.7 3.4 - 5.0 g/dL 09/07/2019 1:30 PM [facility] Protein Total 7.2 6.8 - 8.8 g/dL 09/07/2019 1:30 PM [facility] Alkaline Phosphatase 101 40 - 150 U/L 09/07/2019 1:30 PM [facility] ALT 25 0 - 70 U/L 09/07/2019 1:30 PM [facility] AST 19 0 - 45 U/L 09/07/2019 1:30 PM [facility] Blood specimen (specimen) 09/07/2019 12:48 PM CDT 09/07/2019 12:54 PM CDT Migue Browne MD LAB - BLOOD CHRISTOPHER DIEGO [facility] [address] [place] [id number], [facility] [phone] * Drug Screen Comprehensive, Urine w/o Reported Meds (Pain Care Package) (08/17/2019 9:49 AM CDT) Pathologist [facility] Comprehen Drug Analysis UR FINAL 08/20/2019 4:37 PM CDT [facility] Comment: (Note) COMPREHENSIVE DRUG ANALYSIS,UR Test [...] consultation, please call . Analysis performed by [facility], [employer] [place] [address] Urine specimen (specimen) 08/17/2019 9:49 AM CDT 08/17/2019 9:50 AM CDT Wesley Dugan MD LAB - URINE ORDERABL ES Performing Organization Address City/[facility]/ZIP Co de Phone Number [facility] [address] [place] [address] * (ABNORMAL) Lipid Profile (10/31/2018 7:23 AM CDT) Cholesterol 136 <200 mg/dL 10/31/2018 7:55 AM CDT [facility] Triglycerides 113 <150 mg/dL 10/31/2018 7:55 AM T [facility] Comment:Fasting specimen HDL Cholesterol 36(L) >39 mg/dL 9 7:58 AM T [facility] LDL Cholesterol Calculated 77 <100 mg/dL 10/31/2018 7:58 AM T [facility] Comment:Desirable: <100 mg/d l Non HDL Cholesterol 100 <130 mg/dL 10/31/2018 7:58 AM T [facility] Blood specimen (specimen) 10/31/2018 7:23 AM CDT 10/31/2018 7:29 AM CDT Miguel Culver PA-C LAB - BLOOD ORDERABL ES Performing Organization Address City/[facility]/ZIP Co de Phone Number [facility] [address] [place] [address], [facility] [phone] [facility] [address] [place] [address], [facility] [phone] * COLONOSCOPY (02/12/2018 9:47 AM TAG MARKER) COLONOSCOPY [facility] Patient Name: Butch Nieves ?Procedure [...] # [id number], ?[place] # [id number], SN # [id number] was introduced through ?the anus and advanced [...] Procedure Code(s): ? --- Professional --- ? 23842, Colonoscopy, flexible; with removal of tumor(s), polyp(s), or ? other lesion(s) by snare technique Diagnosis Code(s): ? --- Professional --- ? D12.3, Benign neoplasm of transverse colon (hepatic flexure or splenic ? flexure) ? D12.2, Benign neoplasm of ascending colon CPT copyright 2017 [employer]. All rights reserved. The codes documented in this report are preliminary and upon hand worker review may be revised to meet current compliance requirements. Electronically signed by Joe Dent MD __ Joe Dent MD 02/12/2018 10:36:09 AM I was physically present for the entire viewing portion of the exam. Joe Dent MD Number of Addenda: 0 Note Initiated On: 02/12/2018 9:47 AM MRN: ?[id number] Procedure Date: ? 02/12/2018 9:47:22 AM Scope Withdrawal Time: 0 hours 6 minutes 17 seconds Total Procedure Duration: 0 hours 14 minutes 28 seconds Estimated Blood Loss: ? Scope In: 10:18:46 AM Scope Out: 10:33:14 AM RADIOLOGY RESULTS 02/12/2018 9:47 AM TAG MARKER Joe Dent MD PROCEDURES RADIOLOGY RESULTS * Spirometry - HIM Scan (12/20/2017) Narrative Arin Berkowitz - 12/20/2017 [facility]-Progress note Provider Outside PFT ORDERABLES * Hepatitis C antibody (07/25/2015 9:30 AM CDT) Hepatitis C Antibody Nonreactive Assay performance characteristics have not been established for newborns, infants, and children NR [facility] Blood specimen (specimen) 07/25/2015 9:30 AM CDT 07/25/2015 9:31 AM CDT Wesley Dugan MD LAB - BLOOD ORDERABL ES [facility] [address] [place] [address] from Last 3 Months or Most Recently Relevant to Health Maintenance Advance Directives For more information, please contact: [phone] Documents on File Type Date Recorded Patient Site Manager Expl anation Advance Directives and Living Will 11/15/2017 2:53 PM Health Care Directiv e 11/12/17 * Full Code (Latest Code Status on File) Date Activated Date Inactivated Comments 03/06/2015 9:26 AM 04/01/2018 1:20 PM * Full Code Date Activated Date Inactivated Comments 03/05/2015 6:19 PM 03/06/2015 9:26 AM Care Teams Radial Arm Saw Operator Relationship Specialty [place] [address] [place] [address] PCP - General Family Practice 03/14/21
--- OUTSIDE RECORDS SUMMARY | 2023-11-15 08:02 | XMS_ITS | Encounter Summary ---
Author Organization [facility] Address [address] [place] [address]. [place] [address] Care Team Providers Care Training Instructor Name Role Phone Wesley Dugan MD Primary Care Provider Wesley Dugan MD Unavailable [phone] Nela Sheth RN Unavailable Unavailable Ella Matias PA-C Unavailable Santi Heller MD Unavailable [phone] Aashish Leone MD Unavailable Unavail able Tato Mallory MD Unavailable [phone] Chirag Taylor MD Primary Care Provider + Miguel Culver PA-C Unavailable Wesley Dugan MD Unavailable [phone] Reason for Visit * Reason Comments Medication Refill Encounter Details Date Type Department Care Team (Late st Contact Info) Description 08/26/2019 Refill [facility] [address] [place] [address] [place] [id number] [place] [address] Medication Refill Social History Tobacco Use Types Packs/Day Years Used Date Smoking Tobacco: Former Cigarettes 0 1958 - 2016 Smokeless Tobacco: Never Alcohol Use Standard Drinks/Week Comments Not Currently 0 (1 standard drink = 0.6 oz pur e alcohol) PHQ-2 Answer Date Recorded PHQ-2 Score 0 08/17/2019 Sex and Gender Information Value Date Recorded Sex Assigned at Male 03/30/2018 7:28 AM EMBEDDED SYSTEMS DEVELOPER Gender Identity Male 03/30/2018 7:28 AM EMBEDDED SYSTEMS DEVELOPER Sexual Orientation Straight 02/18/2018 9: 07 AM EMBEDDED SYSTEMS DEVELOPER COVID-19 Exposure Response Date Recorded In the last month, have you been in contact with someone who was confirmed or suspected to have Coronavirus / COVID-19? No / Unsure 08/28/2019 8:30 AM CDT documented as of this encounter Miscellaneous Notes * Telephone Encounter - Charlotte Castro RN - 08/26/2019 1:13 PM CDT Medication refilled per [facility] protocol Charlotte Castro RN documented in this encounter Plan of Treatment Not on file documented as of this encounter Visit Diagnoses Diagnosis Hx of coronary artery disease Personal history of other diseases of circulatory system documented in this encounter Additional Health Concerns Assessment Noted Time PHQ-9 Depression Total Score: 8 08/15/19 7:03 AM CDT documented as of this encounter Care Teams Training Instructor Relationship Specialty [place] [address] [place] [address] PCP - General Family Practice 03/14/21 Chirag Taylor MD [address] [place] [address] PCP - General 03/15/20 03/13/21 [place] [address] [place] [address] Assigned PCP 09/19/14 02/23/22 Ulen, Nela A, RN Personal Advocate & Liaison (PAL) Family Practice 10/13/19 03/14/20 Ella Matias PA-C [address] [place] [address] Assigned Cancer Care Provider 01/01/20 03/18/21 Santi Heller MD [address] [facility] [address] [place] [address] Assigned Surgical Provider 01/01/2003/01 Aashish Leone MD Assigned Heart and Vascular Provider 01/01/20 05/07/20 [place] [address] [facility] [address] [place] [address] Assigned Musculoskeletal Provider 01/01/20 07/23/20 Miguel Culver PA-C [address] [place] [address] Assigned Heart and Vascular Provider 05/25/20 04/29/21 [place] [address] [place], [place] [address] Assigned PCP 05/05/22 10/19/22 documented as of this encounter
--- OUTSIDE RECORDS SUMMARY | 2023-11-15 08:02 | XMS_ITS | Encounter Summary ---
Author Organization [facility] Address [address] [place] [address] Care Team Providers Care Environmental Services Technician Name Role Phone [facility] Unavailable Ana Maravilla MD Primary Care Provide r Unavailable Wesley Dugan MD Primary Care Provider [phone] Laurence Steele RN Unavailable [phone] Wesley Dugan MD Unavailable Wesley Dugan MD Unavailable [phone] Nela Sheth RN Unavailable Unavailable Ella Matias PA-C Unavailable Santi Heller MD Unavailable Aashish Leone MD Unavailable Unavail able Tato Mallory MD Unavailable [phone] Chirag Taylor MD Primary Care Provider + Miguel Culver PA-C Unavailable Wesley Dugan MD Unavailable [phone] Encounter Details Date Type Department Care Team (Late st Contact Info) Description 07/02/2013 Office Visit-[facility] [address] [place] [phone] Milagros Manzano, TABLE WORKER PACKAGER RECREATION DIRECTOR [address] [facility] [address] [place] [address] Social History Tobacco Use Types Packs/Day Years Used Date Smoking Tobacco: Every Day Cigarettes 0.8 53 Smokeless Tobacco: Never Alcohol Use Standard Drinks/Week Comments Yes 0 (1 standard drink = 0.6 oz pur e alcohol) social 2 drinks/week Sex and Gender Information Value Date Recorded Sex Assigned at Male 03/30/2018 7:28 AM CEO & FOUNDER Gender Identity Male 03/30/2018 7:28 AM CEO & FOUNDER Sexual Orientation Straight 02/18/2018 9: 07 AM CEO & FOUNDER documented as of this encounter Progress Notes * Milagros Manzano, AZEEM - 07/08/2013 9:34 AM CDT Progress Note Created by: Milagros Manzano, BRIAN [id number] DATE: 07/02/2013 KANDY CANTRELL DATE OF : [...] ago. He has been treated previously at [facility] for peripheral arterial disease. He underwent endovascular [...] Residence -lives with, daughter and lives in [place] year round; REVIEW OF SYSTEMS GENERAL increased [...] (DR/EC), One tablet p.o. daily, #30 (Thirty) Usysmrgt19 mg capsule,delayed release(DR/EC), 1 p.o. daily, #0 [...] as of this encounter Care Teams Environmental Services Technician Relationship Specialty [place] [address] [place] [address] PCP - General Family Practice 03/02/13 12/21/14 [place] [address] [place] [address] PCP - General Family Practice 03/14/21 [place] [address] [place] [address] PCP - Assigned PCP 09/19/14 05/13/18 [place] [address] [address] PCP - General 03/15/20 03/13/[address] [id number] 02/10/13 03/08/15 Laurence Steele RN Clinic Printing Machine Operator Nurse 03/09/15 [place] [address] [place] [address] Assigned PCP 09/19/14 02/23/22 Nela Sheth RN Personal Advocate & Liaison (PAL) Family Practice 10/13/19 03/14/20 Ella Matias, PA-C 9[address] [place] [address] Assigned Cancer Care Provider 01/01/20 03/18/21 Santi Heller MD [address] [facility] [address] [place] [address] Assigned Surgical Provider 01/01/2003/01 Aashish Leone MD Assigned Heart and Vascular Provider 01/01/20 05/07/20 [place] [address] [address] Assigned Musculoskeletal Provider 01/01/20 07/23/20 Miguel Culver PA-C [address] [place] [address] Assigned Heart and Vascular Provider 05/25/20 04/29/21 [place] [address] [place] [address] Assigned PCP 05/05/22 10/19/22 documented as of this encounter
--- OUTSIDE RECORDS SUMMARY | 2023-11-15 08:02 | XMS_ITS | Encounter Summary ---
Author Organization [facility] Address [address] [place] [address] Care Team Providers Care Alarm Technician Name Role Phone [facility] Unavailable Ana Maravilla MD Primary Care Provide r Unavailable Wesley Dugan MD Primary Care Provider [phone] Laurence Steele RN Unavailable Wesley Dugan MD Unavailable [phone] Wesley Dugan MD Unavailable [phone] Nela Sheth RN Unavailable Unavailable Ella Matias PA-C Unavailable Santi Heller MD Unavailable Aashish Leone MD Unavailable Unavail able Tato Mallory MD Unavailable [phone] Chirag Taylor MD Primary Care Provider + Miguel Culver PA-C Unavailable [phone] Wesley Dugan MD Unavailable [phone] Encounter Details Date Type Department Care Team (Late st Contact Info) Description 07/16/2013 Office Visit-[facility] [address] [place] [phone] Milagros Manzano, MOLDING AND TRIM INSTALLER [employer] CONCRETE PRODUCTS INSTALLER [address] [facility] [address] [place] [address] Social History Tobacco Use Types Packs/Day Years Used Date Smoking Tobacco: Every Day Cigarettes 0.8 53 Smokeless Tobacco: Never Alcohol Use Standard Drinks/Week Comments Yes 0 (1 standard drink = 0.6 oz pur e alcohol) social 2 drinks/week Sex and Gender Information Value Date Recorded Sex Assigned at Male 03/30/2018 7:28 AM MICROPHONE BOOM OPERATOR Gender Identity Male 03/30/2018 7:28 AM MICROPHONE BOOM OPERATOR Sexual Orientation Straight 02/18/2018 9: 07 AM MICROPHONE BOOM OPERATOR documented as of this encounter Progress Notes * Milagros Manzano, AZEEM - 07/20/2013 10:50 AM CDT Progress Note Created by: Milagros Manzano, BRIAN [id number] DATE: 07/16/2013 KANDY CANTRELL DATE OF : [...] years ago. He was treated previously at [facility] for peripheral arterial disease. He underwent [...] Residence -lives with, daughter and lives in [place] year round; REVIEW OF SYSTEMS GENERAL negative [...] documented as of this encounter Care Teams Alarm Technician Relationship Specialty [place] [address] [place] [address] PCP - General Family Practice 03/02/13 12/21/14 [place] [address] [place] [address] PCP - General Family Practice 03/14/21 [place] [address] [place] [address] PCP - Assigned PCP 09/19/14 05/13/18 [place] [address] [address] PCP - General 03/15/20 03/13/[address] [address] 02/10/13 03/08/15 Laurence Steele RN Clinic Proofer Prepress Nurse 03/09/15 [place] [address] [place] [address] Assigned PCP 09/19/14 02/23/22 Nela Sheth RN Personal Advocate & Liaison (PAL) Family Practice 10/13/19 03/14/20 Ella Matias PA-C [address] [place] [address] Assigned Cancer Care Provider 01/01/20 03/18/21 Santi Heller MD [address] [facility] 500 [place] [address] Assigned Surgical Provider 01/01/2003/01 Aashish Leone MD Assigned Heart and Vascular Provider 01/01/20 05/07/20 [place] [address] [employer] [facility] [address] [place] [address] Assigned Musculoskeletal Provider 01/01/20 07/23/20 Miguel Culver PA-C [address] [place] [address] Assigned Heart and Vascular Provider 05/25/20 04/29/21 [place] [address] [place] [address] Assigned PCP 05/05/22 10/19/22 documented as of this encounter
--- OUTSIDE RECORDS SUMMARY | 2023-11-15 08:02 | XMS_ITS | Encounter Summary ---
Author Organization [facility] Address [address] [place] [address] Care Team Providers Care Solar Sales Energy Advisor Name Role Phone Wesley Dugan MD Primary Care Provider [phone] Wesley Dugan MD Unavailable [phone] Nela Sheth RN Unavailable Unavailable Ella Matias PA-C Unavailable Santi Heller MD Unavailable Aashish Leone MD Unavailable Unavail able Tato Mallory MD Unavailable [phone] Chirag Taylor MD Primary Care Provider + Miguel Culver PA-C Unavailable [phone] Wesley Dugan MD Unavailable [phone] Encounter Details Date Type Department Care Team (Late st Contact Info) Description 09/30/2018 [facility] [address] [address] Varsha Jeronimo RN Social History [...] Sex Assigned at Male 03/30/2018 7:28 AM SUPERINTENDENT DIVISION Gender Identity Male 03/30/2018 7:28 AM SUPERINTENDENT DIVISION Sexual Orientation Straight 02/18/2018 9: 07 AM SUPERINTENDENT DIVISION documented as of this encounter Plan of Treatment Not on file documented as of this encounter Visit Diagnoses Not on filedocumented in this encounter Additional Health Concerns Infection Onset Date Last Indicated Resolved Time Rule Out COVID-19 07/27/2019 07/27/2019 07/27/2019 10:15 PM CDT Assessment Noted Time PHQ-9 Depression Total Score: 8 09/05/19 19 3:51 PM CDT documented as of this encounter Care Teams Solar Sales Energy Advisor Relationship Specialty [place] [address] [place] [address] PCP - General Family Practice 03/14/21 [place] [address] [address] PCP - General 03/15/20 03/13/21 [place] [address] [place] [address] Assigned PCP 09/19/14 02/23/22 Nela Sheth RN Personal Advocate & Liaison (PAL) Family Practice 10/13/19 03/14/20 Ella Matias, PALizzethC [address] [place] [address] Assigned Cancer Care Provider 01/01/20 03/18/21 Santi Heller MD 6[address] [facility] 500 [place] [address] Assigned Surgical Provider 01/01/2003/01 Aashish Leone MD Assigned Heart and Vascular Provider 01/01/20 05/07/20 [place] [address] [address] Assigned Musculoskeletal Provider 01/01/20 07/23/20 Miguel Culver PA-C [address] [place] [address] Assigned Heart and Vascular Provider 05/25/20 04/29/21 [place] [address] [place] [address] Assigned PCP 05/05/22 10/19/22 documented as of this encounter
--- OUTSIDE RECORDS SUMMARY | 2023-11-15 08:02 | XMS_ITS | Encounter Summary ---
Author Organization [facility] Address [address] [place] [address]. [place] [address] Care Team Providers Care Strike On Machine Operator Name Role Phone Wesley Dugan MD Primary Care Provider Wesley Dugan MD Unavailable [phone] Nela Sheth RN Unavailable Unavailable Ella Matias PA-C Unavailable Santi Heller MD Unavailable [phone] Aashish Leone MD Unavailable Unavail able Tato Mallory MD Unavailable Chirag Taylor MD Primary Care Provider + Miguel Culver PA-C Unavailable Wesley Dugan MD Unavailable [phone] Reason for Visit * Reason Comments Medication Refill Encounter Details Date Type Department Care Team (Late st Contact Info) Description 02/23/2019 Refill [facility] [id number] [place] [address] [place]ug[place] [id number] [place] [address] Medication Refill Social History Tobacco Use Types Packs/Day Years Used Date Smoking Tobacco: Former Cigarettes 0 1958 - 2016 Smokeless Tobacco: Never Alcohol Use Standard Drinks/Week Comments Not Currently 0 (1 standard drink = 0.6 oz pur e alcohol) PHQ-2 Answer Date Recorded PHQ-2 Score 3 02/27/2019 Sex and Gender Information Value Date Recorded Sex Assigned at Male 03/30/2018 7:28 AM ASSISTANT ASSOCIATE FULL PROFESSOR Gender Identity Male 03/30/2018 7:28 AM ASSISTANT ASSOCIATE FULL PROFESSOR Sexual Orientation Straight 02/18/2018 9: 07 AM ASSISTANT ASSOCIATE FULL PROFESSOR documented as of this encounter Miscellaneous Notes [...] Labs not current: Last uric acid 2016 STANT ASSOCIATE FULL PROFESSOR documented in this encounter Plan of Treatment [...] documented as of this encounter Care Teams Strike On Machine Operator Relationship Specialty [place] [address] [place] [address] PCP - General Family Practice 03/14/21 Chirag Taylor MD [address] [place] [address] PCP - General 03/15/20 03/13/21 [place] [address] [place] [address] Assigned PCP 09/19/14 02/23/22 Nela Sheth RN Personal Advocate & Liaison (PAL) Family Practice 10/13/19 03/14/20 Ella Matias PA-C 909 [place] [address] Assigned Cancer Care Provider 01/01/20 03/18/21 Santi Heller MD 6363 [facility] 500 [place] [address] Assigned Surgical Provider 01/01/2003/01 Aashish Leone MD Assigned Heart and Vascular Provider 01/01/20 05/07/20 [place] [address] [facility] 300 [place] [address] Assigned Musculoskeletal Provider 01/01/20 07/23/20 Miguel Culver PA-C 6405 [place] [address] Assigned Heart and Vascular Provider 05/25/20 04/29/21 [place] [address] [place] [address] Assigned PCP 05/05/22 10/19/22 documented as of this encounter
--- OUTSIDE RECORDS SUMMARY | 2023-11-15 08:02 | XMS_ITS | Encounter Summary ---
Author Organization [facility] Address [address] [place] [address]. [place] [address] Care Team Providers Care Senior Enterprise Architect Name Role Phone Wesley Dugan MD Primary Care Provider [phone] Wesley Dugan MD Unavailable [phone] Nela Sheth RN Unavailable Unavailable Ella Matias PA-C Unavailable Santi Heller MD Unavailable Aashish Leone MD Unavailable Unavail able Tato Mallory MD Unavailable Chirag Taylor MD Primary Care Provider + Miguel Culver PA-C Unavailable [phone] Wesley Dugan MD Unavailable [phone] Reason for Visit * Reason Onset Date Comments Medication Refill Refill Request 01/12/2020 Encounter Details Date Type Department Care Team (Late st Contact Info) Description 01/11/2020 Refill [facility] [address] [place] [phone] [place] [address] [place] [address] Medication Refill; Refill Request Social [...] Sex Assigned at Male 03/30/2018 7:28 AM DETECTIVE HOMICIDE SQUAD Gender Identity Male 03/30/2018 7:28 AM DETECTIVE HOMICIDE SQUAD Sexual Orientation Straight 02/18/2018 9: 07 AM DETECTIVE HOMICIDE SQUAD COVID-19 Exposure Response Date Recorded In the last month, have you been in contact with someone who was confirmed or suspected to have Coronavirus / COVID-19? No / Unsure 01/07/2020 7:50 AM CDT documented as of this encounter Miscellaneous Notes * Telephone Encounter - Wesley Dugan MD - 01/11/2020 12:03 PM CST Sent Needs visit virtual Dec Wesley Dugan MD CTIVE HOMICIDE SQUAD * Telephone Encounter - Brooklyn Katz RN - 01/11/2020 10:23 AM DETECTIVE HOMICIDE SQUAD Routing refill request to provider for review/approval because: [place] [facility] [place] Brooklyn Katz RN on 01/11/2020 at 10:23 AM CTIVE HOMICIDE SQUAD documented in this encounter Plan of Treatment Not on file documented as of this encounter Visit Diagnoses Diagnosis Peripheral polyneuropathy Unspecified hereditary and idiopathic peripheral neuropathy Chronic pain syndrome documented in this encounter Additional Health Concerns Assessment Noted Time PHQ-9 Depression Total Score: 7 10/16/19 20 7:11 AM CDT documented as of this encounter Care Teams Senior Enterprise Architect Relationship Specialty [place] [address] [place] [address] PCP - General Family Practice 03/14/21 [place] [address] [address] PCP - General 03/15/20 03/13/21 [place] [address] [place] [address] Assigned PCP 09/19/14 02/23/22 Nela Sheth, RN Personal Advocate & Liaison (PAL) Family Practice 10/13/19 03/14/20 Ella Matias PA-C 909 [place] [address] Assigned Cancer Care Provider 01/01/20 03/18/21 Santi Heller MD 6363 [facility] 500 [place] [address] Assigned Surgical Provider 01/01/2003/01 Aashish Leone MD Assigned Heart and Vascular Provider 01/01/20 05/07/20 [place] [address] [facility] 300 [place] [address] Assigned Musculoskeletal Provider 01/01/20 07/23/20 Miguel Culver PA-C 6405 [place] [address] Assigned Heart and Vascular Provider 05/25/20 04/29/21 [place] [address] [place] [address] Assigned PCP 05/05/22 10/19/22 documented as of this encounter
--- OUTSIDE RECORDS SUMMARY | 2023-11-15 08:02 | XMS_ITS | Encounter Summary ---
Author Organization [place] Address [address] [place] [address]. [place] [address] Care Team Providers Care Gaming Cage Cashier Name Role Phone Wesley Dugan MD Primary Care Provider Wesley Dugan MD Unavailable [phone] Nela Sheth RN Unavailable Unavailable Ella Matias PA-C Unavailable Santi Heller MD Unavailable Aashish Leone MD Unavailable Unavail able Tato Mallory MD Unavailable Chirag Taylor MD Primary Care Provider + Miguel Culver PA-C Unavailable Wesley Dugan MD Unavailable [phone] Reason for Visit * Reason Comments Medication Refill Encounter Details Date Type Department Care Team (Late st Contact Info) Description 01/24/2020 Refill [facility] [address] [place] [phone] [place]ug[place] [address] [place] [address] Medication Refill Social History Tobacco Use Types Packs/Day Years Used Date Smoking Tobacco: Former Cigarettes 0 1958 - 2016 Smokeless Tobacco: Never Alcohol Use Standard Drinks/Week Comments Not Currently 0 (1 standard drink = 0.6 oz pur e alcohol) PHQ-2 Answer Date Recorded PHQ-2 Score 2 10/16/2019 Sex and Gender Information Value Date Recorded Sex Assigned at Male 03/30/2018 7:28 AM BEVERAGE SALES CONSULTANT Gender Identity Male 03/30/2018 7:28 AM BEVERAGE SALES CONSULTANT Sexual Orientation Straight 02/18/2018 9: 07 AM BEVERAGE SALES CONSULTANT COVID-19 Exposure Response Date Recorded In the last month, have you been in contact with someone who was confirmed or suspected to have Coronavirus / COVID-19? No / Unsure 01/15/2020 9:30 AM BEVERAGE SALES CONSULTANT documented as of this encounter Miscellaneous Notes * Telephone Encounter - Amarilis Noble RN - 01/26/2020 1:38 PM CST Routing refill request to provider for review/approval because: Allergy warning Amarilis Noble RN, BSN RAGE SALES CONSULTANT documented in this encounter Plan of Treatment [...] documented as of this encounter Care Teams Gaming Cage Cashier Relationship Specialty [place] [address] [place] [address] PCP - General Family Practice 03/14/21 [place] [address] [address] PCP - General 03/15/20 03/13/21 [place] [address] [place] [address] Assigned PCP 09/19/14 02/23/22 Nela Sheth, RN Personal Advocate & Liaison (PAL) Family Practice 10/13/19 03/14/20 Ella Matias PA-C 909 [place] [address] Assigned Cancer Care Provider 01/01/20 03/18/21 Santi Heller MD [address] [facility] 500 [place], [place] [address] Assigned Surgical Provider 01/01/2003/01 Aashish Leone MD Assigned Heart and Vascular Provider 01/01/20 05/07/20 [place] [address] [facility] 300 [place] [address] Assigned Musculoskeletal Provider 01/01/20 07/23/20 Miguel Culver PA-C [address] [facility] [place] [address] Assigned Heart and Vascular Provider 05/25/20 04/29/21 [place] [address] [place] [address] Assigned PCP 05/05/22 10/19/22 documented as of this encounter
--- OUTSIDE RECORDS SUMMARY | 2023-11-15 08:02 | XMS_ITS | Encounter Summary ---
Author Organization [facility] Address [address] [place] [address] Care Team Providers Care Rubber Tile Floor Layer Name Role Phone Wesley Dugan MD Primary Care Provider [phone] Wesley Dugan MD Unavailable [phone] Wesley Dugan MD Unavailable [phone] Encounter Details Date Type Department Care Team (Late st Contact Info) Description 11/20/2021 [facility] Medical Advice [address] [address] Yael Bardales MA Social History [...] Sex Assigned at Male 03/30/2018 7:28 AM SENIOR PRODUCT DEVELOPMENT ENGINEER Gender Identity Male 03/30/2018 7:28 AM SENIOR PRODUCT DEVELOPMENT ENGINEER Sexual Orientation Straight 02/18/2018 9: 07 AM SENIOR PRODUCT DEVELOPMENT ENGINEER documented as of this encounter Plan of Treatment Not on file documented as of this encounter Visit Diagnoses Not on filedocumented in this encounter Additional Health Concerns Assessment Noted Time PHQ-9 Depression Total Score: 7 10/16/19 20 7:11 AM CDT documented as of this encounter Care Teams Rubber Tile Floor Layer Relationship Specialty [place] [address] [place] [address] PCP - General Family Practice 03/14/21 [place] [address] [place] [address] Assigned PCP 09/19/14 02/23/22 [place] [address] [place] [address] Assigned PCP 05/05/22 10/19/22 documented as of this encounter
--- OUTSIDE RECORDS SUMMARY | 2023-11-15 08:02 | XMS_ITS | Encounter Summary ---
Author Organization [facility] Address [address] [place] [address] Care Team Providers Care Quality Assurance Specialist Name Role Phone Wesley Dugan MD Primary Care Provider Wesley Dugan MD Unavailable [phone] Nela Sheth RN Unavailable Unavailable Ella Matias PA-C Unavailable Santi Heller MD Unavailable Aashish Leone MD Unavailable Unavail able Tato Mallory MD Unavailable Chirag Taylor MD Primary Care Provider + Miguel Culver PA-C Unavailable Wesley Dugan MD Unavailable [phone] Reason for Visit * Reason Onset Date Comments Referral 08/18/2019 Pt being referre d for Dysuria/Benign prostatic hyperplasia with weak urinary stream, records and referral in [facility] Referral 08/18/2019 pt is calling ab out the referral, hoping to get a call today Encounter Details Date Type Department Care Team (Late st Contact Info) Description 08/18/2019 Telephone [facility] Prostate [facility] Urologic Cancers 909 [facility] 4th [place] [address] Unknown Referral (Pt being referred for Dysuria/Benign prostatic hyperplasia with weak urinary stream, records and referral in [facility]); Referral (pt is calling about the [...] Sex Assigned at Male 03/30/2018 7:28 AM PATTERN TECHNICIAN Gender Identity Male 03/30/2018 7:28 AM PATTERN TECHNICIAN Sexual Orientation Straight 02/18/2018 9: 07 AM PATTERN TECHNICIAN COVID-19 Exposure Response Date Recorded In the [...] have his ER follow up done at [facility] urology department not here at the [facility]urology department. Please call patient to coordinate this [...] someone. Action Taken: Message routed to: Other: [facility] Travel Screening: Not Applicable * Telephone Encounter - Danette Ye - 08/20/2019 9:17 AM CDT [facility] Phone Message May a detailed message be left on voicemail: yes Reason for Call: Other: pt would like to get in AN. He has burning pain. Please call to schedule. Action Taken: Message routed to: [facility] ([facility]): urology Travel Screening: Not Applicable * Telephone Encounter - Danilo Aracely - 08/18/2019 2:30 PM CDT [facility] Center Phone Message May a detailed message be left on voicemail: yes Reason for Call: Other: Pt being referred for Dysuria/Benign prostatic hyperplasia with weak urinary stream, records and referral in [facility] Action Taken: Message routed to: [facility] ([facility]): urology. Travel Screening: Not Applicable documented in this encounter Plan of Treatment Not on file documented as of this encounter Visit Diagnoses Not on filedocumented in this encounter Additional Health Concerns Assessment Noted Time PHQ-9 Depression Total Score: 8 08/15/19 7:03 AM CDT documented as of this encounter Care Teams Quality Assurance Specialist Relationship Specialty [place] [address] [place], [place] [id number] PCP - General Family Practice 03/14/21 [place] [address] [address] PCP - General 03/15/20 03/13/21 [place] [address] [place] [address] Assigned PCP 09/19/14 02/23/22 Nela Sheth, JARON Personal Advocate & Liaison (PAL) Family Practice 10/13/19 03/14/20 Ella Matias, PA-C 909 [place] [address] Assigned Cancer Care Provider 01/01/20 03/18/21 Santi Heller MD 6363 [facility] 500 [place] [address] Assigned Surgical Provider 01/01/2003/01 Aashish Leone MD Assigned Heart and Vascular Provider 01/01/20 05/07/20 [place] [address] [facility] 300 [place] [address] Assigned Musculoskeletal Provider 01/01/20 07/23/20 Miguel Culver PA-C 6405 [place] [address] Assigned Heart and Vascular Provider 05/25/20 04/29/21 [place] [address] [place] [address] Assigned PCP 05/05/22 10/19/22 documented as of this encounter
--- OUTSIDE RECORDS SUMMARY | 2023-11-15 08:02 | XMS_ITS | Encounter Summary ---
Author Organization [facility] Address [address] [place] [address]. [place] [address] Care Team Providers Care Slicing Machine Tender Name Role Phone Wesley Dugan MD Primary Care Provider Wesley Dugan MD Unavailable [phone] Nela Sheth RN Unavailable Unavailable Ella Matias PA-C Unavailable Santi Heller MD Unavailable [phone] Aashish Leone MD Unavailable Unavail able Tato Mallory MD Unavailable Chirag Taylor MD Primary Care Provider + Miguel Culver PA-C Unavailable Wesley Dugan MD Unavailable [phone] Reason for Visit * Reason Comments Medication Refill Encounter Details Date Type Department Care Team (Late st Contact Info) Description [facility] [address] [place] [address] Wesley Dugan [place] [id number] [place] [address] Medication Refill Social History Tobacco Use Types Packs/Day Years Used Date Smoking Tobacco: Former Cigarettes 0 1958 - 2016 Smokeless Tobacco: Never Alcohol Use Standard Drinks/Week Comments Not Currently 0 (1 standard drink = 0.6 oz pur e alcohol) PHQ-2 Answer Date Recorded PHQ-2 Score 2 10/16/2019 Sex and Gender Information Value Date Recorded Sex Assigned at Male 03/30/2018 7:28 AM HAND CELL TUBER Gender Identity Male 03/30/2018 7:28 AM HAND CELL TUBER Sexual Orientation Straight 02/18/2018 9: 07 AM HAND CELL TUBER documented as of this encounter Miscellaneous Notes * Telephone Encounter - Brooklyn Katz RN - 12/15/2019 9:15 AM CDT Prescription approved per [facility] Refill Protocol. Brooklyn Katz RN on 12/15/2019 at 9:15 AM documented in this encounter Plan of Treatment Not on file documented as of this encounter Visit Diagnoses Diagnosis Panlobular emphysema (H) Other emphysema documented in this encounter Additional Health Concerns Assessment Noted Time PHQ-9 Depression Total Score: 7 10/16/19 20 7:11 AM CDT documented as of this encounter Care Teams Slicing Machine Tender Relationship Specialty [place] [address] [place], [place] [id number] PCP - General Family Practice 03/14/21 Chirag Taylor MD [address] [place] [address] PCP - General 03/15/20 03/13/21 [place] [address] [place] [address] Assigned PCP 09/19/14 02/23/22 Nela Sheth RN Personal Advocate & Liaison (PAL) Family Practice 10/13/19 03/14/20 Ella Matias, NIRC 909 [place] [address] Assigned Cancer Care Provider 01/01/20 03/18/21 Santi Heller MD 6363 [facility] 500 [place] [address] Assigned Surgical Provider 01/01/2003/01 Aashish Leone MD Assigned Heart and Vascular Provider 01/01/20 05/07/20 [place] [address] [facility] 300 [place], [place] [address] Assigned Musculoskeletal Provider 01/01/20 07/23/20 Miguel Culver PA-C [address] [place] [address] Assigned Heart and Vascular Provider 05/25/20 04/29/21 [place] [address] [place] [address] Assigned PCP 05/05/22 10/19/22 documented as of this encounter
--- OUTSIDE RECORDS SUMMARY | 2023-11-15 08:02 | XMS_ITS | Encounter Summary ---
Author Organization [facility] Address [address] [place] [address]. [place] [address] Care Team Providers Care Supervisor Of Officials Name Role Phone Wesley Dugan MD Primary Care Provider Wesley Dugan MD Unavailable [phone] Nela Sheth RN Unavailable Unavailable Ella Matias PA-C Unavailable Santi Heller MD Unavailable Aashish Leone MD Unavailable Unavail able Tato Mallory MD Unavailable [phone] Chirag Taylor MD Primary Care Provider + Miguel Culver PA-C Unavailable [phone] Wesley Dugan MD Unavailable [phone] Reason for Visit * Reason Comments Medication Refill Encounter Details Date Type Department Care Team (Late st Contact Info) Description [facility] [address] [place] [phone] Wesley Dugan [place] [id number] [place] [address] Medication Refill Social History Tobacco Use Types Packs/Day Years Used Date Smoking Tobacco: Former Cigarettes 0 1958 - 2016 Smokeless Tobacco: Never Alcohol Use Standard Drinks/Week Comments Not Currently 0 (1 standard drink = 0.6 oz pur e alcohol) PHQ-2 Answer Date Recorded PHQ-2 Score 2 10/16/2019 Sex and Gender Information Value Date Recorded Sex Assigned at Male 03/30/2018 7:28 AM MARKETING REP Gender Identity Male 03/30/2018 7:28 AM MARKETING REP Sexual Orientation Straight 02/18/2018 9: 07 AM MARKETING REP documented as of this encounter Miscellaneous Notes * Telephone Encounter - Naida Vasquez RN - 12/11/2019 11:27 AM CDT Prescription approved per [facility] Refill Protocol. Naida Vasquez RN Flex documented in this encounter Plan of Treatment Not on file documented as of this encounter Visit Diagnoses Diagnosis Panlobular emphysema (H) Other emphysema documented in this encounter Additional Health Concerns Assessment Noted Time PHQ-9 Depression Total Score: 7 10/16/19 20 7:11 AM CDT documented as of this encounter Care Teams Supervisor Of Officials Relationship Specialty [place] [address] [place], [place] [phone] PCP - General Family Practice 03/14/21 [place] [address] [address] PCP - General 03/15/20 03/13/21 [place] [address] [place] [address] Assigned PCP 09/19/14 02/23/22 Nela Sheth RN Personal Advocate & Liaison (PAL) Family Practice 10/13/19 03/14/20 Ella Matias, PA-C [address] [place] [address] Assigned Cancer Care Provider 01/01/20 03/18/21 Santi Heller MD 6363 [facility] 500 [place] [address] Assigned Surgical Provider 01/01/2003/01 Aashish Leone MD Assigned Heart and Vascular Provider 01/01/20 05/07/20 [place] [address] [facility] 300 [place], [place] [address] Assigned Musculoskeletal Provider 01/01/20 07/23/20 Miguel Culver PA-C 6405 [place], [place] [address] Assigned Heart and Vascular Provider 05/25/20 04/29/21 [place] [address] [place], [place] [address] Assigned PCP 05/05/22 10/19/22 documented as of this encounter
--- OUTSIDE RECORDS SUMMARY | 2023-11-15 08:02 | XMS_ITS | Encounter Summary ---
Author Organization [facility] Address [address] [place] [address]. [place] [address] Care Team Providers Care Procurement Professional Name Role Phone Wesley Dugan MD Primary Care Provider Wesley Dugan MD Unavailable [phone] Nela Sheth RN Unavailable Unavailable Ella Matias PA-C Unavailable Santi Heller MD Unavailable Aashish Leone MD Unavailable Unavail able Tato Mallory MD Unavailable Chirag Taylor MD Primary Care Provider + Miguel Culver PA-C Unavailable Wesley Dugan MD Unavailable [phone] Reason for Visit * Reason Comments Medication Refill Encounter Details Date Type Department Care Team (Late st Contact Info) Description [facility] [address] [place] [phone] Wesley Dugan [place] [address] [place] [address] Medication Refill Social History Tobacco Use Types Packs/Day Years Used Date Smoking Tobacco: Former Cigarettes 0 1958 - 2016 Smokeless Tobacco: Never Alcohol Use Standard Drinks/Week Comments Not Currently 0 (1 standard drink = 0.6 oz pur e alcohol) PHQ-2 Answer Date Recorded PHQ-2 Score 2 10/16/2019 Sex and Gender Information Value Date Recorded Sex Assigned at Male 03/30/2018 7:28 AM DIRECTOR BUSINESS INTELLIGENCE Gender Identity Male 03/30/2018 7:28 AM DIRECTOR BUSINESS INTELLIGENCE Sexual Orientation Straight 02/18/2018 9: 07 AM DIRECTOR BUSINESS INTELLIGENCE documented as of this encounter Miscellaneous Notes [...] documented as of this encounter Care Teams Procurement Professional Relationship Specialty Start [place] [address] [place] [address] PCP - General Family Practice 03/14/21 Chirag Taylor MD [address] [place] [address] PCP - General 03/15/20 03/13/21 [place] [address] [place] [address] Assigned PCP 09/19/14 02/23/22 Nela Sheth RN Personal Advocate & Liaison (PAL) Family Practice 10/13/19 03/14/20 Ella Matias PA-C 909 [place] [address] Assigned Cancer Care Provider 01/01/20 03/18/21 Santi Heller MD 6363 [facility] 500 [place] [address] Assigned Surgical Provider 01/01/2003/01 Aashish Leone MD Assigned Heart and Vascular Provider 01/01/20 05/07/20 [place] [address] [facility] 300 [place] [address] Assigned Musculoskeletal Provider 01/01/20 07/23/20 Miguel Culver PA-C 6405 [place] [address] Assigned Heart and Vascular Provider 05/25/20 04/29/21 [place] [address] [place] [address] Assigned PCP 05/05/22 10/19/22 documented as of this encounter
--- OUTSIDE RECORDS SUMMARY | 2023-11-15 08:02 | XMS_ITS | Encounter Summary ---
Author Organization [facility] Address [address] [place] [address] Care Team Providers Care Motel Manager Name Role Phone Wesley Dugan MD Primary Care Provider [phone] Laurence Steele RN Unavailable Wesley Dugan MD Unavailable [phone] Wesley Dugan MD Unavailable [phone] Nela Sheth RN Unavailable Unavailable Ella Matias PA-C Unavailable Santi Heller MD Unavailable Aashish Leone MD Unavailable Unavail able Tato Mallory MD Unavailable [phone] Chirag Taylor MD Primary Care Provider + Miguel Culver PA-C Unavailable Wesley Dugan MD Unavailable [phone] Encounter Details Date Type Department Care Team (Late st Contact Info) Description 01/30/2016 [facility] [address] [place] [address] Hans Schultz MD [address] [place] [address] Social History Tobacco Use Types Packs/Day Years Used Date Smoking Tobacco: Every Day Cigarettes 1 65.1 Started: 1957 Smokeless Tobacco: Never Comments:Trying to quit cut down to 1/2 pack daily Alcohol Use Standard Drinks/Week Comments Yes 0 (1 standard drink = 0.6 oz pur e alcohol) 1+ drink per day Sex and Gender Information Value Date Recorded Sex Assigned at Male 03/30/2018 7:28 AM MARKETING CONTENT COORDINATOR Gender Identity Male 03/30/2018 7:28 AM MARKETING CONTENT COORDINATOR Sexual Orientation Straight 02/18/2018 9: 07 AM MARKETING CONTENT COORDINATOR documented as of this encounter Plan of Treatment Not on file documented as of this encounter Visit Diagnoses Not on filedocumented in this encounter Additional Health Concerns Infection Onset Date Last Indicated Resolved Time Rule Out COVID-19 07/27/2019 07/27/2019 07/27/2019 10:15 PM CDT Assessment Noted Time PHQ-9 Depression Total Score: 13 11/22/ 016 7:18 AM CDT documented as of this encounter Care Teams Motel Manager Relationship Specialty [place] [address] [place] [address] PCP - General Family Practice 03/14/21 [place] [address] [place] [address] PCP - Assigned PCP 09/19/14 05/13/18 [place] [address] [address] PCP - General 03/15/20 03/13/21 Laurence Steele RN Clinic Throw Out Clerk Nurse 03/09/15 [place] [address] [place], [place] [address] Assigned PCP 09/19/14 02/23/22 Nela Sheth, RN Personal Advocate & Liaison (PAL) Family Practice 10/13/19 03/14/20 Ella Matias PA-C 909 [place], [place] [address] Assigned Cancer Care Provider 01/01/20 03/18/21 Santi Heller MD [address] [address] Assigned Surgical Provider 01/01/2003/01 Aashish Leone MD Assigned Heart and Vascular Provider 01/01/20 05/07/20 [place] [address] [facility] [address] [place] [address] Assigned Musculoskeletal Provider 01/01/20 07/23/20 Miguel Culver PA-C 6405 [place] [address] Assigned Heart and Vascular Provider 05/25/20 04/29/21 [place] [address] [place] [address] Assigned PCP 05/05/22 10/19/22 documented as of this encounter
--- OUTSIDE RECORDS SUMMARY | 2023-11-15 08:02 | XMS_ITS | Encounter Summary ---
Author Organization [facility] Address [address] [place] [address] Care Team Providers Care Content Engineer Name Role Phone Wesley Dugan MD Primary Care Provider [phone] Wesley Dugan MD Unavailable [phone] Nela Sheth RN Unavailable Unavailable Ella Matias PA-C Unavailable Santi Heller MD Unavailable [phone] Aashish Leone MD Unavailable Unavail able Tato Mallory MD Unavailable Chirag Taylor MD Primary Care Provider + Miguel Culver PA-C Unavailable Wesley Dugan MD Unavailable [phone] Encounter Details Date Type Department Care Team (Late st Contact Info) Description 07/16/[address] [place] [address] Duran Qureshi Social History Tobacco Use Types Packs/Day Years Used Date Smoking Tobacco: Former Cigarettes 0 1958 - 2016 Smokeless Tobacco: Never Alcohol Use Standard Drinks/Week Comments No 0 (1 standard drink = 0.6 oz pur e alcohol) PHQ-2 Answer Date Recorded PHQ-2 Score 4 03/18/2018 Sex and Gender Information Value Date Recorded Sex Assigned at Male 03/30/2018 7:28 AM PRODUCTION SAMPLER Gender Identity Male 03/30/2018 7:28 AM PRODUCTION SAMPLER Sexual Orientation Straight 02/18/2018 9: 07 AM PRODUCTION SAMPLER documented as of this encounter Plan of Treatment Not on file documented as of this encounter Visit Diagnoses Not on filedocumented in this encounter Additional Health Concerns Infection Onset Date Last Indicated Resolved Time Rule Out COVID-19 07/27/2019 07/27/2019 07/27/2019 10:15 PM CDT Assessment Noted Time PHQ-9 Depression Total Score: 12 019 11:34 AM CDT documented as of this encounter Care Teams Content Engineer Relationship Specialty [place] [address] [place] [address] PCP - General Family Practice 03/14/21 [place] [address] [address] PCP - General 03/15/20 03/13/21 [place] [address] [place] [address] Assigned PCP 09/19/14 02/23/22 Nela Sheth RN Personal Advocate & Liaison (PAL) Family Practice 10/13/19 03/14/20 Ella Matias, PALizzethC 9 [place] [address] Assigned Cancer Care Provider 01/01/20 03/18/21 Santi Heller MD [address] [facility] 500 [place] [address] Assigned Surgical Provider 01/01/2003/01 Aashish Leone MD Assigned Heart and Vascular Provider 01/01/20 05/07/20 [place] [address] [facility] 300 [place] [address] Assigned Musculoskeletal Provider 01/01/20 07/23/20 Miguel Culver PA-C 6405 [place] [address] Assigned Heart and Vascular Provider 05/25/20 04/29/21 [place] [address] [place] [address] Assigned PCP 05/05/22 10/19/22 documented as of this encounter
--- OUTSIDE RECORDS SUMMARY | 2023-11-15 08:02 | XMS_ITS | Encounter Summary ---
Author Organization [place] Address [address] [place] [address] Care Team Providers Care Education And Training Manager Name Role Phone Wesley Dugan MD Primary Care Provider Wesley Dugan MD Unavailable [phone] Ella Matias PA-C Unavailable Santi Heller MD Unavailable Tato Mallory MD Unavailable [phone] Chirag Taylor MD Primary Care Provider + Miguel Culver PA-C Unavailable Wesley Dugan MD Unavailable [phone] Encounter Details Date Type Department Care [...] Sex Assigned at Male 03/30/2018 7:28 AM REPORT SPECIALIST Gender Identity Male 03/30/2018 7:28 AM REPORT SPECIALIST Sexual Orientation Straight 02/18/2018 9: 07 AM REPORT SPECIALIST documented as of this encounter Plan of Treatment Not on file documented as of this encounter Visit Diagnoses Not on filedocumented in this encounter Additional Health Concerns Assessment Noted Time PHQ-9 Depression Total Score: 7 10/16/19 20 7:11 AM CDT documented as of this encounter Care Teams Education And Training Manager Relationship Specialty [place] [address] [place] [address] PCP - General Family Practice 03/14/21 [place] [address] [address] PCP - General 03/15/20 03/13/21 [place] [address] [place] [address] Assigned PCP 09/19/14 02/23/22 Ella Matias PA-C 909 [place], [place] [address] Assigned Cancer Care Provider 01/01/20 03/18/21 Santi Heller MD [address] [address] Assigned Surgical Provider 01/01/2003/01 [place] [address] [address] Assigned Musculoskeletal Provider 01/01/20 07/23/20 Miguel Culver PA-C 6405 [place] [address] Assigned Heart and Vascular Provider 05/25/20 04/29/21 [place] [address] [place] [address] Assigned PCP 05/05/22 10/19/22 documented as of this encounter
--- OUTSIDE RECORDS SUMMARY | 2023-11-15 08:02 | XMS_ITS | Encounter Summary ---
Author Organization [facility] Address [address] [place] [address]. [place] [address] Care Team Providers Care Rack Room Worker Name Role Phone Wesley Dugan MD Primary Care Provider Wesley Dugan MD Unavailable [phone] Nela Sheth RN Unavailable Unavailable Ella Matias PA-C Unavailable Santi Heller MD Unavailable [phone] Aashish Leone MD Unavailable Unavail able Tato Mallory MD Unavailable Chirag Taylor MD Primary Care Provider + Miguel Culver PA-C Unavailable Wesley Dugan MD Unavailable [phone] Reason for Visit * Reason Comments Medication Refill Encounter Details Date Type Department Care Team (Late st Contact Info) Description 03/10/2020 Refill [facility] [address] [place] [address] [place] Dug[place] [address] [place] [address] Medication Refill Social History Tobacco Use Types Packs/Day Years Used Date Smoking Tobacco: Former Cigarettes 0 1958 - 2016 Smokeless Tobacco: Never Alcohol Use Standard Drinks/Week Comments Not Currently 0 (1 standard drink = 0.6 oz pur e alcohol) PHQ-2 Answer Date Recorded PHQ-2 Score 2 10/16/2019 Sex and Gender Information Value Date Recorded Sex Assigned at Male 03/30/2018 7:28 AM DIRECTOR BIOINFORMATICS Gender Identity Male 03/30/2018 7:28 AM DIRECTOR BIOINFORMATICS Sexual Orientation Straight 02/18/2018 9: 07 AM DIRECTOR BIOINFORMATICS documented as of this encounter Miscellaneous Notes * Telephone Encounter - Nela Sheth RN - 03/15/2020 3:34 PM CST PCP changes to Dr. Lane Taylor @ [facility] in [place], [place]. Pt's future rx refills to be obtained from pt's PCP for insurance purposes. Nela Sheth, Registered Nurse, Patient Advocate [facility] CTOR BIOINFORMATICS * Telephone Encounter - Wesley Dugan MD - 03/14/2020 5:12 PM CST Due to insurance, changed to Sienna Taylor [place] Please change PCP Refills to new PCP Wesley Dugan MD CTOR BIOINFORMATICS * Telephone Encounter - Jazmin Rothman RN - 03/14/2020 8:07 AM CST Routing refill request to provider for review/approval because: Drug not active on patient's medication list Not on med list Jazmin Rothman RN, BSN Message handled by CLINIC NURSE. CTOR BIOINFORMATICS documented in this encounter Plan of Treatment Not on file documented as of this encounter Visit Diagnoses Not on filedocumented in this encounter Additional Health Concerns Assessment Noted Time PHQ-9 Depression Total Score: 7 10/16/19 20 7:11 AM CDT documented as of this encounter Care Teams Rack Room Worker Relationship Specialty [place] [address] [place] [address] PCP - General Family Practice 03/14/21 [place] [address] [address] PCP - General 03/15/20 03/13/21 [place] [address] [place] [address] Assigned PCP 09/19/14 02/23/22 Nela Sheth RN Personal Advocate & Liaison (PAL) Family Practice 10/13/19 03/14/20 Ella Matias PA-C [address] [place] [address] Assigned Cancer Care Provider 01/01/20 03/18/21 Santi Heller MD 6[address] [facility] [address] [address] Assigned Surgical Provider 01/01/2003/01 Aashish Leone MD Assigned Heart and Vascular Provider 01/01/20 05/07/20 [place] [address] [address] Assigned Musculoskeletal Provider 01/01/20 07/23/20 Miguel Culver PA-C [address] [address] [address] [place], [place] [address] Assigned Heart and Vascular Provider 05/25/20 04/29/21 [place] [address] [place] [address] Assigned PCP 05/05/22 10/19/22 documented as of this encounter
--- OUTSIDE RECORDS SUMMARY | 2023-11-15 08:02 | XMS_ITS | Encounter Summary ---
Author Organization [facility] Address [address] [place] [address]. [place] [address] Care Team Providers Care Computational Chemist Name Role Phone Wesley Dugan MD Primary Care Provider [phone] Laurence Steele RN Unavailable Wesley Dugan MD Unavailable [phone] Wesley Dugan MD Unavailable [phone] Nela Sheth RN Unavailable Unavailable Ella Matias PA-C Unavailable Santi Heller MD Unavailable Aashish Leone MD Unavailable Unavail able Tato Mallory MD Unavailable [phone] Chirag Taylor MD Primary Care Provider + Miguel Culver PA-C Unavailable Wesley Dugan MD Unavailable [phone] Reason for Visit * Reason Onset Date Comments Medication Question 03/23/2015 Probiotic Encounter Details Date Type Department Care Team (Late st Contact Info) Description 03/23/2015 MyC Medical Advice [facility] [address] [place] [phone] Wesley Dugan MD [address] [place] [address] Medication Question (Probiotic) Social History Tobacco [...] Assigned at Male 03/30/2018 7:28 AM DIRECTOR SMB SALES Gender Identity Male 03/30/2018 7:28 AM DIRECTOR SMB SALES Sexual Orientation Straight 02/18/2018 9: 07 AM DIRECTOR SMB SALES documented as of this encounter Miscellaneous Notes * Telephone Encounter - Wesley Dugan MD - 03/23/2015 4:46 PM CST culturelle is fine Still having diarrhea? Wesley Dugan CTOR SMB SALES * Telephone Encounter - Karo Saini RN - 03/23/2015 9:[address] Dugan-see [facility] message below. Please advise. Karo Saini RN CTOR SMB SALES documented in this encounter Plan of Treatment Not on file documented as of this encounter Visit Diagnoses Not on filedocumented in this encounter Additional Health Concerns Infection Onset Date Last Indicated Resolved Time Rule Out COVID-19 07/27/2019 07/27/2019 07/27/2019 10:15 PM CDT Assessment Noted Time PHQ-9 Depression Total Score: 15 015 7:16 AM CDT documented as of this encounter Care Teams Computational Chemist Relationship Specialty [place] [address] [place] [address] PCP - General Family Practice 03/14/21 [place] [address] [place], [place] [address] PCP - Assigned PCP 09/19/14 05/13/18 [place] [address] [address] PCP - General 03/15/20 03/13/21 Laurence Steele, JARON Clinic Studio Grip Nurse 03/09/15 [place] [address] [place], [place] [address] Assigned PCP 09/19/14 02/23/22 Nela Sheth RN Personal Advocate & Liaison (PAL) Family Practice 10/13/19 03/14/20 Ella Matias PA-C 9 [place], [place] [address] Assigned Cancer Care Provider 01/01/20 03/18/21 Santi Heller MD 6363 [facility] [address] [address] Assigned Surgical Provider 01/01/2003/01 Aashish Leone MD Assigned Heart and Vascular Provider 01/01/20 05/07/20 [place] [address] 7[address]807 Assigned Musculoskeletal Provider 01/01/20 07/23/20 Miguel Culver PA-C 6405 [facility] [place], [place] [address] Assigned Heart and Vascular Provider 05/25/20 04/29/21 [place] [address] [place] [address] Assigned PCP 05/05/22 10/19/22 documented as of this encounter
--- OUTSIDE RECORDS SUMMARY | 2023-11-15 08:02 | XMS_ITS | Encounter Summary ---
Author Organization [place] Address [facility] [place] [address] Care Team Providers Care Material Disposition Inspector Name Role Phone Wesley Dugan MD Primary Care Provider Wesley Dugan MD Unavailable [phone] Nela Sheth RN Unavailable Unavailable Ella Matias PA-C Unavailable Santi Heller MD Unavailable [phone] Aashish Leone MD Unavailable Unavail able Tato Mallory MD Unavailable Chirag Taylor MD Primary Care Provider + Miguel Culver PA-C Unavailable Wesley Dugan MD Unavailable [phone] Reason for Visit * Reason Onset Date Comments Call Back 10/12/2019 after 1pm call B ack- 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 Please call Butch at: [phone] Encounter Details Date Type Department Care Team (Late st Contact Info) Description 10/12/2019 Telephone [facility] [address] [place] [address] Santi Heller MD [address] [place] [address] Call Back (after 1pm call Back- 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 Please call Butch at: [phone]) Social History Tobacco Use Types Packs/Day Years Used Date Smoking Tobacco: Former Cigarettes 0 1958 - 2016 Smokeless Tobacco: Never Alcohol Use Standard Drinks/Week Comments Not Currently 0 (1 standard drink = 0.6 oz pur e alcohol) PHQ-2 Answer Date Recorded PHQ-2 Score 2 10/16/2019 Sex and Gender Information Value Date Recorded Sex Assigned at Male 03/30/2018 7:28 AM MANUAL TESTER Gender Identity Male 03/30/2018 7:28 AM MANUAL TESTER Sexual Orientation Straight 02/18/2018 9: 07 AM MANUAL TESTER COVID-19 Exposure Response Date Recorded In the last month, have you been in contact with someone who was confirmed or suspected to have Coronavirus / COVID-19? No / Unsure 09/16/2019 8:12 AM CDT documented as of this encounter Miscellaneous Notes * Telephone Encounter - Fide Garcia - 10/12/2019 10:38 AM CDT [facility] Call Center Phone Message May a detailed message be left on voicemail: no Reason for Call: Other: after 1pm call Back- 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 Please call Butch at: [phone] Action Taken: Message routed to: [facility] Clinical Pool Travel Screening: Not Applicable documented in this encounter Plan of Treatment Not on file documented as of this encounter Visit Diagnoses Not on filedocumented in this encounter Additional Health Concerns Assessment Noted Time PHQ-9 Depression Total Score: 8 08/15/19 20 7:03 AM CDT documented as of this encounter Care Teams Material Disposition Inspector Relationship Specialty [place] [address] [place] [address] PCP - General Family Practice 03/14/21 [place] [address] [address] PCP - General 03/15/20 03/13/21 [place] [address] [place] [address] Assigned PCP 09/19/14 02/23/22 Nela Sheth, JARON Personal Advocate & Liaison (PAL) Family Practice 10/13/19 03/14/20 Ella Matias PA-C [address] [place] [address] Assigned Cancer Care Provider 01/01/20 03/18/21 Santi Heller MD [address] [address] Assigned Surgical Provider 01/01/2003/01 Aashish Leone MD Assigned Heart and Vascular Provider 01/01/20 05/07/20 Tato Mallory MD [address] [place] [address] Assigned Musculoskeletal Provider 01/01/20 07/23/20 Miguel Culver PA-C 6405 [place] [address] Assigned Heart and Vascular Provider 05/25/20 04/29/21 [place] [address] [place] [address] Assigned PCP 05/05/22 10/19/22 documented as of this encounter
--- OUTSIDE RECORDS SUMMARY | 2023-11-15 08:02 | XMS_ITS | Encounter Summary ---
Author Organization [facility] Address [address] [place] [address]. [place] [address] Care Team Providers Care Cinder Snapper Name Role Phone Wesley Dugan MD Primary Care Provider Wesley Dugan MD Unavailable [phone] Nela Sheth RN Unavailable Unavailable Ella Matias PA-C Unavailable Santi Heller MD Unavailable Aashish Leone MD Unavailable Unavail able Tato Mallory MD Unavailable Chirag Taylro MD Primary Care Provider + Miguel Culver PA-C Unavailable [phone] Wesley Dugan MD Unavailable [phone] Reason for Visit * Reason Comments Medication Refill Encounter Details Date Type Department Care Team (Late st Contact Info) Description 02/21/2020 Refill [facility] [address] [place] [address] [place] [address] [place] [address] Medication Refill Social History Tobacco Use Types Packs/Day Years Used Date Smoking Tobacco: Former Cigarettes 0 1958 - 2016 Smokeless Tobacco: Never Alcohol Use Standard Drinks/Week Comments Not Currently 0 (1 standard drink = 0.6 oz pur e alcohol) PHQ-2 Answer Date Recorded PHQ-2 Score 2 10/16/2019 Sex and Gender Information Value Date Recorded Sex Assigned at Male 03/30/2018 7:28 AM MEDICAL LABORATORY TECHNICIANS Gender Identity Male 03/30/2018 7:28 AM MEDICAL LABORATORY TECHNICIANS Sexual Orientation Straight 02/18/2018 9: 07 AM MEDICAL LABORATORY TECHNICIANS documented as of this encounter Miscellaneous Notes * Telephone Encounter - Charlotte Castro RN - 02/23/2020 2:24 PM CST Medication refilled per [facility] protocol Charlotte Castro RN CAL LABORATORY TECHNICIANS documented in this encounter Plan of Treatment Not on file documented as of this encounter Visit Diagnoses Diagnosis Heartburn documented in this encounter Additional Health Concerns Assessment Noted Time PHQ-9 Depression Total Score: 7 10/16/19 20 7:11 AM CDT documented as of this encounter Care Teams Cinder Snapper Relationship Specialty [place] [address] [place] [address] PCP - General Family Practice 03/14/21 Chirag Taylor MD [address] [place] [address] PCP - General 03/15/20 03/13/21 [place] [address] [place] [address] Assigned PCP 09/19/14 02/23/22 Nela Sheth RN Personal Advocate & Liaison (PAL) Family Practice 10/13/19 03/14/20 Ella Matias, NIRC [address] [place] [address] 817385 Assigned Cancer Care Provider 01/01/20 03/18/21 Santi Heller MD 6363 [facility] 500 [place] [address] Assigned Surgical Provider 01/01/2003/01 Aashish Leone MD Assigned Heart and Vascular Provider 01/01/20 05/07/20 [place] [address] [facility] 300 [place], [place] [address] Assigned Musculoskeletal Provider 01/01/20 07/23/20 Miguel Culver PA-C 6405 [facility] [place] [address] Assigned Heart and Vascular Provider 05/25/20 04/29/21 [place] [address] [place] [address] Assigned PCP 05/05/22 10/19/22 documented as of this encounter
--- OUTSIDE RECORDS SUMMARY | 2023-11-15 08:02 | XMS_ITS | Encounter Summary ---
Author Organization [facility] [facility] Address [address] [place] [address]. [place] [address] Care Team Providers Care Plate Glass Installer Helper Name Role Phone Wesley Dugan MD Primary Care Provider Wesley Dugan MD Unavailable [phone] Nela Sheth RN Unavailable Unavailable Ella Matias PA-C Unavailable Santi Heller MD Unavailable Aashish Leone MD Unavailable Unavail able Tato Mallory MD Unavailable Chirag Taylor MD Primary Care Provider + Miguel Culver PA-C Unavailable Wesley uDgan MD Unavailable [phone] Reason for Visit * Reason Comments Medication Refill Oxycodone Encounter Details Date Type Department Care Team (Late st Contact Info) Description 06/17/2019 Refill [facility] [address] [place] [phone] [place] [address] [place] [address] Medication Refill (Oxycodone) Social History [...] Assigned at Male 03/30/2018 7:28 AM SUPERVISOR PRINTING AND STAMPING Gender Identity Male 03/30/2018 7:28 AM SUPERVISOR PRINTING AND STAMPING Sexual Orientation Straight 02/18/2018 9: 07 AM SUPERVISOR PRINTING AND STAMPING COVID-19 Exposure Response Date Recorded In the last month, have you been in contact with someone who was confirmed or suspected to have Coronavirus / COVID-19? Unable to assess 05/29/2019 7:44 AM CDT documented as of this encounter Miscellaneous Notes * Telephone Encounter - Karo Saini RN - 06/17/2019 10:36 AM CDT Oxycodone Last OV 05/29/19 telephone Last RF 05/21/19 #60 STRIPPER AND OPAQUER APPRENTICE updated. No concerns noted. Due 06/20/19. Not [...] Total Score: 5 04/14/19 20 7:02 AM SUPERVISOR PRINTING AND STAMPING documented as of this encounter Care Teams Plate Glass Installer Helper Relationship Specialty [place] [address] [place] [address] PCP - General Family Practice 03/14/21 [place] [address] [address] PCP - General 03/15/20 03/13/21 [place] [address] [place] [address] Assigned PCP 09/19/14 02/23/22 Nela Sheth, RN Personal Advocate & Liaison (PAL) Family Practice 10/13/19 03/14/20 Ella Matias PA-C 9 [place] [address] Assigned Cancer Care Provider 01/01/20 03/18/21 Santi Heller MD 6363 [facility] 500 [place] [address] Assigned Surgical Provider 01/01/2003/01 Aashish Leone MD Assigned Heart and Vascular Provider 01/01/20 05/07/20 [place] [address] [facility] 300 [place] [address] Assigned Musculoskeletal Provider 01/01/20 07/23/20 Miguel Culver PA-C 6405 [place] [address] Assigned Heart and Vascular Provider 05/25/20 04/29/21 [place] [address] [place], [place] [address] Assigned PCP 05/05/22 10/19/22 documented as of this encounter
--- OUTSIDE RECORDS SUMMARY | 2023-11-15 08:03 | XMS_ITS | Encounter Summary ---
Author Organization [place] Address [address] [place] [address] Care Team Providers Care Bioanalyst Name Role Phone [facility] Unavailable Lashonda Maravilla MD Primary Care Provide r Unavailable Wesley Dugan MD Primary Care Provider [phone] Laurence Steele RN Unavailable Wesley Dugan MD Unavailable [phone] Wesley Dugan MD Unavailable [phone] Nela Sheth RN Unavailable Unavailable Ella Matias PA-C Unavailable Santi Heller MD Unavailable Aashish Leone MD Unavailable Unavail able Tato Mlalory MD Unavailable [phone] Chirag Taylor MD Primary Care Provider + Miguel Culver PA-C Unavailable [phone] Wesley Dugan MD Unavailable [phone] Encounter Details Date Type Department Care Team (Late st Contact Info) Description 04/07/2013 Office Visit-[facility] [address] [place] [phone] Milagros Garrido MD [facility] [address] [place] [id number] Social History Tobacco Use Types Packs/Day Years Used Date Smoking Tobacco: Every Day Cigarettes 1 53 Smokeless Tobacco: Never Alcohol Use Standard Drinks/Week Comments Yes 0 (1 standard drink = 0.6 oz pur e alcohol) social 2 drinks/week Sex and Gender Information Value Date Recorded Sex Assigned at Male 03/30/2018 7:28 AM GLASS ETCHER Gender Identity Male 03/30/2018 7:28 AM GLASS ETCHER Sexual Orientation Straight 02/18/2018 9: 07 AM GLASS ETCHER documented as of this encounter Progress Notes * Milagros Garrido MD - 04/08/2013 8:34 AM CST Progress Note Created by: Milagros Garrido M.D. [id number] DATE: 04/07/2013 KANDY CANTRELL DATE OF : 1945 AGE: [age] years old Referring Physician: SARMAD GARDUNO Referring Clinic: [facility] CURRENT DIAGNOSES 1. - Hyperlipidemia, 272.4 2. [...] a six vessel bypass in 1996 in [place]. According to the patient, he had a stent repair of a AAA one year ago with repair of the arteries in his groin area. This was done at [facility]. Review of the available records suggests that he did have a right femoral endarterectomy with a pericardial patch angioplasty and infrarenal abdominal aortic aneurysm repair with an [id number] stent graft and a two piece graft [...] - lives with, daughter and lives in [place] year round; REVIEW OF SYSTEMS GENERAL weight [...] encouraged him to follow up with the manager strategic alliances to determine when he could restart that [...] doppler 1 Day 2. F/U with Any SPOON MAKER 7-14 days 3. Lexiscan Infusion 2 Days, able to convert to treadmill stress if pt able to exercise 4. Pulmonary [place] [place] 5. Pulmonary Function Test Schedule at [facility] Milagros Garrido M.D. documented in this encounter Plan of Treatment Not on file documented as of this encounter Visit Diagnoses Not on filedocumented in this encounter Additional Health Concerns Infection Onset Date Last Indicated Resolved Time Rule Out COVID-19 07/27/2019 07/27/2019 07/27/2019 10:15 PM CDT documented as of this encounter Care Teams Bioanalyst Relationship Specialty Start [place] [address] [place] [address] PCP - General Family Practice 03/02/13 12/21/14 [place] [address] [place] [address] PCP - General Family Practice 03/14/21 [place] [address] [place] [address] PCP - Assigned PCP 09/19/14 05/13/18 [place] [address] [address] PCP - General 03/15/20 03/13/21 [facility] [address] [place] [address] 02/10/13 03/08/15 Laurence Steele, JARON Clinic Automation Tester Nurse 03/09/15 [place] [address] [place] [address] Assigned PCP 09/19/14 02/23/22 Nela Sheth, RN Personal Advocate & Liaison (PAL) Family Practice 10/13/19 03/14/20 Ella Matias PA-C [address]09 [place] [address] Assigned Cancer Care Provider 01/01/20 03/18/21 Santi Heller MD [address] [facility] [address] [place] [address] Assigned Surgical Provider 01/01/2003/01 Aashish Leone MD Assigned Heart and Vascular Provider 01/01/20 05/07/20 [place] [address] [facility] [address] [place] [address] Assigned Musculoskeletal Provider 01/01/20 07/23/20 Miguel Culver PA-C [address] [facility] [place] [address] Assigned Heart and Vascular Provider 05/25/20 04/29/21 [place] [address] [place], [place] [id number] Assigned PCP 05/05/22 10/19/22 documented as of this encounter
--- OUTSIDE RECORDS SUMMARY | 2023-11-15 08:03 | XMS_ITS | Encounter Summary ---
Author Organization [place] Address [address] [place] [address]. [place] [address] Care Team Providers Care Spent Grain Dryer Name Role Phone [facility] Unavailable Lashonda Maravilla MD Primary Care Provide r Unavailable Wesley Dugan MD Primary Care Provider [phone] Laurence Steele RN Unavailable Wesley Dugan MD Unavailable [phone] Wesley Dugan MD Unavailable [phone] Nela Sheth RN Unavailable Unavailable Ella Matias PA-C Unavailable Santi Heller MD Unavailable [phone] Aashish Leone MD Unavailable Unavail able Tato Mlalory MD Unavailable [phone] Chirag Taylor MD Primary Care Provider + Miguel Culver PA-C Unavailable [phone] Wesley Dugan MD Unavailable [phone] Encounter Details Date Type Department Care Team (Late st Contact Info) Description 04/28/2013 Office Visit-[facility] [place] [address] [facility] [address] [place] [phone] Leopoldo Mallory MD [address] [facility] [address] [place] [address] Social History Tobacco Use Types Packs/Day Years Used Date Smoking Tobacco: Every Day Cigarettes 1 53 Smokeless Tobacco: Never Alcohol Use Standard Drinks/Week Comments Yes 0 (1 standard drink = 0.6 oz pur e alcohol) social 2 drinks/week Sex and Gender Information Value Date Recorded Sex Assigned at Male 03/30/2018 7:28 AM SOURCING INTERNSHIP Gender Identity Male 03/30/2018 7:28 AM SOURCING INTERNSHIP Sexual Orientation Straight 02/18/2018 9: 07 AM SOURCING INTERNSHIP documented as of this encounter Progress Notes * Leopoldo Mallory MD - 04/28/2013 10:17 AM CST Progress Note Created by: Leopoldo Mallory MD DATE: 04/23/2013 KANDY CANTRELL DATE OF : 1945 AGE: [age] years old Referring Physician: LEOPOLDO GARDUNO Referring Clinic: [facility] CURRENT DIAGNOSES 1. - Hyperlipidemia, 272.4 2. [...] He has had been treated previously at [facility]. I have reviewed his records. He [...] - lives with, daughter and lives in [place] year round; REVIEW OF SYSTEMS GENERAL increased [...] documented as of this encounter Care Teams Spent Grain Dryer Relationship Specialty [place] [address] [place] [address] PCP - General Family Practice 03/02/13 12/21/14 [place] [address] [place] [address] PCP - General Family Practice 03/14/21 [place] [address] [place] [address] PCP - Assigned PCP 09/19/14 05/13/18 [place] [address] [address] PCP - General 03/15/20 03/13/21 [facility] [address] [place] [address] 02/10/13 03/08/15 Laurence Steele, JARON Clinic Concrete Tester Nurse 03/09/15 [place]ug[place] [id number] [place] [address] Assigned PCP 09/19/14 02/23/22 Nela Sheth RN Personal Advocate & Liaison (PAL) Family Practice 10/13/19 03/14/20 Ella Matias, PA-C [address] [place] [address] Assigned Cancer Care Provider 01/01/20 03/18/21 Santi Heller MD [address] [place] [address] Assigned Surgical Provider 01/01/2003/01 Aashish Leone MD Assigned Heart and Vascular Provider 01/01/20 05/07/20 [place] [address] [facility] [address] [place], [place] [address] Assigned Musculoskeletal Provider 01/01/20 07/23/20 Miguel Culver PA-C [address] [place] [address] Assigned Heart and Vascular Provider 05/25/20 04/29/21 [place] [address] [place], [place] [id number] Assigned PCP 05/05/22 10/19/22 documented as of this encounter
--- OUTSIDE RECORDS SUMMARY | 2023-11-15 08:03 | XMS_ITS | Encounter Summary ---
Author Organization [place] Address [address] [place] [address] Care Team Providers Care Sales Service Supervisor Name Role Phone [facility] Unavailable Lashonda Maravilla MD Primary Care Provide r Unavailable Wesley Dugan MD Primary Care Provider [phone] Laurence Steele RN Unavailable [phone] Wesley Dugan MD Unavailable [phone] Wesley Dugan MD Unavailable [phone] Nela Sheth RN Unavailable Unavailable Ella Matias PA-C Unavailable Santi Heller MD Unavailable [phone] Aashish Leone MD Unavailable Unavail able Tato Mallory MD Unavailable [phone] Chirag Taylor MD Primary Care Provider + Miguel Culver PA-C Unavailable [phone] Wesley Dugan MD Unavailable [phone] Encounter Details Date Type Department Care Team (Late st Contact Info) Description 04/13/2013 [facility] [address] [phone] Lashonda Maravilla MD NO INFO AVAILABLE 07/12/2022 Social History Tobacco Use Types Packs/Day Years Used Date Smoking Tobacco: Every Day Cigarettes 1 53 Smokeless Tobacco: Never Alcohol Use Standard Drinks/Week Comments Yes 0 (1 standard drink = 0.6 oz pur e alcohol) social 2 drinks/week Sex and Gender Information Value Date Recorded Sex Assigned at Male 03/30/2018 7:28 AM 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 Gender Identity Male 03/30/2018 7:28 AM 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 Sexual Orientation Straight 02/18/2018 9: 07 AM 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 documented as of this encounter Plan of Treatment Not on file documented as of this encounter Visit Diagnoses Not on filedocumented in this encounter Additional Health Concerns Infection Onset Date Last Indicated Resolved Time Rule Out COVID-19 07/27/2019 07/27/2019 07/27/2019 10:15 PM CDT documented as of this encounter Care Teams Sales Service Supervisor Relationship Specialty Start [place] [address] [place] [address] PCP - General Family Practice 03/02/13 12/21/14 [place] [address] [place] [address] PCP - General Family Practice 03/14/21 [place] [address] [place] [address] PCP - Assigned PCP 09/19/14 05/13/18 [place] [address] [address] PCP - General 03/15/20 03/13/21 [facility] [address] [place] [address] 02/10/13 03/08/15 Laurence Steele RN Clinic Combat Rifle Crewmember Nurse 03/09/15 [place] [address] [place] [address] Assigned PCP 09/19/14 02/23/22 Nela Sheth, RN Personal Advocate & Liaison (PAL) Family Practice 10/13/19 03/14/20 Ella Matias PA-C 909 [place] [address] Assigned Cancer Care Provider 01/01/20 03/18/21 Santi Heller MD [address] [facility] 500 [place] [address] Assigned Surgical Provider 01/01/2003/01 Aashish Leone MD Assigned Heart and Vascular Provider 01/01/20 05/07/20 [place] [address] [facility] [address] [place] [address] Assigned Musculoskeletal Provider 01/01/20 07/23/20 Miguel Culver PA-C [address] [facility] [place] [address] Assigned Heart and Vascular Provider 05/25/20 04/29/21 [place] [address] [place] [address] Assigned PCP 05/05/22 10/19/22 documented as of this encounter
[2023-11-15 08:34] LABS: Creatinine* 0.7 mg/dL (0.5-1.5); Estimated Glomerular Filt Rate 95 ml/min
--- NOTE | 2023-11-15 09:00 | CRLHL7_ITS ---
For Patients: As a result of the 21st Century Cures Act, medical imaging exams and procedure reports are released immediately into your electronic medical record. You may view this report before your referring provider. If you have questions, please contact your health care provider. INDICATION: Abnormal weight loss. TECHNIQUE: CT chest, abdomen and pelvis acquired with 89 cc Isovue 370 IV contrast. Water oral contrast was utilized. COMPARISON: CT angiogram of the chest and CT scan of the abdomen and pelvis 02/04/2023. FINDINGS: CHEST: Lower neck and chest wall: Unremarkable thyroid. No chest wall mass or axillary lymphadenopathy. Bilateral gynecomastia, unchanged. Mediastinum and chelly: No mediastinal or hilar lymphadenopathy. Heart and vasculature: Status post CABG. Severe coronary artery calcification. No cardiomegaly. Mild atherosclerosis of the thoracic aorta without aneurysm. No central pulmonary artery filling defects. Lungs: Paraseptal and centrilobular emphysema. Diffuse bronchial wall thickening. Resolution of left lower lobe consolidation with minimal residual scar. Minimal linear atelectasis and/or scar in the lung bases. No pulmonary consolidation or mass. Pleura: No pleural effusion or pneumothorax. Bones: Old sternotomy. Anterior spinal fusion of the lower cervical spine. Degenerative spondylosis of the thoracic and upper lumbar spine. No acute fracture or suspicious bone lesion. ABDOMEN AND PELVIS: Limitations: Images are mildly degraded secondary to artifact from spinal instrumentation and left hip replacement. Liver: Normal in size and attenuation. No suspicious masses. Gallbladder and bile ducts: Status post cholecystectomy. Normal caliber common bile duct. Pancreas: Unremarkable. No mass or inflammation. Spleen: Normal in size. No masses. Adrenal glands: Normal in size. No nodules. Kidneys, ureters and urinary bladder: Too small to accurately characterize renal low-density lesions, unchanged. No renal stone or hydronephrosis. Symmetric renal enhancement. Unremarkable urinary bladder. GI tract: Unremarkable. Normal in caliber. No sign of mass or inflammation. No appendicitis. Vasculature: Infrarenal abdominal aortic aneurysm with abdominal bi-iliac endoluminal stent graft, unchanged. Lymph nodes: No lymphadenopathy. Peritoneum: Unremarkable. No sign of mass or infiltration. No free air or significant free fluid. Pelvis: Unremarkable. No pelvic mass. Abdominal wall: Unremarkable. No mass or bowel containing hernia. Bones: Posterior spinal fusion with pedicle screw and leola instrumentation from L3-L5 and left total hip arthroplasty, unchanged. 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 IMPRESSION: 1. Interval resolution of pulmonary emboli and left lower lobe consolidation since the previous exam. 2. Pulmonary emphysema and minimal linear atelectasis and/or scar. 3. Infrarenal abdominal aortic aneurysm and endoluminal stent graft, unchanged. 4. No acute abnormality identified. Please note that all CT scans at this facility use dose modulation, iterative reconstruction, and/or weight-based dosing when appropriate to reduce radiation dose to as low as reasonably achievable. Dictated by Leopoldo Pryor MD @ 11/15/2023 12:25:43 PM (Electronically Signed)
== END 2023-11-15 07:57 | disposition home or self-care (01) ==
LOC: CT 07:57
PROVIDERS: PCP Internal Medicine; Visit Provider Internal Medicine
DX: R63.4 Abnormal weight loss (principal); I26.99 Other pulmonary embolism without acute cor pulmonale; I71.40 Abdominal aortic aneurysm, without rupture, unspecified
CPT/HCPCS: 36415; 71260; 74177; 82565; Q9967

== ENCOUNTER 2024-01-02 08:31 | Outpatient (CLI) | payer OTHER, SELFPAY ==
--- OUTSIDE RECORDS SUMMARY | 2024-01-02 08:35 | XMS_ITS ---
Author Organization [facility] Address [address] [place] [address] Care Team Providers Care Crm Analyst Name Role Phone Unavailable Unavailable Unavailable Surgery Details Not on file Complications Check Surgery Details section. Procedure Estimated Blood Loss Check Surgery Details section. Procedure Findings Check Surgery Details section. Procedure Specimens Taken Check Surgery Details section.
--- OUTSIDE RECORDS SUMMARY | 2024-01-02 08:35 | XMS_ITS | Encounter Summary ---
Author Organization [facility] Address [address] [place] [address] Care Team Providers Care Char Filter Tank Tender Head Name Role Phone Unavailable Primary Care Provider Unavailabl e Encounter Details Date Type Department Care Team (Late st Contact Info) Description 12/13/2023 10:35 AM CDT Ancillary Procedure Department of General Surgery Social History Tobacco Use Types Packs/Day Years Used Date Smoking Tobacco: Former Cigarettes Q uit: 2017 Smokeless Tobacco: Never Alcohol Use Standard Drinks/Week Comments Not Currently 0 (1 standard drink = 0.6 oz pur e alcohol) [facility] Utilities Answer Date Recorded In the past [...] your living situation today? I have a [facility] place to live 10/02/2023 Sex and Gender Information Value Date Recorded Sex Assigned at Male 10/02/2023 12:12 PM CDT Legal Sex Male 10:21 AM HUMAN RESOURCE OFFICER Gender Identity Male 10/02/2023 12:12 PM CDT Sexual Orientation Straight 10/02/2023 12 :12 PM CDT documented as of this encounter Plan of Treatment Not on file documented as of this encounter Procedures Procedure Name Priority Date/Time Associated Diagnosis Comments SURGERY IMAGE EXAM Routine 12/13/2023 10 :35 AM CDT documented in this encounter Results * Surgery Image Exam-Surgery Image Exam (12/13/2023 10:35 AM CDT) 12/13/2023 10:3 1 AM CDT Narrative [facility] - 12/13/2023 11:35 AM CDT This order has been created and auto-finalized to support the import of images acquired without order. The clinical documentation to support these images can be found on the encounter that produced images. us Provider Not In System IMG NON RAD IMAGING PROCE DURES Final Result [facility] NA documented in this encounter Visit Diagnoses Not on filedocumented in this encounter
--- OUTSIDE RECORDS SUMMARY | 2024-01-02 08:35 | XMS_ITS | Encounter Summary ---
Author Organization [facility] Address [address] [place] [address] Care Team Providers Care Fractionating Still Operator Name Role Phone Unavailable Primary Care Provider Unavailabl e Reason for Visit * Auth/Cert (Routine) Specialty Diagnoses / Procedures Referred By Contac t Referred To Contact Diagnoses Bronchitis Chronic (HCC) Chronic Obstructive Pulmonary Disease (HCC) Bronchitis Chronic (HCC) [J42] Chronic Obstructive Pulmonary Disease (HCC) [J44.9] Procedures [place] BRONCH DX W CELL WASH FLUOR BRONCHOSCOPY FLEXIBLE Hans Felix M.D. 200 [place] [address] Phone: tel: fax: Referral ID Status Reason Start Date Expiration Date Visits Re quested Visits Authorized [id number] 1 1 Encounter Details Date Type Department Care Team (Late st Contact Info) Description 12/13/2023 9:07 AM CDT - 12/13/2023 10:37 AM CDT Surgery [facility] OR [address] [place] [phone] Hans Felix M.D. [address] [place] [phone] BRONCHOSCOPY FLEXIBLE [facility] Social History Tobacco Use Types Packs/Day Years Used Date Smoking Tobacco: Former Cigarettes Q uit: 2017 Smokeless Tobacco: Never Alcohol Use Standard Drinks/Week Comments Not Currently 0 (1 standard drink = 0.6 oz pur e alcohol) [facility] Utilities Answer Date Recorded In the past 12 months has [employer], or [employer] threatened to shut off services in your [...] living situation today? I have a [facility] place to live 10/02/2023 Sex and Gender Information Value Date Recorded Sex Assigned at Male 10/02/2023 12:12 PM CDT Legal Sex Male 10:21 AM TELEGRAPH EQUIPMENT MAINTAINER Gender Identity Male 10/02/2023 12:12 PM CDT Sexual Orientation Straight 10/02/2023 12 :12 PM CDT documented as of this encounter Last Filed Vital Signs Vital Sign Reading Time Taken Comments Blood Pressure 113/84 12/13/2023 8:20 AM CDT Pulse 126 12/13/2023 7:51 AM CDT Temperature 36.6 ??C (97.9 ??F) 12/13/2023 7:24 AM CD T Respiratory Rate 21 12/13/2023 8:20 AM CDT Oxygen Saturation 95% 12/13/2023 7:24 AM CDT Inhaled Oxygen Concentration - - Weight 79.3 kg (174 lb 13.2 oz) 12/13/2023 7:24 AM CDT Height 177.8 cm (5' 10) 12/13/2023 7:24 AM CDT Body Mass Index 25.08 12/13/2023 7:24 AM CDT documented in this encounter Discharge Instructions * Attachments The following attachments cannot be sent through Care Everywhere. * Bronchoscopy: Looking at Your Airways (Puerto Rican) * Instructions After Sedation or Anesthesia for Adults (Puerto Rican) documented in this encounter Medications at Time of Discharge acetaminophen (TylenoL) 500 mg tablet Take 1,000 [...] Take 1 tablet by mouth daily. 08/20/2013 budesonide-formo teroL (Symbicort) 80-4.5 mcg/actuation inhaler Inhale 2 puffs [...] nostril(s) 2 (two) times a day. 09/03/2023 ipratropium-albu teroL (DuoNeb) 0.5-2.5 mg/3 mL nebulizer solution Inhale [...] mg total) by mouth daily. 10 tablet 12/11/2023 roflumilast (Daliresp) 500 mcg tablet Take 500 mcg by mouth daily. 09/16/2023 rosuvastatin (Crestor) 40 mg tablet Take 40 mg by mouth daily. 02/27/2019 sennosides-docus ate sodium (Senokot-S) 8.6-50 mg per tablet Take 2 tablets by mouth as needed for constipation. 02/04/2023 Spiriva with HandiHaler 18 mcg inhalation capsule Inhale 1 capsule daily. 11/26/2011 documented as of this encounter OR Notes * Op Rowena - Hans Felix M.D. - 12/13/2023 11:00 AM CDT Procedure: Flexible bronchoscopy Bronchial rheoplasty of the left lung Pre-op Diagnosis Bronchitis Chronic (HCC) Chronic Obstructive Pulmonary Disease (HCC) Post-op Diagnosis Bronchitis Chronic (HCC) Chronic Obstructive Pulmonary Disease (HCC) Findings As expected Complications None Operative Note Narrative After informed consent and procedure pause the patient was intubated with a size eight endotrachealtube by the anesthesia service. The right and left tracheobronchial trees were inspected using a therapeutic bronchoscope. We foundviscous mucus in both lungs but no purulence. Secretions were suctioned free. We then used the bronchial rheoplasty device and treated all the visible segmental airways in the left lower lobe, left upper lobe, and left mainstem bronchus for a total of 67 activations. I then suctioned out more secretions. He tolerated procedure well with no complication and was extubated and sent to recovery in good condition. Hans Felix M.D. documented in this encounter Plan of Treatment Not on file documented as of this encounter Procedures Procedure Name Priority Date/Time Associated Diagnosis Comments BRONCHOSCOPY FLEXIBLE 12/13/2023 10:15 AM CDT Bronchitis Chronic (HCC) Chronic Obstructive Pulmonary Disease (HCC) documented in this encounter Visit Diagnoses Diagnosis Heart Failure NOS Ischemic Heart Disease NOS Chronic Obstructive Pulmonary Disease Without Exacerbation (HCC) Peripheral Vascular Disease (HCC) Cardiac Arrhythmia NOS Gastroesophageal Reflux Disease Without Esophagitis Other Specified Disorders Of Thyroid Embolus Pulmonary Personal History Bronchitis Chronic (HCC) Chronic Obstructive Pulmonary Disease (HCC) documented in this encounter Administered Medications Inactive Administered Medications - up to 3 most recent administrations Medication Order MAR Action Action Date Dose Rate Site amiodarone tablet 200 mg (Pacerone) 200 mg, oral, Once, On Sat12/13/23 at 0800, For 1 dose, Pre-Op Given 12/13/2023 8:25 AM CDT 200 mg famotidine injection 20 mg (Pepcid) 20 mg, intravenous, Once, On Sat12/13/23 at 0715, For 1 dose, Pre-Op, 30 minutes pre-op, Drug Monitoring Program: Pharmacist to adjust medication dosing based on indication and drug clearance factors. Given 12/13/2023 8:25 AM CDT 20 mg metoprolol tablet 12.5 mg (Lopressor) 12.5 mg, oral, Once, On Sat12/13/23 at 0800, For 1 dose, Pre-Op Given 12/13/2023 7:51 AM CDT 12.5 mg documented in this encounter Active and Recently Administered Medications Times are shown in CDT. Scheduled Medication Order 12/11/2023 12/12/2023 12/13/2023 amiodarone tablet 200 mg (Pacerone) (COMPLETED) 200 mg, oral, Once, On Sat12/13/23 at 0800, For 1 dose, Pre-Op 0825 (Given - Provid er: Nela Doss R.N.) famotidine injection 20 mg (Pepcid) (COMPLETED) 20 mg, intravenous, Once, On Sat12/13/23 at 0715, For 1 dose, Pre-Op, 30 minutes pre-op, Drug Monitoring Program: Pharmacist to adjust medication dosing based on indication and drug clearance factors. 0825 (Given - Provid er: Nela Doss R.N.) metoprolol tablet 12.5 mg (Lopressor) (COMPLETED) 12.5 mg, oral, Once, On Sat12/13/23 at 0800, For 1 dose, Pre-Op 0751 (Given - Provid er: Hailee Desai R.N.) sodium chloride 0.9 % injection 3 mL 3 mL, intravenous, Every 12 hours scheduled, First dose on Sat12/13/23 at 0900, Pre-Op, Peripheral Intravenous Catheter and Rapid Infusion Catheter, when no infusion to maintain patency 0900 (Due) Continuous Medication Order 12/11/2023 12/12/2023 12/13/2023 Lactated Ringer's 50 mL/hr, intravenous, Continuous, Starting on Sat12/13/23 at 1145, PACU & Post-Op 1145 (Due) PRN Medication Order 12/11/2023 12/12/2023 12/13/2023 fentaNYL injection 25 mcg (Sublimaze) 25 mcg, intravenous, Every 2 min PRN, moderate pain or score 4-6 of 10, severe pain or score 7-10 of 10, Starting on Sat12/13/23 at 1200, PACU (only), Up to maximum total dose of 200 mcg hydrALAZINE injection 5 mg (Apresoline) 5 mg, intravenous, Once as needed, high blood pressure, per Provider instructions, Starting on Sat12/13/23 at 1200, For 1 dose, PACU (only), Follow institution's IV administration guidelines ondansetron (PF) injection 4 mg (Zofran) 4 mg, intravenous, Once as needed, nausea, vomiting, Starting on Sat12/13/23 at 0656, For 1 dose, Pre-Op sodium chloride 0.9 % injection 10 mL 10 mL, intravenous, As needed, line care, Starting on Sat12/13/23 at 0656, Pre-Op, Peripheral Intravenous Catheter and Rapid Infusion Catheter, prior to blood sampling, post blood transfusion or post blood sampling sodium chloride 0.9 % injection 3 mL 3 mL, intravenous, As needed, line care, Starting on Sat12/13/23 at 0656, Pre-Op, Prior to and following infusion and between multiple consecutive infusions: sodium chloride 0.9 % injection documented in this encounter
--- OUTSIDE RECORDS SUMMARY | 2024-01-02 08:35 | XMS_ITS | Encounter Summary ---
Author Organization [facility] Address [address] [place] [address] Care Team Providers Care Skiver Machine Operator Name Role Phone Unavailable Primary Care Provider Unavailabl e Encounter Details Date Type Department Care Team (Late st Contact Info) Description 11/12/2023 Orders Only Division of Pulmonary Medicine in [place], [place] [address] [place] [address] Gildardo Canales Bronchitis Chronic (HCC) (Primary Dx); Chronic Obstructive Pulmonary Disease (HCC) Social History Tobacco Use Types Packs/Day Years Used Date Smoking Tobacco: Former Cigarettes Q uit: 2017 Smokeless Tobacco: Never Alcohol Use Standard Drinks/Week Comments Not Currently 0 (1 standard drink = 0.6 oz pur e alcohol) [facility] Utilities Answer Date Recorded In the past 12 months has th e electric, gas, oil, or water [employer] threatened to shut off services in your [...] your living situation today? 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
--- OUTSIDE RECORDS SUMMARY | 2024-01-02 08:35 | XMS_ITS | Encounter Summary ---
Author Organization [facility] Address [address] [place] [address] Care Team Providers Care Director Of Online Education Name Role Phone Unavailable Primary Care Provider Unavailabl e Reason for Visit * Auth/Cert (Routine) Specialty Diagnoses / Procedures Referred By Contac t Referred To Contact Diagnoses Bronchitis Chronic (HCC) Chronic Obstructive Pulmonary Disease (HCC) Bronchitis Chronic (HCC) [J42] Chronic Obstructive Pulmonary Disease (HCC) [J44.9] Procedures [place] BRONCH DX W CELL WASH FLUOR BRONCHOSCOPY FLEXIBLE Hans Felix M.D. [address] [place] [address] Phone: tel: fax: Referral ID Status Reason Start Date Expiration Date Visits Re quested Visits Authorized [id number] 1 1 Encounter Details Date Type Department Care Team (Latest Contact Info) Description 12/13/2023 5:47 AM CDT - 12/13/2023 12:42 PM CDT Hospital Encounter [facility] MAIN OR [address] [place] [address] Hans Felix M.D. [address] [place] [phone] Discharge Disposition: Home or Self Care Social History Tobacco Use Types Packs/Day Years Used Date Smoking Tobacco: Former Cigarettes Q uit: 2017 Smokeless Tobacco: Never Alcohol Use Standard Drinks/Week Comments Not Currently 0 (1 standard drink = 0.6 oz pur e alcohol) [facility] Utilities Answer Date Recorded In the past 12 months has [employer], gas, oil, or water company threatened to [...] your living situation today? 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 Gender Identity Male 10/02/2023 12:12 PM CDT Sexual Orientation Straight 10/02/2023 12 :12 PM CDT documented as of this encounter Last Filed Vital Signs Vital Sign Reading Time Taken Comments Blood Pressure 103/55 12/13/2023 12:30 PM CDT Pulse 67 12/13/2023 12:30 PM CDT Temperature 36.4 ??C (97.5 ??F) 12/13/2023 1 2:30 PM CDT Respiratory Rate 18 12/13/2023 12:3 0 PM CDT Oxygen Saturation 94% 12/13/2023 12: 30 PM CDT Inhaled Oxygen Concentration - - Weight 79.3 kg (174 lb 13.2 oz) 12/13/2023 7:24 AM CDT Height 177.8 cm (5' 10) 12/13/2023 7:24 AM CDT Body Mass Index 25.08 12/13/2023 7:24 AM CDT documented in this encounter Discharge Instructions * Attachments The following attachments cannot be sent through Care Everywhere. * Bronchoscopy: Looking at Your Airways ([place]) * Instructions After Sedation or Anesthesia for Adults ([place]) documented in this encounter Medications at Time [...] Disorders Of Thyroid Embolus Pulmonary Personal History documented in this encounter Administered Medications Inactive [...] Pre-Op 0825 (Given - Provid er: Nela Doss, R.N.) famotidine injection 20 mg (Pepcid) (COMPLETED) [...]
--- OUTSIDE RECORDS SUMMARY | 2024-01-02 08:35 | XMS_ITS | Encounter Summary ---
Author Organization [facility] Address [address] [place] [address] Care Team Providers Care Psychiatrist Name Role Phone Unavailable Primary Care Provider Unavailabl e Encounter Details Date Type Department Care Team (Late st Contact Info) Description 12/11/2023 Orders Only Division of Pulmonary Medicine in [place], [place] [address] [place] [address] Brooke Sanabria M.D. [address] [place] [address] Social History Tobacco Use Types Packs/Day Years Used Date Smoking Tobacco: Former Cigarettes Q uit: 2017 Smokeless Tobacco: Never Alcohol Use Standard Drinks/Week Comments Not Currently 0 (1 standard drink = 0.6 oz pur e alcohol) [facility] Utilities Answer Date Recorded In the past 12 months has [facility] [place], gas, oil, or water [employer] threatened to shut off services in your [...] your living situation today? 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
--- OUTSIDE RECORDS SUMMARY | 2024-01-02 08:35 | XMS_ITS | Referral Summary ---
Author Organization [facility] Address [address] [place] [address] Care Team Providers Care Wheel Inspector Name Role Phone Unavailable Primary Care Provider Unavailabl e Source Comments Patient records contain information from all sites at [facility]. For routine questions regarding patient records, call [phone] during business hours, M-F 8:00 AM - 5:00 PM Central Time. Record requests for emergency care only can be directed to [phone] at any time.[facility] Encounters * This document contains information received from the source organization and may not represent a complete record from that organization. Date Type Department Care Team Description 12/13/2023 10:35 AM CDT Ancillary Procedure Department of General Surgery 12/13/2023 9:07 AM CDT - 12/13/2023 10:37 AM CDT Surgery [facility] [address] [place] [phone] Hans Felix M.D. BRONCHOSCOPY FLEXIBLE [facility] 12/13/2023 10:46 AM CDT Anesthesia Event [facility] [address] [place] [phone] Adilia Bahena APRN, CRNA, DNAP Heather Portillo APRN, CRNA, DNAP 12/13/2023 5:47 AM CDT - 12/13/2023 12:42 PM CDT Hospital Encounter [facility] [place] [phone] Hans Felix M.D. Discharge Disposition: Home or Self Care 12/11/2023 Orders Only Division of Pulmonary Medicine in [place], [place] [address] [place] [phone] Brooke Sanabria M.D. 11/12/2023 Orders Only Division of Pulmonary Medicine in [place], [place] [address] [place] [phone] Gildardo Canales Bronchitis Chronic (HCC) (Primary Dx); Chronic Obstructive Pulmonary Disease (HCC) 11/08/2023 Orders Only Division of Pulmonary Medicine in [place], [place] [address] [place] [phone] Astrid Sullivan 11/08/2023 7:15 AM CDT - 11/08/2023 8:36 AM CDT Surgery [facility] [address] [place] [phone] Harsha Roberto M.D. 1st case, BRONCHOSCOPY FLEXIBLE, [facility]. 11/08/2023 7:46 AM CDT Anesthesia Event [facility] OR [address] [place] [phone] Fox Oswald M.D. [facility] CenterBrooke gimenez M.D. 11/08/2023 5:53 AM CDT - 11/08/2023 9:45 AM CDT Hospital Encounter [facility] [address] [place] [phone] Harsha Rboerto M.D. Bronchitis Chronic (HCC); Chronic Obstructive Pulmonary Disease (HCC) Discharge Disposition: Home or Self Care 11/05/2023 Orders Only Division of Pulmonary Medicine in [place], [place] [address] [place] [phone] Gildardo Canales 11/05/2023 Orders Only Division of Pulmonary Medicine in [place], [place] [address] [place] [phone] Brooke Sanabria M.D. 10/23/2023 Orders Only Division of Pulmonary Medicine in [place], [place] [address] [place] [phone] Gildardo Canales Bronchitis Chronic (HCC) (Primary Dx); Chronic Obstructive Pulmonary Disease (HCC) 10/22/2023 Orders Only Division of Pulmonary Medicine in [place], [place] [address] [place] [address] Gildardo Canales 10/08/2023 11:07 AM CDT - 10/08/2023 11:19 AM CDT Hospital Encounter Department of Radiology, [facility], in [place], [place] [address] [place] [phone] Brooke Sanabria M.D. Bronchitis Chronic (HCC); Chronic Obstructive Pulmonary Disease (HCC) Discharge Disposition: Home or Self Care 10/08/2023 11:20 AM CDT - 10/08/2023 11:59 PM CDT Hospital Encounter Department of Laboratory Medicine and Pathology, [facility] in [place], [place] [address] [place] [phone] Fox Alvarez M.D. Bronchitis Chronic (HCC); Chronic Obstructive Pulmonary Disease (HCC) Discharge Disposition: Home or Self Care 10/08/2023 9:30 AM CDT Comprehensive Visit Division of Pulmonary Medicine in [place], [place] [address] [place] [phone] Brooke Sanabria M.D. Chronic Obstructive Pulmonary Disease (HCC) (Primary Dx); Bronchitis Chronic (HCC); Flutter Atrial (HCC); Embolus Pulmonary Personal History from Last 3 Months Allergies No known active allergies Medications * This document contains information received from the source organization and may not represent a complete record from that organization. acetaminophen (TylenoL) 500 mg tablet Take 1,000 mg by mouth every 6 (six) hours as needed. 3 Active albuterol 90 mcg/actuation inhaler Inhale 2 puffs every 4 (four) hours as needed for wheezing or shortness of breath. 0 Active allopurinoL (Zyloprim) 100 mg tablet Take 100 mg by mouth daily. 4 Active aspirin [address] tablet Take 1 tablet by mouth daily. 4 Active budesonide-for moteroL (Symbicort) 80-4.5 mcg/actuation inhaler Inhale 2 puffs 2 (two) times a day. 4 Active clopidogreL (Plavix) 75 mg tablet Take 75 mg by mouth daily. 3 Active fluticasone propionate (Flonase) 50 mcg/actuation nasal spray Administer 2 sprays into nostril(s) 2 (two) times a day. 4 Active ipratropium-al buteroL (DuoNeb) 0.5-2.5 mg/3 mL nebulizer solution Inhale 3 mL 4 (four) times a day as needed. 4 Active melatonin 5 mg capsule Take 10 mg by mouth at bedtime as needed. 2 Active methIMAzole (Tapazole) 5 mg tablet Take 5 mg by mouth daily. 4 Active Narcan 4 mg/actuation nasal spray Administer 4 mg into one nostril as needed. 0 Active nitroglycerin (Nitrostat) 0.[address] 0.4 mg under the tongue as needed for chest pain. 0 Active omeprazole (PriLOSEC) [address] capsule Take 1 capsule by mouth daily. 0 Active oxyCODONE (Roxicodone) 5 mg immediate release tablet Take 5 mg by mouth as needed for pain. 0 Active roflumilast (Daliresp) 500 mcg tablet Take 500 mcg by mouth daily. 4 Active famotidine (Pepcid) 20 mg tablet Take 1 tablet by mouth daily. 3 Active rosuvastatin (Crestor) 40 mg tablet Take 40 mg by mouth daily. 9 Active Spiriva with HandiHaler 18 mcg inhalation capsule Inhale 1 capsule daily. 2 Active cyanocobalamin (Vitamin B-12) 1,000 mcg tablet Take 1 tablet by mouth daily. 0 Active cholecalcifero l, vitamin D3, 25 mcg (1,000 Unit) tablet Take 25 mcg by mouth daily. 0 Active amiodarone (Pacerone) 200 mg tablet Take 200 mg by mouth 2 (two) times a day. 4 Active carvediloL (Coreg) 12.5 mg tablet Take 12.5 mg by mouth 2 (two) times a day with meals. 3 Active apixaban (Eliquis) 5 mg tablet Take 1 tablet by mouth daily. 3 Active losartan (Cozaar) 25 mg tablet Take 12.5 mg by mouth daily. 3 Active sennosides-doc usate sodium (Senokot-S) 8.6-50 mg per tablet Take 2 tablets by mouth as needed for constipation. 3 Active fexofenadine (Joanna) 180 mg tablet Take 180 mg by mouth daily. 2 Active ferrous sulfate 325 mg (65 mg iron) DR tablet Take 65 mg of iron by mouth daily. Active diphenhydrAMIN E (BenadryL) 25 mg capsule Take 25 mg by mouth as needed for allergies. Active ferrous sulfate 325 mg (65 mg iron) tablet Take 325 mg by mouth daily. Active predniSONE (Deltasone) 20 mg tablet Take 2 tablets (40 mg total) by mouth daily. 10 tablet 4 Active predniSONE (Deltasone) 20 mg tablet Take 2 tablets (40 mg total) by mouth daily. 10 tablet 4 12/11/19 24 Discontinu ed(Reorder ) Active Problems Problem Noted Date Diagnosed Date Heart Failure NOS 12/13/2023 Ischemic Heart Disease NOS 12/13/2023 Chronic Obstructive Pulmonary Disease Without Ex acerbation 12/13/2023 Peripheral Vascular Disease 12/13/2023 Cardiac Arrhythmia NOS 12/13/2023 Gastroesophageal Reflux Disease Without Esophagi tis 12/13/2023 Other Specified Disorders Of Thyroid 12/13/2023 Embolus Pulmonary Personal History 12/13/2023 Social History Tobacco Use Types Packs/Day Years Used Date Smoking Tobacco: Former Cigarettes Q uit: 2017 Smokeless Tobacco: Never Tobacco Cessation:Counseling Given: Not Answered Alcohol Use Standard Drinks/Week Comments Not Currently 0 (1 standard drink = 0.6 oz pur e alcohol) [facility] Utilities Answer Date Recorded In the past 12 months has e [employer], gas, oil, or water [employer] threatened to shut off services in your [...] PM CDT 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 Gender Identity Male 10/02/2023 12:12 PM CDT [...] Mass Index 25.08 12/13/2023 7:24 AM CDT Plan of Treatment Not on file Medical Devices Implanted Type Area Livestock Dealer Device Identifier Shelf Expiration Date Model / [...] Diagnosis Comments LDA ANE ENDOTRACHEAL AIRWAY Routine 12/13/2023 10:54 AM CDT SURGERY IMAGE EXAM Routine 12/13/2023 10:35 AM CDT BRONCHOSCOPY FLEXIBLE 12/13/2023 10:15 AM CDT Bronchitis Chronic (HCC) Chronic Obstructive Pulmonary Disease (HCC) ADULT OXYGEN THERAPY Routine 11/08/2023 8:55 AM CDT BACTERIAL CULTURE, AEROBIC + SUSC, RESP Routine 11/08/2023 8:14 AM CDT MYCOBACTERIAL CULTURE, V Routine 11/08/2023 8:14 AM CDT Bronchitis Chronic (HCC) Chronic Obstructive Pulmonary Disease (HCC) FUNGAL SMEAR Routine 11/08/2023 8:14 AM CDT [...] (HCC) from Last 3 Months Results * LDA ANE ENDOTRACHEAL AIRWAY (12/13/2023 10:54 AM CDT) Narrative Heather Portillo APRN, PEMA, DNAP - 12/13/2023 10:54 AM CDT Heather Portillo APRN, CRNA, DNAP ? 12/13/2023 11:01 AM Airway Date/Time: 12/13/2023 10:54 AM Performed by: Liza Ortiz RTarunNTarun, CCRN Authorized by: Heather Portillo APRN NUCLEAR REACTOR TECHNICIAN, DNAP ?? Patient location during procedure: OR / Procedure Area PROCEDURE DETAILS: Mask difficulty assessment: easy mask Final airway type: video laryngoscope Laryngeal Manipulation: no ?? Final best view of glottic structures - Cormack/Lehane Score: grade 1 ETT location: oral VL device: glide scope Descanso scope blade size: 4 Tube size: 8 ETT distance at teeth/gum: 21 Oral tube type: standard ETT Cuffed: yes [...] outcome: successful ?? Notable Events: no complications Heather Chandni Portillo CIGARETTE MAKER, NUCLEAR REACTOR TECHNICIAN, DNAP ANESTHESIA ORDE JACOBY Final Result * Surgery Image Exam-Surgery Image Exam (12/13/2023 10:35 AM CDT) 12/13/2023 10:3 1 AM CDT Narrative IIMS - 12/13/2023 11:35 AM CDT This order has been created and auto-finalized to support the import of images acquired without order. The clinical documentation to support these images can be found on the encounter that produced images. Provider Not In System IMG NON RAD IMAGING PROCE DURES Final Result IINY NA * Bacterial Culture, Aerobic + Susceptibility, Respiratory (11/08/2023 8:14 AM CDT) Bacterial Culture, Aerobic, Resp Upper respiratory/or al microbiota 11/10/2023 9:15 AM CDT DTL Bronchial Washing 11/08/2023 8:14 AM CDT 11/08/2023 9:55 AM CDT Comment:Specimen Source Site : Wash Harsha Roberto M.D. LAB MICROBIOLOGY - GENERAL OR DERABLES Final Result [facility] [address] [place] [address], [facility] [place] [address] [place] [address] * Mycobacterial Culture (11/08/2023 8:14 AM CDT) Mycobacterial Culture No growth after 42 days of incubation . 12/20/2023 1:01 PM CDT DTL Wash (Bronchus) 11/08/2023 8 :14 AM CDT us Harsha Roberto M.D. LAB MICROBIOLOGY - GENERAL OR DERABLES Final Result [facility] [address] [place] [address], [facility] [address] [place] [address] * Fungal Smear (11/08/2023 8:14 AM CDT) Fungal Smear Negative. 11/08/2023 3:02 PM CDT DTL Wash (Bronchus) 11/08/2023 8 :14 AM CDT us Harsha Roberto M.D. LAB MICROBIOLOGY - GENERAL OR DERABLES Final Result Performing Organization Address City/[facility] Co de Phone Number [facility] [address] [place] [address], [facility] [address] [place] [address] * Acid Fast Smear for Mycobacterium (11/08/2023 8:14 AM CDT) Acid Fast Smear For Mycobacterium Negative. 11/08/2023 6:22 PM CDT DTL Wash (Bronchus) 11/08/2023 8 :14 AM CDT us Harsha Roberto M.D. LAB MICROBIOLOGY - GENERAL OR DERABLES Final Result Performing Organization Address City/[facility]/ZIP Co de Phone Number [facility] [address] [place] [address], [facility] [address] [place] [address] * Gram Stain (11/08/2023 8:14 AM CDT) Gram Stain Upper respiratory/ora l microbiota White blood cells, Few Epithelial cells, Rare 11/08/2023 12:38 PM CDT DTL Wash (Bronchus) 11/08/2023 8 :14 AM CDT Harsha Roberto M.D. LAB MICROBIOLOGY - GENERAL OR DERABLES Final Result Performing Organization Address [facility] Co de Phone Number [facility] [address] [place] [address], [facility] [address] [place] [address] * (ABNORMAL) Fungal Culture, Routine (11/08/2023 8:14 AM CDT) Fungal Culture, Routine Mixed Fungal Casi(A) 12/02/2023 12:09 PM CDT DTL Fungal Culture, Routine PENICILLIUM sp Few (A) 12/02/2023 12:09 PM CDT DTL Comment: Susceptibility testing is not routinely recommended for this organism. Clinical correlation required. Fungal Culture, Routine ALTERNARIA sp Few (A) 12/02/2023 12:09 PM CDT DTL Comment: Susceptibility testing is not indicated for all molds. Not all molds are clinically significant. If the ordering clinician feels that the culture result is clinically significant, infectious disease consultation is required to order mold susceptibility testing. Wash (Bronchus) 11/08/2023 8 :14 AM CDT Harsha Roberto M.D. LAB MICROBIOLOGY - GENERAL OR DERABLES Final Result Performing Organization Address [facility] de Phone Number [facility] [address] [place] [address], [facility] [address] [place] [address] * LDA ANE ENDOTRACHEAL AIRWAY (11/08/2023 7:51 [...] ETT location: oral VL device: glide scope Descanso scope blade size: 4 Tube size: 8.5 [...] Events: no complications Fox Oswald M.D. ANESTHESIA ORDERABLES F inal Result * ECG 12 Lead (11/08/2023 6:55 AM CDT) Only the most recent of2 resultswithin the time period is included. Ventricular Rate ECG/Min 88 BPM MUSE QRSD Interval 102 ms MUSE QT Interval 402 ms MUSE QTC Interval 486 ms MUSE P [place] 77 degrees MUSE R [place] 62 degrees MUSE T Wave [place] 68 degrees MUSE 11/08/2023 6:55 AM CDT [...] change was found Reviewed by ALEK Weston us Marifer Coleman APRN, CRNA, D.N.P. ECG ORDERABLES Final Result MUSE NA * Nicotine and Metabolites (10/08/2023 11:33 AM CDT) [facility] Nicotine <3.0 <3.0 ng/mL 10/09/2023 10:09 AM CDT [facility] Cotinine <3.0 <3.0 ng/mL 10/09/2023 10:09 AM CDT [facility] Comment: ----ADDITIONAL INFORMATION---- This test was developed and its performance characteristics determined by [facility] in a manner consistent with CLIA requirements. This test has not been cleared or approved by the U.S. Food and Drug Administration. Blood (Blood, Venous) 10/08/2023 11:33 AM CDT 10/09/2023 7:30 AM CDT us Fox Alvarez M.D. LAB BLOOD ADD-ON Final Resu lt [facility] [address] [place] [address] [facility] [address] [place] [address] [place] [address] * DX Chest AP or PA and [...] POchanges cervical spine. Brooke Mulligan M.D. [employer] DIAGNOSTIC DAE GING PROCEDURES Final Result * Pulmonary Function Tests (10/08/2023 7:31 AM CDT) PostFVC 3.44 L 10/08/2023 1:58 PM CDT [facility] PostFEV1 1.34 L 10/08/2023 1:58 PM CDT [facility] FEV1/FVC POST 38.95 % 10/08/2023 1:58 PM CDT [facility] FEF 25-75 % POST 0.32 L/s 10/08/2023 1:58 PM CDT [facility] PEF POST 4.11 L/s 10/08/2023 1:58 PM CDT [facility] PIF POST 4.66 L/s 10/08/2023 1:58 PM CDT [facility] FEF 50 % FIF 50 POST 7.13 % 10/08/2023 1:58 PM CDT [facility] FET POST 15.22 sec 10/08/2023 1:58 PM CDT [facility] DLCO SINGLE BREATH POST 9.13 ml/(min*mm Hg) 10/08/2023 1:58 PM CDT [facility] VA SINGLE BREATH POST 6.40 L 10/08/2023 1:58 PM CDT [facility] TLC POST 9.37 L 10/08/2023 1:58 PM CDT [facility] RV 5.64 L 10/08/2023 1:58 PM CDT [facility] RV % TLC POST 60.17 % 10/08/2023 1:58 PM CDT [facility] FVC 3.04 L 10/08/2023 1:58 PM CDT [facility] FEV1 1.09 L 10/08/2023 1:58 PM CDT [facility] FEV1/FVC 35.80 % 10/08/2023 1:58 PM CDT [facility] KPF75-75% 0.24 L/s 10/08/2023 1:58 PM CDT [facility] PEF PRE 4.38 L/s 10/08/2023 1:58 PM CDT [facility] PIF PRE 4.29 L/s 10/08/2023 1:58 PM CDT [facility] FEF 50 % FIF 50 PRE 6.33 % 10/08/2023 1:58 PM CDT [facility] FET PRE 15.54 sec 10/08/2023 1:58 PM CDT [facility] SUBSTANCE POST Albuterol 10/08/2023 1:58 PM CDT [facility] 10/08/2023 7:31 AM CDT Impressions [facility] - 10/08/2023 1:58 PM CDT Abnormal. [...] Exercise not performed due to saftey concerns. us Fox Alvarez M.D. PFT ORDERABLES Final Resul t [facility] NA from Last 3 Months Insurance [employer]
--- OUTSIDE RECORDS SUMMARY | 2024-01-02 08:35 | XMS_ITS | Encounter Summary ---
Author Organization [facility] Address [address] [place] [address] Care Team Providers Care Ambulatory Nurse Name Role Phone Unavailable Primary Care Provider Unavailabl e Reason for Visit * Auth/Cert (Routine) Specialty Diagnoses / Procedures Referred By Contmine t Referred To Contact Diagnoses Bronchitis Chronic (HCC) Chronic Obstructive Pulmonary Disease (HCC) Bronchitis Chronic (HCC) [J42] Chronic Obstructive Pulmonary Disease (HCC) [J44.9] Procedures MD BRONCH DX W CELL WASH FLUOR BRONCHOSCOPY FLEXIBLE Hans Felix M.D. [address] [place] [phone] Phone: tel: fax: Referral ID Status Reason Start Date Expiration Date Visits Re quested Visits Authorized [id number] 1 1 Encounter Details Date Type Department Care Team (Late st Contact Info) Description 12/13/2023 10:46 AM CDT Anesthesia Event RST ROMB MAIN OR [address] [place] [phone] Adilia Bahena APRN, CRNA, DNAP [address] [place] [phone] Heather Portillo APRN, CRNA, DNAP [address] [place] [phone] Anesthesia Record Procedure Summary Procedure Name Responsible Anesthesiologist Anesthesia Start Time Anesthesia Stop Time BRONCHOSCOPY FLEXIBLE Rheoplast Adilia Bahena APRN, CRNA, DNAP 12/13/23 1046 12/13/23 1153 Events Date Time Event Comment 12/13/2023 1046 An Start Machine/Equipme nt Checked Infection Precautions Followed Procedure/Site Verified NPO Status Verified Supine Standard ASA Monitors Applied 1050 An Induction 1054 An Intubation 1054 Turnover to Proceduralist 1100 Proc Start 1128 Proc Fin 1133 Turnover to ANE Staff 1140 Airway Removal Criteria Met 1140 Extubation/Airway Removed 1144 an stop data 1153 An End I completed my handoff to [...] Meds Name Total fentanyl injection 50 mcg/mL 100 mcg lidocaine 2% (mg) injection 80 mg rocuronium 10 mg/mL injection 50 mg phenylephrine 100 mcg/mL injection 100 m cg ondansetron 4 mg/2 mL injection 4 mg sugammadex 100 mg/mL injection 200 mg propofol 10 mg/mL infusion 327.11 mg propofol 10 mg/mL injection 120 mg phenylephrine 20 mg/250 mL infusion 2.04 mg phenylephrine bolus from bag 600 mcg dexAMETHasone (Decadron) injection 4 mg/ mL 10 mg esmoloL (Brevibloc) injection 100 mg/10 mL 30 mg Lactated Ringers Free Drip 700 mL * Agents No agents on file. * Blood No blood administrations on file. Lines, Drains, and Airways Type Details Placement Removal Peripheral IV Placement Date: 10/11 ; Placement Time: 0635; Catheter Size: 18 G; Orientation: Anterior, Left, Lower; Location: Forearm; Site Prep: Chlorhexidine (Preferred); Insertion Attempts: 1 11/08/23 0635 by Verito Garcia Peripheral IV Placement Date: 07/02; Placement Time: 0717; Catheter Size: 20 G; Orientation: Right; Location: Antecubital; Site Prep: Chlorhexidine (Preferred); Technique: Anatomical landmarks; Inserted by: NICHOLE; Insertion Attempts: 1; Removal Date: 12/13/23; Removal Time: 1231; Removal Reason: Patient discharged 12/13/23 0717 by Nicholas Butt 12/13/23 1231 by Cady Mckeon, RTarunNTarun ETT Placement Date: 07/02; Placement Time: 1054 (created via procedure documentation); Mask Ventilation: Easy mask; Technique: Video laryngoscopy; Type: Standard ETT; Single Lumen Tube Size: 8 mm; Cuffed: Yes; Location: Oral; Grade View: Grade 1; Insertion Attempts: 1; Placement Verification: Bilateral breath sounds, Positive ETCO2, Symmetrical chest wall movement; Removal Date: 12/13/23; Removal Time: 1140 12/13/23 1054 by Liza Ortiz R.N., CCRN 12/13/23 1140 by Heather Portillo PROTOTYPE SPECIAL BUILD, MARINE 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 Gender Identity Male 10/02/2023 12:12 PM CDT Sexual Orientation Straight 10/02/2023 12 :12 PM CDT documented as of this encounter OR Notes * Anesthesia Postprocedure Evaluation - Adilia Bahena APRN, CRNA, DNAP - 12/13/2023 11:53 AM CDT Patient: Butch Nieves Procedure Summary Date: 12/13/23 Room / Location: [place] [address] / [facility] in [place], [place] Anesthesia Start: 1046 Anesthesia Stop: 1153 Procedure: BRONCHOSCOPY FLEXIBLE Rheoplast Diagnosis: Bronchitis Chronic (HCC) Chronic Obstructive Pulmonary Disease (HCC) (Please Schedule 1st case if possibe; Bronchitis Chronic (HCC) [J42]) (Chronic Obstructive Pulmonary Disease (HCC) [J44.9]) Providers: Hans Felix M.D. Responsible Provider: Adilia Bahena APRN, CRNA, DNAP Anesthesia Type: general ASA Status: 3 Anesthesia Type: general Last vitals Vitals Value Taken Time BP 127/56 12/13/23 1148 Temp Pulse 63 12/13/23 1152 Resp 17 12/13/23 1152 SpO2 97 % 12/13/23 1152 Vitals shown include unfiled device data. Please reference Vitals flowsheet for most recent vital signs. Anesthesia Post Evaluation Patient Disposition: general care unit Cardiovascular status: hemodynamics (HR & BP) acceptable Respiratory status: patent airway with spontaneous effort Temperature: normothermic Oxygen requirements: room air Level of consciousness: awake Pain score: pain adequately controlled and/or at baseline Post Op nausea/vomiting: none Hydration status: euvolemic Notable Events No notable events documented. * Anesthesia Procedure Notes - KwHeather baugh APRN, CRNA, DNAP - 12/13/2023 10:59 AM CDTAssociated Order(s): Airway Airway Date/Time: 12/13/2023 10:54 AM Performed by: Liza Ortiz R.N., CCRN Authorized by: Heather Portillo APRN, CRNA, DNAP Patient location during procedure: OR / Procedure Area PROCEDURE DETAILS: Mask difficulty assessment: easy mask Final airway type: video laryngoscope Laryngeal Manipulation: no Final best view of glottic structures - Cormack/Lehane Score: grade 1 ETT location: oral VL device: glide scope Norton scope blade size: 4 Tube size: 8 [...] no complications * Anesthesia Preprocedure Evaluation - Nuha Caceres M.D. - 12/13/2023 7:18 AM CDT Preprocedure Anesthesia & H&P Assessment Procedure Summary Date/Time: 12/13/23906 Procedure: BRONCHOSCOPY FLEXIBLE Rheoplast Diagnosis: Bronchitis Chronic (HCC) [J42] Chronic Obstructive Pulmonary Disease (HCC) [J44.9] Pre-op diagnosis: Please Schedule 1st case if possibe; Bronchitis Chronic (HCC) [J42] Chronic Obstructive Pulmonary Disease (HCC) [J44.9] Location: [place] [address] / [facility] in [place], [place] Providers: Hans Felix M.D. Pertinent components of the patient's history including current problem list, medical history, surgical history, family history, social history, medications and allergies were reviewed. Present illness and pre-op diagnosis were confirmed. The planned surgery / procedure was verified with the patient / legal guardian. The patient's general health condition remains unchanged RELEVANT COMORBID CONDITIONS ANESTHESIA (within normal limits) CV 1996 CABG sequential DAE graft to the first and second diagonal and distal LAD. He also had a ADRIENNE to the right coronary artery and a saphenous vein graft to the OM ECHO Echo contrast was administered to enhance visualization of all left ventricular segments. 2. Normal LV size, normal wall thickness, low normal global systolic function with an estimated EF of 50 - 55%. 3. Anterior septum is abnormal. 4. Right ventricular is suboptimally visualized but grossly cavity size is normal (RV basal dimension 3.8 cm), global systolic RV function is grossly moderately reduced (TAPSE 1.0). 5. The aortic sinus is normal for age/sex/bsa with a maximal diameter of 4.0 cm. 6. The ascending aorta is dilated with a maximal diameter of 4.2 cm. 7. The aortic valve is trileaflet and sclerotic, no stenosis and no regurgitation. 8. IVC geometry compatible with an intermediate estimated RA pressure (8 mmHg). (+) Cardiac Arrhythmia NOS (+) Embolus Pulmonary Personal History (+) Heart Failure NOS (+) Ischemic Heart Disease NOS (+) Peripheral Vascular Disease (HCC) (AAA) RESP (+) Chronic Obstructive Pulmonary Disease Without Exacerbation (HCC) ENDO (+) Other Specified Disorders Of Thyroid (Grave's disease) GI (+) Gastroesophageal Reflux Disease Without Esophagitis OBJECTIVE PHYSICAL EXAMINATION Airway (HEENT) Mallampati: II TM Distance: >3 FB Neck ROM: Full Mouth Opening: >3 cm Cardiovascular Rhythm: Irregular Rate: Abnormal Cardiovascular Assessment: cardiovascular normal Functional Capacity: >4 METS Pulmonary Pulmonary Assessment: Diminished and wheezing General / Constitutional Constitutional Assessment: Normal Neurological Neurologic Assessment: alert and alert and oriented x 3 Dental Dental Assessment: upper dentures and lower dentures ASSESSMENT / PLAN ANESTHESIA PLAN ASA: 3 Anesthesia Plan: general Patient seen and allergies reviewed, anesthesia plan and risks discussed directly with patient /legal guardian or through an official court interpreter. The use of blood products not discussed Approval to Proceed: approved for anesthesia documented in this encounter Plan of Treatment Not on file documented as of this encounter Procedures Procedure Name Priority Date/Time Associated Diagnosis Comments LDA ANE ENDOTRACHEAL AIRWAY Routine 12/13/2023 10:54 AM CDT documented in this encounter Results * LDA ANE ENDOTRACHEAL AIRWAY (12/13/2023 10:54 AM CDT) Narrative Heather Portillo APRN, CRNA, DNAP - 12/13/2023 10:54 AM CDT Heather Portillo APRN, CRNA, DNAP ? 12/13/2023 11:01 AM Airway Date/Time: 12/13/2023 10:54 AM Performed by: Liza Ortiz R.N., CCRN Authorized by: Heather Portillo APRN, CRNA, DNAP ?? Patient location during procedure: OR / Procedure Area PROCEDURE DETAILS: Mask difficulty assessment: easy mask Final airway type: video laryngoscope Laryngeal Manipulation: no ?? Final best view of glottic structures - Cormack/Lehane Score: grade 1 ETT location: oral VL device: glide scope Norton scope blade size: 4 Tube size: 8 [...] outcome: successful ?? Notable Events: no complications Result [facility] Heather Portillo APRN, CRNA, DNAP ANESTHESIA ORDLuis DOZIER Final Result documented in this encounter Visit Diagnoses Not on filedocumented in this encounter Administered Medications Inactive Administered Medications - up to 3 most recent administrations Medication Order MAR Action Action Date Dose Rate Site dexAMETHasone injection (Decadron) intravenous, As needed, Starting on Sat12/13/23 at 1058, Anesthesia Intra-op Given 12/13/2023 10:58 AM CDT 10 mg esmolol injection (Brevibloc) intravenous, As needed, Starting on Sat12/13/23 at 1110, Anesthesia Intra-op Given 12/13/2023 11:21 AM CDT 10 mg Given 12/13/2023 11:10 AM CDT 20 mg fentaNYL injection (Sublimaze) intravenous, As needed, Starting on Sat12/13/23 at 1050, Anesthesia Intra-op Given 12/13/2023 10:55 AM CDT 50 mcg Given 12/13/2023 10:50 AM CDT 50 mcg Lactated Ringer's intravenous, Continuous Infusion: Per Instructions PRN, Starting on Sat12/13/23 at 1048, Anesthesia Intra-op New Bag 12/13/2023 11:28 AM CDT New Bag 12/13/2023 10:48 AM CDT lidocaine (PF) (cardiac) injection intravenous, As needed, Starting on Sat12/13/23 at 1050, Anesthesia Intra-op Given 12/13/2023 10:50 AM CDT 80 mg ondansetron (PF) injection (Zofran) intravenous, As needed, Starting on Sat12/13/23 at 1127, Anesthesia Intra-op Given 12/13/2023 11:27 AM CDT 4 mg phenylephrine 80 mcg/mL in NaCl 0.9% 250 mL infusion intravenous, Continuous Infusion: Per Instructions PRN, Starting on Sat12/13/23 at 1051, Anesthesia Intra-op Rate/Dose Change 12/13/2023 11:14 AM CDT 1 mcg/kg/min 59.475 mL/hr Rate/Dose Change 12/13/2023 11:10 AM CDT 0.5 mcg/kg/min 29 .737 mL/hr Rate/Dose Change 12/13/2023 11:04 AM CDT 0.3 mcg/kg/min 17 .842 mL/hr phenylephrine bolus from bag (Onofre-Synephrine) intravenous, As needed, Starting on Sat12/13/23 at 1109, Anesthesia Intra-op Given 12/13/2023 11:14 AM CDT 200 mc g Given 12/13/2023 11:11 AM CDT 200 mcg Given 12/13/2023 11:09 AM CDT 200 mcg phenylephrine injection intravenous, As needed, Starting on Sat12/13/23 at 1052, Anesthesia Intra-op Given 12/13/2023 10:52 AM CDT 100 mcg propofol 10 mg/mL infusion (Diprivan) intravenous, Continuous Infusion: Per Instructions PRN, Starting on Sat12/13/23 at 1051, Anesthesia Intra-op Rate/Dose Change 12/13/2023 11:12 AM CDT 100 mcg/kg/min 47.58 mL/hr New Bag 12/13/2023 10:51 AM CDT 125 mcg/kg/min 59.475 m L/hr propofoL injection (Diprivan) intravenous, As needed, Starting on Sat12/13/23 at 1052, Anesthesia Intra-op Given 12/13/2023 10:52 AM CDT 120 mg rocuronium injection (Zemuron) intravenous, As needed, Starting on Sat12/13/23 at 1052, Anesthesia Intra-op Given 12/13/2023 10:52 AM CDT 50 mg sugammadex injection (Bridion) intravenous, As needed, Starting on Sat12/13/23 at 1127, Anesthesia Intra-op Given 12/13/2023 11:27 AM CDT 200 mg documented in this encounter
--- OUTSIDE RECORDS SUMMARY | 2024-01-02 08:35 | XMS_ITS | Encounter Summary ---
Author Organization [facility] Address [address] [place] [address] Care Team Providers Care Health Data Analyst Name Role Phone Unavailable Primary Care Provider Unavailabl e Reason for Visit * Auth/Cert (Routine) Specialty Diagnoses / Procedures Referred By Contac t Referred To Contact Diagnoses Bronchitis Chronic (HCC) Chronic Obstructive Pulmonary Disease (HCC) Bronchitis Chronic (HCC) [J42] Chronic Obstructive Pulmonary Disease (HCC) [J44.9] Procedures ND BRONCH DX W CELL WASH FLUOR BRONCHOSCOPY FLEXIBLE Harsha Roberto M.D. 200 [place] [address] Phone: tel: fax: Referral ID Status Reason Start Date Expiration Date Visits Re quested Visits Authorized [id number] 1 1 Encounter Details Date Type Department Care Team (Late st Contact Info) Description 11/08/2023 7:15 AM CDT - 11/08/2023 8:36 AM CDT Surgery RST ROMB MAIN OR [address] [place] [phone] Harsha Roberto M.D. [address] [place] [phone] 1st case, BRONCHOSCOPY FLEXIBLE, Rheoplast. Social History Tobacco Use Types Packs/Day Years Used Date Smoking Tobacco: Former Cigarettes Q uit: 2017 Smokeless Tobacco: Never Tobacco Cessation:Counseling Given: Not Answered Alcohol Use Standard Drinks/Week Comments Not Currently 0 (1 standard drink = 0.6 oz pur e alcohol) [facility] Utilities Answer Date Recorded In the past 12 months has th e electric, gas, oil, or water [employer] threatened to shut off services in your [...] your living situation today? 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 * Bronchoscopy: Looking at Your Airways (Setswana) documented in this encounter Medications at Time [...] inhalation capsule Inhale 1 capsule daily. 11/26/2011 predniSONE (Deltasone) 20 mg tablet Take 2 tablets (40 mg total) by mouth daily. 10 tablet 11/05/2023 documented as of this encounter OR Notes * Op Rowena - Harsha Roberto M.D. - 11/08/2023 7:56 [...] OR DERABLES Final Result Performing Organization Address City/[facility]/ZIP Co de Phone Number [facility] 200 [place] [address], [facility] 200 [place] [address] * Mycobacterial Culture (11/08/2023 8:14 AM CDT) Pathologist [facility] Mycobacterial Culture No growth after 42 days of incubation . 12/20/2023 1:01 PM CDT DTL Wash (Bronchus) 11/08/2023 8 :14 AM CDT Harsha Roberto M.D. LAB MICROBIOLOGY - GENERAL OR DERABLES Final Result Performing Organization Address City/[facility]/ZIP Co de Phone Number [facility] [address] [place] [address], [facility] 200 [place] [address] * Fungal Smear (11/08/2023 8:14 AM CDT) Fungal Smear Negative. 11/08/2023 3:02 PM CDT DTL Wash (Bronchus) 11/08/2023 8 :14 AM CDT us Harsha Roberto M.D. LAB MICROBIOLOGY - GENERAL OR DERABLES Final Result Performing Organization Address [facility]/ZIP Co de Phone Number [facility] [address] [place] [address], [facility] [address] [place] [address] * Acid Fast Smear for Mycobacterium (11/08/2023 8:14 AM CDT) Acid Fast Smear For Mycobacterium Negative. 11/08/2023 6:22 PM CDT DTL Wash (Bronchus) 11/08/2023 8 :14 AM CDT us Harsha Roberto M.D. LAB MICROBIOLOGY - GENERAL OR DERABLES Final Result Performing Organization Address [facility] Co de Phone Number [facility] [address] [place] [address], [facility] [address] [place] [address] * Gram Stain (11/08/2023 8:14 AM CDT) Gram Stain Upper respiratory/ora l microbiota White blood cells, Few Epithelial cells, Rare 11/08/2023 12:38 PM CDT DTL Wash (Bronchus) 11/08/2023 8 :14 AM CDT us Harsha Roberto M.D. LAB MICROBIOLOGY - GENERAL OR DERABLES Final Result Performing Organization Address City/[facility] Co de Phone Number [facility] [address] [place], [place] [phone] [place] [address] [address] [place] [address] * (ABNORMAL) Fungal Culture, Routine (11/08/2023 8:14 [...] MICROBIOLOGY - GENERAL OR DERABLES Final Result [address] [address], [facility] [address] [place] [address] * ECG 12 Lead (11/08/2023 6:55 AM CDT) Ventricular Rate ECG/Min 88 BPM MUSE QRSD Interval 102 ms MUSE QT Interval 402 ms MUSE QTC Interval 486 ms MUSE P [place] 77 degrees MUSE R [place] 62 degrees MUSE T Wave [place] 68 degrees MUSE 11/08/2023 6:55 AM CDT [...] D.N.P. ECG ORDERABLES Final Result MUSE NA documented in this encounter Visit [...]
--- OUTSIDE RECORDS SUMMARY | 2024-01-02 08:35 | XMS_ITS | Encounter Summary ---
Author Organization [facility] Address [address] [place] [address] Care Team Providers Care Financial Services Specialist Name Role Phone Unavailable Primary Care Provider Unavailabl e Encounter Details Date Type Department Care Team (Late st Contact Info) Description 11/08/2023 Orders Only Division of Pulmonary Medicine in [place], [place] [address] [place] [phone] Astrid Sullivan Social History Tobacco Use Types Packs/Day Years Used Date Smoking Tobacco: Former Cigarettes Q uit: 2017 Smokeless Tobacco: Never Alcohol Use Standard Drinks/Week Comments Not Currently 0 (1 standard drink = 0.6 oz pur e alcohol) [facility] Utilities Answer Date Recorded In the [...] your living situation today? 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
--- OUTSIDE RECORDS SUMMARY | 2024-01-02 08:35 | XMS_ITS | Clinical Summary ---
Author Organization [facility] Address [address] [place] [address] Care Team Providers Care Psychiatrist Name Role Phone Unavailable Primary Care Provider Unavailabl e Source Comments Patient records contain information from all sites at [facility]. For routine questions regarding patient records, call [phone] during business hours, M-F 8:00 AM - 5:00 PM Central Time. Record requests for emergency care only can be directed to [phone] at any time.[facility] Allergies No known active allergies Medications * [...] Thyroid 12/13/2023 Embolus Pulmonary Personal History 12/13/2023 Encounters * This document contains information received from the source organization and may not represent a complete record from that organization. Date Type Department Care Team Description 12/13/2023 10:46 AM CDT Anesthesia Event [facility] OR [address] [place] [phone] Adilia Bahena, VICE PRESIDENT LENDING, CAN DOFFER, DNAP Heather Portillo, VICE PRESIDENT LENDING, CAN DOFFER, DNAP 12/13/2023 10:35 AM CDT Ancillary Procedure Department of General Surgery 12/13/2023 9:07 AM CDT - 12/13/2023 10:37 AM CDT Surgery [facility] OR [address] [place] [phone] Hans Felix M.D. BRONCHOSCOPY FLEXIBLE Rheoplast 12/13/2023 5:47 AM CDT - 12/13/2023 12:42 PM CDT Hospital Encounter [facility] [address] [place] [phone] Hans Felix M.D. Discharge Disposition: Home or Self Care 12/11/2023 Orders Only Division of Pulmonary Medicine in [place], [place] [address] [place] [phone] Brooke Sanabria M.D. 11/12/2023 Orders Only Division of Pulmonary Medicine in [place], [place] [address] [place] [phone] Gildardo Canales Bronchitis Chronic (HCC) (Primary Dx); Chronic Obstructive Pulmonary Disease (HCC) 11/08/2023 7:46 AM CDT Anesthesia Event [facility] MA[facility] OR [address] [place] [phone] Fox Oswald M.D. Manento, Megan N, M.D. 11/08/2023 7:15 AM CDT - 11/08/2023 8:36 AM CDT Surgery [facility] OR [address] [place] [phone] Harsha Roberto M.D. 1st case, BRONCHOSCOPY FLEXIBLE, Rheoplast. 11/08/2023 5:53 AM CDT - 11/08/2023 9:45 AM CDT Hospital Encounter [facility] OR [address] [place] [phone] Harsha Roberto M.D. Bronchitis Chronic (HCC); Chronic Obstructive Pulmonary Disease (HCC) Discharge Disposition: Home or Self Care 11/08/2023 Orders Only Division of Pulmonary Medicine in [place], [place] [address] [place] [phone] Astrid Sullivan 11/05/2023 Orders Only Division of Pulmonary Medicine in [place], [place] [address] [place] [phone] Gildardo Canales 11/05/2023 Orders Only Division of Pulmonary Medicine in [place], [place] [address] [place] [phone] Brooke Sanabria M.D. 10/23/2023 Orders Only Division of Pulmonary Medicine in [place], [place] [address] [place] [address] Gildardo Canales Bronchitis Chronic (HCC) (Primary Dx); Chronic Obstructive Pulmonary Disease (HCC) 10/22/2023 Orders Only Division of Pulmonary Medicine in [place], [place] [address] [place] [address] Gildardo Canales 10/08/2023 11:20 AM CDT - 10/08/2023 11:59 PM CDT Hospital Encounter Department of Laboratory Medicine and Pathology, [facility] in [place], [place] [address] [place] [phone] Fox Alvarez M.D. Bronchitis Chronic (HCC); Chronic Obstructive Pulmonary Disease (HCC) Discharge Disposition: Home or Self Care 10/08/2023 11:07 AM CDT - 10/08/2023 11:19 AM CDT Hospital Encounter Department of Radiology, [facility] in [place], [place] [address] [place] [address] Brooke Sanabria M.D. Bronchitis Chronic (HCC); Chronic Obstructive Pulmonary Disease (HCC) Discharge Disposition: Home or Self Care 10/08/2023 9:30 AM CDT Comprehensive Visit Division of Pulmonary Medicine in [place], [place] [address] [place] [phone] Brooke Sanabria M.D. Chronic Obstructive Pulmonary Disease (HCC) (Primary Dx); Bronchitis Chronic (HCC); Flutter Atrial (HCC); Embolus Pulmonary Personal History from Last 3 Months Social History Tobacco Use Types Packs/Day Years Used Date Smoking Tobacco: Former Cigarettes Q uit: 2017 Smokeless Tobacco: Never Tobacco Cessation:Counseling Given: Not Answered Alcohol Use Standard Drinks/Week Comments Not Currently 0 (1 standard drink = 0.6 oz pur e alcohol) [facility] Utilities Answer Date Recorded In the past 12 months has [employer], gas, oil, or water [employer] threatened to shut off services in your [...] your living situation today? I have a [facility] place to live 10/02/2023 Sex and Gender Information Value Date Recorded Sex Assigned at Male 10/02/2023 12:12 PM CDT Legal Sex Male 10:21 AM ADMISSIONS RN Gender Identity Male 10/02/2023 12:12 PM CDT [...] 12/13/2023 7:24 AM CDT Plan of Treatment Health Maintenance Due Date Last Done Comments Hepatitis C Screening 1945 Depression Screening (Annual PHQ-2) 03/11/2023 COVID-19 Vaccine (2023-2 5 season) 2023 12/25/2022, 10/15/2022, 11/28/2021, Additional history exists Influenza Vaccine (#1) 2023 , 11/15/2021, 01/11/2021, Additional history exists Creatinine Level (Kidney Fun ction Test) 02/12/2024 02/11/2023, 02/09/2023, 02/08/2023, Additional history exists Potassium Level 02/12/2024 02/11/2023, 12/0 04/2022, 02/08/2023, Additional history exists Sodium Level 02/12/2024 02/11/2023, 12/0 04/2022, 02/08/2023, Additional history exists DTaP,Tdap,and Td Vaccines (3 - Td or Tdap) 10/19/2025 10/20/2015, 01/11/2014, 01/21/2013, Additional history exists Pneumococcal vaccine (65+ years) Completed 10/20/2015, 02/10/2014, 01/11/2014, Additional history exists Zoster Vaccines Completed 12/18/2017, 11/2017, 07/09/2012 Abdominal Aortic Aneurysm (A AA) Screen Discontinued 01/29/2018, 05/03/2013, 02/13/2013 Colonoscopy Discontinued 02/12/2018 Colorectal Cancer Screening Discontinued RSV vaccine - (32-3 6 weeks) or 60+ years Completed 12/25/2022 Fall Risk Screen (Annual) Completed 12/13/2023 CT Colonography Discontinued Cologuard Discontinued FIT Discontinued Medical Devices Implanted Type Area Environmental Auditor Device Identifier Shelf Expiration Date Model / [...] 10:54 AM CDT) Narrative Heather Portillo APRN, CRNA DNAShai - 12/13/2023 10:54 AM CDT Heather Portillo APRN, CRNA DNAShai ? 12/13/2023 11:01 AM Airway Date/Time: 12/13/2023 10:54 AM Performed by: Liza Ortiz R.N., CCRN Authorized by: Heather Portillo APRN, CRNA, DNAShai ?? Patient location during procedure: OR / Procedure Area PROCEDURE DETAILS: Mask difficulty assessment: easy mask Final airway type: video laryngoscope Laryngeal Manipulation: no ?? Final best view of glottic structures - Cormack/Lehane Score: grade 1 ETT location: oral VL device: glide scope Randolph scope blade size: 4 Tube size: 8 [...] successful ?? Notable Events: no complications Heather Portillo APRN, CRNA, DNAP ANESTHESIA ORDE RABMITALI Final Result * Surgery Image Exam-Surgery Image [...] NON RAD IMAGING PROCE DURES Final Result [facility] NA * Bacterial Culture, Aerobic + Susceptibility, Respiratory (11/08/2023 8:14 AM CDT) Bacterial Culture, Aerobic, Resp Upper respiratory/or al microbiota 11/10/2023 9:15 AM CDT DTL Bronchial Washing 11/08/2023 8:14 AM CDT 11/08/2023 9:55 AM CDT Comment:Specimen Source Site : Wash us Harsha Roberto M.D. LAB MICROBIOLOGY - GENERAL OR DERABLES Final Result Performing Organization Address [facility] Co de Phone Number [facility] [address] [facility] 200 [place] [address] * Mycobacterial Culture (11/08/2023 8:14 AM CDT) Mycobacterial Culture No growth after 42 days of incubation . 12/20/2023 1:01 PM CDT DTL Wash (Bronchus) 11/08/2023 8 :14 AM CDT us Harsha Roberto M.D. LAB MICROBIOLOGY - GENERAL OR DERABLES Final Result Performing Organization Address City/[facility]/ZIP Co de Phone Number [facility] [address] [place] [address], [facility] 200 [place] [phone] * Fungal Smear (11/08/2023 8:14 AM CDT) Fungal Smear Negative. 11/08/2023 3:02 PM CDT DTL Wash (Bronchus) 11/08/2023 8 :14 AM CDT us Harsha Roberto M.D. LAB MICROBIOLOGY - GENERAL OR DERABLES Final Result [facility] [address] [place] [address], [facility] [address] [place] [address] * Acid Fast Smear for Mycobacterium (11/08/2023 8:14 AM CDT) Acid Fast Smear For Mycobacterium Negative. 11/08/2023 6:22 PM CDT DTL Wash (Bronchus) 11/08/2023 8 :14 AM CDT us Harsha Roberto M.D. LAB MICROBIOLOGY - GENERAL OR DERABLES Final Result Performing Organization Address City/[facility]/ZIP Co de Phone Number [facility] [address] [place] [address], [facility] [address] [place] [address] * Gram Stain (11/08/2023 8:14 AM CDT) Gram Stain Upper respiratory/ora l microbiota White blood cells, Few Epithelial cells, Rare 11/08/2023 12:38 PM CDT DTL Wash (Bronchus) 11/08/2023 8 :14 AM CDT us Harsha Roberto M.D. LAB MICROBIOLOGY - GENERAL OR DERABLES Final Result [facility] [address] [place] [address], [facility] [address] [place] [address] * (ABNORMAL) Fungal Culture, Routine (11/08/2023 8:14 [...] MICROBIOLOGY - GENERAL OR DERABLES Final Result [facility] [address] [place] [address], [facility] [address] [place] [address] * LDA ANE ENDOTRACHEAL AIRWAY (11/08/2023 7:51 [...] ETT location: oral VL device: glide scope Randolph scope blade size: 4 Tube size: 8.5 [...] outcome: successful ?? Notable Events: no complications us Fox Oswald M.D. ANESTHESIA ORDERABLES F inal Result * ECG 12 Lead (11/08/2023 6:55 AM CDT) Only the most recent of2 resultswithin the time period is included. Ventricular Rate ECG/Min 88 BPM MUSE QRSD Interval 102 ms MUSE QT Interval 402 ms MUSE QTC Interval 486 ms MUSE P [place] 77 degrees MUSE R [place] 62 degrees MUSE T Wave [place] 68 degrees MUSE 11/08/2023 6:55 AM CDT [...] by ALEK Weston us Marifer Coleman APRN, PEMA, D.N.P. ECG ORDERABLES Final Result MUSE NA * Nicotine and Metabolites (10/08/2023 11:33 AM CDT) Nicotine <3.0 <3.0 ng/mL 10/09/2023 10:09 AM CDT SDSC Cotinine <3.0 <3.0 ng/mL 10/09/2023 10:09 AM CDT [facility] Comment: ----ADDITIONAL INFORMATION---- This test was developed and its performance characteristics determined by [facility] in a manner consistent with CLIA requirements. This test has not been cleared or approved by the U.S. Food and Drug Administration. Blood (Blood, Venous) 10/08/2023 11:33 AM CDT 10/09/2023 7:30 AM CDT Fox Alvarez M.D. LAB BLOOD ADD-ON Final Resu lt [facility] [address] [place] [address] [facility] [address] [place] [address] [place] [address] * DX Chest AP or PA and [...] POchanges cervical spine. Brooke Mulligan M.D. IMG DIAGNOSTIC DAE GING PROCEDURES Final Result * Pulmonary Function Tests (10/08/2023 7:31 AM CDT) PostFVC 3.44 L 10/08/2023 1:58 PM CDT JARA SENTRY SUITE PostFEV1 1.34 L 10/08/2023 1:58 PM CDT [facility] FEV1/FVC POST 38.95 % 10/08/2023 1:58 PM CDT [facility] FEF 25-75 % POST 0.32 L/s 10/08/2023 1:58 PM CDT [facility] SUITE PEF POST 4.11 L/s 10/08/2023 1:58 PM CDT [facility] PIF POST 4.66 L/s 10/08/2023 1:58 PM CDT [facility] FEF 50 % FIF 50 POST 7.13 % 10/08/2023 1:58 PM CDT [facility] FET POST 15.22 sec 10/08/2023 1:58 PM CDT [facility] DLCO SINGLE BREATH POST 9.13 ml/(min*mm Hg) 10/08/2023 1:58 PM CDT [facility] VA SINGLE BREATH POST 6.40 L 10/08/2023 1:58 PM CDT [facility] TLC POST 9.37 L 10/08/2023 1:58 PM CDT [facility] RV 5.64 L 10/08/2023 1:58 PM CDT [facility] RV % TLC POST 60.17 % 10/08/2023 1:58 PM CDT [facility] FVC 3.04 L 10/08/2023 1:58 PM CDT [facility] FEV1 1.09 L 10/08/2023 1:58 PM CDT [facility] FEV1/FVC 35.80 % 10/08/2023 1:58 PM CDT [facility] KVJ04-28% 0.24 L/s 10/08/2023 1:58 PM CDT [facility] PEF PRE 4.38 L/s 10/08/2023 1:58 PM CDT [facility] PIF PRE 4.29 L/s 10/08/2023 1:58 PM CDT [facility] FEF 50 % FIF 50 PRE 6.33 % 10/08/2023 1:58 PM CDT [facility] FET PRE 15.54 sec 10/08/2023 1:58 PM CDT [facility] SUBSTANCE POST Albuterol 10/08/2023 1:58 PM CDT [facility] 10/08/2023 7:31 AM CDT Impressions [facility] - 10/08/2023 1:58 PM CDT Abnormal. Moderate obstruction with air trapping. No significant bronchodilator response. Severe reduction in diffusion capacity secondary to a pulmonary parenchymal abnormality, vascular process, or anemia. Resting pulse oximetery is normal. Exercise not performed due to saftey concerns. Narrative Procedure Note Nanda London M.B.B.STarun - 10/08/2023 IMPRESSION: Abnormal. Moderate obstruction with air trapping. No significantbronchodilator response. Severe reduction in diffusion capacity secondaryto a pulmonary parenchymal abnormality, vascular process, or anemia.Resting pulse oximetery is normal. Exercise not performed due to saftey concerns. us Fox Alvarez M.D. PFT ORDERABLES Final Resul t [facility] NA from Last 3 Months Insurance [employer]
--- OUTSIDE RECORDS SUMMARY | 2024-01-02 08:36 | XMS_ITS | Encounter Summary ---
Author Organization [facility] Address [address] [place] [address] Care Team Providers Care Switchboard Operator Assistant Name Role Phone Unavailable Primary Care Provider Unavailabl e Reason for Referral * Outpatient (Routine) - Closed Specialty Diagnoses / Procedures Referred By Contac t Referred To Contact Diagnoses Bronchitis Chronic (HCC) Chronic Obstructive Pulmonary Disease (HCC) Procedures DX Chest AP or PA and Lateral 2 Views Brooke Sanabria M.D. [address] [place] [address] Phone: tel: fax: [facility] Referral ID Status Reason Start Date Expiration Date Visits Re quested Visits Authorized [id number] Closed 10/08/2023 10/07/2024 1 1 * Outpatient (Routine) - Closed Specialty Diagnoses / Procedures Referred By Contac t Referred To Contact Diagnoses Bronchitis Chronic (HCC) Chronic Obstructive Pulmonary Disease (HCC) Flutter Atrial (HCC) Procedures ECG 12 Lead Brooke Sanabria M.D. [address] [place] [address] Phone: tel: fax: [facility] Referral ID Status Reason Start Date Expiration Date Visits Re quested Visits Authorized [id number] Closed 10/08/2023 10/07/2024 1 1 Reason for Visit * Outpatient (Routine) - Closed Specialty Diagnoses / Procedures Referred By Kajal t Referred To Contact Pulmonary Medicine Diagnoses Bronchitis Chronic (HCC) Chronic Obstructive Pulmonary Disease (HCC) Fox Alvarez M.D. [address] [place] [address] Phone: tel: fax: [facility] Referral ID Status Reason Start Date Expiration Date V isits Requested Visits Authorized [id number] Closed Specialty Services Required 09/19/2023 03/20/2025 1 1 Encounter Details Date Type Department Care Team (Latest Contact Info) Description 10/08/2023 9:30 AM CDT Comprehensive Visit Division of Pulmonary Medicine in [place], [place] [address] [place] [address] Brooke Sanabria M.D. [address] [place] [phone] Chronic Obstructive Pulmonary Disease (HCC) (Primary Dx); Bronchitis Chronic (HCC); Flutter Atrial (HCC); Embolus Pulmonary Personal History Social History Tobacco Use Types Packs/Day Years Used Date Smoking Tobacco: Never Assessed [facility] Utilities Answer Date Recorded In the past 12 months has e [employer], gas, oil, or water [employer] threatened to shut off services in your [...] living situation today? 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 ECG ORDERABLES Ed ited Result - Final MUSE NA * DX Chest AP or [...] IMYou DIAGNOSTIC DAE GING PROCEDURES Final Result documented in this encounter Visit Diagnoses Diagnosis Chronic Obstructive Pulmonary Disease (HCC)- Primary Bronchitis Chronic (HCC) Flutter Atrial (HCC) Embolus Pulmonary Personal History Bronchitis Chronic (HCC) Chronic Obstructive Pulmonary Disease (HCC) documented in this encounter
--- OUTSIDE RECORDS SUMMARY | 2024-01-02 08:36 | XMS_ITS | Encounter Summary ---
Author Organization [facility] Address [address] [place] [address] Care Team Providers Care Theatre Program Director Name Role Phone Unavailable Primary Care Provider Unavailabl e Reason for Referral * Outpatient (Routine) - Closed Specialty Diagnoses / Procedures Referred By Contac t Referred To Contact Diagnoses Bronchitis Chronic (HCC) Chronic Obstructive Pulmonary Disease (HCC) Procedures DX Chest AP or PA and Lateral 2 Views Brooke Sanabria M.D. [address] [place] [address] Phone: tel: fax: [facility] Referral ID Status Reason Start Date Expiration Date Visits Re quested Visits Authorized [id number] Closed 10/08/2023 10/07/2024 1 1 Reason for Visit * Outpatient (Routine) - Closed Specialty Diagnoses / Procedures Referred By Contac t Referred To Contact Diagnoses Bronchitis Chronic (HCC) Chronic Obstructive Pulmonary Disease (HCC) Procedures DX Chest AP or PA and Lateral 2 Views Brooke Sanabria M.D. [address] [place] [address] Phone: tel: fax: [facility] Referral ID Status Reason Start Date Expiration Date Visits Re quested Visits Authorized [id number] Closed 10/08/2023 10/07/2024 1 1 Encounter Details Date Type Department Care Team (Latest Contact Info) Description 10/08/2023 11:07 AM CDT - 10/08/2023 11:19 AM CDT Hospital Encounter Department of Radiology, [facility], in [place], [place] [address] [place] [address] Brooke Sanabria M.D. [address] [place] [address] Bronchitis Chronic (HCC); Chronic Obstructive Pulmonary Disease (HCC) Discharge Disposition: Home or Self Care Social History Tobacco Use Types Packs/Day Years Used Date Smoking Tobacco: Never Assessed [facility] Utilities Answer Date Recorded In [...] your living situation today? 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
--- OUTSIDE RECORDS SUMMARY | 2024-01-02 08:36 | XMS_ITS | Encounter Summary ---
Author Organization [facility] Address [address] [place] [address] Care Team Providers Care Logging Operations Inspector Name Role Phone Unavailable Primary Care Provider Unavailabl e Reason for Visit * Auth/Cert (Routine) Specialty Diagnoses / Procedures Referred By Contac t Referred To Contact Diagnoses Bronchitis Chronic (HCC) Chronic Obstructive Pulmonary Disease (HCC) Bronchitis Chronic (HCC) [J42] Chronic Obstructive Pulmonary Disease (HCC) [J44.9] Procedures AK BRONCH DX W CELL WASH FLUOR BRONCHOSCOPY FLEXIBLE Harsha Roberto M.D. [address] [place] [phone] Phone: tel: fax: Referral ID Status Reason Start Date Expiration Date Visits Re quested Visits Authorized [id number] 1 1 Encounter Details Date Type Department Care Team (Late st Contact Info) Description 11/08/2023 7:46 AM CDT Anesthesia Event [facility] ROMB MAIN OR [address] [place] [phone] Fox Oswald M.D. [address] [place] [phone] Brooke Tran M.D. [address] [place] [phone] Anesthesia Record Procedure Summary Procedure Name Responsible [...] drink = 0.6 oz pur e alcohol) [facility] Utilities Answer Date Recorded In the [...] your living situation today? I have a [facility] place to live 10/02/2023 Sex and Gender Information Value Date Recorded Sex Assigned at Male 10/02/2023 12:12 PM CDT Legal Sex Male 10:21 AM ACCESS SPEC Gender Identity Male 10/02/2023 12:12 PM CDT Sexual Orientation Straight 10/02/2023 12 :12 PM CDT documented as of this encounter OR Notes * Anesthesia Postprocedure Evaluation - ChantigianFox M.D. - 11/08/2023 10:00 AM CDT Patient: Butch Nieves Procedure Summary Date: 11/08/23 Room / Location: [address] 01 [facility] in [place], [place] Anesthesia Start: 745 Anesthesia Stop: 853 [...] ETT location: oral VL device: glide scope Counselor scope blade size: 4 Tube size: 8.5 [...] first case if possible, per Dr. Felix [id number]. Diagnosis: Bronchitis Chronic (HCC) [J42] Chronic Obstructive Pulmonary Disease (HCC) [J44.9] Pre-op diagnosis: Bronchitis Chronic (HCC) [J42], Chronic Obstructive Pulmonary Disease (HCC) [J44.9]. Location: [place] [address] / [facility] in [place], [place] Providers: Harsha Roberto M.D. Pertinent components [...] patient / legal guardian, or through an coil spring assembler; patient evaluated and approved for anesthesia / [...] ETT location: oral VL device: glide scope Counselor scope blade size: 4 Tube size: 8.5 [...] Oswald M.D. ANESTHESIA ORDERABLES F inal Result documented in this encounter Visit Diagnoses [...]
--- OUTSIDE RECORDS SUMMARY | 2024-01-02 08:36 | XMS_ITS | Encounter Summary ---
Author Organization [facility] Address [address] [place] [address] Care Team Providers Care Poultry Slaughterer Name Role Phone Unavailable Primary Care Provider Unavailabl e Encounter Details Date Type Department Care Team (Late st Contact Info) Description 02/06/2018 [facility] [address] [place] [address] Wesley Dugan M.D. 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
--- OUTSIDE RECORDS SUMMARY | 2024-01-02 08:36 | XMS_ITS | Encounter Summary ---
Author Organization [facility] Address [address] [place] [address] Care Team Providers Care Mission Coordinator Name Role Phone Unavailable Primary Care Provider Unavailabl e Encounter Details Date Type Department Care Team (Late st Contact Info) Description 10/22/2023 Orders Only Division of Pulmonary Medicine in [place], [place] [address] [place] [address] Gildardo Canales Social History Tobacco Use Types Packs/Day Years Used Date Smoking Tobacco: Never Assessed [facility] Utilities Answer Date Recorded In the past [...] your living situation today? 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
--- OUTSIDE RECORDS SUMMARY | 2024-01-02 08:36 | XMS_ITS | Continuity of Care Document ---
Author Organization [facility] Address [address] [place] [address] Phone Care Team Providers Care Sales Driver Name Role Phone Minesh Fonseca Unavailable Unavailable Procedures Procedure Date Office/Outpatient Visit,[facility] 2021 Advance Directives Directive Yes / No Effective Date File Name No Information Encounters Encounter Description Practice Location Reason(s) For Visit Diagnoses Date Provider Providers Copied on Encounter Office/Outpat ient Visit,, [facility], [address], [place], [place], [id number], [place] tel:[phone] [facility] Other intervertebral disc degeneration, lumbar region 2 Chavo Edge. [facility], [address] [place] [address], [address], [place], [place], [id number] , [place]. tel:[phone] Referring Provider: Arnoldo Meyers, [facility] [address] [place] [address], [address]. tel:[phone] Family History Family Member Type Diagnosis Age At Onset No Information Payers Payer name Insurance type Covered constitution party ID Authoriza tion(s) [employer] Medicare Gold Choice Sienna LAZO [id number] Social History Type Description Quantity Date [...]
--- OUTSIDE RECORDS SUMMARY | 2024-01-02 08:36 | XMS_ITS | Continuity of Care Document ---
Author Organization [facility] Address [facility] [place] [address] Phone Care Team Providers Care Director Of Special Education Name Role Phone Santi Rojas MD Unavailable [...] Diagnoses Date Provider Providers Copied on Encounter [facility], [address] [place] [address] [place], [place], [id number] tel:[phone] [facility] No Information 3 Bob Hancock. [address] [place], [place] [address], [place], [id number]. tel: [phone] [facility], [address] [place] [address] [place], [place], [id number] tel:[phone] [facility] Epigastric Pain (chief complaint)H x H-pylori (chief complaint) Abdominal Pain, EpigastricDyspepsi aChronic Gastritis 1 Bob Hancock. [address] [place] [address], [place], [id number]. tel: [phone] [facility], [address] [place] [address] [place], [place], [id number] tel:[phone] [facility] No Information 1 Bob Hancock. [address] [place] [address], [place], [id number]. tel: [phone] [facility], [address] [place] [address] [place], [place], [id number] tel:[phone] [facility] No Information 1 Bob Hancock. [address] [place] [address], [place], [id number]. tel: [phone] Family History Family Member Type Diagnosis Age At Onset Father Problem (finding) Father Problem (finding) pulmonary emphysema (Ca use Of ) Sister Problem (finding) Lymphoma Payers Payer name Insurance type Covered democrat ID racheal leilaha(s) Medicare [id number] Social History Type Description Quantity Date Captured [...]
--- OUTSIDE RECORDS SUMMARY | 2024-01-02 08:36 | XMS_ITS | Encounter Summary ---
Author Organization [facility] Address [address] [place] [address] Care Team Providers Care Digital Campaign Manager Name Role Phone Unavailable Primary Care Provider Unavailabl e Encounter Details Date Type Department Care Team (Latest Contact Info) Description 10/08/2023 11:20 AM CDT - 10/08/2023 11:59 PM CDT Hospital Encounter Department of Laboratory Medicine and Pathology, [facility], in [place], [place] [address] [place] [address] Fox Alvarez M.D. [address] [place] [phone] Bronchitis Chronic (HCC); Chronic Obstructive Pulmonary Disease (HCC) Discharge Disposition: Home or Self Care Social History Tobacco Use Types Packs/Day Years Used Date Smoking Tobacco: Never Assessed [facility] Utilities Answer Date Recorded In the past 12 months has [facility] [employer], gas, oil, or water [employer] threatened to shut off services in your [...] your living situation today? 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 This test has not been cleared or approved by the U.S. Food and Drug Administration. Blood (Blood, Venous) 10/08/2023 11:33 AM CDT 10/09/2023 7:30 AM CDT us Fox Alvarze M.D. LAB BLOOD ADD-ON Final Resu lt [facility] [place] [address] [place] [phone] [facility] [address] [place] [address] [place] [phone] documented in this encounter Visit Diagnoses Diagnosis Bronchitis Chronic (HCC) Chronic Obstructive Pulmonary Disease (HCC) documented in this encounter
--- OUTSIDE RECORDS SUMMARY | 2024-01-02 08:36 | XMS_ITS | Encounter Summary ---
Author Organization [facility] Address [address] [place] [address] Care Team Providers Care Modern Greek Studies Professor Name Role Phone Unavailable Primary Care Provider Unavailabl e Encounter Details Date Type Department Care Team (Late st Contact Info) Description 11/05/2023 Orders Only Division of Pulmonary Medicine in [place], [place] [address] [place] [phone] Brooke Sanabria M.D. [address] [place] [address] Social History Tobacco Use Types Packs/Day Years Used Date Smoking Tobacco: Never Assessed [facility] Utilities Answer Date Recorded In the [...] your living situation today? 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
--- OUTSIDE RECORDS SUMMARY | 2024-01-02 08:36 | XMS_ITS | Encounter Summary ---
Author Organization [facility] Address [address] [place] [address] Care Team Providers Care Engineering Recruiter Name Role Phone Unavailable Primary Care Provider Unavailabl e Encounter Details Date Type Department Care Team (Late st Contact Info) Description 10/23/2023 Orders Only Division of Pulmonary Medicine in [place], [place] [address] [place] [address] Gildardo Canales Bronchitis Chronic (HCC) (Primary Dx); Chronic Obstructive Pulmonary Disease (HCC) Social History Tobacco Use Types Packs/Day Years Used Date Smoking Tobacco: Never Assessed [facility] Utilities Answer Date Recorded In [...] your living situation today? 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
--- OUTSIDE RECORDS SUMMARY | 2024-01-02 08:36 | XMS_ITS | Continuity of Care Document ---
Author Organization [facility] Address [address] [place] [address] Phone Care Team Providers Care Superintendent Local Name Role Phone Malachi Beth NP Unavailable [...] puff - Active Flonase 50 mcg/actuation Nasal [place] spray 2 spray by intranasal route every [...] Min Pain Assessment And Follow Up Plan [facility] Therapeutic Procedure Neuromuscular Re-education Therapeutic Procedure Therapeutic [...] Encounter Est Pt Eval 25 Min Vaughn, [facility], [address], [place], [place], [address], [place] tel:[phone] [facility] Obesity, unspecifiedOt her spondylosis with radiculopathy , lumbar regionLong term (current) use of opiate analgesicOthe r cervical disc degeneration, unsp cervical regionLow back painPostlamin ectomy syndrome, not elsewhere classified 7 Ignacia M. [address], [facility] , [place], [address], [place]. tel:[phone] Referring Provider: Miri Amaya, [address] [address] [place], [address]. tel:[phone] Est Pt Eval 25 Min [facility], [address], [place], [place], [address], [place] tel:[phone] [facility] Postlaminecto my syndrome, not elsewhere classifiedCer vicalgiaLow back painLong term (current) use of opiate analgesic 7 No Information Referring Provider: Miri Amaya, [address] [place] [address] [address] [place], [address]. tel:[phone] Est Pt Eval 25 Min [facility], [address], [place], [place], [address], [place] tel:[phone] [facility] Postlaminecto my syndrome, not elsewhere classifiedCer vicalgiaLow back painLong term (current) use of opiate analgesic Nov-0 3 6 No Information Referring Provider: Miri Amaya, [address] [place] [address] [address] [place], [address]. tel:[phone] Est Pt Eval 25 Min [facility], [address], [place], [place], [address], [place] tel:[phone] [facility] Postlaminecto my syndrome, not elsewhere classifiedLow back painCervicalg iaLong term (current) use of opiate analgesic Sep-0 - 6 No Information Referring Provider: Miri Amaya, [address] [place] [address] [address] [place], [address]. tel:[phone] Est Pt Eval 25 Min [facility], [address], [place], [place], [address], [place] tel:[phone] [facility] Postlaminecto my syndrome, not elsewhere classifiedLow back painCervicalg iaLong term (current) use of opiate analgesic Colten-0 6 No Information Referring Provider: Miri Amaya, [address] [place] [address] [address] [place], [address]. tel:[phone] Est Pt Eval 15 Min [facility], [address], [place], [place], [address], [place] tel:[phone] [facility] Other spondylosis with radiculopathy , lumbar regionObesity termite technician (current) use of opiate analgesicCarp al tunnel syndrome, right upper limb 0- 6 Openda Too. [address], [place], [address], [place]. tel:[phone] Miri Vargas.Refe rring Provider: Miri Amaya, [address] [place] [address] [address] [place], [address]. tel:[phone] Est Pt Eval 15 Min [facility], [address], [place], [place], [address], [place] tel:[phone] [facility] Other spondylosis with radiculopathy , lumbar regionObesity FDC (current) use of opiate analgesicCarp al tunnel syndrome, right upper limb 8 6 Openda Too. [address], [place], [address], [place]. tel:[phone] Referring Provider: Miri Amaya, [address] [place] [address] [address] [place], [address]. tel:[phone] Est Pt Eval 15 Min [facility], [address], [place], [place], [address], [place] tel:[phone] [facility] Other spondylosis with radiculopathy , lumbar regionObesity termite technician (current) use of opiate analgesicCarp al tunnel syndrome, right upper limb 6 Openda Too. [address], [place], [address], [place]. tel:[phone] Referring Provider: Miri Amaya, [address] [place] [address] [address] [place], [address]. tel:[phone] [facility], [address], [place], [place], [address], [place] tel:[phone] [facility] 7390 No Information 5 Barthold PT [place]. [address], [place], [address], [place]. [phone] Referring Provider: iMri Amaya, [address] [place] [address] [address] [place], [address]. tel:[phone] Est Pt Eval 15 Min Vaughn, [facility], [address], [place], [place], [address], [place] tel:[phone] [facility] Other spondylosis with radiculopathy , lumbar regionObesity FDC (current) use of opiate analgesic Feb- Openda Too. [address], [place], [address], [place]. tel:[phone] Referring Provider: Miri Amaya, [address] [place] [address] [address] [place], [address]. tel:[phone] [facility], [address], [place], [address], [place] tel:[phone] [facility] 7390 No Information 5 Barthold PT [place]. [address], [address], [place], [address], [place]. tel:[phone] Referring Provider: Miri Amaya, [address] [place] [address] [address] [place], [address]. tel:[phone] [facility], [address], [place], [address], [place] tel:[phone] [facility] 7390 No Information 5 Barthold PT [place]. [address], [address], [place], [address], [place]. tel:[phone] Referring Provider: Miri Amaya, [address] [place] [address] [address] [place], [address]. tel:[phone] Est Pt Eval 25 Min [facility], [address], [place], [place], [address], [place] tel:[phone] [facility] Other spondylosis with radiculopathy , lumbar regionObesity FDC (current) use of opiate analgesic Dec- 9-201 5 Roberson Lashonda. [address], [address], [place], [place], [address], [place]. tel:[phone] Referring Provider: Miri Amaya, [address] [place] [address] [address] [place], [address]. [phone] [facility], [address], [address], [place], [address], [place] tel:[phone] [facility] Cony No Information Sep-3 0-201 5 Lazaro Zendejas. [address], [place], [place], [address], [place]. tel:[phone] Referring Provider: Aashish Ly, [address], [place], [address]. tel:[phone] [facility], [address], [place], [place], [address], [place] tel:[phone] [facility] [place] No Information Sep-3 0-201 5 Lazaro Zendejas. [address], [place], [place], [address], [place]. tel:[phone] Referring Provider: Miri Amaya, [address] [place] [address] [address] [place], [address]. tel:[phone] Est Pt Eval 25 Min [facility], [address], [place], [place], [address], [place] tel:[phone] [facility] No Information Nov-0 8- 5 Openda Too. [address], [place], [address], [place]. tel:[phone] Referring Provider: Miri Amaya, [address] [place] [address] [address] [place], [address]. tel:[phone] Vaughn [facility], [address], [place], [place], [address], [place] tel:[phone] [facility] 7390 No Information Aug-2 3-201 5 Herminia Swapna. [address], [address], [place], [place], [address], [place]. tel:[phone] Referring Provider: Miri Amaya, [address] [place] [address] [address] [place], [address]. tel:[phone] Vaughn [facility], [address], [place], [place], [address], [place] tel:[phone] Cony Mendes [facility] 7390 No Information Aug-1 0-201 5 Herminia Swapna. [address], [address], [place], [place], [address], [place]. tel:[phone] Referring Provider: Miri Amaya, [address] [place] [address] [address] [place], [address]. tel:[phone] Est Pt Eval 25 Min Vaughn, [facility], [address], [place], [place], [address], [place] tel:[phone] [facility] No Information Angel-0 9- 5 King AZEEM Zendejas. [address], [facility] , [place], [place], [address], [place]. tel:[phone] Referring Provider: Miri Amaya, [address] [place] [address] [address] [place], [address]. tel:[phone] [facility], [address], [place], [place], [address], [place] tel:[phone] [facility] No Information 5 Herminia Swapna. [address], [address], [place], [place], [address], [place]. tel:[phone] Referring Provider: Miri Amaya, [address] [place] [address] [address] [place] [facility], [place], [address]. tel:[phone] [facility], [address], [place], [place], [address], [place] tel:[phone] [facility] No Information Herminia Swapna. [address], [address], [place], [place], [address], [place]. [phone] Referring Provider: Miri Amaya, [address] [place] [address] [address] [place], [address]. tel:[phone] [facility], [address], [place], [place], [address], [place] tel:[phone] [facility] 7390 No Information 5 Barthold PT [place]. [address], [place], [place], [address], [place]. tel:[phone] Referring Provider: Miri Amaya, [address] [place] [address] [address] [place], [address]. tel:[phone] Est Pt Eval 25 Min [facility], [address], [place], [place], [address], [place] tel:[phone] [facility] No Information 5 Lazaro Zendejas. [address], [place], [place], [address], [place]. tel:[phone] Referring Provider: Miri Amaya, [address] [place] [address] [address] [place], [place], [address]. tel:[phone] Est Pt Eval 25 Min [facility], [address], [place], [place], [address], [place] tel:[phone] [facility] No Information 5 King AZEEM Zendejas. [address], [facility] , [place], [place], [address], [place]. tel:[phone] Referring Provider: Miri Amaya, [address] [place] [address] [address] [place] [facility] [place], [place], [address]. tel:[phone] Est Pt Eval 25 Min [facility], [address], [place], [place], [address], [place] tel:[phone] [facility] No Information 5 King AZEEM Zendejas. [address], [facility] , [place], [place], [address], [place]. [phone] Referring Provider: Miri Amaya, [address] [place] [address] [address] [place], [address]. tel:[phone] Est Pt Eval 15 Min [facility], [address], [place], [place], [address], [place] tel:[phone] [facility] No Information No Information Referring Provider: Miri Amaya, [address] [place] [address] [address] [place], [address]. tel:[phone] [facility], [address], [place], [address], [place] tel:[phone] [facility] No Information [facility]. [address], [address], [place], [address], [place]. Referring Provider: Ozzie Hyman MD, [address] [place] [address] [facility], [place], [address]. tel:[phone] [facility], [facility], [address], [place], [place], [address], [place] tel:[phone] [facility] No Information Boogie Horne. [address] [place], N [facility], [place], [address]. tel:[phone] Referring Provider: Miri Amaya, [address] [place] [address] [address] [place], [address]. tel:[phone] Est Pt Eval 15 Min [facility], [facility], [address], [place], [place], [address], [place] tel:[phone] [facility] No Information No Information Referring Provider: Miri Amaya, [address] [place] [address] [address] [place], [address]. tel:[phone] Est Pt Eval 15 Min [facility], [facility], [address], [place], [place], [address], [place] tel:[phone] [facility] No Information Dec-1 1-201 4 No Information Referring Provider: Miri Amaya, [address] [place] [address] [address] [place], [address]. tel:[phone] Est Pt Eval 25 Min [facility], [address], [place], [place], [address], [place] tel:[phone] [facility] No Information 4 Bart Amy. [address], [place], [address], [place]. tel:[phone] Referring Provider: Miri Amaya, [address] [place] [address] [address] [place], [address]. tel:[phone] [facility], [address], [place], [address], [place] tel:[phone] [facility] No Information 4 Gwyn Hoffman. [address] [place], [facility], [place], [address]. tel:[phone] Referring Provider: Dalton Avila, [address] [place] [facility], [place], [address]. tel:[phone] [facility], [address], [place], [place], [address], [place] tel:[phone] [facility] No Information 4 Gwyn Hoffman. [address] [place], [facility], [place], [address]. tel:[phone] Referring Provider: Miri Amaya, [address] [place] [address] [address] [place], [address]. tel:[phone] Est Pt Eval 25 Min [facility], [address], [place], [place], [address], [place] tel:[phone] [facility] No Information 4 Vinnie Berrios. [address] [place], [address], [place]. Referring Provider: Miri Amaya, [address] [place] [address] [address] [place], [address]. tel:[phone] [facility], [address], [place], [address], [place] tel:[phone] [facility] No Information 4 Gwyn Hoffman. [address] [place], [facility], [place], [address]. tel:[phone] Referring Provider: Dalton Avila, [address] [place] [facility], [place], [address]. tel:[phone] [facility], [facility], [address], [place], [place], [address], [place] tel:[phone] [facility] No Information 4 Gwyn Hoffman. [address] [place], [facility], [place], [address]. tel:[phone] Referring Provider: Miri Amaya, [address] [place] [address] [address] [place], [address]. tel:[phone] Est Pt Eval 25 Min [facility], [facility], [address], [place], [place], [address], [place] tel:[phone] [facility] No Information 4 Vinnie Berrios. [address] [place], [address], [place]. Referring Provider: Miri Amaya, [address] [place] [address] [address] [place], [address]. tel: [phone] [facility], [address], [place], [place], [address], [place] tel:[phone] Cony Vaughn [facility] 7390 No Information Lexau Navi. [address], [place], [place], [address], [place]. tel:[phone] Referring Provider: Miri Amaya, [address] [place] [address] [address] [place], [address]. tel:[phone] Est Pt Eval 25 Min Vaughn, [facility], [address], [place], [place], [address], [place] tel:[phone] [facility] No Information 4 No Information Referring Provider: Miri Amaya, [address] [place] [address] [address] [place], [address]. tel:[phone] Est Pt Eval 25 Min Vaughn, [facility], [address], [place], [place], [address], [place] tel:[phone] [facility] No Information 4 No Information Referring Provider: Miri Amaya, [address] [place] [address] [address] [place], [address]. tel:[phone] Est Pt Eval 15 Min Vaughn, [facility], [address], [place], [place], [address], [place] tel:[phone] [facility] No Information 4 No Information Referring Provider: Miri Amaya, [address] [place] [address] [address] [place], [address]. [phone] [facility], [address], [place], [place], [address], [place] tel:[phone] [facility] No Information 4 No Information Referring Provider: Miri Amaya, [address] [place] [address] [address] [place], [address]. tel:[phone] Est Pt Eval 25 Min [facility], [facility], [address], [place], [place], [address], [place] tel:[phone] [facility] No Information Vinnie Berrios. [address] [place] [address], [address], [place]. Referring Provider: Miri Amaya, [address] [place] [address] [address] [place], [address]. tel: [phone] Offic/outpt E&m Estab Mod-hi 2 [facility], [facility], [address], [place], [place], [address], [place] tel:[phone] [facility] No Information 4 Vinnie Nyei. [address] [place] [address], [address], [place]. Referring Provider: Miri Amaya, [address] [place] [address] [address] [place], [address]. tel: [phone] [facility], [address], [place], [place], [address], [place] tel:[phone] [facility] No Information 4 No Information Referring Provider: Miri Amaya, [address] [place] [address] [address] [place], [address]. tel:[phone] Offic/outpt E&m Estab Mod-hi 2 Vaughn, [facility], [address], [place], [place], [address], [place] tel:[phone] [facility] No Information 4 [facility] [place]. [address] [place], [address], [place]. Referring Provider: Miri Amaya, [address] [place] [address] [address] [place] [facility] [place], [place], [address]. tel:[phone] Offic/outpt E&m Estab Mod-hi 2 Vaughn, [facility], [address], [place], [place], [address], [place] tel:[phone] [facility] No Information 4 [facility] [place]. [address] [place], [address], [place]. Referring Provider: Miri Amaya, [address] [place] [address] [address] [place] [facility] [place], [place], [address]. tel:[phone] [facility], [facility], [address], [place], [place], [address], [place] tel:[phone] [facility] No Information 4 No Information Referring Provider: Miri Amaya, [address] [place] [address] [address] [place] [facility] [place], [place], [address]. tel:[phone] [facility], [facility], [address], [place], [place], [address], [place] tel:[phone] [facility] No Information 4 Lazaro Zendejas. [address], [place], [place], [address], [place]. tel:[phone] Referring Provider: Miri Amaya, [address] [place] [address] [address] [place], [address]. tel:[phone] Offic/outpt E&m New Mod-hi 45 Vaughn [facility], [address], [place], [address], [place] tel:[phone] [facility] No Information 4 Vinnie Berrios. [address] [facility], [place], [address], [place]. Referring Provider: Miri Amaya, [address] [facility] [address] [facility] [address] [place], [address]. tel:[phone] Family History Family Member Type Diagnosis Age At Onset N/A Problem (finding) No Significant Family H istory Payers Payer name Insurance type Covered constitution party ID Authoriza tion(s) [employer] Medicare PPO 16 [id number] Social History Type Description Quantity Date Captured [...]
--- OUTSIDE RECORDS SUMMARY | 2024-01-02 08:36 | XMS_ITS | Encounter Summary ---
Author Organization [facility] Address [address] [place] [address] Care Team Providers Care Director Diabetes Name Role Phone Unavailable Primary Care Provider Unavailabl e Encounter Details Date Type Department Care Team (Late st Contact Info) Description 11/05/2023 Orders Only Division of Pulmonary Medicine in [place], [place] [address] [place] [address] Gildardo Canales Social History Tobacco Use Types Packs/Day Years Used Date Smoking Tobacco: Never Assessed [facility] Utilities Answer Date Recorded In the [...] your living situation today? I have a [facility] 10/02/2023 Sex and Gender Information Value Date Recorded Sex Assigned at Male 10/02/2023 12:12 PM CDT Legal Sex Male 10:21 AM [employer] Gender Identity Male 10/02/2023 12:12 PM CDT Sexual Orientation Straight 10/02/2023 12 :12 PM CDT documented as of this encounter Plan of Treatment Not on file documented as of this encounter Visit Diagnoses Not on filedocumented in this encounter
--- OUTSIDE RECORDS SUMMARY | 2024-01-02 08:36 | XMS_ITS | Encounter Summary ---
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 [address] [place] [address] Phone: tel: fax: Referral ID Status Reason Start Date Expiration Date Visits Re quested Visits Authorized [id number] 1 1 Encounter Details Date Type Department Care Team (Latest Contact Info) Description 11/08/2023 5:53 AM CDT - 11/08/2023 9:45 AM CDT Hospital Encounter [facility] [address] [place] [id number] Harsha Roberto M.D. [address] [place] [phone] Bronchitis Chronic (HCC); Chronic Obstructive Pulmonary Disease (HCC) Discharge Disposition: Home or Self Care Social History Tobacco Use Types Packs/Day Years Used Date Smoking Tobacco: Former Cigarettes Q uit: 2017 Smokeless Tobacco: Never Tobacco Cessation:Counseling Given: Not Answered Alcohol Use Standard Drinks/Week Comments Not Currently 0 (1 standard drink = 0.6 oz pur e alcohol) [facility] Utilities Answer Date Recorded In the past [...] living situation today? 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 * Bronchoscopy: Looking at [employer] ([place]) documented in this encounter Medications at Time [...] total) by mouth daily. 10 tablet 11/05/2023 4 documented as of this encounter OR Notes [...] OR DERABLES Final Result Performing Organization Address City/[facility]/ZIP Co de Phone Number [facility] [address] [place] [address] * Mycobacterial Culture (11/08/2023 8:14 AM CDT) Mycobacterial Culture No growth after 42 days of incubation . 12/20/2023 1:01 PM CDT DTL Wash (Bronchus) 11/08/2023 8 :14 AM CDT us Harsha Roberto M.D. LAB MICROBIOLOGY - GENERAL OR DERABLES Final Result Performing Organization Address City/[facility]/ZIP Co de Phone Number [facility] [address] [place] [address], [facility] [place] [address] [place] [address] * Fungal Smear (11/08/2023 8:14 AM CDT) Fungal Smear Negative. 11/08/2023 3:02 PM CDT DTL Wash (Bronchus) 11/08/2023 8 :14 AM CDT us Harsha Roberto M.D. LAB MICROBIOLOGY - GENERAL OR DERABLES Final Result Performing Organization Address City/[facility]/ZIP Co de Phone Number [facility] [address] [place], [place] [phone] [place] [address] [address] [place] [address] * Acid Fast Smear for Mycobacterium (11/08/2023 8:14 AM CDT) Acid Fast Smear For Mycobacterium Negative. 11/08/2023 6:22 PM CDT DTL Wash (Bronchus) 11/08/2023 8 :14 AM CDT us Harsha Roberto M.D. LAB MICROBIOLOGY - GENERAL OR DERABLES Final Result Performing Organization Address [facility] Co de Phone Number [facility] [address] [place] [address], [facility] [address] [place] [address] * Gram Stain (11/08/2023 8:14 AM CDT) Gram Stain Upper respiratory/ora l microbiota White blood cells, Few Epithelial cells, Rare 11/08/2023 12:38 PM CDT DTL Wash (Bronchus) 11/08/2023 8 :14 AM CDT us Harsha Roberto M.D. LAB MICROBIOLOGY - GENERAL OR DERABLES Final Result Performing Organization Address City/[facility]/ZIP Co de Phone Number [facility] [address] [place] [address], [facility] [address] [place] [address] * (ABNORMAL) Fungal Culture, Routine (11/08/2023 8:14 [...] MICROBIOLOGY - GENERAL OR DERABLES Final Result [facility] [address] [place] [address], [facility] [place] [address] [place] [address] * ECG 12 Lead (11/08/2023 6:55 AM CDT) Ventricular Rate ECG/Min 88 BPM MUSE QRSD Interval 102 ms MUSE QT Interval 402 ms MUSE QTC Interval 486 ms MUSE P [place] 77 degrees MUSE R [place] 62 degrees MUSE T Wave [place] 68 degrees MUSE 11/08/2023 6:55 AM CDT [...]
--- OUTSIDE RECORDS SUMMARY | 2024-01-02 08:37 | XMS_ITS | Encounter Summary ---
Author Organization [facility] Address [address] [place] [address]. [place] [address] Care Team Providers Care Forge Operator Name Role Phone Wesley Dugan MD Primary Care Provider [phone] Wesley Dugan MD Unavailable [phone] Nela Sheth RN Unavailable Unavailable Ella Matias PA-C Unavailable Santi Heller MD Unavailable Aashish Leone MD Unavailable Unavail able Tato Mallory MD Unavailable [phone] Chirag Taylor MD Primary Care Provider + Miguel Culver PA-C Unavailable Wesley Dugan MD Unavailable [phone] Reason for Visit * Reason Comments Medication Refill Encounter Details Date Type Department Care Team (Late st Contact Info) Description 02/21/2020 Refill [facility] [address] [place] [address] [place] [address] [place], [place] [id number] Medication Refill Social History Tobacco Use Types Packs/Day Years Used Date Smoking Tobacco: Former Cigarettes 0 1958 - 2016 Smokeless Tobacco: Never Alcohol Use Standard Drinks/Week Comments Not Currently 0 (1 standard drink = 0.6 oz pur e alcohol) PHQ-2 Answer Date Recorded PHQ-2 Score 2 10/16/2019 Sex and Gender Information Value Date Recorded Sex Assigned at Male 03/30/2018 7:28 AM 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 Legal Sex Male 12:44 PM CDT Gender Identity Male 03/30/2018 7:28 AM 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 Sexual Orientation Straight 02/18/2018 9: 07 AM 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 documented as of this encounter Miscellaneous Notes * Telephone Encounter - Charlotte Castro RN - 02/23/2020 2:24 PM CST Medication refilled per [facility] protocol Charlotte Castro RN O VISUAL DESIGN ENGINEER documented in this encounter Plan of Treatment Not on file documented as of this encounter Visit Diagnoses Diagnosis Heartburn documented in this encounter Additional Health Concerns Assessment Noted Time PHQ-9 Depression Total Score: 7 10/16/19 20 7:11 AM CDT documented as of this encounter Care Teams Forge Operator Relationship Specialty [place] [address] [place], [place] [phone] PCP - General Family Practice 03/14/21 Ch[place] [id number] [place] [id number] PCP - General 03/15/20 03/13/21 [place] [address] [place] [address] Assigned PCP 09/19/14 02/23/22 Nela Sheth RN Personal Advocate & Liaison (PAL) Family Practice 10/13/19 03/14/20 Ella Matias, PALizzethC [address] [place] [address] Assigned Cancer Care Provider 01/01/20 03/18/21 Santi Heller MD [address] [facility] [address] [place] [address] Assigned Surgical Provider 01/01/2003/01 Aashish Leone MD Assigned Heart and Vascular Provider 01/01/20 05/07/20 [place] [address] [facility] [address] [place], [place] [phone] Assigned Musculoskeletal Provider 01/01/20 07/23/20 Miguel Culver PA-C [address] [place] [address] Assigned Heart and Vascular Provider 05/25/20 04/29/21 [place] [address] [place], [place] [id number] Assigned PCP 05/05/22 10/19/22 documented as of this encounter
--- OUTSIDE RECORDS SUMMARY | 2024-01-02 08:37 | XMS_ITS | Clinical Summary ---
Author Organization [facility] Address [address] [place] [id number] Care Team Providers Care Chemical Blender Name Role Phone Wesley Dugan MD Primary Care Provider [phone] Allergies Active Allergy Reactions Criticality Noted Date Comments Bupropion 12/30/2017 tinnitus Isosorbide Nitrate 08/19/2013 Headache Spironolactone Other (See Comments) Medium 10/31/2018 gynecomastia Topiramate 12/01/2018 Doses higher than 50 daily not tolerated Venlafaxine 07/13/2019 anxiety Medications aspirin 81 MG tabletIndications :CAD (coronary artery disease) Take 1 tablet (81 mg) by mouth daily 30 tablet 3 08/21/19 14 Active ORDER FOR DMEIndications:CO PD (chronic obstructive pulmonary disease) (H),Hypoxia Equipment being ordered: Home Portable Oxygen Concentrator, Use at 2 Liters/min SpO2 levels: 86% with stairs, 92 % with walking, 95 % at rest Denice 1 each 0 01/12/20 14 Active ORDER FOR DMEIndications:CO PD (chronic obstructive pulmonary disease) (H) Equipment being ordered: Nasal Cannula 1 Device 11 07/16/19 15 Active order for DMEIndications:Sl eep-related hypoventilation,P anlobular emphysema (H),Hypoxia Equipment being ordered: Oxygen concentrator with battery 1 each 06/12/19 17 Active order for DMEIndications:Av ascular necrosis of bone of hip, left (H) Equipment being ordered: walk in tub with door 1 each 10/17/19 19 Active VITAMIN E PO Take 180 mg by mouth daily Active metoprolol succinate ER (TOPROL XL) 25 MG 24 hr tabletIndications :HTN, goal below 140/90,Hx of coronary artery disease Take 3 tablets (75 mg) by mouth daily 270 tablet 3 02/28/20 19 Active rosuvastatin (CRESTOR) 40 MG tabletIndications :Hyperlipidemia LDL goal <70 TAKE 1 TABLET EVERY DAY 90 tablet 3 02/28/20 19 Active budesonide-formot leonard (SYMBICORT) 160-4.5 MCG/ACT InhalerIndication s:Panlobular emphysema (H) Inhale 2 puffs into the lungs 2 times daily 3 Inhaler 3 02/28/20 19 Active NARCAN 4 MG/0.1ML nasal sprayIndications: Continuous opioid dependence (H) USE 1 SPRAY IN ONE NOSTRIL, ALTERNATING NOSTRILS ONCE NEEDED FOR OPIOID REVERSAL EVERY 2-3 MINS UNTIL ASSISTANCE ARRIVES 2 each 03/17/19 20 Active roflumilast (DALIRESP) 500 MCG TABS tabletIndications :Panlobular emphysema (H) Take 1 tablet (500 mcg) by mouth daily 90 tablet 3 07/09/19 20 Active nitroGLYcerin (NITROSTAT) 0.4 MG sublingual tabletIndications :Coronary artery disease involving stebbins coronary artery of stebbins heart without angina pectoris For chest pain place 1 tablet under the tongue every 5 minutes for 3 doses. If symptoms persist 5 minutes after 1st dose call 911. 25 tablet 11 08/17/19 20 Active Vitamin D3 (VITAMIN D3) 25 mcg (1000 units) tabletIndications :Vitamin D deficiency Take 1 tablet (25 mcg) by mouth daily 100 tablet 3 08/17/19 20 Active losartan (COZAAR) 25 MG tabletIndications :Hx of coronary artery disease TAKE 1 TABLET (25 MG) BY MOUTH DAILY 90 tablet 4 08/26/19 20 Active melatonin 3 MG tablet Take 3 mg by mouth nightly as needed for sleep Active fluticasone (FLONASE) 50 MCG/ACT nasal sprayIndications: Chronic rhinitis USE 2 SPRAYS INTO BOTH NOSTRILS DAILY 48 g 3 09/11/19 20 Active tamsulosin (FLOMAX) 0.4 MG capsuleIndication s:Benign prostatic hyperplasia with weak urinary stream TAKE 1 CAPSULE EVERY DAY 90 capsule 3 10/16/19 20 Active colchicine (COLCRYS) 0.6 MG tabletIndications :Personal history of calcium pyrophosphate deposition disease (CPPD) TAKE 1 TABLET TWICE DAILY 180 tablet 1 10/27/19 20 Active ipratropium - albuterol 0.5 mg/2.5 mg/3 mL (DUONEB) 0.5-2.5 (3) MG/3ML neb solutionIndicatio ns:Panlobular emphysema (H) INHALE THE CONTENTS OF 1 VIAL VIA NEBULIZER EVERY 6 HOURS NEEDED 360 mL 3 12/15/19 20 Active SPIRIVA HANDIHALER 18 MCG inhaled capsuleIndication s:Panlobular emphysema (H) INHALE THE CONTENTS OF 1 CAPSULE ONE TIME DAILY 90 capsule 01/08/20 20 Active oxyCODONE (ROXICODONE) 5 MG tabletIndications :Peripheral polyneuropathy,Ch ronic pain syndrome TAKE ONE TABLET BY MOUTH TWICE A DAY NEEDED 60 tablet 01/15/20 20 Active methimazole (TAPAZOLE) 5 MG tabletIndications :Hyperthyroidism, Hyperthyroidism TAKE 1 TABLET EVERY DAY 90 tablet 1 01/20/20 20 Active cyanocobalamin (VITAMIN B-12) 1000 MCG tabletIndications :Vitamin B12 deficiency without anemia TAKE 1 TABLET EVERY DAY 90 tablet 2 01/26/20 20 Active albuterol (PROAIR HFA/PROVENTIL HFA/VENTOLIN HFA) 108 (90 Base) MCG/ACT inhalerIndication s:Panlobular emphysema (H) INHALE 2 PUFFS INTO THE LUNGS EVERY 4 HOURS NEEDED FOR SHORTNESS OF BREATH, DYSPNEA OR WHEEZING 54 g 1 01/26/20 20 Active nitroGLYcerin (NITROLINGUAL) 0.4 MG/SPRAY sprayIndications: Hx of coronary artery disease FOR CHEST PAIN SPRAY 1 SPRAY UNDER TONGUE EVERY 5 MINUTES FOR 3 DOSES. IF SYMPTOMS PERSIST 5 MIN AFTER 1ST DOSE CALL 911 4.9 g 1 01/26/20 20 Active clotrimazole (MYCELEX) 10 MG lozengeIndication s:Stomatitis monilial SLOWLY DISSOLVE ONE MICHELLE IN MOUTH 5 TIMES DAILY FOR 6 DAYS 140 lozenge 3 02/16/20 20 Active omeprazole (PRILOSEC) [address] capsuleIndication s:Heartburn TAKE 1 CAPSULE EVERY DAY 90 capsule 2 02/23/20 20 Active Hospital, Clinic, or Other Facility Administered Medication Ordered Dose Route Frequency Start Date End Date Status lidocaine (XYLOCAINE) 2 % external gelIndications:Dysuria UR ONCE 10/19/2019 Ac tive lidocaine (XYLOCAINE) 2 % external gelIndications:Dysuria UR ONCE 10/19/2019 Ac tive Active Problems Problem Noted Date Diagnosed Date Retrograde ejaculation 10/16/2019 Assessment & Plan (10/16/2019 11:08 AM CDT): Urology investigating Benign prostatic hyperplasia with weak urinary s tream 10/16/2019 Assessment & Plan (10/16/2019 11:20 AM CDT): Urology appt next week Other insomnia 10/16/2019 Assessment & Plan (10/16/2019 11:22 AM CDT): Melatonin discussed Monoclonal gammopathy 08/19/2019 Dysuria 08/17/2019 Assessment & Plan (08/17/2019 10:06 AM CDT): Since Hydroxyzine, continues. BPH likely, nascent obstruction discussed, surgery discussed Weight loss 08/17/2019 Assessment & Plan (10/16/2019 11:07 AM CDT): W/u by oncology, methimazole adjusted downward, weight up Assessment & Plan (08/17/2019 10:00 AM CDT): Wt Readings from Last 3 Encounters: 08/17/19 93.4 kg (206 lb) 04/10/19 101.2 kg (223 lb) 02/27/19 99.8 kg (220 lb) Appetite returning with Topamax cessation. Broaden data base Avascular necrosis of right humeral head 020 Assessment & Plan (07/10/2019 7:33 AM CDT): Complains of shoulder pain. Imaged 2 years ago with possible loose body. He has topical and oral analgesics Arthritis of right acromioclavicular joint 07/08 Assessment & Plan (07/09/2019 2:34 PM CDT): Orthopedics steroid injection 2 years ago. He does not recall benefit or lack thereof. Recommended trial of repeat injection Coryza 05/29/2019 Assessment & Plan (05/29/2019 8:30 AM CDT): Cold a few days. Discussed self-isolation. Discussed COVID deterioration. Recommended ready telephone consult for same Stomatitis monilial 02/27/2019 Assessment & Plan (08/17/2019 10:01 AM CDT): Attributed to inhalers. Periodic antifungal Assessment & Plan (02/27/2019 1:42 PM CAKE WRINGER): Pt blames thyroid. ENT notes vocal cord atrophy, does not feel this causes pin. Cath 2018, follows with cardiology. Eval so far reassuring, unrevealing Avascular necrosis of bone of hip, left 10/17/19 19 Assessment & Plan (02/27/2019 1:44 PM CAKE WRINGER): He complains about pain. S/p coring procedure, bike every other day. Discussed chronic pain, options. Ortho involved Assessment & Plan (10/16/2018 9:04 AM CDT): Patient would like a referral for a walk-in tub as it is hard to get in and out of the shower and stand while showering. He is unable to use a shower chair d/t the size of his shower. Patient states he would like a surgical intervention to help with the pain. Saw Orthopedics in May, believe he is a good candidate for surgery. Discussed surgery, patient would like to pursue. Orthopedic referral placed. Actinic keratosis 10/16/2018 Assessment & Plan (10/16/2018 2:01 PM CDT): Discussed chapo history, rx Intrinsic eczema 09/04/2018 Heartburn 09/04/2018 Assessment & Plan (02/27/2019 8:41 AM CAKE WRINGER): Controlled, continue Omeprazole. Graves disease 06/30/2018 Assessment & Plan (10/16/2019 11:10 AM CDT): Endocrinology adjusted methimazole Assessment & Plan (07/09/2019 2:36 PM CDT): TSH Date Value Ref Range Status 04/10/2019 2.17 0.40 - 4.00 mU/L Final He remains on Tapazole Assessment & Plan (02/27/2019 1:43 PM CAKE WRINGER): Endocrinology, tapazole. TSH Date Value Ref Range Status 01/02/2019 3.79 0.40 - 4.00 mU/L Final Tinnitus, bilateral 05/09/2018 Assessment & Plan (10/16/2019 11:08 AM CDT): Reduced with new hearing aides Assessment & Plan (08/17/2019 10:00 AM CDT): Marked improvement with hearing aid, Pristiq cessation Iron deficiency 03/28/2018 History of tobacco abuse 08/21/2017 Assessment & Plan (10/16/2019 11:13 AM CDT): Now quit 3 years Peripheral polyneuropathy 08/21/2017 Assessment & Plan (10/16/2019 11:09 AM CDT): Opioid therapy Assessment & Plan (08/17/2019 10:04 AM CDT): Improved over previous. Observe with med cessation Assessment & Plan (12/01/2018 8:20 AM CDT): Discussed. Continue current regimen. Refill. Assessment & Plan (10/16/2018 1:59 PM CDT): Reduce topamax to 50. Duloxetine continues Continuous opioid dependence 05/21/2017 Assessment & Plan (10/16/2019 11:10 AM CDT): Stable use Assessment & Plan (08/17/2019 10:07 AM CDT): Encounter-Level CSA - 06/14/2017: Controlled Substance Agreement - Scan on 06/26/2017 5:39 PM: CONTROLLED SUBSTANCE AGREEMENT Patient-Level CSA: Controlled Substance Agreement - Opioid - Scan on 06/30/2018 11:28 AM today Assessment & Plan (05/29/2019 8:30 AM CDT): Stable continue Assessment & Plan (10/16/2018 2:00 PM CDT): Multiple pain generators Chronic pain syndrome 04/22/2017 Overview (01/12/2020): Patient is followed by Dr Brandon Kelly MD for ongoing prescription of pain medication. All refills should only be approved by this provider, or covering partner. Assessment & Plan (10/16/2019 11:11 AM CDT): Controlled substance agreement filed Assessment & Plan (02/27/2019 1:45 PM CAKE WRINGER): Discussed chapo history, current Rx Assessment & Plan (12/01/2018 8:58 AM CDT): Opioids Originally for pancreatitis, now neuropathy and arthritis. Topamax not tolerated at higher doses Primary osteoarthritis of ankle, unspecified lat erality 03/05/2017 Sleep-related hypoventilation 02/03/2016 Overview (12/09/2020): C PAP Replacing diagnoses that were inactivated after the 12/09/2020 regulatory import. Primary osteoarthritis of right foot 07/25/2015 Personal history of calcium pyrophosphate deposition disease (CPPD) 07/04/2015 Assessment & Plan (10/16/2019 11:11 AM CDT): Colchicine therapy Assessment & Plan (08/17/2019 10:03 AM CDT): Colchicine for this Assessment & Plan (05/29/2019 8:29 AM CDT): No synovitis. Appears effective Synovitis of foot 06/14/2015 Panlobular emphysema 06/13/2015 Assessment & Plan (10/16/2019 11:09 AM CDT): NUR, seems improved subjectively. Assessment & Plan (08/17/2019 10:05 AM CDT): No Pulm symptoms. Stomatitis responsive to clotrimazole Assessment & Plan (07/09/2019 2:36 PM CDT): He continues to remain smoke-free and compliant with his medications Assessment & Plan (05/29/2019 8:29 AM CDT): Compliant, remains tobacco free. Assessment & Plan (02/27/2019 1:42 PM CAKE WRINGER): Symptoms free at moment. Now tobacco free almost 2 years Assessment & Plan (12/01/2018 8:55 AM CDT): No symptoms, immunizations UTD, no smoking Carpal tunnel syndrome of right wrist 01/31/2015 Lesion of right ulnar nerve 01/31/2015 REGINALDO (obstructive sleep apnea) 11/23/2014 Assessment & Plan (10/16/2019 11:23 AM CDT): Complex sleep-disordered breathing with central apnea. No CPAP Vitamin B12 deficiency without anemia 08/10/2014 Overview (01/10/2015): Diagnosis updated by automated process. Provider to review and confirm. Peripheral vascular disease 02/19/2014 Overview (02/19/2018): Right femoral endarterectomy with pericardial patch angioplasty 2012 Assessment & Plan (12/01/2018 8:55 AM CDT): S/p Angioplasty, symptoms stable Hypoxia 01/19/2014 Assessment & Plan (10/16/2019 11:09 AM CDT): Intermittent O2 at home Seasonal allergic rhinitis 01/08/2014 Assessment & Plan (08/17/2019 10:03 AM CDT): Stop claritin Assessment & Plan (12/01/2018 8:54 AM CDT): Discussed. . Refill claritin. Ischemic cardiomyopathy 08/19/2013 Assessment & Plan (10/16/2018 2:00 PM CDT): Discussed. . Nitroglycerin spray rx sent. Edema 08/19/2013 Coronary artery disease invo lving stebbins coronary artery of stebbins heart without angina pectoris 08/19/2013 Overview (02/19/2018): cardiac cath 08/2017: obtuse marginal is chronically occluded; CABG 1996: ADRIENNE to RCA, sequential ARRIAZA to D1, D2 & distal LAD, SVG to OM Assessment & Plan (08/17/2019 10:06 AM CDT): Asymptomatic. Cardiology in October GERD (gastroesophageal reflux disease) 4 Neck pain 07/12/2013 Cervicalgia 07/03/2013 Onychomycosis 06/09/2013 HTN, goal below 140/90 05/25/2013 Assessment & Plan (08/17/2019 10:05 AM CDT): BP Readings from Last 1 Encounters: 08/17/19 117/71 continue Assessment & Plan (02/27/2019 8:44 AM CAKE WRINGER): Controlled, continue Toprol XL 25mg. Hyperlipidemia LDL goal <70 02/17/2013 Assessment & Plan (02/27/2019 8:40 AM CAKE WRINGER): Treated, continue Rosuvastatin 40mg. Recurrent major depressive disorder, in partial remission 01/28/2013 Assessment & Plan (10/16/2019 11:08 AM CDT): Did not tolerate antidepressants, declines further interventions Assessment & Plan (07/09/2019 2:37 PM CDT): He is feeling depressed with current social distancing. Duloxetine previously tried poorly tolerated. His insurance requires step therapy with duloxetine and venlafaxine Assessment & Plan (12/01/2018 8:56 AM CDT): PHQ-9 score: PHQ-9 SCORE 09/04/2018 PHQ-9 Total Score - PHQ-9 Total Score MyChart - PHQ-9 Total Score 8 partial remission Abdominal aortic aneurysm 01/21/2013 Overview (07/25/2015): Endovascular repair Hx of coronary artery disease 01/21/2013 Assessment & Plan (02/27/2019 1:42 PM CAKE WRINGER): Chronic non cardiac chest pain. Cardiology last 10/2018. Please refer to that note Assessment & Plan (12/01/2018 8:57 AM CDT): Recent cardiology visit. No additional interventions Resolved Problems Problem Noted Date Diagnosed Date Resolved Date Hyperuricemia 08/17/2019 08/17/2019 Hot flash in male 08/17/2019 10/16/2019 Assessment & Plan (08/17/2019 10:05 AM CDT): With pristiq cessation, weight loss. Broaden data base Special screening for malign ant neoplasm of prostate 08/17/2019 08/17/2019 Assessment & Plan (08/17/2019 10:02 AM CDT): Likely BPH. Urinary hesitancy, decreased stream. Started with hydroxyzine Gynecomastia 03/27/2018 05/29/2019 Chronic obstructive pulmonar y disease, unspecified COPD type 12/25/2016 08/21/2017 Health Detention 03/09/2015 08/26/2023 Overview (09/07/2015): Status: Closed Sales Host: Laurence Steele RN [phone] See Letters for HC Care Plan Date: September 07, 2015 COPD exacerbation 03/06/2015 06/13/2015 Chronic obstructive pulmonar y disease with acute exacerbation 03/05/2015 04/07/2015 Chronic pain 12/21/2014 04/22/2017 Overview (05/14/2016): Tapering off opioids MAPS Smoker 11/23/2014 03/05/2017 Mastodynia 07/15/2014 08/17/2019 Dysfunction of eustachian tube 02/19/2014 05/14/2016 Shortness of breath 08/19/2013 06/13/19 16 Low back pain 07/24/2013 08/21/2013 Overview (01/10/2015): Diagnosis updated by automated process. Provider to review and confirm. COPD (chronic obstructive pulmonary disease) 4 04/07/2015 Overview (05/03/2014): O2 pulmonary medicine Chronic pancreatitis 02/17/2013 017 History of Shingles 01/28/2013 07/19/19 14 History of colonic polyps 01/28/2013 Chronic abdominal pain 01/21/201305/28 Overview (05/21/2017): MAPS no longer Hx of cholecystectomy 01/21/20132013 [...] Sex Assigned at Male 03/30/2018 7:28 AM CAKE WRINGER Legal Sex Male 12:44 PM CDT Gender Identity Male 03/30/2018 7:28 AM CAKE WRINGER Sexual Orientation Straight 02/18/2018 9: 07 AM CAKE WRINGER Last Filed Vital Signs Vital Sign Reading [...] of 2 - Risk 2-dose series) 1964 ANNUAL REVIEW OF HM ORDERS 08/16/2020 08/17/2019, CONTROLLED SUBSTANCE AGREEMENT FOR CHRONIC PAIN MANAGEMENT 08/16/2020 08/17/2019 MEDICARE ANNUAL WELLNESS VISIT 08/16/2020 08/17/2019, 09/15/2013 URINE DRUG SCREEN 08/16/2020 08/17/2019, , 06/14/2017, Additional history exists CMP 09/06/2020 09/07/2019, 0 10/2019, 09/04/2018, Additional history exists BRITTNEY ASSESSMENT 10/15/2020 10/16/2019, 0 10/2019, 07/09/2019, Additional history exists PHQ-9 10/15/2020 10/16/2019, 0 10/2019, 07/09/2019, Additional history exists FALL RISK ASSESSMENT 11/24/2020 11/25/2019, 10/16/2019, 09/25/2018, Additional history exists RSV VACCINE (1 - 1-dose 75+ series) 2021 BMP 07/25/2023 01/24/2023, 10/09, 09/07/2019, Additional history exists LIPID 11/01/2023 10/31/2018, 08/10, 10/02/2016, Additional history exists COVID-19 Vaccine ( season) 2023 12/25/2022, 10/15/2022, 11/28/2021, Additional history exists INFLUENZA VACCINE (#1) 2023 , 11/15/2021, 01/11/2021, Additional history exists URIC ACID 02/01/2024 01/31/2023, 060 10/2019, 02/22/2017, Additional history exists LUNG CANCER [...] (Cologuard) Discontinued Medical Devices Implanted Type Area Pastry Decorator Device Identifier Shelf Expiration Date Model / Serial / Lot Mesh Ventralex Hernia 2.5 [employer] Med W/Strap [id number] Implanted:Qty: 1 on 04/16/2013 by Hans Schultz MD at [facility] N/A: Umbilical 01/02/2015 [id number] / / [id number] Procedures Procedure Name Priority Date/Time Associated Diagnosis Comments URIC ACID STAT 01/31/2023 8:25 AM CAKE WRINGER Hematuria, unspecified BASIC METABOLIC PANEL Routine 01/24/2023 5:45 AM CAKE WRINGER Aftercare following joint replacement surgery CT CHEST/ABDOMEN/PELVIS [...] artery disease COLONOSCOPY Routine 02/12/2018 9:47 AM CAKE WRINGER SPIROMETRY - HIM SCAN Routine 12/20/2017 HEPATITIS C ANTIBODY Routine 07/25/2015 9:30 AM CDT Need for hepatitis C screening test from Last 3 Months or Most Recently Relevant to Health Maintenance Results * Uric acid (01/31/2023 8:25 AM CAKE WRINGER) Uric Acid 4.0 3.4 - 7.0 mg/dL 01/31/2023 11:18 AM CAKE WRINGER [facility] Blood BLOOD SPECIMEN / Unknown Client Draw / Unknown 01/31/2023 8:25 AM CAKE WRINGER 01/31/2023 10:46 AM CAKE WRINGER us Jazmin Alvarado MD LAB - BLOOD ORDERABLES Final R esult [facility] [address] [facility], [address] [address], [facility] [phone] * Basic metabolic panel (01/24/2023 5:45 AM CAKE WRINGER) Pathologist [facility] Sodium 138 135 - 145 mmol/L 01/24/2023 10:21 AM CAKE WRINGER [facility] Comment:Reference intervals for this test were updated on 12/04/2022 to more accurately reflect our healthy population. There may be differences in the flagging of prior results with similar values performed with this method. Interpretation of those prior results can be made in the context of the updated reference intervals. Potassium 4.1 3.4 - 5.3 mmol/L 01/24/2023 10:21 AM CAKE WRINGER [facility] Chloride 104 98 - 107 mmol/L 01/24/2023 10:21 AM CAKE WRINGER [facility] Carbon Dioxide (CO2) 24 22 - 29 mmol/L 01/24/2023 10:21 AM CAKE WRINGER [facility] Anion Gap 10 7 - 15 mmol/L 01/24/2023 10:21 AM CAKE WRINGER [facility] Urea Nitrogen 15.2 8.0 - 23.0 mg/dL 01/24/2023 10:21 AM CAKE WRINGER [facility] Creatinine 0.87 0.67 - 1.17 mg/dL 01/24/2023 10:21 AM CAKE WRINGER [facility] GFR Estimate 89 >60 mL/min/1. 73m2 01/24/2023 10:21 AM CAKE WRINGER [facility] Calcium 9.4 8.8 - 10.2 mg/dL 01/24/2023 10:21 AM CAKE WRINGER [facility] Glucose 88 70 - 99 mg/dL 01/24/2023 10:21 AM CAKE WRINGER [facility] Blood STRUCTURE OF LEFT UPPER LIMB / Unknown Venipuncture / Unknown 01/24/2023 5:45 AM CAKE WRINGER 01/24/2023 8:02 AM CAKE WRINGER us Jazmin Alvarado MD LAB - BLOOD ORDERABLES Final R esult [facility] [address] [facility], [address] [address], [facility] [phone] * CT Chest/Abdomen/Pelvis w Contrast (09/10/2019 9:34 [...] Consider 12 month follow-up. JULIET LISA MD us Migue Pam Browne MD IMG CT ORDERABLES Final Re sult * (ABNORMAL) Comprehensive metabolic panel (09/07/2019 12:48 PM CDT) Sodium 139 133 - 144 mmol/L 09/07/2019 1:20 PM [facility] Potassium 3.6 3.4 - 5.3 mmol/L 09/07/2019 1:20 PM [facility] Chloride 107 94 - 109 mmol/L 09/07/2019 1:20 PM [facility] Carbon Dioxide 26 20 - 32 mmol/L 09/07/2019 1:28 PM [facility] Anion Gap 6 3 - 14 mmol/L 09/07/2019 1:28 PM [facility] Glucose 106(H) 70 - 99 mg/dL 09/07/2019 1:28 PM [facility] Urea Nitrogen 12 7 - 30 mg/dL 09/07/2019 1:28 PM [facility] Creatinine 0.79 0.66 - 1.25 mg/dL 09/07/2019 1:28 PM [facility] GFR Estimate 89 >60 mL/min/{1. 73_m2} 09/07/2019 1:28 PM [facility] Comment: Non GFR Calc Starting 02/25/2018, serum creatinine based estimated GFR (eGFR) will be calculated using the Chronic Kidney Disease Epidemiology Collaboration (CKD-EPI) equation. GFR Estimate If Black >90 >60 mL/min/{1. 73_m2} 09/07/2019 1:28 PM [facility] Comment: GFR Calc Starting 02/25/2018, serum creatinine based estimated GFR (eGFR) will be calculated using the Chronic Kidney Disease Epidemiology Collaboration (CKD-EPI) equation. Calcium 9.0 8.5 - 10.1 mg/dL 09/07/2019 1:28 PM [facility] Bilirubin Total 0.8 0.2 - 1.3 mg/dL 09/07/2019 1:30 PM [facility] Albumin 3.7 3.4 - 5.0 g/dL 09/07/2019 1:30 PM CDT [facility] Protein Total 7.2 6.8 - 8.8 g/dL 09/07/2019 1:30 PM CDT [facility] Alkaline Phosphatase 101 40 - 150 U/L 09/07/2019 1:30 PM CDT [facility] ALT 25 0 - 70 U/L 09/07/2019 1:30 PM CDT [facility] AST 19 0 - 45 U/L 09/07/2019 1:30 PM CDT [facility] Blood specimen (specimen) 09/07/2019 12:48 PM CDT 09/07/2019 12:54 PM CDT us Migue Browne MD LAB - BLOOD ORDERABLES Fin al Result [facility] [address] [place] [id number], [facility] [phone] * Drug Screen Comprehensive, Urine w/o Reported Meds (Pain Care Package) (08/17/2019 9:49 AM CDT) Comprehen Drug Analysis UR FINAL 08/20/2019 4:37 PM CDT [facility] Comment: (Note) COMPREHENSIVE DRUG ANALYSIS,UR Test [...] consultation, please call . Analysis performed by [employer] [employer] [place] [address] Urine specimen (specimen) 08/17/2019 9:49 AM CDT 08/17/2019 9:50 AM CDT us Wesley Dugan MD LAB - URINE ORDERABLES Final Re sult Performing Organization Address City/State/[facility] Co de Phone Number [facility] [id number] [place] [phone] * (ABNORMAL) Lipid Profile (10/31/2018 7:23 AM CDT) Cholesterol 136 <200 mg/dL 10/31/2018 7:55 AM CDT [facility] Triglycerides 113 <150 mg/dL 10/31/2018 7:55 AM CDT [facility] Comment:Fasting specimen HDL Cholesterol 36(L) >39 mg/dL 9 7:58 AM CDT [facility] LDL Cholesterol Calculated 77 <100 mg/dL 10/31/2018 7:58 AM CDT [facility] Comment:Desirable: <100 mg/d l Non HDL Cholesterol 100 <130 mg/dL 10/31/2018 7:58 AM CDT [facility] Blood specimen (specimen) 10/31/2018 7:23 AM CDT 10/31/2018 7:29 AM CDT Miguel Culver PA-C LAB - BLOOD ORDERABLES Final Result [facility] [address] [place] [address], [facility] [phone] [facility] [address] [place] [address], [facility] [phone] * COLONOSCOPY (02/12/2018 9:47 AM CAKE WRINGER) COLONOSCOPY [facility] Patient Name: Butch Nieves ?Procedure [...] and ?oxygen saturations were monitored continuously. The ?AC [employer]co Pediatric Colonoscope, Model # [id number]-H190DL, ?[place] # [id number], SN # [id number] was introduced through ?the anus and advanced [...] Procedure Code(s): ? --- Professional --- ? 89871, Colonoscopy, flexible; with removal of tumor(s), polyp(s), or ? other lesion(s) by snare technique Diagnosis Code(s): ? --- Professional --- ? D12.3, Benign neoplasm of transverse colon (hepatic flexure or splenic ? flexure) ? D12.2, Benign neoplasm of ascending colon CPT copyright 2017 [employer]. All rights reserved. The codes documented in this report are preliminary and upon electric motorman review may be revised to meet current compliance requirements. Electronically signed by Joe Dent MD __ Joe Dent MD 02/12/2018 10:36:09 AM I was physically present for the entire viewing portion of the exam. Joe Dent MD Number of Addenda: 0 Note Initiated On: 02/12/2018 9:47 AM MRN: ?[id number] Procedure Date: ? 02/12/2018 9:47:22 AM Scope Withdrawal Time: 0 hours 6 minutes 17 seconds Total Procedure Duration: 0 hours 14 minutes 28 seconds Estimated Blood Loss: ? Scope In: 10:18:46 AM Scope Out: 10:33:14 AM RADIOLOGY RESULTS 02/12/2018 9:47 AM CAKE WRINGER us Joe Dent MD PROCEDURES Final Result RADIOLOGY RESULTS * Spirometry - HIM Scan (12/20/2017) Narrative Arin Berkowitz - 12/20/2017 [facility]-Progress note us Provider Outside PFT ORDERABLES Final Result * Hepatitis C antibody (07/25/2015 9:30 AM CDT) Hepatitis C Antibody Nonreactive Assay performance characteristics have not been established for newborns, infants, and children NR [facility] Blood specimen (specimen) 07/25/2015 9:30 AM CDT 07/25/2015 9:31 AM CDT us Wesley Dugan MD LAB - BLOOD ORDERABLES Final Re sult [facility] [address] [place] [address] from Last 3 Months or Most Recently Relevant to Health Maintenance Insurance [facility] MEDICARE ADVANTAGE [facility] MEDICARE ADVANTAGE Advance Directives For more information, please contact: [phone] Documents on File Type Date Recorded Patient Client Resource Specialist Expl anation Advance Directives and Living Will 11/15/2017 2:53 PM Health Care Directiv e 11/12/17 * Full Code (Latest Code Status on File) Date Activated Date Inactivated Comments 03/06/2015 9:26 AM 04/01/2018 1:20 PM * Full Code Date Activated Date Inactivated Comments 03/05/2015 6:19 PM 03/06/2015 9:26 AM Care Teams Chemical Blender Relationship Specialty [place] [address] [place] [address] PCP - General Family Practice 03/14/21
--- OUTSIDE RECORDS SUMMARY | 2024-01-02 08:37 | XMS_ITS | Encounter Summary ---
Author Organization [place] Address [address] [place] [address] Care Team Providers Care Quality Worker Name Role Phone Wesley Dugan MD Primary Care Provider [phone] Wesley Dugan MD Unavailable [phone] Wesley Dugan MD Unavailable [phone] Encounter Details Date Type Department Care Team (Late st Contact Info) Description 11/20/2021 [facility] Medical Advice [address] [address] Yael Bardales MA Social History [...] Assigned at Male 03/30/2018 7:28 AM BUFFING MACHINE TENDER Legal Sex Male 12:44 PM CDT Gender Identity Male 03/30/2018 7:28 AM BUFFING MACHINE TENDER Sexual Orientation Straight 02/18/2018 9: 07 AM BUFFING MACHINE TENDER documented as of this encounter Plan of Treatment Not on file documented as of this encounter Visit Diagnoses Not on filedocumented in this encounter Additional Health Concerns Assessment Noted Time PHQ-9 Depression Total Score: 7 10/16/19 20 7:11 AM CDT documented as of this encounter Care Teams Quality Worker Relationship Specialty [place] [address] [place] [address] PCP - General Family Practice 03/14/21 [place] [address] [place] [address] Assigned PCP 09/19/14 02/23/22 [place] [address] [place] [address] Assigned PCP 05/05/22 10/19/22 documented as of this encounter
--- OUTSIDE RECORDS SUMMARY | 2024-01-02 08:37 | XMS_ITS | Encounter Summary ---
Author Organization [place] Address [address] [place] [address] Care Team Providers Care Collar Cutter Name Role Phone Wesley Dugan MD Primary Care Provider Wesley Dugan MD Unavailable [phone] Ella Matias PA-C Unavailable Santi Heller MD Unavailable Tato Mallory MD Unavailable Chirag Taylor MD Primary Care Provider + Miguel Culver PA-C Unavailable [phone] Wesley Dugan MD Unavailable [phone] Encounter Details Date Type Department Care [...] Sex Assigned at Male 03/30/2018 7:28 AM LICENSED WEIGHER Legal Sex Male 12:44 PM CDT Gender Identity Male 03/30/2018 7:28 AM LICENSED WEIGHER Sexual Orientation Straight 02/18/2018 9: 07 AM LICENSED WEIGHER documented as of this encounter Plan of Treatment Not on file documented as of this encounter Visit Diagnoses Not on filedocumented in this encounter Additional Health Concerns Assessment Noted Time PHQ-9 Depression Total Score: 7 10/16/19 20 7:11 AM CDT documented as of this encounter Care Teams Collar Cutter Relationship Specialty [place] [address] [place] [address] PCP - General Family Practice 03/14/21 [place] [address] [address] PCP - General 03/15/20 03/13/21 [place] [address] [place] [address] Assigned PCP 09/19/14 02/23/22 Ella Matias PA-C [address] [place] [address] [id number] Assigned Cancer Care Provider 01/01/20 03/18/21 Santi Heller MD [address] [address] Assigned Surgical Provider 01/01/2003/01 [place] [address] 164[address] Assigned Musculoskeletal Provider 01/01/20 07/23/20 Miguel Culver PA-C [address] [place], [place] [address] Assigned Heart and Vascular Provider 05/25/20 04/29/21 [place] [address] [place] [address] Assigned PCP 05/05/22 10/19/22 documented as of this encounter
--- OUTSIDE RECORDS SUMMARY | 2024-01-02 08:37 | XMS_ITS | Encounter Summary ---
Author Organization [place] Address [address] [place] [address]. [place] [address] Care Team Providers Care Telecom Sales Consultant Name Role Phone Wesley Dugan MD Primary Care Provider [phone] Wesley Dugan MD Unavailable [phone] Nela Sheth RN Unavailable Unavailable Ella Matias PA-C Unavailable Santi Heller MD Unavailable [phone] Aashish Leone MD Unavailable Unavail able Tato Mallory MD Unavailable Chirag Taylor MD Primary Care Provider + Miguel Culver PA-C Unavailable Wesley Dugan MD Unavailable [phone] Reason for Visit * Reason Comments Medication Refill Encounter Details Date Type Department Care Team (Late st Contact Info) Description 03/10/2020 Refill [facility] [address] [place] [address] [place] [address] [place], [place] [id number] Medication Refill Social History Tobacco Use Types Packs/Day Years Used Date Smoking Tobacco: Former Cigarettes 0 1958 - 2016 Smokeless Tobacco: Never Alcohol Use Standard Drinks/Week Comments Not Currently 0 (1 standard drink = 0.6 oz pur e alcohol) PHQ-2 Answer Date Recorded PHQ-2 Score 2 10/16/2019 Sex and Gender Information Value Date Recorded Sex Assigned at Male 03/30/2018 7:28 AM MANAGER CLINIC Legal Sex Male 12:44 PM CDT Gender Identity Male 03/30/2018 7:28 AM MANAGER CLINIC Sexual Orientation Straight 02/18/2018 9: 07 AM MANAGER CLINIC documented as of this encounter Miscellaneous Notes * Telephone Encounter - Nela Sheth RN - 03/15/2020 3:34 PM CST PCP changes to Dr. Lane Taylor @ [facility] in [place], [place]. Pt's future rx refills to be obtained from pt's PCP for insurance purposes. Nela Sheth, Registered Nurse, Patient Advocate [facility] * Telephone Encounter - Wesley Dugan MD - 03/14/2020 5:12 PM CST Due to insurance, changed to Sienna Taylor [facility] Please change PCP Refills to new PCP Wesley Dugan MD GER CLIN[facility] * Telephone Encounter - Jazmin Rothman RN - 03/14/2020 8:07 AM CST Routing refill request to provider for review/approval because: Drug not active on patient's medication list Not on med list Jazmin Rothman RN, BSN Message handled by CLINIC NURSE. [facility] documented in this encounter Plan of Treatment Not on file documented as of this encounter Visit Diagnoses Not on filedocumented in this encounter Additional Health Concerns Assessment Noted Time PHQ-9 Depression Total Score: 7 10/16/19 7:11 AM CDT documented as of this encounter Care Teams Telecom Sales Consultant Relationship Specialty [place] [address] [place] [address] PCP - General Family Practice 03/14/21 [place] [address] [address] PCP - General 03/15/20 03/13/21 [place] [address] [place] [address] Assigned PCP 09/19/14 02/23/22 Nela Sheth, JARON Personal Advocate & Liaison (PAL) Family Practice 10/13/19 03/14/20 Ella Matias PA-C [address] [place] [address] Assigned Cancer Care Provider 01/01/20 03/18/21 Santi Heller MD [address] [address] Assigned Surgical Provider 01/01/2003/01 Aashish Leone MD Assigned Heart and Vascular Provider 01/01/20 05/07/20 [place] [address] 7026[address] Assigned Musculoskeletal Provider 01/01/20 07/23/20 Miguel Culver PA-C [address] [place], [place] [address] Assigned Heart and Vascular Provider 05/25/20 04/29/21 [place] [address] [place] [address] Assigned PCP 05/05/22 10/19/22 documented as of this encounter
--- OUTSIDE RECORDS SUMMARY | 2024-01-02 08:37 | XMS_ITS | Referral Summary ---
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 ENT notes vocal cord atrophy, does not feel this causes pin. Cath 2018, follows with cardiology. Eval so far reassuring, unrevealing Avascular necrosis of bone of hip, left 10/17/19 19 Assessment & Plan (02/27/2019 1:44 PM LATHER APPRENTICE): He complains about pain. S/p coring procedure, [...] 09/04/2018 Assessment & Plan (02/27/2019 8:41 AM LATHER APPRENTICE): Controlled, continue Omeprazole. Graves disease 06/30/2018 Assessment & Plan (10/16/2019 11:10 AM CDT): Endocrinology adjusted methimazole Assessment & Plan (07/09/2019 2:36 PM CDT): TSH Date Value Ref Range Status 04/10/2019 2.17 0.40 - 4.00 mU/L Final He remains on Tapazole Assessment & Plan (02/27/2019 1:43 PM LATHER APPRENTICE): Endocrinology, tapazole. TSH Date Value Ref Range [...] filed Assessment & Plan (02/27/2019 1:45 PM LATHER APPRENTICE): Discussed chapo history, current Rx Assessment & [...] free. Assessment & Plan (02/27/2019 1:42 PM LATHER APPRENTICE): Symptoms free at moment. Now tobacco free [...] Edema 08/19/2013 Coronary artery disease invo lving table mountain coronary artery of table mountain heart without angina pectoris 08/19/2013 Overview (02/19/2018): [...] continue Assessment & Plan (02/27/2019 8:44 AM LATHER APPRENTICE): Controlled, continue Toprol XL 25mg. Hyperlipidemia LDL goal <70 02/17/2013 Assessment & Plan (02/27/2019 8:40 AM LATHER APPRENTICE): Treated, continue Rosuvastatin 40mg. Recurrent major depressive [...] 01/21/2013 Assessment & Plan (02/27/2019 1:42 PM LATHER APPRENTICE): Chronic non cardiac chest pain. Cardiology last [...] disease, unspecified COPD type 12/25/2016 08/21/2017 [facility] 03/09/2015 08/26/2023 Overview (09/07/2015): Status: Closed Harness Repairer: Laurence Steele RN [phone] See Letters for HC Care Plan Date: [...] Sex Assigned at Male 03/30/2018 7:28 AM LATHER APPRENTICE Legal Sex Male 12:44 PM CDT Gender Identity Male 03/30/2018 7:28 AM LATHER APPRENTICE Sexual Orientation Straight 02/18/2018 9: 07 AM LATHER APPRENTICE Last Filed Vital Signs Vital Sign Reading [...] on file Medical Devices Implanted Type Area Manager Oracle Database Device Identifier Shelf Expiration Date Model / Serial / Lot Mesh Ventralex Hernia 2.5 [place] Med W/Strap [id number] Implanted:Qty: 1 on 04/16/2013 by Hans Schultz MD at [facility] N/A: Umbilical 01/02/2015 [id number] / / [id number] Procedures Procedure Name Priority Date/Time Associated Diagnosis Comments URIC ACID STAT 01/31/2023 8:25 AM LATHER APPRENTICE Hematuria, unspecified BASIC METABOLIC PANEL Routine 01/24/2023 5:45 AM LATHER APPRENTICE Aftercare following joint replacement surgery CT CHEST/ABDOMEN/PELVIS [...] artery disease COLONOSCOPY Routine 02/12/2018 9:47 AM LATHER APPRENTICE SPIROMETRY - HIM SCAN Routine 12/20/2017 HEPATITIS C ANTIBODY Routine 07/25/2015 9:30 AM CDT Need for hepatitis C screening test from Last 3 Months or Most Recently Relevant to Health Maintenance Results * Uric acid (01/31/2023 8:25 AM LATHER APPRENTICE) Uric Acid 4.0 3.4 - 7.0 mg/dL 01/31/2023 11:18 AM LATHER APPRENTICE [facility] Blood BLOOD SPECIMEN / Unknown Client Draw / Unknown 01/31/2023 8:25 AM LATHER APPRENTICE 01/31/2023 10:46 AM LATHER APPRENTICE us Jazmin Alvarado MD LAB - BLOOD ORDERABLES Final R esult [facility] Core Lab [address] [facility] [address], [address] [place] [address], [place] [phone] * Basic metabolic panel (01/24/2023 5:45 AM LATHER APPRENTICE) Sodium 138 135 - 145 mmol/L 01/24/2023 10:21 AM LATHER APPRENTICE [facility] Comment:Reference intervals for this test were updated on 12/04/2022 to more accurately reflect our healthy population. There may be differences in the flagging of prior results with similar values performed with this method. Interpretation of those prior results can be made in the context of the updated reference intervals. Potassium 4.1 3.4 - 5.3 mmol/L 01/24/2023 10:21 AM LATHER APPRENTICE [facility] Chloride 104 98 - 107 mmol/L 01/24/2023 10:21 AM LATHER APPRENTICE [facility] Carbon Dioxide (CO2) 24 22 - 29 mmol/L 01/24/2023 10:21 AM LATHER APPRENTICE [facility] Anion Gap 10 7 - 15 mmol/L 01/24/2023 10:21 AM LATHER APPRENTICE [facility] Urea Nitrogen 15.2 8.0 - 23.0 mg/dL 01/24/2023 10:21 AM LATHER APPRENTICE [facility] Creatinine 0.87 0.67 - 1.17 mg/dL 01/24/2023 10:21 AM LATHER APPRENTICE [facility] GFR Estimate 89 >60 mL/min/1. 73m2 01/24/2023 10:21 AM LATHER APPRENTICE [facility] Calcium 9.4 8.8 - 10.2 mg/dL 01/24/2023 10:21 AM LATHER APPRENTICE [facility] Glucose 88 70 - 99 mg/dL 01/24/2023 10:21 AM LATHER APPRENTICE [facility] Blood STRUCTURE OF LEFT UPPER LIMB / Unknown Venipuncture / Unknown 01/24/2023 5:45 AM LATHER APPRENTICE 01/24/2023 8:02 AM LATHER APPRENTICE us Jazmin Alvarado MD LAB - BLOOD ORDERABLES Final R esult [facility] [place] Core Lab [address] [facility], [address] [place] [address], [facility] [phone] * CT Chest/Abdomen/Pelvis w Contrast (09/10/2019 9:34 [...] month follow-up. JULIET LISA MD us Migue Browne MD IMG CT ORDERABLES Final Re sult * (ABNORMAL) Comprehensive metabolic panel (09/07/2019 12:48 PM CDT) Sodium 139 133 - 144 mmol/L 09/07/2019 1:20 PM [facility] Potassium 3.6 3.4 - 5.3 mmol/L 09/07/2019 1:20 PM [facility] Chloride 107 94 - 109 mmol/L 09/07/2019 1:20 PM [facility] Carbon Dioxide 26 20 - 32 mmol/L 09/07/2019 1:28 PM [facility] Anion Gap 6 3 - 14 mmol/L 09/07/2019 1:28 PM [facility] Glucose 106(H) 70 - 99 mg/dL 09/07/2019 1:28 PM [facility] Urea Nitrogen 12 7 - 30 mg/dL 09/07/2019 1:28 PM [facility] Creatinine 0.79 0.66 - 1.25 mg/dL 09/07/2019 1:28 PM [facility] GFR Estimate 89 >60 mL/min/{1. 73_m2} 09/07/2019 1:28 PM [facility] Comment: Non GFR Calc Starting 02/25/2018, serum creatinine based estimated GFR (eGFR) will be calculated using the Chronic Kidney Disease Epidemiology Collaboration (CKD-EPI) equation. GFR Estimate If Black >90 >60 mL/min/{1. 73_m2} 09/07/2019 1:28 PM CDT [facility] Comment: GFR Calc Starting 02/25/2018, serum creatinine based estimated GFR (eGFR) will be calculated using the Chronic Kidney Disease Epidemiology Collaboration (CKD-EPI) equation. Calcium 9.0 8.5 - 10.1 mg/dL 09/07/2019 1:28 PM CDT [facility] Bilirubin Total 0.8 0.2 - 1.3 mg/dL 09/07/2019 1:30 PM CDT [facility] Albumin 3.7 3.4 - 5.0 g/dL 09/07/2019 1:30 PM CDT [facility] Protein Total 7.2 6.8 - 8.8 g/dL 09/07/2019 1:30 PM CDT [facility] Alkaline Phosphatase 101 40 - 150 U/L 09/07/2019 1:30 PM CDT [facility] ALT 25 0 - 70 U/L 09/07/2019 1:30 PM CDT [facility] AST 19 0 - 45 U/L 09/07/2019 1:30 PM CDT [facility] Blood specimen (specimen) 09/07/2019 12:48 PM CDT 09/07/2019 12:54 PM CDT Migue Browne MD LAB - BLOOD ORDERABLES Fin al Result [facility] [address] [place] [address], [facility] [phone] * Drug Screen Comprehensive, Urine w/o Reported Meds (Pain Care Package) (08/17/2019 9:49 AM CDT) Comprehen Drug Analysis UR FINAL 08/20/2019 4:37 PM CDT [facility] Comment: (Note) COMPREHENSIVE DRUG ANALYSIS,UR [...] consultation, please call . Analysis performed by [employer] [place] [address] Urine specimen (specimen) 08/17/2019 9:49 AM CDT 08/17/2019 9:50 AM CDT us Wesley Dugan MD LAB - URINE ORDERABLES Final Re sult Performing Organization Address [facility] Co de Phone Number [facility] [address] [place] [address] * (ABNORMAL) Lipid Profile (10/31/2018 7:23 AM CDT) Cholesterol 136 <200 mg/dL 10/31/2018 7:55 AM CDT [facility] Triglycerides 113 <150 mg/dL 10/31/2018 7:55 AM CDT [facility] Comment:Fasting specimen HDL Cholesterol 36(L) >39 mg/dL 9 7:58 AM CDT [facility] LDL Cholesterol Calculated 77 <100 mg/dL 10/31/2018 7:58 AM CDT [facility] Comment:Desirable: <100 mg/d l Non HDL Cholesterol 100 <130 mg/dL 10/31/2018 7:58 AM CDT [facility] Blood specimen (specimen) 10/31/2018 7:23 AM CDT 10/31/2018 7:29 AM CDT us Miguel Culver PA-C LAB - BLOOD ORDERABLES Final Result [facility] [address] [place] [address], [facility] [phone] [facility] [address] [place] [address], [facility] [phone] * COLONOSCOPY (02/12/2018 9:47 AM LATHER APPRENTICE) COLONOSCOPY [facility] Patient Name: Butch Nieves ?Procedure [...] # [id number], ?[place] # [id number], SN # [id number] was introduced through ?the anus and advanced [...] Procedure Code(s): ? --- Professional --- ? [address], Colonoscopy, flexible; with removal of tumor(s), polyp(s), or ? other lesion(s) by snare technique Diagnosis Code(s): ? --- Professional --- ? D12.3, Benign neoplasm of transverse colon (hepatic flexure or splenic ? flexure) ? D12.2, Benign neoplasm of ascending colon CPT copyright 2017 [employer]. All rights reserved. The codes documented in this report are preliminary and upon icd 9 coder review may be revised to meet current compliance requirements. Electronically signed by Joe Dent MD __ Joe Dent MD 02/12/2018 10:36:09 AM I was physically present for the entire viewing portion of the exam. Joe Dent MD Number of Addenda: 0 Note Initiated On: 02/12/2018 9:47 AM MRN: ?[id number] Procedure Date: ? 02/12/2018 9:47:22 AM Scope Withdrawal Time: 0 hours 6 minutes 17 seconds Total Procedure Duration: 0 hours 14 minutes 28 seconds Estimated Blood Loss: ? Scope In: 10:18:46 AM Scope Out: 10:33:14 AM RADIOLOGY RESULTS 02/12/2018 9:47 AM LATHER APPRENTICE us Joe Dent MD PROCEDURES Final Result RADIOLOGY RESULTS * Spirometry - HIM Scan (12/20/2017) Narrative Arin Berkowitz - 12/20/2017 [facility]-Progress note us Provider Outside PFT ORDERABLES Final Result * Hepatitis C antibody (07/25/2015 9:30 AM CDT) Hepatitis C Antibody Nonreactive Assay performance characteristics have not been established for newborns, infants, and children [facility] Blood specimen (specimen) 07/25/2015 9:30 AM CDT 07/25/2015 9:31 AM CDT us Wesley Dugan MD LAB - BLOOD ORDERABLES Final Re sult [facility] [address] [place] [address] from Last 3 Months or Most Recently Relevant to Health Maintenance Insurance [employer] MED[employer]ARE ADVANTAGE Member Subscriber Plan / Payer (Ef fective 2017-Present) Name:Butch Nieves Relation to Subscriber:Self Name:Butch Nieves Payer ID:[id number] (NAIC) Type:Medicare Address: [place] [id number] [employer] MED[employer]ARE ADVANTAGE Advance Directives For more information, please contact: [phone] Documents on File Type Date Recorded Patient Parking Station Attendant Expl anation Advance Directives and Living Will 11/15/2017 2:53 PM Health Care Directiv e 11/12/17 * Full Code (Latest Code Status on File) Date Activated Date Inactivated Comments 03/06/2015 9:26 AM 04/01/2018 1:20 PM * Full Code Date Activated Date Inactivated Comments 03/05/2015 6:19 PM 03/06/2015 9:26 AM Care Teams Representative Personal Service Relationship Specialty Start [place] [address] [place] [address] PCP - General Family Practice 03/14/21
--- OUTSIDE RECORDS SUMMARY | 2024-01-02 08:37 | XMS_ITS | Clinical Summary ---
Author Organization [facility] Address [place], [place] [address] Care Team Providers Care Cane Pusher Name Role Phone Yordy Morin MD Primary Care Provider [phone] Bennett AyalaA Unavailable Allergies Active Allergy Reactions Criticality Noted [...] Take 1 Tablet by mouth once daily. 0 Active tiotropium (spiriva) 18 mcg inhalation capsule Inhale 18 mcg by mouth once daily. 0 Active albuterol HFA (PRO-AIR; VENTOLIN; PROVENTIL) 90 mcg/actuation inhaler 2 Puffs every 4 hours if needed for Wheezing. 0 3 Active allopurinoL (ZYLOPRIM) 100 mg tablet Take 100 mg by mouth once daily. 0 3 Active Symbicort 80-4.5 mcg/actuation (80-4.5 mcg each actuation) inhaler Inhale 2 Puffs by mouth two times daily. 10.2 g 3 Active famotidine (PEPCID) 20 mg tabletIndications:Ga stroesophageal reflux disease, unspecified whether esophagitis present,Dysphagia, unspecified type Take 1 Tablet (20 mg) by mouth once daily. 3 Active fluticasone (50 mcg per actuation) nasal solution (FLONASE) Inhale 2 Sprays to both nostrils two times daily. 16 g 3 Active albuterol-ipratropiu m (DUONEB) (2.5-0.5 mg) in 3 mL NEBULIZATION solution Inhale 3 ml via nebulizer up to three times daily if needed 0 3 Active melatonin 5 mg tab tablet Take 2 Tablets (10 mg) by mouth at bedtime if needed for Sleep. 3 Active methIMAzole (TAPAZOLE) 5 mg tablet Take 5 mg by mouth once daily. Active nitroglycerin (NITROSTAT) 0.4 mg sublingual tabletIndications:Ca rdiovascular symptoms,Peripheral vascular disease (HC),Hx of coronary artery disease Place 0.4 mg under the tongue every 5 minutes if needed. 30 Tablet 3 Active omeprazole (PRILOSEC) 20 mg Delayed-Release capsule Take 1 Capsule (20 mg) by mouth once daily before a meal. 0 3 Active Daliresp 500 mcg tablet Take 500 mcg by mouth once daily. 0 3 Active rosuvastatin (CRESTOR) 40 mg tablet Take 1 Tablet (40 mg) by mouth at bedtime. 0 3 Active triamcinolone (ARISTOCORT; KENALOG) 0.1 % cream Apply topically to affected area(s) 2 times daily if needed. Active acetaminophen (TYLENOL EXTRA STRGTH) 500 mg tabletIndications:S/ P total left hip arthroplasty Take 1,000 mg by mouth every 6 hours if needed. Max acetaminophen dose: 4000mg in 24 hrs. 90 Tablet 3 Active carvediloL (COREG) 12.5 mg tabletIndications:Ty pical atrial flutter (HC) Take 1 Tablet (12.5 mg) by mouth two times daily with meals. 0 3 Active aspirin chewable 81 mg chewable tabletIndications:At herosclerotic heart disease of [place] coronary artery with other forms of angina pectoris (HC) Chew 1 Tablet (81 mg) by mouth once daily with a meal. 0 3 Active apixaban (ELIQUIS) 5 mg tabletIndications:pu lmonary thromboembolism Take 1 Tablet (5 mg) by mouth two times daily. 60 Tablet 3 Active oxyCODONE (ROXICODONE) 5 mg immediate release tabletIndications:S/ P total left hip arthroplasty Take 1 tablet by mouth twice daily. May take an additional 1 tablet by mouth every 4 hours if needed, but not to exceed more than 3 PRN doses per 24 hours. 20 Tablet 3 Active ferrous sulfate 325 mg delayed release tablet Take 325 mg by mouth once daily with a meal. Active fexofenadine (EUFEMIA) 180 mg tablet Take 180 mg by mouth once daily with a meal. Do not crush or chew. 12/27/19 24 Discontinu ed(*Patien t states no longer taking) cholecalciferol, Vitamin D3, 25 mcg (1,000 unit) chew chewable tablet Chew 2 Tablets (2,000 units) by mouth once daily. 40 units = 1 mcg (1000 units = 25 mcg) 0 3 12/27/19 24 Discontinu ed(*Patien t states no longer taking) finasteride (PROSCAR) 5 mg tabletIndications:Be nign prostatic hyperplasia, unspecified whether lower urinary tract symptoms present Take 0.25 Tablets (1.25 mg) by mouth every morning. 0 3 12/27/19 24 Discontinu ed(*Patien t states no longer taking) tamsulosin (FLOMAX) 0.4 mg capsuleIndications:B enign prostatic hyperplasia, unspecified whether lower urinary tract symptoms present Take 2 Capsules (0.8 mg) by mouth once daily after a meal. 0 3 12/27/19 24 Discontinu ed(*Patien t states no longer taking) furosemide (LASIX) 20 mg tabletIndications:Ty pical atrial flutter (HC) Take 1 Tablet (20 mg) by mouth once daily if needed (weight gain post ablation procedure). 3 Tablet 4 12/27/19 24 Discontinu ed(*IP Discontinu ed) Active Problems Problem Noted Date Diagnosed Date Acute pulmonary embolism with acute cor pulmonal e 02/06/2023 Atrial flutter 02/06/2023 Gout 02/06/2023 Congestive heart failure, un specified HF chronicity, unspecified heart failure type 02/01/2023 Chronic pancreatitis, unspecified pancreatitis t ype 02/01/2023 Atherosclerotic heart diseas e of [place] coronary artery with other forms of angina pectoris 02/01/2023 Benign prostatic hyperplasia with weak urinary s tream 10/16/2019 Overview (08/17/2021): Last Assessment & Plan: Urology appt next week Monoclonal gammopathy 08/19/2019 Arthritis of right acromioclavicular joint 07/08 Overview (08/17/2021): Last Assessment & Plan: Orthopedics steroid injection 2 years ago. He does not recall benefit or lack thereof. Recommended trial of repeat injection Avascular necrosis of right humeral head 020 Overview (08/17/2021): Last Assessment & Plan: Complains of shoulder pain. Imaged 2 years ago with possible loose body. He has topical and oral analgesics Actinic keratosis 10/16/2018 Overview (08/17/2021): Last Assessment & Plan: Discussed chapo history, rx Avascular necrosis of bone of hip, left 10/17/19 19 Overview (08/17/2021): Last Assessment & Plan: He complains about pain. S/p coring procedure, bike every other day. Discussed chronic pain, options. Ortho involved Intrinsic eczema 09/04/2018 Graves disease 06/30/2018 Overview (08/17/2021): Last Assessment & Plan: Endocrinology adjusted methimazole Tinnitus, bilateral 05/09/2018 Overview (08/17/2021): Last Assessment & Plan: Reduced with new hearing aides Iron deficiency 03/28/2018 History of tobacco abuse 08/21/2017 Overview (08/17/2021): Last Assessment & Plan: Now quit 3 years Peripheral polyneuropathy 08/21/2017 Overview (08/17/2021): Last Assessment & Plan: Opioid therapy Continuous opioid dependence 05/21/2017 Overview (08/17/2021): Last Assessment & Plan: Stable use Chronic pain syndrome 04/22/2017 Overview (08/17/2021): Patient is followed by Dr Brandon Kelly MD for ongoing prescription of pain medication. All refills should only be approved by this provider, or covering partner. Last Assessment & Plan: Controlled substance agreement filed Primary osteoarthritis of ankle 03/05/2017 Sleep related hypoventilatio n in conditions classified elsewhere 02/03/2016 Overview (08/17/2021): C PAP Replacing diagnoses that were inactivated after the 12/09/2020 regulatory import. Primary osteoarthritis of right foot 07/25/2015 Personal history of calcium pyrophosphate deposition disease (CPPD) 07/04/2015 Overview (08/17/2021): Last Assessment & Plan: Colchicine therapy Panlobular emphysema 06/13/2015 Overview (08/17/2021): Last Assessment & Plan: NUR, seems improved subjectively. Carpal tunnel syndrome of right wrist 01/31/2015 REGINALDO (obstructive sleep apnea) 11/23/2014 Overview (08/17/2021): Last Assessment & Plan: Complex sleep-disordered breathing with central apnea. No CPAP Vitamin B12 deficiency without anemia 08/10/2014 Overview (08/17/2021): Diagnosis updated by automated process. Provider to review and confirm. Peripheral vascular disease 02/19/2014 Overview (08/17/2021): Last Assessment & Plan: BP Readings from Last 1 Encounters: 08/17/19 117/71 continue Right femoral endarterectomy with pericardial patch angioplasty 2012 Last Assessment & Plan: S/p Angioplasty, symptoms stable Coronary artery disease invo lving [place] coronary artery of [place] heart without angina pectoris 08/19/2013 Overview (08/17/2021): cardiac cath 08/2017: obtuse marginal is chronically occluded; CABG 1996: ADRIENNE to RCA, sequential ARRIAZA to D1, D2 & distal LAD, SVG to OM Last Assessment & Plan: Asymptomatic. Cardiology in October Ischemic cardiomyopathy 08/19/2013 Overview (08/17/2021): Last Assessment & Plan: Discussed. . Nitroglycerin spray rx sent. GERD (gastroesophageal reflux disease) 4 Onychomycosis 06/09/2013 Hyperlipidemia LDL goal <70 02/17/2013 Overview (08/17/2021): Last Assessment & Plan: Treated, continue Rosuvastatin 40mg. Recurrent major depressive disorder, in partial remission 01/28/2013 Overview (08/17/2021): Last Assessment & Plan: Did not tolerate antidepressants, declines further interventions Abdominal aortic aneurysm 01/21/2013 Overview (08/17/2021): Endovascular repair Hx of coronary artery disease 01/21/2013 Overview (08/17/2021): Last Assessment & Plan: Chronic non cardiac chest pain. Cardiology last 10/2018. Please refer to that note COPD (chronic obstructive pulmonary disease) Tobacco dependence syndrome 08/01/2011 Encounters Date Type Department Care Team Description 12/30/2023 Telephone [facility] [place], [place] [address] [facility] [address] [place] [phone] Maurilio Chávez MD Blister 12/27/2023 10:32 AM CDT Anesthesia Event [facility] [address] [place] [address] Dalton Bernard MD 12/27/2023 7:13 AM CDT - 12/27/2023 5:26 PM CDT Hospital Encounter [facility] [address] [place] [address] Maurilio Chávez MD Milshteyn, Mark L, MD Typical atrial flutter (HC) (Primary Dx) Discharge Disposition: Home Self Care 12/27/2023 Travel 12/25/2023 Telephone [facility] [place], [place] [address] [facility] [address] [place] [phone] Maurilio Chávez MD Appointment 12/25/2023 Telephone [facility] [place] [place] [address] [place] [address] [place] [phone] Maurilio Chávez MD Medication Management 11/21/2023 Telephone [facility] [place], [place] [address] [facility] [address] [place] [phone] Maurilio Chávez MD Appointment Request 11/18/2023 10:00 AM CDT Office Visit [address] [place] [address] [place] [phone] Maurilio Chávez MD CV Electrophysiology New (Initial; Ref Shawn; Discuss possible ablation; Pt states feeling tired) 11/18/2023 Travel 11/14/2023 Travel 10/09/2023 Telephone [facility] [address] [place] [address] Dalton Escobar MD Questions 10/07/2023 Lab Requisition [facility] [phone] Yordy Morin MD from Last 3 Months Social History Tobacco Use Types Packs/Day Years Used Date Smoking Tobacco: Former Cigarettes Q uit: 09/2016 Smokeless Tobacco: Never Tobacco Cessation:Counseling Given: No Alcohol Use Standard Drinks/Week Comments Not Currently 0 (1 standard drink = 0.6 oz pur e alcohol) Financial Resource Strain Answer Date R ecorded Difficulty of Paying Living Expenses Not on file 03/11/2021 Difficulty of Paying Living Expenses Not on file 03/11/2021 Sex and Gender Information Value Date Recorded Sex Assigned at Not on file Gender Identity Not on file Sexual Orientation Not on file Obstetrics History Last Filed Vital Signs Vital Sign Reading Time Taken Comments Blood Pressure 122/63 12/27/2023 4:56 PM CDT Pulse 75 12/27/2023 4:56 PM CDT Temperature 36.8 ??C (98.2 ??F) 12/27/2023 8:07 AM CD T Respiratory Rate 18 12/27/2023 12:20 PM CDT Oxygen Saturation 93% 12/27/2023 4:56 PM CDT Inhaled Oxygen Concentration - - Weight 80.6 kg (177 lb 9.6 oz) 12/27/2023 7:43 A M CDT Height 182.9 cm (6') 12/27/2023 7:43 AM CDT Body Mass Index 24.09 12/27/2023 7:43 AM CDT Plan of Treatment Upcoming Encounters Date Type Department Care Team (Late st Contact Info) Description 03/23/2024 10:30 AM SERVICE 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 HELPER Office Visit [facility] [address] [facility] [place] [address] [place] [phone] Maurilio Chávez MD [address] [facility] [address] [place] [address] Health Maintenance Due Date Last Done Comments Pneumococcal series for age 65+ (1 of 2 - PCV) 1952 Tdap 1957 Depression screening for age 12+ 1958 Hepatitis C screening for age 18-79 1964 Tetanus booster 1966 Zoster (shingles) series for age 50+ (1 of 2) 1996 Medicare Wellness for age 65+ 10/04/2011 RSV vaccine for adults or pr egnancy (1 - 1-dose 75+ series) 2021 COVID-19 vaccine series ( season) 2023 10/15/2022, 06/09/2020, 05/12/2020 Influenza for age 65+ 11/10/2023 BMI (ht and wt on same day) for age 18+ 11/17/2024 11/18/2023, 07/22/2023 Procedures Procedure Name Priority Date/Time Associated Diagnosis Comments EKG 12 LEAD Routine 12/27/2023 2:53 PM CDT CV PROCEDURE TO BE PERFORMED Routine 12/27/2023 12:08 PM CDT EP OTHER PROCEDURE Routine 12/27/2023 10 :03 AM CDT EXTRA TUBE GOLD/SST Today 12/27/2023 7 :47 AM CDT CBC W PLT NO DIFF Preop 12/27/2023 7:4 7 AM CDT BASIC METABOLIC PANEL Preop 12/27/2023 7:47 AM CDT EKG 12 LEAD Preop 12/27/2023 7:40 AM CDT EKG 12 LEAD Routine 11/18/2023 9:23 AM CDT Atypical atrial flutter (HC) LAB TRACKING EVENT Routine 10/07/2023 8: 50 AM CDT PATH TISSUE EXAM Routine 10/07/2023 8:50 AM CDT from Last 3 Months Results * EKG 12 LEAD (12/27/2023 2:53 PM CDT) Only the most recent of3 resultswithin the time period is included. Interpretation Sinus rhythm with 1st degree A-V block Septal infarct (cited on or before 22-Feb-2022) Abnormal ECG When compared with ECG of 27-Dec-2023 07:40, Sinus rhythm has replaced Atrial flutter Questionable change in initial forces of Anteroseptal leads BEYOND NOW Ventricular Rate 77 BPM BEYOND NOW Atrial Rate 77 BPM BEYOND NOW P-R Interval 252 ms BEYOND NOW QRS Duration 100 ms BEYOND NOW QT 404 ms BEYOND NOW QTc 457 ms BEYOND NOW P Valders 84 degrees BEYOND NOW R Valders 74 degrees BEYOND NOW T Valders 80 degrees BEYOND NOW 12/27/2023 2:53 PM CDT 12/28/2023 7:19 PM CDT Narrative BEYOND NOW - 12/28/2023 7:19 PM CDT Test Indication: POST AFLUTTER ABLATION Maurilio Chávez MD EKG ORD BEYOND NOW [place], [place] * EP Procedure to be Performed (12/27/2023 12:08 PM CDT) Narrative Maurilio Chávez MD - 12/27/2023 12:08 PM CDT Maurilio Chávez MD ? 12/27/2023 12:14 PM BRIEF PROCEDURE NOTE: Pre-procedural diagnosis: Typical atrial flutter. Procedure: EPS and CTI ablation. Post-procedural diagnosis: Same. Outcome: Successful. Access: RFV: 7FR x1 and 8.5FR x1. Complications: None. EBL: minimal Plan: -Groin sheath pull in recovery area. -Bedrest for 3 hours after groin sheath pull. -Resume oral anticoagulation tonight. -Anticipate discharge this afternoon. -No anticipated changes to outpatient medications upon discharge. -Follow-up in EP clinic with JR or myself in 2-3 months. Full report to follow in [facility]. Maurilio Chávez MD, PhD Electrophysiology Staff Pager: [phone] 12/27/2023 12:09 PM Maurilio Chávez MD AIR CONDITIONER INSTALLER HELPER OR D * EP OTHER PROCEDURE (12/27/2023 10:03 AM CDT) Anatomical Region Laterality Modality X-Ray Angiograph y, X-Ray Angiography 12/27/2023 10:0 3 AM CDT Narrative Transcriptions Maurilio Chávez MD - 12/27/2023 5:34 PM CDT [facility] Electrophysiology Procedure Report Name: KANDY CANTRELL Event Date: 12/27/2023 [facility] ID #: [id number] Date: 1945 Gender: Male Age: 78 CARL #: [id number] Procedure Performed By: MAURILIO CHÁVEZ [facility] Referring Physician: Summary / Conclusions VASCULAR ACCESS * Using ultrasound guidance and a percutaneous technique, the rightfemoral vein was accessed. Ultrasound was used to confirm vessel patency,localizing needle into the lumen of the vessel. For safety purposes, apicture was saved for the medical record. Pre-Operative Diagnosis ? Typical atrial flutter. Post-Operative Diagnosis ? Same as Pre-operative diagnosis Indications ? Same as Pre-operative diagnosis Consent & Hayes Protocol Hayes protocol was followed. TIME OUT conducted just prior tostarting procedure confirmed patient identity, site/side, procedure,patient position, and availability of correct equipment and implants (ifapplicable). The risks, benefits, and alternatives of the procedure were discussed withthe patient and written informed consent was obtained. Procedure Description CONCLUSIONS: 1. Typical isthmus-dependent atrial flutter was present on arrival. 2. Successful ablation of the right atrial cavotricuspid isthmus. 3. Normal AV node function. PROCEDURES PERFORMED: Right atrial pacing. Right atrial electrogram recording. His bundle electrogram recording. Coronary sinus pacing. Coronary sinus electrogram recording. Right ventricular pacing. Right ventricular electrogram recording. Arrhythmia induction. Right atrial mapping. Three dimensional mapping: Picturelife Carto mapping system was used. Radiofrequency catheter ablation. COMPLICATIONS: None. PROCEDURE DESCRIPTION: The patient was assessed by me and was found to be a suitable candidatefor this procedure. The patient was re-evaluated immediately prior tosedation at the time indicated in the Procedural Log. Moderate-deepsedation was provided by anesthesiology. After sterile preparation andlocal anesthesia with 1% Lidocaine and 0.25% Bupivacaine, a micropunctureneedle was used to puncture the femoral vessel noted below. Usingstandard Seldinger technique, a guide wire was advanced into the vessel.Subsequently, a sheath was introduced over the guide wire. Electrodecatheters were then introduced under fluoroscopic guidance into the heartfor the purpose of pacing and electrogram recording. This process wasrepeated for each separate electrode catheter with location andpositioning as noted in the Catheter Placement section. Coronary sinuscatheterization was performed using a right femoral venous approach. Theelectrode catheter was advanced into the superior right atrium and thencurved inferiorly with counterclockwise torque under fluoroscopic guidanceto the posterior inferior right atrium and then into the coronary sinusfor the purpose of left atrial pacing and/or electrogram recording. Anelectrophysiology study was performed during the procedure. The Aviirto three dimensional mapping system was used during the procedure formapping the arrhythmia activation sequence and anatomy. Radiofrequencycatheter ablation was done with a [employer] 70 lesion generator. Energywas delivered in a temperature control mode to the large tip of asteerable ablation catheter. When the procedure was completed, thecatheters were removed from the patient. The sheaths were removed andhemostasis was achieved with figure of eight sutures and manualcompression. Catheter Placement: -Coronary Sinus (Right Femoral Vein): 7 Vincentian sheath, 7 Vincentian decapolarcatheter. -Mapping/Ablating/Right Atrium/His/Right Ventricle (Right Femoral Vein):8 Vincentian sheath --> 8.5FR Ramp, 7.5 Vincentian quadripolar catheter with 3.5mm open irrigated tip. Atrial Flutter Mapping Data: The patient presented to the EP Lab in atrial flutter. The QRS morphologyduring atrial flutter was normal with an atrial cycle length of 245 ms.The Picturelife Carto 3-D mapping system was used to map the arrhythmiaactivation sequence. The activation sequence was counterclockwise aroundthe tricuspid annulus and the coronary sinus os. These findings werediagnostic of typical or isthmus dependent atrial flutter. Radiofrequency Catheter Ablation: Ablation Site(s): Right atrial cavo-tricuspid isthmus. Post-Ablation Data: Supraventricular tachycardia could not be induced. The Picturelife Cartothree dimensional mapping system was used to map for conduction block inthe right atrial cavotricuspid isthmus. Differential pacing in theanterior right atrium was also consistent with block in the right atrialcavotricuspid isthmus. The low anterior right atrial to proximal coronarysinus conduction time increased from 75 ms during atrial flutter to 194 mspost-ablation. The proximal coronary sinus to low anterior right atrialconduction time increased from 120 ms post-conversion to 200 mspost-ablation. Right atrial signals medial and lateral to thecavotricuspid isthmus during proximal coronary sinus pacing were separatedby 130 ms post-ablation. Post-ablation conduction times remained the sameafter >15 minutes of observation. Bidirectional block was demonstrated inthe cavotricuspid isthmus. Electrophysiology Study Data Basic Intervals Study State Underlying Rhythm Cycle Length ME PA AH HV QRS Valders QRSMorphology Baseline NSR [phone] Post Ablation NSR 808 245 130 50 Antegrade 1:1 AV Node Function Study State Pacing Site AV Node SCL 1:1 AH HV Dual AVN Physiology? AVNFast 1:1 AVN Slow 1:1 Wenkebach Cycle Length Post Ablation CS 420 400 Refractory Periods Study State Pacing Site Paced Cycle Length Paced Cycle ERP AVN ERP DualNode Physiology? AVN ERP (fast) AVN ERP (slow) Study Events Atrial 600 240 Post Ablation CS 600 240 350 Retrograde 1:1 AV Node Function Study State Pacing Site AV Node SCL 1:1 Dual AVN Physiology? AVN Fast 1:1 AVN Slow 1:1 Wenkebach Cycle Length No VA Conduction? Midline Activation? Post Ablation RVA VAD @ 800 Ablation Data Atrial Flutter Energy Source Ablation Catheter Used Rhythm During Ablation # of AttemptsMax Slaughter Max Temp. Result RF Q-Dot Ablation Catheter D-F Curve NSR 35 30 28 Success Cavotricuspid isthmus ablation was performed. (Pre) (Post) CS-ABL Site: 71 196 Comments: Total Ablation Time: 587 sec Catheter Use Catheter Type Catheter Description Insertion Site Intracardiac Site SheathSize Sheath Type Sheath Description Diagnostic/Map DecaNav F-Curve Decapolar 2-8-2 spacing Right Femoral VeinRA 7 Fr Standard Sidearm Ablation Q-Dot Ablation Catheter D-F Curve Right Femoral Vein Map/Abl 8FrStandard Sidearm Procedure(s) Performed ? Site-Rite Ultrasound used for vascular access ? SVT Ablation ? CS/LA Catheter pace/recording ? 3D Mapping Auxiliary Device Mapping System 1: Carto Procedure Detail Estimated Blood Loss: < 50 ml Specimen Collected: None Level of Sedation Achieved: See Anesthesia Note Total Flouro Time: 0.7 BIOINFORMATICS DEVELOPER Total Flouro Dose: 1 mGy Staff Name Role Maurilio Chávez Health Manager Michelle Escobar RN Nurse Mandi, Darci EPT Scrub Trevin Boykin EPT Monitor Medications Ordered and Administered Start Time Stop Time Medication Dose Units Route Ordered By Given By 11:10 0.25% Bupivicaine 2.5 mL Subcut MD Scooter Reid MD 11:10 1% Lidocaine Hydrochloride 2.5 mL Subcut Ty Reid MD The anesthesia service monitored the patient?s conscious sedation duringthe procedure. The medications listed above were verbally ordered by me and read back tome as documented above. Refer to the hemodynamic procedure log report for additional casedetails. electronically signed on 12/27/2023 5:34:48 PM with status of Final Maurilio Chávez MD Health Manager [facility] [address] [place] [address] (p) [phone](f) Maurilio Chávez MD CV IMAGING * EXTRA TUBE GOLD/SST (12/27/2023 7:47 AM CDT) Blood BLOOD SPECIMEN / Unknown Extra Tube / Unknown 12/27/2023 7:47 AM CDT 12/27/2023 7:58 AM CDT Maurilio Chávez MD LABORATORY [facility] [address] [place] [address], [place] * (ABNORMAL) CBC with Platelet no Diff (12/27/2023 7:47 AM CDT) [facility] WHITE BLOOD COUNT 9.3 4.5 - 11.0 thou/cu mm 12/27/2023 8:05 AM CDT [facility] RED BLOOD COUNT 4.65 4.30 - 5.90 mil/cu mm 12/27/2023 8:05 AM CDT [facility] HEMOGLOBIN 10.9(L) 13.5 - 17.5 g/dL 12/27/2023 8:05 AM T [facility] HEMATOCRIT 36.7(L) 37.0 - 53.0 % 12/27/2023 8:05 AM T [facility] MCV 79(L) 80 - 100 fL 12/27/2023 8:05 AM CDT [facility] MCH 23.4(L) 26.0 - 34.0 pg 12/27/2023 8:05 AM T [facility] MCHC 29.7(L) 32.0 - 36.0 g/dL 12/27/2023 8:05 AM T [facility] RDW 18.5(H) 11.5 - 15.5 % 12/27/2023 8:05 AM CDT [facility] PLATELET COUNT 205 140 - 440 thou/cu mm 12/27/2023 8:05 AM T [facility] MPV 8.1 6.5 - 11.0 fL 12/27/2023 8:05 AM CDT [facility] NRBC 0.0 % 12/27/2023 8:05 AM T [facility] ABS NRBC 0.0 thou /cu mm 12/27/2023 8:05 AM CDT [facility] Blood BLOOD SPECIMEN / Unknown Non-Lab Venipuncture / Unknown 12/27/2023 7:47 AM CDT 12/27/2023 7:57 AM CDT Maurilio Chávez MD HEMATOLOGY [facility] [address] [place] [address], * Basic Metabolic Panel (12/27/2023 7:47 AM CDT) SODIUM 141 136 - 145 mmol/L 12/27/2023 8:30 AM CDT [facility] POTASSIUM 3.9 3.5 - 5.1 mmol/L 12/27/2023 8:30 AM CDT [facility] CHLORIDE 105 98 - 107 mmol/L 12/27/2023 8:30 AM CDT [facility] CO2,TOTAL 24 22 - 29 mmol/L 12/27/2023 8:30 AM CDT [facility] ANION GAP 12 5 - 18 12/27/2023 8:30 AM CDT [facility] GLUCOSE 97 70 - 99 mg/dL 12/27/2023 8:30 AM CDT [facility] CALCIUM 9.6 8.8 - 10.2 mg/dL 12/27/2023 8:30 AM CDT [facility] BUN 13 8 - 23 mg/dL 12/27/2023 8:30 AM CDT [facility] CREATININE 0.79 0.70 - 1.20 mg/dL 12/27/2023 8:30 AM CDT [facility] BUN/CREAT RATIO 16 10 - 20 8:30 AM CDT [facility] eGFR >90 >90 mL/min/1.7 3m2 12/27/2023 8:30 AM T [facility] Comment:As of 2021, eG FR is calculated by the CKD-EPI creatinine equation without race adjustment. ??eGFR can be influenced by muscle mass, exercise, and diet. ??The reported eGFR is an estimation only and is only applicable if the renal function is stable. Blood BLOOD SPECIMEN / Unknown Non-Lab Venipuncture / Unknown 12/27/2023 7:47 AM CDT 12/27/2023 7:57 AM CDT Maurilio Chávez MD CHEMISTRY Performing Organization Address [facility] de Phone Number [facility] [address] [place] [address], * LAB TRACKING EVENT (10/07/2023 8:50 AM CDT) Other (Other) Client Collect / Unknown 10/07/2023 8:50 AM CDT 10/07/2023 10:08 PM CDT Yordy Morin MD LAB BILL ONLY Performing Organization Address [facility] de Phone Number [facility] [address] [place] [address], * PATH TISSUE EXAM (10/07/2023 8:50 AM CDT) Case Report Pathology Report ?Case: [id number] ? Authorizing Provider: ??Yordy Morin MD ?Collected: ? 10/07/2023 0850 ? Ordering Location: ? [facility] ?Received: ?10/08/2023 0823 ? Pathologist: ? Antoine Wade, ? MD ? Specimens: ?? A) - Duodenum Biopsy ? B) - Stomach Biopsy ? 10/09/2023 11:33 AM T [facility] Final Diagnosis A) DUODENUM, BIOPSY: 1. Normal duodenal mucosa 2. Negative for celiac disease and other enteropathy B) STOMACH, ANTRUM AND BODY, BIOPSY: 1. Normal gastric antral and body mucosae 2. Negative for Helicobacter 10/09/2023 11:33 AM T [facility] Clinical Information Iron deficiency anemia. Upper endoscopy was grossly normal. 10/09/2023 11:33 AM T [facility] Gross Description A) Received [...] name and designated random stomach. Victor Hugo Chetna 10/08/2023 9:08 AM 10/09/2023 11:33 AM CDT [facility] Microscopic Description The final diagnosis is based on microscopic examination of appropriate sections of all specimens. 10/09/2023 11:33 AM CDT [facility] Additional Information [facility] - [address] [place] [address] [address] [address] 10/09/2023 11:33 AM CDT [facility] Other (Duodenum Biopsy) 10/07/2023 8:50 AM CDT 10/08/2023 8:23 AM CDT Specimen (specimen) (Stomach Biopsy) 10/07/2023 8:50 AM CDT 10/08/2023 8:23 AM CDT Yordy Morin MD PATHOLOGY/CYTOLOGY [facility] [address] [place] [address], from Last 3 Months Advance Directives * Full Code (Latest Code Status on File) Date Activated Date Inactivated Comments 12/27/2023 12:13 PM 12/27/2023 7:32 PM Question Answer Comments Code Status Discussion: Other * Full Code Date Activated Date Inactivated Comments 02/06/2023 8:49 PM 02/12/2023 11:55 AM Question Answer Comments Code Status Discussion: Reviewed Preferences * Full Code Date Activated Date Inactivated Comments 02/22/2022 9:26 AM 02/22/2022 6:27 PM Question Answer Comments Code Status Discussion: Reviewed Preferences Care Teams Cane Pusher Relationship Specialty Start Date End Date Yordy Morin MD [address] [place] [address] PCP - General Internal Medicine 08/17/21 Bennett Ayala, SAM [address] [place], [place] [id number] Occupational Therapy 02/14/23
--- OUTSIDE RECORDS SUMMARY | 2024-01-02 08:38 | XMS_ITS | Encounter Summary ---
Author Organization [place] Address [address] [place] [address] Care Team Providers Care Washtub Worker Helper Name Role Phone [facility] Unavailable Ana Maravilla MD Primary Care Provide r Unavailable Wesley Dugan MD Primary Care Provider [phone] Laurence Steele RN Unavailable Wesley Dugan MD Unavailable [phone] Wesley Dugan MD Unavailable [phone] Nela Sheth RN Unavailable Unavailable Ella MatiasC Unavailable Santi Heller MD Unavailable [phone] Aashish Leone MD Unavailable Unavail able Tato Mallory MD Unavailable [phone] Chirag Taylor MD Primary Care Provider + Miguel Culver PA-C Unavailable [phone] Wesley Dugan MD Unavailable [phone] Encounter Details Date Type Department Care Team (Late st Contact Info) Description 07/16/2013 Office Visit-[facility] [address] [place] [address] Milagros Manzano, CLINICAL ACCOUNT EXECUTIVE BAG CUTTER [address] [facility] [address] [place] [address] Social History Tobacco Use Types Packs/Day Years Used Date Smoking Tobacco: Every Day Cigarettes 0.8 53 Smokeless Tobacco: Never Alcohol Use Standard Drinks/Week Comments Yes 0 (1 standard drink = 0.6 oz pur e alcohol) social 2 drinks/week Sex and Gender Information Value Date Recorded Sex Assigned at Male 03/30/2018 7:28 AM RECORDING CLERK Legal Sex Male 12:44 PM CDT Gender Identity Male 03/30/2018 7:28 AM RECORDING CLERK Sexual Orientation Straight 02/18/2018 9: 07 AM RECORDING CLERK documented as of this encounter Progress Notes * Milagros Manzano, GENERAL COUNSEL - 07/20/2013 10:50 AM CDT Progress Note Created by: Milagros Manzano, BRIAN [id number] DATE: 07/16/2013 KANDY CANTRELL DATE OF : 1945 AGE: [age] years old Referring Physician: ANA MARAVILLA Referring Clinic: [facility] CURRENT DIAGNOSES 1. - Hyperlipidemia, 272.4 2. [...] years ago. He was treated previously at [facility] for peripheral arterial disease. He underwent [...] Residence -lives with, daughter and lives in [place] year round; REVIEW OF SYSTEMS GENERAL negative [...] q.d. I am hopeful this will help rebeccaeve some of his lower extremity edema. In [...] documented as of this encounter Care Teams Washtub Worker Helper Relationship Specialty [place] [address] [place] [address] PCP - General Family Practice 03/02/13 12/21/14 [place] [address] [place] [address] PCP - General Family Practice 03/14/21 [place] [address] [place] [address] PCP - Assigned PCP 09/19/14 05/13/18 [place] [address] [address] [facility] [address] [place] [address] PCP - General 03/15/20 03/13/[address] [address] 02/10/13 03/08/15 Laurence Steele RN Clinic Transformation Analyst Nurse 03/09/15 [place] [address] [place] [address] Assigned PCP 09/19/14 02/23/22 Nela Sheth, JARON Personal Advocate & Liaison (PAL) Family Practice 10/13/19 03/14/20 Ella Matias, PA-C 9 [place] [address] Assigned Cancer Care Provider 01/01/20 03/18/21 Santi Heller MD [address] [facility] [address] [place] [address] Assigned Surgical Provider 01/01/2003/01 Aashish Leone MD Assigned Heart and Vascular Provider 01/01/20 05/07/20 [place] [address] [address] Assigned Musculoskeletal Provider 01/01/20 07/23/20 Miguel Culver PA-C [address] [place] [address] Assigned Heart and Vascular Provider 05/25/20 04/29/21 [place] [address] [place] [address] Assigned PCP 05/05/22 10/19/22 documented as of this encounter
--- OUTSIDE RECORDS SUMMARY | 2024-01-02 08:38 | XMS_ITS | Encounter Summary ---
Author Organization [place] Address [address] [place] [address] Care Team Providers Care Relay Repairer Name Role Phone Wesley Dugan MD Primary Care Provider [phone] Wesley Dugan MD Unavailable [phone] Nela Sheth RN Unavailable Unavailable Ella Matias PA-C Unavailable Santi Heller MD Unavailable Aashish Leone MD Unavailable Unavail able Tato Mallory MD Unavailable [phone] Chirag Taylor MD Primary Care Provider + Miguel Culver PA-C Unavailable [phone] Wesley Dugan MD Unavailable [phone] Encounter Details Date Type Department Care Team (Late st Contact Info) Description 07/16/2018 [facility] [place] [address] [place] [address] Duran Qureshi Social History Tobacco Use Types Packs/Day Years Used Date Smoking Tobacco: Former Cigarettes 0 1958 - 2016 Smokeless Tobacco: Never Alcohol Use Standard Drinks/Week Comments No 0 (1 standard drink = 0.6 oz pur e alcohol) PHQ-2 Answer Date Recorded PHQ-2 Score 4 03/18/2018 Sex and Gender Information Value Date Recorded Sex Assigned at Male 03/30/2018 7:28 AM WEAVE ROOM SUPERVISOR Legal Sex Male 12:44 PM CDT Gender Identity Male 03/30/2018 7:28 AM WEAVE ROOM SUPERVISOR Sexual Orientation Straight 02/18/2018 9: 07 AM WEAVE ROOM SUPERVISOR documented as of this encounter Plan of Treatment Not on file documented as of this encounter Visit Diagnoses Not on filedocumented in this encounter Additional Health Concerns Infection Onset Date Last Indicated Resolved Time Rule Out COVID-19 07/27/2019 07/27/2019 07/27/2019 10:15 PM CDT Assessment Noted Time PHQ-9 Depression Total Score: 12 019 11:34 AM CDT documented as of this encounter Care Teams Relay Repairer Relationship Specialty [place] [address] [place] [address] PCP - General Family Practice 03/14/21 [place] [address] [address] PCP - General 03/15/20 03/13/21 [place] [address] [place] [address] Assigned PCP 09/19/14 02/23/22 Nela Sheth RN Personal Advocate & Liaison (PAL) Family Practice 10/13/19 03/14/20 Ella Matias, PA-C 9 [place] [address] Assigned Cancer Care Provider 01/01/20 03/18/21 Santi Heller MD 6363 [facility] [address] [place] [address] Assigned Surgical Provider 01/01/2003/01 Aashish Leone MD Assigned Heart and Vascular Provider 01/01/20 05/07/20 [place] [address] [facility] [address] [place] [address] Assigned Musculoskeletal Provider 01/01/20 07/23/20 Miguel Culver PA-C [address] [place] [address] Assigned Heart and Vascular Provider 05/25/20 04/29/21 [place] [address] [place] [address] Assigned PCP 05/05/22 10/19/22 documented as of this encounter
--- OUTSIDE RECORDS SUMMARY | 2024-01-02 08:38 | XMS_ITS | Encounter Summary ---
Author Organization [place] Address [address] [place] [address]. [place] [address] Care Team Providers Care Lining Machine Tender Name Role Phone Wesley Dugan MD Primary Care Provider [phone] Wesley Dugan MD Unavailable [phone] Nela Sheth RN Unavailable Unavailable Ella Matias PA-C Unavailable Santi Heller MD Unavailable [phone] Aashish Leone MD Unavailable Unavail able Tato Mallory MD Unavailable [phone] Chirag Taylor MD Primary Care Provider + Miguel Culver PA-C Unavailable Wesley Dugan MD Unavailable [phone] Reason for Visit * Reason Comments Medication Refill Encounter Details Date Type Department Care Team (Late st Contact Info) Description [facility] [address] [place] [address] [place] [address] [place], [place] [id number] Medication Refill Social History Tobacco Use Types Packs/Day Years Used Date Smoking Tobacco: Former Cigarettes 0 1958 - 2016 Smokeless Tobacco: Never Alcohol Use Standard Drinks/Week Comments Not Currently 0 (1 standard drink = 0.6 oz pur e alcohol) PHQ-2 Answer Date Recorded PHQ-2 Score 2 10/16/2019 Sex and Gender Information Value Date Recorded Sex Assigned at Male 03/30/2018 7:28 AM TRANSMISSION ENGINEER Legal Sex Male 12:44 PM CDT Gender Identity Male 03/30/2018 7:28 AM TRANSMISSION ENGINEER Sexual Orientation Straight 02/18/2018 9: 07 AM TRANSMISSION ENGINEER documented as of this encounter Miscellaneous Notes * Telephone Encounter - Brooklyn Katz RN - 12/15/2019 9:15 AM CDT [place] [facility] [place] Protocol. Brooklyn Katz RN on 12/15/2019 at 9:15 AM documented in this encounter Plan of Treatment Not on file documented as of this encounter Visit Diagnoses Diagnosis Panlobular emphysema (H) Other emphysema documented in this encounter Additional Health Concerns Assessment Noted Time PHQ-9 Depression Total Score: 7 10/16/19 20 7:11 AM CDT documented as of this encounter Care Teams Lining Machine Tender Relationship Specialty [place] [address] [place] [address] PCP - General Family Practice 03/14/21 Chirag Taylor MD [address] [place] [address] PCP - General 03/15/20 03/13/21 [place] [address] [place] [address] Assigned PCP 09/19/14 02/23/22 Nela Sheth RN Personal Advocate & Liaison (PAL) Family Practice 10/13/19 03/14/20 Ella Matias PA-C 909 [place] [address] Assigned Cancer Care Provider 01/01/20 03/18/21 Santi Heller MD 6363 [facility] 500 [place], [place] [address] Assigned Surgical Provider 01/01/2003/01 Aashish Leone MD Assigned Heart and Vascular Provider 01/01/20 05/07/20 [place] [address] [facility] 300 [place] [address] Assigned Musculoskeletal Provider 01/01/20 07/23/20 Miguel Culver PA-C 6405 [place] [address] Assigned Heart and Vascular Provider 05/25/20 04/29/21 [place] [address] [place] [address] Assigned PCP 05/05/22 10/19/22 documented as of this encounter
--- OUTSIDE RECORDS SUMMARY | 2024-01-02 08:38 | XMS_ITS | Encounter Summary ---
Author Organization [place] Address [address] [place] [address]. [place] [address] Care Team Providers Care Topline Beading Machine Tender Name Role Phone Wesley Dugan MD Primary Care Provider [phone] Wesley Dugan MD Unavailable [phone] Nela Sheth RN Unavailable Unavailable Ella Matias PA-C Unavailable Santi Heller MD Unavailable [phone] Aashish Leone MD Unavailable Unavail able Tato Mallory MD Unavailable [phone] Chirag Taylor MD Primary Care Provider + Miguel Culver PA-C Unavailable Wesley Dugan MD Unavailable [phone] Reason for Visit * Reason Comments Medication Refill Oxycodone Encounter Details Date Type Department Care Team (Late st Contact Info) Description [facility] [address] [place] [address] Wesley Dugan [place] [address] [place] [address] Medication Refill (Oxycodone) Social History Tobacco Use Types Packs/Day Years Used Date Smoking Tobacco: Former Cigarettes 0 1958 - 2016 Smokeless Tobacco: Never Alcohol Use Standard Drinks/Week Comments Not Currently 0 (1 standard drink = 0.6 oz pur e alcohol) PHQ-2 Answer Date Recorded PHQ-2 Score 2 04/13/2019 Sex and Gender Information Value Date Recorded Sex Assigned at Male 03/30/2018 7:28 AM DEPENDENCY PROGRAM DIRECTOR Legal Sex Male 12:44 PM CDT Gender Identity Male 03/30/2018 7:28 AM DEPENDENCY PROGRAM DIRECTOR Sexual Orientation Straight 02/18/2018 9: 07 AM DEPENDENCY PROGRAM DIRECTOR COVID-19 Exposure Response Date Recorded In the last month, have you been in contact with someone who was confirmed or suspected to have Coronavirus / COVID-19? Unable to assess 05/29/2019 7:44 AM CDT documented as of this encounter Miscellaneous Notes * Telephone Encounter - Karo Saini RN - 06/17/2019 10:36 AM CDT Oxycodone Last OV 05/29/19 telephone Last RF 05/21/19 #60 HARD METALS ENGRAVER HAND updated. No concerns noted. Due 06/20/19. Not [...] Total Score: 5 04/14/19 20 7:02 AM DEPENDENCY PROGRAM DIRECTOR documented as of this encounter Care Teams Topline Beading Machine Tender Relationship Specialty [place] [address] [place] [address] PCP - General Family Practice 03/14/21 [place] [address] [address] PCP - General 03/15/20 03/13/21 [place] [address] [place] [address] Assigned PCP 09/19/14 02/23/22 Nela Sheth, RN Personal Advocate & Liaison (PAL) Family Practice 10/13/19 03/14/20 Ella Matias PA-C 9 [place], [place] [address] Assigned Cancer Care Provider 01/01/20 03/18/21 Santi Heller MD [address] [address] Assigned Surgical Provider 01/01/2003/01 Aashish Leone MD Assigned Heart and Vascular Provider 01/01/20 05/07/20 [place] [address] [facility] [address] [place] [address] Assigned Musculoskeletal Provider 01/01/20 07/23/20 Miguel Culver PA-C [address] [place] [address] Assigned Heart and Vascular Provider 05/25/20 04/29/21 [place] [address] [place] [address] Assigned PCP 05/05/22 10/19/22 documented as of this encounter
--- OUTSIDE RECORDS SUMMARY | 2024-01-02 08:38 | XMS_ITS | Encounter Summary ---
Author Organization [place] Address [address] [place] [address]. [place] [address] Care Team Providers Care Instrument Repair Technician Name Role Phone Wesley Dugan MD Primary Care Provider [phone] Wesley Dugan MD Unavailable [phone] Neal Sheth RN Unavailable Unavailable Ella Matias PA-C Unavailable Santi Heller MD Unavailable Aashish Leone MD Unavailable Unavail able Tato Mallory MD Unavailable Chirag Taylor MD Primary Care Provider + Miguel Culver PA-C Unavailable Wesley Dugan MD Unavailable [phone] Reason for Visit * Reason Comments Medication Refill Encounter Details Date Type Department Care Team (Late st Contact Info) Description 02/23/[address] [facility] [address] [place] [address] [place] [address] [place], [place] [id number] Medication Refill Social History Tobacco Use Types Packs/Day Years Used Date Smoking Tobacco: Former Cigarettes 0 1958 - 2016 Smokeless Tobacco: Never Alcohol Use Standard Drinks/Week Comments Not Currently 0 (1 standard drink = 0.6 oz pur e alcohol) PHQ-2 Answer Date Recorded PHQ-2 Score 3 02/27/2019 Sex and Gender Information Value Date Recorded Sex Assigned at Male 03/30/2018 7:28 AM ROD BUSTER Legal Sex Male 12:44 PM CDT Gender Identity Male 03/30/2018 7:28 AM ROD BUSTER Sexual Orientation Straight 02/18/2018 9: 07 AM ROD BUSTER documented as of this encounter Miscellaneous Notes [...] past 12 months Recent Labs Lab Test 10/31/1872201/29/18 1317 CR 0.92 < > -- CREAT -- -- 0.8 < > = values in this interval not displayed. Passed - Normal serum potassium on file in past 12 months Recent Labs Lab Test 10/31/18722 POTASSIUM 3.9 ??? colchicine (COLCRYS) 0.6 MG [...] because: Labs not current: Last uric acid 2017 BUSTER documented in this encounter Plan of Treatment [...] documented as of this encounter Care Teams Instrument Repair Technician Relationship Specialty Start [place] [address] [place] [address] PCP - General Family Practice 03/14/21 [place] [address] [address] PCP - General 03/15/20 03/13/21 [place] [address] [place] [address] Assigned PCP 09/19/14 02/23/22 Nela Sheth RN Personal Advocate & Liaison (PAL) Family Practice 10/13/19 03/14/20 Ella Matias PA-C 909 [place] [address] Assigned Cancer Care Provider 01/01/20 03/18/21 Santi Heller MD 6363 [facility] 500 [place], [place] [address] Assigned Surgical Provider 01/01/2003/01 Aashish Leone MD Assigned Heart and Vascular Provider 01/01/20 05/07/20 [place] [address] [facility] 300 [place] [address] Assigned Musculoskeletal Provider 01/01/20 07/23/20 Miguel Culver PA-C [address] [place] [address] Assigned Heart and Vascular Provider 05/25/20 04/29/21 [place] [address] [place] [address] Assigned PCP 05/05/22 10/19/22 documented as of this encounter
--- OUTSIDE RECORDS SUMMARY | 2024-01-02 08:38 | XMS_ITS | Encounter Summary ---
Author Organization [place] Address [address] [place] [address] Care Team Providers Care Detective Name Role Phone [facility] Unavailable Ana Maravilla MD Primary Care Provide r Unavailable Wesley Dugan MD Primary Care Provider [phone] Laurence Steele RN Unavailable Wesley Dugan MD Unavailable [phone] Wesley Dugan MD Unavailable [phone] Nela Sheth RN Unavailable Unavailable Ella MatiasC Unavailable Santi Heller MD Unavailable [phone] Aashish Leone MD Unavailable Unavail able Tato Mallory MD Unavailable [phone] Chirag Taylor MD Primary Care Provider + Miguel Culver PA-C Unavailable [phone] Wesley Dugan MD Unavailable [phone] Encounter Details Date Type Department Care Team (Late st Contact Info) Description 07/02/2013 Office Visit-[facility] [address] [place] [address] Milagros Manzano, VIDEO RENTAL CLERK RECYCLING WORKER [address] [facility] [address] [place] [address] Social History Tobacco Use Types Packs/Day Years Used Date Smoking Tobacco: Every Day Cigarettes 0.8 53 Smokeless Tobacco: Never Alcohol Use Standard Drinks/Week Comments Yes 0 (1 standard drink = 0.6 oz pur e alcohol) social 2 drinks/week Sex and Gender Information Value Date Recorded Sex Assigned at Male 03/30/2018 7:28 AM TOP LIFT AND AUTOMATIC WINDOW REPAIRER Legal Sex Male 12:44 PM CDT Gender Identity Male 03/30/2018 7:28 AM TOP LIFT AND AUTOMATIC WINDOW REPAIRER Sexual Orientation Straight 02/18/2018 9: 07 AM TOP LIFT AND AUTOMATIC WINDOW REPAIRER documented as of this encounter Progress Notes * Milagros Manzano, POLITICAL RESEARCH SCIENTIST - 07/08/2013 9:34 AM CDT Progress Note Created by: Milagros Manzano, BRIAN [id number] DATE: 07/02/2013 KANDY CANTRELL DATE OF : 1945 AGE: [age] years old Referring Physician: ANA MARAVILLA Referring Clinic: [facility] CURRENT DIAGNOSES 1. - Hyperlipidemia, 272.4 2. [...] ago. He has been treated previously at [facility] for peripheral arterial disease. He underwent [...] [place] year round; REVIEW OF SYSTEMS GENERAL increased [...] (DR/EC), One tablet p.o. daily, #30 (Thirty) [id number] mg capsule,delayed release(DR/EC), 1 p.o. daily, #0 [...] documented as of this encounter Care Teams Detective Relationship Specialty [place] [address] [place] [address] PCP - General Family Practice 03/02/13 12/21/14 [place] [address] [place] [address] PCP - General Family Practice 03/14/21 [place] [address] [place] [address] PCP - Assigned PCP 09/19/14 05/13/18 [place] [address] [facility] [address] [place], [place] [address] PCP - General 03/15/20 03/13/21 [facility] [address] [place] [id number] 02/10/13 03/08/15 Laurence Steele, JARON Clinic Real Estate Services Coordinator Nurse 03/09/15 [place] [address] [place] [address] Assigned PCP 09/19/14 02/23/22 Nela Sheth RN Personal Advocate & Liaison (PAL) Family Practice 10/13/19 03/14/20 Ella Matias, PALizzethC 9 [place] [address] Assigned Cancer Care Provider 01/01/20 03/18/21 Santi Heller MD 6363 [facility] 500 [place] [address] Assigned Surgical Provider 01/01/2003/01 Aashish Leone MD Assigned Heart and Vascular Provider 01/01/20 05/07/20 [place] [address] [address] Assigned Musculoskeletal Provider 01/01/20 07/23/20 Miguel Culver PA-C 6405 [place] [address] Assigned Heart and Vascular Provider 05/25/20 04/29/21 [place] [address] [place] [address] Assigned PCP 05/05/22 10/19/22 documented as of this encounter
--- OUTSIDE RECORDS SUMMARY | 2024-01-02 08:38 | XMS_ITS | Encounter Summary ---
Author Organization [place] Address [address] [place] [address]. [place] [address] Care Team Providers Care Block Paver Name Role Phone Wesley Dugan MD Primary Care Provider [phone] Wesley Dugan MD Unavailable [phone] Nela Sheth RN Unavailable Unavailable Ella Matias PA-C Unavailable Santi Heller MD Unavailable Aashish Leone MD Unavailable Unavail able Tato Mallory MD Unavailable Chirag Taylor MD Primary Care Provider + Miguel Culver PA-C Unavailable [phone] Wesley Dugan MD Unavailable [phone] Reason for Visit * Reason Comments Medication Refill Encounter Details Date Type Department Care Team (Late st Contact Info) Description [facility] [address] [place] [address] [place] [address] [place], [place] [id number] Medication Refill Social History Tobacco Use Types Packs/Day Years Used Date Smoking Tobacco: Former Cigarettes 0 1958 - 2016 Smokeless Tobacco: Never Alcohol Use Standard Drinks/Week Comments Not Currently 0 (1 standard drink = 0.6 oz pur e alcohol) PHQ-2 Answer Date Recorded PHQ-2 Score 2 10/16/2019 Sex and Gender Information Value Date Recorded Sex Assigned at Male 03/30/2018 7:28 AM OCCUPATIONAL THERAPY CO DIRECTOR Legal Sex Male 12:44 PM CDT Gender Identity Male 03/30/2018 7:28 AM OCCUPATIONAL THERAPY CO DIRECTOR Sexual Orientation Straight 02/18/2018 9: 07 AM OCCUPATIONAL THERAPY CO DIRECTOR documented as of this encounter Miscellaneous Notes * Telephone Encounter - Chen Ruiz RN - 12/15/2019 1:04 PM CDT Routing refill request to provider for review/approval because: Drug not on the [facility] refill protocol Chen Ruiz RN [facility] -- Triage Nurse documented in this encounter Plan of Treatment Not on file documented as of this encounter Visit Diagnoses Diagnosis Peripheral polyneuropathy Unspecified hereditary and idiopathic peripheral neuropathy Chronic pain syndrome documented in this encounter Additional Health Concerns Assessment Noted Time PHQ-9 Depression Total Score: 7 10/16/19 20 7:11 AM CDT documented as of this encounter Care Teams Block Paver Relationship Specialty [place] [address] [place] [address] PCP - General Family Practice 03/14/21 [place] [address] [address] PCP - General 03/15/20 03/13/21 [place] [address] [place] [address] Assigned PCP 09/19/14 02/23/22 Nela Sheth RN Personal Advocate & Liaison (PAL) Family Practice 10/13/19 03/14/20 Ella Matias PA-C 909 [place] [address] Assigned Cancer Care Provider 01/01/20 03/18/21 Santi Heller MD 6363 [facility] 500 [place], [place] [address] Assigned Surgical Provider 01/01/2003/01 Aashish Leone MD Assigned Heart and Vascular Provider 01/01/20 05/07/20 [place] [address] [facility] 300 [place] [address] Assigned Musculoskeletal Provider 01/01/20 07/23/20 Miguel Culver PA-C 6405 [facility] [place] [address] Assigned Heart and Vascular Provider 05/25/20 04/29/21 [place] [address] [place] [address] Assigned PCP 05/05/22 10/19/22 documented as of this encounter
--- OUTSIDE RECORDS SUMMARY | 2024-01-02 08:38 | XMS_ITS | Encounter Summary ---
Author Organization [place] Address [address] [place] [address]. [place] [address] Care Team Providers Care Photovoltaic Installer Name Role Phone Wesley Dugan MD Primary Care Provider [phone] Laurence Steele RN Unavailable [phone] Wesley Dugan MD Unavailable [phone] Wesley Dugan MD Unavailable [phone] Nela Sheth RN Unavailable Unavailable Ella Matias PA-C Unavailable Santi Heller MD Unavailable Aashish Leone MD Unavailable Unavail able Tato Mallory MD Unavailable [phone] Chirag Taylor MD Primary Care Provider + Miguel Culver PA-C Unavailable Wesley Dugan MD Unavailable [phone] Reason for Visit * Reason Onset Date Comments Medication Question 03/23/2015 Probiotic Encounter Details Date Type Department Care Team (Late st Contact Info) Description 03/23/2015 [facility] Medical Advice [address] [address] Wesley Dugna MD [address] [place] [address] Medication Question (Probiotic) Social History Tobacco Use Types Packs/Day Years Used Date Smoking Tobacco: Every Day Cigarettes 1 65.2 Started: 1957 Smokeless Tobacco: Never Comments:Trying to quit cut down to 1/2 pack daily Alcohol Use Standard Drinks/Week Comments Yes 0 (1 standard drink = 0.6 oz pur e alcohol) 1+ drink per day Sex and Gender Information Value Date Recorded Sex Assigned at Male 03/30/2018 7:28 AM ENVIRONMENTAL ENGINEERING PROFESSOR Legal Sex Male 12:44 PM CDT Gender Identity Male 03/30/2018 7:28 AM ENVIRONMENTAL ENGINEERING PROFESSOR Sexual Orientation Straight 02/18/2018 9: 07 AM ENVIRONMENTAL ENGINEERING PROFESSOR documented as of this encounter Miscellaneous Notes * Telephone Encounter - Wesley Dugan MD - 03/23/2015 4:46 PM CST culturelle is fine Still having diarrhea? Wesley Dugan RONMENTAL ENGINEERING PROFESSOR * Telephone Encounter - Karo Saini RN - 03/23/2015 9:[address] Dugan-see [employer] message below. Please advise. Karo Saini RN RONMENTAL ENGINEERING PROFESSOR documented in this encounter Plan of Treatment Not on file documented as of this encounter Visit Diagnoses Not on filedocumented in this encounter Additional Health Concerns Infection Onset Date Last Indicated Resolved Time Rule Out COVID-19 07/27/2019 07/27/2019 07/27/2019 10:15 PM CDT Assessment Noted Time PHQ-9 Depression Total Score: 15 015 7:16 AM CDT documented as of this encounter Care Teams Photovoltaic Installer Relationship Specialty [place] [address] [place] [address] PCP - General Family Practice 03/14/21 [place] [address] [place] [address] PCP - Assigned PCP 09/19/14 05/13/18 [place] [address] [address] PCP - General 03/15/20 03/13/21 Laurence Steele, JARON Clinic Contract Paralegal Nurse 03/09/15 [place] [address] [place] [address] Assigned PCP 09/19/14 02/23/22 Nela Sheth RN Personal Advocate & Liaison (PAL) Family Practice 10/13/19 03/14/20 Ella Matias PA-C 9 [place] [address] Assigned Cancer Care Provider 01/01/20 03/18/21 Sanit Heller MD [address] [address] Assigned Surgical Provider 01/01/2003/01 Aashish Leone MD Assigned Heart and Vascular Provider 01/01/20 05/07/20 [place] [address] [address] Assigned Musculoskeletal Provider 01/01/20 07/23/20 Miguel Culver PA-C 6405 [place] [address] Assigned Heart and Vascular Provider 05/25/20 04/29/21 [place] [address] [place] [address] Assigned PCP 05/05/22 10/19/22 documented as of this encounter
--- OUTSIDE RECORDS SUMMARY | 2024-01-02 08:38 | XMS_ITS | Encounter Summary ---
Author Organization [place] Address [address] [place] [address]. [place] [address] Care Team Providers Care Machine Tool Technician Instructor Name Role Phone Wesley Dugan MD Primary Care Provider [phone] Wesley Dugan MD Unavailable [phone] Nela Sheth RN Unavailable Unavailable Ella Matias PA-C Unavailable Santi Heller MD Unavailable Aashish Leone MD Unavailable Unavail able Tato Mallory MD Unavailable [phone] Chirag Taylor MD Primary Care Provider + Miguel Culver PA-C Unavailable [phone] Wesley Dugan MD Unavailable [phone] Reason for Visit * Reason Onset Date Comments Medication Refill Refill Request 01/12/2020 Encounter Details Date Type Department Care Team (Late st Contact Info) Description 01/11/2020 Refill [facility] [address] [place] [address] [place] [address] [place], [place] [id number] Medication Refill; Refill Request Social History Tobacco Use Types Packs/Day Years Used Date Smoking Tobacco: Former Cigarettes 0 1958 - 2016 Smokeless Tobacco: Never Alcohol Use Standard Drinks/Week Comments Not Currently 0 (1 standard drink = 0.6 oz pur e alcohol) PHQ-2 Answer Date Recorded PHQ-2 Score 2 10/16/2019 Sex and Gender Information Value Date Recorded Sex Assigned at Male 03/30/2018 7:28 AM ERGONOMICS CONSULTANT Legal Sex Male 12:44 PM CDT Gender Identity Male 03/30/2018 7:28 AM ERGONOMICS CONSULTANT Sexual Orientation Straight 02/18/2018 9: 07 AM ERGONOMICS CONSULTANT COVID-19 Exposure Response Date Recorded In the last month, have you been in contact with someone who was confirmed or suspected to have Coronavirus / COVID-19? No / Unsure 01/07/2020 7:50 AM CDT documented as of this encounter Miscellaneous Notes * Telephone Encounter - Wesley Dugan MD - 01/11/2020 12:03 PM CST Sent Needs visit virtual Dec Wesley Dugan MD NOMICS CONSULTANT * Telephone Encounter - Brooklyn Katz RN - 01/11/2020 10:23 AM ERGONOMICS CONSULTANT Routing refill request to provider for review/approval because: Drug not on the [facility] refill protocol Brokolyn Katz RN on 01/11/2020 at 10:23 AM NOMICS CONSULTANT documented in this encounter Plan of Treatment Not on file documented as of this encounter Visit Diagnoses Diagnosis Peripheral polyneuropathy Unspecified hereditary and idiopathic peripheral neuropathy Chronic pain syndrome documented in this encounter Additional Health Concerns Assessment Noted Time PHQ-9 Depression Total Score: 7 10/16/19 20 7:11 AM CDT documented as of this encounter Care Teams Machine Tool Technician Instructor Relationship Specialty [place] [address] [place] [address] PCP - General Family Practice 03/14/21 [place] [address] [facility] 300 [place] [address] PCP - General 03/15/20 03/13/21 [place] [address] [place] [address] Assigned PCP 09/19/14 02/23/22 Nela Shteh, RN Personal Advocate & Liaison (PAL) Family Practice 10/13/19 03/14/20 Ella Matias PA-C [address] [place] [address] Assigned Cancer Care Provider 01/01/20 03/18/21 Santi Heller MD [address] [address] Assigned Surgical Provider 01/01/2003/01 Aashish Leone MD Assigned Heart and Vascular Provider 01/01/20 05/07/20 [place] [address] [facility] 300 [place] [address] Assigned Musculoskeletal Provider 01/01/20 07/23/20 Miguel Culver PA-C 6405 [facility] [place], [place] [address] Assigned Heart and Vascular Provider 05/25/20 04/29/21 [place] [address] [place] [address] Assigned PCP 05/05/22 10/19/22 documented as of this encounter
--- OUTSIDE RECORDS SUMMARY | 2024-01-02 08:38 | XMS_ITS | Encounter Summary ---
Author Organization [place] Address [address] [place] [address]. [place] [address] Care Team Providers Care Museum Exhibit Technician Name Role Phone [facility] Unavailable Lashonda Maravilla MD Primary Care Provide r Unavailable Wesley Dugan MD Primary Care Provider [phone] Laurence Steele RN Unavailable Wesley Dugan MD Unavailable [phone] Wesley Dugan MD Unavailable Nela Sheth RN Unavailable Unavailable Ella MatiasC Unavailable Santi Heller MD Unavailable [phone] Aashish Leone MD Unavailable Unavail able Tato Mallory MD Unavailable [phone] Chirag Taylor MD Primary Care Provider + Miguel Culver PA-C Unavailable [phone] Wesley Dugan MD Unavailable [phone] Encounter Details Date Type Department Care Team (Late st Contact Info) Description 04/28/2013 Office Visit-[facility] [place] [address] [facility] [address] [place] [address] Leopoldo Mallory MD [address] [facility] [address] [place] [address] Social History Tobacco Use Types Packs/Day Years Used Date Smoking Tobacco: Every Day Cigarettes 1 53 Smokeless Tobacco: Never Alcohol Use Standard Drinks/Week Comments Yes 0 (1 standard drink = 0.6 oz pur e alcohol) social 2 drinks/week Sex and Gender Information Value Date Recorded Sex Assigned at Male 03/30/2018 7:28 AM BUILDING CONSTRUCTION PROFESSOR Legal Sex Male 12:44 PM CDT Gender Identity Male 03/30/2018 7:28 AM BUILDING CONSTRUCTION PROFESSOR Sexual Orientation Straight 02/18/2018 9: 07 AM BUILDING CONSTRUCTION PROFESSOR documented as of this encounter Progress Notes * Leopoldo Mallory MD - 04/28/2013 10:17 AM CST Progress Note Created by: Leopoldo Mallory MD DATE: 04/23/2013 KANDY CANTRELL DATE OF : 1945 AGE: [age] years old Referring Physician: LEOPOLDO GARDUNO Referring Clinic: [facility] CURRENT DIAGNOSES 1. - Hyperlipidemia, 272.4 2. [...] He has had been treated previously at [facility]. I have reviewed his records. He had [...] - lives with, daughter and lives in [place] year round; REVIEW OF SYSTEMS GENERAL increased [...] documented as of this encounter Care Teams Museum Exhibit Technician Relationship Specialty Start [place] [address] [place] [address] PCP - General Family Practice 03/02/13 12/21/14 [place]ug[place] [address] [place] [address] PCP - General Family Practice 03/14/21 [place] [address] [place] [address] PCP - Assigned PCP 09/19/14 05/13/18 [place] [address] [address] PCP - General 03/15/20 03/13/[address] [address] 02/10/13 03/08/15 Laurence Steele RN Clinic Poker Room Manager Nurse 03/09/15 [place]ug[place] [address] [place] [address] Assigned PCP 09/19/14 02/23/22 Nela Sheth RN Personal Advocate & Liaison (PAL) Family Practice 10/13/19 03/14/20 Ella Matias, PA-C [address] [place] [address] Assigned Cancer Care Provider 01/01/20 03/18/21 Santi Heller MD 6363 [facility] 500 [place], [place] [address] Assigned Surgical Provider 01/01/2003/01 Aashish Leone MD Assigned Heart and Vascular Provider 01/01/20 05/07/20 [place] [address] [facility] 300 [place] [address] Assigned Musculoskeletal Provider 01/01/20 07/23/20 Miguel Culver, ROSEMARIE 6405 [place] [address] Assigned Heart and Vascular Provider 05/25/20 04/29/21 [place] [address] [place] [address] Assigned PCP 05/05/22 10/19/22 documented as of this encounter
--- OUTSIDE RECORDS SUMMARY | 2024-01-02 08:38 | XMS_ITS | Encounter Summary ---
Author Organization [place] Address [address] [place] [address] Care Team Providers Care Core Drill Operator Name Role Phone Wesley Dugan MD Primary Care Provider [phone] Laurence Steele RN Unavailable Wesley Dugan MD Unavailable [phone] Wesley Dugan MD Unavailable [phone] Nela Sheth RN Unavailable Unavailable Ella Matias PA-C Unavailable Santi Heller MD Unavailable [phone] Aashish Leone MD Unavailable Unavail able Tato Mallory MD Unavailable Chirag Taylor MD Primary Care Provider + Miguel Culver PA-C Unavailable Wesley Dugan MD Unavailable [phone] Encounter Details Date Type Department Care Team (Late st Contact Info) Description 01/30/2016 [facility] [address] [place] [address] Hans Schultz MD [address] [place] [address] Social History Tobacco Use Types [...] Sex Assigned at Male 03/30/2018 7:28 AM RIVET FLUNKY Legal Sex Male 12:44 PM CDT Gender Identity Male 03/30/2018 7:28 AM RIVET FLUNKY Sexual Orientation Straight 02/18/2018 9: 07 AM RIVET FLUNKY documented as of this encounter Plan of Treatment Not on file documented as of this encounter Visit Diagnoses Not on filedocumented in this encounter Additional Health Concerns Infection Onset Date Last Indicated Resolved Time Rule Out COVID-19 07/27/2019 07/27/2019 07/27/2019 10:15 PM CDT Assessment Noted Time PHQ-9 Depression Total Score: 13 016 7:18 AM CDT documented as of this encounter Care Teams Core Drill Operator Relationship Specialty Start [place] [address] [place] [address] PCP - General Family Practice 03/14/21 [place] [address] [place] [address] PCP - Assigned PCP 09/19/14 05/13/18 [place] [address] [address]32[address] PCP - General 03/15/20 03/13/21 Laurence Steele, JARON Clinic Switch Foreman Nurse 03/09/15 [place] [address] [place] [address] Assigned PCP 09/19/14 02/23/22 Nela Sheth, RN Personal Advocate & Liaison (PAL) Family Practice 10/13/19 03/14/20 Ella Matias PA-C 909 [place] [address] Assigned Cancer Care Provider 01/01/20 03/18/21 Santi Heller MD [address] [facility] [address] [address] Assigned Surgical Provider 01/01/2003/01 Aashish Leone MD Assigned Heart and Vascular Provider 01/01/20 05/07/20 [place] [address] [facility] 300 [place] [address] Assigned Musculoskeletal Provider 01/01/20 07/23/20 Miguel Culver PA-C [address] [facility] [address] Assigned Heart and Vascular Provider 05/25/20 04/29/21 [place] [address] [place] [address] Assigned PCP 05/05/22 10/19/22 documented as of this encounter
--- OUTSIDE RECORDS SUMMARY | 2024-01-02 08:38 | XMS_ITS | Encounter Summary ---
Author Organization [place] Address [address] [place] [address]. [place] [address] Care Team Providers Care Air Carrier Operations Inspector Name Role Phone Wesley Dugan MD Primary Care Provider [phone] Wesley Dugan MD Unavailable [phone] Nela Sheth RN Unavailable Unavailable Ella Matias PA-C Unavailable Santi Heller MD Unavailable [phone] Aashish Leone MD Unavailable Unavail able Tato Mallory MD Unavailable Chirag Taylor MD Primary Care Provider + Miguel Culver PA-C Unavailable [phone] Wesley Dugan MD Unavailable [phone] Reason for Visit * Reason Comments Medication Refill Encounter Details Date Type Department Care Team (Late st Contact Info) Description [facility] [address] [place] [address] [place] [address] [place], [place] [id number] Medication Refill Social History Tobacco Use Types Packs/Day Years Used Date Smoking Tobacco: Former Cigarettes 0 1958 - 2016 Smokeless Tobacco: Never Alcohol Use Standard Drinks/Week Comments Not Currently 0 (1 standard drink = 0.6 oz pur e alcohol) PHQ-2 Answer Date Recorded PHQ-2 Score 2 10/16/2019 Sex and Gender Information Value Date Recorded Sex Assigned at Male 03/30/2018 7:28 AM SILK BLOCKER Legal Sex Male 12:44 PM CDT Gender Identity Male 03/30/2018 7:28 AM SILK BLOCKER Sexual Orientation Straight 02/18/2018 9: 07 AM SILK BLOCKER documented as of this encounter Miscellaneous Notes * Telephone Encounter - Naida Vasquez RN - 12/11/2019 11:27 AM CDT Prescription approved per [facility] Refill Protocol. Naida Vasquez RN Flex documented in this encounter Plan of Treatment Not on file documented as of this encounter Visit Diagnoses Diagnosis Panlobular emphysema (H) Other emphysema documented in this encounter Additional Health Concerns Assessment Noted Time PHQ-9 Depression Total Score: 7 10/16/19 20 7:11 AM CDT documented as of this encounter Care Teams Air Carrier Operations Inspector Relationship Specialty Start [place] [address] [place] [address] PCP - General Family Practice 03/14/21 Chirag Taylor MD [address] [place] [address] PCP - General 03/15/20 03/13/21 [place] [address] [place] [address] Assigned PCP 09/19/14 02/23/22 Nela Sheth RN Personal Advocate & Liaison (PAL) Family Practice 10/13/19 03/14/20 Ella Matias, PALizzethC 9[address] [place] [address] Assigned Cancer Care Provider 01/01/20 03/18/21 Santi Heller MD 6363 [facility] 500 [place] [address] Assigned Surgical Provider 01/01/2003/01 Aashish Leone MD Assigned Heart and Vascular Provider 01/01/20 05/07/20 [place] [address] [facility] 300 [place] [address] Assigned Musculoskeletal Provider 01/01/20 07/23/20 Miguel Culver PA-C 6405 [place] [address] Assigned Heart and Vascular Provider 05/25/20 04/29/21 [place] [address] [place] [address] Assigned PCP 05/05/22 10/19/22 documented as of this encounter
--- OUTSIDE RECORDS SUMMARY | 2024-01-02 08:38 | XMS_ITS | Encounter Summary ---
Author Organization [place] Address [address] [place] [address]. [place] [address] Care Team Providers Care Cinder Pit Crane Operator Name Role Phone Wesley Dugan MD Primary Care Provider [phone] Wesley Dugan MD Unavailable [phone] Nela Sheth RN Unavailable Unavailable Ella Matias PA-C Unavailable Santi Heller MD Unavailable [phone] Aashish Leone MD Unavailable Unavail able Tato Mallory MD Unavailable Chirag Taylor MD Primary Care Provider + Miguel Culver PA-C Unavailable Wesley Dugan MD Unavailable Reason for Visit * Reason Comments Medication Refill Encounter Details Date Type Department Care Team (Late st Contact Info) Description 08/26/2019 Refill [facility] [address] [place] [address] [place] [address] [place], [place] [id number] Medication Refill Social History Tobacco Use Types Packs/Day Years Used Date Smoking Tobacco: Former Cigarettes 0 1958 - 2016 Smokeless Tobacco: Never Alcohol Use Standard Drinks/Week Comments Not Currently 0 (1 standard drink = 0.6 oz pur e alcohol) PHQ-2 Answer Date Recorded PHQ-2 Score 0 08/17/2019 Sex and Gender Information Value Date Recorded Sex Assigned at Male 03/30/2018 7:28 AM HAZMAT CDL DRIVER Legal Sex Male 12:44 PM CDT Gender Identity Male 03/30/2018 7:28 AM HAZMAT CDL DRIVER Sexual Orientation Straight 02/18/2018 9: 07 AM HAZMAT CDL DRIVER COVID-19 Exposure Response Date Recorded In the last month, have you been in contact with someone who was confirmed or suspected to have Coronavirus / COVID-19? No / Unsure 08/28/2019 8:30 AM CDT documented as of this encounter Miscellaneous Notes * Telephone Encounter - Charlotte Castro RN - 08/26/2019 1:13 PM CDT Medication refilled per [facility] protocol Charlotte Castro RN documented in this encounter Plan of Treatment Not on file documented as of this encounter Visit Diagnoses Diagnosis Hx of coronary artery disease Personal history of other diseases of circulatory system documented in this encounter Additional Health Concerns Assessment Noted Time PHQ-9 Depression Total Score: 8 08/15/19 20 7:03 AM CDT documented as of this encounter Care Teams Cinder Pit Crane Operator Relationship Specialty [place] [address] [place] [address] PCP - General Family Practice 03/14/21 [place] [address] [address] PCP - General 03/15/20 03/13/21 [place] [address] [place] [address] Assigned PCP 09/19/14 02/23/22 Nela Sheth, RN Personal Advocate & Liaison (PAL) Family Practice 10/13/19 03/14/20 Ella Matias PA-C 909 [place] [address] Assigned Cancer Care Provider 01/01/20 03/18/21 Santi Heller MD 6363 [facility] 500 [place] [address] Assigned Surgical Provider 01/01/2003/01 Aashish Leone MD Assigned Heart and Vascular Provider 01/01/20 05/07/20 [place] [address] [facility] 300 [place] [address] Assigned Musculoskeletal Provider 01/01/20 07/23/20 Miguel Culver PA-C 6405 [place] [address] Assigned Heart and Vascular Provider 05/25/20 04/29/21 [place] [address] [place], [place] [address] Assigned PCP 05/05/22 10/19/22 documented as of this encounter
--- OUTSIDE RECORDS SUMMARY | 2024-01-02 08:38 | XMS_ITS | Encounter Summary ---
Author Organization [place] Address [address] [place] [address] Care Team Providers Care Student Services Director Name Role Phone [facility] Unavailable Lashonda Maravilla MD Primary Care Provide r Unavailable Wesley Dugan MD Primary Care Provider [phone] Laurence Steele RN Unavailable Wesley Dugan MD Unavailable [phone] Wesley Dguan MD Unavailable [phone] Nela Sheth RN Unavailable Unavailable Ella MatiasC Unavailable Santi Heller MD Unavailable [phone] Aashish Leone MD Unavailable Unavail able Tato Mallory MD Unavailable [phone] Chirag Taylor MD Primary Care Provider + Miguel CulverC Unavailable [phone] Wesley Dugan MD Unavailable [phone] Encounter Details Date Type Department Care Team (Late st Contact Info) Description 04/07/2013 Office Visit-[facility] [address] [place] [address] Milagros Garrido MD HEART [facility] [address] [place] [id number] Social History Tobacco Use Types Packs/Day Years Used Date Smoking Tobacco: Every Day Cigarettes 1 53 Smokeless Tobacco: Never Alcohol Use Standard Drinks/Week Comments Yes 0 (1 standard drink = 0.6 oz pur e alcohol) social 2 drinks/week Sex and Gender Information Value Date Recorded Sex Assigned at Male 03/30/2018 7:28 AM RESTAURANT KITCHEN MANAGER Legal Sex Male 12:44 PM CDT Gender Identity Male 03/30/2018 7:28 AM RESTAURANT KITCHEN MANAGER Sexual Orientation Straight 02/18/2018 9: 07 AM RESTAURANT KITCHEN MANAGER documented as of this encounter Progress Notes * Milagros Garrido MD - 04/08/2013 8:34 AM CST Progress Note Created by: Milagros Garrido M.D. [id number] DATE: 04/07/2013 KANDY CANTRELL DATE OF : 1945 AGE: [age] years old Referring Physician: SARMAD GARDUNO Referring Clinic: [facility] CURRENT DIAGNOSES 1. - Hyperlipidemia, [...] a six vessel bypass in 1996 in [place]. According to the patient, he had a stent repair of a AAA one year ago with repair of the arteries in his groin area. This was done at [facility]. Review of the available records suggests that he did have a right femoral endarterectomy with a pericardial patch angioplasty and infrarenal abdominal aortic aneurysm repair with an [id number] stent graft and a two piece graft [...] encouraged him to follow up with the abrasive mixer helper to determine when he could restart that [...] doppler 1 Day 2. F/U with Any RESIDENTIAL CARE OFFICER 7-14 days 3. Lexiscan Infusion 2 Days, able to convert to treadmill stress if pt able to exercise 4. Pulmonary Consult[place] [facility] [place] [facility] [place] 5. Pulmonary Function Test Schedule at [facility] Milagros Garrido M.D. documented in this encounter Plan of Treatment Not on file documented as of this encounter Visit Diagnoses Not on filedocumented in this encounter Additional Health Concerns Infection Onset Date Last Indicated Resolved Time Rule Out COVID-19 07/27/2019 07/27/2019 07/27/2019 10:15 PM CDT documented as of this encounter Care Teams Student Services Director Relationship Specialty Start [place] [address] [place] [address] PCP - General Family Practice 03/02/13 12/21/14 [place] [address] [place] [address] PCP - General Family Practice 03/14/21 [place] [address] [place] [address] PCP - Assigned PCP 09/19/14 05/13/18 [place] [address] [address] PCP - General 03/15/20 03/13/21 [facility] [address] [place] [address] 02/10/13 03/08/15 Laurence Steele, JARON Clinic Steel Loader Nurse 03/09/15 [place] [address] [place] [address] Assigned PCP 09/19/14 02/23/22 Nela Sheth, RN Personal Advocate & Liaison (PAL) Family Practice 10/13/19 03/14/20 Ella Matias PA-C 909 [place] [address] Assigned Cancer Care Provider 01/01/20 03/18/21 Santi Heller MD 6363 [facility] 500 [place] [address] Assigned Surgical Provider 01/01/2003/01 Aashish Leone MD Assigned Heart and Vascular Provider 01/01/20 05/07/20 [place] [address] [facility] 300 [place] [address] Assigned Musculoskeletal Provider 01/01/20 07/23/20 Miguel Culver PA-C [address] [facility] [place] [address] Assigned Heart and Vascular Provider 05/25/20 04/29/21 [place] [address] [place] [address] Assigned PCP 05/05/22 10/19/22 documented as of this encounter
--- OUTSIDE RECORDS SUMMARY | 2024-01-02 08:38 | XMS_ITS | Encounter Summary ---
Author Organization [facility] Address [address] [place] [address]. [place] [address] Care Team Providers Care Purse Seiner Name Role Phone Wesley Dugan MD Primary Care Provider [phone] Wesley Dugan MD Unavailable [phone] Nela Sheth RN Unavailable Unavailable Ella Matias PA-C Unavailable Santi Heller MD Unavailable [phone] Aashish Leone MD Unavailable Unavail able Tato Mallory MD Unavailable [phone] Chirag Taylor MD Primary Care Provider + Miguel Culver PA-C Unavailable [phone] Wesley Dugan MD Unavailable [phone] Reason for Visit * Reason Onset Date Comments Call Back 10/12/2019 after 1pm call B ack- 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 Please call Butch at: [phone] Encounter Details Date Type Department Care Team (Late st Contact Info) Description 10/12/2019 Telephone [facility] [place] [address] [place] [address] Santi Heller MD [address] [place] [address] Call Back (after 1pm call Back- 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 Please call Butch at: [phone]) Social History Tobacco Use Types Packs/Day Years Used Date Smoking Tobacco: Former Cigarettes 0 1958 - 2016 Smokeless Tobacco: Never Alcohol Use Standard Drinks/Week Comments Not Currently 0 (1 standard drink = 0.6 oz pur e alcohol) PHQ-2 Answer Date Recorded PHQ-2 Score 2 10/16/2019 Sex and Gender Information Value Date Recorded Sex Assigned at Male 03/30/2018 7:28 AM BAG MACHINE TENDER Legal Sex Male 12:44 PM CDT Gender Identity Male 03/30/2018 7:28 AM BAG MACHINE TENDER Sexual Orientation Straight 02/18/2018 9: 07 AM BAG MACHINE TENDER COVID-19 Exposure Response Date Recorded In the last month, have you been in contact with someone who was confirmed or suspected to have Coronavirus / COVID-19? No / Unsure 09/16/2019 8:12 AM CDT documented as of this encounter Miscellaneous Notes * Telephone Encounter - Fide Garcia - 10/12/2019 10:38 AM CDT [facility] Call Center Phone Message May a detailed message be left on voicemail: no Reason for Call: Other: after 1pm call Back- 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 Please call Butch at: [phone] Action Taken: Message routed to: [facility] Clinical Pool Travel Screening: Not Applicable documented in this encounter Plan of Treatment Not on file documented as of this encounter Visit Diagnoses Not on filedocumented in this encounter Additional Health Concerns Assessment Noted Time PHQ-9 Depression Total Score: 8 08/15/19 20 7:03 AM CDT documented as of this encounter Care Teams Purse Seiner Relationship Specialty [place] [address] [place] [address] PCP - General Family Practice 03/14/21 [place] [address] [address] PCP - General 03/15/20 03/13/21 [place] [address] [place] [address] Assigned PCP 09/19/14 02/23/22 Nela Sheth, RN Personal Advocate & Liaison (PAL) Family Practice 10/13/19 03/14/20 Ella Matias PA-C [address] [place] [address] Assigned Cancer Care Provider 01/01/20 03/18/21 Santi Heller MD 6363 [facility] [address] [address] Assigned Surgical Provider 01/01/2003/01 Aashish Leone MD Assigned Heart and Vascular Provider 01/01/20 05/07/20 [place] [address] [address] Assigned Musculoskeletal Provider 01/01/20 07/23/20 Miguel Culver PA-C 6[address] [facility] [place] [address] Assigned Heart and Vascular Provider 05/25/20 04/29/21 [place] [address] [place] [address] Assigned PCP 05/05/22 10/19/22 documented as of this encounter
--- OUTSIDE RECORDS SUMMARY | 2024-01-02 08:38 | XMS_ITS | Encounter Summary ---
Author Organization [place] Address [address] [place] [address] Care Team Providers Care Belting And Webbing Inspector Name Role Phone [facility] Unavailable Lashonda Maravilla MD Primary Care Provide r Unavailable Wesley Dugan MD Primary Care Provider [phone] Laurence Steele RN Unavailable [phone] Wesley Dugan MD Unavailable [phone] Wesley Dugan MD Unavailable [phone] Nela Sheth RN Unavailable Unavailable Ella Matias PA-C Unavailable Santi Heller MD Unavailable [phone] Aashish Leone MD Unavailable Unavail able Tato Mallory MD Unavailable [phone] Chirag Taylor MD Primary Care Provider + Miguel Culver PA-C Unavailable [phone] Wesley Dugan MD Unavailable [phone] Encounter Details Date Type Department Care Team (Late st Contact Info) Description 04/13/2013 [facility] [address] [address] Lashonda Maravilla MD NO INFO AVAILABLE 07/12/2022 Social History Tobacco Use Types Packs/Day Years Used Date Smoking Tobacco: Every Day Cigarettes 1 53 Smokeless Tobacco: Never Alcohol Use Standard Drinks/Week Comments Yes 0 (1 standard drink = 0.6 oz pur e alcohol) social 2 drinks/week Sex and Gender Information Value Date Recorded Sex Assigned at Male 03/30/2018 7:28 AM BRAKER PASSENGER TRAIN Legal Sex Male 12:44 PM CDT Gender Identity Male 03/30/2018 7:28 AM BRAKER PASSENGER TRAIN Sexual Orientation Straight 02/18/2018 9: 07 AM BRAKER PASSENGER TRAIN documented as of this encounter Plan of Treatment Not on file documented as of this encounter Visit Diagnoses Not on filedocumented in this encounter Additional Health Concerns Infection Onset Date Last Indicated Resolved Time Rule Out COVID-19 07/27/2019 07/27/2019 07/27/2019 10:15 PM CDT documented as of this encounter Care Teams Belting And Webbing Inspector Relationship Specialty Start Date [place]onda [place] [id number] [place] [place] [address] PCP - General Family Practice 03/02/13 12/21/14 [place] [address] [place] [address] PCP - General Family Practice 03/14/21 [place] [address] [place] [address] PCP - Assigned PCP 09/19/14 05/13/18 [place] [address] [address] PCP - General 03/15/20 03/13/21 [facility] [address] [place] [address] 02/10/13 03/08/15 Laurence Steele RN Clinic Muskrat Trapper Nurse 03/09/15 [place] [address] [place] [address] Assigned PCP 09/19/14 02/23/22 Nela Sheth, RN Personal Advocate & Liaison (PAL) Family Practice 10/13/19 03/14/20 Ella Matias PA-C 909 [place], [place] [address] Assigned Cancer Care Provider 01/01/20 03/18/21 Santi Heller MD [address] [address] Assigned Surgical Provider 01/01/2003/01 Aashish Leone MD Assigned Heart and Vascular Provider 01/01/20 05/07/20 [place] [address] [facility] 300 [place] [address] Assigned Musculoskeletal Provider 01/01/20 07/23/20 Miguel Culver PA-C 6405 [place] [address] Assigned Heart and Vascular Provider 05/25/20 04/29/21 [place] [address] [place] [address] Assigned PCP 05/05/22 10/19/22 documented as of this encounter
--- OUTSIDE RECORDS SUMMARY | 2024-01-02 08:38 | XMS_ITS | Encounter Summary ---
Author Organization [place] Address [address] [place] [address] Care Team Providers Care Manufacturing Leader Name Role Phone Wesley Dugan MD Primary Care Provider [phone] Wesley Dugan MD Unavailable [phone] Nela Sheth RN Unavailable Unavailable Ella Matias PA-C Unavailable Santi Heller MD Unavailable [phone] Aashish Leone MD Unavailable Unavail able Tato Mallory MD Unavailable Chirag Taylor MD Primary Care Provider + Miguel Culver PA-C Unavailable Wesley Dugan MD Unavailable [phone] Reason for Visit * Reason Onset Date Comments Referral 08/18/2019 Pt being referre d for Dysuria/Benign prostatic hyperplasia with weak urinary stream, records and referral in [facility] Referral 08/18/2019 pt is calling ab out the referral, hoping to get a call today Encounter Details Date Type Department Care Team (Late st Contact Info) Description 08/18/2019 Telephone [facility]rology and Inst for Prostate and Urologic Cancers 909 [facility] 4th [place] [address] Unknown Referral (Pt being referred for Dysuria/Benign prostatic hyperplasia with weak urinary stream, records and referral in [facility]); Referral (pt is calling about the referral, [...] Sex Assigned at Male 03/30/2018 7:28 AM BULK PALLET BUILDER Legal Sex Male 12:44 PM CDT Gender Identity Male 03/30/2018 7:28 AM BULK PALLET BUILDER Sexual Orientation Straight 02/18/2018 9: 07 AM BULK PALLET BUILDER COVID-19 Exposure Response Date Recorded In the [...] have his ER follow up done at [facility] urology department not here at the [facility]. Please call patient to coordinate this appointment. Thanks, Lefty Felipe MA * Telephone Encounter - Jeannine Zavala - 08/21/2019 2:24 PM CDT [facility] Call Center Phone Message May a detailed message be left on voicemail: yes Reason for Call: Other: Pt is still waiting to hear from the clinic. Please call him back AN as he is having extreme burning and does not want to go the whole weekend without talking to someone. Action Taken: Message routed to: Other: [facility] Travel Screening: Not Applicable * Telephone Encounter - Danette Ye - 08/20/2019 9:17 AM CDT [facility] Call Center Phone Message May a detailed message be left on voicemail: yes Reason for Call: Other: pt would like to get in AN. He has burning pain. Please call to schedule. Action Taken: Message routed to: [facility] ([facility]): urology Travel Screening: Not Applicable * Telephone Encounter - Aracely Carrasco - 08/18/2019 2:30 PM CDT [facility] Call [facility] Phone Message May a detailed message be left on voicemail: yes Reason for Call: Other: Pt being referred for Dysuria/Benign prostatic hyperplasia with weak urinary stream, records and referral in epic Action Taken: Message routed to: [facility] ([facility]): urology. Travel Screening: Not Applicable documented in this encounter Plan of Treatment Not on file documented as of this encounter Visit Diagnoses Not on filedocumented in this encounter Additional Health Concerns Assessment Noted Time PHQ-9 Depression Total Score: 8 08/15/19 20 7:03 AM CDT documented as of this encounter Care Teams Manufacturing Leader Relationship Specialty [place] [address] [place] [address] PCP - General Family Practice 03/14/21 Chirag Taylor MD [address] [place] [address] PCP - General 03/15/20 03/13/21 [place] [address] [place] [address] Assigned PCP 09/19/14 02/23/22 Nela Sheth RN Personal Advocate & Liaison (PAL) Family Practice 10/13/19 03/14/20 Ella Matias PA-C 909 [place] [address] Assigned Cancer Care Provider 01/01/20 03/18/21 Santi Heller MD 6363 [facility] 500 [place] [address] Assigned Surgical Provider 01/01/2003/01 Aashish Leone MD Assigned Heart and Vascular Provider 01/01/20 05/07/20 [place] [address] [facility] 300 [place] [address] Assigned Musculoskeletal Provider 01/01/20 07/23/20 Miguel Culver PA-C 6405 [place] [address] Assigned Heart and Vascular Provider 05/25/20 04/29/21 [place] [address] [place] [address] Assigned PCP 05/05/22 10/19/22 documented as of this encounter
--- OUTSIDE RECORDS SUMMARY | 2024-01-02 08:38 | XMS_ITS | Encounter Summary ---
Author Organization [place] Address [address] [place] [address] Care Team Providers Care Mercerizer Machine Operator Name Role Phone Wesley Dugan MD Primary Care Provider [phone] Wesley Dugan MD Unavailable [phone] Nela Sheth RN Unavailable Unavailable Ella Matias PA-C Unavailable Santi Heller MD Unavailable [phone] Aashish Leone MD Unavailable Unavail able Tato Mallory MD Unavailable [phone] Chirag Taylor MD Primary Care Provider + Miguel Culver PA-C Unavailable [phone] Wesley Dugan MD Unavailable [phone] Encounter Details Date Type Department Care Team (Late st Contact Info) Description 09/30/2018 [facility] [address] [address] Varsha Jeronimo, JARON Social History Tobacco Use Types Packs/Day Years Used Date Smoking Tobacco: Former Cigarettes 0 1958 - 2016 Smokeless Tobacco: Never Alcohol Use Standard Drinks/Week Comments Not Currently 0 (1 standard drink = 0.6 oz pur e alcohol) PHQ-2 Answer Date Recorded PHQ-2 Score 4 03/18/2018 Sex and Gender Information Value Date Recorded Sex Assigned at Male 03/30/2018 7:28 AM SUPERVISOR TELEPHONE CLERKS Legal Sex Male 12:44 PM CDT Gender Identity Male 03/30/2018 7:28 AM SUPERVISOR TELEPHONE CLERKS Sexual Orientation Straight 02/18/2018 9: 07 AM SUPERVISOR TELEPHONE CLERKS documented as of this encounter Plan of Treatment Not on file documented as of this encounter Visit Diagnoses Not on filedocumented in this encounter Additional Health Concerns Infection Onset Date Last Indicated Resolved Time Rule Out COVID-19 07/27/2019 07/27/2019 07/27/2019 10:15 PM CDT Assessment Noted Time PHQ-9 Depression Total Score: 8 09/05/19 19 3:51 PM CDT documented as of this encounter Care Teams Mercerizer Machine Operator Relationship Specialty [place] [address] [place] [address] PCP - General Family Practice 03/14/21 [place] [address] [address] PCP - General 03/15/20 03/13/21 [place] [address] [place] [address] Assigned PCP 09/19/14 02/23/22 Nela Sheth RN Personal Advocate & Liaison (PAL) Family Practice 10/13/19 03/14/20 Ella Matias, PA-C 909 [place] [address] Assigned Cancer Care Provider 01/01/20 03/18/21 Santi Heller MD 6363 [facility] 500 [place] [address] Assigned Surgical Provider 01/01/2003/01 Aashish Leone MD Assigned Heart and Vascular Provider 01/01/20 05/07/20 [place] [address] [facility] 300 [place] [address] Assigned Musculoskeletal Provider 01/01/20 07/23/20 Miguel Culver PA-C 6405 [place] [address] Assigned Heart and Vascular Provider 05/25/20 04/29/21 [place] [address] [place] [address] Assigned PCP 05/05/22 10/19/22 documented as of this encounter
--- OUTSIDE RECORDS SUMMARY | 2024-01-02 08:38 | XMS_ITS | Encounter Summary ---
Author Organization [facility] Address [address] [place] [address]. [id number] Care Team Providers Care [employer] Name Role Phone Wesley Dugan MD Primary Care Provider [phone] Wesley Dugan MD Unavailable [phone] Nela Sheth RN Unavailable Unavailable Ella Matias PA-C Unavailable Santi Heller MD Unavailable [phone] Aashish Leone MD Unavailable Unavail able Tato Mallory MD Unavailable Chirag Taylor MD Primary Care Provider + Miguel Culver PA-C Unavailable [phone] Wesley Dugan MD Unavailable [phone] Reason for Visit * Reason Comments Medication Refill Encounter Details Date Type Department Care Team (Late st Contact Info) Description 01/24/2020 Refill [facility] [address] [place] [address] [place] [address] [place], [place] [id number] Medication Refill Social History Tobacco Use Types Packs/Day Years Used Date Smoking Tobacco: Former Cigarettes 0 1958 - 2016 Smokeless Tobacco: Never Alcohol Use Standard Drinks/Week Comments Not Currently 0 (1 standard drink = 0.6 oz pur e alcohol) PHQ-2 Answer Date Recorded PHQ-2 Score 2 10/16/2019 Sex and Gender Information Value Date Recorded Sex Assigned at Male 03/30/2018 7:28 AM FLATWORK W[employer]ER Legal Sex Male 12:44 PM CDT Gender Identity Male 03/30/2018 7:28 AM FLATWORK W[employer]ER Sexual Orientation Straight 02/18/2018 9: 07 AM FLATWORK WASHER COVID-19 Exposure Response Date Recorded In the last month, have you been in contact with someone who was confirmed or suspected to have Coronavirus / COVID-19? No / Unsure 01/15/2020 9:30 AM FLATWORK WASHER documented as of this encounter Miscellaneous Notes * Telephone Encounter - Amarilis Noble RN - 01/26/2020 1:38 PM CST Routing refill request to provider for review/approval because: Allergy warning Amarilis Noble RN, BSN WORK WASHER documented in this encounter Plan of Treatment [...] documented as of this encounter Care Teams [employer] Relationship Specialty [place] [address] [place] [address] PCP - General Family Practice 03/14/21 Chirag Taylor MD [address] [place] [address] PCP - General 03/15/20 03/13/21 [place] [address] [place] [address] Assigned PCP 09/19/14 02/23/22 Nela Sheth, RN Personal Advocate & Liaison (PAL) Family Practice 10/13/19 03/14/20 Ella Matias PA-C [address] [place] [address] Assigned Cancer Care Provider 01/01/20 03/18/21 Santi Heller MD [address] [facility] [address] [place] [address] Assigned Surgical Provider 01/01/2003/01 Aashish Leone MD Assigned Heart and Vascular Provider 01/01/20 05/07/20 [place] [address] [facility] [address] [place] [address] Assigned Musculoskeletal Provider 01/01/20 07/23/20 Miguel Culver PA-C [address] [facility] [place] [address] Assigned Heart and Vascular Provider 05/25/20 04/29/21 [place] [address] [place] [address] Assigned PCP 05/05/22 10/19/22 documented as of this encounter
== END 2024-01-02 08:32 | disposition home or self-care (01) ==
LOC: NFLDREF 08:32
PROVIDERS: PCP Internal Medicine; Visit Provider Internal Medicine
DX: I10 Essential (primary) hypertension (principal); I50.9 Heart failure, unspecified; Z79.01 Long term (current) use of anticoagulants
CPT/HCPCS: 80048